=== PATIENT | female | born 1930 | race African-American/Black ===

== ENCOUNTER 2016-10-18 21:53 | Inpatient (IN) | payer MEDICARE, BC ==
[~2016-10-18] VITALS: Ht 162.6 cm; Wt 57.2 kg
[~2016-10-18 21:53] MED LIST: AMLODIPINE BESYL5 MG ORAL; ASPIR 8181 MG ORAL; ASPIRIN-LOW81 MG ORAL; BACTRIM 400-801 EACH ORAL; BACTRIM DS TAB1 EAC1 ORAL; CENTRUM SILVER1 EAC4 PO; CLINDAMYCIN HC300 MG ORAL; COREG3.125 MG ORAL; DAILY VITE1 EACH ORAL; DOCUSATE SODIU100 M2 ORAL; FERROUS GLUCON325 M2 PO; FUROSEMIDE20 M1 ORAL; ISOSORBIDE DINI10 MG ORAL; LASIX20 M1 ORAL; LISINOPRIL10 MG ORAL; LISINOPRIL20 MG ORAL; LISINOPRIL5 MG ORAL; LOPRESSOR25 M1 ORAL; METOPROLOL TART50 M1 ORAL; MIRTAZAPINE15 M1 ORAL; NEXIUM40 MG ORAL; NITROSTAT0.4 M1 SL; NORCO 5-325 TA1 EACH ORAL; OMEPRAZOLE20 M2 ORAL; OMEPRAZOLE20 M3 ORAL; PRAVASTATIN SOD20 M1 ORAL; PRINIVIL10 MG ORAL; RANEXA500 MG ORAL; SENSIPAR30 MG ORAL; TYLENOL650 MG/20. ORAL; VITAMIN C500 MG/11 PO; XARELTO10 MG ORAL; XARELTO15 MG ORAL; nitrostat
--- NOTE | 2016-10-18 22:24 | Emergency Room Report ---
History of Present Illness General Chief Complaint: Chest Pain Source: Patient, Family Member, Medical Record, EMS Present Illness HPI 86 YOF BIBEMS with substernal, sharp 10/10 non-radiating chest pain, now resolved before any intervention. Occurred at rest. Also occurred and resolved earlier in day. Per daughter, patient recently here for blood transfusion. Per review of EMR, patient was supposed to go for endoscopy after DC in September - did not go. Patient still taking Xarelto per family member. Allergies: Coded Allergies: NO KNOWN ALLERGIES (Unverified Allergy, Unknown, 09/05/15) Patient History Past Medical History: HTN, other - DVT on Xarelto, CKD, HTN, HLD Past Surgical History: unable to obtain Pertinent Family History: unable to obtain Social History: Denies: alcohol use, drug use, smoking Now: No Immunizations: UTD Reviewed Nursing Documentation: PMH: Agreed, PSxH: Agreed Nursing Documentation-PMH Past Medical History: No History, Except For Hx Cardiac Problems: Yes - Heart attack 2012, hyperlipidemia, RA, Hx Hypertension: Yes Hx Pacemaker: Yes Hx Asthma: No Hx COPD: No Hx Diabetes: No Hx Cancer: No Hx Gastrointestinal Problems: No Hx Dialysis: No Hx Neurological Problems: No Hx Cerebrovascular Accident: No Hx Dementia: Yes Hx Seizures: No Hx Dizziness: Yes - 03/21/16 Hx Weakness: Yes Review of Systems All Other Systems: negative except mentioned in HPI Physical Exam Vital Signs Date Time Temp Pulse Resp B/P Pulse Ox O2 Delivery O2 Flow Rate FiO2 10/18/16 21:57 99.0 78 16 139/79 98 Room Air Sp02 EP Interpretation: reviewed, normal General Appearance: normal inspection, well appearing, no apparent distress, alert, GCS 15, non-toxic Head: normocephalic, atraumatic Eyes: bilateral eye EOMI, bilateral eye PERRL ENT: normal ENT inspection, hearing grossly normal, normal voice Neck: normal inspection, full range of motion, supple, no bony tend Respiratory: normal inspection, lungs clear, normal breath sounds, no respiratory distress, no retraction, no wheezing Cardiovascular #1: regular rate, rhythm, no edema Gastrointestinal: normal inspection, normal bowel sounds, non tender, soft, no guarding, no hernia Genitourinary: no CVA tenderness Musculoskeletal: normal inspection, back normal, normal range of motion, Gaurav' s Sign negative Neurologic: normal inspection, alert, oriented x3, responsive, fur blower III-XII nml as tested, motor strength/tone normal, speech normal Psychiatric: normal inspection, judgement/insight normal, mood/affect normal Skin: normal inspection, normal color, no rash Lymphatic: normal inspection Procedures Critical Care Time Critical Care Time 45 minutes Care for a 86 YO F with Chest pain. PMHx and CAD risk factors include: HTN, HLD , CKD Presents warm, good color, asymptomatic now. Patient immediately placed on youth nutritional monitor with rhytm strip and STAT EKG was obtained which showed NSR, no ischemia. Labs indicated: CBC, CMP, troponin Highly suspected: AMI vs. unstable angina vs MSK pain Possible interventions - Heparin, SL Ntg, Nitro drip, Thrombolytics, repeat EKG. ASA HELD. Patient on Xarelto Critical care time of 45 minutes including: re-exams and consultations and review of serial EKG's and Laboratory tests, not including reportable procedures. Medical Decision Making Diagnostic Impression: Primary Impression: Chest pain Qualified Codes: R07.9 - Chest pain, unspecified Additional Impression: CKD (chronic kidney disease) Qualified Codes: N18.1 - Chronic kidney disease, stage 1 ER Course 86 YO F with 2 episodes of chest pain, short in duration, now resolved. VSS. Afebrile. DDx ACS, UA, MSK pain, GERD Visit here for similar episode last month PLAN Cardiac, O2 monitor, CXR, labs, Reassess EKG Diagnostic Results Rate: other - Ventricular paced rhythm ST Segments: no acute changes Rhythm Strip Diag. Results EP Interpretation: yes Rate: 73 Rhythm: other - V paced rhytm Chest X-Ray Diagnostic Results EP Interpretation: Yes Findings: no consolidation, no effusion, no pneumothorax, no acute cardiopulmonary disease Number of Views: 1 Reevaluation Time: 23:45 Last Vital Signs Date Time Temp Pulse Resp B/P Pulse Ox O2 Delivery O2 Flow Rate FiO2 10/18/16 21:57 99.0 78 16 139/79 98 Room Air Reevaluation Impression Labs: H&H stable. No leuks. DEBBIE, likely CKD, c/w past serumCr values. Troponin 0. EKG is ventricular paced CXR No acute abnormalities to explain CP Admitted to Dr Cruz at 1145pm for tele for ACS, chest pain rule out Disposition: ADMITTED INPATIENT Condition: Critical NICANOR RAPHAEL M.D. 3, 2017 22:24
[2016-10-18 22:42] VITALS: BP 153/86
[2016-10-18 22:49] LABS: BASOPHILS % (AUTO) 1.5 % (0.0-2.0); EOSINOPHILS % (AUTO) 2.9 % (0.0-3.0); LYMPHOCYTES % (AUTO) 23.7 % (20.0-45.0); MEAN CORPUSCULAR HEMOGLOBIN 29.9 PG (27.0-31.0); MEAN CORPUSCULAR HGB CONC 31.8 G/DL (32.0-36.0); MEAN CORPUSCULAR VOLUME 94 FL (80-99); MEAN PLATELET VOLUME 5.6 FL (6.5-10.1); MONOCYTES % (AUTO) 7.8 % (1.0-10.0); PLATELET COUNT 310 K/UL (150-450); RED BLOOD COUNT 3.52 M/UL (4.20-5.40); WHITE BLOOD COUNT 7.3 K/UL (4.8-10.8)
[2016-10-18 23:05] LABS: ALANINE AMINOTRANSFERASE 8 U/L (3-33); ALBUMIN/GLOBULIN RATIO 0.9 (1.0-2.7); ANION GAP 12 (5-15); ASPARTATE AMINO TRANSFERASE 14 U/L (5-40); CALCIUM 10.9 mg/dL (8.6-10.2); CARBON DIOXIDE 26 mEQ/L (20-30); CHLORIDE 106 mEQ/L (98-107); CREATININE 1.2 mg/dL (0.5-0.9); HEMOLYSIS 2; POTASSIUM 4.1 mEQ/L (3.4-4.9); SODIUM 144 mEQ/L (135-145); TOTAL PROTEIN 6.6 g/dL (6.6-8.7); TROPONIN I < 0.30 ng/mL (<=0.30)
[2016-10-18 23:16] LABS: CKMB < 1.5 ng/mL (< 3.8)
[2016-10-18 23:54] LABS: INR 1.2 (0.9-1.1)
[2016-10-19] MEDS ORDERED: UNOBMED (00:15)
[2016-10-19 00:30] VITALS: BP 175/89
[2016-10-19 04:00] VITALS: BP 163/59
[2016-10-19 07:09] LABS: BASOPHILS % (AUTO) 2.8 % (0.0-2.0); EOSINOPHILS % (AUTO) 4.1 % (0.0-3.0); LYMPHOCYTES % (AUTO) 29.9 % (20.0-45.0); MEAN CORPUSCULAR HEMOGLOBIN 29.6 PG (27.0-31.0); MEAN CORPUSCULAR HGB CONC 31.9 G/DL (32.0-36.0); MEAN CORPUSCULAR VOLUME 93 FL (80-99); MEAN PLATELET VOLUME 5.7 FL (6.5-10.1); MONOCYTES % (AUTO) 8.1 % (1.0-10.0); NEUTROPHILS % (AUTO) 55.1 % (45.0-75.0); PLATELET COUNT 260 K/UL (150-450); RED BLOOD COUNT 3.22 M/UL (4.20-5.40); RED CELL DISTRIBUTION WIDTH 16.1 % (11.6-14.8); WHITE BLOOD COUNT 6.7 K/UL (4.8-10.8)
[2016-10-19 07:20] LABS: TROPONIN I < 0.30 ng/mL (<=0.30)
[2016-10-19 07:27] LABS: ALANINE AMINOTRANSFERASE 5 U/L (3-33); ALBUMIN/GLOBULIN RATIO 0.9 (1.0-2.7); ANION GAP 7 (5-15); ASPARTATE AMINO TRANSFERASE 11 U/L (5-40); CALCIUM 10.5 mg/dL (8.6-10.2); CARBON DIOXIDE 25 mEQ/L (20-30); CHLORIDE 108 mEQ/L (98-107); HEMOLYSIS 0; MAGNESIUM 1.6 mg/dL (1.7-2.5); PHOSPHORUS 2.1 mg/dL (2.5-4.8); POTASSIUM 3.8 mEQ/L (3.4-4.9); SODIUM 140 mEQ/L (135-145); TOTAL PROTEIN 5.7 g/dL (6.6-8.7)
[2016-10-19 08:39] VITALS: BP 162/92
[2016-10-19] MEDS ORDERED: Xarelto 15mg tab ORAL SCH (09:00)
--- NOTE | 2016-10-19 09:46 | Wound Care Consultation ---
Wound Assessment Wound Assessment #1: Wound Number: #1 Wound Present on Admission: Yes New Wound: No Status Change of Wound: No Wound Location Body Site Modif: left Wound Location Body Site: ischial tuberosity Wound Type: pressure ulcer Crystal Test: Does not Crystal Pressure Ulcer Stage: III - scattered Wound Thickness: Full Thickness Wound Length: 6.0 Wound Width: 4.0 Wound Depth: 0.2 Percent of Wound Crane/Red: 100 Wound Drainage Amount: None Wound Drainage Odor: None/Absent Tissue Surrounding Wound: Macerated Wound General Appearance: Reddened Wound Assessment #2: Wound Number: #2 Wound Present on Admission: Yes New Wound: No Status Change of Wound: No Wound Location Body Site Modif: right Wound Location Body Site: ischial tuberosity Wound Type: pressure ulcer Crystal Test: Does not Crystal Pressure Ulcer Stage: III - scattered. Wound Thickness: Full Thickness Wound Length: 5.0 Wound Width: 2.0 Wound Depth: 0.2 Percent of Wound Crane/Red: 100 Wound Drainage Amount: None Wound Drainage Odor: None/Absent Tissue Surrounding Wound: Macerated Wound General Appearance: Reddened Wound Assessment #3: Wound Number: #3 Wound Present on Admission: Yes New Wound: No Status Change of Wound: No Wound Location Body Site Modif: left, lateral Wound Location Body Site: malleolus/ankle Wound Type: pressure ulcer Crystal Test: Does not Crystal Pressure Ulcer Stage: deep tissue injury Wound Thickness: Full Thickness Wound Length: 1.5 Wound Width: 1.5 Wound Depth: utd Percent of Wound Purple/Maroon: 100 Wound Drainage Amount: None Wound Drainage Odor: None/Absent Tissue Surrounding Wound: Erythemic Wound General Appearance: Reddened - surrounding tissue is reddened. wound site is maroon in color. Wound Comment #1 Right Ischial Tuberosity Pressure Ulcers Scattered Stage III. #2 Left Ischial Tuberosity Pressure Ulcer Scattered Stage III. #3 Left Lateral Malleolus Pressure Ulcer Deep Tissue Injury. Recommendation -Low Air Loss Overlay. -Local wound care as ordered. -Turn and reposition. -Offload both feet and heels. -Heel Protectors. -Optimize Nutrition. -Keep Clean and dry. -Assess and follow up with MD for any changes noted. FAHAD SEGUNDO Oct 19, 2016 09:46
[2016-10-19] MEDS: Sensipar 30mg Tab ORAL SCH (11:17)
[2016-10-19] MEDS: Metoprolol 50mg tab ORAL SCH ×2 (11:18→20:57)
[2016-10-19 12:06] VITALS: BP 157/100
--- NOTE | 2016-10-19 13:30 | History & Physical ---
History and Physical History & Physicial Dictated for Int med-Dr Cruz no. [id number]. RICKY DAVIS Oct 19, 2016 13:30
--- NOTE | 2016-10-19 15:06 | GI Initial Consult Note ---
History of Present Illness General Date patient seen: Oct 19, 2016 Time patient seen: 15:05 Reason for Hospitalization: Chest Pain Referring physician: KAYLEY DAVIS Reason for Consultation: ANEMIA Present Illness HPI 86 YOF BIBEMS with substernal, sharp 10/10 non-radiating chest pain, now resolved before any intervention. Occurred at rest. Also occurred and resolved earlier in day. Per daughter, patient recently here for blood transfusion. Per review of EMR, patient was supposed to go for endoscopy after DC in September - did not go. Patient still taking Xarelto per family member. GI NOTE: HPI as noted above. Pt was admitted previously here at [facility] 2 weeks ago scheduled for EGD/colonoscopy to evaluate for anemia and was cancelled anesthesia due to elevated BP and irregular heart rate. She presents today with anemia and hypoalbuminemia. Pt seen on floor awake, A&Ox4 NAD with no complaints of chest pain at this moment. No GI complaints noted as well by the patient. Home Meds Active Scripts Lisinopril* (PRINIVIL*) 10 Mg Tablet, 10 MG ORAL DAILY for 30 Days, TAB Prov:ORLANDO LUDWIG N.PSalas 04/10/15 Reported Medications Unable to Obtain Medications (UNABLE TO OBTAIN MEDS) 1 Ea Ea 10/19/16 Rivaroxaban (XARELTO) 15 Mg Tablet, 15 MG ORAL DAILY, MG 0 Refills 10/08/16 Lisinopril (LISINOPRIL*) 20 Mg Tablet, 20 MG ORAL BID, TAB 09/30/16 Metoprolol Tartrate* (METOPROLOL TARTRATE*) 50 Mg Tablet, 50 MG ORAL BID, TAB 03/21/16 Cinacalcet* (SENSIPAR*) 30 Mg Tablet, 30 MG ORAL DAILY, TAB 03/21/16 Multivitamin (DAILY ULYSSES) 1 Each Tablet, 1 TAB ORAL DAILY, #30 TAB 0 Refills 03/21/16 Docusate Sodium (DOCUSATE SODIUM) 100 Mg Tablet, 100 MG ORAL TWICE A DAY, #60 TAB 0 Refills 03/21/16 Vit C/Ascorbate Ca/Ascorb Sod (VITAMIN C 500 MG/15 ML LIQUID) 500 Mg/15 Ml Liquid, 500 MG PO, ML 03/21/16 Mirtazapine (MIRTAZAPINE) 15 Mg Tab.rapdis, 15 MG ORAL BEDTIME, TAB 03/21/16 Esomeprazole Magnesium (NEXIUM) 40 Mg Capsule.dr, 40 MG ORAL DAILY, CAP 03/21/16 Amlodipine Besylate* (AMLODIPINE BESYLATE*) 5 Mg Tablet, 5 MG ORAL DAILY, TAB 09/05/15 Furosemide* (LASIX*) 20 Mg Tablet, 20 MG ORAL DAILY, TAB 09/05/15 Nitroglycerin (NITROSTAT) 0.4 Mg Tab.subl, 0.4 MG SL Q5M X3 DOSES Y for To Patient Comfort, #25 TAB 0 Refills 04/02/15 Ranolazine* (RANEXA*) 500 Mg Tab.er.12h, 500 MG ORAL DAILY, #60 TAB 0 Refills 04/02/15 Pravastatin Sod* (PRAVASTATIN SOD*) 20 Mg Tablet, 40 MG ORAL BEDTIME, TAB 05/31/14 Discontinued Reported Medications Acetaminophen (Acetaminophen) 650 Mg/20.3 Ml Solution, 650 MG ORAL Q6H Y for Prn Headache/Temp > 101, ML 0 Refills 04/05/16 Med list reviewed/reconciled: Yes Allergies: Coded Allergies: NO KNOWN ALLERGIES (Unverified Allergy, Unknown, 09/05/15) Patient History History Provided By: Patient, Medical Record PMH Narrative Past Medical History: HTN, other - DVT on Xarelto, CKD, HTN, HLD Past Surgical History: unable to obtain Pertinent Family History: unable to obtain Social History: Denies: alcohol use, drug use, smoking Now: No Immunizations: UTD Reviewed Nursing Documentation: PMH: Agreed, PSxH: Agreed Nursing Documentation-PMH Past Medical History: No History, Except For Hx Cardiac Problems: Yes - Heart attack 2013, hyperlipidemia, RA, Hx Hypertension: Yes Hx Pacemaker: Yes Hx Asthma: No Hx COPD: No Hx Diabetes: No Hx Cancer: No Hx Gastrointestinal Problems: No Hx Dialysis: No Hx Neurological Problems: No Hx Cerebrovascular Accident: No Hx Dementia: Yes Hx Seizures: No Hx Dizziness: Yes - 03/21/16 Hx Weakness: Yes Review of Systems All Other Systems: negative except mentioned in HPI Physical Exam Vital Signs Date Time Temp Pulse Resp B/P Pulse Ox O2 Delivery O2 Flow Rate FiO2 10/18/16 21:57 99.0 78 16 139/79 98 Room Air Sp02 EP Interpretation: reviewed Labs Laboratory Tests Test 10/18/16 22:33 10/18/16 23:10 10/19/16 06:50 White Blood Count 7.3 K/UL (4.8-10.8) 6.7 K/UL (4.8-10.8) Red Blood Count 3.52 M/UL (4.20-5.40) L 3.22 M/UL (4.20-5.40) L Hemoglobin 10.5 G/DL (12.0-16.0) L 9.5 G/DL (12.0-16.0) L Hematocrit 33.1 % (37.0-47.0) L 29.9 % (37.0-47.0) L Mean Corpuscular Volume 94 FL (80-99) 93 FL (80-99) Mean Corpuscular Hemoglobin 29.9 PG (27.0-31.0) 29.6 PG (27.0-31.0) Mean Corpuscular Hemoglobin Concent 31.8 G/DL (32.0-36.0) L 31.9 G/DL (32.0-36.0) L Red Cell Distribution Width 16.0 % (11.6-14.8) H 16.1 % (11.6-14.8) H Platelet Count 310 K/UL (150-450) 260 K/UL (150-450) Mean Platelet Volume 5.6 FL (6.5-10.1) L 5.7 FL (6.5-10.1) L Neutrophils (%) (Auto) 64.0 % (45.0-75.0) 55.1 % (45.0-75.0) Lymphocytes (%) (Auto) 23.7 % (20.0-45.0) 29.9 % (20.0-45.0) Monocytes (%) (Auto) 7.8 % (1.0-10.0) 8.1 % (1.0-10.0) Eosinophils (%) (Auto) 2.9 % (0.0-3.0) 4.1 % (0.0-3.0) H Basophils (%) (Auto) 1.5 % (0.0-2.0) 2.8 % (0.0-2.0) H Sodium Level 144 mEQ/L (135-145) 140 mEQ/L (135-145) Potassium Level 4.1 mEQ/L (3.4-4.9) 3.8 mEQ/L (3.4-4.9) Chloride Level 106 mEQ/L (98-107) 108 mEQ/L (98-107) H Carbon Dioxide Level 26 mEQ/L (20-30) 25 mEQ/L (20-30) Anion Gap 12 (5-15) 7 (5-15) Blood Urea Nitrogen 16 mg/dL (7-23) 14 mg/dL (7-23) Creatinine 1.2 mg/dL (0.5-0.9) H 1.0 mg/dL (0.5-0.9) H Estimat Glomerular Filtration Rate mL/min (>60) mL/min (>60) Glucose Level 104 mg/dL (74-106) 88 mg/dL (74-106) Calcium Level 10.9 mg/dL (8.6-10.2) H 10.5 mg/dL (8.6-10.2) H Total Bilirubin 0.6 mg/dL (0.0-1.2) 0.6 mg/dL (0.0-1.2) Aspartate Amino Transf (AST/SGOT) 14 U/L (5-40) 11 U/L (5-40) Alanine Aminotransferase (ALT/SGPT) 8 U/L (3-33) 5 U/L (3-33) Alkaline Phosphatase 61 U/L (35-104) 56 U/L (35-104) Total Creatine Kinase 10 U/L (26-140) L Creatine Kinase MB < 1.5 ng/mL (< 3.8) Creatine Kinase MB Relative Index 15.0 Troponin I < 0.30 ng/mL (<=0.30) < 0.30 ng/mL (<=0.30) Total Protein 6.6 g/dL (6.6-8.7) 5.7 g/dL (6.6-8.7) L Albumin 3.2 g/dL (3.5-5.2) L 2.8 g/dL (3.5-5.2) L Globulin 3.4 g/dL 2.9 g/dL Albumin/Globulin Ratio 0.9 (1.0-2.7) L 0.9 (1.0-2.7) L Prothrombin Time 12.0 SEC (9.30-11.50) H Prothromb Time International Ratio 1.2 (0.9-1.1) H Activated Partial Thromboplast Time 25 SEC (23-33) Phosphorus Level 2.1 mg/dL (2.5-4.8) L Magnesium Level 1.6 mg/dL (1.7-2.5) L General Appearance: well appearing, no apparent distress, alert Head: normocephalic EENT: normal ENT inspection Neck: full range of motion, supple Respiratory: normal breath sounds, no respiratory distress Cardiovascular: normal rate Gastrointestinal: non tender, soft, normal bowel sounds Rectal: deferred Neurologic: normal inspection, alert, oriented x3, responsive Psychiatric: normal inspection, judgement/insight normal, memory normal Skin: normal inspection, normal color, no rash Lymphatic: normal inspection, no adenopathy Current Medications Current Medications Medications (Trade) Dose Ordered Sig/David Route PRN Reason Start Time Stop Time Status Last Admin Dose Admin Amlodipine Besylate (Norvasc) 5 mg DAILY ORAL 10/19/16 09:00 11/18/16 08:59 10/19/16 11:17 Cinacalcet (Sensipar) 30 mg DAILY ORAL 10/19/16 09:00 11/18/16 08:59 10/19/16 11:17 Furosemide (Lasix) 20 mg DAILY ORAL 10/19/16 09:00 11/18/16 08:59 10/19/16 11:17 Metoprolol Tartrate (Lopressor) 50 mg Q12HR ORAL 10/19/16 09:00 11/18/16 08:59 10/19/16 11:18 Mirtazapine (Remeron) 15 mg BEDTIME ORAL 10/19/16 21:00 11/18/16 20:59 Pravastatin Sodium (Pravachol) 40 mg BEDTIME ORAL 10/19/16 21:00 11/18/16 20:59 Rivaroxaban (Xarelto) 15 mg DAILY ORAL 10/19/16 09:00 11/18/16 08:59 10/19/16 11:17 GI: Plan Problems: (1) chest pain (2) Hypoalbuminemia (3) Iron deficiency (4) Alzheimer's dementia (5) Anemia Plan hold tomorrow's dose of Xarelto 15mg for possible EGD/colonoscopy monday, will d /w cardiology before scheduling. monitor H&H >> transfused prn anemia work up OB stool uncollected ordered iron panel bowel regime H2 fu labs Discussed with Dr. Miles. Thank you for referring this patient, we will follow. Lyndsay Torres N.P. Oct 19, 2016 15:05
[2016-10-19 16:00] VITALS: BP 154/94
[2016-10-19] MEDS: Docusate 100mg cap ORAL SCH (17:53)
--- NOTE | 2016-10-19 18:47 | History and Physical Report ---
DATE OF ADMISSION: 10/18/2016 CHIEF COMPLAINT: The patient is an 86-year-old female, presents with chief complaint of chest pain. HISTORY OF PRESENT ILLNESS: The patient was admitted to [facility] in September 2016. Please see history and physical and discharge summary dictated at that time. The patient presented to [place] emergency room complaining of chest pain. The patient herself is a poor historian. Much of the history and physical is obtained from the patient's chart and the patient's daughter. According to the daughter, the chest pain was 10/10 in intensity, did not radiate to the jaw or to the arm. The patient presented to [place] emergency room. The patient was admitted for chest pain to rule out acute myocardial infarction. PAST MEDICAL HISTORY: Significant for 1. Hypertension. 2. Diabetes type 2. 3. Peripheral vascular disease. 4. Coronary artery disease, status post non-ST elevated [place]. 5. Paroxysmal atrial fibrillation. 6. History of right lower extremity deep venous thrombosis, on Xarelto. 7. Anemia. 8. Arthritis. 9. History of renal failure. PAST SURGICAL HISTORY: Significant for Biotronik pacemaker implantation. CURRENT MEDICATIONS: 1. Amlodipine 5 mg one tablet p.o. daily. 2. Sensipar 30 mg one tablet p.o. daily. 3. Nexium 40 mg one tablet p.o. daily. 4. Lasix 20 mg one tablet p.o. daily. 5. Lisinopril 20 mg one tablet p.o. twice daily. 6. Metoprolol 50 mg one tablet p.o. twice daily. 7. Mirtazapine 15 mg one tablet p.o. at bedtime. 8. Multivitamin daily. 9. Nitroglycerin. 10. Pravastatin 40 mg one tablet p.o. at bedtime. 11. Ranexa 500 mg one tablet p.o. daily. 12. Xarelto 15 mg one tablet p.o. daily. ALLERGIES: No known drug allergies. SOCIAL HISTORY: The patient lives with her granddaughter, Sisi Michaud. The patient denies tobacco or alcohol use. REVIEW OF SYSTEMS: Constitutional: The patient denies weight loss or weight gain. The patient denies fevers or chills. HEENT: The patient denies ear or throat pain. Cardiovascular: The patient denies palpitations. The patient does complain of chest pain as above. Abdomen: The patient denies nausea, vomiting, diarrhea or constipation. Genitourinary: The patient denies dysuria or frequency of urination. Neuromuscular: The patient denies seizures or generalized weakness. PHYSICAL EXAMINATION: GENERAL: The patient is well developed and well nourished, thin appearing female, in no apparent distress. VITAL SIGNS: Temperature 97.5 degrees, respirations 20, pulse 69, and blood pressure 162/92. HEENT: Eyes, pupils are equal and responsive to light and accommodation. Extraocular moves are intact. NECK: Supple without lymphadenopathy. CHEST: Lungs are clear to auscultation bilaterally without wheezes or rales. CARDIOVASCULAR: Regular rhythm and rate. S1 and S2 normal without murmurs, rubs, or gallops. ABDOMEN: Soft, nontender, and nondistended. Positive bowel sounds. No evidence of hepatosplenomegaly. Currently no rebound or guarding noted. EXTREMITIES: Negative for clubbing, cyanosis, or edema. RECTAL: Refused. GENITAL: Refused. NEUROLOGIC: Cranial nerves II through XII are grossly intact without focal deficits. Motor strength is 5/5 bilaterally. Deep tendon reflexes are 2+ plantar. LABORATORY AND DIAGNOSTIC DATA: WBC 7.3, hemoglobin 10.5, hematocrit 33.1, and platelets 310,000. Sodium 144, potassium 4.1, chloride 106, CO2 26, BUN 16, creatinine 1.2, and glucose 104. Troponin normal at less than 0.3. ASSESSMENT: This is an 86-year-old female 1. Chest pain. 2. History of anemia. 3. Hypertension. 4. Diabetes type 2. 5. History of coronary artery disease. 6. Renal failure. 7. Paroxysmal atrial fibrillation. 8. History of right lower extremity deep venous thrombosis. 9. Arthritis. 10. Alzheimer's dementia. 11. Pacemaker in situ. TREATMENT: 1. Chest pain. A Cardiology consultation with Dr. Hal Davenport. Serial troponin levels will be run. A Cardiolite stress test may or may not be performed secondary to the patient's age. We will follow recommendations of Cardiology, Dr. Davenport. 2. Hypertension. Continue lisinopril and metoprolol as above. 3. Diabetes type 2. The patient has been placed on a regular insulin sliding scale. 4. Hypercholesterolemia. Continue Pravachol as above. 5. History of coronary artery disease. As above Cardiology consultation with Dr. Hal Davenport. 6. History of renal failure. 7. History of paroxysmal atrial fibrillation. 8. Right lower extremity deep venous thrombosis, Xarelto is currently at 15 mg daily. Continue Xarelto as above. 9. History of arthritis. 10. History of Alzheimer's dementia. 11. Pacemaker in situ. Bradley Holland M.D. DR: BELA JOB#: [id number] CC:
[2016-10-19 20:00] VITALS: BP 156/74
[2016-10-19] MEDS: Miralax 17gm pkt ORAL SCH (20:57)
[2016-10-20 00:15] VITALS: BP 154/97
[2016-10-20 04:00] VITALS: BP 160/95
[2016-10-20 07:51] VITALS: BP 164/99
[2016-10-20 08:04] LABS: EOSINOPHILS % (AUTO) 3.1 % (0.0-3.0); LYMPHOCYTES % (AUTO) 27.3 % (20.0-45.0); MEAN CORPUSCULAR HEMOGLOBIN 30.2 PG (27.0-31.0); MEAN CORPUSCULAR HGB CONC 32.4 G/DL (32.0-36.0); MEAN CORPUSCULAR VOLUME 93 FL (80-99); MEAN PLATELET VOLUME 5.6 FL (6.5-10.1); NEUTROPHILS % (AUTO) 60.7 % (45.0-75.0); PLATELET COUNT 300 K/UL (150-450); RED BLOOD COUNT 3.98 M/UL (4.20-5.40); RED CELL DISTRIBUTION WIDTH 16.4 % (11.6-14.8)
[2016-10-20 08:20] LABS: ANION GAP 10 (5-15); CALCIUM 10.9 mg/dL (8.6-10.2); CARBON DIOXIDE 26 mEQ/L (20-30); CHLORIDE 106 mEQ/L (98-107); HEMOLYSIS 26; POTASSIUM 3.8 mEQ/L (3.4-4.9); SODIUM 142 mEQ/L (135-145)
[2016-10-20 08:23] LABS: TROPONIN I < 0.30 ng/mL (<=0.30)
[2016-10-20 08:29] LABS: HEMOLYSIS 11; IRON 53 ug/dL (37-145); TOTAL IRON BINDING CAPACITY 186 ug/dL (250-400)
[2016-10-20] MEDS: Sensipar 30mg Tab ORAL SCH (09:22)
[2016-10-20] MEDS: Docusate 100mg cap ORAL SCH ×3 (09:22→17:46)
[2016-10-20] MEDS: Metoprolol 50mg tab ORAL SCH (09:26)
[2016-10-20 12:01] VITALS: BP 166/111
--- NOTE | 2016-10-20 14:12 | GI Progress Note ---
Assessment/Plan Problems: (1) Anemia ICD Codes: D64.9 - Anemia, unspecified SNOMED: 326670639 (2) Iron deficiency ICD Codes: E61.1 - Iron deficiency SNOMED: 89183116 (3) Hypoalbuminemia ICD Codes: E88.09 - Other disorders of plasma-protein metabolism, not elsewhere classified SNOMED: 679869628 Status: stable Status Narrative Discussed with Dr. Miles. Assessment/Plan patient had EGD/colonoscopy last year 10/31. See full report below. pt scheduled for outpatient capsule endoscopy to evaluate anemia. monitor H&H >> transfused prn PPI daily given history of severe gastritis adv diet iron deficient >> venofer bowel regime okay to cont all cardiac medications fu labs The patient was seen and examined at bedside and all new and available data was reviewed in the patients chart. I agree with the above findings, impression and plan. (Patient seen earlier today. Signature stamp does not reflect patient encounter time.). -Ruben Miles MD Subjective Gastrointestinal/Abdominal: Reports: no symptoms Objective Last 24 Hour Vital Signs Date Time Temp Pulse Resp B/P Pulse Ox O2 Delivery O2 Flow Rate FiO2 10/20/16 12:01 97.5 81 20 166/111 96 Room Air 10/20/16 09:26 96 164/99 10/20/16 09:24 96 164/99 10/20/16 07:51 97.7 20 164/99 99 Room Air 10/20/16 07:43 77 10/20/16 04:00 74 10/20/16 04:00 97.3 73 20 160/95 99 Room Air 10/20/16 00:15 97.7 73 20 154/97 98 Room Air 10/20/16 00:00 78 10/19/16 20:57 69 156/74 10/19/16 20:00 97.7 69 20 156/74 98 Room Air 10/19/16 20:00 70 10/19/16 16:00 97.5 71 18 154/94 100 Room Air 10/19/16 16:00 69 Intake and Output 10/19/16 10/20/16 19:00 07:00 Intake Total 120 ml Output Total 450 ml Balance 120 ml -450 ml Intake Oral 120 ml Output Urine Total 450 ml # Voids 1 6 # Bowel Movements 2 Laboratory Tests Test 10/20/16 06:55 White Blood Count 8.0 K/UL (4.8-10.8) Red Blood Count 3.98 M/UL (4.20-5.40) L Hemoglobin 12.0 G/DL (12.0-16.0) Hematocrit 37.1 % (37.0-47.0) Mean Corpuscular Volume 93 FL (80-99) Mean Corpuscular Hemoglobin 30.2 PG (27.0-31.0) Mean Corpuscular Hemoglobin Concent 32.4 G/DL (32.0-36.0) Red Cell Distribution Width 16.4 % (11.6-14.8) H Platelet Count 300 K/UL (150-450) Mean Platelet Volume 5.6 FL (6.5-10.1) L Neutrophils (%) (Auto) 60.7 % (45.0-75.0) Lymphocytes (%) (Auto) 27.3 % (20.0-45.0) Monocytes (%) (Auto) 7.0 % (1.0-10.0) Eosinophils (%) (Auto) 3.1 % (0.0-3.0) H Basophils (%) (Auto) 2.0 % (0.0-2.0) Sodium Level 142 mEQ/L (135-145) Potassium Level 3.8 mEQ/L (3.4-4.9) Chloride Level 106 mEQ/L (98-107) Carbon Dioxide Level 26 mEQ/L (20-30) Anion Gap 10 (5-15) Blood Urea Nitrogen 12 mg/dL (7-23) Creatinine 1.0 mg/dL (0.5-0.9) H Estimat Glomerular Filtration Rate mL/min (>60) Glucose Level 80 mg/dL (74-106) Calcium Level 10.9 mg/dL (8.6-10.2) H Iron Level 53 ug/dL (37-145) Total Iron Binding Capacity 186 ug/dL (250-400) L Percent Iron Saturation 28 % (15-50) Unsaturated Iron Binding 133 ug/dL (112-346) Troponin I < 0.30 ng/mL (<=0.30) Height (Feet): 5 Height (Inches): 4.00 Weight (Pounds): 126 General Appearance: no apparent distress, alert, thin Cardiovascular: normal rate Respiratory/Chest: normal breath sounds, no respiratory distress Abdominal Exam: normal bowel sounds, non tender, soft Objective DATE OF PROCEDURE: 10/23/2015 SURGEON: Ruben Miles M.D. ANESTHESIOLOGIST: Rolando Anaya M.D. PROCEDURE: Upper endoscopy with biopsy and colonoscopy with biopsy and polypectomy. INDICATION: Anemia, screening colonoscopy evaluation, abdominal pain, and GERD. SUMMARY OF FINDINGS: 1. Severe gastritis, status post biopsy. 2. Duodenal polyp, status post biopsy. 3. Inflammatory looking polyp in the antrum of the stomach, status post biopsy. 4. Paraesophageal hernia. 5. Two colonic polyp removed, see above for details. 6. Diverticulosis. 7. Internal hemorrhoids. RECOMMENDATIONS: Follow up biopsy results and treat accordingly. Lyndsay Torres N.P. Oct 20, 2016 14:12 RUBEN MILES Oct 21, 2016 08:47
[2016-10-20 16:00] VITALS: BP 153/103
--- NOTE | 2016-10-20 16:46 | Cardiac Electrophysiology PN ---
Subjective Subjective [id number] Objective Last 24 Hour Vital Signs Date Time Temp Pulse Resp B/P Pulse Ox O2 Delivery O2 Flow Rate FiO2 10/20/16 12:01 97.5 81 20 166/111 96 Room Air 10/20/16 09:26 96 164/99 10/20/16 09:24 96 164/99 10/20/16 07:51 97.7 20 164/99 99 Room Air 10/20/16 07:43 77 10/20/16 04:00 74 10/20/16 04:00 97.3 73 20 160/95 99 Room Air 10/20/16 00:15 97.7 73 20 154/97 98 Room Air 10/20/16 00:00 78 10/19/16 20:57 69 156/74 10/19/16 20:00 97.7 69 20 156/74 98 Room Air 10/19/16 20:00 70 Intake and Output 10/19/16 10/20/16 19:00 07:00 Intake Total 120 ml Output Total 450 ml Balance 120 ml -450 ml Intake Oral 120 ml Output Urine Total 450 ml # Voids 1 6 # Bowel Movements 2 Laboratory Tests Test 10/20/16 06:55 White Blood Count 8.0 K/UL (4.8-10.8) Red Blood Count 3.98 M/UL (4.20-5.40) L Hemoglobin 12.0 G/DL (12.0-16.0) Hematocrit 37.1 % (37.0-47.0) Mean Corpuscular Volume 93 FL (80-99) Mean Corpuscular Hemoglobin 30.2 PG (27.0-31.0) Mean Corpuscular Hemoglobin Concent 32.4 G/DL (32.0-36.0) Red Cell Distribution Width 16.4 % (11.6-14.8) H Platelet Count 300 K/UL (150-450) Mean Platelet Volume 5.6 FL (6.5-10.1) L Neutrophils (%) (Auto) 60.7 % (45.0-75.0) Lymphocytes (%) (Auto) 27.3 % (20.0-45.0) Monocytes (%) (Auto) 7.0 % (1.0-10.0) Eosinophils (%) (Auto) 3.1 % (0.0-3.0) H Basophils (%) (Auto) 2.0 % (0.0-2.0) Sodium Level 142 mEQ/L (135-145) Potassium Level 3.8 mEQ/L (3.4-4.9) Chloride Level 106 mEQ/L (98-107) Carbon Dioxide Level 26 mEQ/L (20-30) Anion Gap 10 (5-15) Blood Urea Nitrogen 12 mg/dL (7-23) Creatinine 1.0 mg/dL (0.5-0.9) H Estimat Glomerular Filtration Rate mL/min (>60) Glucose Level 80 mg/dL (74-106) Calcium Level 10.9 mg/dL (8.6-10.2) H Iron Level 53 ug/dL (37-145) Total Iron Binding Capacity 186 ug/dL (250-400) L Percent Iron Saturation 28 % (15-50) Unsaturated Iron Binding 133 ug/dL (112-346) Troponin I < 0.30 ng/mL (<=0.30) Microbiology Date/Time Source Procedure Growth Status 10/19/16 00:15 Rectum VRE Culture - Final Enterococcus Faecalis - Vre Complete STAR ROA Oct 20, 2016 16:46
--- NOTE | 2016-10-20 17:01 | Internal Med Progress Note ---
Subjective Date of Service: Oct 20, 2016 Physician Name Bradley Davis Attending Physician Titi Cruz MD Current Medications Medications (Trade) Dose Ordered Sig/David Route PRN Reason Start Time Stop Time Status Last Admin Dose Admin Cinacalcet (Sensipar) 30 mg DAILY ORAL 10/19/16 09:00 11/18/16 08:59 10/20/16 09:22 Docusate Sodium (Colace) 100 mg THREE TIMES A DAY ORAL 10/19/16 18:00 11/18/16 17:59 10/20/16 13:40 Furosemide (Lasix) 20 mg DAILY ORAL 10/19/16 09:00 11/18/16 08:59 10/20/16 09:23 Metoprolol Tartrate (Lopressor) 100 mg Q12HR ORAL 10/20/16 21:00 11/19/16 20:59 Mirtazapine (Remeron) 15 mg BEDTIME ORAL 10/19/16 21:00 11/18/16 20:59 10/19/16 20:57 Pantoprazole (Protonix) 40 mg DAILY ORAL 10/21/16 09:00 11/20/16 08:59 Polyethylene Glycol (Miralax) 17 gm BEDTIME ORAL 10/19/16 21:00 11/18/16 20:59 10/19/16 20:57 Pravastatin Sodium (Pravachol) 40 mg BEDTIME ORAL 10/19/16 21:00 11/18/16 20:59 10/19/16 20:56 Allergies: Coded Allergies: NO KNOWN ALLERGIES (Unverified Allergy, Unknown, 09/05/15) ROS Limited/Unobtainable: Yes Subjective Cover for Int Med-Dr Cruz Objective Last Vital Signs Date Time Temp Pulse Resp B/P Pulse Ox O2 Delivery O2 Flow Rate FiO2 10/20/16 12:01 97.5 81 20 166/111 96 Room Air General Appearance: mild distress, thin EENT: PERRL/EOMI, normal ENT inspection Neck: non-tender, normal alignment, supple Cardiovascular: normal peripheral pulses, normal rate, no gallop/murmur, no JVD , irregularly irregular Respiratory/Chest: chest wall non-tender, lungs clear, normal breath sounds, no respiratory distress, no accessory muscle use Abdomen: normal bowel sounds, non tender, soft, no organomegaly, no mass Extremities: normal range of motion, non-tender 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: 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 grossly normal, no motor/sensory deficits Skin: normal pigmentation, warm/dry Laboratory Tests Test 10/20/16 06:55 White Blood Count 8.0 K/UL (4.8-10.8) Red Blood Count 3.98 M/UL (4.20-5.40) L Hemoglobin 12.0 G/DL (12.0-16.0) Hematocrit 37.1 % (37.0-47.0) Mean Corpuscular Volume 93 FL (80-99) Mean Corpuscular Hemoglobin 30.2 PG (27.0-31.0) Mean Corpuscular Hemoglobin Concent 32.4 G/DL (32.0-36.0) Red Cell Distribution Width 16.4 % (11.6-14.8) H Platelet Count 300 K/UL (150-450) Mean Platelet Volume 5.6 FL (6.5-10.1) L Neutrophils (%) (Auto) 60.7 % (45.0-75.0) Lymphocytes (%) (Auto) 27.3 % (20.0-45.0) Monocytes (%) (Auto) 7.0 % (1.0-10.0) Eosinophils (%) (Auto) 3.1 % (0.0-3.0) H Basophils (%) (Auto) 2.0 % (0.0-2.0) Sodium Level 142 mEQ/L (135-145) Potassium Level 3.8 mEQ/L (3.4-4.9) Chloride Level 106 mEQ/L (98-107) Carbon Dioxide Level 26 mEQ/L (20-30) Anion Gap 10 (5-15) Blood Urea Nitrogen 12 mg/dL (7-23) Creatinine 1.0 mg/dL (0.5-0.9) H Estimat Glomerular Filtration Rate mL/min (>60) Glucose Level 80 mg/dL (74-106) Calcium Level 10.9 mg/dL (8.6-10.2) H Iron Level 53 ug/dL (37-145) Total Iron Binding Capacity 186 ug/dL (250-400) L Percent Iron Saturation 28 % (15-50) Unsaturated Iron Binding 133 ug/dL (112-346) Troponin I < 0.30 ng/mL (<=0.30) Microbiology Date/Time Source Procedure Growth Status 10/19/16 00:15 Rectum VRE Culture - Final Enterococcus Faecalis - Vre Complete Intake and Output 10/19/16 10/20/16 19:00 07:00 Intake Total 120 ml Output Total 450 ml Balance 120 ml -450 ml Intake Oral 120 ml Output Urine Total 450 ml # Voids 1 6 # Bowel Movements 2 Assessment/Plan Problem List: (1) Hypertension Assessment & Plan: Cont Metoprolol (2) Chest pain Assessment & Plan: See cardiology note. (3) Diabetes mellitus (4) Atrial fibrillation Assessment & Plan: See cardiology note. (5) CAD (coronary artery disease) (6) Hypercholesteremia Assessment & Plan: Cont pravachol. (7) Renal failure (8) History of DVT (deep vein thrombosis) Assessment & Plan: Hold xarelto due to history of GI bleed (9) Alzheimer's dementia (10) Pacemaker Status: not improved BRADLEY DAVIS Oct 20, 2016 17:01
[2016-10-20] MEDS ORDERED: Norco 5mg/325mg tab ORAL PRN (17:15)
[2016-10-20 20:00] VITALS: BP 138/77
[2016-10-20] MEDS: Miralax 17gm pkt ORAL SCH ×2 (20:11→21:00)
[2016-10-21] VITALS (7 sets, daily range): BP systolic 113–145; BP diastolic 62–84
--- NOTE | 2016-10-21 00:28 | Consultation ---
DATE OF CONSULTATION: CARDIOLOGY CONSULTATION CONSULTING PHYSICIAN: Hal Davenport M.D. REFERRING PHYSICIAN: Titi Cruz M.D. REASON FOR CONSULTATION: Hypertension and atrial fibrillation with evaluation of the patient's pacemaker. HISTORY OF PRESENT ILLNESS: The patient is a very pleasant 86-year-old lady under my cardiology care, who was just discharged from the hospital some 10 days ago. The patient has a history of hypertension, chronic atrial fibrillation, on anticoagulation as well as history of Biotronik pacemaker implantation by me, who has also had her pacemaker checked in my office recently. The patient also has chronic kidney disease with creatinine of 1.8. On previous admission, the patient was found to be profoundly anemic with hemoglobin of 7.2, and the patient's Xarelto was discontinued at that time. The patient was brought to the emergency room where she was complaining of chest pain. She states that the pain was 10/10, but did not have any radiation. It was not associated with shortness of breath either. At the time of my evaluation, the pain had completely resolved. Her EKG showed baseline atrial fibrillation and ventricularly paced rhythm. PAST MEDICAL HISTORY: 1. Hypertension. 2. Diabetes. 3. Chronic atrial fibrillation. 4. History of Biotronik pacemaker implantation as mentioned above. 5. History of coronary artery disease with non-ST elevation myocardial infarction. 6. Profound anemia with hemoglobin around 5. 7. Right lower extremity DVT, for which she was on Xarelto. 8. Hyperlipidemia. FAMILY HISTORY: Noncontributory. SOCIAL HISTORY: She lives at home. Does not smoke or drink alcohol. REVIEW OF SYSTEM: Review of systems was performed and was negative other than what was mentioned in the history of present illness. PHYSICAL EXAMINATION: VITAL SIGNS: Blood pressure is 130/70, pulse is 80, respirations 18, and she is afebrile. NECK: Shows no JVD. LUNGS: Decreased breath sounds. CARDIOVASCULAR: Irregular S1 and S2 with a 2/6 systolic murmur, rhythm. ABDOMEN: Soft. EXTREMITIES: Have 2+ pitting edema. LABORATORY DATA: Show white count of 8, hemoglobin of 12, hematocrit of 37, and platelet count is 300,000. Sodium is 142, potassium 3.8, BUN of 12, creatinine of 1, and glucose of 80. Troponin is negative x2. ASSESSMENT AND PLAN: 1. Atypical chest pain. The patient was ruled out for myocardial infarction. EKG is not interpretable as she is ventricularly paced. The patient does not have any further chest pain. At this time, we will treat the patient medically with metoprolol 50 mg b.i.d. 2. She also has Biotronik pacemaker implantation that was interrogated on previous admission, showed normal function. 3. Hypertension, on metoprolol 50 mg b.i.d., Norvasc 5 mg, and Lasix 20 mg daily. 4. Hyperlipidemia, on Pravachol. 5. Chronic kidney disease. 6. Iron-deficiency anemia. The patient had esophagogastroduodenoscopy and colonoscopy in October 2015 and will be scheduled for outpatient endoscopy to evaluate for anemia and transfusion on a p.r.n. basis. Thank you very much, Dr. Cruz, for allowing me to participate in the care of this patient. Please do not hesitate to contact me if you have any questions regarding my evaluation. Hal Davenport M.D. DR: ALTON JOB#: [id number] CC:
[2016-10-21 06:54] LABS: BASOPHILS % (AUTO) 1.9 % (0.0-2.0); EOSINOPHILS % (AUTO) 1.9 % (0.0-3.0); LYMPHOCYTES % (AUTO) 18.3 % (20.0-45.0); MEAN CORPUSCULAR VOLUME 94 FL (80-99); MEAN PLATELET VOLUME 6.1 FL (6.5-10.1); MONOCYTES % (AUTO) 6.9 % (1.0-10.0); PLATELET COUNT 316 K/UL (150-450); RED BLOOD COUNT 4.14 M/UL (4.20-5.40); RED CELL DISTRIBUTION WIDTH 16.4 % (11.6-14.8); WHITE BLOOD COUNT 9.4 K/UL (4.8-10.8)
[2016-10-21 07:25] LABS: ANION GAP 13 (5-15); CALCIUM 10.7 mg/dL (8.6-10.2); CARBON DIOXIDE 25 mEQ/L (20-30); CHLORIDE 104 mEQ/L (98-107); HEMOLYSIS 9; POTASSIUM 3.8 mEQ/L (3.4-4.9); SODIUM 142 mEQ/L (135-145)
--- NOTE | 2016-10-21 08:33 | Cardiac Electrophysiology PN ---
Assessment/Plan Assessment/Plan 1. Atypical chest pain. The patient was ruled out for myocardial infarction. EKG is not interpretable as she is ventricularly paced. The patient does not have any further chest pain. Continue medical treatment with metoprolol 50 mg b.i.d. 2D echo 10/05/16 showed EF 65-70% 2. She also has Biotronik pacemaker implantation , will be reinterrogated today. 4. Atrial fibrillation, rate is currently controlled and is actually mostly ventricular paced. Continue metoprolol 50 mg b.i.d. Off anticoagulation for severe bleeding. 5. Hypertension, on metoprolol 50 mg b.i.d., Norvasc 5 mg, and Lasix 20 mg daily. 6. Hyperlipidemia, on Pravachol. 7. Chronic kidney disease. 8. Iron-deficiency anemia. The patient had esophagogastroduodenoscopy and colonoscopy in October 2015.Follow up with Dr Ginger TRAN RN Subjective Subjective Comfortable in NAD. Laying flat in bed. Fib with V pacing.RN at bedside. Objective Last 24 Hour Vital Signs Date Time Temp Pulse Resp B/P Pulse Ox O2 Delivery O2 Flow Rate FiO2 10/21/16 04:15 97.3 71 20 137/84 94 Room Air 10/21/16 04:07 71 10/21/16 00:39 97.0 71 20 113/62 95 10/21/16 00:04 72 10/20/16 20:00 73 10/20/16 20:00 77 18 138/77 96 Room Air 10/20/16 17:53 162/98 10/20/16 16:00 97.9 74 18 153/103 99 Room Air 10/20/16 16:00 68 10/20/16 12:01 97.5 81 20 166/111 96 Room Air 10/20/16 09:26 96 164/99 10/20/16 09:24 96 164/99 Intake and Output 10/20/16 10/21/16 19:00 07:00 Intake Total 240 ml Balance 240 ml Intake Oral 240 ml # Voids 2 1 Laboratory Tests Test 10/21/16 05:50 White Blood Count 9.4 K/UL (4.8-10.8) Red Blood Count 4.14 M/UL (4.20-5.40) L Hemoglobin 12.4 G/DL (12.0-16.0) Hematocrit 38.8 % (37.0-47.0) Mean Corpuscular Volume 94 FL (80-99) Mean Corpuscular Hemoglobin 30.0 PG (27.0-31.0) Mean Corpuscular Hemoglobin Concent 32.0 G/DL (32.0-36.0) Red Cell Distribution Width 16.4 % (11.6-14.8) H Platelet Count 316 K/UL (150-450) Mean Platelet Volume 6.1 FL (6.5-10.1) L Neutrophils (%) (Auto) 71.0 % (45.0-75.0) Lymphocytes (%) (Auto) 18.3 % (20.0-45.0) L Monocytes (%) (Auto) 6.9 % (1.0-10.0) Eosinophils (%) (Auto) 1.9 % (0.0-3.0) Basophils (%) (Auto) 1.9 % (0.0-2.0) Sodium Level 142 mEQ/L (135-145) Potassium Level 3.8 mEQ/L (3.4-4.9) Chloride Level 104 mEQ/L (98-107) Carbon Dioxide Level 25 mEQ/L (20-30) Anion Gap 13 (5-15) Blood Urea Nitrogen 13 mg/dL (7-23) Creatinine 1.0 mg/dL (0.5-0.9) H Estimat Glomerular Filtration Rate mL/min (>60) Glucose Level 92 mg/dL (74-106) Calcium Level 10.7 mg/dL (8.6-10.2) H Microbiology Date/Time Source Procedure Growth Status 10/19/16 00:15 Rectum VRE Culture - Final Enterococcus Faecalis - Vre Complete Objective NECK: Mild JVD. LUNGS: Decreased breath sounds. CARDIOVASCULAR: Irregular S1 and S2 with a 2/6 systolic murmur, pacer subclavian area. ABDOMEN: Soft. EXTREMITIES: 1+ pitting edema. STAR ROA Oct 21, 2016 08:33
[2016-10-21] MEDS: Sensipar 30mg Tab ORAL SCH (10:07)
[2016-10-21] MEDS: Docusate 100mg cap ORAL SCH ×3 (10:07→18:00)
--- NOTE | 2016-10-21 10:46 | GI Progress Note ---
Assessment/Plan Problems: (1) Anemia ICD Codes: D64.9 - Anemia, unspecified SNOMED: 090516539 (2) Iron deficiency ICD Codes: E61.1 - Iron deficiency SNOMED: 22646010 (3) Hypoalbuminemia ICD Codes: E88.09 - Other disorders of plasma-protein metabolism, not elsewhere classified SNOMED: 984449968 Status: stable Status Narrative Discussed with Dr. Miles. Assessment/Plan ok dc per GI standpoint patient had EGD/colonoscopy last year 10/31. See full report below. pt scheduled for outpatient capsule endoscopy to evaluate anemia. monitor H&H >> transfused prn PPI daily given history of severe gastritis adv diet iron deficient >> venofer bowel regime okay to cont all cardiac medications fu labs Subjective Gastrointestinal/Abdominal: Reports: no symptoms Objective Last 24 Hour Vital Signs Date Time Temp Pulse Resp B/P Pulse Ox O2 Delivery O2 Flow Rate FiO2 10/21/16 08:45 97.7 94 18 136/80 95 Room Air 10/21/16 04:15 97.3 71 20 137/84 94 Room Air 10/21/16 04:07 71 10/21/16 00:39 97.0 71 20 113/62 95 10/21/16 00:04 72 10/20/16 20:00 73 10/20/16 20:00 77 18 138/77 96 Room Air 10/20/16 17:53 162/98 10/20/16 16:00 97.9 74 18 153/103 99 Room Air 10/20/16 16:00 68 10/20/16 12:01 97.5 81 20 166/111 96 Room Air Intake and Output 10/20/16 10/21/16 19:00 07:00 Intake Total 240 ml Balance 240 ml Intake Oral 240 ml # Voids 2 1 Laboratory Tests Test 10/21/16 05:50 White Blood Count 9.4 K/UL (4.8-10.8) Red Blood Count 4.14 M/UL (4.20-5.40) L Hemoglobin 12.4 G/DL (12.0-16.0) Hematocrit 38.8 % (37.0-47.0) Mean Corpuscular Volume 94 FL (80-99) Mean Corpuscular Hemoglobin 30.0 PG (27.0-31.0) Mean Corpuscular Hemoglobin Concent 32.0 G/DL (32.0-36.0) Red Cell Distribution Width 16.4 % (11.6-14.8) H Platelet Count 316 K/UL (150-450) Mean Platelet Volume 6.1 FL (6.5-10.1) L Neutrophils (%) (Auto) 71.0 % (45.0-75.0) Lymphocytes (%) (Auto) 18.3 % (20.0-45.0) L Monocytes (%) (Auto) 6.9 % (1.0-10.0) Eosinophils (%) (Auto) 1.9 % (0.0-3.0) Basophils (%) (Auto) 1.9 % (0.0-2.0) Sodium Level 142 mEQ/L (135-145) Potassium Level 3.8 mEQ/L (3.4-4.9) Chloride Level 104 mEQ/L (98-107) Carbon Dioxide Level 25 mEQ/L (20-30) Anion Gap 13 (5-15) Blood Urea Nitrogen 13 mg/dL (7-23) Creatinine 1.0 mg/dL (0.5-0.9) H Estimat Glomerular Filtration Rate mL/min (>60) Glucose Level 92 mg/dL (74-106) Calcium Level 10.7 mg/dL (8.6-10.2) H Height (Feet): 5 Height (Inches): 4.00 Weight (Pounds): 126 General Appearance: no apparent distress, alert, thin Cardiovascular: normal rate Abdominal Exam: normal bowel sounds, non tender, soft Objective DATE OF PROCEDURE: 10/23/2015 SURGEON: Ruben Miles M.D. ANESTHESIOLOGIST: Rolando Anaya M.D. PROCEDURE: Upper endoscopy with biopsy and colonoscopy with biopsy and polypectomy. INDICATION: Anemia, screening colonoscopy evaluation, abdominal pain, and GERD. SUMMARY OF FINDINGS: 1. Severe gastritis, status post biopsy. 2. Duodenal polyp, status post biopsy. 3. Inflammatory looking polyp in the antrum of the stomach, status post biopsy. 4. Paraesophageal hernia. 5. Two colonic polyp removed, see above for details. 6. Diverticulosis. 7. Internal hemorrhoids. RECOMMENDATIONS: Follow up biopsy results and treat accordingly. Lyndsay Torres N.P. Oct 21, 2016 10:46
[2016-10-21] MEDS ORDERED: cloNIDine 0.2mg Tab ORAL PRN (11:00)
--- NOTE | 2016-10-21 15:23 | Discharge Summary ---
Discharge Summary Hospital Course Date of Admission Oct 18, 2016 at 22:52 Date of Discharge Admitting Diagnosis CHEST PAIN HPI Iman Michaud is a 86 year old female who was admitted on Oct 18, 2016 at 22:52 for Chest Pain Hospital Course The patient was seen and examined at bedside and all new and available data was reviewed in the patients chart. Last 24 Hour Vital Signs Date Time Temp Pulse Resp B/P Pulse Ox O2 Delivery O2 Flow Rate FiO2 10/21/16 12:00 98.1 66 18 123/66 97 Room Air 10/21/16 09:00 94 136/80 10/21/16 08:45 97.7 94 18 136/80 95 Room Air 10/21/16 04:15 97.3 71 20 137/84 94 Room Air 10/21/16 04:07 71 10/21/16 00:39 97.0 71 20 113/62 95 10/21/16 00:04 72 10/20/16 20:00 73 10/20/16 20:00 77 18 138/77 96 Room Air 10/20/16 17:53 162/98 10/20/16 16:00 97.9 74 18 153/103 99 Room Air 10/20/16 16:00 68 GENERAL: The patient is well developed and well nourished, thin appearing female, in no apparent distress. HEENT: Eyes, pupils are equal and responsive to light and accommodation. Extraocular moves are intact. NECK: Supple without lymphadenopathy. CHEST: Lungs are clear to auscultation bilaterally, No wheezes CARDIOVASCULAR: Irregular rhythm and rate. S1 and S2 normal without murmurs, + PPM @ LCW ABDOMEN: Soft, nontender, and nondistended. Positive bowel sounds. EXTREMITIES: Negative for clubbing, cyanosis, or edema. RECTAL: Refused. GENITAL: Refused. NEUROLOGIC: Cranial nerves II through XII are grossly intact without focal deficits. Motor strength is 5/5 bilaterally. Assessment: 1. Atypical Chest pain. 2. History of anemia. 3. Hypertension. 4. Diabetes type 2. 5. History of coronary artery disease. 6. Renal failure. 7. Paroxysmal atrial fibrillation. 8. History of right lower extremity deep venous thrombosis. 9. Arthritis. 10. Alzheimer's dementia. 11. Pacemaker in situ. Plan: patient had EGD/colonoscopy last year 10/31. pt scheduled for outpatient capsule endoscopy to evaluate anemia next Monday. Discuss with daughter over the phone. DC Home today with HH. (Patient was seen earlier today. Signature timestamp does not reflect patient encounter time) Titi Cruz MD Discharge Discharge Disposition Patient was discharged to Discharge Diagnoses: Titi Cruz MD Oct 21, 2016 15:23
[2016-10-21] MEDS: Miralax 17gm pkt ORAL SCH (21:00)
[2016-10-21] MEDS: Metoprolol 25mg tab ORAL SCH (22:11)
[2016-10-22 04:00] VITALS: BP 125/75
[2016-10-22 08:00] VITALS: BP 132/75
[2016-10-22] MEDS: Metoprolol 25mg tab ORAL SCH (08:42)
[2016-10-22] MEDS: Docusate 100mg cap ORAL SCH ×2 (08:42→13:00)
[2016-10-22] MEDS: Sensipar 30mg Tab ORAL SCH (08:42)
[2016-10-22 08:48] LABS: BASOPHILS % (AUTO) 1.3 % (0.0-2.0); EOSINOPHILS % (AUTO) 0.6 % (0.0-3.0); MEAN CORPUSCULAR HEMOGLOBIN 30.3 PG (27.0-31.0); MEAN CORPUSCULAR HGB CONC 33.8 G/DL (32.0-36.0); MEAN CORPUSCULAR VOLUME 90 FL (80-99); MEAN PLATELET VOLUME 6.3 FL (6.5-10.1); MONOCYTES % (AUTO) 8.9 % (1.0-10.0); NEUTROPHILS % (AUTO) 70.3 % (45.0-75.0); PLATELET COUNT 327 K/UL (150-450); RED BLOOD COUNT 3.93 M/UL (4.20-5.40); RED CELL DISTRIBUTION WIDTH 16.1 % (11.6-14.8); WHITE BLOOD COUNT 8.9 K/UL (4.8-10.8)
[2016-10-22 08:55] LABS: ANION GAP 14 (5-15); CALCIUM 10.2 mg/dL (8.6-10.2); CARBON DIOXIDE 26 mEQ/L (20-30); CHLORIDE 101 mEQ/L (98-107); CREATININE 1.1 mg/dL (0.5-0.9); HEMOLYSIS 6; POTASSIUM 3.7 mEQ/L (3.4-4.9); SODIUM 141 mEQ/L (135-145)
--- NOTE | 2016-10-22 11:47 | Cardiac Electrophysiology PN ---
Assessment/Plan Assessment/Plan 1. Atypical chest pain. Ruled out for myocardial infarction. EKG is ventricularly paced. The patient does not have any further chest pain. Continue metoprolol 50 mg b.i.d. 2D echo 10/05/16 showed EF 65-70% 2.S/P Biotronik single chamber pacemaker that was reinterrogated and showed normal function. 4. Chronic Atrial fibrillation, rate is controlled and is ventricular paced. Continue metoprolol 50 mg b.i.d. Off anticoagulation for severe bleeding. 5. Hypertension, on metoprolol 50 mg b.i.d.and Lasix 20 mg daily.Off Norvasc 6. Hyperlipidemia, on Pravachol. 7. Chronic kidney disease. 8. Iron-deficiency anemia. The patient had esophagogastroduodenoscopy and colonoscopy in October 2015.Follow up with Dr Ginger TRAN RN Subjective Subjective Comfortable in NAD in Fib with V pacing.RN and family at bedside. Objective Last 24 Hour Vital Signs Date Time Temp Pulse Resp B/P Pulse Ox O2 Delivery O2 Flow Rate FiO2 10/22/16 08:42 66 125/75 10/22/16 08:00 68 10/22/16 08:00 96.8 67 20 132/75 98 Room Air 10/22/16 04:00 98.1 66 19 125/75 95 Room Air 10/22/16 03:53 66 10/21/16 23:53 67 10/21/16 23:45 98.2 62 18 129/77 97 Room Air 10/21/16 22:11 77 137/84 10/21/16 20:11 98.2 77 15 145/84 94 Room Air 10/21/16 20:00 65 10/21/16 16:00 98.1 65 12 144/83 97 Room Air 10/21/16 16:00 66 10/21/16 12:00 98.1 66 18 123/66 97 Room Air Intake and Output 10/21/16 10/22/16 19:00 07:00 Intake Total 240 ml 100 ml Balance 240 ml 100 ml Intake Oral 240 ml 100 ml # Voids 1 3 Laboratory Tests Test 10/22/16 07:20 White Blood Count 8.9 K/UL (4.8-10.8) Red Blood Count 3.93 M/UL (4.20-5.40) L Hemoglobin 11.9 G/DL (12.0-16.0) L Hematocrit 35.2 % (37.0-47.0) L Mean Corpuscular Volume 90 FL (80-99) Mean Corpuscular Hemoglobin 30.3 PG (27.0-31.0) Mean Corpuscular Hemoglobin Concent 33.8 G/DL (32.0-36.0) Red Cell Distribution Width 16.1 % (11.6-14.8) H Platelet Count 327 K/UL (150-450) Mean Platelet Volume 6.3 FL (6.5-10.1) L Neutrophils (%) (Auto) 70.3 % (45.0-75.0) Lymphocytes (%) (Auto) 19.0 % (20.0-45.0) L Monocytes (%) (Auto) 8.9 % (1.0-10.0) Eosinophils (%) (Auto) 0.6 % (0.0-3.0) Basophils (%) (Auto) 1.3 % (0.0-2.0) Sodium Level 141 mEQ/L (135-145) Potassium Level 3.7 mEQ/L (3.4-4.9) Chloride Level 101 mEQ/L (98-107) Carbon Dioxide Level 26 mEQ/L (20-30) Anion Gap 14 (5-15) Blood Urea Nitrogen 16 mg/dL (7-23) Creatinine 1.1 mg/dL (0.5-0.9) H Estimat Glomerular Filtration Rate mL/min (>60) Glucose Level 104 mg/dL (74-106) Calcium Level 10.2 mg/dL (8.6-10.2) Objective NECK: Mild JVD. LUNGS: Decreased breath sounds. CARDIOVASCULAR: Regular S1 and S2 with a 2/6 systolic murmur, pacer left subclavian area. ABDOMEN: Soft. EXTREMITIES: 1+ pitting edema. STAR ROA Oct 22, 2016 11:47
[2016-10-22 12:00] VITALS: BP 144/65
--- NOTE | 2016-10-22 13:40 | Internal Med Progress Note ---
Subjective Date of Service: Oct 22, 2016 Physician Name Bradley Davis Attending Physician Titi Cruz MD Current Medications Medications (Trade) Dose Ordered Sig/David Route PRN Reason Start Time Stop Time Status Last Admin Dose Admin Acetaminophen (Tylenol) 650 mg Q4H PRN ORAL Fever/Headache/Mild Pain 10/21/16 22:00 11/20/16 21:59 Cinacalcet (Sensipar) 30 mg DAILY ORAL 10/19/16 09:00 11/18/16 08:59 10/22/16 08:42 Clonidine HCl (Catapres) 0.1 mg Q6HR PRN ORAL For High Blood Pressure 10/20/16 17:15 11/19/16 17:14 10/20/16 17:53 Clonidine HCl (Catapres) 0.2 mg EVERY 2 HOURS PRN ORAL SBP>170 10/21/16 11:00 11/20/16 10:59 Docusate Sodium (Colace) 100 mg THREE TIMES A DAY ORAL 10/19/16 18:00 11/18/16 17:59 10/22/16 08:42 Furosemide (Lasix) 20 mg DAILY ORAL 10/19/16 09:00 11/18/16 08:59 10/22/16 08:43 Metoprolol Tartrate (Lopressor) 50 mg Q12HR ORAL 10/22/16 21:00 11/21/16 20:59 Mirtazapine (Remeron) 15 mg BEDTIME ORAL 10/19/16 21:00 11/18/16 20:59 10/19/16 20:57 Pantoprazole (Protonix) 40 mg DAILY ORAL 10/21/16 09:00 11/20/16 08:59 10/22/16 08:42 Polyethylene Glycol (Miralax) 17 gm BEDTIME ORAL 10/19/16 21:00 11/18/16 20:59 10/19/16 20:57 Pravastatin Sodium (Pravachol) 40 mg BEDTIME ORAL 10/19/16 21:00 11/18/16 20:59 10/19/16 20:56 Allergies: Coded Allergies: NO KNOWN ALLERGIES (Unverified Allergy, Unknown, 09/05/15) ROS Limited/Unobtainable: No Constitutional: Reports: no symptoms HEENT: Reports: no symptoms Cardiovascular: Reports: no symptoms Respiratory: Reports: no symptoms Gastrointestinal/Abdominal: Reports: no symptoms Genitourinary: Reports: no symptoms Neurologic/Psychiatric: Reports: no symptoms Subjective 86 YO AA F admited with Chest pain. Cover for Int Med-Dr Cruz. Await discharge home today Objective Last Vital Signs Date Time Temp Pulse Resp B/P Pulse Ox O2 Delivery O2 Flow Rate FiO2 10/22/16 12:00 97.3 70 20 144/65 99 Room Air Laboratory Tests Test 10/22/16 07:20 White Blood Count 8.9 K/UL (4.8-10.8) Red Blood Count 3.93 M/UL (4.20-5.40) L Hemoglobin 11.9 G/DL (12.0-16.0) L Hematocrit 35.2 % (37.0-47.0) L Mean Corpuscular Volume 90 FL (80-99) Mean Corpuscular Hemoglobin 30.3 PG (27.0-31.0) Mean Corpuscular Hemoglobin Concent 33.8 G/DL (32.0-36.0) Red Cell Distribution Width 16.1 % (11.6-14.8) H Platelet Count 327 K/UL (150-450) Mean Platelet Volume 6.3 FL (6.5-10.1) L Neutrophils (%) (Auto) 70.3 % (45.0-75.0) Lymphocytes (%) (Auto) 19.0 % (20.0-45.0) L Monocytes (%) (Auto) 8.9 % (1.0-10.0) Eosinophils (%) (Auto) 0.6 % (0.0-3.0) Basophils (%) (Auto) 1.3 % (0.0-2.0) Sodium Level 141 mEQ/L (135-145) Potassium Level 3.7 mEQ/L (3.4-4.9) Chloride Level 101 mEQ/L (98-107) Carbon Dioxide Level 26 mEQ/L (20-30) Anion Gap 14 (5-15) Blood Urea Nitrogen 16 mg/dL (7-23) Creatinine 1.1 mg/dL (0.5-0.9) H Estimat Glomerular Filtration Rate mL/min (>60) Glucose Level 104 mg/dL (74-106) Calcium Level 10.2 mg/dL (8.6-10.2) Intake and Output 1/6/17 1/7/17 19:00 07:00 Intake Total 240 ml 100 ml Balance 240 ml 100 ml Intake Oral 240 ml 100 ml # Voids 1 3 Objective General Appearance: mild distress, thin EENT: PERRL/EOMI, normal ENT inspection Neck: non-tender, normal alignment, supple Cardiovascular: normal peripheral pulses, normal rate, no gallop/murmur, no JVD , irregularly irregular Respiratory/Chest: chest wall non-tender, lungs clear, normal breath sounds, no respiratory distress, no accessory muscle use Abdomen: normal bowel sounds, non tender, soft, no organomegaly, no mass Extremities: normal range of motion, non-tender Neurologic: sail finisher 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 (3) Diabetes mellitus (4) Atrial fibrillation Assessment & Plan: See cardiology note. (5) CAD (coronary artery disease) (6) Hypercholesteremia Assessment & Plan: Cont pravachol. (7) Renal failure (8) History of DVT (deep vein thrombosis) Assessment & Plan: Hold xarelto due to history of GI bleed (9) Alzheimer's dementia (10) Pacemaker Assessment/Plan Discharge home today with [facility] BRADLEY DAVIS Oct 22, 2016 13:40
[2016-10-22] MEDS ORDERED: Metoprolol 25mg tab ORAL SCH (21:00)
--- NOTE | 2016-10-23 10:32 | Diagnostic Imaging Report ---
Indication: PAIN Technique: One view of the chest Comparison: Of 2015 Findings: Left chest unifocal pacemaker is again demonstrated. Retrocardiac opacity is again demonstrated, consistent with a hiatal hernia. No definite acute infiltrates, effusions or congestion. There are some atelectatic change in the left perihilar region. The heart size is normal. Aorta is tortuous and calcified. Impression: No definite acute process. Findings as noted This agrees with the preliminary interpretation provided by the emergency room physician
== END 2016-10-22 13:30 | disposition home health service (06) | DRG 313 ==
LOC: EDBD 21:53 → EMR 22:30 → 2E 22:52 → EDBEDREQ 23:49 → 2E 10-19 21:56
DX: R07.89 Other chest pain (principal); I25.2 Old myocardial infarction; N17.9 Acute kidney failure, unspecified; E88.09 Other disorders of plasma-protein metabolism, not elsewhere classified; L89.313 Pressure ulcer of right buttock, stage 3; L89.323 Pressure ulcer of left buttock, stage 3; E11.9 Type 2 diabetes mellitus without complications; I12.9 Hypertensive chronic kidney disease with stage 1 through stage 4 chronic kidney disease, or unspecified chronic kidney disease; D50.9 Iron deficiency anemia, unspecified; G30.9 Alzheimer's disease, unspecified; L89.529 Pressure ulcer of left ankle, unspecified stage; F02.80 Dementia in other diseases classified elsewhere, unspecified severity, without behavioral disturbance, psychotic disturbance, mood disturbance, and anxiety; M19.90 Unspecified osteoarthritis, unspecified site; Z95.0 Presence of cardiac pacemaker; I25.10 Atherosclerotic heart disease of native coronary artery without angina pectoris; Z86.718 Personal history of other venous thrombosis and embolism; I48.0 Paroxysmal atrial fibrillation; I73.9 Peripheral vascular disease, unspecified; Z79.01 Long term (current) use of anticoagulants; N18.9 Chronic kidney disease, unspecified; E78.5 Hyperlipidemia, unspecified
CPT/HCPCS: 36415; 71010; 80048; 80053; 82550; 82553; 83540; 83550; 83735; 84100; 84484; 85025; 85610; 85730; 87081; 93005

== ENCOUNTER 2016-12-12 15:39 | Inpatient (IN) | payer MEDICARE, BC ==
[~2016-12-12] VITALS: Ht 160 cm; Wt 63.5 kg
[~2016-12-12 15:39] MED LIST changes: +UNOBMED; +Zosyn 3.375gm inj ONE
[2016-12-12 16:26] VITALS: BP 154/88
[2016-12-12 16:30] LABS: MEAN CORPUSCULAR HEMOGLOBIN 28.7 PG (27.0-31.0); MEAN CORPUSCULAR HGB CONC 34.1 G/DL (32.0-36.0); MEAN CORPUSCULAR VOLUME 84 FL (80-99); MEAN PLATELET VOLUME 6.9 FL (6.5-10.1); PLATELET COUNT 309 K/UL (150-450); RED BLOOD COUNT 3.63 M/UL (4.20-5.40); RED CELL DISTRIBUTION WIDTH 18.4 % (11.6-14.8)
[2016-12-12 16:42] LABS: WHITE BLOOD COUNT 29.5 K/UL (4.8-10.8)
[2016-12-12] MEDS ORDERED: Piperacillin/Tazobactam 3.375 GM in NS 110 ML IVPB ONE (16:45)
[2016-12-12 16:48] LABS: INR 1.4 (0.9-1.1); PROTHROMBIN TIME 13.9 SEC (9.30-11.50)
--- NOTE | 2016-12-12 16:51 | Diagnostic Imaging Report ---
Indications: Altered mental status Technique: Continuous helical CT imaging of the brain was performed with nonionic exposure control on a Siemens sensation [address] scanner. Axial and coronal images were reconstructed at 5 mm slice thickness and interval. CTDI volume(s): 70 mGy Total DLP: 1474 mGy-cm Findings: Comparison: 09/30/16 Extensive chronic microvascular ischemic changes throughout the bilateral cerebral periventricular and deep white matter, moderate diffuse atrophy unchanged. No evidence of mass or hemorrhage, mass effect, midline shift, hydrocephalus, or increased intracranial pressure. Bone window images are unremarkable. Visualized paranasal sinuses and mastoid air cells are clear. IMPRESSION: No evidence of acute intracranial pathology , unchanged. Stable chronic changes as described. The CT scanner at [facility] is accredited by the [employer] and the scans are performed using protocols designed to limit radiation exposure to as low as reasonably achievable to attain images of sufficient resolution adequate for diagnostic evaluation.
[2016-12-12 17:04] LABS: ALANINE AMINOTRANSFERASE 37 U/L (3-33); ALBUMIN/GLOBULIN RATIO 0.5 (1.0-2.7); ANION GAP 15 (5-15); ASPARTATE AMINO TRANSFERASE 45 U/L (5-40); CARBON DIOXIDE 26 mEQ/L (20-30); CHLORIDE 110 mEQ/L (98-107); CREATININE 1.2 mg/dL (0.5-0.9); HEMOLYSIS 69; LIPASE 20 U/L (< 60); POTASSIUM 3.5 mEQ/L (3.4-4.9); SODIUM 151 mEQ/L (135-145); TROPONIN I < 0.30 ng/mL (<=0.30)
[2016-12-12 17:05] LABS: ABG ALLEN TEST POSITIVE; ABG BASE EXCESS 1.5; ABG PCO2 34.3 mmHg (35.0-45.0)
[2016-12-12 17:06] LABS: REFLEX LACTIC ACID YES OR NO YES
[2016-12-12 17:14] LABS: CKMB < 1.5 ng/mL (< 3.8)
[2016-12-12 17:17] LABS: CALCIUM 13.7 mg/dL (8.6-10.2)
[2016-12-12 17:24] LABS: ANISOCYTOSIS 1+; BAND NEUTROPHILS % (MANUAL) 6 % (0-8); HYPOCHROMASIA 2+; LYMPHOCYTES % (MANUAL) 6 % (20-45); NEUTROPHILS % (MANUAL) 84 % (45-75); PLATELET MORPHOLOGY NORMAL; TARGET CELLS 1+; TOTAL CELLS COUNTED 100
[2016-12-12 17:25] LABS: BASOPHILS % (MANUAL) 0 % (0-2); EOSINOPHILS % (MANUAL) 0 % (0-3); PLATELET ESTIMATE ADEQUATE; POLYCHROMASIA 1+
[2016-12-12] MEDS ORDERED: Miralax 17gm pkt ORAL PRN (17:45)
[2016-12-12] MEDS ORDERED: Morphine Sulfate 2mg/ml Inj IVP PRN (17:45)
[2016-12-12] MEDS ORDERED: DuoNeb 0.5-3(2.5)mg/3ml neb HHN PRN (17:45)
[2016-12-12] MEDS ORDERED: Nitroglycerin Subl 0.4mg tab (Bottle Of 25) SL PRN (17:45)
--- NOTE | 2016-12-12 17:54 | Consultation ---
Consult Note Consult Note asked to evaluate for hypercalcemia and renal failure- Chief Complaint: Altered Mental Status Patient presents by paramedics for acute change in mental status Patient's son arrives as well and provide some input Patient herself is nonverbal and cannot provide any input The son reports that they were feeding the patient she had an acute episode where her hands were shaking patient appeared to be less responsive than previous There was no reports of vomiting or diarrhea Patient has been eating less than usual recently the family denies any obvious fevers or fall Hx Hypertension: Yes Hx Pacemaker: Yes Hx Dementia: Yes Hx Weakness: Yes PH: -History of anemia. -Hypertension. -Diabetes type 2. -History of coronary artery disease. -Renal failure. -Paroxysmal atrial fibrillation. -History of right lower extremity deep venous thrombosis. -Arthritis. -Alzheimer's dementia. -Pacemaker in situ. O/E appears dehydrated Assessment/Plan status: Acute renal failure- mainly prerenal HyperCalcemia- Leukocytosis / sepsis other conditions mentioned in PH Plan: Hydrate- Randolph- Monitor renal parameters- EARNEST CADET Dec 12, 2016 17:54
--- NOTE | 2016-12-12 18:24 | Emergency Room Report ---
History of Present Illness General Chief Complaint: Altered Mental Status Source: Family Member, EMS Present Illness HPI Patient presents by paramedics for acute change in mental status Patient's son arrives as well and provide some input Patient herself is nonverbal and cannot provide any input The son reports that they were feeding the patient she had an acute episode where her hands were shaking patient appeared to be less responsive than previous There was no reports of vomiting or diarrhea Patient has been eating less than usual recently the family denies any obvious fevers or fall Allergies: Coded Allergies: NO KNOWN ALLERGIES (Unverified Allergy, Unknown, 09/05/15) Patient History Past Medical History: see triage record Pertinent Family History: none Reviewed Nursing Documentation: PMH: Agreed, PSxH: Agreed Nursing Documentation-PMH Hx Hypertension: Yes Hx Pacemaker: Yes Hx Asthma: No Hx COPD: No Hx Diabetes: No Hx Cancer: No Hx Gastrointestinal Problems: No Hx Dialysis: No Hx Neurological Problems: No Hx Cerebrovascular Accident: No Hx Dementia: Yes Hx Seizures: No Hx Dizziness: Yes - 03/21/16 Hx Weakness: Yes Review of Systems All Other Systems: limited - Other than the ones mentioned in the history of present illness all others are reviewed however they do stay limited due to the patient's mental status Physical Exam Vital Signs Date Time Temp Pulse Resp B/P Pulse Ox O2 Delivery O2 Flow Rate FiO2 12/12/16 15:37 98.1 83 16 118/60 95 Room Air Sp02 EP Interpretation: reviewed, normal General Appearance: mild distress - Patient appears ill, decrease GCS Head: normocephalic, atraumatic Eyes: bilateral eye PERRL ENT: dry mucus membranes Neck: supple, thyroid normal Respiratory: crackles - Diffusely in both lower lobes, no obvious retractions, there is a gag reflex appreciated Cardiovascular #1: regular rate, rhythm, no edema Gastrointestinal: non tender, soft Musculoskeletal: other - Patient does not follow commands, does withdraw from physical stimuli however Neurologic: responsive - to physical stimuli Skin: other - Deep sacral decubitus ulcer Lymphatic: no adenopathy Procedures Critical Care Time Critical Care Time 50 minutes for critical condition Multiple critical findings, reevaluations Not including any procedural time Medical Decision Making Diagnostic Impression: Primary Impression: Severe sepsis Additional Impressions: Decubital ulcer Hypercalcemia ER Course Patient appears ill Decreased responsiveness Multiple differentials including CVA, sepsis, electrolyte abnormality considered Patient's CT does not reveal any acute disease Patient has a very high white blood cell count Calcium is elevated and ionized calcium was added for inpatient test and patient was provided broad-spectrum antibiotics Sepsis protocol initiated And patient admitted for further care in critical condition Labs Test 12/12/16 16:06 12/12/16 17:00 White Blood Count 29.5 K/UL (4.8-10.8) Red Blood Count 3.63 M/UL (4.20-5.40) Hemoglobin 10.4 G/DL (12.0-16.0) Hematocrit 30.5 % (37.0-47.0) Mean Corpuscular Volume 84 FL (80-99) Mean Corpuscular Hemoglobin 28.7 PG (27.0-31.0) Mean Corpuscular Hemoglobin Concent 34.1 G/DL (32.0-36.0) Red Cell Distribution Width 18.4 % (11.6-14.8) Platelet Count 309 K/UL (150-450) Mean Platelet Volume 6.9 FL (6.5-10.1) Neutrophils (%) (Auto) % (45.0-75.0) Lymphocytes (%) (Auto) % (20.0-45.0) Monocytes (%) (Auto) % (1.0-10.0) Eosinophils (%) (Auto) % (0.0-3.0) Basophils (%) (Auto) % (0.0-2.0) Differential Total Cells Counted 100 Neutrophils % (Manual) 84 % (45-75) Lymphocytes % (Manual) 6 % (20-45) Monocytes % (Manual) 4 % (1-10) Eosinophils % (Manual) 0 % (0-3) Basophils % (Manual) 0 % (0-2) Band Neutrophils 6 % (0-8) Platelet Estimate Adequate Platelet Morphology Normal Polychromasia 1+ Hypochromasia 2+ Anisocytosis 1+ Target Cells 1+ Prothrombin Time 13.9 SEC (9.30-11.50) Prothromb Time International Ratio 1.4 (0.9-1.1) Activated Partial Thromboplast Time 24 SEC (23-33) Sodium Level 151 mEQ/L (135-145) Potassium Level 3.5 mEQ/L (3.4-4.9) Chloride Level 110 mEQ/L (98-107) Carbon Dioxide Level 26 mEQ/L (20-30) Anion Gap 15 (5-15) Blood Urea Nitrogen 45 mg/dL (7-23) Creatinine 1.2 mg/dL (0.5-0.9) Estimat Glomerular Filtration Rate mL/min (>60) Glucose Level 107 mg/dL (74-106) Lactic Acid Level 2.20 mmol/L (0.66-2.22) Calcium Level 13.7 mg/dL (8.6-10.2) Total Bilirubin 1.0 mg/dL (0.0-1.2) Aspartate Amino Transf (AST/SGOT) 45 U/L (5-40) Alanine Aminotransferase (ALT/SGPT) 37 U/L (3-33) Alkaline Phosphatase 179 U/L (35-104) Total Creatine Kinase 51 U/L (26-140) Creatine Kinase MB < 1.5 ng/mL (< 3.8) Creatine Kinase MB Relative Index 2.9 Troponin I < 0.30 ng/mL (<=0.30) Pro-B-Type Natriuretic Peptide 50998 pg/mL (0-450) Total Protein 6.0 g/dL (6.6-8.7) Albumin 2.2 g/dL (3.5-5.2) Globulin 3.8 g/dL Albumin/Globulin Ratio 0.5 (1.0-2.7) Lipase 20 U/L (< 60) Arterial Blood pH 7.470 (7.350-7.450) Arterial Blood Partial Pressure CO2 34.3 mmHg (35.0-45.0) Arterial Blood Partial Pressure O2 84.3 mmHg (75.0-100.0) Arterial Blood HCO3 24.8 mmol/L (22.0-26.0) Arterial Blood Oxygen Saturation 95.4 % (92.0-98.0) Arterial Blood Base Excess 1.5 Yash Test Positive Rhythm Strip Diag. Results EP Interpretation: yes Rate: 99 Rhythm: NSR, no PVC's, no ectopy Chest X-Ray Diagnostic Results EP Interpretation: Yes Findings: no consolidation, no effusion, no pneumothorax Number of Views: 1 CT/MRI/US Diagnostic Results CT/MRI/US Diagnostic Results : Impression CT head no acute disease Last Vital Signs Date Time Temp Pulse Resp B/P Pulse Ox O2 Delivery O2 Flow Rate FiO2 12/12/16 16:26 99.0 76 21 154/88 94 Room Air Status: improved Disposition: ADMITTED INPATIENT Condition: Critical Referrals: Titi Cruz MD (PCP) CHRISTINA CHAVEZ D.O. Dec 12, 2016 18:24
[2016-12-12 18:47] VITALS: BP 160/89
[2016-12-12 18:55] LABS: KETONES,URINE NEGATIVE (NEGATIVE); LEUKOCYTE ESTERASE ,URINE 3+ (NEGATIVE); NITRITE,URINE NEGATIVE (NEGATIVE); PH,URINE 5 (4.5-8.0); PROTEIN,URINE 2+ (NEGATIVE); UROBILINOGEN,URINE 4 MG/DL (0.0-1.0)
[2016-12-12 19:02] LABS: APPEARANCE,URINE SLIGHTLY CLOUDY
[2016-12-12 19:08] LABS: AMORPHOUS SEDIMENT,UR FEW /LPF; BACTERIA,URINE MANY /HPF; SQUAMOUS EPITHELIAL CELL,UR FEW /LPF (NONE/OCC); WBC,URINE 15-20 /HPF (0 - 2)
[2016-12-12] MEDS: D5 1/2NS 1,000 ML IV SCH (20:02)
[2016-12-12 20:54] VITALS: BP 134/78
[2016-12-12] MEDS: Docusate 100mg cap ORAL SCH (20:54)
[2016-12-12] MEDS ORDERED: Cefepime HCl 2 GM in D5W 110 ML IV SCH (22:00)
[2016-12-12] MEDS: Heparin 5000 units/ml inj SUBQ SCH (22:44)
[2016-12-12 23:14] VITALS: BP 150/70
--- NOTE | 2016-12-12 23:25 | Consultation ---
History of Present Illness General Date patient seen: Dec 12, 2016 Chief Complaint: Altered Mental Status Referring physician: Dr. Holland Reason for Consultation: sepsis Present Illness HPI 86 year of p atient with hx of Dementia, bed bound, pace maker, brought in by paramedics with CC of acute change in mental status Pt apparently stopped eating two days earlier. Family was told by the nurse that she might have an episode of UTI Patient herself is nonverbal and cannot provide any input. The son reports that they were feeding the patient she had an acute episode where her hands were shaking patient appeared to be less responsive than previous. Pt is somnolent and cant' give any history. Allergies: Coded Allergies: NO KNOWN ALLERGIES (Unverified Allergy, Unknown, 09/05/15) Medication History Scheduled Amlodipine Besylate* (Amlodipine Besylate*), 5 MG ORAL DAILY, (Reported) Cinacalcet* (Sensipar*), 30 MG ORAL DAILY, (Reported) Docusate Sodium (Docusate Sodium), 100 MG ORAL TWICE A DAY, (Reported) Esomeprazole Magnesium (Nexium), 40 MG ORAL DAILY, (Reported) Furosemide* (Lasix*), 20 MG ORAL DAILY, (Reported) Lisinopril (Lisinopril*), 20 MG ORAL BID, (Reported) Lisinopril* (Prinivil*), 10 MG ORAL DAILY Metoprolol Tartrate* (Metoprolol Tartrate*), 50 MG ORAL BID, (Reported) Mirtazapine (Mirtazapine), 15 MG ORAL BEDTIME, (Reported) Multivitamin (Daily Ofelia), 1 TAB ORAL DAILY, (Reported) Pravastatin Sod* (Pravastatin Sod*), 40 MG ORAL BEDTIME, (Reported) Ranolazine* (Ranexa*), 500 MG ORAL DAILY, (Reported) Rivaroxaban (Xarelto), 15 MG ORAL DAILY, (Reported) Scheduled PRN Nitroglycerin (Nitrostat), 0.4 MG SL Q5M X3 DOSES PRN for To Patient Comfort, ( Reported) Miscellaneous Medications Unable to Obtain Medications (Unable To Obtain Meds), (Reported) Vit C/Ascorbate Ca/Ascorb Sod (Vitamin C 500 Mg/15 Ml Liquid), 500 MG PO, ( Reported) Patient History Healthcare decision maker Resuscitation status Advanced Directive on File Past Medical/Surgical History Past Medical/Surgical History: (1) Urinary tract infection (2) Hypertension (3) History of DVT (deep vein thrombosis) (4) Atrial flutter (5) Pacemaker Review of Systems All Other Systems: negative except mentioned in HPI Physical Exam General Appearance: cachetic Lines, tubes and drains: peripheral, central line HEENT: normocephalic, atraumatic Neck: non-tender, normal alignment Respiratory/Chest: chest wall non-tender, lungs clear Cardiovascular/Chest: normal peripheral pulses Abdomen: normal bowel sounds Skin Exam: other - sacral Last 24 Hour Vital Signs Date Time Temp Pulse Resp B/P Pulse Ox O2 Delivery O2 Flow Rate FiO2 12/12/16 23:14 97.7 75 18 150/70 95 Room Air 12/12/16 20:56 99.0 71 17 134/78 98 Room Air 12/12/16 20:54 99.0 71 17 134/78 98 Room Air 12/12/16 18:47 99.0 75 18 160/89 97 Room Air 12/12/16 16:26 99.0 76 21 154/88 94 Room Air 12/12/16 15:37 98.1 83 16 118/60 95 Room Air Laboratory Tests Test 12/12/16 16:06 12/12/16 17:00 12/12/16 18:36 12/12/16 18:37 White Blood Count 29.5 K/UL (4.8-10.8) *H Red Blood Count 3.63 M/UL (4.20-5.40) L Hemoglobin 10.4 G/DL (12.0-16.0) L Hematocrit 30.5 % (37.0-47.0) L Mean Corpuscular Volume 84 FL (80-99) Mean Corpuscular Hemoglobin 28.7 PG (27.0-31.0) Mean Corpuscular Hemoglobin Concent 34.1 G/DL (32.0-36.0) Red Cell Distribution Width 18.4 % (11.6-14.8) H Platelet Count 309 K/UL (150-450) Mean Platelet Volume 6.9 FL (6.5-10.1) Neutrophils (%) (Auto) % (45.0-75.0) Lymphocytes (%) (Auto) % (20.0-45.0) Monocytes (%) (Auto) % (1.0-10.0) Eosinophils (%) (Auto) % (0.0-3.0) Basophils (%) (Auto) % (0.0-2.0) Differential Total Cells Counted 100 Neutrophils % (Manual) 84 % (45-75) H Lymphocytes % (Manual) 6 % (20-45) L Monocytes % (Manual) 4 % (1-10) Eosinophils % (Manual) 0 % (0-3) Basophils % (Manual) 0 % (0-2) Band Neutrophils 6 % (0-8) Platelet Estimate Adequate Platelet Morphology Normal Polychromasia 1+ Hypochromasia 2+ Anisocytosis 1+ Target Cells 1+ Prothrombin Time 13.9 SEC (9.30-11.50) H Prothromb Time International Ratio 1.4 (0.9-1.1) H Activated Partial Thromboplast Time 24 SEC (23-33) Sodium Level 151 mEQ/L (135-145) H Potassium Level 3.5 mEQ/L (3.4-4.9) Chloride Level 110 mEQ/L (98-107) H Carbon Dioxide Level 26 mEQ/L (20-30) Anion Gap 15 (5-15) Blood Urea Nitrogen 45 mg/dL (7-23) H Creatinine 1.2 mg/dL (0.5-0.9) H Estimat Glomerular Filtration Rate mL/min (>60) Glucose Level 107 mg/dL (74-106) H Lactic Acid Level 2.20 mmol/L (0.66-2.22) 2.30 mmol/L (0.66-2.22) H Calcium Level 13.7 mg/dL (8.6-10.2) *H Total Bilirubin 1.0 mg/dL (0.0-1.2) Aspartate Amino Transf (AST/SGOT) 45 U/L (5-40) H Alanine Aminotransferase (ALT/SGPT) 37 U/L (3-33) H Alkaline Phosphatase 179 U/L (35-104) H Total Creatine Kinase 51 U/L (26-140) Creatine Kinase MB < 1.5 ng/mL (< 3.8) Creatine Kinase MB Relative Index 2.9 Troponin I < 0.30 ng/mL (<=0.30) Pro-B-Type Natriuretic Peptide 23985 pg/mL (0-450) H Total Protein 6.0 g/dL (6.6-8.7) L Albumin 2.2 g/dL (3.5-5.2) L Globulin 3.8 g/dL Albumin/Globulin Ratio 0.5 (1.0-2.7) L Lipase 20 U/L (< 60) Arterial Blood pH 7.470 (7.350-7.450) Arterial Blood Partial Pressure CO2 34.3 mmHg (35.0-45.0) L Arterial Blood Partial Pressure O2 84.3 mmHg (75.0-100.0) Arterial Blood HCO3 24.8 mmol/L (22.0-26.0) Arterial Blood Oxygen Saturation 95.4 % (92.0-98.0) Arterial Blood Base Excess 1.5 Yash Test Positive Urine Color Yellow Urine Appearance Slightly cloudy Urine pH 5 (4.5-8.0) Urine Specific [place] 1.010 (1.005-1.035) Urine Protein 2+ (NEGATIVE) H Urine Glucose (UA) Negative (NEGATIVE) Urine Ketones Negative (NEGATIVE) Urine Occult Blood 1+ (NEGATIVE) H Urine Nitrite Negative (NEGATIVE) Urine Bilirubin Negative (NEGATIVE) Urine Urobilinogen 4 MG/DL (0.0-1.0) H Urine Leukocyte Esterase 3+ (NEGATIVE) H Urine RBC 5-10 /HPF (0 - 2) H Urine WBC 15-20 /HPF (0 - 2) H Urine Squamous Epithelial Cells Few /LPF (NONE/OCC) Urine Amorphous Sediment Few /LPF (NONE) H Urine Bacteria Many /HPF (NONE) H Test 12/12/16 19:15 Ionized Calcium (Measured) 1.79 mmol/L (1.10-1.35) *H Height (Feet): 5 Height (Inches): 5.00 Weight (Pounds): 140 Medications Current Medications Medications (Trade) Dose Ordered Sig/David Route PRN Reason Start Time Stop Time Status Last Admin Dose Admin Acetaminophen (Tylenol) 650 mg Q4H PRN ORAL fever 12/12/16 17:45 01/11/17 17:44 Albuterol/ Ipratropium 3 ml 3 ml Q4H PRN HHN Shortness of Breath 12/12/16 17:45 12/17/16 17:44 Cefepime HCl/ Dextrose (Maxipime/D5W) 110 ml @ 220 mls/hr Q24H IV 12/12/16 22:00 12/19/16 21:59 12/12/16 22:43 Cinacalcet (Sensipar) 90 mg DAILY ORAL 12/13/16 09:00 01/12/17 08:59 Dextrose/Sodium Chloride (D5 0.45% NS) 1,000 ml @ 100 mls/hr Q10H IV 12/12/16 19:30 01/11/17 19:29 12/12/16 20:02 Docusate Sodium (Colace) 100 mg TWICE A DAY ORAL 12/12/16 20:50 01/11/17 20:49 12/12/16 20:54 Heparin Sodium (Porcine) (Heparin 5000 units/ml) 5,000 units EVERY 12 HOURS SUBQ 12/12/16 22:00 01/11/17 21:59 12/12/16 22:44 Morphine Sulfate (Morphine Sulfate) 2 mg Q4H PRN IVP Moderate Pain (Pain Scale 4-6) 12/12/16 17:45 12/19/16 17:44 Nitroglycerin 0.4 mg 0.4 mg Q5M PRN SL Prn Chest Pain 12/12/16 17:45 01/11/17 17:44 Ondansetron HCl (Zofran) 4 mg Q6H PRN IVP Nausea & Vomiting 12/12/16 17:45 01/11/17 17:44 Pantoprazole (Protonix) 40 mg DAILY IVP 12/13/16 09:00 01/12/17 08:59 Polyethylene Glycol (Miralax) 17 gm DAILYPRN PRN ORAL Constipation 12/12/16 17:45 01/11/17 17:44 Temazepam (Restoril) 15 mg HSPRN PRN ORAL Insomnia 12/12/16 17:45 12/19/16 17:44 Vancomycin HCl 1 ea 1 ea DAILY PRN MISC PER RX PROTOCOL 12/12/16 21:15 01/11/17 21:14 Vancomycin HCl 1 gm/Dextrose 275 ml @ 183.708 mls/hr ONCE ONCE IVPB 12/13/16 00:00 12/13/16 01:29 Vancomycin HCl/ Dextrose (Vancomycin/D5W) 275 ml @ 183.708 mls/hr Q24H IVPB 12/14/16 00:00 12/19/16 00:00 Assessment/Plan Problem List: (1) Sepsis ICD Codes: A41.9 - Sepsis, unspecified organism SNOMED: 86464596 (2) Acute encephalopathy ICD Codes: G93.40 - Encephalopathy, unspecified SNOMED: 2585681 (3) Renal failure ICD Codes: N19 - Unspecified kidney failure SNOMED: 92997411 (4) UTI (urinary tract infection) ICD Codes: N39.0 - Urinary tract infection, site not specified SNOMED: 85851571 (5) Decubitus ulcer of sacral area ICD Codes: L89.159 - Pressure ulcer of sacral region, unspecified stage SNOMED: 881185644 (6) Anemia ICD Codes: D64.9 - Anemia, unspecified SNOMED: 519246623 (7) Alzheimer's dementia ICD Codes: G30.9 - Alzheimer's disease, unspecified SNOMED: 89953083 Assessment/Plan IV fluids IV antibiotics check cultures wound care npo for now might need swallow study when better EVENS CASTELLON Dec 12, 2016 23:25
[2016-12-13] VITALS: BP 150/75
[2016-12-13] MEDS ORDERED: Vancomycin 1gm/D5W 275ml IVPB ONE ×2
[2016-12-13] MEDS ORDERED: Vancomycin 1 GM in D5W 275 ML IV SCH (00:30)
[2016-12-13 04:00] VITALS: BP 100/54
[2016-12-13] MEDS: D5 1/2NS 1,000 ML IV SCH ×2 (06:21→17:00)
[2016-12-13 07:47] VITALS: BP 103/51
[2016-12-13 07:52] LABS: APPEARANCE,URINE SLIGHTLY CLOUDY; KETONES,URINE NEGATIVE (NEGATIVE); LEUKOCYTE ESTERASE ,URINE 3+ (NEGATIVE); NITRITE,URINE NEGATIVE (NEGATIVE); PH,URINE 5 (4.5-8.0); PROTEIN,URINE 2+ (NEGATIVE); UROBILINOGEN,URINE 1 MG/DL (0.0-1.0)
[2016-12-13 08:07] LABS: AMORPHOUS SEDIMENT,UR FEW /LPF; BACTERIA,URINE MODERATE /HPF; CALCIUM OXALATE CRYSTALS,UR FEW /LPF; RBC,URINE 0-2 /HPF (0 - 2); SQUAMOUS EPITHELIAL CELL,UR FEW /LPF (NONE/OCC)
[2016-12-13 08:15] LABS: MEAN CORPUSCULAR HEMOGLOBIN 26.8 PG (27.0-31.0); MEAN CORPUSCULAR HGB CONC 32.2 G/DL (32.0-36.0); MEAN CORPUSCULAR VOLUME 83 FL (80-99); MEAN PLATELET VOLUME 7.5 FL (6.5-10.1); PLATELET COUNT 264 K/UL (150-450); RED BLOOD COUNT 3.48 M/UL (4.20-5.40); RED CELL DISTRIBUTION WIDTH 18.5 % (11.6-14.8)
--- NOTE | 2016-12-13 08:15 | Diagnostic Imaging Report ---
Indications: Chest pain, shortness of breath Technique: Portable AP chest Findings: Comparison: 10/18/2016 Cardiac silhouette has decreased in size. Left midlung linear densities have resolved. Lungs and pleura currently clear. Aortic arch calcification, midline inferior mediastinal soft tissue density compatible with hiatal hernia, left chest wall pacemaker again noted. IMPRESSION: No current evidence of acute cardio pulmonary disease Resolution of previous left lung subsegmental atelectasis Stable chronic changes as described
[2016-12-13 08:19] LABS: CRP QUANT 27.6 mg/dL (< 0.5); MAGNESIUM 1.6 mg/dL (1.7-2.5); URIC ACID 9.8 mg/dL (3.0-7.5)
[2016-12-13 08:21] LABS: WHITE BLOOD COUNT 24.9 K/UL (4.8-10.8)
[2016-12-13 08:36] LABS: PHOSPHORUS 0.7 mg/dL (2.5-4.8)
[2016-12-13 08:46] LABS: BAND NEUTROPHILS % (MANUAL) 6 % (0-8); LYMPHOCYTES % (MANUAL) 4 % (20-45); NEUTROPHILS % (MANUAL) 88 % (45-75); NUCLEATED RED BLOOD CELLS 1 /100 WBC; TOTAL CELLS COUNTED 100
[2016-12-13 08:48] LABS: ANISOCYTOSIS 2+; BASOPHILS % (MANUAL) 0 % (0-2); EOSINOPHILS % (MANUAL) 0 % (0-3); PLATELET ESTIMATE ADEQUATE; PLATELET MORPHOLOGY NORMAL
[2016-12-13 08:50] LABS: HEMOGLOBIN A1C 4.8 % (< 6.0); HYPOCHROMASIA 1+; TARGET CELLS 1+
[2016-12-13] MEDS: Docusate 100mg cap ORAL SCH ×2 (09:00→18:00)
[2016-12-13] MEDS ORDERED: Sensipar 30mg Tab ORAL SCH ×2 (09:00)
[2016-12-13 09:01] LABS: ALANINE AMINOTRANSFERASE 26 U/L (3-33); ALBUMIN/GLOBULIN RATIO 0.7 (1.0-2.7); ANION GAP 15 (5-15); ASPARTATE AMINO TRANSFERASE 18 U/L (5-40); CALCIUM 12.9 mg/dL (8.6-10.2); CARBON DIOXIDE 22 mEQ/L (20-30); CHLORIDE 111 mEQ/L (98-107); CREATININE 0.9 mg/dL (0.5-0.9); HEMOLYSIS 6; SODIUM 148 mEQ/L (135-145); TOTAL PROTEIN 4.7 g/dL (6.6-8.7)
[2016-12-13 09:04] LABS: POTASSIUM 2.6 mEQ/L (3.4-4.9)
--- NOTE | 2016-12-13 09:44 | Consultation ---
Consult Note Consult Note ID Dic# [id number] RADHA BAILON M.D. Dec 13, 2016 09:44
[2016-12-13] MEDS: Phospha 250 Neutral tab ORAL SCH ×3 (10:00→18:00)
--- NOTE | 2016-12-13 10:26 | Wound Care Consultation ---
Wound Assessment Wound Assessment #1: Wound Number: #1 Wound Present on Admission: Yes New Wound: No Status Change of Wound: No Wound Location Body Site Modif: left, lateral Wound Location Body Site: malleolus/ankle Wound Type: pressure ulcer Crystal Test: Does not Crystal Pressure Ulcer Stage: IV/unstageable Wound Thickness: Full Thickness Wound Length: 1.0 Wound Width: 2.0 Wound Depth: UTD Percent of Wound Black/Brown: 100 Wound Drainage Amount: None Wound Drainage Odor: None/Absent Tissue Surrounding Wound: Erythemic Wound General Appearance: Reddened, Necrotic, Bone Palpable - NOT VISIBLE Wound Assessment #2: Wound Number: #2 Wound Present on Admission: Yes New Wound: No Status Change of Wound: No Wound Location Body Site Modif: right Wound Location Body Site: heel Wound Type: pressure ulcer Crystal Test: Does not Crystal Pressure Ulcer Stage: IV/unstageable Wound Thickness: Full Thickness Wound Length: 6.0 Wound Width: 6.0 Wound Depth: UTD Percent of Wound Black/Brown: 100 Wound Drainage Amount: None Wound Drainage Odor: None/Absent Tissue Surrounding Wound: Erythemic Wound General Appearance: Reddened, Necrotic Wound Assessment #3: Wound Number: #3 Wound Present on Admission: Yes New Wound: No Status Change of Wound: No Wound Location Body Site: sacral Wound Type: pressure ulcer Crystal Test: Does not Crystal Pressure Ulcer Stage: IV/unstageable Wound Thickness: Full Thickness Wound Length: 14.0 Wound Width: 14.0 Wound Depth: UTD Percent of Wound Bed Yellow/Wh: 10 Percent of Wound Black/Brown: 90 Wound Drainage Description: Serosanguineous, Faint yellow - [place] Wound Drainage Amount: Copious Wound Drainage Odor: Foul Odor Tissue Surrounding Wound: Macerated Wound General Appearance: Blackened, Draining, Necrotic - SOFT , BOGGY, MOIST NECROTIC TISSUE., Bone Palpable - NOT VISIBLE Wound Assessment #4: Wound Number: #1 Wound Present on Admission: Yes New Wound: No Status Change of Wound: No Wound Location Body Site Modif: left Wound Location Body Site: metatarsal head - 1ST Wound Type: pressure ulcer Crystal Test: Does not Crystal Pressure Ulcer Stage: deep tissue injury Wound Thickness: Full Thickness Wound Length: 1.0 Wound Width: 1.0 Wound Depth: UTD Percent of Wound Purple/Maroon: 100 Wound Drainage Amount: None Wound Drainage Odor: None/Absent Tissue Surrounding Wound: Erythemic Wound General Appearance: Reddened - SURROUNDING TISSUE RED, [place] DTI PRESENT Wound Assessment #5: Wound Number: #5 Wound Present on Admission: Yes New Wound: No Status Change of Wound: No Wound Location Body Site Modif: left, lateral Wound Location Body Site: knee Wound Type: pressure ulcer Crystal Test: Does not Crystal Pressure Ulcer Stage: deep tissue injury Wound Thickness: Full Thickness Wound Length: 2.5 Wound Width: 2.0 Wound Depth: UTD Percent of Wound Purple/Maroon: 100 Wound Drainage Amount: None Wound Drainage Odor: None/Absent Tissue Surrounding Wound: Erythemic Wound General Appearance: Reddened - SURROUNDING TISSUE RED WITH DTI PRESENT Wound Assessment #6: Wound Number: #6 Wound Present on Admission: Yes New Wound: No Status Change of Wound: No Wound Location Body Site Modif: right, lateral Wound Location Body Site: knee Wound Type: pressure ulcer Crystal Test: Does not Crystal Pressure Ulcer Stage: IV/unstageable Wound Thickness: Full Thickness Wound Length: 2.0 Wound Width: 2.0 Wound Depth: UTD Percent of Wound Black/Brown: 100 Wound Drainage Amount: None Wound Drainage Odor: None/Absent Tissue Surrounding Wound: Erythemic Wound General Appearance: Reddened, Blackened - THICK BLACK ADHERED SCAB TO SITE UNABLE TO VIEW WOUND BED. Wound Assessment #7: Wound Present on Admission: Yes New Wound: No Status Change of Wound: No Wound Location Body Site Modif: left, posterior Wound Location Body Site: scapula Wound Type: pressure ulcer Crystal Test: Does not Crystal Pressure Ulcer Stage: deep tissue injury - SUSPECTED Wound Thickness: Full Thickness Wound Length: 2.0 Wound Width: 1.0 Wound Depth: UTD Percent of Wound Yellow [place]/Red: 50 Percent of Wound Purple/Maroon: 50 Wound Drainage Amount: None Wound Drainage Odor: None/Absent Tissue Surrounding Wound: Erythemic - INTACT Wound General Appearance: Reddened Wound Comment #1 Left lateral malleolus pressure ulcer stage IV/Unstageable. #2 Right heel pressure ulcer stage IV/Unstageable. #3 Sacral pressure ulcer stage IV/Unstageable. #4 Left 1st metatarsal head pressure ulcer Deep tissue injury. #5 Left lateral knee pressure ulcer Deep tissue injury. #6 Right lateral knee pressure ulcer stage IV/Unstageable. #7 Left posterior scapula suspected Deep tissue injury. Recommendation. -FOLLOW UP WITH MD REGARDING POSSIBLE SURGICAL INTERVENTION. -Apply low air loss mattress with AP P200. -Local wound care as ordered. -Keep clean and dry. -Optimize nutrition. -Turn and reposition. -Offload affected wound sites, heels and feet. -Heel protectors. -Assess and notify MD if any further changes are noted. FAHAD SEGUNDO Dec 13, 2016 10:26
[2016-12-13] MEDS ORDERED: Potassium Phosphate 30 MM in NS 275 ML IV ONE (10:30)
--- NOTE | 2016-12-13 10:35 | General Progress Note ---
Assessment/Plan Status: stable Assessment/Plan status: Acute renal failure- mainly prerenal improved HyperCalcemia- being treated Leukocytosis / sepsis, on antibiotics other conditions mentioned in PH: -History of anemia. -Hypertension. -Diabetes type 2. -History of coronary artery disease. -Renal failure. -Paroxysmal atrial fibrillation. -History of right lower extremity deep venous thrombosis. -Arthritis. -Alzheimer's dementia. -Pacemaker in situ. Plan: Hydrate- Phos and K supplement now and as needed- [place]- Monitor renal parameters- per orders- discussed with RN Subjective ROS Limited/Unobtainable: No Constitutional: Reports: malaise, weakness Allergies: Coded Allergies: NO KNOWN ALLERGIES (Unverified Allergy, Unknown, 09/05/15) Objective Last 24 Hour Vital Signs Date Time Temp Pulse Resp B/P Pulse Ox O2 Delivery O2 Flow Rate FiO2 12/13/16 07:47 96.1 64 18 103/51 94 Room Air 12/13/16 04:00 71 12/13/16 04:00 98.1 73 18 100/54 93 Room Air 12/13/16 00:00 78 12/13/16 00:00 97.9 71 18 150/75 95 Room Air 12/12/16 23:14 97.7 75 18 150/70 95 Room Air 12/12/16 20:56 99.0 71 17 134/78 98 Room Air 12/12/16 20:54 99.0 71 17 134/78 98 Room Air 12/12/16 18:47 99.0 75 18 160/89 97 Room Air 12/12/16 16:26 99.0 76 21 154/88 94 Room Air 12/12/16 15:37 98.1 83 16 118/60 95 Room Air Intake and Output 12/12/16 12/13/16 19:00 07:00 Intake Total 1587.416 ml Output Total 200 ml 550 ml Balance -200 ml 1037.416 ml Intake IV Total 1587.416 ml Output Urine Total 200 ml 550 ml # Voids 1 3 Laboratory Tests 12/12/16 16:06: White Blood Count 29.5*H, Red Blood Count 3.63L, Hemoglobin 10.4L, Hematocrit 30.5L, Mean Corpuscular Volume 84, Mean Corpuscular Hemoglobin 28.7, Mean Corpuscular Hemoglobin Concent 34.1, Red Cell Distribution Width 18.4H, Platelet Count 309, Mean Platelet Volume 6.9, Neutrophils (%) (Auto) , Lymphocytes (%) (Auto) , Monocytes (%) (Auto) , Eosinophils (%) (Auto) , Basophils (%) (Auto) , Differential Total Cells Counted 100, Neutrophils % ( Manual) 84H, Lymphocytes % (Manual) 6L, Monocytes % (Manual) 4, Eosinophils % ( Manual) 0, Basophils % (Manual) 0, Band Neutrophils 6, Platelet Estimate Adequate, Platelet Morphology Normal, Polychromasia 1+, Hypochromasia 2+, Anisocytosis 1+, Target Cells 1+, Prothrombin Time 13.9H, Prothromb Time International Ratio 1.4H, Activated Partial Thromboplast Time 24, Sodium Level 151H, Potassium Level 3.5, Chloride Level 110H, Carbon Dioxide Level 26, Anion Gap 15, Blood Urea Nitrogen 45H, Creatinine 1.2H, Estimat Glomerular Filtration Rate , Glucose Level 107H, Lactic Acid Level 2.20, Calcium Level 13.7*H, Total Bilirubin 1.0, Aspartate Amino Transf (AST/SGOT) 45H, Alanine Aminotransferase ( ALT/SGPT) 37H, Alkaline Phosphatase 179H, Total Creatine Kinase 51, Creatine Kinase MB < 1.5, Creatine Kinase MB Relative Index 2.9, Troponin I < 0.30, Pro-B -Type Natriuretic Peptide 19905S, Total Protein 6.0L, Albumin 2.2L, Globulin 3.8 , Albumin/Globulin Ratio 0.5L, Lipase 20 12/12/16 17:00: Arterial Blood pH 7.470H, Arterial Blood Partial Pressure CO2 34.3L, Arterial Blood Partial Pressure O2 84.3, Arterial Blood HCO3 24.8, Arterial Blood Oxygen Saturation 95.4, Arterial Blood Base Excess 1.5, Yash Test Positive 12/12/16 18:36: Lactic Acid Level 2.30H 12/12/16 18:37: Urine Color Yellow, Urine Appearance Slightly cloudy, Urine pH 5, Urine Specific [place] 1.010, Urine Protein 2+H, Urine Glucose (UA) Negative, Urine Ketones Negative, Urine Occult Blood 1+H, Urine Nitrite Negative, Urine Bilirubin Negative, Urine Urobilinogen 4H, Urine Leukocyte Esterase 3+H, Urine RBC 5-10H, Urine WBC 15-20H, Urine Squamous Epithelial Cells Few, Urine Amorphous Sediment FewH, Urine Bacteria ManyH 12/12/16 19:15: Ionized Calcium (Measured) 1.79*H 12/13/16 05:20: Urine Color Yellow, Urine Appearance Slightly cloudy, Urine pH 5, Urine Specific [place] 1.010, Urine Protein 2+H, Urine Glucose (UA) Negative, Urine Ketones Negative, Urine Occult Blood Negative, Urine Nitrite Negative, Urine Bilirubin Negative, Urine Urobilinogen 1H, Urine Leukocyte Esterase 3+H, Urine RBC 0-2, Urine WBC 10-15H, Urine Squamous Epithelial Cells Few, Urine Calcium Oxalate Crystals Few, Urine Amorphous Sediment FewH, Urine Bacteria ModerateH 12/13/16 07:48: White Blood Count 24.9*H, Red Blood Count 3.48L, Hemoglobin 9.3L, Hematocrit 29.0L, Mean Corpuscular Volume 83, Mean Corpuscular Hemoglobin 26.8L, Mean Corpuscular Hemoglobin Concent 32.2, Red Cell Distribution Width 18.5H, Platelet Count 264, Mean Platelet Volume 7.5, Neutrophils (%) (Auto) , Lymphocytes (%) (Auto) , Monocytes (%) (Auto) , Eosinophils (%) (Auto) , Basophils (%) (Auto) , Differential Total Cells Counted 100, Neutrophils % ( Manual) 88H, Lymphocytes % (Manual) 4L, Monocytes % (Manual) 2, Eosinophils % ( Manual) 0, Basophils % (Manual) 0, Band Neutrophils 6, Nucleated Red Blood Cells 1, Platelet Estimate Adequate, Platelet Morphology Normal, Hypochromasia 1 +, Anisocytosis 2+, Target Cells 1+, Sodium Level 148H, Potassium Level 2.6*L, Chloride Level 111H, Carbon Dioxide Level 22, Anion Gap 15, Blood Urea Nitrogen 43H, Creatinine 0.9, Estimat Glomerular Filtration Rate , Glucose Level 187H, Hemoglobin A1c 4.8, Uric Acid 9.8H, Calcium Level 12.9H, Phosphorus Level 0.7*L , Magnesium Level 1.6L, Total Bilirubin 0.7, Gamma Glutamyl Transpeptidase 75H, Aspartate Amino Transf (AST/SGOT) 18, Alanine Aminotransferase (ALT/SGPT) 26, Alkaline Phosphatase 129H, Total Creatine Kinase 15L, C-Reactive Protein, Quantitative 27.6H, Pro-B-Type Natriuretic Peptide 35276U, Total Protein 4.7L, Albumin 2.0L, Globulin 2.7, Albumin/Globulin Ratio 0.7L Height (Feet): 5 Height (Inches): 5.00 Weight (Pounds): 140 General Appearance: no apparent distress, alert Cardiovascular: normal rate Respiratory/Chest: decreased breath sounds Abdomen: soft Edema: no edema noted Arm (L), no edema noted Arm (R), no edema noted Leg (L), no edema noted Leg (R), no edema noted Pedal (L), no edema noted Pedal (R), no edema noted Generalized Objective other PE not changed EARNEST CADET Dec 13, 2016 10:35
[2016-12-13] MEDS: Pantoprazole Inj IVP SCH (10:42)
[2016-12-13] MEDS: Heparin 5000 units/ml inj SUBQ SCH ×2 (10:47→21:17)
[2016-12-13 11:16] VITALS: BP 131/58
--- NOTE | 2016-12-13 12:23 | Diagnostic Imaging Report ---
Indication: Dyspnea Comparison: 12/12/16 A single view chest radiograph was obtained. Findings: No definite infiltrate or pulmonary vascular congestion identified. There is a pacemaker present. The heart is enlarged. The aorta is mildly enlarged consistent with atherosclerotic vascular disease. The bones are osteopenic. Impression: No acute disease
--- NOTE | 2016-12-13 13:07 | Pulmonology Progress Note ---
Assessment/Plan Problems: (1) Sepsis (2) Acute encephalopathy (3) Renal failure (4) UTI (urinary tract infection) (5) Decubitus ulcer of sacral area (6) Anemia (7) Alzheimer's dementia Assessment/Plan continue antibiotics check cultures surgical consult for debridement called. check electrolytes iv fluids check Ca daily might benefit from palliative and end of life discussion with family. Subjective ROS Limited/Unobtainable: Yes Interval Events: still somnolent, Allergies: Coded Allergies: NO KNOWN ALLERGIES (Unverified Allergy, Unknown, 09/05/15) Objective Last 24 Hour Vital Signs Date Time Temp Pulse Resp B/P Pulse Ox O2 Delivery O2 Flow Rate FiO2 12/13/16 11:16 96.3 94 18 131/58 95 Room Air 12/13/16 07:47 96.1 64 18 103/51 94 Room Air 12/13/16 07:30 71 18 Room Air 21 12/13/16 04:00 71 12/13/16 04:00 98.1 73 18 100/54 93 Room Air 12/13/16 00:00 78 12/13/16 00:00 97.9 71 18 150/75 95 Room Air 12/12/16 23:14 97.7 75 18 150/70 95 Room Air 12/12/16 20:56 99.0 71 17 134/78 98 Room Air 12/12/16 20:54 99.0 71 17 134/78 98 Room Air 12/12/16 18:47 99.0 75 18 160/89 97 Room Air 12/12/16 16:26 99.0 76 21 154/88 94 Room Air 12/12/16 15:37 98.1 83 16 118/60 95 Room Air Intake and Output 12/12/16 12/13/16 19:00 07:00 Intake Total 1587.416 ml Output Total 200 ml 550 ml Balance -200 ml 1037.416 ml Intake IV Total 1587.416 ml Output Urine Total 200 ml 550 ml # Voids 1 3 General Appearance: cachetic Respiratory/Chest: chest wall non-tender, lungs clear Cardiovascular: normal peripheral pulses, normal rate Abdomen: normal bowel sounds, soft, non tender 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, no motor/sensory deficits Lymphatic: no neck adenopathy, no groin adenopathy Microbiology Date/Time Source Procedure Growth Status 12/12/16 18:37 Urine,Clean Catch Urine Culture - Preliminary Resulted Laboratory Tests 12/12/16 16:06: White Blood Count 29.5*H, Red Blood Count 3.63L, Hemoglobin 10.4L, Hematocrit 30.5L, Mean Corpuscular Volume 84, Mean Corpuscular Hemoglobin 28.7, Mean Corpuscular Hemoglobin Concent 34.1, Red Cell Distribution Width 18.4H, Platelet Count 309, Mean Platelet Volume 6.9, Neutrophils (%) (Auto) , Lymphocytes (%) (Auto) , Monocytes (%) (Auto) , Eosinophils (%) (Auto) , Basophils (%) (Auto) , Differential Total Cells Counted 100, Neutrophils % ( Manual) 84H, Lymphocytes % (Manual) 6L, Monocytes % (Manual) 4, Eosinophils % ( Manual) 0, Basophils % (Manual) 0, Band Neutrophils 6, Platelet Estimate Adequate, Platelet Morphology Normal, Polychromasia 1+, Hypochromasia 2+, Anisocytosis 1+, Target Cells 1+, Prothrombin Time 13.9H, Prothromb Time International Ratio 1.4H, Activated Partial Thromboplast Time 24, Sodium Level 151H, Potassium Level 3.5, Chloride Level 110H, Carbon Dioxide Level 26, Anion Gap 15, Blood Urea Nitrogen 45H, Creatinine 1.2H, Estimat Glomerular Filtration Rate , Glucose Level 107H, Lactic Acid Level 2.20, Calcium Level 13.7*H, Total Bilirubin 1.0, Aspartate Amino Transf (AST/SGOT) 45H, Alanine Aminotransferase ( ALT/SGPT) 37H, Alkaline Phosphatase 179H, Total Creatine Kinase 51, Creatine Kinase MB < 1.5, Creatine Kinase MB Relative Index 2.9, Troponin I < 0.30, Pro-B -Type Natriuretic Peptide 84321T, Total Protein 6.0L, Albumin 2.2L, Globulin 3.8 , Albumin/Globulin Ratio 0.5L, Lipase 20 12/12/16 17:00: Arterial Blood pH 7.470H, Arterial Blood Partial Pressure CO2 34.3L, Arterial Blood Partial Pressure O2 84.3, Arterial Blood HCO3 24.8, Arterial Blood Oxygen Saturation 95.4, Arterial Blood Base Excess 1.5, Yash Test Positive 12/12/16 18:36: Lactic Acid Level 2.30H 12/12/16 18:37: Urine Color Yellow, Urine Appearance Slightly cloudy, Urine pH 5, Urine Specific [place] 1.010, Urine Protein 2+H, Urine Glucose (UA) Negative, Urine Ketones Negative, Urine Occult Blood 1+H, Urine Nitrite Negative, Urine Bilirubin Negative, Urine Urobilinogen 4H, Urine Leukocyte Esterase 3+H, Urine RBC 5-10H, Urine WBC 15-20H, Urine Squamous Epithelial Cells Few, Urine Amorphous Sediment FewH, Urine Bacteria ManyH 12/12/16 19:15: Ionized Calcium (Measured) 1.79*H 12/13/16 05:20: Urine Color Yellow, Urine Appearance Slightly cloudy, Urine pH 5, Urine Specific [place] 1.010, Urine Protein 2+H, Urine Glucose (UA) Negative, Urine Ketones Negative, Urine Occult Blood Negative, Urine Nitrite Negative, Urine Bilirubin Negative, Urine Urobilinogen 1H, Urine Leukocyte Esterase 3+H, Urine RBC 0-2, Urine WBC 10-15H, Urine Squamous Epithelial Cells Few, Urine Calcium Oxalate Crystals Few, Urine Amorphous Sediment FewH, Urine Bacteria ModerateH 12/13/16 07:48: White Blood Count 24.9*H, Red Blood Count 3.48L, Hemoglobin 9.3L, Hematocrit 29.0L, Mean Corpuscular Volume 83, Mean Corpuscular Hemoglobin 26.8L, Mean Corpuscular Hemoglobin Concent 32.2, Red Cell Distribution Width 18.5H, Platelet Count 264, Mean Platelet Volume 7.5, Neutrophils (%) (Auto) , Lymphocytes (%) (Auto) , Monocytes (%) (Auto) , Eosinophils (%) (Auto) , Basophils (%) (Auto) , Differential Total Cells Counted 100, Neutrophils % ( Manual) 88H, Lymphocytes % (Manual) 4L, Monocytes % (Manual) 2, Eosinophils % ( Manual) 0, Basophils % (Manual) 0, Band Neutrophils 6, Nucleated Red Blood Cells 1, Platelet Estimate Adequate, Platelet Morphology Normal, Hypochromasia 1 +, Anisocytosis 2+, Target Cells 1+, Sodium Level 148H, Potassium Level 2.6*L, Chloride Level 111H, Carbon Dioxide Level 22, Anion Gap 15, Blood Urea Nitrogen 43H, Creatinine 0.9, Estimat Glomerular Filtration Rate , Glucose Level 187H, Hemoglobin A1c 4.8, Uric Acid 9.8H, Calcium Level 12.9H, Phosphorus Level 0.7*L , Magnesium Level 1.6L, Total Bilirubin 0.7, Gamma Glutamyl Transpeptidase 75H, Aspartate Amino Transf (AST/SGOT) 18, Alanine Aminotransferase (ALT/SGPT) 26, Alkaline Phosphatase 129H, Total Creatine Kinase 15L, C-Reactive Protein, Quantitative 27.6H, Pro-B-Type Natriuretic Peptide 90685T, Total Protein 4.7L, Albumin 2.0L, Globulin 2.7, Albumin/Globulin Ratio 0.7L Current Medications Medications (Trade) Dose Ordered Sig/David Route PRN Reason Start Time Stop Time Status Last Admin Dose Admin Acetaminophen (Tylenol) 650 mg Q4H PRN ORAL fever 12/12/16 17:45 01/11/17 17:44 Albuterol/ Ipratropium (DuoNeb 0.5-3(2.5)mg/3ml) 3 ml Q4H PRN HHN Shortness of Breath 12/12/16 17:45 12/17/16 17:44 Calcitonin [place] (Miacalcin) 1 sprays DAILY NASAL 12/13/16 10:00 01/12/17 09:59 12/13/16 10:41 Collagenase (Santyl) 1 applic DAILY TOPIC 12/14/16 13:00 01/13/17 12:59 Dextrose/Sodium Chloride (D5 0.45% NS) 1,000 ml @ 100 mls/hr Q10H IV 12/12/16 19:30 01/11/17 19:29 12/13/16 06:21 Docusate Sodium (Colace) 100 mg TWICE A DAY ORAL 12/12/16 20:50 01/11/17 20:49 12/12/16 20:54 Heparin Sodium (Porcine) (Heparin 5000 units/ml) 5,000 units EVERY 12 HOURS SUBQ 12/12/16 22:00 01/11/17 21:59 12/13/16 10:47 Morphine Sulfate (Morphine Sulfate) 2 mg Q4H PRN IVP Moderate Pain (Pain Scale 4-6) 12/12/16 17:45 12/19/16 17:44 Nitroglycerin 0.4 mg 0.4 mg Q5M PRN SL Prn Chest Pain 12/12/16 17:45 01/11/17 17:44 Ondansetron HCl (Zofran) 4 mg Q6H PRN IVP Nausea & Vomiting 2/27/17 17:45 01/11/17 17:44 Pantoprazole 40 mg 40 mg DAILY IVP 12/13/16 09:00 01/12/17 08:59 12/13/16 10:42 Phosphorus (Phospha 250 Neutral) 500 mg THREE TIMES A DAY ORAL 12/13/16 10:00 01/12/17 09:59 Piperacillin Sod/ Tazobactam Sod/ Dextrose (Zosyn/D5W) 110 ml @ 27.5 mls/hr EVERY 8 HOURS IVPB 12/13/16 14:00 12/18/16 13:59 Polyethylene Glycol (Miralax) 17 gm DAILYPRN PRN ORAL Constipation 12/12/16 17:45 01/11/17 17:44 Potassium Chloride 20 meq 20 meq TWICE A DAY ORAL 12/13/16 10:00 12/14/16 09:59 Potassium Phosphate/Sodium Chloride (Potassium Phosphate/Sodium Chloride) 285 ml @ 47.5 mls/hr ONCE ONCE IV 12/13/16 10:30 12/13/16 16:29 12/13/16 10:42 Temazepam (Restoril) 15 mg HSPRN PRN ORAL Insomnia 12/12/16 17:45 12/19/16 17:44 Vancomycin HCl 1 ea 1 ea DAILY PRN MISC PER RX PROTOCOL 12/12/16 21:15 01/11/17 21:14 Vancomycin HCl/ Dextrose (Vancomycin/D5W) 275 ml @ 183.708 mls/hr Q24H IVPB 12/14/16 00:00 12/19/16 00:00 EVENS CASTELLON Dec 13, 2016 13:07
[2016-12-13] MEDS: Piperacillin/Tazobactam 4.5 GM in D5W 110 ML IVPB SCH ×2 (14:31→22:13)
[2016-12-13 16:00] VITALS: BP 102/61
--- NOTE | 2016-12-13 16:03 | GI Initial Consult Note ---
History of Present Illness General Date patient seen: Dec 13, 2016 Time patient seen: 15:51 Reason for Hospitalization: Altered Mental Status Referring physician: Dr. Holland Reason for Consultation: PEG EVALUATION Present Illness HPI Patient presents by paramedics for acute change in mental status Patient's son arrives as well and provide some input Patient herself is nonverbal and cannot provide any input The son reports that they were feeding the patient she had an acute episode where her hands were shaking patient appeared to be less responsive than previous There was no reports of vomiting or diarrhea Patient has been eating less than usual recently the family denies any obvious fevers or fall. GI CONSULT: HPI as noted above. Pt was admitted previously here at [facility] in October s/p EGD/colonoscopy to evaluate anemia. Pt was scheduled for outpatient capsule endoscopy to further evaluate anemia. GI consulted for FTT. She presents today septic with leukocytosis, anemia, elevated alkaline phosphatase, and hypoalbuminemia. Pt seen on floor, unable to provide any history. According to the daughter, the patient has poor PO intake the past few weeks. DATE OF PROCEDURE: 10/23/2015 SURGEON: Ruben Miles M.D. PROCEDURE: Upper endoscopy with biopsy and colonoscopy with biopsy and polypectomy. INDICATION: Anemia, screening colonoscopy evaluation, abdominal pain, and GERD. SUMMARY OF FINDINGS: 1. Severe gastritis, status post biopsy. 2. Duodenal polyp, status post biopsy. 3. Inflammatory looking polyp in the antrum of the stomach, status post biopsy. 4. Paraesophageal hernia. 5. Two colonic polyp removed, see above for details. 6. Diverticulosis. 7. Internal hemorrhoids. Home Meds Active Scripts Lisinopril* (PRINIVIL*) 10 Mg Tablet, 10 MG ORAL DAILY for 30 Days, TAB Prov:ORLANDO LUDWIG N.P. 04/10/15 Reported Medications Unable to Obtain Medications (UNABLE TO OBTAIN MEDS) 1 Ea Ea 10/19/16 Rivaroxaban (XARELTO) 15 Mg Tablet, 15 MG ORAL DAILY, MG 0 Refills 10/08/16 Lisinopril (LISINOPRIL*) 20 Mg Tablet, 20 MG ORAL BID, TAB 09/30/16 Metoprolol Tartrate* (METOPROLOL TARTRATE*) 50 Mg Tablet, 50 MG ORAL BID, TAB 03/21/16 Cinacalcet* (SENSIPAR*) 30 Mg Tablet, 30 MG ORAL DAILY, TAB 03/21/16 Multivitamin (DAILY ULYSSES) 1 Each Tablet, 1 TAB ORAL DAILY, #30 TAB 0 Refills 03/21/16 Docusate Sodium (DOCUSATE SODIUM) 100 Mg Tablet, 100 MG ORAL TWICE A DAY, #60 TAB 0 Refills 03/21/16 Vit C/Ascorbate Ca/Ascorb Sod (VITAMIN C 500 MG/15 ML LIQUID) 500 Mg/15 Ml Liquid, 500 MG PO, ML 03/21/16 Mirtazapine (MIRTAZAPINE) 15 Mg Tab.rapdis, 15 MG ORAL BEDTIME, TAB 03/21/16 Esomeprazole Magnesium (NEXIUM) 40 Mg Capsule.dr, 40 MG ORAL DAILY, CAP 03/21/16 Amlodipine Besylate* (AMLODIPINE BESYLATE*) 5 Mg Tablet, 5 MG ORAL DAILY, TAB 09/05/15 Furosemide* (LASIX*) 20 Mg Tablet, 20 MG ORAL DAILY, TAB 09/05/15 Nitroglycerin (NITROSTAT) 0.4 Mg Tab.subl, 0.4 MG SL Q5M X3 DOSES Y for To Patient Comfort, #25 TAB 0 Refills 04/02/15 Ranolazine* (RANEXA*) 500 Mg Tab.er.12h, 500 MG ORAL DAILY, #60 TAB 0 Refills 04/02/15 Pravastatin Sod* (PRAVASTATIN SOD*) 20 Mg Tablet, 40 MG ORAL BEDTIME, TAB 05/31/14 Med list reviewed/reconciled: Yes Allergies: Coded Allergies: NO KNOWN ALLERGIES (Unverified Allergy, Unknown, 09/05/15) Patient History History Provided By: Medical Record PMH Narrative Past Medical History: see triage record Pertinent Family History: none Reviewed Nursing Documentation: PMH: Agreed, PSxH: Agreed Nursing Documentation-PMH Hx Hypertension: Yes Hx Pacemaker: Yes Hx Asthma: No Hx COPD: No Hx Diabetes: No Hx Cancer: No Hx Gastrointestinal Problems: No Hx Dialysis: No Hx Neurological Problems: No Hx Cerebrovascular Accident: No Hx Dementia: Yes Hx Seizures: No Hx Dizziness: Yes - 03/21/16 Hx Weakness: Yes Review of Systems All Other Systems: limited Physical Exam Vital Signs Date Time Temp Pulse Resp B/P Pulse Ox O2 Delivery O2 Flow Rate FiO2 12/12/16 15:37 98.1 83 16 118/60 95 Room Air 2/28/17 07:30 21 Sp02 EP Interpretation: reviewed Labs Laboratory Tests Test 12/12/16 16:06 12/12/16 17:00 12/12/16 18:36 12/12/16 18:37 White Blood Count 29.5 K/UL (4.8-10.8) *H Red Blood Count 3.63 M/UL (4.20-5.40) L Hemoglobin 10.4 G/DL (12.0-16.0) L Hematocrit 30.5 % (37.0-47.0) L Mean Corpuscular Volume 84 FL (80-99) Mean Corpuscular Hemoglobin 28.7 PG (27.0-31.0) Mean Corpuscular Hemoglobin Concent 34.1 G/DL (32.0-36.0) Red Cell Distribution Width 18.4 % (11.6-14.8) H Platelet Count 309 K/UL (150-450) Mean Platelet Volume 6.9 FL (6.5-10.1) Neutrophils (%) (Auto) % (45.0-75.0) Lymphocytes (%) (Auto) % (20.0-45.0) Monocytes (%) (Auto) % (1.0-10.0) Eosinophils (%) (Auto) % (0.0-3.0) Basophils (%) (Auto) % (0.0-2.0) Differential Total Cells Counted 100 Neutrophils % (Manual) 84 % (45-75) H Lymphocytes % (Manual) 6 % (20-45) L Monocytes % (Manual) 4 % (1-10) Eosinophils % (Manual) 0 % (0-3) Basophils % (Manual) 0 % (0-2) Band Neutrophils 6 % (0-8) Platelet Estimate Adequate Platelet Morphology Normal Polychromasia 1+ Hypochromasia 2+ Anisocytosis 1+ Target Cells 1+ Prothrombin Time 13.9 SEC (9.30-11.50) H Prothromb Time International Ratio 1.4 (0.9-1.1) H Activated Partial Thromboplast Time 24 SEC (23-33) Sodium Level 151 mEQ/L (135-145) H Potassium Level 3.5 mEQ/L (3.4-4.9) Chloride Level 110 mEQ/L (98-107) H Carbon Dioxide Level 26 mEQ/L (20-30) Anion Gap 15 (5-15) Blood Urea Nitrogen 45 mg/dL (7-23) H Creatinine 1.2 mg/dL (0.5-0.9) H Estimat Glomerular Filtration Rate mL/min (>60) Glucose Level 107 mg/dL (74-106) H Lactic Acid Level 2.20 mmol/L (0.66-2.22) 2.30 mmol/L (0.66-2.22) H Calcium Level 13.7 mg/dL (8.6-10.2) *H Total Bilirubin 1.0 mg/dL (0.0-1.2) Aspartate Amino Transf (AST/SGOT) 45 U/L (5-40) H Alanine Aminotransferase (ALT/SGPT) 37 U/L (3-33) H Alkaline Phosphatase 179 U/L (35-104) H Total Creatine Kinase 51 U/L (26-140) Creatine Kinase MB < 1.5 ng/mL (< 3.8) Creatine Kinase MB Relative Index 2.9 Troponin I < 0.30 ng/mL (<=0.30) Pro-B-Type Natriuretic Peptide 62226 pg/mL (0-450) H Total Protein 6.0 g/dL (6.6-8.7) L Albumin 2.2 g/dL (3.5-5.2) L Globulin 3.8 g/dL Albumin/Globulin Ratio 0.5 (1.0-2.7) L Lipase 20 U/L (< 60) Arterial Blood pH 7.470 (7.350-7.450) Arterial Blood Partial Pressure CO2 34.3 mmHg (35.0-45.0) L Arterial Blood Partial Pressure O2 84.3 mmHg (75.0-100.0) Arterial Blood HCO3 24.8 mmol/L (22.0-26.0) Arterial Blood Oxygen Saturation 95.4 % (92.0-98.0) Arterial Blood Base Excess 1.5 Yash Test Positive Urine Color Yellow Urine Appearance Slightly cloudy Urine pH 5 (4.5-8.0) Urine Specific [place] 1.010 (1.005-1.035) Urine Protein 2+ (NEGATIVE) H Urine Glucose (UA) Negative (NEGATIVE) Urine Ketones Negative (NEGATIVE) Urine Occult Blood 1+ (NEGATIVE) H Urine Nitrite Negative (NEGATIVE) Urine Bilirubin Negative (NEGATIVE) Urine Urobilinogen 4 MG/DL (0.0-1.0) H Urine Leukocyte Esterase 3+ (NEGATIVE) H Urine RBC 5-10 /HPF (0 - 2) H Urine WBC 15-20 /HPF (0 - 2) H Urine Squamous Epithelial Cells Few /LPF (NONE/OCC) Urine Amorphous Sediment Few /LPF (NONE) H Urine Bacteria Many /HPF (NONE) H Test 12/12/16 19:15 12/13/16 05:20 12/13/16 07:48 Ionized Calcium (Measured) 1.79 mmol/L (1.10-1.35) *H Urine Color Yellow Urine Appearance Slightly cloudy Urine pH 5 (4.5-8.0) Urine Specific [place] 1.010 (1.005-1.035) Urine Protein 2+ (NEGATIVE) H Urine Glucose (UA) Negative (NEGATIVE) Urine Ketones Negative (NEGATIVE) Urine Occult Blood Negative (NEGATIVE) Urine Nitrite Negative (NEGATIVE) Urine Bilirubin Negative (NEGATIVE) Urine Urobilinogen 1 MG/DL (0.0-1.0) H Urine Leukocyte Esterase 3+ (NEGATIVE) H Urine RBC 0-2 /HPF (0 - 2) Urine WBC 10-15 /HPF (0 - 2) H Urine Squamous Epithelial Cells Few /LPF (NONE/OCC) Urine Calcium Oxalate Crystals Few /LPF (NONE) Urine Amorphous Sediment Few /LPF (NONE) H Urine Bacteria Moderate /HPF (NONE) H White Blood Count 24.9 K/UL (4.8-10.8) *H Red Blood Count 3.48 M/UL (4.20-5.40) L Hemoglobin 9.3 G/DL (12.0-16.0) L Hematocrit 29.0 % (37.0-47.0) L Mean Corpuscular Volume 83 FL (80-99) Mean Corpuscular Hemoglobin 26.8 PG (27.0-31.0) L Mean Corpuscular Hemoglobin Concent 32.2 G/DL (32.0-36.0) Red Cell Distribution Width 18.5 % (11.6-14.8) H Platelet Count 264 K/UL (150-450) Mean Platelet Volume 7.5 FL (6.5-10.1) Neutrophils (%) (Auto) % (45.0-75.0) Lymphocytes (%) (Auto) % (20.0-45.0) Monocytes (%) (Auto) % (1.0-10.0) Eosinophils (%) (Auto) % (0.0-3.0) Basophils (%) (Auto) % (0.0-2.0) Differential Total Cells Counted 100 Neutrophils % (Manual) 88 % (45-75) H Lymphocytes % (Manual) 4 % (20-45) L Monocytes % (Manual) 2 % (1-10) Eosinophils % (Manual) 0 % (0-3) Basophils % (Manual) 0 % (0-2) Band Neutrophils 6 % (0-8) Nucleated Red Blood Cells 1 /100 WBC Platelet Estimate Adequate Platelet Morphology Normal Hypochromasia 1+ Anisocytosis 2+ Target Cells 1+ Sodium Level 148 mEQ/L (135-145) H Potassium Level 2.6 mEQ/L (3.4-4.9) *L Chloride Level 111 mEQ/L (98-107) H Carbon Dioxide Level 22 mEQ/L (20-30) Anion Gap 15 (5-15) Blood Urea Nitrogen 43 mg/dL (7-23) H Creatinine 0.9 mg/dL (0.5-0.9) Estimat Glomerular Filtration Rate mL/min (>60) Glucose Level 187 mg/dL (74-106) H Hemoglobin A1c 4.8 % (< 6.0) Uric Acid 9.8 mg/dL (3.0-7.5) H Calcium Level 12.9 mg/dL (8.6-10.2) H Phosphorus Level 0.7 mg/dL (2.5-4.8) *L Magnesium Level 1.6 mg/dL (1.7-2.5) L Total Bilirubin 0.7 mg/dL (0.0-1.2) Gamma Glutamyl Transpeptidase 75 U/L (5-36) H Aspartate Amino Transf (AST/SGOT) 18 U/L (5-40) Alanine Aminotransferase (ALT/SGPT) 26 U/L (3-33) Alkaline Phosphatase 129 U/L (35-104) H Total Creatine Kinase 15 U/L (26-140) L C-Reactive Protein, Quantitative 27.6 mg/dL (< 0.5) H Pro-B-Type Natriuretic Peptide 55255 pg/mL (0-450) H Total Protein 4.7 g/dL (6.6-8.7) L Albumin 2.0 g/dL (3.5-5.2) L Globulin 2.7 g/dL Albumin/Globulin Ratio 0.7 (1.0-2.7) L General Appearance: no apparent distress, thin Head: normocephalic Neck: supple Respiratory: no respiratory distress Cardiovascular: normal rate Gastrointestinal: soft, normal bowel sounds Rectal: deferred Psychiatric: normal inspection, judgement/insight normal Skin: normal inspection, normal color, no rash Lymphatic: normal inspection, no adenopathy Current Medications Current Medications Medications (Trade) Dose Ordered Sig/David Route PRN Reason Start Time Stop Time Status Last Admin Dose Admin Acetaminophen (Tylenol) 650 mg Q4H PRN ORAL fever 12/12/16 17:45 01/11/17 17:44 Albuterol/ Ipratropium (DuoNeb 0.5-3(2.5)mg/3ml) 3 ml Q4H PRN HHN Shortness of Breath 12/12/16 17:45 12/17/16 17:44 Calcitonin [place] (Miacalcin) 1 sprays DAILY NASAL 12/13/16 10:00 01/12/17 09:59 12/13/16 10:41 Collagenase (Santyl) 1 applic DAILY TOPIC 12/14/16 13:00 01/13/17 12:59 Dextrose/Sodium Chloride (D5 0.45% NS) 1,000 ml @ 100 mls/hr Q10H IV 12/12/16 19:30 01/11/17 19:29 12/13/16 06:21 Docusate Sodium (Colace) 100 mg TWICE A DAY ORAL 12/12/16 20:50 01/11/17 20:49 12/12/16 20:54 Heparin Sodium (Porcine) (Heparin 5000 units/ml) 5,000 units EVERY 12 HOURS SUBQ 12/12/16 22:00 01/11/17 21:59 12/13/16 10:47 Morphine Sulfate (Morphine Sulfate) 2 mg Q4H PRN IVP Moderate Pain (Pain Scale 4-6) 12/12/16 17:45 12/19/16 17:44 Nitroglycerin 0.4 mg 0.4 mg Q5M PRN SL Prn Chest Pain 12/12/16 17:45 01/11/17 17:44 Ondansetron HCl (Zofran) 4 mg Q6H PRN IVP Nausea & Vomiting 12/12/16 17:45 01/11/17 17:44 Pantoprazole 40 mg 40 mg DAILY IVP 12/13/16 09:00 01/12/17 08:59 12/13/16 10:42 Phosphorus (Phospha 250 Neutral) 500 mg THREE TIMES A DAY ORAL 12/13/16 10:00 01/12/17 09:59 Piperacillin Sod/ Tazobactam Sod/ Dextrose (Zosyn/D5W) 110 ml @ 27.5 mls/hr EVERY 8 HOURS IVPB 12/13/16 14:00 12/18/16 13:59 12/13/16 14:31 Polyethylene Glycol (Miralax) 17 gm DAILYPRN PRN ORAL Constipation 12/12/16 17:45 01/11/17 17:44 Potassium Chloride 20 meq 20 meq TWICE A DAY ORAL 12/13/16 10:00 12/14/16 09:59 Potassium Phosphate/Sodium Chloride (Potassium Phosphate/Sodium Chloride) 285 ml @ 47.5 mls/hr ONCE ONCE IV 12/13/16 10:30 12/13/16 16:29 12/13/16 10:42 Temazepam (Restoril) 15 mg HSPRN PRN ORAL Insomnia 12/12/16 17:45 12/19/16 17:44 Vancomycin HCl 1 ea 1 ea DAILY PRN MISC PER RX PROTOCOL 12/12/16 21:15 01/11/17 21:14 Vancomycin HCl/ Dextrose (Vancomycin/D5W) 275 ml @ 183.708 mls/hr Q24H IVPB 12/14/16 00:00 12/19/16 00:00 GI: Plan Problems: (1) Severe malnutrition (2) Leukocytosis (3) Encounter for PEG (percutaneous endoscopic gastrostomy) (4) Weakness (5) Anemia (6) Pacemaker (7) Iron deficiency (8) Hypoalbuminemia (9) Dehydration Plan PEG on hold for now >> unstable with WBC 25 abx monitor H&H >> transfused prn PPI daily given history of severe gastritis ordered iron panel ordered ST eval push PO bowel regime fu labs patient had EGD/colonoscopy last year 01/16. See full report below. Discussed with Dr. Miles. Thank you for referring this patient, we will follow. Lyndsay Torres N.P. Dec 13, 2016 16:03
--- NOTE | 2016-12-13 17:03 | History & Physical ---
History and Physical History & Physicial Dictated for Int Med-Dr Cruz no. [id number]. RICKY DAVIS Dec 13, 2016 17:03
--- NOTE | 2016-12-13 19:46 | History and Physical ---
History of Present Illness General Date patient seen: Dec 13, 2016 Time patient seen: 19:30 Reason for Hospitalization: Altered Mental Status Present Illness HPI Asked top see this 86 yr old female for sacrococcyx pressure ulcer. Patient was admitted to [facility] for altered mental status. She comes from home. Per the daughter she has had a sacral ulcer for over 6 months but in the last 3 weeks it has become much larger with a foul odor. She has a HHN and has been receiving dressing changes but unclear as to what. She has been bedridden for the last year. Per the daughter her appetite has been poor the last 2 days. Allergies: Coded Allergies: NO KNOWN ALLERGIES (Unverified Allergy, Unknown, 09/05/15) Medication History Scheduled Amlodipine Besylate* (Amlodipine Besylate*), 5 MG ORAL DAILY, (Reported) Cinacalcet* (Sensipar*), 30 MG ORAL DAILY, (Reported) Docusate Sodium (Docusate Sodium), 100 MG ORAL TWICE A DAY, (Reported) Esomeprazole Magnesium (Nexium), 40 MG ORAL DAILY, (Reported) Furosemide* (Lasix*), 20 MG ORAL DAILY, (Reported) Lisinopril (Lisinopril*), 20 MG ORAL BID, (Reported) Lisinopril* (Prinivil*), 10 MG ORAL DAILY Metoprolol Tartrate* (Metoprolol Tartrate*), 50 MG ORAL BID, (Reported) Mirtazapine (Mirtazapine), 15 MG ORAL BEDTIME, (Reported) Multivitamin (Daily [place]), 1 TAB ORAL DAILY, (Reported) Pravastatin Sod* (Pravastatin Sod*), 40 MG ORAL BEDTIME, (Reported) Ranolazine* (Ranexa*), 500 MG ORAL DAILY, (Reported) Rivaroxaban (Xarelto), 15 MG ORAL DAILY, (Reported) Scheduled PRN Nitroglycerin (Nitrostat), 0.4 MG SL Q5M X3 DOSES PRN for To Patient Comfort, ( Reported) Miscellaneous Medications Unable to Obtain Medications (Unable To Obtain Meds), (Reported) Vit C/Ascorbate Ca/Ascorb Sod (Vitamin C 500 Mg/15 Ml Liquid), 500 MG PO, ( Reported) Patient History Limited by: medical condition History Provided By: Family Member, Medical Record Healthcare decision maker pt's family Resuscitation status Full Code Advanced Directive on File Review of Systems Genitourinary: Reports: incontinence Skin: Reports: see HPI Physical Exam General Appearance: no apparent distress Lines, tubes and drains: peripheral, mireles cath Respiratory/Chest: no respiratory distress Abdomen: soft Skin Exam: other - Large unstageable sacral pressure ulcer with eschar that has softened and begun to separate from deeper structures. Odor present. No erythema or warmth in periskin. No crepitus. Last 24 Hour Vital Signs Date Time Temp Pulse Resp B/P Pulse Ox O2 Delivery O2 Flow Rate FiO2 12/13/16 16:00 98.0 79 20 102/61 94 Room Air 12/13/16 12:00 73 12/13/16 11:16 96.3 94 18 131/58 95 Room Air 12/13/16 08:00 63 12/13/16 07:47 96.1 64 18 103/51 94 Room Air 12/13/16 07:30 71 18 Room Air 21 12/13/16 04:00 71 12/13/16 04:00 98.1 73 18 100/54 93 Room Air 12/13/16 00:00 78 12/13/16 00:00 97.9 71 18 150/75 95 Room Air 12/12/16 23:14 97.7 75 18 150/70 95 Room Air 12/12/16 20:56 99.0 71 17 134/78 98 Room Air 12/12/16 20:54 99.0 71 17 134/78 98 Room Air Intake and Output 12/12/16 12/13/16 19:00 07:00 Intake Total 1587.416 ml Output Total 200 ml 550 ml Balance -200 ml 1037.416 ml Intake IV Total 1587.416 ml Output Urine Total 200 ml 550 ml # Voids 1 3 Laboratory Tests Test 12/13/16 05:20 12/13/16 07:48 Urine Color Yellow Urine Appearance Slightly cloudy Urine pH 5 (4.5-8.0) Urine Specific [place] 1.010 (1.005-1.035) Urine Protein 2+ (NEGATIVE) H Urine Glucose (UA) Negative (NEGATIVE) Urine Ketones Negative (NEGATIVE) Urine Occult Blood Negative (NEGATIVE) Urine Nitrite Negative (NEGATIVE) Urine Bilirubin Negative (NEGATIVE) Urine Urobilinogen 1 MG/DL (0.0-1.0) H Urine Leukocyte Esterase 3+ (NEGATIVE) H Urine RBC 0-2 /HPF (0 - 2) Urine WBC 10-15 /HPF (0 - 2) H Urine Squamous Epithelial Cells Few /LPF (NONE/OCC) Urine Calcium Oxalate Crystals Few /LPF (NONE) Urine Amorphous Sediment Few /LPF (NONE) H Urine Bacteria Moderate /HPF (NONE) H White Blood Count 24.9 K/UL (4.8-10.8) *H Red Blood Count 3.48 M/UL (4.20-5.40) L Hemoglobin 9.3 G/DL (12.0-16.0) L Hematocrit 29.0 % (37.0-47.0) L Mean Corpuscular Volume 83 FL (80-99) Mean Corpuscular Hemoglobin 26.8 PG (27.0-31.0) L Mean Corpuscular Hemoglobin Concent 32.2 G/DL (32.0-36.0) Red Cell Distribution Width 18.5 % (11.6-14.8) H Platelet Count 264 K/UL (150-450) Mean Platelet Volume 7.5 FL (6.5-10.1) Neutrophils (%) (Auto) % (45.0-75.0) Lymphocytes (%) (Auto) % (20.0-45.0) Monocytes (%) (Auto) % (1.0-10.0) Eosinophils (%) (Auto) % (0.0-3.0) Basophils (%) (Auto) % (0.0-2.0) Differential Total Cells Counted 100 Neutrophils % (Manual) 88 % (45-75) H Lymphocytes % (Manual) 4 % (20-45) L Monocytes % (Manual) 2 % (1-10) Eosinophils % (Manual) 0 % (0-3) Basophils % (Manual) 0 % (0-2) Band Neutrophils 6 % (0-8) Nucleated Red Blood Cells 1 /100 WBC Platelet Estimate Adequate Platelet Morphology Normal Hypochromasia 1+ Anisocytosis 2+ Target Cells 1+ Sodium Level 148 mEQ/L (135-145) H Potassium Level 2.6 mEQ/L (3.4-4.9) *L Chloride Level 111 mEQ/L (98-107) H Carbon Dioxide Level 22 mEQ/L (20-30) Anion Gap 15 (5-15) Blood Urea Nitrogen 43 mg/dL (7-23) H Creatinine 0.9 mg/dL (0.5-0.9) Estimat Glomerular Filtration Rate mL/min (>60) Glucose Level 187 mg/dL (74-106) H Hemoglobin A1c 4.8 % (< 6.0) Uric Acid 9.8 mg/dL (3.0-7.5) H Calcium Level 12.9 mg/dL (8.6-10.2) H Phosphorus Level 0.7 mg/dL (2.5-4.8) *L Magnesium Level 1.6 mg/dL (1.7-2.5) L Total Bilirubin 0.7 mg/dL (0.0-1.2) Gamma Glutamyl Transpeptidase 75 U/L (5-36) H Aspartate Amino Transf (AST/SGOT) 18 U/L (5-40) Alanine Aminotransferase (ALT/SGPT) 26 U/L (3-33) Alkaline Phosphatase 129 U/L (35-104) H Total Creatine Kinase 15 U/L (26-140) L C-Reactive Protein, Quantitative 27.6 mg/dL (< 0.5) H Pro-B-Type Natriuretic Peptide 52180 pg/mL (0-450) H Total Protein 4.7 g/dL (6.6-8.7) L Albumin 2.0 g/dL (3.5-5.2) L Globulin 2.7 g/dL Albumin/Globulin Ratio 0.7 (1.0-2.7) L Height (Feet): 5 Height (Inches): 5.00 Weight (Pounds): 140 Medications Current Medications Medications (Trade) Dose Ordered Sig/David Route PRN Reason Start Time Stop Time Status Last Admin Dose Admin Acetaminophen (Tylenol) 650 mg Q4H PRN ORAL fever 12/12/16 17:45 01/11/17 17:44 Albuterol/ Ipratropium (DuoNeb 0.5-3(2.5)mg/3ml) 3 ml Q4H PRN HHN Shortness of Breath 12/12/16 17:45 12/17/16 17:44 Calcitonin [place] (Miacalcin) 1 sprays DAILY NASAL 12/13/16 10:00 01/12/17 09:59 12/13/16 10:41 Collagenase (Santyl) 1 applic DAILY TOPIC 12/14/16 13:00 01/13/17 12:59 Dextrose/Sodium Chloride (D5 0.45% NS) 1,000 ml @ 100 mls/hr Q10H IV 12/12/16 19:30 01/11/17 19:29 12/13/16 06:21 Docusate Sodium (Colace) 100 mg TWICE A DAY ORAL 12/12/16 20:50 01/11/17 20:49 12/12/16 20:54 Heparin Sodium (Porcine) (Heparin 5000 units/ml) 5,000 units EVERY 12 HOURS SUBQ 12/12/16 22:00 01/11/17 21:59 12/13/16 10:47 Morphine Sulfate (Morphine Sulfate) 2 mg Q4H PRN IVP Moderate Pain (Pain Scale 4-6) 12/12/16 17:45 12/19/16 17:44 Nitroglycerin 0.4 mg 0.4 mg Q5M PRN SL Prn Chest Pain 12/12/16 17:45 01/11/17 17:44 Ondansetron HCl (Zofran) 4 mg Q6H PRN IVP Nausea & Vomiting 12/12/16 17:45 01/11/17 17:44 Pantoprazole (Protonix) 40 mg DAILY IVP 12/13/16 09:00 01/12/17 08:59 12/13/16 10:42 Phosphorus (Phospha 250 Neutral) 500 mg THREE TIMES A DAY ORAL 12/13/16 10:00 01/12/17 09:59 Piperacillin Sod/ Tazobactam Sod/ Dextrose (Zosyn/D5W) 110 ml @ 27.5 mls/hr EVERY 8 HOURS IVPB 12/13/16 14:00 12/18/16 13:59 12/13/16 14:31 Polyethylene Glycol (Miralax) 17 gm DAILYPRN PRN ORAL Constipation 12/12/16 17:45 01/11/17 17:44 Potassium Chloride 20 meq 20 meq TWICE A DAY ORAL 12/13/16 10:00 12/14/16 09:59 Temazepam (Restoril) 15 mg HSPRN PRN ORAL Insomnia 12/12/16 17:45 12/19/16 17:44 Vancomycin HCl 1 ea 1 ea DAILY PRN MISC PER RX PROTOCOL 12/12/16 21:15 01/11/17 21:14 Vancomycin HCl/ Dextrose (Vancomycin/D5W) 275 ml @ 183.708 mls/hr Q24H IVPB 12/14/16 00:00 12/19/16 00:00 Assessment/Plan Assessment/Plan Patient with large necrotic sacral pressure ulcer. This will need surgical debridement. Will in all likelihood be stage 4 after debridement. She also likely has osteomyelitis and bone biopsy and culture will be taken if bone is exposed. Need medical clearance prior to surgery. Will schedule surgery for next 24-48 hrs based ion clearance. Discussed with daughter that the debridement is necessary to prevent worsening of the ulcer and possible systemic infection. Also discussed that the prognosis for healing the ulcer is poor given the size, patient's low albumin, and age as well as other comorbidities. All questions answered. KIARA LOPES Dec 13, 2016 19:46
[2016-12-13 20:00] VITALS: BP 105/57
--- NOTE | 2016-12-13 20:28 | Consultation ---
DATE OF CONSULTATION: 12/13/2016 INFECTIOUS DISEASE CONSULTATION CONSULTING PHYSICIAN: Anmol Hicks M.D. REFERRING PHYSICIAN: Titi Cruz M.D. REASON FOR CONSULTATION: Evaluation of the patient for sepsis, wound infection, and antibiotic management. HISTORY OF PRESENT ILLNESS: The patient is an 86-year-old female with multiple medical problems as listed below, who was admitted for sepsis and altered level of consciousness. The patient was found to have leukocytosis. Also the patient has a very malodorous wound on the back. Infectious Disease consultation has been requested for further evaluation of the patient's antibiotic management. PAST MEDICAL HISTORY: 1. Hypertension. 2. Diabetes. 3. Peripheral vascular disease. 4. History of CAD. 5. Paroxysmal atrial fibrillation. 6. History of right lower extremity DVT. 7. History of anemia. 8. Arthritis. 9. History of renal insufficiency. FAMILY HISTORY: Noncontributory. REVIEW OF SYSTEMS: Unobtainable. MEDICATIONS: Vancomycin and cefepime. PHYSICAL EXAMINATION: VITAL SIGNS: Temperature 96.1, pulse 86, respiratory rate 18, blood pressure 103/51, and respiratory rate 18. HEENT: Mild pale conjunctivae. No icterus. NECK: No lymphadenopathy. CHEST: Coarse breathing sounds. HEART: S1 and S2. ABDOMEN: Soft. EXTREMITIES: The patient has an unstageable decubitus of the left lower extremity. SKIN: The patient has unstageable decubitus of the sacral area with malodorous discharge. LABORATORY DATA: White blood cell count 24.5, hemoglobin 9.3, and platelets 264,000. UA shows 10 to 15 white blood cells and 0 to 2 red blood cells. BUN 43 and creatinine 0.9. ALT and AST unremarkable. Alkaline phosphatase 129. Urine culture is pending. Blood culture is pending. ASSESSMENT: The patient is an 86-year-old female with multiple medical problems, who was admitted to this medical center with altered level of consciousness. The patient was found to have sepsis. The main source of infection appears to be sacral wound, probably underlying abscess that needs I and D. Also, it is more of possible bacterial urinary tract infection. PLAN: 1. We will continue the patient on IV vancomycin. Change cefepime to Zosyn. 2. Monitor CBC. 3. Monitor BMP. 4. Monitor cultures (blood, urine, and wound). 5. We might recommend surgical evaluation for debridement of the wound. Thank you, Dr. Cruz and Dr. Gonzalez, for allowing me to participate in the care of this patient. I will follow the patient with you during this hospitalization. Anmol Hicks M.D. DR: JUSTUS JOB#: [id number] CC:
--- NOTE | 2016-12-13 23:18 | History and Physical Report ---
DATE OF ADMISSION: 12/12/2016 CHIEF COMPLAINT: The patient is an 86-year-old female, who presents with chief complaint of generalized weakness and decreased oral intake for two days. HISTORY OF PRESENT ILLNESS: This began two days prior to admission. The patient began to refuse meals. The patient also became increasingly weak. The patient was apparently seen by the wound care nurse who told them that her decubitus ulcer became infected. The patient became increasingly weak. Family called the paramedics. The patient was transported to [facility] emergency room. The patient was admitted for dysphagia, generalized weakness, and probable sepsis. PAST MEDICAL HISTORY: Significant for: 1. Hypertension. 2. Diabetes type 2. 3. Peripheral vascular disease. 4. Coronary artery disease, status post non-ST elevated myocardial infarction. 5. Paroxysmal atrial fibrillation. 6. History of right lower extremity deep venous thrombosis, on Xarelto. 7. Anemia. 8. Arthritis. 9. History of renal failure. PAST SURGICAL HISTORY: Significant for Biotronik pacemaker implantation. CURRENT MEDICATIONS: 1. Amlodipine 5 mg one tablet p.o. daily. 2. Sensipar 30 mg one tablet p.o. daily. 3. Nexium 40 mg one tablet p.o. daily. 4. Lasix 20 mg one tablet p.o. daily. 5. Lisinopril 20 mg one tablet p.o. twice daily. 6. Metoprolol 50 mg one tablet p.o. twice daily. 7. Mirtazapine 15 mg one tablet p.o. at bedtime. 8. Multivitamin p.o. daily. 9. Nitroglycerin 0.4 mg sublingual p.r.n. 10. Pravastatin 20 mg 2 tablets p.o. at bedtime. 11. Ranexa 500 mg one tablet p.o. daily. 12. Xarelto 15 mg one tablet p.o. daily. 13. Vitamin C one tablet p.o. daily. ALLERGIES: No known drug allergies. SOCIAL HISTORY: The patient lives with several family members who serve as her caregiver. The patient's daughter, Shanda, is apparently the power of criminal defense attorney. The patient denies tobacco or alcohol use. REVIEW OF SYSTEMS: Constitutional: The patient denies weight loss or weight gain. The patient denies fevers or chills. HEENT: The patient denies ear or throat pain. The patient denies headache. Cardiovascular: The patient denies palpitation or chest pain. Chest: Denies wheeze or shortness of breath. Abdomen: The patient denies nausea, vomiting, diarrhea, or constipation. Genitourinary: The patient denies dysuria or increased frequency of urination. Neuromuscular: The patient complains of generalized weakness. The patient denies seizures. PHYSICAL EXAMINATION: VITAL SIGNS: Temperature 96.1, respirations 18, pulse 64, and blood pressure 103/51. GENERAL: The patient is a thin-appearing female, who is sleeping. HEENT: Pupils are equal and responsive to light and accommodation. Extraocular movements are intact. NECK: Supple without lymphadenopathy. CHEST: Lungs are clear to auscultation bilaterally without wheezes or rales. CARDIOVASCULAR: Regular rate. S1 and S2 are normal without murmurs, rubs, or gallops. ABDOMEN: Soft, nontender, and nondistended. Positive bowel sounds. No evidence of hepatosplenomegaly. Currently no rebound or guarding noted. EXTREMITIES: Negative for clubbing, cyanosis, or edema. RECTAL: Refused. GENITAL: Refused. NEUROLOGIC: Unable to assess. LABORATORY STUDIES: WBC elevated at 29.5, hemoglobin 10.4, hematocrit 30.5, and platelets 309,000. Sodium 148, potassium 3.6, chloride 111, CO2 of 22, BUN 43, creatinine 0.9, and glucose 187. BNP elevated at 12,492. ASSESSMENT: This is an 86-year-old female: 1. Probable sepsis. 2. Leukocytosis. 3. Urinary tract infection. 4. Dysphagia. 5. Hypokalemia. 6. Hypertension. 7. Diabetes type 2. 8. Coronary artery disease. 9. Atrial fibrillation. 10. Anemia. 11. Sacral decubitus ulcer. 12. Deep venous thrombosis of the right leg. 13. Anemia. 14. Peripheral vascular disease. TREATMENT: 1. Hypokalemia. The patient is currently receiving potassium supplementation. A nephrology consultation has been obtained with Dr. Leone. 2. Urinary tract infection. Urine culture is pending. The patient has been placed empirically on vancomycin and cefepime. An infectious disease consultation was obtained with Dr. Hicks. 3. Leukocytosis, probably secondary to sepsis. 4. Sepsis secondary to above. An infectious diseases consultation was obtained with Dr. Hicks. The patient has been started empirically on vancomycin and cefepime. 5. Renal failure as above. A nephrology consultation has been obtained with Dr. Leone. 6. Dysphagia. A gastroenterology consultation was obtained with Dr. Miles. The patient may require a percutaneous endoscopic gastrostomy placement during this hospitalization. 7. Hypertension. The patient is currently hypotensive. Hold amlodipine as above. 8. Diabetes type 2. The patient is currently stable on a NovoLog sliding scale. 9. Coronary artery disease. 10. Paroxysmal atrial fibrillation. 11. Anemia. 12. Sacral decubitus ulcer. This may be the source of sepsis. As above, the patient has been started on vancomycin and cefepime. Wound care consultation has been obtained. 13. Deep venous thrombosis of right leg. Continue Xarelto as above. 14. Peripheral vascular disease. Bradley Holland M.D. DR: ADEOLA JOB#: [id number] CC:
[2016-12-14] VITALS (12 sets, daily range): BP systolic 93–158; BP diastolic 56–98
[2016-12-14] MEDS: Vancomycin 750mg/D5W 275ml IVPB SCH ×2 (00:38)
[2016-12-14] MEDS: D5 1/2NS 1,000 ML IV SCH (02:50)
[2016-12-14] MEDS: Piperacillin/Tazobactam 4.5 GM in D5W 110 ML IVPB SCH ×3 (06:20→21:57)
[2016-12-14 06:44] LABS: MEAN CORPUSCULAR HEMOGLOBIN 27.9 PG (27.0-31.0); MEAN CORPUSCULAR VOLUME 85 FL (80-99); MEAN PLATELET VOLUME 7.6 FL (6.5-10.1); PLATELET COUNT 225 K/UL (150-450); RED BLOOD COUNT 3.28 M/UL (4.20-5.40); RED CELL DISTRIBUTION WIDTH 19.2 % (11.6-14.8)
[2016-12-14 06:53] LABS: WHITE BLOOD COUNT 22.1 K/UL (4.8-10.8)
[2016-12-14 07:18] LABS: FERRITIN 1615 ng/mL (13-150)
[2016-12-14 07:19] LABS: ALANINE AMINOTRANSFERASE 18 U/L (3-33); ALBUMIN/GLOBULIN RATIO 0.5 (1.0-2.7); ANION GAP 15 (5-15); ASPARTATE AMINO TRANSFERASE 11 U/L (5-40); CALCIUM 11.7 mg/dL (8.6-10.2); CARBON DIOXIDE 23 mEQ/L (20-30); CHLORIDE 112 mEQ/L (98-107); CREATININE 0.9 mg/dL (0.5-0.9); CRP QUANT 23.6 mg/dL (< 0.5); HEMOLYSIS 5; MAGNESIUM 1.5 mg/dL (1.7-2.5); PHOSPHORUS 2.3 mg/dL (2.5-4.8); POTASSIUM 3.3 mEQ/L (3.4-4.9); SODIUM 150 mEQ/L (135-145); URIC ACID 8.8 mg/dL (3.0-7.5)
[2016-12-14 07:20] LABS: HEMOLYSIS 7; IRON 19 ug/dL (37-145); TOTAL IRON BINDING CAPACITY 86 ug/dL (250-400)
[2016-12-14 07:36] LABS: TROPONIN I < 0.30 ng/mL (<=0.30)
[2016-12-14 07:51] LABS: ANISOCYTOSIS 2+; BAND NEUTROPHILS % (MANUAL) 3 % (0-8); BASOPHILS % (MANUAL) 0 % (0-2); EOSINOPHILS % (MANUAL) 0 % (0-3); HYPOCHROMASIA 2+; LYMPHOCYTES % (MANUAL) 4 % (20-45); NEUTROPHILS % (MANUAL) 91 % (45-75); NUCLEATED RED BLOOD CELLS 2 /100 WBC; PLATELET ESTIMATE ADEQUATE; PLATELET MORPHOLOGY NORMAL; SPHEROCYTES 1+; TOTAL CELLS COUNTED 100
[2016-12-14] MEDS: Heparin 5000 units/ml inj SUBQ SCH ×2 (09:52→21:59)
[2016-12-14] MEDS: Phospha 250 Neutral tab ORAL SCH (09:53)
[2016-12-14] MEDS: Docusate 100mg cap ORAL SCH ×2 (09:53→17:57)
[2016-12-14] MEDS: Pantoprazole Inj IVP SCH (10:02)
--- NOTE | 2016-12-14 10:05 | Infectious Diseases Prog Note ---
Assessment/Plan Assessment/Plan A: The patient is an 86-year-old female Leukocytosis improving Sepsis wound infection Probable UTI ALOC HTN DM PVD CAD Paroxysmal atrial fibrillation. History of right lower extremity DVT. Anemia PLAN: continue the patient on IV vancomycin. and Zosyn d# 2 Monitor CBC. Monitor BMP. Monitor cultures (blood, urine, and wound). recommend surgical evaluation for debridement of the Sacral wound Subjective Allergies: Coded Allergies: NO KNOWN ALLERGIES (Unverified Allergy, Unknown, 09/05/15) Objective Vital Signs Last 24 Hour Vital Signs Date Time Temp Pulse Resp B/P Pulse Ox O2 Delivery O2 Flow Rate FiO2 12/14/16 08:25 96.6 63 18 120/66 95 Room Air 12/14/16 07:45 67 19 Room Air 21 12/14/16 04:01 97.2 65 18 105/75 96 Room Air 12/14/16 04:00 65 12/14/16 00:01 97.9 84 17 93/56 94 Room Air 12/14/16 00:00 64 12/13/16 20:00 71 12/13/16 20:00 97.5 72 20 105/57 100 Room Air 12/13/16 19:31 66 18 Room Air 21 12/13/16 16:00 98.0 79 20 102/61 94 Room Air 12/13/16 16:00 71 12/13/16 12:00 73 12/13/16 11:16 96.3 94 18 131/58 95 Room Air Height (Feet): 5 Height (Inches): 5.00 Weight (Pounds): 140 Microbiology Date/Time Source Procedure Growth Status 12/12/16 16:15 Blood Blood Culture - Preliminary NO GROWTH AFTER 24 HOURS Resulted 12/12/16 16:10 Blood Blood Culture - Preliminary NO GROWTH AFTER 24 HOURS Resulted 12/13/16 05:00 Indwelling Cath Urine Culture - Preliminary NO GROWTH AFTER 24 HOURS Resulted 12/12/16 18:37 Urine,Clean Catch Urine Culture - Preliminary Gram Negative Bacillus 1 Resulted 12/12/16 16:16 Rectum VRE Culture - Final NO VANCOMYCIN RESISTANT ENTEROCOCCUS ... Complete Laboratory Tests Test 12/14/16 06:15 White Blood Count 22.1 K/UL (4.8-10.8) *H Red Blood Count 3.28 M/UL (4.20-5.40) L Hemoglobin 9.1 G/DL (12.0-16.0) L Hematocrit 27.7 % (37.0-47.0) L Mean Corpuscular Volume 85 FL (80-99) Mean Corpuscular Hemoglobin 27.9 PG (27.0-31.0) Mean Corpuscular Hemoglobin Concent 33.0 G/DL (32.0-36.0) Red Cell Distribution Width 19.2 % (11.6-14.8) H Platelet Count 225 K/UL (150-450) Mean Platelet Volume 7.6 FL (6.5-10.1) Neutrophils (%) (Auto) % (45.0-75.0) Lymphocytes (%) (Auto) % (20.0-45.0) Monocytes (%) (Auto) % (1.0-10.0) Eosinophils (%) (Auto) % (0.0-3.0) Basophils (%) (Auto) % (0.0-2.0) Differential Total Cells Counted 100 Neutrophils % (Manual) 91 % (45-75) H Lymphocytes % (Manual) 4 % (20-45) L Monocytes % (Manual) 2 % (1-10) Eosinophils % (Manual) 0 % (0-3) Basophils % (Manual) 0 % (0-2) Band Neutrophils 3 % (0-8) Nucleated Red Blood Cells 2 /100 WBC Platelet Estimate Adequate Platelet Morphology Normal Hypochromasia 2+ Anisocytosis 2+ Spherocytes 1+ Sodium Level 150 mEQ/L (135-145) H Potassium Level 3.3 mEQ/L (3.4-4.9) L Chloride Level 112 mEQ/L (98-107) H Carbon Dioxide Level 23 mEQ/L (20-30) Anion Gap 15 (5-15) Blood Urea Nitrogen 43 mg/dL (7-23) H Creatinine 0.9 mg/dL (0.5-0.9) Estimat Glomerular Filtration Rate mL/min (>60) Glucose Level 188 mg/dL (74-106) H Uric Acid 8.8 mg/dL (3.0-7.5) H Calcium Level 11.7 mg/dL (8.6-10.2) H Phosphorus Level 2.3 mg/dL (2.5-4.8) L Magnesium Level 1.5 mg/dL (1.7-2.5) L Iron Level 19 ug/dL (37-145) L Total Iron Binding Capacity 86 ug/dL (250-400) L Percent Iron Saturation 22 % (15-50) Unsaturated Iron Binding 67 ug/dL (112-346) L Ferritin 1615 ng/mL (13-150) H Total Bilirubin 0.6 mg/dL (0.0-1.2) Gamma Glutamyl Transpeptidase 53 U/L (5-36) H Aspartate Amino Transf (AST/SGOT) 11 U/L (5-40) Alanine Aminotransferase (ALT/SGPT) 18 U/L (3-33) Alkaline Phosphatase 120 U/L (35-104) H Troponin I < 0.30 ng/mL (<=0.30) C-Reactive Protein, Quantitative 23.6 mg/dL (< 0.5) H Pro-B-Type Natriuretic Peptide 9562 pg/mL (0-450) H Total Protein 5.0 g/dL (6.6-8.7) L Albumin 1.7 g/dL (3.5-5.2) L Globulin 3.3 g/dL Albumin/Globulin Ratio 0.5 (1.0-2.7) L Prealbumin Pending Current Medications Medications (Trade) Dose Ordered Sig/David Route PRN Reason Start Time Stop Time Status Last Admin Dose Admin Acetaminophen (Tylenol) 650 mg Q4H PRN ORAL fever 12/12/16 17:45 01/11/17 17:44 Albuterol/ Ipratropium (DuoNeb 0.5-3(2.5)mg/3ml) 3 ml Q4H PRN HHN Shortness of Breath 12/12/16 17:45 12/17/16 17:44 Calcitonin [place] 1 sprays 1 sprays DAILY NASAL 12/13/16 10:00 01/12/17 09:59 12/14/16 09:45 Collagenase (Santyl) 1 applic DAILY TOPIC 12/14/16 13:00 01/13/17 12:59 Dextrose/Sodium Chloride (D5 0.45% NS) 1,000 ml @ 100 mls/hr Q10H IV 12/12/16 19:30 01/11/17 19:29 12/14/16 02:50 Docusate Sodium (Colace) 100 mg TWICE A DAY ORAL 12/12/16 20:50 01/11/17 20:49 12/12/16 20:54 Heparin Sodium (Porcine) (Heparin 5000 units/ml) 5,000 units EVERY 12 HOURS SUBQ 12/12/16 22:00 01/11/17 21:59 12/14/16 09:52 Morphine Sulfate (Morphine Sulfate) 2 mg Q4H PRN IVP Moderate Pain (Pain Scale 4-6) 12/12/16 17:45 12/19/16 17:44 Nitroglycerin 0.4 mg 0.4 mg Q5M PRN SL Prn Chest Pain 12/12/16 17:45 01/11/17 17:44 Ondansetron HCl (Zofran) 4 mg Q6H PRN IVP Nausea & Vomiting 12/12/16 17:45 01/11/17 17:44 Pantoprazole (Protonix) 40 mg DAILY IVP 12/13/16 09:00 01/12/17 08:59 12/13/16 10:42 Phosphorus (Phospha 250 Neutral) 500 mg THREE TIMES A DAY ORAL 12/13/16 10:00 01/12/17 09:59 Piperacillin Sod/ Tazobactam Sod/ Dextrose (Zosyn/D5W) 110 ml @ 27.5 mls/hr EVERY 8 HOURS IVPB 12/13/16 14:00 12/18/16 13:59 12/14/16 06:20 Polyethylene Glycol (Miralax) 17 gm DAILYPRN PRN ORAL Constipation 12/12/16 17:45 01/11/17 17:44 Temazepam (Restoril) 15 mg HSPRN PRN ORAL Insomnia 12/12/16 17:45 12/19/16 17:44 Vancomycin HCl 1 ea 1 ea DAILY PRN MISC PER RX PROTOCOL 12/12/16 21:15 01/11/17 21:14 Vancomycin HCl/ Dextrose (Vancomycin/D5W) 275 ml @ 183.708 mls/hr Q24H IVPB 12/14/16 00:00 12/19/16 00:00 12/14/16 00:38 RADHA BAILON M.D. Dec 14, 2016 10:05
[2016-12-14 10:09] LABS: OTHERS PATHOLOGIST COMMENT
--- NOTE | 2016-12-14 10:45 | Internal Med Progress Note ---
Subjective Date of Service: Dec 14, 2016 Physician Name Davis,Ricky Attending Physician Titi Crzu MD Current Medications Medications (Trade) Dose Ordered Sig/David Route PRN Reason Start Time Stop Time Status Last Admin Dose Admin Acetaminophen (Tylenol) 650 mg Q4H PRN ORAL fever 12/12/16 17:45 01/11/17 17:44 Albuterol/ Ipratropium (DuoNeb 0.5-3(2.5)mg/3ml) 3 ml Q4H PRN HHN Shortness of Breath 12/12/16 17:45 12/17/16 17:44 Calcitonin [place] 1 sprays 1 sprays DAILY NASAL 12/13/16 10:00 01/12/17 09:59 12/14/16 09:45 Collagenase (Santyl) 1 applic DAILY TOPIC 12/14/16 13:00 01/13/17 12:59 Dextrose/Sodium Chloride (D5 0.45% NS) 1,000 ml @ 100 mls/hr Q10H IV 12/12/16 19:30 01/11/17 19:29 12/14/16 02:50 Docusate Sodium (Colace) 100 mg TWICE A DAY ORAL 12/12/16 20:50 01/11/17 20:49 12/12/16 20:54 Heparin Sodium (Porcine) (Heparin 5000 units/ml) 5,000 units EVERY 12 HOURS SUBQ 12/12/16 22:00 01/11/17 21:59 12/14/16 09:52 Morphine Sulfate (Morphine Sulfate) 2 mg Q4H PRN IVP Moderate Pain (Pain Scale 4-6) 12/12/16 17:45 12/19/16 17:44 Nitroglycerin 0.4 mg 0.4 mg Q5M PRN SL Prn Chest Pain 12/12/16 17:45 01/11/17 17:44 Ondansetron HCl (Zofran) 4 mg Q6H PRN IVP Nausea & Vomiting 12/12/16 17:45 01/11/17 17:44 Pantoprazole (Protonix) 40 mg DAILY IVP 12/13/16 09:00 01/12/17 08:59 12/14/16 10:02 Phosphorus (Phospha 250 Neutral) 500 mg THREE TIMES A DAY ORAL 12/13/16 10:00 01/12/17 09:59 Piperacillin Sod/ Tazobactam Sod/ Dextrose (Zosyn/D5W) 110 ml @ 27.5 mls/hr EVERY 8 HOURS IVPB 12/13/16 14:00 12/18/16 13:59 12/14/16 06:20 Polyethylene Glycol (Miralax) 17 gm DAILYPRN PRN ORAL Constipation 12/12/16 17:45 01/11/17 17:44 Temazepam (Restoril) 15 mg HSPRN PRN ORAL Insomnia 12/12/16 17:45 12/19/16 17:44 Vancomycin HCl 1 ea 1 ea DAILY PRN MISC PER RX PROTOCOL 12/12/16 21:15 01/11/17 21:14 Vancomycin HCl/ Dextrose (Vancomycin/D5W) 275 ml @ 183.708 mls/hr Q24H IVPB 12/14/16 00:00 12/19/16 00:00 12/14/16 00:38 Allergies: Coded Allergies: NO KNOWN ALLERGIES (Unverified Allergy, Unknown, 09/05/15) ROS Limited/Unobtainable: Yes Subjective 86 YO F admitted with sepsis. Now necrotic decubitus ulcer requiring debridement-await cardiology clearance for surgery. Also UTI. Cover for Int Med-Dr Cruz. Objective Last Vital Signs Date Time Temp Pulse Resp B/P Pulse Ox O2 Delivery O2 Flow Rate FiO2 12/14/16 08:25 96.6 63 18 120/66 95 Room Air 12/14/16 07:45 21 General Appearance: mild distress, lethargic, thin EENT: PERRL/EOMI, normal ENT inspection Neck: non-tender, normal alignment Cardiovascular: normal peripheral pulses, no gallop/murmur, no JVD, irregularly irregular Respiratory/Chest: chest wall non-tender, crackles/rales, rhonchi - bilaterally , expiratory wheezing Abdomen: normal bowel sounds, non tender, soft, no organomegaly, no mass Extremities: normal range of motion, non-tender Skin: normal pigmentation, warm/dry Laboratory Tests Test 12/14/16 06:15 White Blood Count 22.1 K/UL (4.8-10.8) *H Red Blood Count 3.28 M/UL (4.20-5.40) L Hemoglobin 9.1 G/DL (12.0-16.0) L Hematocrit 27.7 % (37.0-47.0) L Mean Corpuscular Volume 85 FL (80-99) Mean Corpuscular Hemoglobin 27.9 PG (27.0-31.0) Mean Corpuscular Hemoglobin Concent 33.0 G/DL (32.0-36.0) Red Cell Distribution Width 19.2 % (11.6-14.8) H Platelet Count 225 K/UL (150-450) Mean Platelet Volume 7.6 FL (6.5-10.1) Neutrophils (%) (Auto) % (45.0-75.0) Lymphocytes (%) (Auto) % (20.0-45.0) Monocytes (%) (Auto) % (1.0-10.0) Eosinophils (%) (Auto) % (0.0-3.0) Basophils (%) (Auto) % (0.0-2.0) Differential Total Cells Counted 100 Neutrophils % (Manual) 91 % (45-75) H Lymphocytes % (Manual) 4 % (20-45) L Monocytes % (Manual) 2 % (1-10) Eosinophils % (Manual) 0 % (0-3) Basophils % (Manual) 0 % (0-2) Band Neutrophils 3 % (0-8) Nucleated Red Blood Cells 2 /100 WBC Platelet Estimate Adequate Platelet Morphology Normal Hypochromasia 2+ Anisocytosis 2+ Spherocytes 1+ Sodium Level 150 mEQ/L (135-145) H Potassium Level 3.3 mEQ/L (3.4-4.9) L Chloride Level 112 mEQ/L (98-107) H Carbon Dioxide Level 23 mEQ/L (20-30) Anion Gap 15 (5-15) Blood Urea Nitrogen 43 mg/dL (7-23) H Creatinine 0.9 mg/dL (0.5-0.9) Estimat Glomerular Filtration Rate mL/min (>60) Glucose Level 188 mg/dL (74-106) H Uric Acid 8.8 mg/dL (3.0-7.5) H Calcium Level 11.7 mg/dL (8.6-10.2) H Phosphorus Level 2.3 mg/dL (2.5-4.8) L Magnesium Level 1.5 mg/dL (1.7-2.5) L Iron Level 19 ug/dL (37-145) L Total Iron Binding Capacity 86 ug/dL (250-400) L Percent Iron Saturation 22 % (15-50) Unsaturated Iron Binding 67 ug/dL (112-346) L Ferritin 1615 ng/mL (13-150) H Total Bilirubin 0.6 mg/dL (0.0-1.2) Gamma Glutamyl Transpeptidase 53 U/L (5-36) H Aspartate Amino Transf (AST/SGOT) 11 U/L (5-40) Alanine Aminotransferase (ALT/SGPT) 18 U/L (3-33) Alkaline Phosphatase 120 U/L (35-104) H Troponin I < 0.30 ng/mL (<=0.30) C-Reactive Protein, Quantitative 23.6 mg/dL (< 0.5) H Pro-B-Type Natriuretic Peptide 9562 pg/mL (0-450) H Total Protein 5.0 g/dL (6.6-8.7) L Albumin 1.7 g/dL (3.5-5.2) L Globulin 3.3 g/dL Albumin/Globulin Ratio 0.5 (1.0-2.7) L Prealbumin Pending Microbiology Date/Time Source Procedure Growth Status 12/12/16 16:15 Blood Blood Culture - Preliminary NO GROWTH AFTER 24 HOURS Resulted 12/12/16 16:10 Blood Blood Culture - Preliminary NO GROWTH AFTER 24 HOURS Resulted 12/13/16 05:00 Indwelling Cath Urine Culture - Preliminary NO GROWTH AFTER 24 HOURS Resulted 12/12/16 18:37 Urine,Clean Catch Urine Culture - Preliminary Gram Negative Bacillus 1 Resulted 12/12/16 16:16 Rectum VRE Culture - Final NO VANCOMYCIN RESISTANT ENTEROCOCCUS ... Complete Intake and Output 12/13/16 12/14/16 19:00 07:00 Intake Total 652.5 ml 1085.000 ml Output Total 600 ml Balance 652.5 ml 485.000 ml Intake IV Total 652.5 ml 1085.000 ml Output Urine Total 600 ml Assessment/Plan Problem List: (1) Dysphagia Assessment & Plan: Await PEG-See GI note-Dr Miles (2) Hypokalemia Assessment & Plan: See nephrology note. (3) Hypernatremia (4) UTI (urinary tract infection) Assessment & Plan: Gram neg tanya. Await ID and sensitivity. Cont zosyn and vanco per ID. (5) Severe malnutrition (6) Renal failure Assessment & Plan: Followed by nephrology - Dr Leone- see note. (7) Sepsis (8) Sacral decubitus ulcer, stage IV Assessment & Plan: Debridement scheduled today 12/14/16. Needs cardiology clearance for surgery-Dr Davenport aware. Cont zosyn and vanco per ID (9) Hypertension (10) Coronary artery disease (11) Atrial fibrillation (12) History of DVT (deep vein thrombosis) (13) Anemia (14) Diabetes mellitus Assessment & Plan: Hyperglycemia. Add novolog sliding scale. Status: not improved RICKY DAVIS Dec 14, 2016 10:45
--- NOTE | 2016-12-14 11:50 | GI Progress Note ---
Assessment/Plan Problems: (1) Diabetes mellitus ICD Codes: E11.9 - Type 2 diabetes mellitus without complications SNOMED: 67875323 (2) Dysphagia ICD Codes: R13.10 - Dysphagia, unspecified SNOMED: 78004517, 031298130 (3) Encounter for PEG (percutaneous endoscopic gastrostomy) ICD Codes: Z43.1 - Encounter for attention to gastrostomy SNOMED: 047559800, 241701881 (4) Severe malnutrition ICD Codes: E43 - Unspecified severe protein-calorie malnutrition SNOMED: 19818359 (5) Hypoalbuminemia ICD Codes: E88.09 - Other disorders of plasma-protein metabolism, not elsewhere classified SNOMED: 468965109 (6) Leukocytosis ICD Codes: D72.829 - Elevated white blood cell count, unspecified SNOMED: 867829328, 172925856 (7) Iron deficiency ICD Codes: E61.1 - Iron deficiency SNOMED: 12548617 Status: unchanged Status Narrative Discussed with Dr. Miles. Assessment/Plan PEG on hold for now >> unstable elevated WBC abx monitor H&H >> transfused prn PPI daily given history of severe gastritis iron panel >> unremarkable ST eval push PO bowel regime fu labs patient had EGD/colonoscopy last year 10/31. See full report below. Subjective Subjective limited Objective Last 24 Hour Vital Signs Date Time Temp Pulse Resp B/P Pulse Ox O2 Delivery O2 Flow Rate FiO2 12/14/16 08:25 96.6 63 18 120/66 95 Room Air 12/14/16 07:45 67 19 Room Air 12/14/16 04:01 97.2 65 18 105/75 96 Room Air 12/14/16 04:00 65 12/14/16 00:01 97.9 84 17 93/56 94 Room Air 12/14/16 00:00 64 12/13/16 20:00 71 12/13/16 20:00 97.5 72 20 105/57 100 Room Air 12/13/16 19:31 66 18 Room Air 21 12/13/16 16:00 98.0 79 20 102/61 94 Room Air 12/13/16 16:00 71 12/13/16 12:00 73 Intake and Output 12/13/16 12/14/16 19:00 07:00 Intake Total 652.5 ml 1085.000 ml Output Total 600 ml Balance 652.5 ml 485.000 ml Intake IV Total 652.5 ml 1085.000 ml Output Urine Total 600 ml Laboratory Tests Test 12/14/16 06:15 White Blood Count 22.1 K/UL (4.8-10.8) *H Red Blood Count 3.28 M/UL (4.20-5.40) L Hemoglobin 9.1 G/DL (12.0-16.0) L Hematocrit 27.7 % (37.0-47.0) L Mean Corpuscular Volume 85 FL (80-99) Mean Corpuscular Hemoglobin 27.9 PG (27.0-31.0) Mean Corpuscular Hemoglobin Concent 33.0 G/DL (32.0-36.0) Red Cell Distribution Width 19.2 % (11.6-14.8) H Platelet Count 225 K/UL (150-450) Mean Platelet Volume 7.6 FL (6.5-10.1) Neutrophils (%) (Auto) % (45.0-75.0) Lymphocytes (%) (Auto) % (20.0-45.0) Monocytes (%) (Auto) % (1.0-10.0) Eosinophils (%) (Auto) % (0.0-3.0) Basophils (%) (Auto) % (0.0-2.0) Differential Total Cells Counted 100 Neutrophils % (Manual) 91 % (45-75) H Lymphocytes % (Manual) 4 % (20-45) L Monocytes % (Manual) 2 % (1-10) Eosinophils % (Manual) 0 % (0-3) Basophils % (Manual) 0 % (0-2) Band Neutrophils 3 % (0-8) Nucleated Red Blood Cells 2 /100 WBC Platelet Estimate Adequate Platelet Morphology Normal Hypochromasia 2+ Anisocytosis 2+ Spherocytes 1+ Sodium Level 150 mEQ/L (135-145) H Potassium Level 3.3 mEQ/L (3.4-4.9) L Chloride Level 112 mEQ/L (98-107) H Carbon Dioxide Level 23 mEQ/L (20-30) Anion Gap 15 (5-15) Blood Urea Nitrogen 43 mg/dL (7-23) H Creatinine 0.9 mg/dL (0.5-0.9) Estimat Glomerular Filtration Rate mL/min (>60) Glucose Level 188 mg/dL (74-106) H Uric Acid 8.8 mg/dL (3.0-7.5) H Calcium Level 11.7 mg/dL (8.6-10.2) H Phosphorus Level 2.3 mg/dL (2.5-4.8) L Magnesium Level 1.5 mg/dL (1.7-2.5) L Iron Level 19 ug/dL (37-145) L Total Iron Binding Capacity 86 ug/dL (250-400) L Percent Iron Saturation 22 % (15-50) Unsaturated Iron Binding 67 ug/dL (112-346) L Ferritin 1615 ng/mL (13-150) H Total Bilirubin 0.6 mg/dL (0.0-1.2) Gamma Glutamyl Transpeptidase 53 U/L (5-36) H Aspartate Amino Transf (AST/SGOT) 11 U/L (5-40) Alanine Aminotransferase (ALT/SGPT) 18 U/L (3-33) Alkaline Phosphatase 120 U/L (35-104) H Troponin I < 0.30 ng/mL (<=0.30) C-Reactive Protein, Quantitative 23.6 mg/dL (< 0.5) H Pro-B-Type Natriuretic Peptide 9562 pg/mL (0-450) H Total Protein 5.0 g/dL (6.6-8.7) L Albumin 1.7 g/dL (3.5-5.2) L Globulin 3.3 g/dL Albumin/Globulin Ratio 0.5 (1.0-2.7) L Prealbumin Pending Height (Feet): 5 Height (Inches): 5.00 Weight (Pounds): 140 General Appearance: no apparent distress, thin Cardiovascular: normal rate Respiratory/Chest: normal breath sounds, no respiratory distress Abdominal Exam: normal bowel sounds, non tender, soft Objective DATE OF PROCEDURE: 10/23/2015 SURGEON: Ruben Miles M.D. PROCEDURE: Upper endoscopy with biopsy and colonoscopy with biopsy and polypectomy. INDICATION: Anemia, screening colonoscopy evaluation, abdominal pain, and GERD. SUMMARY OF FINDINGS: 1. Severe gastritis, status post biopsy. 2. Duodenal polyp, status post biopsy. 3. Inflammatory looking polyp in the antrum of the stomach, status post biopsy. 4. Paraesophageal hernia. 5. Two colonic polyp removed, see above for details. 6. Diverticulosis. 7. Internal hemorrhoids. Lyndsay Torres N.P. Dec 14, 2016 11:50
[2016-12-14] MEDS: NovoLOG Insulin Flexpen SUBQ SCH ×3 (12:12→21:00)
[2016-12-14] MEDS ORDERED: Potassium Phosphate 30 MM in NS 275 ML IV ONE (13:00)
[2016-12-14] MEDS ORDERED: Lidocaine 0.5% Epi 50 mL Vial ONE (13:22)
[2016-12-14] MEDS ORDERED: Bacitracin 50000 Units Vial ONE ×3 (13:22→15:11)
--- NOTE | 2016-12-14 13:32 | Pre-Procedure Note/Attestation ---
Pre-Procedure Note/Attestation Complete Prior to Procedure Planned Procedure: not applicable Procedure Narrative: Excisional debridement necrotic sacral ulcer, bone biopsy sacrum. Indications for Procedure Pre-Operative Diagnosis: Necrotic sacral pressure ulcer, osteomyelitis sacrum Attestation I attest that I discussed the nature of the procedure; its benefits; risks and complications; and alternatives (and the risks and benefits of such alternatives ), prior to the procedure, with the patient (or the patient's legal brand representative). I attest that, if there was a reasonable possibility of needing a blood transfusion, the patient (or the patient's legal brand representative) was given the [facility] standardized written summary, pursuant to the Donato Teresa Blood Safety Act ([place] Health and Safety Code # 1645, as amended). I attest that I re-evaluated the patient just prior to the surgery and that there has been no change in the patient's H&P, except as documented below: KIARA LOPES Dec 14, 2016 13:32
--- NOTE | 2016-12-14 13:32 | General Progress Note ---
Progress Note Progress Note 86 year old with multiple comorbidities, septic because of infected decubiti. she needs urgently debridement of her decubiti ulcers. She is stable to undergo debridement surgery. EVENS CASTELLON Dec 14, 2016 13:32
--- NOTE | 2016-12-14 13:44 | General Progress Note ---
Assessment/Plan Status: stable Assessment/Plan status: Acute renal failure- mainly prerenal improved HyperCalcemia- being treated Leukocytosis / sepsis, on antibiotics other conditions mentioned in PH: -History of anemia. -Hypertension. -Diabetes type 2. -History of coronary artery disease. -Renal failure. -Paroxysmal atrial fibrillation. -History of right lower extremity deep venous thrombosis. -Arthritis. -Alzheimer's dementia. -Pacemaker in situ. Plan: Hydrate- change IV to D5- Phos and K supplement now and as needed- Randolph- Monitor renal parameters- per orders- discussed with RN Subjective ROS Limited/Unobtainable: Yes Allergies: Coded Allergies: NO KNOWN ALLERGIES (Unverified Allergy, Unknown, 09/05/15) Objective Last 24 Hour Vital Signs Date Time Temp Pulse Resp B/P Pulse Ox O2 Delivery O2 Flow Rate FiO2 12/14/16 11:52 97.2 71 20 128/58 95 Room Air 12/14/16 08:25 96.6 63 18 120/66 95 Room Air 12/14/16 07:45 67 19 Room Air 21 12/14/16 04:01 97.2 65 18 105/75 96 Room Air 12/14/16 04:00 65 12/14/16 00:01 97.9 84 17 93/56 94 Room Air 12/14/16 00:00 64 12/13/16 20:00 71 12/13/16 20:00 97.5 72 20 105/57 100 Room Air 12/13/16 19:31 66 18 Room Air 21 12/13/16 16:00 98.0 79 20 102/61 94 Room Air 12/13/16 16:00 71 Intake and Output 12/13/16 12/14/16 19:00 07:00 Intake Total 652.5 ml 1085.000 ml Output Total 600 ml Balance 652.5 ml 485.000 ml Intake IV Total 652.5 ml 1085.000 ml Output Urine Total 600 ml Laboratory Tests 12/14/16 06:15: White Blood Count 22.1*H, Red Blood Count 3.28L, Hemoglobin 9.1L, Hematocrit 27.7L, Mean Corpuscular Volume 85, Mean Corpuscular Hemoglobin 27.9, Mean Corpuscular Hemoglobin Concent 33.0, Red Cell Distribution Width 19.2H, Platelet Count 225, Mean Platelet Volume 7.6, Neutrophils (%) (Auto) , Lymphocytes (%) (Auto) , Monocytes (%) (Auto) , Eosinophils (%) (Auto) , Basophils (%) (Auto) , Differential Total Cells Counted 100, Neutrophils % ( Manual) 91H, Lymphocytes % (Manual) 4L, Monocytes % (Manual) 2, Eosinophils % ( Manual) 0, Basophils % (Manual) 0, Band Neutrophils 3, Nucleated Red Blood Cells 2, Platelet Estimate Adequate, Platelet Morphology Normal, Hypochromasia 2 +, Anisocytosis 2+, Spherocytes 1+, Sodium Level 150H, Potassium Level 3.3L, Chloride Level 112H, Carbon Dioxide Level 23, Anion Gap 15, Blood Urea Nitrogen 43H, Creatinine 0.9, Estimat Glomerular Filtration Rate , Glucose Level 188H, Uric Acid 8.8H, Calcium Level 11.7H, Phosphorus Level 2.3L, Magnesium Level 1.5L , Iron Level 19L, Total Iron Binding Capacity 86L, Percent Iron Saturation 22, Unsaturated Iron Binding 67L, Ferritin 1615H, Total Bilirubin 0.6, Gamma Glutamyl Transpeptidase 53H, Aspartate Amino Transf (AST/SGOT) 11, Alanine Aminotransferase (ALT/SGPT) 18, Alkaline Phosphatase 120H, Troponin I < 0.30, C- Reactive Protein, Quantitative 23.6H, Pro-B-Type Natriuretic Peptide 9562H, Total Protein 5.0L, Albumin 1.7L, Globulin 3.3, Albumin/Globulin Ratio 0.5L, Prealbumin [Pending] Height (Feet): 5 Height (Inches): 3.00 Weight (Pounds): 140 General Appearance: no apparent distress, lethargic Respiratory/Chest: decreased breath sounds Objective other PE not changed EARNEST CADET Dec 14, 2016 13:44
[2016-12-14] MEDS: Dakin's 0.25% (Half Strength) 16oz TOPIC SCH ×2 (14:00→15:00)
[2016-12-14] MEDS ORDERED: NS Irrig 1000ml ONE (14:00)
[2016-12-14] MEDS ORDERED: Midazolam 2mg/2ml Inj ONE (14:00)
[2016-12-14] MEDS ORDERED: Sterile Water Irrig 1000ml IRRIG ONE (14:00)
[2016-12-14] MEDS ORDERED: LR 1000ml ONE (14:00)
[2016-12-14] MEDS ORDERED: Propofol 10mg/ml 20ml IV ONE (14:20)
--- NOTE | 2016-12-14 15:03 | Pulmonology Progress Note ---
Assessment/Plan Problems: (1) Sepsis (2) Acute encephalopathy (3) Renal failure (4) UTI (urinary tract infection) (5) Decubitus ulcer of sacral area (6) Anemia (7) Alzheimer's dementia Assessment/Plan continue antibiotics check cultures for debridement check electrolytes iv fluids check Ca daily wbc decreasing all notes reviewed, d/w dr Steinberg dvt prophylaxis Subjective ROS Limited/Unobtainable: Yes Allergies: Coded Allergies: NO KNOWN ALLERGIES (Unverified Allergy, Unknown, 09/05/15) Objective Last 24 Hour Vital Signs Date Time Temp Pulse Resp B/P Pulse Ox O2 Delivery O2 Flow Rate FiO2 12/14/16 11:52 97.2 71 20 128/58 95 Room Air 12/14/16 08:25 96.6 63 18 120/66 95 Room Air 12/14/16 07:45 67 19 Room Air 21 12/14/16 04:01 97.2 65 18 105/75 96 Room Air 12/14/16 04:00 65 12/14/16 00:01 97.9 84 17 93/56 94 Room Air 12/14/16 00:00 64 12/13/16 20:00 71 12/13/16 20:00 97.5 72 20 105/57 100 Room Air 12/13/16 19:31 66 18 Room Air 21 12/13/16 16:00 98.0 79 20 102/61 94 Room Air 12/13/16 16:00 71 Intake and Output 12/13/16 12/14/16 19:00 07:00 Intake Total 652.5 ml 1085.000 ml Output Total 600 ml Balance 652.5 ml 485.000 ml Intake IV Total 652.5 ml 1085.000 ml Output Urine Total 600 ml General Appearance: cachetic HEENT: normocephalic, atraumatic Respiratory/Chest: chest wall non-tender, lungs clear Cardiovascular: normal peripheral pulses, normal rate Abdomen: normal bowel sounds, soft, non tender Genitourinary: normal external genitalia Extremities: no cyanosis Skin: no rash 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, no motor/sensory deficits Lymphatic: no neck adenopathy Microbiology Date/Time Source Procedure Growth Status 12/12/16 16:15 Blood Blood Culture - Preliminary NO GROWTH AFTER 24 HOURS Resulted 12/12/16 16:10 Blood Blood Culture - Preliminary NO GROWTH AFTER 24 HOURS Resulted 12/13/16 05:00 Indwelling Cath Urine Culture - Preliminary NO GROWTH AFTER 24 HOURS Resulted 12/12/16 18:37 Urine,Clean Catch Urine Culture - Preliminary Gram Negative Bacillus 1 Resulted 12/13/16 06:00 Sacral Swab Gram Stain - Final Resulted 12/13/16 06:00 Sacral Swab Wound Culture - Preliminary Resulted 12/13/16 00:15 Sacral Lower Gram Stain - Final Resulted 12/13/16 00:15 Wound Culture - Preliminary Gram Negative Bacillus 1 Resulted 12/12/16 16:16 Rectum VRE Culture - Final NO VANCOMYCIN RESISTANT ENTEROCOCCUS ... Complete Laboratory Tests 12/14/16 06:15: White Blood Count 22.1*H, Red Blood Count 3.28L, Hemoglobin 9.1L, Hematocrit 27.7L, Mean Corpuscular Volume 85, Mean Corpuscular Hemoglobin 27.9, Mean Corpuscular Hemoglobin Concent 33.0, Red Cell Distribution Width 19.2H, Platelet Count 225, Mean Platelet Volume 7.6, Neutrophils (%) (Auto) , Lymphocytes (%) (Auto) , Monocytes (%) (Auto) , Eosinophils (%) (Auto) , Basophils (%) (Auto) , Differential Total Cells Counted 100, Neutrophils % ( Manual) 91H, Lymphocytes % (Manual) 4L, Monocytes % (Manual) 2, Eosinophils % ( Manual) 0, Basophils % (Manual) 0, Band Neutrophils 3, Nucleated Red Blood Cells 2, Platelet Estimate Adequate, Platelet Morphology Normal, Hypochromasia 2 +, Anisocytosis 2+, Spherocytes 1+, Sodium Level 150H, Potassium Level 3.3L, Chloride Level 112H, Carbon Dioxide Level 23, Anion Gap 15, Blood Urea Nitrogen 43H, Creatinine 0.9, Estimat Glomerular Filtration Rate , Glucose Level 188H, Uric Acid 8.8H, Calcium Level 11.7H, Phosphorus Level 2.3L, Magnesium Level 1.5L , Iron Level 19L, Total Iron Binding Capacity 86L, Percent Iron Saturation 22, Unsaturated Iron Binding 67L, Ferritin 1615H, Total Bilirubin 0.6, Gamma Glutamyl Transpeptidase 53H, Aspartate Amino Transf (AST/SGOT) 11, Alanine Aminotransferase (ALT/SGPT) 18, Alkaline Phosphatase 120H, Troponin I < 0.30, C- Reactive Protein, Quantitative 23.6H, Pro-B-Type Natriuretic Peptide 9562H, Total Protein 5.0L, Albumin 1.7L, Globulin 3.3, Albumin/Globulin Ratio 0.5L, Prealbumin [Pending] Current Medications Medications (Trade) Dose Ordered Sig/David Route PRN Reason Start Time Stop Time Status Last Admin Dose Admin Acetaminophen (Tylenol) 650 mg Q4H PRN ORAL fever 12/12/16 17:45 01/11/17 17:44 Albuterol/ Ipratropium (DuoNeb 0.5-3(2.5)mg/3ml) 3 ml Q4H PRN HHN Shortness of Breath 12/12/16 17:45 12/17/16 17:44 Calcitonin Jay 1 sprays 1 sprays DAILY NASAL 12/13/16 10:00 01/12/17 09:59 12/14/16 09:45 Collagenase 1 applic 1 applic DAILY TOPIC 12/14/16 13:00 01/13/17 12:59 Dextrose (D5W 1000ml) 1,000 ml @ 75 mls/hr [id number] IV 12/14/16 11:00 01/13/17 10:59 12/14/16 11:50 Dextrose (Dextrose 50%) STAT PRN IV Hypoglycemia 12/14/16 11:00 01/13/17 10:59 Docusate Sodium (Colace) 100 mg TWICE A DAY ORAL 12/12/16 20:50 01/11/17 20:49 12/12/16 20:54 Heparin Sodium (Porcine) (Heparin 5000 units/ml) 5,000 units EVERY 12 HOURS SUBQ 12/12/16 22:00 01/11/17 21:59 12/14/16 09:52 Insulin Aspart (NovoLOG) BEFORE MEALS AND HS SUBQ 12/14/16 11:30 01/13/17 11:29 12/14/16 12:12 Morphine Sulfate (Morphine Sulfate) 2 mg Q4H PRN IVP Moderate Pain (Pain Scale 4-6) 12/12/16 17:45 12/19/16 17:44 Nitroglycerin (Ntg) 0.4 mg Q5M PRN SL Prn Chest Pain 12/12/16 17:45 01/11/17 17:44 Ondansetron HCl (Zofran) 4 mg Q6H PRN IVP Nausea & Vomiting 12/12/16 17:45 3/29/17 17:44 Pantoprazole (Protonix) 40 mg DAILY IVP 12/13/16 09:00 01/12/17 08:59 12/14/16 10:02 Piperacillin Sod/ Tazobactam Sod/ Dextrose (Zosyn/D5W) 110 ml @ 27.5 mls/hr EVERY 8 HOURS IVPB 12/13/16 14:00 12/18/16 13:59 12/14/16 06:20 Polyethylene Glycol (Miralax) 17 gm DAILYPRN PRN ORAL Constipation 12/12/16 17:45 01/11/17 17:44 Potassium Phosphate 30 mm/ Sodium Chloride 285 ml @ 47.5 mls/hr ONCE ONCE IV 12/14/16 13:00 12/14/16 18:59 Sodium Hypochlorite (Dakin's Half Strength) 1 applic DAILY TOPIC 12/14/16 14:00 01/13/17 13:59 Temazepam (Restoril) 15 mg HSPRN PRN ORAL Insomnia 12/12/16 17:45 12/19/16 17:44 Vancomycin HCl 1 ea 1 ea DAILY PRN MISC PER RX PROTOCOL 12/12/16 21:15 01/11/17 21:14 Vancomycin HCl/ Dextrose (Vancomycin/D5W) 275 ml @ 183.708 mls/hr Q24H IVPB 12/14/16 00:00 12/19/16 00:00 12/14/16 00:38 EVENS CASTELLON Dec 14, 2016 15:03
[2016-12-14] MEDS ORDERED: LR 1000ml 1,000 ML IVLG SCH (15:07)
--- NOTE | 2016-12-14 15:07 | Anethesia Preoperative Eval ---
Anesthesia Pre-op PMH/ROS General Date of Evaluation: Dec 14, 2016 Time of Evaluation: 14:10 Anesthesiologist: Lara ASA Score: ASA 4 Mallampati Score Class I : Soft palate, uvula, fauces, pillars visible Class II: Soft palate, uvula, fauces visible Class III: Soft palate, base of uvula visible Class IV: Only hard plate visible Mallampati Classification: Class II Surgeon: Forest Diagnosis: Sepsis. Sacraldecubitus ulcer Surgical Procedure: Debridementof sacral decubitus ulcer Anesthesia History: none Family History: no anesthesia problems Allergies: Coded Allergies: NO KNOWN ALLERGIES (Unverified Allergy, Unknown, 09/05/15) Medications: see eMAR Past Medical History Cardiovascular: Reports: CAD, HTN, arrhythmia, other - pacemaker in place Pulmonary: Denies: COPD, KATTY, asthma, other Gastrointestinal/Genitourinary: Reports: GERD, other - dysphagia, Denies: CRI, ESRD Neurologic/Psychiatric: Reports: dementia, Denies: CVA, TIA, depression/anxiety, other Endocrine: Reports: hypothyroidism, Denies: DM, other, steroids HEENT: Denies: TEJON (L), TEJON (R), cataract (L), cataract (R), glaucoma, other Hematology/Immune: Reports: DVT - h/o, anemia, Denies: bleeding disorder, other Musculoskeletal/Integumentary: Reports: DJD, Denies: DDD, OA, RA, edema, other Other: other - malnourished PMH Narrative: as above PSxH Narrative: Pacemaker placement Anesthesia Pre-op Phys. Exam Physician Exam Last Vital Signs Date Time Temp Pulse Resp B/P Pulse Ox O2 Delivery O2 Flow Rate FiO2 12/14/16 11:52 97.2 71 20 128/58 95 Room Air 12/14/16 07:45 21 Constitutional: NAD Neurologic: other - unable to obtaine Cardiovascular: RRR Respiratory: CTA Gastrointestinal: S/NT/ND Airway Exam Mallampati Score: Class III MO: limited Neck: stiff ROM: limited Teeth: missing Dentures: no lower, no upper Anesthesia Pre-op A/P Labs Hematology Test 12/14/16 06:15 White Blood Count 22.1 K/UL (4.8-10.8) *H Red Blood Count 3.28 M/UL (4.20-5.40) L Hemoglobin 9.1 G/DL (12.0-16.0) L Hematocrit 27.7 % (37.0-47.0) L Mean Corpuscular Volume 85 FL (80-99) Mean Corpuscular Hemoglobin 27.9 PG (27.0-31.0) Mean Corpuscular Hemoglobin Concent 33.0 G/DL (32.0-36.0) Red Cell Distribution Width 19.2 % (11.6-14.8) H Platelet Count 225 K/UL (150-450) Mean Platelet Volume 7.6 FL (6.5-10.1) Neutrophils (%) (Auto) % (45.0-75.0) Lymphocytes (%) (Auto) % (20.0-45.0) Monocytes (%) (Auto) % (1.0-10.0) Eosinophils (%) (Auto) % (0.0-3.0) Basophils (%) (Auto) % (0.0-2.0) Differential Total Cells Counted 100 Neutrophils % (Manual) 91 % (45-75) H Lymphocytes % (Manual) 4 % (20-45) L Monocytes % (Manual) 2 % (1-10) Eosinophils % (Manual) 0 % (0-3) Basophils % (Manual) 0 % (0-2) Band Neutrophils 3 % (0-8) Nucleated Red Blood Cells 2 /100 WBC Platelet Estimate Adequate Platelet Morphology Normal Hypochromasia 2+ Anisocytosis 2+ Spherocytes 1+ Chemistry Test 12/14/16 06:15 Sodium Level 150 mEQ/L (135-145) H Potassium Level 3.3 mEQ/L (3.4-4.9) L Chloride Level 112 mEQ/L (98-107) H Carbon Dioxide Level 23 mEQ/L (20-30) Anion Gap 15 (5-15) Blood Urea Nitrogen 43 mg/dL (7-23) H Creatinine 0.9 mg/dL (0.5-0.9) Estimat Glomerular Filtration Rate mL/min (>60) Glucose Level 188 mg/dL (74-106) H Uric Acid 8.8 mg/dL (3.0-7.5) H Calcium Level 11.7 mg/dL (8.6-10.2) H Phosphorus Level 2.3 mg/dL (2.5-4.8) L Magnesium Level 1.5 mg/dL (1.7-2.5) L Iron Level 19 ug/dL (37-145) L Total Iron Binding Capacity 86 ug/dL (250-400) L Percent Iron Saturation 22 % (15-50) Unsaturated Iron Binding 67 ug/dL (112-346) L Ferritin 1615 ng/mL (13-150) H Total Bilirubin 0.6 mg/dL (0.0-1.2) Gamma Glutamyl Transpeptidase 53 U/L (5-36) H Aspartate Amino Transf (AST/SGOT) 11 U/L (5-40) Alanine Aminotransferase (ALT/SGPT) 18 U/L (3-33) Alkaline Phosphatase 120 U/L (35-104) H Troponin I < 0.30 ng/mL (<=0.30) C-Reactive Protein, Quantitative 23.6 mg/dL (< 0.5) H Pro-B-Type Natriuretic Peptide 9562 pg/mL (0-450) H Total Protein 5.0 g/dL (6.6-8.7) L Albumin 1.7 g/dL (3.5-5.2) L Globulin 3.3 g/dL Albumin/Globulin Ratio 0.5 (1.0-2.7) L Prealbumin Pending Studies Pre-op Studies: EKG - OH Risk Assessment & Plan Assessment: ASA 4 Plan: GA with LMA Status Change Before Surgery: No Pre-Antibiotics Drug: as scheduled GINETTE BAKER M.D. Dec 14, 2016 15:07
[2016-12-14] MEDS ORDERED: fentaNYL 100 mcg/2 mL IV PRN (15:15)
--- NOTE | 2016-12-14 15:32 | Brief Operative Note ---
Immediate Post Operative Note Operative Note Pre-op Diagnosis: Necrotic sacral pressure ulcer, osteomyelitis sacrum Procedure: Excisional debridement sacral ulcer, deep open bone biopsy sacrum Post-op Diagnosis: same as pre-op Surgeon: Maryan Anesthesiologist: Dr. Bermudez Anesthesia: general Specimen: yes Complications: none Condition: stable Fluids: 300 Estimated Blood Loss: minimal Drains: none Implant(s) used?: No KIARA LOPES Dec 14, 2016 15:32
[2016-12-15 00:09] VITALS: BP 123/82
[2016-12-15] MEDS: Vancomycin 750mg/D5W 275ml IVPB SCH ×2 (01:28)
[2016-12-15 04:14] VITALS: BP 117/72
[2016-12-15] MEDS: Piperacillin/Tazobactam 4.5 GM in D5W 110 ML IVPB SCH ×3 (05:52→21:22)
[2016-12-15] MEDS: NovoLOG Insulin Flexpen SUBQ SCH ×4 (06:30→21:00)
[2016-12-15 08:14] VITALS: BP 112/64
--- NOTE | 2016-12-15 08:29 | Cardiology Report ---
APPROVED REPORT EKG Measurement Heart [id number] Atrial fibrillation with demand ventricular pacing Abnormal ECG
--- NOTE | 2016-12-15 08:30 | Immediate Post-Op Evaluation ---
Immediate Post-Op Evalulation Immediate Post-Op Evalulation Procedure: Debridement of sacral decubitus ulcer Date of Evaluation: Dec 14, 2016 Time of Evaluation: 16:18 IV Fluids: 400 Blood Products: none Estimated Blood Loss: 50 Urinary Output: 100 Blood Pressure Systolic: 112 Blood Pressure Diastolic: 54 Pulse Rate: 76 Respiratory Rate: 20 O2 Sat by Pulse Oximetry: 98 Temperature (Fahrenheit): 97.3 Pain Score (1-10): 1 Nausea: No Vomiting: No Complications none Patient Status: reacts, patent, none Hydration Status: adequate GINETTE BAKER M.D. Dec 15, 2016 08:30
--- NOTE | 2016-12-15 08:31 | 48 Hour Post Anesthesia Eval ---
Post Anesthesia Evaluation Date of Evaluation: Dec 15, 2016 Time of Evaluation: 07:18 Blood Pressure Systolic: 112 0: 64 Pulse Rate: 70 Respiratory Rate: 20 Temperature (Fahrenheit): 96.9 O2 Sat by Pulse Oximetry: 96 Airway: patent Nausea: No Vomiting: No Pain Intensity: 2 Hydration Status: adequate Cardiopulmonary Status: Stable Mental Status/LOC: patient returned to baseline Follow-up Care/Observations: 0 Post-Anesthesia Complications: 0 Follow-up care needed: N/A Chepe Stewart MD Dec 15, 2016 08:31
[2016-12-15 08:36] LABS: MEAN CORPUSCULAR HEMOGLOBIN 27.5 PG (27.0-31.0); MEAN CORPUSCULAR HGB CONC 32.6 G/DL (32.0-36.0); MEAN CORPUSCULAR VOLUME 84 FL (80-99); MEAN PLATELET VOLUME 8.3 FL (6.5-10.1); PLATELET COUNT 180 K/UL (150-450); RED BLOOD COUNT 3.31 M/UL (4.20-5.40)
[2016-12-15 08:41] LABS: ALANINE AMINOTRANSFERASE 14 U/L (3-33); ALBUMIN/GLOBULIN RATIO 0.4 (1.0-2.7); ANION GAP 16 (5-15); ASPARTATE AMINO TRANSFERASE 7 U/L (5-40); CALCIUM 10.9 mg/dL (8.6-10.2); CARBON DIOXIDE 21 mEQ/L (20-30); CHLORIDE 108 mEQ/L (98-107); CREATININE 0.9 mg/dL (0.5-0.9); CRP QUANT 15.4 mg/dL (< 0.5); HEMOLYSIS 8; PHOSPHORUS 1.9 mg/dL (2.5-4.8); POTASSIUM 2.9 mEQ/L (3.4-4.9); SODIUM 145 mEQ/L (135-145); TOTAL PROTEIN 4.7 g/dL (6.6-8.7); URIC ACID 7.6 mg/dL (3.0-7.5)
[2016-12-15] MEDS ORDERED: DuoNeb 0.5-3(2.5)mg/3ml neb HHN PRN (09:45)
[2016-12-15] MEDS ORDERED: Nitroglycerin Subl 0.4mg tab (Bottle Of 25) SL PRN (09:45)
[2016-12-15 10:11] LABS: ANISOCYTOSIS 1+; BAND NEUTROPHILS % (MANUAL) 12 % (0-8); BASOPHILS % (MANUAL) 0 % (0-2); EOSINOPHILS % (MANUAL) 0 % (0-3); HYPOCHROMASIA 1+; LYMPHOCYTES % (MANUAL) 5 % (20-45); NEUTROPHILS % (MANUAL) 78 % (45-75); PLATELET ESTIMATE ADEQUATE; PLATELET MORPHOLOGY NORMAL; TOTAL CELLS COUNTED 100
[2016-12-15 10:12] LABS: TARGET CELLS OCCASIONAL
--- NOTE | 2016-12-15 10:18 | General Progress Note ---
Assessment/Plan Status: unchanged Status Narrative Ca lower Assessment/Plan status: Acute renal failure- mainly prerenal improved HyperCalcemia- being treated Leukocytosis / sepsis, on antibiotics other conditions mentioned in PH: -History of anemia. -Hypertension. -Diabetes type 2. -History of coronary artery disease. -Renal failure. -Paroxysmal atrial fibrillation. -History of right lower extremity deep venous thrombosis. -Arthritis. -Alzheimer's dementia. -Pacemaker in situ. Plan: Hydrate- change IV to D5- Phos and K supplement now and as needed- Randolph- Monitor renal parameters- per orders- discussed with RN Subjective ROS Limited/Unobtainable: Yes Allergies: Coded Allergies: NO KNOWN ALLERGIES (Unverified Allergy, Unknown, 09/05/15) Objective Last 24 Hour Vital Signs Date Time Temp Pulse Resp B/P Pulse Ox O2 Delivery O2 Flow Rate FiO2 12/15/16 08:31 70 20 96 12/15/16 08:30 76 20 98 12/15/16 08:14 96.9 72 20 112/64 96 Nasal Cannula 3.0 12/15/16 07:26 Nasal Cannula 3.0 32 12/15/16 07:26 94 Nasal Cannula 3.0 32 12/15/16 07:25 70 16 Nasal Cannula 3.0 32 12/15/16 04:14 98.5 74 18 117/72 95 Nasal Cannula 3.0 12/15/16 04:00 69 12/15/16 00:09 98.1 78 17 123/82 93 Nasal Cannula 3.0 12/15/16 00:00 65 12/14/16 20:53 Nasal Cannula 3.0 32 12/14/16 20:53 95 Nasal Cannula 3.0 32 12/14/16 20:00 96.3 68 21 124/70 93 Nasal Cannula 3.0 12/14/16 20:00 71 12/14/16 19:50 68 18 Nasal Cannula 3.0 32 12/14/16 17:16 65 12/14/16 16:45 97.9 63 18 130/73 100 Nasal Cannula 3.0 12/14/16 16:30 74 16 131/65 100 Nasal Cannula 3.0 12/14/16 16:15 74 25 158/98 100 Simple Mask 6.0 12/14/16 16:00 80 11 135/86 100 Simple Mask 6.0 12/14/16 15:49 77 15 145/89 100 Simple Mask 6.0 12/14/16 15:44 75 20 128/85 98 Simple Mask 6.0 12/14/16 15:39 98.0 75 26 131/65 98 Simple Mask 6.0 12/14/16 11:52 97.2 71 20 128/58 95 Room Air Intake and Output 12/14/16 12/15/16 19:00 07:00 Intake Total 485.0 ml Output Total 215 ml 300 ml Balance 270.0 ml -300 ml Intake IV Total 485.0 ml Output Urine Total 200 ml 300 ml Estimated Blood Loss 15 ml Laboratory Tests 12/14/16 23:45: Vancomycin Level Trough 9.8 12/15/16 08:00: White Blood Count 22.0H, Red Blood Count 3.31L, Hemoglobin 9.1L, Hematocrit 27.9L, Mean Corpuscular Volume 84, Mean Corpuscular Hemoglobin 27.5, Mean Corpuscular Hemoglobin Concent 32.6, Red Cell Distribution Width 19.0H, Platelet Count 180, Mean Platelet Volume 8.3, Neutrophils (%) (Auto) , Lymphocytes (%) (Auto) , Monocytes (%) (Auto) , Eosinophils (%) (Auto) , Basophils (%) (Auto) , Differential Total Cells Counted 100, Neutrophils % ( Manual) 78H, Lymphocytes % (Manual) 5L, Monocytes % (Manual) 5, Eosinophils % ( Manual) 0, Basophils % (Manual) 0, Band Neutrophils 12H, Platelet Estimate Adequate, Platelet Morphology Normal, Hypochromasia 1+, Anisocytosis 1+, Target Cells Occasional, Sodium Level 145, Potassium Level 2.9L, Chloride Level 108H, Carbon Dioxide Level 21, Anion Gap 16H, Blood Urea Nitrogen 37H, Creatinine 0.9 , Estimat Glomerular Filtration Rate , Glucose Level 172H, Uric Acid 7.6H, Calcium Level 10.9H, Phosphorus Level 1.9L, Magnesium Level 2.0, Total Bilirubin 0.5, Gamma Glutamyl Transpeptidase 40H, Aspartate Amino Transf (AST/ SGOT) 7, Alanine Aminotransferase (ALT/SGPT) 14, Alkaline Phosphatase 89, Total Creatine Kinase 15L, C-Reactive Protein, Quantitative 15.4H, Pro-B-Type Natriuretic Peptide 7993H, Total Protein 4.7L, Albumin 1.4L, Globulin 3.3, Albumin/Globulin Ratio 0.4L Height (Feet): 5 Height (Inches): 3.00 Weight (Pounds): 140 General Appearance: no apparent distress Neck: stiff neck Cardiovascular: normal rate, pacemaker/AICD Objective other PE not changed EARNEST CADET Dec 15, 2016 10:18
--- NOTE | 2016-12-15 10:34 | GI Progress Note ---
Assessment/Plan Problems: (1) Diabetes mellitus ICD Codes: E11.9 - Type 2 diabetes mellitus without complications SNOMED: 94250450 (2) Dysphagia ICD Codes: R13.10 - Dysphagia, unspecified SNOMED: 20062630, 357012754 (3) Encounter for PEG (percutaneous endoscopic gastrostomy) ICD Codes: Z43.1 - Encounter for attention to gastrostomy SNOMED: 749828548, 397411586 (4) Severe malnutrition ICD Codes: E43 - Unspecified severe protein-calorie malnutrition SNOMED: 79477591 (5) Hypoalbuminemia ICD Codes: E88.09 - Other disorders of plasma-protein metabolism, not elsewhere classified SNOMED: 421819792 (6) Leukocytosis ICD Codes: D72.829 - Elevated white blood cell count, unspecified SNOMED: 167443967, 943910060 (7) Iron deficiency ICD Codes: E61.1 - Iron deficiency SNOMED: 95819603 Status: unchanged Status Narrative Discussed with Dr. Miles. Assessment/Plan PEG scheduled for tomorrow - NPO @ [place] abx monitor H&H >> transfused prn PPI daily given history of severe gastritis iron panel >> unremarkable ST eval push PO bowel regime fu labs patient had EGD/colonoscopy last year 10/31. The patient was seen and examined at bedside and all new and available data was reviewed in the patients chart. I agree with the above findings, impression and plan. (Patient seen earlier today. Signature stamp does not reflect patient encounter time.). -Ruben Miles MD Subjective Subjective limited Objective Last 24 Hour Vital Signs Date Time Temp Pulse Resp B/P Pulse Ox O2 Delivery O2 Flow Rate FiO2 12/15/16 08:31 70 20 96 12/15/16 08:30 76 20 98 12/15/16 08:14 96.9 72 20 112/64 96 Nasal Cannula 3.0 12/15/16 07:26 Nasal Cannula 3.0 32 12/15/16 07:26 94 Nasal Cannula 3.0 32 12/15/16 07:25 70 16 Nasal Cannula 3.0 32 12/15/16 04:14 98.5 74 18 117/72 95 Nasal Cannula 3.0 12/15/16 04:00 69 12/15/16 00:09 98.1 78 17 123/82 93 Nasal Cannula 3.0 12/15/16 00:00 65 12/14/16 20:53 Nasal Cannula 3.0 32 12/14/16 20:53 95 Nasal Cannula 3.0 32 12/14/16 20:00 96.3 68 21 124/70 93 Nasal Cannula 3.0 12/14/16 20:00 71 12/14/16 19:50 68 18 Nasal Cannula 3.0 32 12/14/16 17:16 65 12/14/16 16:45 97.9 63 18 130/73 100 Nasal Cannula 3.0 12/14/16 16:30 74 16 131/65 100 Nasal Cannula 3.0 12/14/16 16:15 74 25 158/98 100 Simple Mask 6.0 12/14/16 16:00 80 11 135/86 100 Simple Mask 6.0 12/14/16 15:49 77 15 145/89 100 Simple Mask 6.0 12/14/16 15:44 75 20 128/85 98 Simple Mask 6.0 12/14/16 15:39 98.0 75 26 131/65 98 Simple Mask 6.0 12/14/16 11:52 97.2 71 20 128/58 95 Room Air Intake and Output 12/14/16 12/15/16 19:00 07:00 Intake Total 485.0 ml Output Total 215 ml 300 ml Balance 270.0 ml -300 ml Intake IV Total 485.0 ml Output Urine Total 200 ml 300 ml Estimated Blood Loss 15 ml Laboratory Tests Test 12/14/16 23:45 12/15/16 08:00 Vancomycin Level Trough 9.8 ug/mL (5.0-12.0) White Blood Count 22.0 K/UL (4.8-10.8) H Red Blood Count 3.31 M/UL (4.20-5.40) L Hemoglobin 9.1 G/DL (12.0-16.0) L Hematocrit 27.9 % (37.0-47.0) L Mean Corpuscular Volume 84 FL (80-99) Mean Corpuscular Hemoglobin 27.5 PG (27.0-31.0) Mean Corpuscular Hemoglobin Concent 32.6 G/DL (32.0-36.0) Red Cell Distribution Width 19.0 % (11.6-14.8) H Platelet Count 180 K/UL (150-450) Mean Platelet Volume 8.3 FL (6.5-10.1) Neutrophils (%) (Auto) % (45.0-75.0) Lymphocytes (%) (Auto) % (20.0-45.0) Monocytes (%) (Auto) % (1.0-10.0) Eosinophils (%) (Auto) % (0.0-3.0) Basophils (%) (Auto) % (0.0-2.0) Differential Total Cells Counted 100 Neutrophils % (Manual) 78 % (45-75) H Lymphocytes % (Manual) 5 % (20-45) L Monocytes % (Manual) 5 % (1-10) Eosinophils % (Manual) 0 % (0-3) Basophils % (Manual) 0 % (0-2) Band Neutrophils 12 % (0-8) H Platelet Estimate Adequate Platelet Morphology Normal Hypochromasia 1+ Anisocytosis 1+ Target Cells Occasional Sodium Level 145 mEQ/L (135-145) Potassium Level 2.9 mEQ/L (3.4-4.9) L Chloride Level 108 mEQ/L (98-107) H Carbon Dioxide Level 21 mEQ/L (20-30) Anion Gap 16 (5-15) H Blood Urea Nitrogen 37 mg/dL (7-23) H Creatinine 0.9 mg/dL (0.5-0.9) Estimat Glomerular Filtration Rate mL/min (>60) Glucose Level 172 mg/dL (74-106) H Uric Acid 7.6 mg/dL (3.0-7.5) H Calcium Level 10.9 mg/dL (8.6-10.2) H Phosphorus Level 1.9 mg/dL (2.5-4.8) L Magnesium Level 2.0 mg/dL (1.7-2.5) Total Bilirubin 0.5 mg/dL (0.0-1.2) Gamma Glutamyl Transpeptidase 40 U/L (5-36) H Aspartate Amino Transf (AST/SGOT) 7 U/L (5-40) Alanine Aminotransferase (ALT/SGPT) 14 U/L (3-33) Alkaline Phosphatase 89 U/L (35-104) Total Creatine Kinase 15 U/L (26-140) L C-Reactive Protein, Quantitative 15.4 mg/dL (< 0.5) H Pro-B-Type Natriuretic Peptide 7993 pg/mL (0-450) H Total Protein 4.7 g/dL (6.6-8.7) L Albumin 1.4 g/dL (3.5-5.2) L Globulin 3.3 g/dL Albumin/Globulin Ratio 0.4 (1.0-2.7) L Height (Feet): 5 Height (Inches): 3.00 Weight (Pounds): 140 General Appearance: no apparent distress, alert Cardiovascular: normal rate Respiratory/Chest: normal breath sounds, no respiratory distress Abdominal Exam: soft Objective DATE OF PROCEDURE: 10/23/2015 SURGEON: Ruben Miles M.D. PROCEDURE: Upper endoscopy with biopsy and colonoscopy with biopsy and polypectomy. INDICATION: Anemia, screening colonoscopy evaluation, abdominal pain, and GERD. SUMMARY OF FINDINGS: 1. Severe gastritis, status post biopsy. 2. Duodenal polyp, status post biopsy. 3. Inflammatory looking polyp in the antrum of the stomach, status post biopsy. 4. Paraesophageal hernia. 5. Two colonic polyp removed, see above for details. 6. Diverticulosis. 7. Internal hemorrhoids. Lyndsay Torres N.P. Dec 15, 2016 10:34 RUBEN MILES Dec 19, 2016 08:55
[2016-12-15] MEDS: Docusate 100mg cap ORAL SCH ×2 (11:00→18:47)
[2016-12-15] MEDS ORDERED: Potassium Phosphate 30 MM in NS 275 ML IV ONE (12:00)
[2016-12-15] MEDS: Pantoprazole Inj IVP SCH (12:19)
[2016-12-15] MEDS: Heparin 5000 units/ml inj SUBQ SCH ×3 (12:19→22:26)
[2016-12-15 12:37] VITALS: BP 118/72
--- NOTE | 2016-12-15 14:19 | Diagnostic Imaging Report ---
Indication: NG tube Comparison: None Single view of the abdomen obtained NG tube is within the airway is projected over the right lower lobe. Tube should be removed. This was conveyed to the nurse on 4 W. 2: 10 PM. Impression: Endotracheal tube within the airway. Critical value communication. Findings were discussed via telephone with 4 W. charge nurse at 2:10 PM .
--- NOTE | 2016-12-15 14:26 | Wound Care Consultation ---
Wound Assessment Wound Assessment : Wound Number: #1 Wound Present on Admission: Yes New Wound: No Status Change of Wound: Yes Wound Location Body Site: sacral Wound Type: pressure ulcer Crystal Test: Does not Crystal Pressure Ulcer Stage: IV/unstageable Wound Thickness: Full Thickness Wound Length: 16.0 Wound Width: 16.0 Wound Depth: 3.5 Percent of Wound [place]/Red: 30 Percent of Wound Bed Yellow/Wh: 70 - scattered yellow Wound Drainage Description: Serosanguineous Wound Drainage Amount: Copious Wound Drainage Odor: None/Absent Tissue Surrounding Wound: Macerated Wound Undermining at 6:00: 6.0 Wound Undermining at 9:00: 6.0 Wound General Appearance: Reddened, Bleeding - scant, Draining, Bone Palpable, Muscle Visible, Bone Visible Wound Comment #1 s/p debridement to sacral pressure ulcer stage IV/Unstageable. RECOMMENDATION. -FOLLOW orders for s/p debridement per MD order. -Turn and reposition. -Offload sacral site. -Keep clean and dry. -Optimize nutrition. -Heel protectors. -Offload heels and feet. -Low air loss mattress with AP. -Avoid shear and friction. -Assess and notify MD if any change of condition is needed. FAHAD SEGUNDO Dec 15, 2016 14:26
[2016-12-15] MEDS: Dakin's 0.25% (Half Strength) 16oz TOPIC SCH (14:54)
[2016-12-15 16:00] VITALS: BP 112/63
--- NOTE | 2016-12-15 16:14 | Cardiac Electrophysiology PN ---
Subjective Subjective [id number] Objective Last 24 Hour Vital Signs Date Time Temp Pulse Resp B/P Pulse Ox O2 Delivery O2 Flow Rate FiO2 12/15/16 12:37 97.1 62 19 118/72 3 Nasal Cannula 3.0 12/15/16 08:31 70 20 96 12/15/16 08:30 76 20 98 12/15/16 08:14 96.9 72 20 112/64 96 Nasal Cannula 3.0 12/15/16 07:26 Nasal Cannula 3.0 32 12/15/16 07:26 94 Nasal Cannula 3.0 32 12/15/16 07:25 70 16 Nasal Cannula 3.0 32 12/15/16 04:14 98.5 74 18 117/72 95 Nasal Cannula 3.0 12/15/16 04:00 69 12/15/16 00:09 98.1 78 17 123/82 93 Nasal Cannula 3.0 12/15/16 00:00 65 12/14/16 20:53 Nasal Cannula 3.0 32 12/14/16 20:53 95 Nasal Cannula 3.0 32 12/14/16 20:00 96.3 68 21 124/70 93 Nasal Cannula 3.0 12/14/16 20:00 71 12/14/16 19:50 68 18 Nasal Cannula 3.0 32 12/14/16 17:16 65 12/14/16 16:45 97.9 63 18 130/73 100 Nasal Cannula 3.0 12/14/16 16:30 74 16 131/65 100 Nasal Cannula 3.0 12/14/16 16:15 74 25 158/98 100 Simple Mask 6.0 Intake and Output 12/14/16 12/15/16 19:00 07:00 Intake Total 485.0 ml Output Total 215 ml 300 ml Balance 270.0 ml -300 ml Intake IV Total 485.0 ml Output Urine Total 200 ml 300 ml Estimated Blood Loss 15 ml Laboratory Tests Test 12/14/16 23:45 12/15/16 08:00 Vancomycin Level Trough 9.8 ug/mL (5.0-12.0) White Blood Count 22.0 K/UL (4.8-10.8) H Red Blood Count 3.31 M/UL (4.20-5.40) L Hemoglobin 9.1 G/DL (12.0-16.0) L Hematocrit 27.9 % (37.0-47.0) L Mean Corpuscular Volume 84 FL (80-99) Mean Corpuscular Hemoglobin 27.5 PG (27.0-31.0) Mean Corpuscular Hemoglobin Concent 32.6 G/DL (32.0-36.0) Red Cell Distribution Width 19.0 % (11.6-14.8) H Platelet Count 180 K/UL (150-450) Mean Platelet Volume 8.3 FL (6.5-10.1) Neutrophils (%) (Auto) % (45.0-75.0) Lymphocytes (%) (Auto) % (20.0-45.0) Monocytes (%) (Auto) % (1.0-10.0) Eosinophils (%) (Auto) % (0.0-3.0) Basophils (%) (Auto) % (0.0-2.0) Differential Total Cells Counted 100 Neutrophils % (Manual) 78 % (45-75) H Lymphocytes % (Manual) 5 % (20-45) L Monocytes % (Manual) 5 % (1-10) Eosinophils % (Manual) 0 % (0-3) Basophils % (Manual) 0 % (0-2) Band Neutrophils 12 % (0-8) H Platelet Estimate Adequate Platelet Morphology Normal Hypochromasia 1+ Anisocytosis 1+ Target Cells Occasional Sodium Level 145 mEQ/L (135-145) Potassium Level 2.9 mEQ/L (3.4-4.9) L Chloride Level 108 mEQ/L (98-107) H Carbon Dioxide Level 21 mEQ/L (20-30) Anion Gap 16 (5-15) H Blood Urea Nitrogen 37 mg/dL (7-23) H Creatinine 0.9 mg/dL (0.5-0.9) Estimat Glomerular Filtration Rate mL/min (>60) Glucose Level 172 mg/dL (74-106) H Uric Acid 7.6 mg/dL (3.0-7.5) H Calcium Level 10.9 mg/dL (8.6-10.2) H Phosphorus Level 1.9 mg/dL (2.5-4.8) L Magnesium Level 2.0 mg/dL (1.7-2.5) Total Bilirubin 0.5 mg/dL (0.0-1.2) Gamma Glutamyl Transpeptidase 40 U/L (5-36) H Aspartate Amino Transf (AST/SGOT) 7 U/L (5-40) Alanine Aminotransferase (ALT/SGPT) 14 U/L (3-33) Alkaline Phosphatase 89 U/L (35-104) Total Creatine Kinase 15 U/L (26-140) L C-Reactive Protein, Quantitative 15.4 mg/dL (< 0.5) H Pro-B-Type Natriuretic Peptide 7993 pg/mL (0-450) H Total Protein 4.7 g/dL (6.6-8.7) L Albumin 1.4 g/dL (3.5-5.2) L Globulin 3.3 g/dL Albumin/Globulin Ratio 0.4 (1.0-2.7) L Microbiology Date/Time Source Procedure Growth Status 12/13/16 09:30 Blood Blood Culture - Preliminary NO GROWTH AFTER 24 HOURS Resulted 12/13/16 09:15 Blood Blood Culture - Preliminary Staphylococcus Sp Coag Neg Resulted 12/12/16 16:15 Blood Blood Culture - Preliminary NO GROWTH AFTER 48 HOURS Resulted 12/12/16 16:16 Nasal Nares MRSA Culture - Final NO METHICILLIN RESISTANT STAPH AUREUS... Complete 12/13/16 05:00 Indwelling Cath Urine Culture - Final NO GROWTH AFTER 48 HOURS Complete 12/12/16 18:37 Urine,Clean Catch Urine Culture - Final Escherichia Coli Complete 12/13/16 06:00 Sacral Swab Gram Stain - Final Resulted 12/13/16 06:00 Wound Culture - Preliminary Escherichia Coli Gram Negative Bacillus 2 Staphylococcus Sp Coag Neg Resulted 12/13/16 00:15 Sacral Lower Gram Stain - Final Resulted 12/13/16 00:15 Wound Culture - Preliminary Gram Negative Bacillus 1 Gram Positive Cocci Resulted 12/12/16 16:16 Rectum VRE Culture - Final NO VANCOMYCIN RESISTANT ENTEROCOCCUS ... Complete STAR ROA Dec 15, 2016 16:14
--- NOTE | 2016-12-15 16:41 | Pulmonology Progress Note ---
Assessment/Plan Problems: (1) Sepsis (2) Acute encephalopathy (3) Renal failure (4) UTI (urinary tract infection) (5) Decubitus ulcer of sacral area (6) Anemia (7) Alzheimer's dementia Assessment/Plan s/p debridement NG tube insertion was not successful continue antibiotics check cultures check electrolytes iv fluids check Ca daily wbc decreasing dvt prophylaxis Subjective Interval Events: somnolent Allergies: Coded Allergies: NO KNOWN ALLERGIES (Unverified Allergy, Unknown, 09/05/15) Objective Last 24 Hour Vital Signs Date Time Temp Pulse Resp B/P Pulse Ox O2 Delivery O2 Flow Rate FiO2 12/15/16 12:37 97.1 62 19 118/72 3 Nasal Cannula 3.0 12/15/16 08:31 70 20 96 12/15/16 08:30 76 20 98 12/15/16 08:14 96.9 72 20 112/64 96 Nasal Cannula 3.0 12/15/16 07:26 Nasal Cannula 3.0 32 12/15/16 07:26 94 Nasal Cannula 3.0 32 12/15/16 07:25 70 16 Nasal Cannula 3.0 32 12/15/16 04:14 98.5 74 18 117/72 95 Nasal Cannula 3.0 12/15/16 04:00 69 12/15/16 00:09 98.1 78 17 123/82 93 Nasal Cannula 3.0 12/15/16 00:00 65 12/14/16 20:53 Nasal Cannula 3.0 32 12/14/16 20:53 95 Nasal Cannula 3.0 32 12/14/16 20:00 96.3 68 21 124/70 93 Nasal Cannula 3.0 12/14/16 20:00 71 12/14/16 19:50 68 18 Nasal Cannula 3.0 32 12/14/16 17:16 65 12/14/16 16:45 97.9 63 18 130/73 100 Nasal Cannula 3.0 Intake and Output 12/14/16 12/15/16 19:00 07:00 Intake Total 485.0 ml Output Total 215 ml 300 ml Balance 270.0 ml -300 ml Intake IV Total 485.0 ml Output Urine Total 200 ml 300 ml Estimated Blood Loss 15 ml General Appearance: cachetic HEENT: normocephalic, atraumatic Respiratory/Chest: chest wall non-tender, lungs clear Cardiovascular: normal peripheral pulses, normal rate Abdomen: normal bowel sounds, soft, non tender Genitourinary: normal external genitalia Extremities: no clubbing Skin: no lesions Neurologic/Psychiatric: no motor/sensory deficits, responsive, normal mood/ affect Microbiology Date/Time Source Procedure Growth Status 12/13/16 09:30 Blood Blood Culture - Preliminary NO GROWTH AFTER 24 HOURS Resulted 12/13/16 09:15 Blood Blood Culture - Preliminary Staphylococcus Sp Coag Neg Resulted 12/13/16 05:00 Indwelling Cath Urine Culture - Final NO GROWTH AFTER 48 HOURS Complete 12/12/16 18:37 Urine,Clean Catch Urine Culture - Final Escherichia Coli Complete 12/13/16 06:00 Sacral Swab Gram Stain - Final Resulted 12/13/16 06:00 Wound Culture - Preliminary Escherichia Coli Gram Negative Bacillus 2 Staphylococcus Sp Coag Neg Resulted 12/13/16 00:15 Sacral Lower Gram Stain - Final Resulted 12/13/16 00:15 Wound Culture - Preliminary Gram Negative Bacillus 1 Gram Positive Cocci Resulted Laboratory Tests 12/14/16 23:45: Vancomycin Level Trough 9.8 12/15/16 08:00: White Blood Count 22.0H, Red Blood Count 3.31L, Hemoglobin 9.1L, Hematocrit 27.9L, Mean Corpuscular Volume 84, Mean Corpuscular Hemoglobin 27.5, Mean Corpuscular Hemoglobin Concent 32.6, Red Cell Distribution Width 19.0H, Platelet Count 180, Mean Platelet Volume 8.3, Neutrophils (%) (Auto) , Lymphocytes (%) (Auto) , Monocytes (%) (Auto) , Eosinophils (%) (Auto) , Basophils (%) (Auto) , Differential Total Cells Counted 100, Neutrophils % ( Manual) 78H, Lymphocytes % (Manual) 5L, Monocytes % (Manual) 5, Eosinophils % ( Manual) 0, Basophils % (Manual) 0, Band Neutrophils 12H, Platelet Estimate Adequate, Platelet Morphology Normal, Hypochromasia 1+, Anisocytosis 1+, Target Cells Occasional, Sodium Level 145, Potassium Level 2.9L, Chloride Level 108H, Carbon Dioxide Level 21, Anion Gap 16H, Blood Urea Nitrogen 37H, Creatinine 0.9 , Estimat Glomerular Filtration Rate , Glucose Level 172H, Uric Acid 7.6H, Calcium Level 10.9H, Phosphorus Level 1.9L, Magnesium Level 2.0, Total Bilirubin 0.5, Gamma Glutamyl Transpeptidase 40H, Aspartate Amino Transf (AST/ SGOT) 7, Alanine Aminotransferase (ALT/SGPT) 14, Alkaline Phosphatase 89, Total Creatine Kinase 15L, C-Reactive Protein, Quantitative 15.4H, Pro-B-Type Natriuretic Peptide 7993H, Total Protein 4.7L, Albumin 1.4L, Globulin 3.3, Albumin/Globulin Ratio 0.4L Current Medications Medications (Trade) Dose Ordered Sig/David Route PRN Reason Start Time Stop Time Status Last Admin Dose Admin Acetaminophen (Tylenol) 650 mg Q4H PRN ORAL fever 12/15/16 09:45 01/14/17 09:44 Albuterol/ Ipratropium (DuoNeb 0.5-3(2.5)mg/3ml) 3 ml Q4H PRN HHN Shortness of Breath 12/15/16 09:45 12/20/16 09:44 Calcitonin [place] (Miacalcin) 1 sprays DAILY NASAL 12/15/16 11:00 01/14/17 10:59 12/15/16 14:25 Cefoxitin Sodium/ Dextrose (Mefoxin/D5W) 55 ml @ 110 mls/hr ONCE ONCE IV 12/16/16 08:00 12/16/16 08:29 Dextrose 1,000 ml @ 75 mls/hr [id number] IV 12/15/16 11:00 01/14/17 10:59 12/15/16 13:22 Dextrose (Dextrose 50%) STAT PRN IV Hypoglycemia 12/15/16 11:00 01/14/17 10:59 Docusate Sodium (Colace) 100 mg TWICE A DAY ORAL 12/15/16 11:00 01/14/17 10:59 Heparin Sodium (Porcine) (Heparin 5000 units/ml) 5,000 units EVERY 12 HOURS SUBQ 12/15/16 11:00 01/14/17 10:59 12/15/16 12:19 Insulin Aspart (NovoLOG) BEFORE MEALS AND HS SUBQ 12/15/16 11:30 01/14/17 11:29 Morphine Sulfate (Morphine Sulfate) 2 mg Q4H PRN IVP Moderate Pain (Pain Scale 4-6) 12/15/16 09:45 12/22/16 09:44 Nitroglycerin (Ntg) 0.4 mg Q5M PRN SL Prn Chest Pain 12/15/16 09:45 01/14/17 09:44 Ondansetron HCl (Zofran) 4 mg Q6H PRN IVP Nausea & Vomiting 12/15/16 11:45 01/14/17 11:44 Pantoprazole (Protonix) 40 mg DAILY IVP 12/15/16 11:00 01/14/17 10:59 12/15/16 12:19 Piperacillin Sod/ Tazobactam Sod 4.5 gm/Dextrose 110 ml @ 27.5 mls/hr EVERY 8 HOURS IVPB 12/15/16 14:00 12/20/16 13:59 12/15/16 14:24 Polyethylene Glycol (Miralax) 17 gm DAILYPRN PRN ORAL Constipation 12/15/16 17:45 01/14/17 17:44 Potassium Phosphate 30 mm/ Sodium Chloride 285 ml @ 47.5 mls/hr ONCE ONCE IV 12/15/16 12:00 12/15/16 17:59 12/15/16 12:52 Sodium Hypochlorite (Dakin's Half Strength) 1 applic DAILY TOPIC 12/15/16 11:00 01/14/17 10:59 12/15/16 14:54 Temazepam (Restoril) 15 mg HSPRN PRN ORAL Insomnia 12/15/16 17:45 12/22/16 17:44 Vancomycin HCl 1 ea 1 ea DAILY PRN MISC PER RX PROTOCOL 12/16/16 09:00 01/15/17 08:59 Vancomycin HCl/ Dextrose (Vancomycin/D5W) 275 ml @ 183.708 mls/hr Q24H IVPB 12/16/16 00:00 12/19/16 00:00 EVENS CASTELLON Dec 15, 2016 16:40
[2016-12-15] MEDS ORDERED: Miralax 17gm pkt ORAL PRN (17:45)
--- NOTE | 2016-12-15 18:28 | Internal Med Progress Note ---
Subjective Date of Service: Dec 15, 2016 Physician Name Bradley Davis Attending Physician Titi Cruz MD Current Medications Medications (Trade) Dose Ordered Sig/David Route PRN Reason Start Time Stop Time Status Last Admin Dose Admin Acetaminophen (Tylenol) 650 mg Q4H PRN ORAL fever 12/15/16 09:45 01/14/17 09:44 Albuterol/ Ipratropium (DuoNeb 0.5-3(2.5)mg/3ml) 3 ml Q4H PRN HHN Shortness of Breath 12/15/16 09:45 12/20/16 09:44 Calcitonin [place] (Miacalcin) 1 sprays DAILY NASAL 12/15/16 11:00 01/14/17 10:59 12/15/16 14:25 Cefoxitin Sodium/ Dextrose (Mefoxin/D5W) 55 ml @ 110 mls/hr ONCE ONCE IV 12/16/16 08:00 12/16/16 08:29 Dextrose 1,000 ml @ 75 mls/hr [id number] IV 12/15/16 11:00 01/14/17 10:59 12/15/16 13:22 Dextrose (Dextrose 50%) STAT PRN IV Hypoglycemia 12/15/16 11:00 01/14/17 10:59 Docusate Sodium (Colace) 100 mg TWICE A DAY ORAL 12/15/16 11:00 01/14/17 10:59 Heparin Sodium (Porcine) (Heparin 5000 units/ml) 5,000 units EVERY 12 HOURS SUBQ 12/15/16 11:00 01/14/17 10:59 12/15/16 12:19 Insulin Aspart (NovoLOG) BEFORE MEALS AND HS SUBQ 12/15/16 11:30 01/14/17 11:29 Morphine Sulfate (Morphine Sulfate) 2 mg Q4H PRN IVP Moderate Pain (Pain Scale 4-6) 12/15/16 09:45 12/22/16 09:44 Nitroglycerin (Ntg) 0.4 mg Q5M PRN SL Prn Chest Pain 12/15/16 09:45 01/14/17 09:44 Ondansetron HCl (Zofran) 4 mg Q6H PRN IVP Nausea & Vomiting 12/15/16 11:45 01/14/17 11:44 Pantoprazole (Protonix) 40 mg DAILY IVP 12/15/16 11:00 01/14/17 10:59 12/15/16 12:19 Piperacillin Sod/ Tazobactam Sod 4.5 gm/Dextrose 110 ml @ 27.5 mls/hr EVERY 8 HOURS IVPB 12/15/16 14:00 12/20/16 13:59 12/15/16 14:24 Polyethylene Glycol (Miralax) 17 gm DAILYPRN PRN ORAL Constipation 12/15/16 17:45 01/14/17 17:44 Sodium Hypochlorite (Dakin's Half Strength) 1 applic DAILY TOPIC 12/15/16 11:00 01/14/17 10:59 12/15/16 14:54 Temazepam (Restoril) 15 mg HSPRN PRN ORAL Insomnia 12/15/16 17:45 12/22/16 17:44 Vancomycin HCl 1 ea 1 ea DAILY PRN MISC PER RX PROTOCOL 12/16/16 09:00 01/15/17 08:59 Vancomycin HCl/ Dextrose (Vancomycin/D5W) 275 ml @ 183.708 mls/hr Q24H IVPB 12/16/16 00:00 12/19/16 00:00 Allergies: Coded Allergies: NO KNOWN ALLERGIES (Unverified Allergy, Unknown, 09/05/15) ROS Limited/Unobtainable: Yes Subjective 86 YO F admitted with sepsis. S/P debridement sacral decubitus ulcer on . Cover for Int Med-Dr Cruz. Objective Last Vital Signs Date Time Temp Pulse Resp B/P Pulse Ox O2 Delivery O2 Flow Rate FiO2 12/15/16 16:00 96.1 64 20 112/63 98 Room Air 12/15/16 12:37 3.0 12/15/16 07:26 32 Laboratory Tests Test 12/14/16 23:45 12/15/16 08:00 Vancomycin Level Trough 9.8 ug/mL (5.0-12.0) White Blood Count 22.0 K/UL (4.8-10.8) H Red Blood Count 3.31 M/UL (4.20-5.40) L Hemoglobin 9.1 G/DL (12.0-16.0) L Hematocrit 27.9 % (37.0-47.0) L Mean Corpuscular Volume 84 FL (80-99) Mean Corpuscular Hemoglobin 27.5 PG (27.0-31.0) Mean Corpuscular Hemoglobin Concent 32.6 G/DL (32.0-36.0) Red Cell Distribution Width 19.0 % (11.6-14.8) H Platelet Count 180 K/UL (150-450) Mean Platelet Volume 8.3 FL (6.5-10.1) Neutrophils (%) (Auto) % (45.0-75.0) Lymphocytes (%) (Auto) % (20.0-45.0) Monocytes (%) (Auto) % (1.0-10.0) Eosinophils (%) (Auto) % (0.0-3.0) Basophils (%) (Auto) % (0.0-2.0) Differential Total Cells Counted 100 Neutrophils % (Manual) 78 % (45-75) H Lymphocytes % (Manual) 5 % (20-45) L Monocytes % (Manual) 5 % (1-10) Eosinophils % (Manual) 0 % (0-3) Basophils % (Manual) 0 % (0-2) Band Neutrophils 12 % (0-8) H Platelet Estimate Adequate Platelet Morphology Normal Hypochromasia 1+ Anisocytosis 1+ Target Cells Occasional Sodium Level 145 mEQ/L (135-145) Potassium Level 2.9 mEQ/L (3.4-4.9) L Chloride Level 108 mEQ/L (98-107) H Carbon Dioxide Level 21 mEQ/L (20-30) Anion Gap 16 (5-15) H Blood Urea Nitrogen 37 mg/dL (7-23) H Creatinine 0.9 mg/dL (0.5-0.9) Estimat Glomerular Filtration Rate mL/min (>60) Glucose Level 172 mg/dL (74-106) H Uric Acid 7.6 mg/dL (3.0-7.5) H Calcium Level 10.9 mg/dL (8.6-10.2) H Phosphorus Level 1.9 mg/dL (2.5-4.8) L Magnesium Level 2.0 mg/dL (1.7-2.5) Total Bilirubin 0.5 mg/dL (0.0-1.2) Gamma Glutamyl Transpeptidase 40 U/L (5-36) H Aspartate Amino Transf (AST/SGOT) 7 U/L (5-40) Alanine Aminotransferase (ALT/SGPT) 14 U/L (3-33) Alkaline Phosphatase 89 U/L (35-104) Total Creatine Kinase 15 U/L (26-140) L C-Reactive Protein, Quantitative 15.4 mg/dL (< 0.5) H Pro-B-Type Natriuretic Peptide 7993 pg/mL (0-450) H Total Protein 4.7 g/dL (6.6-8.7) L Albumin 1.4 g/dL (3.5-5.2) L Globulin 3.3 g/dL Albumin/Globulin Ratio 0.4 (1.0-2.7) L Microbiology Date/Time Source Procedure Growth Status 12/13/16 09:30 Blood Blood Culture - Preliminary NO GROWTH AFTER 24 HOURS Resulted 12/13/16 09:15 Blood Blood Culture - Preliminary Staphylococcus Sp Coag Neg Resulted 12/13/16 05:00 Indwelling Cath Urine Culture - Final NO GROWTH AFTER 48 HOURS Complete 12/12/16 18:37 Urine,Clean Catch Urine Culture - Final Escherichia Coli Complete 12/13/16 06:00 Sacral Swab Gram Stain - Final Resulted 12/13/16 06:00 Wound Culture - Preliminary Escherichia Coli Gram Negative Bacillus 2 Staphylococcus Sp Coag Neg Resulted 12/13/16 00:15 Sacral Lower Gram Stain - Final Resulted 12/13/16 00:15 Wound Culture - Preliminary Gram Negative Bacillus 1 Gram Positive Cocci Resulted Intake and Output 12/14/16 12/15/16 19:00 07:00 Intake Total 485.0 ml Output Total 215 ml 300 ml Balance 270.0 ml -300 ml Intake IV Total 485.0 ml Output Urine Total 200 ml 300 ml Estimated Blood Loss 15 ml Objective General Appearance: mild distress, lethargic, thin EENT: PERRL/EOMI, normal ENT inspection Neck: non-tender, normal alignment Cardiovascular: normal peripheral pulses, no gallop/murmur, no JVD, irregularly irregular Respiratory/Chest: chest wall non-tender, crackles/rales, rhonchi - bilaterally , expiratory wheezing Abdomen: normal bowel sounds, non tender, soft, no organomegaly, no mass Extremities: normal range of motion, non-tender Skin: normal pigmentation, warm/dry Assessment/Plan Problem List: (1) Dysphagia Assessment & Plan: Await PEG-See GI note-Dr Vosoghi (2) Hypokalemia Assessment & Plan: See nephrology note. (3) Hypernatremia (4) UTI (urinary tract infection) Assessment & Plan: E. Coli. Cont zosyn and vanco per ID. (5) Severe malnutrition (6) Renal failure Assessment & Plan: Followed by nephrology - Dr Leone- see note. (7) Sepsis (8) Sacral decubitus ulcer, stage IV Assessment & Plan: S/P Debridement 12/14/16. Needs cardiology clearance for surgery-Dr Davenport aware. Cont zosyn and vanco per ID (9) Hypertension (10) Coronary artery disease (11) Atrial fibrillation (12) History of DVT (deep vein thrombosis) (13) Anemia (14) Diabetes mellitus Assessment & Plan: Hyperglycemia. Add novolog sliding scale. Status: not improved BRADLEY DAVIS Dec 15, 2016 18:28
[2016-12-15 20:00] VITALS: BP 147/67
[2016-12-15] MEDS ORDERED: Iron Sucrose 100 MG in NS 55 ML IVPB SCH (21:00)
--- NOTE | 2016-12-15 21:00 | Consultation ---
DATE OF CONSULTATION: CARDIOLOGY CONSULTATION CONSULTING PHYSICIAN: Hal Davenport M.D. REFERRING PHYSICIAN: Titi Cruz M.D. REASON FOR CONSULTATION: Management of pacemaker and atrial fibrillation. HISTORY OF PRESENT ILLNESS: The patient is an 86-year-old lady under my Cardiology care, who was brought to the hospital for generalized weakness as well as infected decubitus ulcer per wound care nurse. Family called the paramedics and was brought in to the [facility]. The patient subsequently was evaluated by Infectious Disease doctor and underwent debridement of her sacral decubitus. At the time of my evaluation, the patient is extremely weak in the bed with daughter at the bedside. PAST MEDICAL HISTORY: 1. Hypertension. 2. Diabetes. 3. Carotid artery disease. 4. History of non-Q-wave myocardial infarction. 5. Paroxysmal atrial fibrillation. 6. History of pacemaker. 7. History of DVT, on Xarelto. 8. Arthritis. 9. Renal failure. PAST SURGICAL HISTORY: Includes history of Biotronik pacemaker implantation as well as the sacral wound debridement as mentioned above. MEDICATIONS: Per reconciliation. SOCIAL HISTORY: She lives at home with several family members as well as a caregiver. One of her daughters, however, is the power of civil litigation attorney. REVIEW OF SYSTEMS: Review of systems cannot be performed as the patient is extremely weak. PHYSICAL EXAMINATION: VITAL SIGNS: Blood pressure 118/72, pulse is 60, respirations 18, and she is afebrile. HEAD AND NECK: Shows no JVD or carotid bruits. LUNGS: Clear. CARDIOVASCULAR: Shows regular S1 and S2 with no gallop or murmur. The pacemaker is at left subclavian. ABDOMEN: Soft. EXTREMITIES: Has a large sacral decubitus status post surgery. LABORATORY DATA: Labs show white count initially was 29,000 and currently is 22,000, hemoglobin 9.1, hematocrit 28, and platelet count is 180,000. Sodium is , potassium 2.9, BUN of 37, creatinine 0.9, and glucose of 172. Troponin is negative. BNP is 9562. ASSESSMENT AND PLAN: 1. Status post Biotronik pacemaker. The pacemaker is working normally over the telemetry. It was interrogated recently last month. It is a single chamber pacemaker. 2. Chronic atrial fibrillation. Rate is controlled on metoprolol 50 mg b.i.d., which is ventricular paced. The patient is off anticoagulation for severe bleeding. 3. Hypertension. On metoprolol 50 b.i.d., but currently is on hold in view of high white count, sepsis, and risk of going into septic shock. Blood pressure currently is stable. 4. Sacral decubitus. Status post excision and debridement of sacral ulcer and deep open bone biopsy of the sacrum by Dr. Steinberg. 5. History of anemia. 6. Chronic kidney disease. The current creatinine is normal, but BUN is 37. 7. Diastolic dysfunction. BNP of 8000. Thank you very much, Dr. Cruz, for allowing me to participate in the care of this patient. Please do not hesitate to contact me for any questions regarding my evaluation. Hal Davenport M.D. DR: NEDA JOB#: [id number] CC:
--- NOTE | 2016-12-15 21:17 | Infectious Diseases Prog Note ---
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 History of right lower extremity DVT. Anemia PLAN: continue the patient on IV vancomycin. and Zosyn d# 3 Monitor CBC. Monitor BMP. Monitor cultures (blood, urine, and wound). recommend surgical evaluation for debridement of the Sacral wound Subjective Constitutional: Denies: anorexia, chills, drenching sweats, fatigue, fever, no symptoms, other Allergies: Coded Allergies: NO KNOWN ALLERGIES (Unverified Allergy, Unknown, 09/05/15) Objective Vital Signs Last 24 Hour Vital Signs Date Time Temp Pulse Resp B/P Pulse Ox O2 Delivery O2 Flow Rate FiO2 12/15/16 19:32 71 16 Nasal Cannula 3.0 32 12/15/16 19:32 96 Nasal Cannula 3.0 32 12/15/16 19:32 Nasal Cannula 3.0 32 12/15/16 16:00 96.1 64 20 112/63 98 Room Air 12/15/16 12:37 97.1 62 19 118/72 3 Nasal Cannula 3.0 12/15/16 08:31 70 20 96 12/15/16 08:30 76 20 98 12/15/16 08:14 96.9 72 20 112/64 96 Nasal Cannula 3.0 12/15/16 07:26 Nasal Cannula 3.0 32 12/15/16 07:26 94 Nasal Cannula 3.0 32 12/15/16 07:25 70 16 Nasal Cannula 3.0 32 12/15/16 04:14 98.5 74 18 117/72 95 Nasal Cannula 3.0 12/15/16 04:00 69 12/15/16 00:09 98.1 78 17 123/82 93 Nasal Cannula 3.0 12/15/16 00:00 65 Height (Feet): 5 Height (Inches): 3.00 Weight (Pounds): 140 HEENT: atraumatic Respiratory/Chest: lungs clear Cardiovascular: normal rate Abdomen: soft, non tender Microbiology Date/Time Source Procedure Growth Status 12/13/16 09:30 Blood Blood Culture - Preliminary NO GROWTH AFTER 24 HOURS Resulted 12/13/16 09:15 Blood Blood Culture - Preliminary Staphylococcus Sp Coag Neg Resulted 12/13/16 05:00 Indwelling Cath Urine Culture - Final NO GROWTH AFTER 48 HOURS Complete 12/13/16 06:00 Sacral Swab Gram Stain - Final Resulted 12/13/16 06:00 Wound Culture - Preliminary Escherichia Coli Gram Negative Bacillus 2 Staphylococcus Sp Coag Neg Resulted 12/13/16 00:15 Sacral Lower Gram Stain - Final Resulted 12/13/16 00:15 Wound Culture - Preliminary Gram Negative Bacillus 1 Gram Positive Cocci Resulted Laboratory Tests Test 12/14/16 23:45 12/15/16 08:00 Vancomycin Level Trough 9.8 ug/mL (5.0-12.0) White Blood Count 22.0 K/UL (4.8-10.8) H Red Blood Count 3.31 M/UL (4.20-5.40) L Hemoglobin 9.1 G/DL (12.0-16.0) L Hematocrit 27.9 % (37.0-47.0) L Mean Corpuscular Volume 84 FL (80-99) Mean Corpuscular Hemoglobin 27.5 PG (27.0-31.0) Mean Corpuscular Hemoglobin Concent 32.6 G/DL (32.0-36.0) Red Cell Distribution Width 19.0 % (11.6-14.8) H Platelet Count 180 K/UL (150-450) Mean Platelet Volume 8.3 FL (6.5-10.1) Neutrophils (%) (Auto) % (45.0-75.0) Lymphocytes (%) (Auto) % (20.0-45.0) Monocytes (%) (Auto) % (1.0-10.0) Eosinophils (%) (Auto) % (0.0-3.0) Basophils (%) (Auto) % (0.0-2.0) Differential Total Cells Counted 100 Neutrophils % (Manual) 78 % (45-75) H Lymphocytes % (Manual) 5 % (20-45) L Monocytes % (Manual) 5 % (1-10) Eosinophils % (Manual) 0 % (0-3) Basophils % (Manual) 0 % (0-2) Band Neutrophils 12 % (0-8) H Platelet Estimate Adequate Platelet Morphology Normal Hypochromasia 1+ Anisocytosis 1+ Target Cells Occasional Sodium Level 145 mEQ/L (135-145) Potassium Level 2.9 mEQ/L (3.4-4.9) L Chloride Level 108 mEQ/L (98-107) H Carbon Dioxide Level 21 mEQ/L (20-30) Anion Gap 16 (5-15) H Blood Urea Nitrogen 37 mg/dL (7-23) H Creatinine 0.9 mg/dL (0.5-0.9) Estimat Glomerular Filtration Rate mL/min (>60) Glucose Level 172 mg/dL (74-106) H Uric Acid 7.6 mg/dL (3.0-7.5) H Calcium Level 10.9 mg/dL (8.6-10.2) H Phosphorus Level 1.9 mg/dL (2.5-4.8) L Magnesium Level 2.0 mg/dL (1.7-2.5) Total Bilirubin 0.5 mg/dL (0.0-1.2) Gamma Glutamyl Transpeptidase 40 U/L (5-36) H Aspartate Amino Transf (AST/SGOT) 7 U/L (5-40) Alanine Aminotransferase (ALT/SGPT) 14 U/L (3-33) Alkaline Phosphatase 89 U/L (35-104) Total Creatine Kinase 15 U/L (26-140) L C-Reactive Protein, Quantitative 15.4 mg/dL (< 0.5) H Pro-B-Type Natriuretic Peptide 7993 pg/mL (0-450) H Total Protein 4.7 g/dL (6.6-8.7) L Albumin 1.4 g/dL (3.5-5.2) L Globulin 3.3 g/dL Albumin/Globulin Ratio 0.4 (1.0-2.7) L Current Medications Medications (Trade) Dose Ordered Sig/David Route PRN Reason Start Time Stop Time Status Last Admin Dose Admin Acetaminophen (Tylenol) 650 mg Q4H PRN ORAL fever 12/15/16 09:45 01/14/17 09:44 Albuterol/ Ipratropium (DuoNeb 0.5-3(2.5)mg/3ml) 3 ml Q4H PRN HHN Shortness of Breath 12/15/16 09:45 12/20/16 09:44 Calcitonin [place] (Miacalcin) 1 sprays DAILY NASAL 12/15/16 11:00 01/14/17 10:59 12/15/16 14:25 Cefoxitin Sodium/ Dextrose (Mefoxin/D5W) 55 ml @ 110 mls/hr ONCE ONCE IV 12/16/16 08:00 12/16/16 08:29 Dextrose 1,000 ml @ 75 mls/hr [id number] IV 12/15/16 11:00 01/14/17 10:59 12/15/16 13:22 Dextrose (Dextrose 50%) STAT PRN IV Hypoglycemia 12/15/16 11:00 01/14/17 10:59 Docusate Sodium (Colace) 100 mg TWICE A DAY ORAL 12/15/16 11:00 01/14/17 10:59 Heparin Sodium (Porcine) (Heparin 5000 units/ml) 5,000 units EVERY 12 HOURS SUBQ 12/15/16 11:00 01/14/17 10:59 12/15/16 12:19 Insulin Aspart (NovoLOG) BEFORE MEALS AND HS SUBQ 12/15/16 11:30 01/14/17 11:29 Morphine Sulfate (Morphine Sulfate) 2 mg Q4H PRN IVP Moderate Pain (Pain Scale 4-6) 12/15/16 09:45 12/22/16 09:44 Nitroglycerin (Ntg) 0.4 mg Q5M PRN SL Prn Chest Pain 12/15/16 09:45 01/14/17 09:44 Ondansetron HCl (Zofran) 4 mg Q6H PRN IVP Nausea & Vomiting 12/15/16 11:45 01/14/17 11:44 Pantoprazole (Protonix) 40 mg DAILY IVP 12/15/16 11:00 01/14/17 10:59 12/15/16 12:19 Piperacillin Sod/ Tazobactam Sod 4.5 gm/Dextrose 110 ml @ 27.5 mls/hr EVERY 8 HOURS IVPB 12/15/16 14:00 12/20/16 13:59 12/15/16 14:24 Polyethylene Glycol (Miralax) 17 gm DAILYPRN PRN ORAL Constipation 12/15/16 17:45 01/14/17 17:44 Sodium Hypochlorite (Dakin's Half Strength) 1 applic DAILY TOPIC 12/15/16 11:00 01/14/17 10:59 12/15/16 14:54 Temazepam (Restoril) 15 mg HSPRN PRN ORAL Insomnia 12/15/16 17:45 12/22/16 17:44 Vancomycin HCl 1 ea 1 ea DAILY PRN MISC PER RX PROTOCOL 12/16/16 09:00 01/15/17 08:59 Vancomycin HCl/ Dextrose (Vancomycin/D5W) 275 ml @ 183.708 mls/hr Q24H IVPB 12/16/16 00:00 12/19/16 00:00 RADHA BAILON M.D. Dec 15, 2016 21:17
[2016-12-15] MEDS: Morphine Sulfate 2mg/ml Inj IVP PRN (23:10)
[2016-12-16] VITALS: BP 179/67
[2016-12-16] MEDS: Vancomycin 750 MG in D5W 275 ML IVPB SCH (00:28)
[2016-12-16 03:49] VITALS: BP 126/68
[2016-12-16] MEDS: Piperacillin/Tazobactam 4.5 GM in D5W 110 ML IVPB SCH ×3 (05:18→22:21)
[2016-12-16] MEDS: NovoLOG Insulin Flexpen SUBQ SCH ×4 (06:30→22:21)
[2016-12-16 07:09] LABS: INR 1.3 (0.9-1.1)
[2016-12-16 07:30] LABS: ALANINE AMINOTRANSFERASE 14 U/L (3-33); ALBUMIN/GLOBULIN RATIO 0.4 (1.0-2.7); ANION GAP 16 (5-15); ASPARTATE AMINO TRANSFERASE 12 U/L (5-40); CALCIUM 10.2 mg/dL (8.6-10.2); CARBON DIOXIDE 21 mEQ/L (20-30); CHLORIDE 105 mEQ/L (98-107); CREATININE 0.9 mg/dL (0.5-0.9); CRP QUANT 11.1 mg/dL (< 0.5); HEMOLYSIS 31; MAGNESIUM 1.8 mg/dL (1.7-2.5); PHOSPHORUS 3.6 mg/dL (2.5-4.8); SODIUM 142 mEQ/L (135-145); URIC ACID 7.6 mg/dL (3.0-7.5)
[2016-12-16 07:32] LABS: MEAN CORPUSCULAR HEMOGLOBIN 26.3 PG (27.0-31.0); MEAN CORPUSCULAR HGB CONC 31.3 G/DL (32.0-36.0); MEAN CORPUSCULAR VOLUME 84 FL (80-99); MEAN PLATELET VOLUME 9.4 FL (6.5-10.1); PLATELET COUNT 185 K/UL (150-450); RED BLOOD COUNT 3.29 M/UL (4.20-5.40); RED CELL DISTRIBUTION WIDTH 18.8 % (11.6-14.8); WHITE BLOOD COUNT 18.9 K/UL (4.8-10.8)
[2016-12-16] MEDS ORDERED: cefOXitin Sod 1 GM in D5W 55 ML IV ONE (08:00)
[2016-12-16 08:20] VITALS: BP 138/75
[2016-12-16] MEDS: Docusate 100mg cap ORAL SCH ×2 (09:00→17:31)
--- NOTE | 2016-12-16 09:13 | General Progress Note ---
Assessment/Plan Status: stable - from renal stand Assessment/Plan status: Acute renal failure- mainly prerenal improved HyperCalcemia- being treated Leukocytosis / sepsis, on antibiotics other conditions mentioned in PH: -History of anemia. -Hypertension. -Diabetes type 2. -History of coronary artery disease. -Renal failure. -Paroxysmal atrial fibrillation. -History of right lower extremity deep venous thrombosis. -Arthritis. -Alzheimer's dementia. -Pacemaker in situ. Plan: need NGT or GT feeding- NGT feeding ordered for now Hydrate- change IV to D5- Phos and K supplement now and as needed- [place]- Monitor renal parameters- per orders- discussed with RN Subjective ROS Limited/Unobtainable: Yes Allergies: Coded Allergies: NO KNOWN ALLERGIES (Unverified Allergy, Unknown, 09/05/15) Objective Last 24 Hour Vital Signs Date Time Temp Pulse Resp B/P Pulse Ox O2 Delivery O2 Flow Rate FiO2 12/16/16 07:47 Nasal Cannula 3.0 12/16/16 07:46 95 Nasal Cannula 3.0 12/16/16 07:45 69 18 Nasal Cannula 3.0 12/16/16 03:49 96.6 70 16 126/68 93 Simple Mask 3.0 12/16/16 00:00 97.2 72 18 179/67 92 Nasal Cannula 3.0 12/15/16 20:00 97.0 68 20 147/67 90 Room Air 12/15/16 19:32 71 16 Nasal Cannula 3.0 32 12/15/16 19:32 96 Nasal Cannula 3.0 32 12/15/16 19:32 Nasal Cannula 3.0 32 12/15/16 16:00 96.1 64 20 112/63 98 Room Air 12/15/16 12:37 97.1 62 19 118/72 3 Nasal Cannula 3.0 Intake and Output 12/15/16 12/16/16 19:00 07:00 Intake Total 185.0 ml 975.000 ml Output Total 350 ml Balance 185.0 ml 625.000 ml Intake IV Total 185.0 ml 975.000 ml Output Urine Total 350 ml Laboratory Tests 12/16/16 06:05: White Blood Count 18.9H, Red Blood Count 3.29L, Hemoglobin 8.6L, Hematocrit 27.7L, Mean Corpuscular Volume 84, Mean Corpuscular Hemoglobin 26.3L, Mean Corpuscular Hemoglobin Concent 31.3L, Red Cell Distribution Width 18.8H, Platelet Count 185, Mean Platelet Volume 9.4, Neutrophils (%) (Auto) , Lymphocytes (%) (Auto) , Monocytes (%) (Auto) , Eosinophils (%) (Auto) , Basophils (%) (Auto) , Neutrophils % (Manual) [Pending], Lymphocytes % (Manual) [Pending], Platelet Estimate [Pending], Platelet Morphology [Pending], Prothrombin Time 13.0H, Prothromb Time International Ratio 1.3H, Activated Partial Thromboplast Time 45H, Sodium Level 142, Potassium Level 4.0, Chloride Level 105, Carbon Dioxide Level 21, Anion Gap 16H, Blood Urea Nitrogen 35H, Creatinine 0.9, Estimat Glomerular Filtration Rate , Glucose Level 174H, Uric Acid 7.6H, Calcium Level 10.2, Phosphorus Level 3.6, Magnesium Level 1.8, Total Bilirubin 0.5, Aspartate Amino Transf (AST/SGOT) 12, Alanine Aminotransferase ( ALT/SGPT) 14, Alkaline Phosphatase 107H, C-Reactive Protein, Quantitative 11.1H , Pro-B-Type Natriuretic Peptide 7157H, Total Protein 5.0L, Albumin 1.6L, Globulin 3.4, Albumin/Globulin Ratio 0.4L Height (Feet): 5 Height (Inches): 3.00 Weight (Pounds): 140 General Appearance: no apparent distress Cardiovascular: normal rate Respiratory/Chest: decreased breath sounds Abdomen: soft Objective other PE not changed EARNEST CADET Dec 16, 2016 09:13
[2016-12-16 09:23] LABS: ANISOCYTOSIS 1+; BAND NEUTROPHILS % (MANUAL) 6 % (0-8); BASOPHILS % (MANUAL) 0 % (0-2); EOSINOPHILS % (MANUAL) 1 % (0-3); HYPOCHROMASIA 1+; LYMPHOCYTES % (MANUAL) 4 % (20-45); NEUTROPHILS % (MANUAL) 86 % (45-75); PLATELET ESTIMATE ADEQUATE; PLATELET MORPHOLOGY NORMAL; TOTAL CELLS COUNTED 100
[2016-12-16] MEDS: Heparin 5000 units/ml inj SUBQ SCH ×2 (10:22→22:24)
--- NOTE | 2016-12-16 10:32 | Infectious Diseases Prog Note ---
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 History of right lower extremity DVT. Anemia PLAN: continue the patient on IV vancomycin. and Zosyn d# 4 Monitor CBC. Monitor BMP. Monitor cultures (blood, wound). Subjective Constitutional: Denies: anorexia, chills, drenching sweats, fatigue, fever, no symptoms, other Allergies: Coded Allergies: NO KNOWN ALLERGIES (Unverified Allergy, Unknown, 09/05/15) Objective Vital Signs Last 24 Hour Vital Signs Date Time Temp Pulse Resp B/P Pulse Ox O2 Delivery O2 Flow Rate FiO2 12/16/16 08:20 97.4 63 19 138/75 88 Nasal Cannula 12/16/16 07:47 Nasal Cannula 3.0 12/16/16 07:46 95 Nasal Cannula 3.0 12/16/16 07:45 69 18 Nasal Cannula 3.0 12/16/16 03:49 96.6 70 16 126/68 93 Simple Mask 3.0 12/16/16 00:00 97.2 72 18 179/67 92 Nasal Cannula 3.0 12/15/16 20:00 97.0 68 20 147/67 90 Room Air 12/15/16 19:32 71 16 Nasal Cannula 3.0 32 12/15/16 19:32 96 Nasal Cannula 3.0 32 12/15/16 19:32 Nasal Cannula 3.0 32 12/15/16 16:00 96.1 64 20 112/63 98 Room Air 12/15/16 12:37 97.1 62 19 118/72 3 Nasal Cannula 3.0 Height (Feet): 5 Height (Inches): 3.00 Weight (Pounds): 140 HEENT: anicteric Respiratory/Chest: normal breath sounds Cardiovascular: normal peripheral pulses Abdomen: soft, non tender Laboratory Tests Test 12/16/16 06:05 White Blood Count 18.9 K/UL (4.8-10.8) H Red Blood Count 3.29 M/UL (4.20-5.40) L Hemoglobin 8.6 G/DL (12.0-16.0) L Hematocrit 27.7 % (37.0-47.0) L Mean Corpuscular Volume 84 FL (80-99) Mean Corpuscular Hemoglobin 26.3 PG (27.0-31.0) L Mean Corpuscular Hemoglobin Concent 31.3 G/DL (32.0-36.0) L Red Cell Distribution Width 18.8 % (11.6-14.8) H Platelet Count 185 K/UL (150-450) Mean Platelet Volume 9.4 FL (6.5-10.1) Neutrophils (%) (Auto) % (45.0-75.0) Lymphocytes (%) (Auto) % (20.0-45.0) Monocytes (%) (Auto) % (1.0-10.0) Eosinophils (%) (Auto) % (0.0-3.0) Basophils (%) (Auto) % (0.0-2.0) Differential Total Cells Counted 100 Neutrophils % (Manual) 86 % (45-75) H Lymphocytes % (Manual) 4 % (20-45) L Monocytes % (Manual) 3 % (1-10) Eosinophils % (Manual) 1 % (0-3) Basophils % (Manual) 0 % (0-2) Band Neutrophils 6 % (0-8) Platelet Estimate Adequate Platelet Morphology Normal Hypochromasia 1+ Anisocytosis 1+ Prothrombin Time 13.0 SEC (9.30-11.50) H Prothromb Time International Ratio 1.3 (0.9-1.1) H Activated Partial Thromboplast Time 45 SEC (23-33) H Sodium Level 142 mEQ/L (135-145) Potassium Level 4.0 mEQ/L (3.4-4.9) Chloride Level 105 mEQ/L (98-107) Carbon Dioxide Level 21 mEQ/L (20-30) Anion Gap 16 (5-15) H Blood Urea Nitrogen 35 mg/dL (7-23) H Creatinine 0.9 mg/dL (0.5-0.9) Estimat Glomerular Filtration Rate mL/min (>60) Glucose Level 174 mg/dL (74-106) H Uric Acid 7.6 mg/dL (3.0-7.5) H Calcium Level 10.2 mg/dL (8.6-10.2) Phosphorus Level 3.6 mg/dL (2.5-4.8) Magnesium Level 1.8 mg/dL (1.7-2.5) Total Bilirubin 0.5 mg/dL (0.0-1.2) Aspartate Amino Transf (AST/SGOT) 12 U/L (5-40) Alanine Aminotransferase (ALT/SGPT) 14 U/L (3-33) Alkaline Phosphatase 107 U/L (35-104) H C-Reactive Protein, Quantitative 11.1 mg/dL (< 0.5) H Pro-B-Type Natriuretic Peptide 7157 pg/mL (0-450) H Total Protein 5.0 g/dL (6.6-8.7) L Albumin 1.6 g/dL (3.5-5.2) L Globulin 3.4 g/dL Albumin/Globulin Ratio 0.4 (1.0-2.7) L Current Medications Medications (Trade) Dose Ordered Sig/David Route PRN Reason Start Time Stop Time Status Last Admin Dose Admin Acetaminophen (Tylenol) 650 mg Q4H PRN ORAL fever 12/15/16 09:45 01/14/17 09:44 Albuterol/ Ipratropium (DuoNeb 0.5-3(2.5)mg/3ml) 3 ml Q4H PRN HHN Shortness of Breath 12/15/16 09:45 12/20/16 09:44 Calcitonin [place] (Miacalcin) 1 sprays DAILY NASAL 12/15/16 11:00 01/14/17 10:59 12/16/16 10:24 Dextrose 1,000 ml @ 75 mls/hr [id number] IV 12/15/16 11:00 01/14/17 10:59 12/15/16 13:22 Dextrose (Dextrose 50%) STAT PRN IV Hypoglycemia 12/15/16 11:00 01/14/17 10:59 Docusate Sodium (Colace) 100 mg TWICE A DAY ORAL 12/15/16 11:00 01/14/17 10:59 Heparin Sodium (Porcine) (Heparin 5000 units/ml) 5,000 units EVERY 12 HOURS SUBQ 12/15/16 11:00 01/14/17 10:59 12/16/16 10:22 Insulin Aspart (NovoLOG) BEFORE MEALS AND HS SUBQ 12/15/16 11:30 01/14/17 11:29 Morphine Sulfate (Morphine Sulfate) 2 mg Q4H PRN IVP Moderate Pain (Pain Scale 4-6) 12/15/16 09:45 12/22/16 09:44 12/15/16 23:10 Nitroglycerin (Ntg) 0.4 mg Q5M PRN SL Prn Chest Pain 12/15/16 09:45 01/14/17 09:44 Ondansetron HCl (Zofran) 4 mg Q6H PRN IVP Nausea & Vomiting 12/15/16 11:45 01/14/17 11:44 Pantoprazole (Protonix) 40 mg DAILY IVP 12/15/16 11:00 01/14/17 10:59 12/15/16 12:19 Piperacillin Sod/ Tazobactam Sod 4.5 gm/Dextrose 110 ml @ 27.5 mls/hr EVERY 8 HOURS IVPB 12/15/16 14:00 12/20/16 13:59 12/16/16 05:18 Polyethylene Glycol (Miralax) 17 gm DAILYPRN PRN ORAL Constipation 12/15/16 17:45 01/14/17 17:44 Sodium Hypochlorite (Dakin's Half Strength) 1 applic DAILY TOPIC 12/15/16 11:00 01/14/17 10:59 12/15/16 14:54 Temazepam (Restoril) 15 mg HSPRN PRN ORAL Insomnia 12/15/16 17:45 12/22/16 17:44 Vancomycin HCl (Vanco rx to dose) 1 ea DAILY PRN MISC PER RX PROTOCOL 12/16/16 09:00 01/15/17 08:59 Vancomycin HCl/ Dextrose (Vancomycin/D5W) 275 ml @ 183.708 mls/hr Q24H IVPB 12/16/16 00:00 12/19/16 00:00 12/16/16 00:28 RADHA BAILON M.D. Dec 16, 2016 10:32
[2016-12-16] MEDS: Pantoprazole Inj IVP SCH (10:35)
--- NOTE | 2016-12-16 10:38 | Diagnostic Imaging Report ---
Indications: Nasogastric tube replacement Technique: Portable supine AP abdomen Findings: Comparison: 12/15/2016 Nasogastric tube has been removed from the tracheobronchial tree. It now descends over the left side of the cardiac silhouette, tip overlying a hiatal hernia of moderate size, above the diaphragm. Bowel gas pattern remains unremarkable. Lumbar vertebral degenerative changes, atherosclerotic arterial plaquing, asymmetric sclerosis of left sacroiliac joint margins all again noted. Randolph catheter in place. IMPRESSION: Nasogastric tube repositioned, tip appears to reside within a hiatal hernia above the diaphragm. Recommend advancement 10 cm. No other change
[2016-12-16] MEDS: Dakin's 0.25% (Half Strength) 16oz TOPIC SCH (10:43)
--- NOTE | 2016-12-16 10:48 | GI Progress Note ---
Assessment/Plan Problems: (1) Diabetes mellitus ICD Codes: E11.9 - Type 2 diabetes mellitus without complications SNOMED: 53650673 (2) Dysphagia ICD Codes: R13.10 - Dysphagia, unspecified SNOMED: 01183598, 430568608 (3) Encounter for PEG (percutaneous endoscopic gastrostomy) ICD Codes: Z43.1 - Encounter for attention to gastrostomy SNOMED: 560550027, 051196216 (4) Severe malnutrition ICD Codes: E43 - Unspecified severe protein-calorie malnutrition SNOMED: 11093452 (5) Hypoalbuminemia ICD Codes: E88.09 - Other disorders of plasma-protein metabolism, not elsewhere classified SNOMED: 429665114 (6) Leukocytosis ICD Codes: D72.829 - Elevated white blood cell count, unspecified SNOMED: 947726129, 723702627 (7) Iron deficiency ICD Codes: E61.1 - Iron deficiency SNOMED: 07444160 Status: unchanged Status Narrative Discussed with Dr. Miles. Assessment/Plan PEG refused by daughter insert NGT, start GTFs per dietary abx monitor H&H >> transfused prn PPI daily given history of severe gastritis iron panel >> unremarkable ST eval push PO bowel regime fu labs patient had EGD/colonoscopy last year 10/31. Subjective Subjective limited Objective Last 24 Hour Vital Signs Date Time Temp Pulse Resp B/P Pulse Ox O2 Delivery O2 Flow Rate FiO2 12/16/16 08:20 97.4 63 19 138/75 88 Nasal Cannula 12/16/16 07:47 Nasal Cannula 3.0 12/16/16 07:46 95 Nasal Cannula 3.0 12/16/16 07:45 69 18 Nasal Cannula 3.0 12/16/16 03:49 96.6 70 16 126/68 93 Simple Mask 3.0 12/16/16 00:00 97.2 72 18 179/67 92 Nasal Cannula 3.0 12/15/16 20:00 97.0 68 20 147/67 90 Room Air 12/15/16 19:32 71 16 Nasal Cannula 3.0 32 12/15/16 19:32 96 Nasal Cannula 3.0 32 12/15/16 19:32 Nasal Cannula 3.0 32 12/15/16 16:00 96.1 64 20 112/63 98 Room Air 12/15/16 12:37 97.1 62 19 118/72 3 Nasal Cannula 3.0 Intake and Output 12/15/16 12/16/16 19:00 07:00 Intake Total 185.0 ml 975.000 ml Output Total 350 ml Balance 185.0 ml 625.000 ml Intake IV Total 185.0 ml 975.000 ml Output Urine Total 350 ml Laboratory Tests Test 12/16/16 06:05 White Blood Count 18.9 K/UL (4.8-10.8) H Red Blood Count 3.29 M/UL (4.20-5.40) L Hemoglobin 8.6 G/DL (12.0-16.0) L Hematocrit 27.7 % (37.0-47.0) L Mean Corpuscular Volume 84 FL (80-99) Mean Corpuscular Hemoglobin 26.3 PG (27.0-31.0) L Mean Corpuscular Hemoglobin Concent 31.3 G/DL (32.0-36.0) L Red Cell Distribution Width 18.8 % (11.6-14.8) H Platelet Count 185 K/UL (150-450) Mean Platelet Volume 9.4 FL (6.5-10.1) Neutrophils (%) (Auto) % (45.0-75.0) Lymphocytes (%) (Auto) % (20.0-45.0) Monocytes (%) (Auto) % (1.0-10.0) Eosinophils (%) (Auto) % (0.0-3.0) Basophils (%) (Auto) % (0.0-2.0) Differential Total Cells Counted 100 Neutrophils % (Manual) 86 % (45-75) H Lymphocytes % (Manual) 4 % (20-45) L Monocytes % (Manual) 3 % (1-10) Eosinophils % (Manual) 1 % (0-3) Basophils % (Manual) 0 % (0-2) Band Neutrophils 6 % (0-8) Platelet Estimate Adequate Platelet Morphology Normal Hypochromasia 1+ Anisocytosis 1+ Prothrombin Time 13.0 SEC (9.30-11.50) H Prothromb Time International Ratio 1.3 (0.9-1.1) H Activated Partial Thromboplast Time 45 SEC (23-33) H Sodium Level 142 mEQ/L (135-145) Potassium Level 4.0 mEQ/L (3.4-4.9) Chloride Level 105 mEQ/L (98-107) Carbon Dioxide Level 21 mEQ/L (20-30) Anion Gap 16 (5-15) H Blood Urea Nitrogen 35 mg/dL (7-23) H Creatinine 0.9 mg/dL (0.5-0.9) Estimat Glomerular Filtration Rate mL/min (>60) Glucose Level 174 mg/dL (74-106) H Uric Acid 7.6 mg/dL (3.0-7.5) H Calcium Level 10.2 mg/dL (8.6-10.2) Phosphorus Level 3.6 mg/dL (2.5-4.8) Magnesium Level 1.8 mg/dL (1.7-2.5) Total Bilirubin 0.5 mg/dL (0.0-1.2) Aspartate Amino Transf (AST/SGOT) 12 U/L (5-40) Alanine Aminotransferase (ALT/SGPT) 14 U/L (3-33) Alkaline Phosphatase 107 U/L (35-104) H C-Reactive Protein, Quantitative 11.1 mg/dL (< 0.5) H Pro-B-Type Natriuretic Peptide 7157 pg/mL (0-450) H Total Protein 5.0 g/dL (6.6-8.7) L Albumin 1.6 g/dL (3.5-5.2) L Globulin 3.4 g/dL Albumin/Globulin Ratio 0.4 (1.0-2.7) L Height (Feet): 5 Height (Inches): 3.00 Weight (Pounds): 140 General Appearance: no apparent distress, thin Cardiovascular: normal rate Respiratory/Chest: normal breath sounds, no respiratory distress Abdominal Exam: other - NGT Objective DATE OF PROCEDURE: 10/23/2015 SURGEON: Ruben Miles M.D. PROCEDURE: Upper endoscopy with biopsy and colonoscopy with biopsy and polypectomy. INDICATION: Anemia, screening colonoscopy evaluation, abdominal pain, and GERD. SUMMARY OF FINDINGS: 1. Severe gastritis, status post biopsy. 2. Duodenal polyp, status post biopsy. 3. Inflammatory looking polyp in the antrum of the stomach, status post biopsy. 4. Paraesophageal hernia. 5. Two colonic polyp removed, see above for details. 6. Diverticulosis. 7. Internal hemorrhoids. Lyndsay Torres N.P. Dec 16, 2016 10:48
--- NOTE | 2016-12-16 12:20 | Pulmonology Progress Note ---
Assessment/Plan Assessment/Plan ASSESSMENT sepsis acute encephalopathy 2 to sepsis, possibly underlying on advanced dementia renal failure UTI Alzheimer dementia sacral decub, POA s/p debridement of sacral decub 12/14 possible OM sacral wound, s/p bone biopsy dysphagia e/lyte imbalance ( hypo K, hyper Na, hyper Ca) severe protein calorie malnutrition ( prealbumin -3) HTN CAD AFib chronic Hx of DVT RLE anemia, iron deficiency s/p Biotronik pacemaker diastolic dysfunction multiple decubiti ( POA): R heel stage 4, Left lateral malleolus stage 4, sacral stage 4, R lateral knee stage 4 PLAN OF CARE [facility] floor IVF CT head negative abx, urine cx + E coli, repeated negative CXR negative, wound cx + E coli, GNB, SCON, blood cx + SCON ID follows bone biopsy result pending plastic surgery follows, wound care as per plastic surgery recommendation nephro follows, monitor renal palmers, lytes, replacement as per nephro, Ca trending down GI follows failed swallow eval initially PEG was planned for today, but daughter refused per GI- NGT to be isnerted and start feeding had EGD and colon 10/2015 bowel regimen PPI BS management with SS of insulin, [id number] cardio follows rate controlled off a/coagulation due to severe bleeding BP stable without any anti HTN meds, BB on hold as per cardio DVT, GI prophylaxis case discussed and evaluated by supervising physician Subjective Allergies: Coded Allergies: NO KNOWN ALLERGIES (Unverified Allergy, Unknown, 09/05/15) Subjective leukocytosis trending down, still significant, afebrile no signs of respiratory distress on O2 via NC, pulse oximetry stable Objective Last 24 Hour Vital Signs Date Time Temp Pulse Resp B/P Pulse Ox O2 Delivery O2 Flow Rate FiO2 12/16/16 08:20 97.4 63 19 138/75 88 Nasal Cannula 12/16/16 07:47 Nasal Cannula 3.0 12/16/16 07:46 95 Nasal Cannula 3.0 12/16/16 07:45 69 18 Nasal Cannula 3.0 12/16/16 03:49 96.6 70 16 126/68 93 Simple Mask 3.0 12/16/16 00:00 97.2 72 18 179/67 92 Nasal Cannula 3.0 12/15/16 20:00 97.0 68 20 147/67 90 Room Air 12/15/16 19:32 71 16 Nasal Cannula 3.0 32 12/15/16 19:32 96 Nasal Cannula 3.0 32 12/15/16 19:32 Nasal Cannula 3.0 32 12/15/16 16:00 96.1 64 20 112/63 98 Room Air 12/15/16 12:37 97.1 62 19 118/72 3 Nasal Cannula 3.0 Intake and Output 12/15/16 12/16/16 19:00 07:00 Intake Total 185.0 ml 975.000 ml Output Total 350 ml Balance 185.0 ml 625.000 ml Intake IV Total 185.0 ml 975.000 ml Output Urine Total 350 ml General Appearance: no acute distress, other - frail, elderly bedriden AA female, poorly responsive HEENT: normocephalic, atraumatic, anicteric, other - O2 via NC, NGT in , intact Respiratory/Chest: chest wall non-tender, no respiratory distress, no accessory muscle use, decreased breath sounds Cardiovascular: normal peripheral pulses, normal rate, regular rhythm, no JVD Abdomen: normal bowel sounds, soft, non tender, non distended Genitourinary: normal external genitalia Extremities: other - trace edema BLE, BLE ulcers with dressigns C/D/I Skin: other - multipel decub: sacral st 4, R heel stage4, Left lateral malleolus stage 4, R lateral knee stage 4 Laboratory Tests 12/16/16 06:05: White Blood Count 18.9H, Red Blood Count 3.29L, Hemoglobin 8.6L, Hematocrit 27.7L, Mean Corpuscular Volume 84, Mean Corpuscular Hemoglobin 26.3L, Mean Corpuscular Hemoglobin Concent 31.3L, Red Cell Distribution Width 18.8H, Platelet Count 185, Mean Platelet Volume 9.4, Neutrophils (%) (Auto) , Lymphocytes (%) (Auto) , Monocytes (%) (Auto) , Eosinophils (%) (Auto) , Basophils (%) (Auto) , Differential Total Cells Counted 100, Neutrophils % ( Manual) 86H, Lymphocytes % (Manual) 4L, Monocytes % (Manual) 3, Eosinophils % ( Manual) 1, Basophils % (Manual) 0, Band Neutrophils 6, Platelet Estimate Adequate, Platelet Morphology Normal, Hypochromasia 1+, Anisocytosis 1+, Prothrombin Time 13.0H, Prothromb Time International Ratio 1.3H, Activated Partial Thromboplast Time 45H, Sodium Level 142, Potassium Level 4.0, Chloride Level 105, Carbon Dioxide Level 21, Anion Gap 16H, Blood Urea Nitrogen 35H, Creatinine 0.9, Estimat Glomerular Filtration Rate , Glucose Level 174H, Uric Acid 7.6H, Calcium Level 10.2, Phosphorus Level 3.6, Magnesium Level 1.8, Total Bilirubin 0.5, Aspartate Amino Transf (AST/SGOT) 12, Alanine Aminotransferase ( ALT/SGPT) 14, Alkaline Phosphatase 107H, C-Reactive Protein, Quantitative 11.1H , Pro-B-Type Natriuretic Peptide 7157H, Total Protein 5.0L, Albumin 1.6L, Globulin 3.4, Albumin/Globulin Ratio 0.4L Current Medications Medications (Trade) Dose Ordered Sig/David Route PRN Reason Start Time Stop Time Status Last Admin Dose Admin Acetaminophen (Tylenol) 650 mg Q4H PRN ORAL fever 12/15/16 09:45 01/14/17 09:44 Albuterol/ Ipratropium (DuoNeb 0.5-3(2.5)mg/3ml) 3 ml Q4H PRN HHN Shortness of Breath 12/15/16 09:45 12/20/16 09:44 Calcitonin [place] (Miacalcin) 1 sprays DAILY NASAL 12/15/16 11:00 01/14/17 10:59 12/16/16 10:24 Dextrose 1,000 ml @ 75 mls/hr [id number] IV 12/15/16 11:00 01/14/17 10:59 12/15/16 13:22 Dextrose (Dextrose 50%) STAT PRN IV Hypoglycemia 12/15/16 11:00 01/14/17 10:59 Docusate Sodium (Colace) 100 mg TWICE A DAY ORAL 12/15/16 11:00 01/14/17 10:59 Heparin Sodium (Porcine) (Heparin 5000 units/ml) 5,000 units EVERY 12 HOURS SUBQ 12/15/16 11:00 01/14/17 10:59 12/16/16 10:22 Insulin Aspart (NovoLOG) BEFORE MEALS AND HS SUBQ 12/15/16 11:30 01/14/17 11:29 Morphine Sulfate (Morphine Sulfate) 2 mg Q4H PRN IVP Moderate Pain (Pain Scale 4-6) 12/15/16 09:45 12/22/16 09:44 12/15/16 23:10 Nitroglycerin (Ntg) 0.4 mg Q5M PRN SL Prn Chest Pain 12/15/16 09:45 01/14/17 09:44 Ondansetron HCl (Zofran) 4 mg Q6H PRN IVP Nausea & Vomiting 12/15/16 11:45 01/14/17 11:44 Pantoprazole (Protonix) 40 mg DAILY IVP 12/15/16 11:00 01/14/17 10:59 12/16/16 10:35 Piperacillin Sod/ Tazobactam Sod 4.5 gm/Dextrose 110 ml @ 27.5 mls/hr EVERY 8 HOURS IVPB 12/15/16 14:00 12/20/16 13:59 12/16/16 05:18 Polyethylene Glycol (Miralax) 17 gm DAILYPRN PRN ORAL Constipation 12/15/16 17:45 01/14/17 17:44 Sodium Hypochlorite (Dakin's Half Strength) 1 applic DAILY TOPIC 12/15/16 11:00 01/14/17 10:59 12/16/16 10:43 Temazepam (Restoril) 15 mg HSPRN PRN ORAL Insomnia 12/15/16 17:45 12/22/16 17:44 Vancomycin HCl (Vanco rx to dose) 1 ea DAILY PRN MISC PER RX PROTOCOL 12/16/16 09:00 01/15/17 08:59 Vancomycin HCl/ Dextrose (Vancomycin/D5W) 275 ml @ 183.708 mls/hr Q24H IVPB 12/16/16 00:00 12/19/16 00:00 12/16/16 00:28 Demario (Shanda Leblanc NP Dec 16, 2016 12:20
[2016-12-16] MEDS: Morphine Sulfate 2mg/ml Inj IVP PRN ×2 (12:22→22:34)
[2016-12-16 12:29] VITALS: BP 132/60
--- NOTE | 2016-12-16 13:45 | Diagnostic Imaging Report ---
Indications: Is a gastric tube repositioning Technique: Portal supine AP abdomen at 1221 Findings: Comparison: 1022 Nasogastric tube has been advanced, tip now below the diaphragm, proximal port still overlying likely within the lumen of hiatal hernia. No other change. IMPRESSION: Improved positioning of nasogastric tube. Recommend additional 5-10 cm of advancement.
--- NOTE | 2016-12-16 15:31 | Cardiac Electrophysiology PN ---
Assessment/Plan Assessment/Plan 1. Status post Biotronik single chamber pacemaker. It was interrogated recently last month with NL function.. 2. Chronic atrial fibrillation. Rate is controlled. Resume metoprolol 50 mg b.i.d. when BP more stable.The patient is off anticoagulation for severe bleeding. 3. Hypertension. On metoprolol 50 b.i.d., but currently is on hold in view of high white count, sepsis, and risk of going into septic shock. 4. Sacral decubitus. Status post excision and debridement of sacral ulcer and deep open bone biopsy of the sacrum by Dr. Steinberg. 5. History of anemia. 6. Chronic kidney disease. The current creatinine is normal, but BUN is 37. 7. Diastolic dysfunction. BNP of 8000. 8. Dysphagia. Removed the NG tube as it was curled in the moth to be replaced DW RN and daughter at bedside. Subjective Subjective More alert today. RN and daughter at bedside. No events overnight. Objective Last 24 Hour Vital Signs Date Time Temp Pulse Resp B/P Pulse Ox O2 Delivery O2 Flow Rate FiO2 12/16/16 12:29 96.4 115 20 132/60 92 Nasal Cannula 3.0 12/16/16 08:20 97.4 63 19 138/75 88 Nasal Cannula 12/16/16 07:47 Nasal Cannula 3.0 12/16/16 07:46 95 Nasal Cannula 3.0 12/16/16 07:45 69 18 Nasal Cannula 3.0 12/16/16 03:49 96.6 70 16 126/68 93 Simple Mask 3.0 12/16/16 00:00 97.2 72 18 179/67 92 Nasal Cannula 3.0 12/15/16 20:00 97.0 68 20 147/67 90 Room Air 12/15/16 19:32 71 16 Nasal Cannula 3.0 32 12/15/16 19:32 96 Nasal Cannula 3.0 32 12/15/16 19:32 Nasal Cannula 3.0 32 12/15/16 16:00 96.1 64 20 112/63 98 Room Air Intake and Output 12/15/16 12/16/16 19:00 07:00 Intake Total 185.0 ml 975.000 ml Output Total 350 ml Balance 185.0 ml 625.000 ml Intake IV Total 185.0 ml 975.000 ml Output Urine Total 350 ml Laboratory Tests Test 12/16/16 06:05 White Blood Count 18.9 K/UL (4.8-10.8) H Red Blood Count 3.29 M/UL (4.20-5.40) L Hemoglobin 8.6 G/DL (12.0-16.0) L Hematocrit 27.7 % (37.0-47.0) L Mean Corpuscular Volume 84 FL (80-99) Mean Corpuscular Hemoglobin 26.3 PG (27.0-31.0) L Mean Corpuscular Hemoglobin Concent 31.3 G/DL (32.0-36.0) L Red Cell Distribution Width 18.8 % (11.6-14.8) H Platelet Count 185 K/UL (150-450) Mean Platelet Volume 9.4 FL (6.5-10.1) Neutrophils (%) (Auto) % (45.0-75.0) Lymphocytes (%) (Auto) % (20.0-45.0) Monocytes (%) (Auto) % (1.0-10.0) Eosinophils (%) (Auto) % (0.0-3.0) Basophils (%) (Auto) % (0.0-2.0) Differential Total Cells Counted 100 Neutrophils % (Manual) 86 % (45-75) H Lymphocytes % (Manual) 4 % (20-45) L Monocytes % (Manual) 3 % (1-10) Eosinophils % (Manual) 1 % (0-3) Basophils % (Manual) 0 % (0-2) Band Neutrophils 6 % (0-8) Platelet Estimate Adequate Platelet Morphology Normal Hypochromasia 1+ Anisocytosis 1+ Prothrombin Time 13.0 SEC (9.30-11.50) H Prothromb Time International Ratio 1.3 (0.9-1.1) H Activated Partial Thromboplast Time 45 SEC (23-33) H Sodium Level 142 mEQ/L (135-145) Potassium Level 4.0 mEQ/L (3.4-4.9) Chloride Level 105 mEQ/L (98-107) Carbon Dioxide Level 21 mEQ/L (20-30) Anion Gap 16 (5-15) H Blood Urea Nitrogen 35 mg/dL (7-23) H Creatinine 0.9 mg/dL (0.5-0.9) Estimat Glomerular Filtration Rate mL/min (>60) Glucose Level 174 mg/dL (74-106) H Uric Acid 7.6 mg/dL (3.0-7.5) H Calcium Level 10.2 mg/dL (8.6-10.2) Phosphorus Level 3.6 mg/dL (2.5-4.8) Magnesium Level 1.8 mg/dL (1.7-2.5) Total Bilirubin 0.5 mg/dL (0.0-1.2) Aspartate Amino Transf (AST/SGOT) 12 U/L (5-40) Alanine Aminotransferase (ALT/SGPT) 14 U/L (3-33) Alkaline Phosphatase 107 U/L (35-104) H C-Reactive Protein, Quantitative 11.1 mg/dL (< 0.5) H Pro-B-Type Natriuretic Peptide 7157 pg/mL (0-450) H Total Protein 5.0 g/dL (6.6-8.7) L Albumin 1.6 g/dL (3.5-5.2) L Globulin 3.4 g/dL Albumin/Globulin Ratio 0.4 (1.0-2.7) L Microbiology Date/Time Source Procedure Growth Status 12/14/16 20:30 Wound Gram Stain - Final Resulted 12/14/16 20:30 Wound Aerobic Culture Pending Resulted 12/14/16 20:30 Wound Anaerobic Culture Pending Resulted 12/14/16 20:30 Bone Gram Stain - Final Resulted 12/14/16 20:30 Aerobic Culture - Preliminary Gram Negative Bacillus 1 Resulted 12/14/16 20:30 Bone Anaerobic Culture Pending Resulted Objective HEAD AND NECK: Shows no JVD or carotid bruits.NG tube curled in mouth. LUNGS: Clear. CARDIOVASCULAR: Shows regular S1 and S2 with no gallop or murmur. The pacemaker is at left subclavian. ABDOMEN: Soft. EXTREMITIES: Large sacral decubitus status post surgery. STAR ROA Dec 16, 2016 15:31
[2016-12-16 16:00] VITALS: BP 127/66
--- NOTE | 2016-12-16 16:29 | Diagnostic Imaging Report ---
Indications: Is a gastric tube advancement Technique: Portable supine AP abdomen at 1505 Findings: Comparison: 1221 Nasogastric tube remains unchanged in position, proximal port in region of hiatal hernia, tip below diaphragm and likely within stomach. No other change. IMPRESSION: No change from prior exam
--- NOTE | 2016-12-16 18:36 | Internal Med Progress Note ---
Subjective Date of Service: Dec 16, 2016 Physician Name Bradley Davis Attending Physician Titi Cruz MD Current Medications Medications (Trade) Dose Ordered Sig/David Route PRN Reason Start Time Stop Time Status Last Admin Dose Admin Acetaminophen (Tylenol) 650 mg Q4H PRN ORAL fever 12/15/16 09:45 01/14/17 09:44 Albuterol/ Ipratropium (DuoNeb 0.5-3(2.5)mg/3ml) 3 ml Q4H PRN HHN Shortness of Breath 12/15/16 09:45 12/20/16 09:44 Calcitonin [place] (Miacalcin) 1 sprays DAILY NASAL 12/15/16 11:00 01/14/17 10:59 12/16/16 10:24 Dextrose 1,000 ml @ 75 mls/hr [id number] IV 12/15/16 11:00 01/14/17 10:59 12/16/16 14:25 Dextrose (Dextrose 50%) STAT PRN IV Hypoglycemia 12/15/16 11:00 01/14/17 10:59 Docusate Sodium (Colace) 100 mg TWICE A DAY ORAL 12/15/16 11:00 01/14/17 10:59 Heparin Sodium (Porcine) (Heparin 5000 units/ml) 5,000 units EVERY 12 HOURS SUBQ 12/15/16 11:00 01/14/17 10:59 12/16/16 10:22 Insulin Aspart (NovoLOG) BEFORE MEALS AND HS SUBQ 12/15/16 11:30 01/14/17 11:29 Morphine Sulfate (Morphine Sulfate) 2 mg Q4H PRN IVP Moderate Pain (Pain Scale 4-6) 12/15/16 09:45 12/22/16 09:44 12/16/16 12:22 Nitroglycerin (Ntg) 0.4 mg Q5M PRN SL Prn Chest Pain 12/15/16 09:45 01/14/17 09:44 Ondansetron HCl (Zofran) 4 mg Q6H PRN IVP Nausea & Vomiting 12/15/16 11:45 01/14/17 11:44 Pantoprazole (Protonix) 40 mg DAILY IVP 12/15/16 11:00 01/14/17 10:59 12/16/16 10:35 Piperacillin Sod/ Tazobactam Sod 4.5 gm/Dextrose 110 ml @ 27.5 mls/hr EVERY 8 HOURS IVPB 12/15/16 14:00 12/20/16 13:59 12/16/16 14:24 Polyethylene Glycol (Miralax) 17 gm DAILYPRN PRN ORAL Constipation 12/15/16 17:45 01/14/17 17:44 Sodium Hypochlorite (Dakin's Half Strength) 1 applic DAILY TOPIC 12/15/16 11:00 01/14/17 10:59 12/16/16 10:43 Temazepam (Restoril) 15 mg HSPRN PRN ORAL Insomnia 12/15/16 17:45 12/22/16 17:44 Vancomycin HCl (Vanco rx to dose) 1 ea DAILY PRN MISC PER RX PROTOCOL 12/16/16 09:00 01/15/17 08:59 Vancomycin HCl/ Dextrose (Vancomycin/D5W) 275 ml @ 183.708 mls/hr Q24H IVPB 12/16/16 00:00 12/19/16 00:00 12/16/16 00:28 Allergies: Coded Allergies: NO KNOWN ALLERGIES (Unverified Allergy, Unknown, 09/05/15) ROS Limited/Unobtainable: Yes Subjective 86 YO F admitted with sepsis. S/P debridement sacral decubitus ulcer on . Cover for Int Med-Dr Cruz. PEG placement scheduled for today cancelled per daughter request. Objective Last Vital Signs Date Time Temp Pulse Resp B/P Pulse Ox O2 Delivery O2 Flow Rate FiO2 12/16/16 16:00 97.0 69 22 127/66 95 Nasal Cannula 2.0 12/15/16 19:32 32 Laboratory Tests Test 12/16/16 06:05 White Blood Count 18.9 K/UL (4.8-10.8) H Red Blood Count 3.29 M/UL (4.20-5.40) L Hemoglobin 8.6 G/DL (12.0-16.0) L Hematocrit 27.7 % (37.0-47.0) L Mean Corpuscular Volume 84 FL (80-99) Mean Corpuscular Hemoglobin 26.3 PG (27.0-31.0) L Mean Corpuscular Hemoglobin Concent 31.3 G/DL (32.0-36.0) L Red Cell Distribution Width 18.8 % (11.6-14.8) H Platelet Count 185 K/UL (150-450) Mean Platelet Volume 9.4 FL (6.5-10.1) Neutrophils (%) (Auto) % (45.0-75.0) Lymphocytes (%) (Auto) % (20.0-45.0) Monocytes (%) (Auto) % (1.0-10.0) Eosinophils (%) (Auto) % (0.0-3.0) Basophils (%) (Auto) % (0.0-2.0) Differential Total Cells Counted 100 Neutrophils % (Manual) 86 % (45-75) H Lymphocytes % (Manual) 4 % (20-45) L Monocytes % (Manual) 3 % (1-10) Eosinophils % (Manual) 1 % (0-3) Basophils % (Manual) 0 % (0-2) Band Neutrophils 6 % (0-8) Platelet Estimate Adequate Platelet Morphology Normal Hypochromasia 1+ Anisocytosis 1+ Prothrombin Time 13.0 SEC (9.30-11.50) H Prothromb Time International Ratio 1.3 (0.9-1.1) H Activated Partial Thromboplast Time 45 SEC (23-33) H Sodium Level 142 mEQ/L (135-145) Potassium Level 4.0 mEQ/L (3.4-4.9) Chloride Level 105 mEQ/L (98-107) Carbon Dioxide Level 21 mEQ/L (20-30) Anion Gap 16 (5-15) H Blood Urea Nitrogen 35 mg/dL (7-23) H Creatinine 0.9 mg/dL (0.5-0.9) Estimat Glomerular Filtration Rate mL/min (>60) Glucose Level 174 mg/dL (74-106) H Uric Acid 7.6 mg/dL (3.0-7.5) H Calcium Level 10.2 mg/dL (8.6-10.2) Phosphorus Level 3.6 mg/dL (2.5-4.8) Magnesium Level 1.8 mg/dL (1.7-2.5) Total Bilirubin 0.5 mg/dL (0.0-1.2) Aspartate Amino Transf (AST/SGOT) 12 U/L (5-40) Alanine Aminotransferase (ALT/SGPT) 14 U/L (3-33) Alkaline Phosphatase 107 U/L (35-104) H C-Reactive Protein, Quantitative 11.1 mg/dL (< 0.5) H Pro-B-Type Natriuretic Peptide 7157 pg/mL (0-450) H Total Protein 5.0 g/dL (6.6-8.7) L Albumin 1.6 g/dL (3.5-5.2) L Globulin 3.4 g/dL Albumin/Globulin Ratio 0.4 (1.0-2.7) L Microbiology Date/Time Source Procedure Growth Status 12/14/16 20:30 Wound Gram Stain - Final Resulted 12/14/16 20:30 Wound Aerobic Culture Pending Resulted 12/14/16 20:30 Wound Anaerobic Culture Pending Resulted 12/14/16 20:30 Bone Gram Stain - Final Resulted 12/14/16 20:30 Aerobic Culture - Preliminary Gram Negative Bacillus 1 Resulted 12/14/16 20:30 Bone Anaerobic Culture Pending Resulted Intake and Output 12/15/16 12/16/16 19:00 07:00 Intake Total 185.0 ml 975.000 ml Output Total 350 ml Balance 185.0 ml 625.000 ml Intake IV Total 185.0 ml 975.000 ml Output Urine Total 350 ml Objective General Appearance: mild distress, lethargic, thin EENT: PERRL/EOMI, normal ENT inspection Neck: non-tender, normal alignment Cardiovascular: normal peripheral pulses, no gallop/murmur, no JVD, irregularly irregular Respiratory/Chest: chest wall non-tender, crackles/rales, rhonchi - bilaterally , expiratory wheezing Abdomen: normal bowel sounds, non tender, soft, no organomegaly, no mass Extremities: normal range of motion, non-tender Skin: normal pigmentation, warm/dry Assessment/Plan Problem List: (1) Dysphagia Assessment & Plan: Daughter refused PEG-See GI note-Dr Miles. Start NG feeds. (2) Hypokalemia Assessment & Plan: See nephrology note. (3) Hypernatremia (4) UTI (urinary tract infection) Assessment & Plan: E. Coli. Cont zosyn and vanco per ID. (5) Severe malnutrition (6) Renal failure Assessment & Plan: Followed by nephrology - Dr Leone- see note. (7) Sepsis (8) Sacral decubitus ulcer, stage IV Assessment & Plan: S/P Debridement 12/14/16. Cont zosyn and vanco per ID (9) Hypertension (10) Coronary artery disease (11) Atrial fibrillation (12) History of DVT (deep vein thrombosis) (13) Anemia (14) Diabetes mellitus Assessment & Plan: Hyperglycemia. Add novolog sliding scale. Status: not improved BRADLEY DAVIS Dec 16, 2016 18:36
[2016-12-16 20:00] VITALS: BP 131/72
[2016-12-16] MEDS ORDERED: Tubing IV Secondary IV ONE ×2 (22:43→22:46)
[2016-12-16] MEDS ORDERED: D5 1/2NS 1000ml IV ONE (22:46)
[2016-12-16] MEDS ORDERED: NS 275ml ONE (22:46)
[2016-12-17] MEDS: Vancomycin 750 MG in D5W 275 ML IVPB SCH (00:04)
[2016-12-17 00:46] VITALS: BP 121/63
[2016-12-17 04:00] VITALS: BP 115/68
[2016-12-17] MEDS: Morphine Sulfate 2mg/ml Inj IVP PRN ×5 (04:17→22:50)
[2016-12-17] MEDS: NovoLOG Insulin Flexpen SUBQ SCH ×4 (06:30→21:00)
[2016-12-17] MEDS: Piperacillin/Tazobactam 4.5 GM in D5W 110 ML IVPB SCH ×3 (06:54→21:16)
[2016-12-17 08:09] LABS: ANION GAP 17 (5-15); CALCIUM 9.5 mg/dL (8.6-10.2); CARBON DIOXIDE 21 mEQ/L (20-30); CHLORIDE 99 mEQ/L (98-107); HEMOLYSIS 7; POTASSIUM 3.2 mEQ/L (3.4-4.9); SODIUM 137 mEQ/L (135-145)
[2016-12-17 08:32] LABS: MEAN CORPUSCULAR HEMOGLOBIN 27.2 PG (27.0-31.0); MEAN CORPUSCULAR HGB CONC 32.4 G/DL (32.0-36.0); MEAN CORPUSCULAR VOLUME 84 FL (80-99); MEAN PLATELET VOLUME 8.5 FL (6.5-10.1); PLATELET COUNT 165 K/UL (150-450); RED BLOOD COUNT 3.42 M/UL (4.20-5.40); RED CELL DISTRIBUTION WIDTH 19.3 % (11.6-14.8); WHITE BLOOD COUNT 17.4 K/UL (4.8-10.8)
[2016-12-17 08:58] VITALS: BP 126/68
[2016-12-17] MEDS: Docusate 100mg cap ORAL SCH ×2 (09:00→18:00)
[2016-12-17] MEDS: Pantoprazole Inj IVP SCH (10:07)
[2016-12-17] MEDS: Dakin's 0.25% (Half Strength) 16oz TOPIC SCH (10:07)
[2016-12-17] MEDS: Heparin 5000 units/ml inj SUBQ SCH ×2 (10:08→21:15)
[2016-12-17 12:00] VITALS: BP 141/75
[2016-12-17 12:52] LABS: EOSINOPHILS % (MANUAL) 2 % (0-3); LYMPHOCYTES % (MANUAL) 12 % (20-45); NEUTROPHILS % (MANUAL) 85 % (45-75); NUCLEATED RED BLOOD CELLS 2 /100 WBC; TOTAL CELLS COUNTED 100
[2016-12-17 12:53] LABS: ANISOCYTOSIS 1+; HYPOCHROMASIA 1+
--- NOTE | 2016-12-17 12:57 | General Progress Note ---
Assessment/Plan Status: stable - from renal stand Status Narrative poor nutritional state. Assessment/Plan status: Acute renal failure- mainly prerenal improved HyperCalcemia- being treated Leukocytosis / sepsis, on antibiotics other conditions mentioned in PH: -History of anemia. -Hypertension. -Diabetes type 2. -History of coronary artery disease. -Renal failure. -Paroxysmal atrial fibrillation. -History of right lower extremity deep venous thrombosis. -Arthritis. -Alzheimer's dementia. -Pacemaker in situ. Plan: need NGT or GT feeding- NGT feeding ordered for now- seems family is now agreeable to PEG, hence NGT on hold Hydrate- change IV to D5- Phos and K supplement now and as needed- [place]- Monitor renal parameters- per orders- discussed with RN Subjective ROS Limited/Unobtainable: Yes Allergies: Coded Allergies: NO KNOWN ALLERGIES (Unverified Allergy, Unknown, 09/05/15) Objective Last 24 Hour Vital Signs Date Time Temp Pulse Resp B/P Pulse Ox O2 Delivery O2 Flow Rate FiO2 12/17/16 12:00 97.5 69 20 141/75 93 Nasal Cannula 12/17/16 08:58 96.6 76 18 126/68 91 Nasal Cannula 12/17/16 07:41 98 Nasal Cannula 2.0 28 12/17/16 07:41 78 18 Nasal Cannula 2.0 28 12/17/16 07:41 Nasal Cannula 2.0 28 12/17/16 04:47 97.5 12/17/16 04:00 97.2 76 19 115/68 96 Nasal Cannula 12/17/16 00:46 97.5 70 21 121/63 97 Nasal Cannula 12/16/16 20:00 97.0 68 20 131/72 90 Nasal Cannula 2.0 12/16/16 19:33 Nasal Cannula 2.0 28 12/16/16 19:32 68 18 Nasal Cannula 2.0 28 12/16/16 19:32 96 Nasal Cannula 2.0 28 12/16/16 16:00 97.0 69 22 127/66 95 Nasal Cannula 2.0 Intake and Output 12/16/16 12/17/16 19:00 07:00 Intake Total 750 ml 983.500 ml Output Total 200 ml 300 ml Balance 550 ml 683.500 ml Intake IV Total 750 ml 983.500 ml Output Urine Total 200 ml 300 ml Laboratory Tests 12/17/16 06:30: White Blood Count 17.4H, Red Blood Count 3.42L, Hemoglobin 9.3L, Hematocrit 28.7L, Mean Corpuscular Volume 84, Mean Corpuscular Hemoglobin 27.2, Mean Corpuscular Hemoglobin Concent 32.4, Red Cell Distribution Width 19.3H, Platelet Count 165, Mean Platelet Volume 8.5, Neutrophils (%) (Auto) , Lymphocytes (%) (Auto) , Monocytes (%) (Auto) , Eosinophils (%) (Auto) , Basophils (%) (Auto) , Neutrophils % (Manual) [Pending], Lymphocytes % (Manual) [Pending], Platelet Estimate [Pending], Platelet Morphology [Pending], Sodium Level 137, Potassium Level 3.2L, Chloride Level 99, Carbon Dioxide Level 21, Anion Gap 17H, Blood Urea Nitrogen 30H, Creatinine 1.0H, Estimat Glomerular Filtration Rate , Glucose Level 145H, Calcium Level 9.5 Height (Feet): 5 Height (Inches): 3.00 Weight (Pounds): 140 General Appearance: no apparent distress Neck: stiff neck Cardiovascular: normal rate Respiratory/Chest: decreased breath sounds Abdomen: soft Objective other PE not changed EARNEST CADET Dec 17, 2016 12:57
[2016-12-17 13:24] LABS: BAND NEUTROPHILS % (MANUAL) 0 % (0-8); BASOPHILS % (MANUAL) 0 % (0-2); PLATELET ESTIMATE ADEQUATE
[2016-12-17 13:25] LABS: PLATELET MORPHOLOGY NORMAL
[2016-12-17] MEDS: D5W w/KCl 20mEq 1,000 ML IV SCH (13:37)
--- NOTE | 2016-12-17 14:56 | Internal Med Progress Note ---
Subjective Date of Service: Dec 17, 2016 Physician Name Ricky Davis Attending Physician Titi Cruz MD Current Medications Medications (Trade) Dose Ordered Sig/David Route PRN Reason Start Time Stop Time Status Last Admin Dose Admin Acetaminophen (Tylenol) 650 mg Q4H PRN ORAL fever 12/15/16 09:45 01/14/17 09:44 Albuterol/ Ipratropium (DuoNeb 0.5-3(2.5)mg/3ml) 3 ml Q4H PRN HHN Shortness of Breath 12/15/16 09:45 12/20/16 09:44 Calcitonin [place] (Miacalcin) 1 sprays DAILY NASAL 12/15/16 11:00 01/14/17 10:59 12/17/16 10:07 Dextrose (Dextrose 50%) STAT PRN IV Hypoglycemia 12/15/16 11:00 01/14/17 10:59 Dextrose/ Electrolytes (D5W w/KCl 20mEq) 1,000 ml @ 75 mls/hr [id number] IV 12/17/16 13:00 01/16/17 12:59 12/17/16 13:37 Docusate Sodium (Colace) 100 mg TWICE A DAY ORAL 12/15/16 11:00 01/14/17 10:59 Heparin Sodium (Porcine) (Heparin 5000 units/ml) 5,000 units EVERY 12 HOURS SUBQ 12/15/16 11:00 01/14/17 10:59 12/17/16 10:08 Insulin Aspart (NovoLOG) BEFORE MEALS AND HS SUBQ 12/15/16 11:30 01/14/17 11:29 Morphine Sulfate (Morphine Sulfate) 2 mg Q4H PRN IVP Moderate Pain (Pain Scale 4-6) 12/15/16 09:45 12/22/16 09:44 12/17/16 14:45 Nitroglycerin (Ntg) 0.4 mg Q5M PRN SL Prn Chest Pain 12/15/16 09:45 01/14/17 09:44 Ondansetron HCl (Zofran) 4 mg Q6H PRN IVP Nausea & Vomiting 12/15/16 11:45 01/14/17 11:44 Pantoprazole (Protonix) 40 mg DAILY IVP 12/15/16 11:00 01/14/17 10:59 12/17/16 10:07 Piperacillin Sod/ Tazobactam Sod 4.5 gm/Dextrose 110 ml @ 27.5 mls/hr EVERY 8 HOURS IVPB 12/15/16 14:00 12/20/16 13:59 12/17/16 13:38 Polyethylene Glycol (Miralax) 17 gm DAILYPRN PRN ORAL Constipation 12/15/16 17:45 01/14/17 17:44 Sodium Hypochlorite (Dakin's Half Strength) 1 applic DAILY TOPIC 12/15/16 11:00 01/14/17 10:59 12/17/16 10:07 Temazepam (Restoril) 15 mg HSPRN PRN ORAL Insomnia 12/15/16 17:45 12/22/16 17:44 Vancomycin HCl 1 ea 1 ea DAILY PRN MISC PER RX PROTOCOL 12/16/16 09:00 01/15/17 08:59 Vancomycin HCl/ Dextrose (Vancomycin/D5W) 275 ml @ 183.708 mls/hr Q24H IVPB 12/16/16 00:00 12/19/16 00:00 12/17/16 00:04 Allergies: Coded Allergies: NO KNOWN ALLERGIES (Unverified Allergy, Unknown, 09/05/15) Subjective 86 YO F admitted with sepsis. S/P debridement sacral decubitus ulcer on . Cover for Int Med-Dr Cruz. PEG placement cancelled per daughter request. Objective Last Vital Signs Date Time Temp Pulse Resp B/P Pulse Ox O2 Delivery O2 Flow Rate FiO2 12/17/16 12:00 97.5 69 20 141/75 93 Nasal Cannula 12/17/16 07:41 2.0 28 Laboratory Tests Test 12/17/16 06:30 White Blood Count 17.4 K/UL (4.8-10.8) H Red Blood Count 3.42 M/UL (4.20-5.40) L Hemoglobin 9.3 G/DL (12.0-16.0) L Hematocrit 28.7 % (37.0-47.0) L Mean Corpuscular Volume 84 FL (80-99) Mean Corpuscular Hemoglobin 27.2 PG (27.0-31.0) Mean Corpuscular Hemoglobin Concent 32.4 G/DL (32.0-36.0) Red Cell Distribution Width 19.3 % (11.6-14.8) H Platelet Count 165 K/UL (150-450) Mean Platelet Volume 8.5 FL (6.5-10.1) Neutrophils (%) (Auto) % (45.0-75.0) Lymphocytes (%) (Auto) % (20.0-45.0) Monocytes (%) (Auto) % (1.0-10.0) Eosinophils (%) (Auto) % (0.0-3.0) Basophils (%) (Auto) % (0.0-2.0) Differential Total Cells Counted 100 Neutrophils % (Manual) 85 % (45-75) H Lymphocytes % (Manual) 12 % (20-45) L Monocytes % (Manual) 1 % (1-10) Eosinophils % (Manual) 2 % (0-3) Basophils % (Manual) 0 % (0-2) Band Neutrophils 0 % (0-8) Nucleated Red Blood Cells 2 /100 WBC Platelet Estimate Adequate Platelet Morphology Normal Hypochromasia 1+ Anisocytosis 1+ Sodium Level 137 mEQ/L (135-145) Potassium Level 3.2 mEQ/L (3.4-4.9) L Chloride Level 99 mEQ/L (98-107) Carbon Dioxide Level 21 mEQ/L (20-30) Anion Gap 17 (5-15) H Blood Urea Nitrogen 30 mg/dL (7-23) H Creatinine 1.0 mg/dL (0.5-0.9) H Estimat Glomerular Filtration Rate mL/min (>60) Glucose Level 145 mg/dL (74-106) H Calcium Level 9.5 mg/dL (8.6-10.2) Microbiology Date/Time Source Procedure Growth Status 12/14/16 20:30 Wound Gram Stain - Final Resulted 12/14/16 20:30 Aerobic Culture - Preliminary Escherichia Coli Gram Negative Ike Resulted 12/14/16 20:30 Wound Anaerobic Culture - Preliminary Resulted 12/14/16 20:30 Bone Gram Stain - Final Resulted 12/14/16 20:30 Aerobic Culture - Final Escherichia Coli Resulted 12/14/16 20:30 Bone Anaerobic Culture - Preliminary NO GROWTH AFTER 48 HOURS Resulted Intake and Output 12/16/16 12/17/16 19:00 07:00 Intake Total 750 ml 983.500 ml Output Total 200 ml 300 ml Balance 550 ml 683.500 ml Intake IV Total 750 ml 983.500 ml Output Urine Total 200 ml 300 ml Objective General Appearance: mild distress, lethargic, thin EENT: PERRL/EOMI, normal ENT inspection Neck: non-tender, normal alignment Cardiovascular: normal peripheral pulses, no gallop/murmur, no JVD, irregularly irregular Respiratory/Chest: chest wall non-tender, crackles/rales, rhonchi - bilaterally , expiratory wheezing Abdomen: normal bowel sounds, non tender, soft, no organomegaly, no mass Extremities: normal range of motion, non-tender Skin: normal pigmentation, warm/dry Assessment/Plan Problem List: (1) Dysphagia Assessment & Plan: Daughter refused PEG-See GI note-Dr Miles. Start NG feeds. (2) Hypokalemia Assessment & Plan: See nephrology note. (3) Hypernatremia (4) UTI (urinary tract infection) Assessment & Plan: E. Coli. Cont zosyn and vanco per ID. (5) Severe malnutrition (6) Renal failure Assessment & Plan: Followed by nephrology - Dr Leone- see note. (7) Sepsis (8) Sacral decubitus ulcer, stage IV Assessment & Plan: S/P Debridement 12/14/16. Cont zosyn and vanco per ID (9) Hypertension (10) Coronary artery disease (11) Atrial fibrillation (12) History of DVT (deep vein thrombosis) (13) Anemia (14) Diabetes mellitus Assessment & Plan: Hyperglycemia. Add novolog sliding scale. Status: not improved RICKY DAVIS Dec 17, 2016 14:56
[2016-12-17 16:13] VITALS: BP 117/69
--- NOTE | 2016-12-17 18:47 | Pulmonology Progress Note ---
Assessment/Plan Assessment/Plan ASSESSMENT sepsis acute encephalopathy 2 to sepsis, possibly underlying on advanced dementia renal failure UTI Alzheimer dementia sacral decub, POA s/p debridement of sacral decub 12/14 possible OM sacral wound, s/p bone biopsy dysphagia e/lyte imbalance ( hypo K, hyper Na, hyper Ca) severe protein calorie malnutrition ( prealbumin -3) HTN CAD AFib chronic Hx of DVT RLE anemia, iron deficiency s/p Biotronik pacemaker diastolic dysfunction multiple decubiti ( POA): R heel stage 4, Left lateral malleolus stage 4, sacral stage 4, R lateral knee stage 4 PLAN OF CARE [facility] floor IVF CT head negative abx, urine cx + E coli, repeated negative CXR negative, wound cx + E coli, GNB, SCON, blood cx + SCON ID follows bone biopsy + E coli plastic surgery follows, wound care as per plastic surgery recommendation nephro follows, monitor renal palmers, lytes, replacement as per nephro, Ca trending down GI follows failed swallow eval initially PEG was planned , but daughter refused per GI- NGT with tube feeding had EGD and colon 10/2015 bowel regimen PPI BS management with SS of insulin, [id number] cardio follows rate controlled ; off a/coagulation due to severe bleeding BP stable without any anti HTN meds, BB on hold as per cardio DVT, GI prophylaxis case discussed and evaluated by supervising physician Subjective Allergies: Coded Allergies: NO KNOWN ALLERGIES (Unverified Allergy, Unknown, 09/05/15) Subjective leukocytosis trending down, still significant, afebrile no signs of respiratory distress on O2 via NC, pulse oximetry stable Objective Last 24 Hour Vital Signs Date Time Temp Pulse Resp B/P Pulse Ox O2 Delivery O2 Flow Rate FiO2 12/17/16 16:13 97.2 80 19 117/69 99 Nasal Cannula 2.0 12/17/16 12:00 97.5 69 20 141/75 93 Nasal Cannula 12/17/16 08:58 96.6 76 18 126/68 91 Nasal Cannula 12/17/16 07:41 98 Nasal Cannula 2.0 28 12/17/16 07:41 78 18 Nasal Cannula 2.0 28 12/17/16 07:41 Nasal Cannula 2.0 28 12/17/16 04:47 97.5 12/17/16 04:00 97.2 76 19 115/68 96 Nasal Cannula 12/17/16 00:46 97.5 70 21 121/63 97 Nasal Cannula 12/16/16 20:00 97.0 68 20 131/72 90 Nasal Cannula 2.0 12/16/16 19:33 Nasal Cannula 2.0 28 12/16/16 19:32 68 18 Nasal Cannula 2.0 28 12/16/16 19:32 96 Nasal Cannula 2.0 28 Intake and Output 12/16/16 12/17/16 19:00 07:00 Intake Total 750 ml 983.500 ml Output Total 200 ml 300 ml Balance 550 ml 683.500 ml Intake IV Total 750 ml 983.500 ml Output Urine Total 200 ml 300 ml Objective General Appearance: no acute distress, other - frail, elderly bedriden AA female, poorly responsive HEENT: normocephalic, atraumatic, anicteric, other - O2 via NC, NGT in , intact Respiratory/Chest: chest wall non-tender, no respiratory distress, no accessory muscle use, decreased breath sounds Cardiovascular: normal peripheral pulses, normal rate, regular rhythm, no JVD Abdomen: normal bowel sounds, soft, non tender, non distended Genitourinary: normal external genitalia Extremities: other - trace edema BLE, BLE ulcers with dressigns C/D/I Skin: other - multipel decub: sacral st 4, R heel stage4, Left lateral malleolus stage 4, R lateral knee stage 4 Microbiology Date/Time Source Procedure Growth Status 12/14/16 20:30 Wound Gram Stain - Final Resulted 12/14/16 20:30 Aerobic Culture - Preliminary Escherichia Coli Gram Negative Ike Resulted 12/14/16 20:30 Wound Anaerobic Culture - Preliminary Resulted 12/14/16 20:30 Bone Gram Stain - Final Resulted 12/14/16 20:30 Aerobic Culture - Final Escherichia Coli Resulted 12/14/16 20:30 Bone Anaerobic Culture - Preliminary NO GROWTH AFTER 48 HOURS Resulted Laboratory Tests 12/17/16 06:30: White Blood Count 17.4H, Red Blood Count 3.42L, Hemoglobin 9.3L, Hematocrit 28.7L, Mean Corpuscular Volume 84, Mean Corpuscular Hemoglobin 27.2, Mean Corpuscular Hemoglobin Concent 32.4, Red Cell Distribution Width 19.3H, Platelet Count 165, Mean Platelet Volume 8.5, Neutrophils (%) (Auto) , Lymphocytes (%) (Auto) , Monocytes (%) (Auto) , Eosinophils (%) (Auto) , Basophils (%) (Auto) , Differential Total Cells Counted 100, Neutrophils % ( Manual) 85H, Lymphocytes % (Manual) 12L, Monocytes % (Manual) 1, Eosinophils % ( Manual) 2, Basophils % (Manual) 0, Band Neutrophils 0, Nucleated Red Blood Cells 2, Platelet Estimate Adequate, Platelet Morphology Normal, Hypochromasia 1 +, Anisocytosis 1+, Sodium Level 137, Potassium Level 3.2L, Chloride Level 99, Carbon Dioxide Level 21, Anion Gap 17H, Blood Urea Nitrogen 30H, Creatinine 1.0H , Estimat Glomerular Filtration Rate , Glucose Level 145H, Calcium Level 9.5 Current Medications Medications (Trade) Dose Ordered Sig/David Route PRN Reason Start Time Stop Time Status Last Admin Dose Admin Acetaminophen (Tylenol) 650 mg Q4H PRN ORAL fever 12/15/16 09:45 01/14/17 09:44 Albuterol/ Ipratropium (DuoNeb 0.5-3(2.5)mg/3ml) 3 ml Q4H PRN HHN Shortness of Breath 12/15/16 09:45 12/20/16 09:44 Calcitonin [place] (Miacalcin) 1 sprays DAILY NASAL 12/15/16 11:00 01/14/17 10:59 12/17/16 10:07 Dextrose (Dextrose 50%) STAT PRN IV Hypoglycemia 12/15/16 11:00 01/14/17 10:59 Dextrose/ Electrolytes (D5W w/KCl 20mEq) 1,000 ml @ 75 mls/hr [id number] IV 12/17/16 13:00 01/16/17 12:59 12/17/16 13:37 Docusate Sodium (Colace) 100 mg TWICE A DAY ORAL 12/15/16 11:00 01/14/17 10:59 Heparin Sodium (Porcine) (Heparin 5000 units/ml) 5,000 units EVERY 12 HOURS SUBQ 12/15/16 11:00 01/14/17 10:59 12/17/16 10:08 Insulin Aspart (NovoLOG) BEFORE MEALS AND HS SUBQ 12/15/16 11:30 01/14/17 11:29 Morphine Sulfate (Morphine Sulfate) 2 mg Q4H PRN IVP Moderate Pain (Pain Scale 4-6) 12/15/16 09:45 12/22/16 09:44 12/17/16 14:45 Nitroglycerin (Ntg) 0.4 mg Q5M PRN SL Prn Chest Pain 12/15/16 09:45 01/14/17 09:44 Ondansetron HCl (Zofran) 4 mg Q6H PRN IVP Nausea & Vomiting 12/15/16 11:45 01/14/17 11:44 Pantoprazole (Protonix) 40 mg DAILY IVP 12/15/16 11:00 01/14/17 10:59 12/17/16 10:07 Piperacillin Sod/ Tazobactam Sod 4.5 gm/Dextrose 110 ml @ 27.5 mls/hr EVERY 8 HOURS IVPB 12/15/16 14:00 12/20/16 13:59 12/17/16 13:38 Polyethylene Glycol (Miralax) 17 gm DAILYPRN PRN ORAL Constipation 12/15/16 17:45 01/14/17 17:44 Sodium Hypochlorite (Dakin's Half Strength) 1 applic DAILY TOPIC 12/15/16 11:00 01/14/17 10:59 12/17/16 10:07 Temazepam (Restoril) 15 mg HSPRN PRN ORAL Insomnia 12/15/16 17:45 12/22/16 17:44 Vancomycin HCl 1 ea 1 ea DAILY PRN MISC PER RX PROTOCOL 12/16/16 09:00 01/15/17 08:59 Vancomycin HCl/ Dextrose (Vancomycin/D5W) 275 ml @ 183.708 mls/hr Q24H IVPB 12/16/16 00:00 12/19/16 00:00 12/17/16 00:04 Shanda Hanks NP ([facility]) Dec 17, 2016 18:47
--- NOTE | 2016-12-17 19:48 | Cardiac Electrophysiology PN ---
Assessment/Plan Assessment/Plan 1. Status post Biotronik single chamber pacemaker. Interrogated last month with NL function.. 2. Chronic atrial fibrillation. Start metoprolol 25 mg b.i.d. after PEG is in for better rate control. Keep off anticoagulation for severe bleeding. 3. Hypertension. Start metoprolol 25 mg b.i.d. after NG tube PEG is in 4. Sacral decubitus. Status post excision and debridement of sacral ulcer and deep open bone biopsy of the sacrum by Dr. Steinberg. 5. History of anemia. 6. Chronic kidney disease. The current creatinine is normal, but BUN is 37. 7. Diastolic dysfunction. BNP of 8000. 8. Dysphagia. PEG on Monday DW RN and daughter at bedside. Subjective Subjective Comfortable in NAD. RN and daughter at bedside. No events overnight. Objective Last 24 Hour Vital Signs Date Time Temp Pulse Resp B/P Pulse Ox O2 Delivery O2 Flow Rate FiO2 12/17/16 19:22 78 18 Nasal Cannula 2.0 28 12/17/16 19:21 Nasal Cannula 2.0 28 12/17/16 19:21 98 Nasal Cannula 2.0 28 12/17/16 16:13 97.2 80 19 117/69 99 Nasal Cannula 2.0 12/17/16 12:00 97.5 69 20 141/75 93 Nasal Cannula 12/17/16 08:58 96.6 76 18 126/68 91 Nasal Cannula 12/17/16 07:41 98 Nasal Cannula 2.0 12/17/16 07:41 78 18 Nasal Cannula 2.0 28 12/17/16 07:41 Nasal Cannula 2.0 28 12/17/16 04:47 97.5 12/17/16 04:00 97.2 76 19 115/68 96 Nasal Cannula 12/17/16 00:46 97.5 70 21 121/63 97 Nasal Cannula 12/16/16 20:00 97.0 68 20 131/72 90 Nasal Cannula 2.0 Intake and Output 12/16/16 12/17/16 19:00 07:00 Intake Total 750 ml 983.500 ml Output Total 200 ml 300 ml Balance 550 ml 683.500 ml Intake IV Total 750 ml 983.500 ml Output Urine Total 200 ml 300 ml Laboratory Tests Test 12/17/16 06:30 White Blood Count 17.4 K/UL (4.8-10.8) H Red Blood Count 3.42 M/UL (4.20-5.40) L Hemoglobin 9.3 G/DL (12.0-16.0) L Hematocrit 28.7 % (37.0-47.0) L Mean Corpuscular Volume 84 FL (80-99) Mean Corpuscular Hemoglobin 27.2 PG (27.0-31.0) Mean Corpuscular Hemoglobin Concent 32.4 G/DL (32.0-36.0) Red Cell Distribution Width 19.3 % (11.6-14.8) H Platelet Count 165 K/UL (150-450) Mean Platelet Volume 8.5 FL (6.5-10.1) Neutrophils (%) (Auto) % (45.0-75.0) Lymphocytes (%) (Auto) % (20.0-45.0) Monocytes (%) (Auto) % (1.0-10.0) Eosinophils (%) (Auto) % (0.0-3.0) Basophils (%) (Auto) % (0.0-2.0) Differential Total Cells Counted 100 Neutrophils % (Manual) 85 % (45-75) H Lymphocytes % (Manual) 12 % (20-45) L Monocytes % (Manual) 1 % (1-10) Eosinophils % (Manual) 2 % (0-3) Basophils % (Manual) 0 % (0-2) Band Neutrophils 0 % (0-8) Nucleated Red Blood Cells 2 /100 WBC Platelet Estimate Adequate Platelet Morphology Normal Hypochromasia 1+ Anisocytosis 1+ Sodium Level 137 mEQ/L (135-145) Potassium Level 3.2 mEQ/L (3.4-4.9) L Chloride Level 99 mEQ/L (98-107) Carbon Dioxide Level 21 mEQ/L (20-30) Anion Gap 17 (5-15) H Blood Urea Nitrogen 30 mg/dL (7-23) H Creatinine 1.0 mg/dL (0.5-0.9) H Estimat Glomerular Filtration Rate mL/min (>60) Glucose Level 145 mg/dL (74-106) H Calcium Level 9.5 mg/dL (8.6-10.2) Microbiology Date/Time Source Procedure Growth Status 12/14/16 20:30 Wound Gram Stain - Final Resulted 12/14/16 20:30 Aerobic Culture - Preliminary Escherichia Coli Gram Negative Ike Resulted 12/14/16 20:30 Wound Anaerobic Culture - Preliminary Resulted 12/14/16 20:30 Bone Gram Stain - Final Resulted 12/14/16 20:30 Aerobic Culture - Final Escherichia Coli Resulted 12/14/16 20:30 Bone Anaerobic Culture - Preliminary NO GROWTH AFTER 48 HOURS Resulted Objective HEAD AND NECK: Shows no JVD or carotid bruits. LUNGS: Clear. CARDIOVASCULAR: Shows regular S1 and S2 with no gallop or murmur. The pacemaker is at left subclavian. ABDOMEN: Soft. EXTREMITIES: Large sacral decubitus status post surgery. STAR ROA Dec 17, 2016 19:48
[2016-12-17 20:00] VITALS: BP 103/63
[2016-12-17] MEDS ORDERED: Metoprolol 25mg tab ORAL SCH (21:00)
[2016-12-18] VITALS: BP 95/54
[2016-12-18 04:00] VITALS: BP 117/64
[2016-12-18] MEDS: D5W w/KCl 20mEq 1,000 ML IV SCH (04:00)
[2016-12-18 05:20] LABS: MEAN CORPUSCULAR HEMOGLOBIN 27.7 PG (27.0-31.0); MEAN CORPUSCULAR HGB CONC 33.1 G/DL (32.0-36.0); MEAN CORPUSCULAR VOLUME 84 FL (80-99); MEAN PLATELET VOLUME 8.4 FL (6.5-10.1); PLATELET COUNT 175 K/UL (150-450); RED BLOOD COUNT 3.21 M/UL (4.20-5.40); RED CELL DISTRIBUTION WIDTH 18.7 % (11.6-14.8); WHITE BLOOD COUNT 16.3 K/UL (4.8-10.8)
[2016-12-18 05:27] LABS: INR 1.3 (0.9-1.1); PROTHROMBIN TIME 13.2 SEC (9.30-11.50)
[2016-12-18] MEDS: Piperacillin/Tazobactam 4.5 GM in D5W 110 ML IVPB SCH (05:27)
[2016-12-18 05:45] LABS: ANION GAP 17 (5-15); CALCIUM 9.3 mg/dL (8.6-10.2); CARBON DIOXIDE 18 mEQ/L (20-30); CHLORIDE 100 mEQ/L (98-107); CREATININE 0.9 mg/dL (0.5-0.9); HEMOLYSIS 60; POTASSIUM 4.1 mEQ/L (3.4-4.9); SODIUM 135 mEQ/L (135-145)
[2016-12-18 06:08] LABS: ALANINE AMINOTRANSFERASE 12 U/L (3-33); ALBUMIN/GLOBULIN RATIO 0.7 (1.0-2.7); ANION GAP 19 (5-15); ASPARTATE AMINO TRANSFERASE 17 U/L (5-40); CALCIUM 9.3 mg/dL (8.6-10.2); CARBON DIOXIDE 18 mEQ/L (20-30); CHLORIDE 97 mEQ/L (98-107); CRP QUANT 10.4 mg/dL (< 0.5); HEMOLYSIS 62; MAGNESIUM 1.6 mg/dL (1.7-2.5); PHOSPHORUS 2.7 mg/dL (2.5-4.8); SODIUM 134 mEQ/L (135-145); TOTAL PROTEIN 4.6 g/dL (6.6-8.7); URIC ACID 6.1 mg/dL (3.0-7.5)
[2016-12-18] MEDS: NovoLOG Insulin Flexpen SUBQ SCH ×4 (06:30→21:00)
--- NOTE | 2016-12-18 07:22 | General Progress Note ---
Assessment/Plan Problem List: (1) Urinary tract infection ICD Codes: N39.0 - Urinary tract infection SNOMED: 53045366 (2) History of DVT (deep vein thrombosis) ICD Codes: Z86.718 - History of DVT (deep vein thrombosis) SNOMED: 713768023 (3) Altered mental status ICD Codes: R41.82 - Altered mental status, unspecified SNOMED: 037135137 (4) Diabetes mellitus ICD Codes: E11.9 - Type 2 diabetes mellitus without complications SNOMED: 61088816 (5) Dysphagia ICD Codes: R13.10 - Dysphagia, unspecified SNOMED: 15450783, 738391200 Assessment/Plan abx ivf d/w family, plan PEG tomorrow Subjective ROS Limited/Unobtainable: No Allergies: Coded Allergies: NO KNOWN ALLERGIES (Unverified Allergy, Unknown, 09/05/15) Objective Last 24 Hour Vital Signs Date Time Temp Pulse Resp B/P Pulse Ox O2 Delivery O2 Flow Rate FiO2 12/18/16 00:00 98.1 72 20 95/54 97 Nasal Cannula 2.0 12/17/16 20:00 97.7 76 18 103/63 99 Room Air 12/17/16 19:22 78 18 Nasal Cannula 2.0 28 12/17/16 19:21 Nasal Cannula 2.0 28 12/17/16 19:21 98 Nasal Cannula 2.0 28 12/17/16 16:13 97.2 80 19 117/69 99 Nasal Cannula 2.0 12/17/16 12:00 97.5 69 20 141/75 93 Nasal Cannula 12/17/16 08:58 96.6 76 18 126/68 91 Nasal Cannula 12/17/16 07:41 98 Nasal Cannula 2.0 28 12/17/16 07:41 78 18 Nasal Cannula 2.0 28 12/17/16 07:41 Nasal Cannula 2.0 28 Intake and Output 12/17/16 12/18/16 19:00 07:00 Intake Total 970.0 ml 791.5 ml Output Total 850 ml 500 ml Balance 120.0 ml 291.5 ml Intake IV Total 970.0 ml 791.5 ml Output Urine Total 850 ml 500 ml Laboratory Tests 12/17/16 23:50: Vancomycin Level Trough 22.7H 12/18/16 04:35: White Blood Count 16.3H, Red Blood Count 3.21L, Hemoglobin 8.9L, Hematocrit 26.9L, Mean Corpuscular Volume 84, Mean Corpuscular Hemoglobin 27.7, Mean Corpuscular Hemoglobin Concent 33.1, Red Cell Distribution Width 18.7H, Platelet Count 175, Mean Platelet Volume 8.4, Neutrophils (%) (Auto) , Lymphocytes (%) (Auto) , Monocytes (%) (Auto) , Eosinophils (%) (Auto) , Basophils (%) (Auto) , Prothrombin Time 13.2H, Prothromb Time International Ratio 1.3H, Activated Partial Thromboplast Time 43H, Sodium Level 135, Potassium Level 4.1, Chloride Level 100, Carbon Dioxide Level 18L, Anion Gap 17H , Blood Urea Nitrogen 24H, Creatinine 0.9, Estimat Glomerular Filtration Rate , Glucose Level 71L, Uric Acid 6.1, Calcium Level 9.3, Phosphorus Level 2.7, Magnesium Level 1.6L, Total Bilirubin 0.7, Aspartate Amino Transf (AST/SGOT) 17 , Alanine Aminotransferase (ALT/SGPT) 12, Alkaline Phosphatase 71, C-Reactive Protein, Quantitative 10.4H, Pro-B-Type Natriuretic Peptide 8003H, Total Protein 4.6L, Albumin 1.9L, Globulin 2.7, Albumin/Globulin Ratio 0.7L Height (Feet): 5 Height (Inches): 3.00 Weight (Pounds): 140 General Appearance: confused EENT: normal ENT inspection Neck: supple Cardiovascular: normal rate Respiratory/Chest: decreased breath sounds Abdomen: normal bowel sounds, non tender, soft Extremities: non-tender GRETA MATIAS Dec 18, 2016 07:22
[2016-12-18 07:55] VITALS: BP 120/59
[2016-12-18] MEDS: Vancomycin 750 MG in D5W 275 ML IVPB SCH (08:00)
[2016-12-18] MEDS: Docusate 100mg cap ORAL SCH ×2 (08:47→18:00)
[2016-12-18] MEDS: Dakin's 0.25% (Half Strength) 16oz TOPIC SCH (10:09)
[2016-12-18] MEDS: Pantoprazole Inj IVP SCH (10:09)
[2016-12-18] MEDS: Heparin 5000 units/ml inj SUBQ SCH ×2 (10:11→21:12)
[2016-12-18] MEDS: Morphine Sulfate 2mg/ml Inj IVP PRN ×2 (10:12→18:11)
--- NOTE | 2016-12-18 11:06 | Infectious Diseases Prog Note ---
Assessment/Plan Assessment/Plan A: Sepsis Sacral osteomyelitis UTI DM PVD PAF P; continue Vancomycin & change Zosyn to Rocephin PICC line placement Subjective ROS Limited/Unobtainable: Yes Allergies: Coded Allergies: NO KNOWN ALLERGIES (Unverified Allergy, Unknown, 09/05/15) Objective Vital Signs Last 24 Hour Vital Signs Date Time Temp Pulse Resp B/P Pulse Ox O2 Delivery O2 Flow Rate FiO2 12/18/16 07:55 97.7 71 16 120/59 100 Nasal Cannula 12/18/16 04:00 98.1 73 20 117/64 98 Nasal Cannula 2.0 12/18/16 00:00 98.1 72 20 95/54 97 Nasal Cannula 2.0 12/17/16 20:00 97.7 76 18 103/63 99 Room Air 12/17/16 19:22 78 18 Nasal Cannula 2.0 28 12/17/16 19:21 Nasal Cannula 2.0 28 12/17/16 19:21 98 Nasal Cannula 2.0 28 12/17/16 16:13 97.2 80 19 117/69 99 Nasal Cannula 2.0 12/17/16 12:00 97.5 69 20 141/75 93 Nasal Cannula Height (Feet): 5 Height (Inches): 3.00 Weight (Pounds): 140 General Appearance: no acute distress HEENT: mucous membranes moist Respiratory/Chest: lungs clear Cardiovascular: normal rate Abdomen: soft, non tender Extremities: no edema Skin: ulcers Neurologic/Psychiatric: aphasia Laboratory Tests Test 12/17/16 23:50 12/18/16 04:35 Vancomycin Level Trough 22.7 ug/mL (5.0-12.0) H White Blood Count 16.3 K/UL (4.8-10.8) H Red Blood Count 3.21 M/UL (4.20-5.40) L Hemoglobin 8.9 G/DL (12.0-16.0) L Hematocrit 26.9 % (37.0-47.0) L Mean Corpuscular Volume 84 FL (80-99) Mean Corpuscular Hemoglobin 27.7 PG (27.0-31.0) Mean Corpuscular Hemoglobin Concent 33.1 G/DL (32.0-36.0) Red Cell Distribution Width 18.7 % (11.6-14.8) H Platelet Count 175 K/UL (150-450) Mean Platelet Volume 8.4 FL (6.5-10.1) Neutrophils (%) (Auto) % (45.0-75.0) Lymphocytes (%) (Auto) % (20.0-45.0) Monocytes (%) (Auto) % (1.0-10.0) Eosinophils (%) (Auto) % (0.0-3.0) Basophils (%) (Auto) % (0.0-2.0) Prothrombin Time 13.2 SEC (9.30-11.50) H Prothromb Time International Ratio 1.3 (0.9-1.1) H Activated Partial Thromboplast Time 43 SEC (23-33) H Sodium Level 135 mEQ/L (135-145) Potassium Level 4.1 mEQ/L (3.4-4.9) Chloride Level 100 mEQ/L (98-107) Carbon Dioxide Level 18 mEQ/L (20-30) L Anion Gap 17 (5-15) H Blood Urea Nitrogen 24 mg/dL (7-23) H Creatinine 0.9 mg/dL (0.5-0.9) Estimat Glomerular Filtration Rate mL/min (>60) Glucose Level 71 mg/dL (74-106) L Uric Acid 6.1 mg/dL (3.0-7.5) Calcium Level 9.3 mg/dL (8.6-10.2) Phosphorus Level 2.7 mg/dL (2.5-4.8) Magnesium Level 1.6 mg/dL (1.7-2.5) L Total Bilirubin 0.7 mg/dL (0.0-1.2) Aspartate Amino Transf (AST/SGOT) 17 U/L (5-40) Alanine Aminotransferase (ALT/SGPT) 12 U/L (3-33) Alkaline Phosphatase 71 U/L (35-104) C-Reactive Protein, Quantitative 10.4 mg/dL (< 0.5) H Pro-B-Type Natriuretic Peptide 8003 pg/mL (0-450) H Total Protein 4.6 g/dL (6.6-8.7) L Albumin 1.9 g/dL (3.5-5.2) L Globulin 2.7 g/dL Albumin/Globulin Ratio 0.7 (1.0-2.7) L Current Medications Medications (Trade) Dose Ordered Sig/David Route PRN Reason Start Time Stop Time Status Last Admin Dose Admin Acetaminophen (Tylenol) 650 mg Q4H PRN ORAL fever 12/15/16 09:45 01/14/17 09:44 Albuterol/ Ipratropium (DuoNeb 0.5-3(2.5)mg/3ml) 3 ml Q4H PRN HHN Shortness of Breath 12/15/16 09:45 12/20/16 09:44 Calcitonin [place] (Miacalcin) 1 sprays DAILY NASAL 12/15/16 11:00 01/14/17 10:59 12/18/16 10:08 Dextrose (Dextrose 50%) STAT PRN IV Hypoglycemia 12/15/16 11:00 01/14/17 10:59 12/18/16 06:12 Dextrose/ Electrolytes (D5W w/KCl 20mEq) 1,000 ml @ 75 mls/hr [id number] IV 12/17/16 13:00 01/16/17 12:59 12/17/16 13:37 Docusate Sodium (Colace) 100 mg TWICE A DAY ORAL 12/15/16 11:00 01/14/17 10:59 Heparin Sodium (Porcine) (Heparin 5000 units/ml) 5,000 units EVERY 12 HOURS SUBQ 12/15/16 11:00 01/14/17 10:59 12/18/16 10:11 Insulin Aspart (NovoLOG) BEFORE MEALS AND HS SUBQ 12/15/16 11:30 01/14/17 11:29 Morphine Sulfate (Morphine Sulfate) 2 mg Q4H PRN IVP Moderate Pain (Pain Scale 4-6) 12/15/16 09:45 12/22/16 09:44 12/18/16 10:12 Nitroglycerin (Ntg) 0.4 mg Q5M PRN SL Prn Chest Pain 12/15/16 09:45 01/14/17 09:44 Ondansetron HCl (Zofran) 4 mg Q6H PRN IVP Nausea & Vomiting 12/15/16 11:45 01/14/17 11:44 Pantoprazole (Protonix) 40 mg DAILY IVP 12/15/16 11:00 01/14/17 10:59 12/18/16 10:09 Piperacillin Sod/ Tazobactam Sod/ Dextrose (Zosyn/D5W) 110 ml @ 27.5 mls/hr EVERY 8 HOURS IVPB 12/15/16 14:00 12/20/16 13:59 12/18/16 05:27 Polyethylene Glycol (Miralax) 17 gm DAILYPRN PRN ORAL Constipation 12/15/16 17:45 01/14/17 17:44 Sodium Hypochlorite (Dakin's Half Strength) 1 applic DAILY TOPIC 12/15/16 11:00 01/14/17 10:59 12/18/16 10:09 Temazepam (Restoril) 15 mg HSPRN PRN ORAL Insomnia 12/15/16 17:45 12/22/16 17:44 Vancomycin HCl 1 ea 1 ea DAILY PRN MISC PER RX PROTOCOL 12/16/16 09:00 01/15/17 08:59 ARACELY SMITH Dec 18, 2016 11:06
[2016-12-18] MEDS ORDERED: cefTRIAXone 1 GM in D5W 55 ML IVPB SCH (11:15)
[2016-12-18] MEDS ORDERED: Lidocaine 1% Plain 30 ml INJ ONE (12:00)
[2016-12-18] MEDS ORDERED: Heparin 2000 units/Ns 1000ml INJ ONE (12:00)
[2016-12-18] MEDS ORDERED: Sodium Bicarbonate 8.4% 50ml Inj IV ONE (12:00)
--- NOTE | 2016-12-18 12:17 | Pulmonology Progress Note ---
Assessment/Plan Assessment/Plan ASSESSMENT sepsis acute encephalopathy 2 to sepsis, possibly underlying on advanced dementia renal failure UTI Alzheimer dementia sacral decub, POA s/p debridement of sacral decub 12/14 possible OM sacral wound, s/p bone biopsy dysphagia e/lyte imbalance ( hypo K, hyper Na, hyper Ca) severe protein calorie malnutrition ( prealbumin -3) HTN CAD AFib chronic Hx of DVT RLE anemia, iron deficiency s/p Biotronik pacemaker diastolic dysfunction multiple decubiti ( POA): R heel stage 4, Left lateral malleolus stage 4, sacral stage 4, R lateral knee stage 4 PLAN OF CARE [facility] floor IVF CT head negative abx, urine cx + E coli, repeated negative CXR negative, wound cx + E coli, GNB, SCON, blood cx + SCON ID follows bone biopsy + E coli plastic surgery follows, wound care as per plastic surgery recommendation nephro follows, monitor renal palmers, lytes, replacement as per nephro, Ca trending down GI follows failed swallow eval initially PEG was planned , but daughter refused per GI- NGT with tube feeding had EGD and colon 10/2015 bowel regimen PPI BS management with SS of insulin, [id number] cardio follows rate controlled ; off a/coagulation due to severe bleeding BP stable without any anti HTN meds, BB on hold as per cardio DVT, GI prophylaxis case discussed and evaluated by supervising physician Subjective Allergies: Coded Allergies: NO KNOWN ALLERGIES (Unverified Allergy, Unknown, 09/05/15) Subjective leukocytosis trending down, still significant, afebrile no signs of respiratory distress on O2 via NC, pulse oximetry stable Objective Last 24 Hour Vital Signs Date Time Temp Pulse Resp B/P Pulse Ox O2 Delivery O2 Flow Rate FiO2 12/18/16 07:55 97.7 71 16 120/59 100 Nasal Cannula 12/18/16 04:00 98.1 73 20 117/64 98 Nasal Cannula 2.0 12/18/16 00:00 98.1 72 20 95/54 97 Nasal Cannula 2.0 12/17/16 20:00 97.7 76 18 103/63 99 Room Air 12/17/16 19:22 78 18 Nasal Cannula 2.0 28 12/17/16 19:21 Nasal Cannula 2.0 28 12/17/16 19:21 98 Nasal Cannula 2.0 28 12/17/16 16:13 97.2 80 19 117/69 99 Nasal Cannula 2.0 Intake and Output 12/17/16 12/18/16 19:00 07:00 Intake Total 970.0 ml 791.5 ml Output Total 850 ml 1375 ml Balance 120.0 ml -583.5 ml Intake IV Total 970.0 ml 791.5 ml Output Urine Total 850 ml 1375 ml Objective General Appearance: no acute distress, other - frail, elderly bedriden AA female, poorly responsive HEENT: normocephalic, atraumatic, anicteric, other - O2 via NC, NGT in , intact Respiratory/Chest: chest wall non-tender, no respiratory distress, no accessory muscle use, decreased breath sounds Cardiovascular: normal peripheral pulses, normal rate, regular rhythm, no JVD Abdomen: normal bowel sounds, soft, non tender, non distended Genitourinary: normal external genitalia Extremities: other - trace edema BLE, BLE ulcers with dressigns C/D/I Skin: other - multipel decub: sacral st 4, R heel stage4, Left lateral malleolus stage 4, R lateral knee stage 4 Laboratory Tests 12/17/16 23:50: Vancomycin Level Trough 22.7H 12/18/16 04:35: White Blood Count 16.3H, Red Blood Count 3.21L, Hemoglobin 8.9L, Hematocrit 26.9L, Mean Corpuscular Volume 84, Mean Corpuscular Hemoglobin 27.7, Mean Corpuscular Hemoglobin Concent 33.1, Red Cell Distribution Width 18.7H, Platelet Count 175, Mean Platelet Volume 8.4, Neutrophils (%) (Auto) , Lymphocytes (%) (Auto) , Monocytes (%) (Auto) , Eosinophils (%) (Auto) , Basophils (%) (Auto) , Prothrombin Time 13.2H, Prothromb Time International Ratio 1.3H, Activated Partial Thromboplast Time 43H, Sodium Level 135, Potassium Level 4.1, Chloride Level 100, Carbon Dioxide Level 18L, Anion Gap 17H , Blood Urea Nitrogen 24H, Creatinine 0.9, Estimat Glomerular Filtration Rate , Glucose Level 71L, Uric Acid 6.1, Calcium Level 9.3, Phosphorus Level 2.7, Magnesium Level 1.6L, Total Bilirubin 0.7, Aspartate Amino Transf (AST/SGOT) 17 , Alanine Aminotransferase (ALT/SGPT) 12, Alkaline Phosphatase 71, C-Reactive Protein, Quantitative 10.4H, Pro-B-Type Natriuretic Peptide 8003H, Total Protein 4.6L, Albumin 1.9L, Globulin 2.7, Albumin/Globulin Ratio 0.7L Current Medications Medications (Trade) Dose Ordered Sig/David Route PRN Reason Start Time Stop Time Status Last Admin Dose Admin Acetaminophen (Tylenol) 650 mg Q4H PRN ORAL fever 12/15/16 09:45 01/14/17 09:44 Albuterol/ Ipratropium (DuoNeb 0.5-3(2.5)mg/3ml) 3 ml Q4H PRN HHN Shortness of Breath 12/15/16 09:45 12/20/16 09:44 Calcitonin [place] (Miacalcin) 1 sprays DAILY NASAL 12/15/16 11:00 01/14/17 10:59 12/18/16 10:08 Ceftriaxone Sodium/Dextrose (Rocephin/D5W) 110 ml @ 220 mls/hr Q24H IVPB 12/18/16 13:00 12/25/16 12:59 Dextrose (Dextrose 50%) STAT PRN IV Hypoglycemia 12/15/16 11:00 01/14/17 10:59 12/18/16 06:12 Dextrose/ Electrolytes 1,000 ml @ 75 mls/hr [id number] IV 12/17/16 13:00 01/16/17 12:59 12/17/16 13:37 Docusate Sodium (Colace) 100 mg TWICE A DAY ORAL 12/15/16 11:00 01/14/17 10:59 Heparin Sodium (Porcine) (Heparin 5000 units/ml) 5,000 units EVERY 12 HOURS SUBQ 12/15/16 11:00 01/14/17 10:59 12/18/16 10:11 Insulin Aspart (NovoLOG) BEFORE MEALS AND HS SUBQ 12/15/16 11:30 01/14/17 11:29 Morphine Sulfate (Morphine Sulfate) 2 mg Q4H PRN IVP Moderate Pain (Pain Scale 4-6) 12/15/16 09:45 12/22/16 09:44 12/18/16 10:12 Nitroglycerin (Ntg) 0.4 mg Q5M PRN SL Prn Chest Pain 12/15/16 09:45 01/14/17 09:44 Ondansetron HCl (Zofran) 4 mg Q6H PRN IVP Nausea & Vomiting 12/15/16 11:45 01/14/17 11:44 Pantoprazole (Protonix) 40 mg DAILY IVP 12/15/16 11:00 01/14/17 10:59 12/18/16 10:09 Polyethylene Glycol (Miralax) 17 gm DAILYPRN PRN ORAL Constipation 12/15/16 17:45 01/14/17 17:44 Sodium Hypochlorite (Dakin's Half Strength) 1 applic DAILY TOPIC 12/15/16 11:00 01/14/17 10:59 12/18/16 10:09 Temazepam (Restoril) 15 mg HSPRN PRN ORAL Insomnia 12/15/16 17:45 12/22/16 17:44 Vancomycin HCl 1 ea 1 ea DAILY PRN MISC PER RX PROTOCOL 12/16/16 09:00 01/15/17 08:59 Demario BoydShanda elizabeth NP Dec 18, 2016 12:17
[2016-12-18 12:37] VITALS: BP 127/65
--- NOTE | 2016-12-18 12:57 | General Progress Note ---
Assessment/Plan Status: stable - from renal stand Status Narrative Due PEG in am Assessment/Plan status: Acute renal failure- mainly prerenal improved HyperCalcemia- being treated Leukocytosis / sepsis, on antibiotics other conditions mentioned in PH: -History of anemia. -Hypertension. -Diabetes type 2. -History of coronary artery disease. -Renal failure. -Paroxysmal atrial fibrillation. -History of right lower extremity deep venous thrombosis. -Arthritis. -Alzheimer's dementia. -Pacemaker in situ. Plan: need NGT or GT feeding- NGT feeding ordered for now- seems family is now agreeable to PEG, hence NGT on hold Hydrate- change IV to D5 NS Phos and K supplement as needed- [place]- Monitor renal parameters- per orders- discussed with RN Subjective ROS Limited/Unobtainable: No Constitutional: Reports: malaise, weakness Allergies: Coded Allergies: NO KNOWN ALLERGIES (Unverified Allergy, Unknown, 09/05/15) Objective Last 24 Hour Vital Signs Date Time Temp Pulse Resp B/P Pulse Ox O2 Delivery O2 Flow Rate FiO2 12/18/16 12:37 97.5 88 15 127/65 93 Room Air 12/18/16 07:55 97.7 71 16 120/59 100 Nasal Cannula 12/18/16 04:00 98.1 73 20 117/64 98 Nasal Cannula 2.0 12/18/16 00:00 98.1 72 20 95/54 97 Nasal Cannula 2.0 12/17/16 20:00 97.7 76 18 103/63 99 Room Air 12/17/16 19:22 78 18 Nasal Cannula 2.0 28 12/17/16 19:21 Nasal Cannula 2.0 28 12/17/16 19:21 98 Nasal Cannula 2.0 28 12/17/16 16:13 97.2 80 19 117/69 99 Nasal Cannula 2.0 Intake and Output 12/17/16 12/18/16 19:00 07:00 Intake Total 970.0 ml 791.5 ml Output Total 850 ml 1375 ml Balance 120.0 ml -583.5 ml Intake IV Total 970.0 ml 791.5 ml Output Urine Total 850 ml 1375 ml Laboratory Tests 12/17/16 23:50: Vancomycin Level Trough 22.7H 12/18/16 04:35: White Blood Count 16.3H, Red Blood Count 3.21L, Hemoglobin 8.9L, Hematocrit 26.9L, Mean Corpuscular Volume 84, Mean Corpuscular Hemoglobin 27.7, Mean Corpuscular Hemoglobin Concent 33.1, Red Cell Distribution Width 18.7H, Platelet Count 175, Mean Platelet Volume 8.4, Neutrophils (%) (Auto) , Lymphocytes (%) (Auto) , Monocytes (%) (Auto) , Eosinophils (%) (Auto) , Basophils (%) (Auto) , Prothrombin Time 13.2H, Prothromb Time International Ratio 1.3H, Activated Partial Thromboplast Time 43H, Sodium Level 135, Potassium Level 4.1, Chloride Level 100, Carbon Dioxide Level 18L, Anion Gap 17H , Blood Urea Nitrogen 24H, Creatinine 0.9, Estimat Glomerular Filtration Rate , Glucose Level 71L, Uric Acid 6.1, Calcium Level 9.3, Phosphorus Level 2.7, Magnesium Level 1.6L, Total Bilirubin 0.7, Aspartate Amino Transf (AST/SGOT) 17 , Alanine Aminotransferase (ALT/SGPT) 12, Alkaline Phosphatase 71, C-Reactive Protein, Quantitative 10.4H, Pro-B-Type Natriuretic Peptide 8003H, Total Protein 4.6L, Albumin 1.9L, Globulin 2.7, Albumin/Globulin Ratio 0.7L Height (Feet): 5 Height (Inches): 3.00 Weight (Pounds): 140 General Appearance: no apparent distress, lethargic, confused Cardiovascular: normal rate Respiratory/Chest: decreased breath sounds Abdomen: soft Objective other PE not changed EARNEST CADET Dec 18, 2016 12:57
[2016-12-18] MEDS ORDERED: cefTRIAXone 2gm/D5W 110ml IVPB SCH ×2 (13:00)
[2016-12-18] MEDS: D5NS 1,000 ML IV SCH (13:25)
--- NOTE | 2016-12-18 13:38 | Internal Med Progress Note ---
Subjective Date of Service: Dec 18, 2016 Physician Name Bradley Davis Attending Physician Titi Cruz MD Current Medications Medications (Trade) Dose Ordered Sig/David Route PRN Reason Start Time Stop Time Status Last Admin Dose Admin Acetaminophen (Tylenol) 650 mg Q4H PRN ORAL fever 12/15/16 09:45 01/14/17 09:44 Albuterol/ Ipratropium (DuoNeb 0.5-3(2.5)mg/3ml) 3 ml Q4H PRN HHN Shortness of Breath 12/15/16 09:45 12/20/16 09:44 Calcitonin [place] (Miacalcin) 1 sprays DAILY NASAL 12/15/16 11:00 01/14/17 10:59 12/18/16 10:08 Ceftriaxone Sodium/Dextrose (Rocephin/D5W) 110 ml @ 220 mls/hr Q24H IVPB 12/18/16 13:00 12/25/16 12:59 12/18/16 13:30 Dextrose (Dextrose 50%) STAT PRN IV Hypoglycemia 12/15/16 11:00 01/14/17 10:59 12/18/16 06:12 Dextrose/Sodium Chloride (D5ns) 1,000 ml @ 50 mls/hr Q20H IV 12/18/16 13:00 01/17/17 12:59 12/18/16 13:25 Docusate Sodium (Colace) 100 mg TWICE A DAY ORAL 12/15/16 11:00 01/14/17 10:59 Heparin Sodium (Porcine) (Heparin 5000 units/ml) 5,000 units EVERY 12 HOURS SUBQ 12/15/16 11:00 01/14/17 10:59 12/18/16 10:11 Heparin Sodium/ Sodium Chloride (Heparin 2000 units/Ns 1000ml premix) 2,000 unit ONCE ONCE INJ 12/19/16 12:00 12/19/16 12:01 Insulin Aspart (NovoLOG) BEFORE MEALS AND HS SUBQ 12/15/16 11:30 01/14/17 11:29 Lidocaine HCl 30 ml 30 ml ONCE ONCE INJ 12/19/16 12:00 12/19/16 12:01 Morphine Sulfate (Morphine Sulfate) 2 mg Q4H PRN IVP Moderate Pain (Pain Scale 4-6) 12/15/16 09:45 12/22/16 09:44 12/18/16 10:12 Nitroglycerin (Ntg) 0.4 mg Q5M PRN SL Prn Chest Pain 12/15/16 09:45 01/14/17 09:44 Ondansetron HCl (Zofran) 4 mg Q6H PRN IVP Nausea & Vomiting 12/15/16 11:45 01/14/17 11:44 Pantoprazole (Protonix) 40 mg DAILY IVP 12/15/16 11:00 01/14/17 10:59 12/18/16 10:09 Polyethylene Glycol (Miralax) 17 gm DAILYPRN PRN ORAL Constipation 12/15/16 17:45 01/14/17 17:44 Sodium Hypochlorite (Dakin's Half Strength) 1 applic DAILY TOPIC 12/15/16 11:00 01/14/17 10:59 12/18/16 10:09 Sodium Bicarbonate (Sodium Bicarbonate) 50 ml ONCE ONCE IV 12/19/16 12:00 12/19/16 12:01 Temazepam (Restoril) 15 mg HSPRN PRN ORAL Insomnia 12/15/16 17:45 12/22/16 17:44 Vancomycin HCl 1 ea 1 ea DAILY PRN MISC PER RX PROTOCOL 12/16/16 09:00 01/15/17 08:59 Allergies: Coded Allergies: NO KNOWN ALLERGIES (Unverified Allergy, Unknown, 09/05/15) ROS Limited/Unobtainable: Yes Subjective 86 YO F admitted with sepsis. S/P debridement sacral decubitus ulcer on . Cover for Int Med-Dr Cruz. PEG placement cancelled per daughter request. Objective Last Vital Signs Date Time Temp Pulse Resp B/P Pulse Ox O2 Delivery O2 Flow Rate FiO2 12/18/16 12:37 97.5 88 15 127/65 93 Room Air 12/18/16 04:00 2.0 12/17/16 19:22 28 Laboratory Tests Test 12/17/16 23:50 12/18/16 04:35 Vancomycin Level Trough 22.7 ug/mL (5.0-12.0) H White Blood Count 16.3 K/UL (4.8-10.8) H Red Blood Count 3.21 M/UL (4.20-5.40) L Hemoglobin 8.9 G/DL (12.0-16.0) L Hematocrit 26.9 % (37.0-47.0) L Mean Corpuscular Volume 84 FL (80-99) Mean Corpuscular Hemoglobin 27.7 PG (27.0-31.0) Mean Corpuscular Hemoglobin Concent 33.1 G/DL (32.0-36.0) Red Cell Distribution Width 18.7 % (11.6-14.8) H Platelet Count 175 K/UL (150-450) Mean Platelet Volume 8.4 FL (6.5-10.1) Neutrophils (%) (Auto) % (45.0-75.0) Lymphocytes (%) (Auto) % (20.0-45.0) Monocytes (%) (Auto) % (1.0-10.0) Eosinophils (%) (Auto) % (0.0-3.0) Basophils (%) (Auto) % (0.0-2.0) Prothrombin Time 13.2 SEC (9.30-11.50) H Prothromb Time International Ratio 1.3 (0.9-1.1) H Activated Partial Thromboplast Time 43 SEC (23-33) H Sodium Level 135 mEQ/L (135-145) Potassium Level 4.1 mEQ/L (3.4-4.9) Chloride Level 100 mEQ/L (98-107) Carbon Dioxide Level 18 mEQ/L (20-30) L Anion Gap 17 (5-15) H Blood Urea Nitrogen 24 mg/dL (7-23) H Creatinine 0.9 mg/dL (0.5-0.9) Estimat Glomerular Filtration Rate mL/min (>60) Glucose Level 71 mg/dL (74-106) L Uric Acid 6.1 mg/dL (3.0-7.5) Calcium Level 9.3 mg/dL (8.6-10.2) Phosphorus Level 2.7 mg/dL (2.5-4.8) Magnesium Level 1.6 mg/dL (1.7-2.5) L Total Bilirubin 0.7 mg/dL (0.0-1.2) Aspartate Amino Transf (AST/SGOT) 17 U/L (5-40) Alanine Aminotransferase (ALT/SGPT) 12 U/L (3-33) Alkaline Phosphatase 71 U/L (35-104) C-Reactive Protein, Quantitative 10.4 mg/dL (< 0.5) H Pro-B-Type Natriuretic Peptide 8003 pg/mL (0-450) H Total Protein 4.6 g/dL (6.6-8.7) L Albumin 1.9 g/dL (3.5-5.2) L Globulin 2.7 g/dL Albumin/Globulin Ratio 0.7 (1.0-2.7) L Intake and Output 12/17/16 12/18/16 19:00 07:00 Intake Total 970.0 ml 791.5 ml Output Total 850 ml 1375 ml Balance 120.0 ml -583.5 ml Intake IV Total 970.0 ml 791.5 ml Output Urine Total 850 ml 1375 ml Objective General Appearance: mild distress, lethargic, thin EENT: PERRL/EOMI, normal ENT inspection Neck: non-tender, normal alignment Cardiovascular: normal peripheral pulses, no gallop/murmur, no JVD, irregularly irregular Respiratory/Chest: chest wall non-tender, crackles/rales, rhonchi - bilaterally , expiratory wheezing Abdomen: normal bowel sounds, non tender, soft, no organomegaly, no mass Extremities: normal range of motion, non-tender Skin: normal pigmentation, warm/dry Assessment/Plan Problem List: (1) Dysphagia Assessment & Plan: Daughter refused PEG-See GI note-Dr Miles. Start NG feeds. (2) Hypokalemia Assessment & Plan: See nephrology note. (3) Hypernatremia (4) UTI (urinary tract infection) Assessment & Plan: E. Coli. Cont ceftriaxone and vanco per ID. (5) Severe malnutrition (6) Renal failure Assessment & Plan: Followed by nephrology - Dr Leone- see note. (7) Sepsis (8) Sacral decubitus ulcer, stage IV Assessment & Plan: S/P Debridement 12/14/16. Cont ceftriaxone and vanco per ID (9) Hypertension (10) Coronary artery disease (11) Atrial fibrillation (12) History of DVT (deep vein thrombosis) (13) Anemia (14) Diabetes mellitus Assessment & Plan: Hyperglycemia. Add novolog sliding scale. Status: not improved BRADLEY DAVIS Dec 18, 2016 13:38
[2016-12-18 16:00] VITALS: BP 114/107
[2016-12-18] MEDS ORDERED: NS 275ml ONE (17:17)
[2016-12-18] MEDS ORDERED: D5NS 1000ml IV ONE (17:17)
[2016-12-18] MEDS ORDERED: Tubing IV Secondary IV ONE (17:17)
[2016-12-18 19:00] VITALS: BP 137/75
[2016-12-19] VITALS (12 sets, daily range): BP systolic 119–149; BP diastolic 61–88
[2016-12-19] MEDS: NovoLOG Insulin Flexpen SUBQ SCH ×4 (06:02→21:00)
[2016-12-19 07:20] LABS: MEAN CORPUSCULAR HEMOGLOBIN 27.3 PG (27.0-31.0); MEAN CORPUSCULAR HGB CONC 32.9 G/DL (32.0-36.0); MEAN CORPUSCULAR VOLUME 83 FL (80-99); MEAN PLATELET VOLUME 8.5 FL (6.5-10.1); PLATELET COUNT 174 K/UL (150-450); RED BLOOD COUNT 3.15 M/UL (4.20-5.40); RED CELL DISTRIBUTION WIDTH 18.8 % (11.6-14.8); WHITE BLOOD COUNT 13.6 K/UL (4.8-10.8)
[2016-12-19 07:26] LABS: INR 1.3 (0.9-1.1); PROTHROMBIN TIME 13.8 SEC (9.30-11.50)
--- NOTE | 2016-12-19 07:32 | Anethesia Preoperative Eval ---
Anesthesia Pre-op PMH/ROS General Date of Evaluation: Dec 19, 2016 Anesthesiologist: Tyshawn ASA Score: ASA 4 Mallampati Score Class I : Soft palate, uvula, fauces, pillars visible Class II: Soft palate, uvula, fauces visible Class III: Soft palate, base of uvula visible Class IV: Only hard plate visible Mallampati Classification: Class II Surgeon: Christophe Diagnosis: Dysphagia Surgical Procedure: EGD and PEG Anesthesia History: none Family History: no anesthesia problems Allergies: Coded Allergies: NO KNOWN ALLERGIES (Unverified Allergy, Unknown, 09/05/15) Medications: see eMAR Past Medical History Cardiovascular: Reports: CAD, HTN, arrhythmia - s/p Pacemaker, Denies: MO, other, valve dz Pulmonary: Denies: COPD, KATTY, asthma, other Gastrointestinal/Genitourinary: Reports: GERD, other - dysphagia, Denies: CRI, ESRD Neurologic/Psychiatric: Reports: dementia, Denies: CVA, TIA, depression/anxiety, other Endocrine: Reports: hypothyroidism, Denies: DM, other, steroids HEENT: Denies: [place] (L), [place] (R), cataract (L), cataract (R), glaucoma, other Hematology/Immune: Reports: DVT, anemia, Denies: bleeding disorder, other Musculoskeletal/Integumentary: Denies: DDD, DJD, OA, RA, edema, other PSxH Narrative: pacemaker, I&D sacral decub Anesthesia Pre-op Phys. Exam Physician Exam Last Vital Signs Date Time Temp Pulse Resp B/P Pulse Ox O2 Delivery O2 Flow Rate FiO2 12/19/16 04:00 98.2 69 18 128/68 100 Nasal Cannula 2.0 12/18/16 19:00 28 Constitutional: NAD Cardiovascular: RRR Respiratory: CTA Airway Exam Mallampati Score: Class II Anesthesia Pre-op A/P Labs Hematology Test 12/19/16 05:45 White Blood Count 13.6 K/UL (4.8-10.8) H Red Blood Count 3.15 M/UL (4.20-5.40) L Hemoglobin 8.6 G/DL (12.0-16.0) L Hematocrit 26.2 % (37.0-47.0) L Mean Corpuscular Volume 83 FL (80-99) Mean Corpuscular Hemoglobin 27.3 PG (27.0-31.0) Mean Corpuscular Hemoglobin Concent 32.9 G/DL (32.0-36.0) Red Cell Distribution Width 18.8 % (11.6-14.8) H Platelet Count 174 K/UL (150-450) Mean Platelet Volume 8.5 FL (6.5-10.1) Neutrophils (%) (Auto) % (45.0-75.0) Lymphocytes (%) (Auto) % (20.0-45.0) Monocytes (%) (Auto) % (1.0-10.0) Eosinophils (%) (Auto) % (0.0-3.0) Basophils (%) (Auto) % (0.0-2.0) Neutrophils % (Manual) Pending Lymphocytes % (Manual) Pending Platelet Estimate Pending Platelet Morphology Pending Coagulation Test 12/19/16 05:45 Prothrombin Time Pending Prothromb Time International Ratio Pending Activated Partial Thromboplast Time Pending Chemistry Test 12/19/16 05:45 Sodium Level Pending Potassium Level Pending Chloride Level Pending Carbon Dioxide Level Pending Blood Urea Nitrogen Pending Creatinine Pending Estimat Glomerular Filtration Rate Pending Glucose Level Pending Uric Acid Pending Calcium Level Pending Phosphorus Level Pending Magnesium Level Pending Total Bilirubin Pending Aspartate Amino Transf (AST/SGOT) Pending Alanine Aminotransferase (ALT/SGPT) Pending Alkaline Phosphatase Pending Pro-B-Type Natriuretic Peptide Pending Total Protein Pending Albumin Pending Globulin Pending Studies Pre-op Studies: EKG - afib Risk Assessment & Plan Assessment: ASA IV Plan: MAC Status Change Before Surgery: No Pre-Antibiotics Drug: Ancef 1g Given Within 1 Hr of Incision: DAYAMI Gibbs M.D. Dec 19, 2016 07:32
[2016-12-19 07:35] LABS: ALANINE AMINOTRANSFERASE 14 U/L (3-33); ALBUMIN/GLOBULIN RATIO 0.5 (1.0-2.7); ANION GAP 16 (5-15); ASPARTATE AMINO TRANSFERASE 17 U/L (5-40); CARBON DIOXIDE 21 mEQ/L (20-30); CHLORIDE 103 mEQ/L (98-107); CREATININE 0.9 mg/dL (0.5-0.9); HEMOLYSIS 29; MAGNESIUM 1.6 mg/dL (1.7-2.5); PHOSPHORUS 2.8 mg/dL (2.5-4.8); POTASSIUM 3.3 mEQ/L (3.4-4.9); SODIUM 140 mEQ/L (135-145); TOTAL PROTEIN 5.4 g/dL (6.6-8.7); URIC ACID 6.1 mg/dL (3.0-7.5)
[2016-12-19] MEDS ORDERED: LR 1000ml 1,000 ML IVLG SCH (07:38)
--- NOTE | 2016-12-19 07:39 | Immediate Post-Op Evaluation ---
Immediate Post-Op Evalulation Immediate Post-Op Evalulation Procedure: EGd and PEG Date of Evaluation: Dec 19, 2016 Time of Evaluation: 08:46 IV Fluids: 150 Blood Products: 0 Estimated Blood Loss: 0 Urinary Output: 0 Blood Pressure Systolic: 133 Blood Pressure Diastolic: 86 Pulse Rate: 64 Respiratory Rate: 16 O2 Sat by Pulse Oximetry: 97 Temperature (Fahrenheit): 98.1 Pain Score (1-10): 0 Nausea: No Vomiting: No Complications 0 Patient Status: awake, reacts, patent, none Hydration Status: adequate Drug: cefriaxon 1g Given Within 1 Hr of Incision: Yes DAYAMI CHAN M.D. Dec 19, 2016 07:39
--- NOTE | 2016-12-19 07:41 | 48 Hour Post Anesthesia Eval ---
Post Anesthesia Evaluation Procedure: EGd and PEG Date of Evaluation: Dec 19, 2016 Blood Pressure Systolic: 127 0: 84 Pulse Rate: 63 Respiratory Rate: 17 O2 Sat by Pulse Oximetry: 98 Airway: patent Nausea: No Vomiting: No Pain Intensity: 0 Hydration Status: adequate Cardiopulmonary Status: at baseline Mental Status/LOC: patient returned to baseline Post-Anesthesia Complications: 0 Follow-up care needed: N/A - further care as per primary team DAYAMI CHAN M.D. Dec 19, 2016 07:40
[2016-12-19] MEDS ORDERED: DiphenhydrAMINE 50mg/ml Inj IVP PRN (07:45)
[2016-12-19] MEDS ORDERED: Labetalol 5mg/ml 20ml vial IV PRN (07:45)
[2016-12-19] MEDS ORDERED: Propofol 10mg/ml 20ml IV ONE (08:00)
[2016-12-19] MEDS ORDERED: Lidocaine 1% MPF 10mg/ml 5ml ONE (08:00)
[2016-12-19] MEDS ORDERED: NS 550ML IV ONE (08:00)
--- NOTE | 2016-12-19 08:06 | Pre-Procedure Note/Attestation ---
Pre-Procedure Note/Attestation Complete Prior to Procedure Planned Procedure: not applicable Procedure Narrative: egd/peg Indications for Procedure Pre-Operative Diagnosis: dysphagia Attestation I attest that I discussed the nature of the procedure; its benefits; risks and complications; and alternatives (and the risks and benefits of such alternatives ), prior to the procedure, with the patient (or the patient's legal inside sales representative). I attest that, if there was a reasonable possibility of needing a blood transfusion, the patient (or the patient's legal inside sales representative) was given the [facility] standardized written summary, pursuant to the Donato Teresa Blood Safety Act ([place] Health and Safety Code # 1645, as amended). I attest that I re-evaluated the patient just prior to the surgery and that there has been no change in the patient's H&P, except as documented below: GRETA MATIAS Dec 19, 2016 08:06
[2016-12-19] MEDS: Heparin 5000 units/ml inj SUBQ SCH ×2 (08:14→21:07)
--- NOTE | 2016-12-19 08:29 | Endoscopy Procedure Note ---
Endoscopy Procedure Note Indication for Procedure: dysphagia Procedures Performed: EGD, PEG Operative Findings/Diagnosis: gastric polyp Specimen: yes Pt Tolerated Procedure Well: Yes Estimated Blood Loss: none Anesthesiologist: yeison Anesthesia: MAC Implant(s) used?: No 50 yrs or older w/o bx or poly: Not Applicable 10yrs. F/U not recommended: Not Applicable GRETA MATIAS Dec 19, 2016 08:29
[2016-12-19 08:33] LABS: ANISOCYTOSIS 2+; BAND NEUTROPHILS % (MANUAL) 0 % (0-8); BASOPHILS % (MANUAL) 0 % (0-2); EOSINOPHILS % (MANUAL) 2 % (0-3); HYPOCHROMASIA 2+; LYMPHOCYTES % (MANUAL) 6 % (20-45); NEUTROPHILS % (MANUAL) 91 % (45-75); PLATELET ESTIMATE ADEQUATE; PLATELET MORPHOLOGY NORMAL; TOTAL CELLS COUNTED 100
[2016-12-19] MEDS: Docusate 100mg cap ORAL SCH ×2 (09:00→17:26)
--- NOTE | 2016-12-19 09:37 | Infectious Diseases Prog Note ---
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 History of right lower extremity DVT. Anemia PLAN: continue the patient on IV vancomycin. and Zosyn ---> Rocephin d# 7 change to Invanz d# Monitor CBC. Monitor BMP. Subjective Constitutional: Denies: anorexia, chills, drenching sweats, fatigue, fever, no symptoms, other Allergies: Coded Allergies: NO KNOWN ALLERGIES (Unverified Allergy, Unknown, 09/05/15) Objective Vital Signs Last 24 Hour Vital Signs Date Time Temp Pulse Resp B/P Pulse Ox O2 Delivery O2 Flow Rate FiO2 12/19/16 09:17 98.1 66 16 149/80 98 Nasal Cannula 2.0 12/19/16 09:09 59 16 134/75 96 Nasal Cannula 12/19/16 09:00 60 16 141/67 97 Simple Mask 8.0 12/19/16 08:51 60 18 137/73 97 Simple Mask 8.0 12/19/16 08:48 63 17 98 12/19/16 08:47 64 16 97 12/19/16 08:46 65 20 127/84 97 Simple Mask 8.0 12/19/16 08:41 98.1 86 20 133/88 97 Simple Mask 8.0 12/19/16 04:00 98.2 69 18 128/68 100 Nasal Cannula 2.0 12/19/16 00:00 98.2 67 18 125/66 100 Nasal Cannula 2.0 12/18/16 19:00 Nasal Cannula 2.0 28 12/18/16 19:00 75 18 Nasal Cannula 2.0 28 12/18/16 19:00 97 Nasal Cannula 2.0 28 12/18/16 19:00 98.0 75 18 137/75 97 Room Air 12/18/16 16:00 97.2 74 17 114/107 96 Room Air 12/18/16 12:37 97.5 88 15 127/65 93 Room Air Height (Feet): 5 Height (Inches): 3.00 Weight (Pounds): 140 HEENT: anicteric Respiratory/Chest: normal breath sounds Cardiovascular: regular rhythm Abdomen: non distended Laboratory Tests Test 12/18/16 20:35 12/19/16 05:45 Vancomycin Level Trough 21.5 ug/mL (5.0-12.0) H White Blood Count 13.6 K/UL (4.8-10.8) H Red Blood Count 3.15 M/UL (4.20-5.40) L Hemoglobin 8.6 G/DL (12.0-16.0) L Hematocrit 26.2 % (37.0-47.0) L Mean Corpuscular Volume 83 FL (80-99) Mean Corpuscular Hemoglobin 27.3 PG (27.0-31.0) Mean Corpuscular Hemoglobin Concent 32.9 G/DL (32.0-36.0) Red Cell Distribution Width 18.8 % (11.6-14.8) H Platelet Count 174 K/UL (150-450) Mean Platelet Volume 8.5 FL (6.5-10.1) Neutrophils (%) (Auto) % (45.0-75.0) Lymphocytes (%) (Auto) % (20.0-45.0) Monocytes (%) (Auto) % (1.0-10.0) Eosinophils (%) (Auto) % (0.0-3.0) Basophils (%) (Auto) % (0.0-2.0) Differential Total Cells Counted 100 Neutrophils % (Manual) 91 % (45-75) H Lymphocytes % (Manual) 6 % (20-45) L Monocytes % (Manual) 1 % (1-10) Eosinophils % (Manual) 2 % (0-3) Basophils % (Manual) 0 % (0-2) Band Neutrophils 0 % (0-8) Platelet Estimate Adequate Platelet Morphology Normal Hypochromasia 2+ Anisocytosis 2+ Prothrombin Time 13.8 SEC (9.30-11.50) H Prothromb Time International Ratio 1.3 (0.9-1.1) H Activated Partial Thromboplast Time 49 SEC (23-33) H Sodium Level 140 mEQ/L (135-145) Potassium Level 3.3 mEQ/L (3.4-4.9) L Chloride Level 103 mEQ/L (98-107) Carbon Dioxide Level 21 mEQ/L (20-30) Anion Gap 16 (5-15) H Blood Urea Nitrogen 22 mg/dL (7-23) Creatinine 0.9 mg/dL (0.5-0.9) Estimat Glomerular Filtration Rate mL/min (>60) Glucose Level 100 mg/dL (74-106) Uric Acid 6.1 mg/dL (3.0-7.5) Calcium Level 10.0 mg/dL (8.6-10.2) Phosphorus Level 2.8 mg/dL (2.5-4.8) Magnesium Level 1.6 mg/dL (1.7-2.5) L Total Bilirubin 0.5 mg/dL (0.0-1.2) Aspartate Amino Transf (AST/SGOT) 17 U/L (5-40) Alanine Aminotransferase (ALT/SGPT) 14 U/L (3-33) Alkaline Phosphatase 94 U/L (35-104) Pro-B-Type Natriuretic Peptide 85810 pg/mL (0-450) H Total Protein 5.4 g/dL (6.6-8.7) L Albumin 1.8 g/dL (3.5-5.2) L Globulin 3.6 g/dL Albumin/Globulin Ratio 0.5 (1.0-2.7) L Current Medications Medications (Trade) Dose Ordered Sig/David Route PRN Reason Start Time Stop Time Status Last Admin Dose Admin Acetaminophen (Tylenol) 650 mg Q4H PRN ORAL fever 12/15/16 09:45 01/14/17 09:44 Acetaminophen (Tylenol) 650 mg Q4H PRN ORAL Mild Pain (Pain Scale 1-3) 12/19/16 07:45 12/19/16 14:00 Albuterol/ Ipratropium (DuoNeb 0.5-3(2.5)mg/3ml) 3 ml Q4H PRN HHN Shortness of Breath 12/15/16 09:45 12/20/16 09:44 Calcitonin [place] (Miacalcin) 1 sprays DAILY NASAL 12/15/16 11:00 01/14/17 10:59 12/18/16 10:08 Ceftriaxone Sodium/Dextrose (Rocephin/D5W) 110 ml @ 220 mls/hr Q24H IVPB 12/18/16 13:00 12/25/16 12:59 12/18/16 13:30 Dextrose (Dextrose 50%) STAT PRN IV Hypoglycemia 12/15/16 11:00 01/14/17 10:59 12/18/16 21:19 Dextrose/Sodium Chloride (D5ns) 1,000 ml @ 50 mls/hr Q20H IV 12/18/16 13:00 01/17/17 12:59 12/18/16 13:25 Diphenhydramine HCl 25 mg 25 mg Q15M PRN IVP Itching 12/19/16 07:45 12/19/16 14:00 Docusate Sodium (Colace) 100 mg TWICE A DAY ORAL 12/15/16 11:00 01/14/17 10:59 Heparin Sodium (Porcine) (Heparin 5000 units/ml) 5,000 units EVERY 12 HOURS SUBQ 12/15/16 11:00 01/14/17 10:59 12/18/16 21:12 Heparin Sodium/ Sodium Chloride (Heparin 2000 units/Ns 1000ml premix) 2,000 unit ONCE ONCE INJ 12/19/16 12:00 12/19/16 12:01 Hydralazine HCl (Apresoline) 5 mg Q30M PRN IV SBP>160 /DBP>90 12/19/16 07:45 12/19/16 14:00 Insulin Aspart (NovoLOG) BEFORE MEALS AND HS SUBQ 12/15/16 11:30 01/14/17 11:29 Labetalol HCl (Normodyne) 5 mg Q10M PRN IV SBP>160 / DBP>90 12/19/16 07:45 12/19/16 14:00 Lactated Ringer's (Lactated Ringer's 1000ml) 1,000 ml @ 10 mls/hr Q24H IVLG 12/19/16 07:38 12/19/16 09:37 Lidocaine HCl 30 ml 30 ml ONCE ONCE INJ 12/19/16 12:00 12/19/16 12:01 Morphine Sulfate (Morphine Sulfate) 2 mg Q4H PRN IVP Moderate Pain (Pain Scale 4-6) 12/15/16 09:45 12/22/16 09:44 12/18/16 18:11 Nitroglycerin (Ntg) 0.4 mg Q5M PRN SL Prn Chest Pain 12/15/16 09:45 01/14/17 09:44 Ondansetron HCl (Zofran) 4 mg Q1H PRN IVP Nausea & Vomiting 12/19/16 07:45 12/19/16 14:00 Ondansetron HCl (Zofran) 4 mg Q6H PRN IVP Nausea & Vomiting 12/15/16 11:45 01/14/17 11:44 Pantoprazole (Protonix) 40 mg DAILY IVP 12/15/16 11:00 01/14/17 10:59 12/18/16 10:09 Polyethylene Glycol (Miralax) 17 gm DAILYPRN PRN ORAL Constipation 12/15/16 17:45 01/14/17 17:44 Sodium Hypochlorite (Dakin's Half Strength) 1 applic DAILY TOPIC 12/15/16 11:00 01/14/17 10:59 12/18/16 10:09 Sodium Bicarbonate (Sodium Bicarbonate) 50 ml ONCE ONCE IV 12/19/16 12:00 12/19/16 12:01 Temazepam (Restoril) 15 mg HSPRN PRN ORAL Insomnia 12/15/16 17:45 12/22/16 17:44 Vancomycin HCl 1 ea 1 ea DAILY PRN MISC PER RX PROTOCOL 12/16/16 09:00 01/15/17 08:59 RADHA BAILON M.D. Dec 19, 2016 09:37
--- NOTE | 2016-12-19 11:47 | Internal Med Progress Note ---
Subjective Date of Service: Dec 19, 2016 Physician Name Bradley Davis Attending Physician Titi Cruz MD Current Medications Medications (Trade) Dose Ordered Sig/David Route PRN Reason Start Time Stop Time Status Last Admin Dose Admin Acetaminophen (Tylenol) 650 mg Q4H PRN ORAL fever 12/15/16 09:45 01/14/17 09:44 Acetaminophen (Tylenol) 650 mg Q4H PRN ORAL Mild Pain (Pain Scale 1-3) 12/19/16 07:45 12/19/16 14:00 Albuterol/ Ipratropium (DuoNeb 0.5-3(2.5)mg/3ml) 3 ml Q4H PRN HHN Shortness of Breath 12/15/16 09:45 12/20/16 09:44 Calcitonin [place] (Miacalcin) 1 sprays DAILY NASAL 12/15/16 11:00 01/14/17 10:59 12/18/16 10:08 Dextrose (Dextrose 50%) STAT PRN IV Hypoglycemia 12/15/16 11:00 01/14/17 10:59 12/18/16 21:19 Dextrose/Sodium Chloride (D5ns) 1,000 ml @ 50 mls/hr Q20H IV 12/18/16 13:00 01/17/17 12:59 12/18/16 13:25 Diphenhydramine HCl 25 mg 25 mg Q15M PRN IVP Itching 12/19/16 07:45 12/19/16 14:00 Docusate Sodium (Colace) 100 mg TWICE A DAY ORAL 12/15/16 11:00 01/14/17 10:59 Ertapenem/Sodium Chloride (INVanz/Sodium Chloride) 55 ml @ 110 mls/hr Q24H IVPB 12/19/16 12:00 12/24/16 11:59 Heparin Sodium (Porcine) (Heparin 5000 units/ml) 5,000 units EVERY 12 HOURS SUBQ 12/15/16 11:00 01/14/17 10:59 12/18/16 21:12 Heparin Sodium/ Sodium Chloride (Heparin 2000 units/Ns 1000ml premix) 2,000 unit ONCE ONCE INJ 12/19/16 12:00 12/19/16 12:01 Hydralazine HCl (Apresoline) 5 mg Q30M PRN IV SBP>160 /DBP>90 12/19/16 07:45 12/19/16 14:00 Insulin Aspart (NovoLOG) BEFORE MEALS AND HS SUBQ 12/15/16 11:30 01/14/17 11:29 Labetalol HCl (Normodyne) 5 mg Q10M PRN IV SBP>160 / DBP>90 12/19/16 07:45 12/19/16 14:00 Lidocaine HCl 30 ml 30 ml ONCE ONCE INJ 12/19/16 12:00 12/19/16 12:01 Morphine Sulfate (Morphine Sulfate) 2 mg Q4H PRN IVP Moderate Pain (Pain Scale 4-6) 12/15/16 09:45 12/22/16 09:44 12/18/16 18:11 Nitroglycerin (Ntg) 0.4 mg Q5M PRN SL Prn Chest Pain 12/15/16 09:45 01/14/17 09:44 Ondansetron HCl (Zofran) 4 mg Q1H PRN IVP Nausea & Vomiting 12/19/16 07:45 12/19/16 14:00 Ondansetron HCl (Zofran) 4 mg Q6H PRN IVP Nausea & Vomiting 12/15/16 11:45 01/14/17 11:44 Pantoprazole (Protonix) 40 mg DAILY IVP 12/15/16 11:00 01/14/17 10:59 12/18/16 10:09 Polyethylene Glycol (Miralax) 17 gm DAILYPRN PRN ORAL Constipation 12/15/16 17:45 01/14/17 17:44 Sodium Hypochlorite (Dakin's Half Strength) 1 applic DAILY TOPIC 12/15/16 11:00 01/14/17 10:59 12/18/16 10:09 Sodium Bicarbonate (Sodium Bicarbonate) 50 ml ONCE ONCE IV 12/19/16 12:00 12/19/16 12:01 Temazepam (Restoril) 15 mg HSPRN PRN ORAL Insomnia 12/15/16 17:45 12/22/16 17:44 Allergies: Coded Allergies: NO KNOWN ALLERGIES (Unverified Allergy, Unknown, 09/05/15) ROS Limited/Unobtainable: Yes Subjective 86 YO F admitted with sepsis. S/P debridement sacral decubitus ulcer on . Cover for Int Med-Dr Cruz. Scheduled for PEG placement today Objective Last Vital Signs Date Time Temp Pulse Resp B/P Pulse Ox O2 Delivery O2 Flow Rate FiO2 12/19/16 10:04 97.9 70 19 143/79 93 Room Air 12/19/16 09:17 2.0 12/18/16 19:00 28 Laboratory Tests Test 12/18/16 20:35 12/19/16 05:45 Vancomycin Level Trough 21.5 ug/mL (5.0-12.0) H White Blood Count 13.6 K/UL (4.8-10.8) H Red Blood Count 3.15 M/UL (4.20-5.40) L Hemoglobin 8.6 G/DL (12.0-16.0) L Hematocrit 26.2 % (37.0-47.0) L Mean Corpuscular Volume 83 FL (80-99) Mean Corpuscular Hemoglobin 27.3 PG (27.0-31.0) Mean Corpuscular Hemoglobin Concent 32.9 G/DL (32.0-36.0) Red Cell Distribution Width 18.8 % (11.6-14.8) H Platelet Count 174 K/UL (150-450) Mean Platelet Volume 8.5 FL (6.5-10.1) Neutrophils (%) (Auto) % (45.0-75.0) Lymphocytes (%) (Auto) % (20.0-45.0) Monocytes (%) (Auto) % (1.0-10.0) Eosinophils (%) (Auto) % (0.0-3.0) Basophils (%) (Auto) % (0.0-2.0) Differential Total Cells Counted 100 Neutrophils % (Manual) 91 % (45-75) H Lymphocytes % (Manual) 6 % (20-45) L Monocytes % (Manual) 1 % (1-10) Eosinophils % (Manual) 2 % (0-3) Basophils % (Manual) 0 % (0-2) Band Neutrophils 0 % (0-8) Platelet Estimate Adequate Platelet Morphology Normal Hypochromasia 2+ Anisocytosis 2+ Prothrombin Time 13.8 SEC (9.30-11.50) H Prothromb Time International Ratio 1.3 (0.9-1.1) H Activated Partial Thromboplast Time 49 SEC (23-33) H Sodium Level 140 mEQ/L (135-145) Potassium Level 3.3 mEQ/L (3.4-4.9) L Chloride Level 103 mEQ/L (98-107) Carbon Dioxide Level 21 mEQ/L (20-30) Anion Gap 16 (5-15) H Blood Urea Nitrogen 22 mg/dL (7-23) Creatinine 0.9 mg/dL (0.5-0.9) Estimat Glomerular Filtration Rate mL/min (>60) Glucose Level 100 mg/dL (74-106) Uric Acid 6.1 mg/dL (3.0-7.5) Calcium Level 10.0 mg/dL (8.6-10.2) Phosphorus Level 2.8 mg/dL (2.5-4.8) Magnesium Level 1.6 mg/dL (1.7-2.5) L Total Bilirubin 0.5 mg/dL (0.0-1.2) Aspartate Amino Transf (AST/SGOT) 17 U/L (5-40) Alanine Aminotransferase (ALT/SGPT) 14 U/L (3-33) Alkaline Phosphatase 94 U/L (35-104) Pro-B-Type Natriuretic Peptide 83177 pg/mL (0-450) H Total Protein 5.4 g/dL (6.6-8.7) L Albumin 1.8 g/dL (3.5-5.2) L Globulin 3.6 g/dL Albumin/Globulin Ratio 0.5 (1.0-2.7) L Intake and Output 12/18/16 12/19/16 19:00 07:00 Intake Total 817.5 ml 575 ml Output Total 350 ml 750 ml Balance 467.5 ml -175 ml Intake IV Total 817.5 ml 575 ml Output Urine Total 350 ml 750 ml # Bowel Movements 1 Objective General Appearance: mild distress, lethargic, thin EENT: PERRL/EOMI, normal ENT inspection Neck: non-tender, normal alignment Cardiovascular: normal peripheral pulses, no gallop/murmur, no JVD, irregularly irregular Respiratory/Chest: chest wall non-tender, crackles/rales, rhonchi - bilaterally , expiratory wheezing Abdomen: normal bowel sounds, non tender, soft, no organomegaly, no mass Extremities: normal range of motion, non-tender Skin: normal pigmentation, warm/dry Assessment/Plan Problem List: (1) Dysphagia Assessment & Plan: Scheduled for PEG placement today-See GI note-Dr Miles. (2) Hypokalemia Assessment & Plan: See nephrology note. (3) Hypernatremia (4) UTI (urinary tract infection) Assessment & Plan: E. Coli. Continue ertapenem per ID. (5) Severe malnutrition (6) Renal failure Assessment & Plan: Followed by nephrology - Dr Leone- see note. (7) Sepsis (8) Sacral decubitus ulcer, stage IV Assessment & Plan: S/P Debridement 12/14/16. Continue ertapenem per ID (9) Hypertension (10) Coronary artery disease (11) Atrial fibrillation Assessment & Plan: See cardiology note. (12) History of DVT (deep vein thrombosis) (13) Anemia (14) Diabetes mellitus Assessment & Plan: Hyperglycemia. Add novolog sliding scale. Status: not improved BRADLEY DAVIS Dec 19, 2016 11:47
[2016-12-19] MEDS ORDERED: Heparin 2000 units/Ns 1000ml INJ ONE (12:00)
[2016-12-19] MEDS ORDERED: Lidocaine 1% Plain 30 ml INJ ONE (12:00)
[2016-12-19] MEDS ORDERED: Sodium Bicarbonate 8.4% 50ml Inj IV ONE (12:00)
--- NOTE | 2016-12-19 12:37 | Diagnostic Imaging Report ---
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 The right upper extremity was prepped with alcohol. All elements of maximal sterile barrier technique were followed including usage of a cap, mask, sterile gown, sterile gloves, hand hygiene and a large sterile sheet. Sonographic evaluation of the upper extremity was performed demonstrating a patent and compressible basilic vein. Access was obtained under real-time ultrasound guidance and digital image was saved and archived. An .018 wire was introduced. Needle exchanged for a 5 [place] peel-away sheath. Measurements were obtained. A 5 [place] dual-lumen Power PICC line catheter was cut to 35 cm and introduced over the wire. Peel-away sheath and wire were removed.Catheter was secured to the skin using 2-0 Prolene suture. Both ports aspirate and flush easily. Fluoroscopic Images show distal tip in the superior vena cava. Total fluoroscopic time 0.4 minutes Impression: Successful placement of an upper extremity PICC line catheter
[2016-12-19] MEDS: Pantoprazole Inj IVP SCH (14:22)
[2016-12-19] MEDS: Ertapenem 1 GM in NS 55 ML IVPB SCH (14:23)
[2016-12-19] MEDS: Dakin's 0.25% (Half Strength) 16oz TOPIC SCH (14:26)
[2016-12-19] MEDS: Morphine Sulfate 2mg/ml Inj IVP PRN ×2 (14:29→19:13)
[2016-12-19] MEDS: D5NS 1,000 ML IV SCH (15:28)
[2016-12-19] MEDS ORDERED: Pamidronate Disodium Inj 60 MG in Sodium Chloride 550 ML IVPB ONE (16:00)
--- NOTE | 2016-12-19 16:14 | Cardiac Electrophysiology PN ---
Assessment/Plan Assessment/Plan 1. Status post Biotronik single chamber pacemake with NL function.. 2. Chronic atrial fibrillation. Start metoprolol 25 mg b.i.d. for better rate control. Keep off anticoagulation for severe bleeding. 3. Hypertension. Start metoprolol 25 mg b.i.d. 4. Sacral decubitus. Status post excision and debridement of sacral ulcer and deep open bone biopsy of the sacrum by Dr. Steinberg. 5. History of anemia. 6. Chronic kidney disease. The current creatinine is normal, but BUN is 37. 7. Diastolic dysfunction. BNP of 8000. 8. Dysphagia.S/P PEG today DW RN and son at bedside. Subjective Subjective Comfortable in NAD. RN and son at bedside. Had PEG placement today. Objective Last 24 Hour Vital Signs Date Time Temp Pulse Resp B/P Pulse Ox O2 Delivery O2 Flow Rate FiO2 12/19/16 12:59 97.2 62 18 146/61 92 Nasal Cannula 3.0 12/19/16 10:04 97.9 70 19 143/79 93 Room Air 12/19/16 09:17 98.1 66 16 149/80 98 Nasal Cannula 2.0 12/19/16 09:09 59 16 134/75 96 Nasal Cannula 12/19/16 09:00 60 16 141/67 97 Simple Mask 8.0 12/19/16 08:51 60 18 137/73 97 Simple Mask 8.0 12/19/16 08:48 63 17 98 12/19/16 08:47 64 16 97 12/19/16 08:46 65 20 127/84 97 Simple Mask 8.0 12/19/16 08:41 98.1 86 20 133/88 97 Simple Mask 8.0 12/19/16 06:40 71 18 Nasal Cannula 2.0 28 12/19/16 06:40 100 Nasal Cannula 2.0 28 12/19/16 06:40 Nasal Cannula 2.0 28 12/19/16 04:00 98.2 69 18 128/68 100 Nasal Cannula 2.0 12/19/16 00:00 98.2 67 18 125/66 100 Nasal Cannula 2.0 12/18/16 19:00 Nasal Cannula 2.0 28 12/18/16 19:00 75 18 Nasal Cannula 2.0 28 12/18/16 19:00 97 Nasal Cannula 2.0 28 12/18/16 19:00 98.0 75 18 137/75 97 Room Air Intake and Output 12/18/16 12/19/16 19:00 07:00 Intake Total 817.5 ml 575 ml Output Total 350 ml 750 ml Balance 467.5 ml -175 ml Intake IV Total 817.5 ml 575 ml Output Urine Total 350 ml 750 ml # Bowel Movements 1 Laboratory Tests Test 12/18/16 20:35 12/19/16 05:45 Vancomycin Level Trough 21.5 ug/mL (5.0-12.0) H White Blood Count 13.6 K/UL (4.8-10.8) H Red Blood Count 3.15 M/UL (4.20-5.40) L Hemoglobin 8.6 G/DL (12.0-16.0) L Hematocrit 26.2 % (37.0-47.0) L Mean Corpuscular Volume 83 FL (80-99) Mean Corpuscular Hemoglobin 27.3 PG (27.0-31.0) Mean Corpuscular Hemoglobin Concent 32.9 G/DL (32.0-36.0) Red Cell Distribution Width 18.8 % (11.6-14.8) H Platelet Count 174 K/UL (150-450) Mean Platelet Volume 8.5 FL (6.5-10.1) Neutrophils (%) (Auto) % (45.0-75.0) Lymphocytes (%) (Auto) % (20.0-45.0) Monocytes (%) (Auto) % (1.0-10.0) Eosinophils (%) (Auto) % (0.0-3.0) Basophils (%) (Auto) % (0.0-2.0) Differential Total Cells Counted 100 Neutrophils % (Manual) 91 % (45-75) H Lymphocytes % (Manual) 6 % (20-45) L Monocytes % (Manual) 1 % (1-10) Eosinophils % (Manual) 2 % (0-3) Basophils % (Manual) 0 % (0-2) Band Neutrophils 0 % (0-8) Platelet Estimate Adequate Platelet Morphology Normal Hypochromasia 2+ Anisocytosis 2+ Prothrombin Time 13.8 SEC (9.30-11.50) H Prothromb Time International Ratio 1.3 (0.9-1.1) H Activated Partial Thromboplast Time 49 SEC (23-33) H Sodium Level 140 mEQ/L (135-145) Potassium Level 3.3 mEQ/L (3.4-4.9) L Chloride Level 103 mEQ/L (98-107) Carbon Dioxide Level 21 mEQ/L (20-30) Anion Gap 16 (5-15) H Blood Urea Nitrogen 22 mg/dL (7-23) Creatinine 0.9 mg/dL (0.5-0.9) Estimat Glomerular Filtration Rate mL/min (>60) Glucose Level 100 mg/dL (74-106) Uric Acid 6.1 mg/dL (3.0-7.5) Calcium Level 10.0 mg/dL (8.6-10.2) Phosphorus Level 2.8 mg/dL (2.5-4.8) Magnesium Level 1.6 mg/dL (1.7-2.5) L Total Bilirubin 0.5 mg/dL (0.0-1.2) Aspartate Amino Transf (AST/SGOT) 17 U/L (5-40) Alanine Aminotransferase (ALT/SGPT) 14 U/L (3-33) Alkaline Phosphatase 94 U/L (35-104) Pro-B-Type Natriuretic Peptide 23361 pg/mL (0-450) H Total Protein 5.4 g/dL (6.6-8.7) L Albumin 1.8 g/dL (3.5-5.2) L Globulin 3.6 g/dL Albumin/Globulin Ratio 0.5 (1.0-2.7) L Objective HEAD AND NECK: Shows no JVD or carotid bruits. LUNGS: Clear. CARDIOVASCULAR: Shows regular S1 and S2 with no gallop or murmur. The pacemaker is at left subclavian. ABDOMEN: Soft.PEG in place EXTREMITIES: Large sacral decubitus status post surgery.No edema STAR ROA Dec 19, 2016 16:14
[2016-12-19] MEDS ORDERED: KCl 10% 40mEq/30ml liquid GT ONE (16:30)
--- NOTE | 2016-12-19 17:52 | Pulmonology Progress Note ---
Assessment/Plan Problems: (1) Sepsis (2) Acute encephalopathy (3) Renal failure (4) UTI (urinary tract infection) (5) Decubitus ulcer of sacral area (6) Anemia (7) Alzheimer's dementia Assessment/Plan s/p debridement NG tube insertion was not successful continue antibiotics check cultures check electrolytes iv fluids check Ca daily wbc decreasing dvt prophylaxis Subjective ROS Limited/Unobtainable: Yes Constitutional: Reports: anorexia, fatigue Neurologic: Reports: confusion Allergies: Coded Allergies: NO KNOWN ALLERGIES (Unverified Allergy, Unknown, 09/05/15) Objective Last 24 Hour Vital Signs Date Time Temp Pulse Resp B/P Pulse Ox O2 Delivery O2 Flow Rate FiO2 12/19/16 16:00 97.7 70 15 119/69 95 Room Air 12/19/16 14:59 97.2 12/19/16 12:59 97.2 62 18 146/61 92 Nasal Cannula 3.0 12/19/16 10:04 97.9 70 19 143/79 93 Room Air 12/19/16 09:17 98.1 66 16 149/80 98 Nasal Cannula 2.0 12/19/16 09:09 59 16 134/75 96 Nasal Cannula 12/19/16 09:00 60 16 141/67 97 Simple Mask 8.0 12/19/16 08:51 60 18 137/73 97 Simple Mask 8.0 12/19/16 08:48 63 17 98 12/19/16 08:47 64 16 97 12/19/16 08:46 65 20 127/84 97 Simple Mask 8.0 12/19/16 08:41 98.1 86 20 133/88 97 Simple Mask 8.0 12/19/16 06:40 71 18 Nasal Cannula 2.0 28 12/19/16 06:40 100 Nasal Cannula 2.0 28 12/19/16 06:40 Nasal Cannula 2.0 28 12/19/16 04:00 98.2 69 18 128/68 100 Nasal Cannula 2.0 12/19/16 00:00 98.2 67 18 125/66 100 Nasal Cannula 2.0 12/18/16 19:00 Nasal Cannula 2.0 28 12/18/16 19:00 75 18 Nasal Cannula 2.0 28 12/18/16 19:00 97 Nasal Cannula 2.0 28 12/18/16 19:00 98.0 75 18 137/75 97 Room Air Intake and Output 12/18/16 12/19/16 19:00 07:00 Intake Total 817.5 ml 575 ml Output Total 350 ml 750 ml Balance 467.5 ml -175 ml Intake IV Total 817.5 ml 575 ml Output Urine Total 350 ml 750 ml # Bowel Movements 1 General Appearance: no acute distress HEENT: normocephalic, atraumatic, PERRL Respiratory/Chest: chest wall non-tender, decreased breath sounds, accessory muscle use Breasts: no masses Cardiovascular: normal peripheral pulses, normal rate, regular rhythm Abdomen: normal bowel sounds, soft, non tender, no organomegaly Genitourinary: normal external genitalia Extremities: no cyanosis Skin: rash, lesions Neurologic/Psychiatric: accounts 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 II-XII grossly normal, responsive, disoriented Laboratory Tests 12/18/16 20:35: Vancomycin Level Trough 21.5H 12/19/16 05:45: White Blood Count 13.6H, Red Blood Count 3.15L, Hemoglobin 8.6L, Hematocrit 26.2L, Mean Corpuscular Volume 83, Mean Corpuscular Hemoglobin 27.3, Mean Corpuscular Hemoglobin Concent 32.9, Red Cell Distribution Width 18.8H, Platelet Count 174, Mean Platelet Volume 8.5, Neutrophils (%) (Auto) , Lymphocytes (%) (Auto) , Monocytes (%) (Auto) , Eosinophils (%) (Auto) , Basophils (%) (Auto) , Differential Total Cells Counted 100, Neutrophils % ( Manual) 91H, Lymphocytes % (Manual) 6L, Monocytes % (Manual) 1, Eosinophils % ( Manual) 2, Basophils % (Manual) 0, Band Neutrophils 0, Platelet Estimate Adequate, Platelet Morphology Normal, Hypochromasia 2+, Anisocytosis 2+, Prothrombin Time 13.8H, Prothromb Time International Ratio 1.3H, Activated Partial Thromboplast Time 49H, Sodium Level 140, Potassium Level 3.3L, Chloride Level 103, Carbon Dioxide Level 21, Anion Gap 16H, Blood Urea Nitrogen 22, Creatinine 0.9, Estimat Glomerular Filtration Rate , Glucose Level 100, Uric Acid 6.1, Calcium Level 10.0, Phosphorus Level 2.8, Magnesium Level 1.6L, Total Bilirubin 0.5, Aspartate Amino Transf (AST/SGOT) 17, Alanine Aminotransferase ( ALT/SGPT) 14, Alkaline Phosphatase 94, Pro-B-Type Natriuretic Peptide 08821H, Total Protein 5.4L, Albumin 1.8L, Globulin 3.6, Albumin/Globulin Ratio 0.5L Current Medications Medications (Trade) Dose Ordered Sig/David Route PRN Reason Start Time Stop Time Status Last Admin Dose Admin Acetaminophen (Tylenol) 650 mg Q4H PRN ORAL fever 12/15/16 09:45 01/14/17 09:44 Albuterol/ Ipratropium (DuoNeb 0.5-3(2.5)mg/3ml) 3 ml Q4H PRN HHN Shortness of Breath 12/15/16 09:45 12/20/16 09:44 Calcitonin [place] (Miacalcin) 1 sprays DAILY NASAL 12/15/16 11:00 01/14/17 10:59 12/19/16 14:30 Dextrose (Dextrose 50%) STAT PRN IV Hypoglycemia 12/15/16 11:00 01/14/17 10:59 12/18/16 21:19 Dextrose/Sodium Chloride 1,000 ml @ 50 mls/hr Q20H IV 12/18/16 13:00 01/17/17 12:59 12/19/16 15:28 Docusate Sodium (Colace) 100 mg TWICE A DAY ORAL 12/15/16 11:00 01/14/17 10:59 Ertapenem 1 gm/ Sodium Chloride 55 ml @ 110 mls/hr Q24H IVPB 12/19/16 12:00 12/24/16 11:59 12/19/16 14:23 Heparin Sodium (Porcine) (Heparin 5000 units/ml) 5,000 units EVERY 12 HOURS SUBQ 12/15/16 11:00 01/14/17 10:59 12/18/16 21:12 Insulin Aspart (NovoLOG) BEFORE MEALS AND HS SUBQ 12/15/16 11:30 01/14/17 11:29 Magnesium Sulfate (Magnesium Sulfate 1gm/100ml) 100 ml @ 100 mls/hr ONCE ONCE IVPB 12/19/16 17:00 12/19/16 17:59 12/19/16 16:50 Metoprolol Tartrate (Lopressor) 25 mg Q12HR PEG 12/19/16 21:00 01/18/17 20:59 Morphine Sulfate (Morphine Sulfate) 2 mg Q4H PRN IVP Moderate Pain (Pain Scale 4-6) 12/15/16 09:45 12/22/16 09:44 12/19/16 14:29 Nitroglycerin (Ntg) 0.4 mg Q5M PRN SL Prn Chest Pain 12/15/16 09:45 01/14/17 09:44 Ondansetron HCl (Zofran) 4 mg Q6H PRN IVP Nausea & Vomiting 12/15/16 11:45 01/14/17 11:44 Pamidronate Disodium 60 mg/ Sodium Chloride 550 ml @ 137.5 mls/ hr ONCE ONCE IVPB 12/19/16 16:00 12/19/16 19:59 12/19/16 16:33 Pantoprazole (Protonix) 40 mg DAILY IVP 12/15/16 11:00 01/14/17 10:59 12/19/16 14:22 Polyethylene Glycol (Miralax) 17 gm DAILYPRN PRN ORAL Constipation 12/15/16 17:45 01/14/17 17:44 Sodium Hypochlorite (Dakin's Half Strength) 1 applic DAILY TOPIC 12/15/16 11:00 01/14/17 10:59 12/19/16 14:26 Temazepam 15 mg 15 mg HSPRN PRN ORAL Insomnia 12/15/16 17:45 12/22/16 17:44 EVENS CASTELLON Dec 19, 2016 17:52
--- NOTE | 2016-12-19 19:39 | Procedure Note ---
DATE OF PROCEDURE: 12/19/2016 SURGEON: Ruben Miles M.D. PROCEDURE: Upper endoscopy with snare polypectomy biopsy and G-tube placement. ANESTHESIOLOGIST: Dr. Villagran. INSTRUMENT: Olympus adult flexible upper endoscope. INDICATION: Dysphagia. REASON FOR PROCEDURE: The procedure, risks, benefits, and possible consequences, including hemorrhage, aspiration, perforation and infection, and alternative treatments, were explained to the patient/legal guardian by Dr. Ruben Miles and the patient/legal guardian understood and accepted these risks. DESCRIPTION OF PROCEDURE: After informed consent was obtained and the patient was adequately sedated, Olympus upper endoscope was advanced from mouth into the second portion of duodenum and retroflexion was performed in the stomach. The patient has diffuse atrophic gastritis, severe. There were two polyps in the stomach at the area of junction between the body and antrum. These polyps were adenomatous-looking polyps. One of them measured roughly about 7 to 8 mm. Both of them were removed with the snare polypectomy technique. One of them was biopsied before removal. Then under endoscopic guidance and under sterile condition, a 20-Persian pull type of G-tube was successfully placed in the epigastric area. The distance from the tip of the tube into the skin was about 2.5 cm size. The patient tolerated the procedure without any complication. SUMMARY OF FINDINGS: 1. Severe atrophic gastritis. 2. Two gastric polyps removed with the snare polypectomy technique. 3. Status post successful percutaneous endoscopic gastrostomy placement. RECOMMENDATIONS: 1. Abdominal binder. 2. Elevate the head of the bed at all times. 3. G-tube flush. 4. G-tube care. 5. Start tube feeding later today. 6. The patient is currently on ceftriaxone. I want to thank Dr. Cruz for this kind referral. Ruben Miles M.D. DR: DOE JOB#: [id number] CC: Titi Cruz M.D.
[2016-12-19] MEDS: Metoprolol 25mg tab PEG SCH (21:00)
--- NOTE | 2016-12-19 22:59 | Pulmonology Progress Note ---
Assessment/Plan Problems: (1) Sepsis (2) Acute encephalopathy (3) Renal failure (4) UTI (urinary tract infection) (5) Decubitus ulcer of sacral area (6) Anemia (7) Alzheimer's dementia Assessment/Plan s/p debridement NG tube insertion was not successful continue antibiotics check cultures check electrolytes iv fluids check Ca daily wbc decreasing dvt prophylaxis Subjective ROS Limited/Unobtainable: Yes Constitutional: Reports: anorexia, fatigue Neurologic: Reports: confusion, weakness Skin: Reports: other, rash, ulcer Allergies: Coded Allergies: NO KNOWN ALLERGIES (Unverified Allergy, Unknown, 09/05/15) Objective Last 24 Hour Vital Signs Date Time Temp Pulse Resp B/P Pulse Ox O2 Delivery O2 Flow Rate FiO2 12/19/16 21:00 60 131/75 12/19/16 20:00 97.7 60 16 131/75 94 Room Air 12/19/16 16:00 97.7 70 15 119/69 95 Room Air 12/19/16 14:59 97.2 12/19/16 12:59 97.2 62 18 146/61 92 Nasal Cannula 3.0 12/19/16 10:04 97.9 70 19 143/79 93 Room Air 12/19/16 09:17 98.1 66 16 149/80 98 Nasal Cannula 2.0 12/19/16 09:09 59 16 134/75 96 Nasal Cannula 12/19/16 09:00 60 16 141/67 97 Simple Mask 8.0 12/19/16 08:51 60 18 137/73 97 Simple Mask 8.0 12/19/16 08:48 63 17 98 12/19/16 08:47 64 16 97 12/19/16 08:46 65 20 127/84 97 Simple Mask 8.0 12/19/16 08:41 98.1 86 20 133/88 97 Simple Mask 8.0 12/19/16 06:40 71 18 Nasal Cannula 2.0 28 12/19/16 06:40 100 Nasal Cannula 2.0 28 12/19/16 06:40 Nasal Cannula 2.0 28 12/19/16 04:00 98.2 69 18 128/68 100 Nasal Cannula 2.0 12/19/16 00:00 98.2 67 18 125/66 100 Nasal Cannula 2.0 Intake and Output 12/18/16 12/19/16 19:00 07:00 Intake Total 817.5 ml 575 ml Output Total 350 ml 750 ml Balance 467.5 ml -175 ml IV Total 817.5 ml 575 ml Output Urine Total 350 ml 750 ml # Bowel Movements 1 General Appearance: no acute distress HEENT: normocephalic, atraumatic, PERRL Respiratory/Chest: chest wall non-tender, decreased breath sounds, accessory muscle use, crackles/rales Breasts: no masses Cardiovascular: normal peripheral pulses, normal rate, regular rhythm Abdomen: normal bowel sounds, soft, non tender, no organomegaly Genitourinary: normal external genitalia Extremities: no cyanosis Skin: rash, lesions, ulcers Neurologic/Psychiatric: president [place] II-XII grossly normal, responsive, disoriented Laboratory Tests 12/19/16 05:45: White Blood Count 13.6H, Red Blood Count 3.15L, Hemoglobin 8.6L, Hematocrit 26.2L, Mean Corpuscular Volume 83, Mean Corpuscular Hemoglobin 27.3, Mean Corpuscular Hemoglobin Concent 32.9, Red Cell Distribution Width 18.8H, Platelet Count 174, Mean Platelet Volume 8.5, Neutrophils (%) (Auto) , Lymphocytes (%) (Auto) , Monocytes (%) (Auto) , Eosinophils (%) (Auto) , Basophils (%) (Auto) , Differential Total Cells Counted 100, Neutrophils % ( Manual) 91H, Lymphocytes % (Manual) 6L, Monocytes % (Manual) 1, Eosinophils % ( Manual) 2, Basophils % (Manual) 0, Band Neutrophils 0, Platelet Estimate Adequate, Platelet Morphology Normal, Hypochromasia 2+, Anisocytosis 2+, Prothrombin Time 13.8H, Prothromb Time International Ratio 1.3H, Activated Partial Thromboplast Time 49H, Sodium Level 140, Potassium Level 3.3L, Chloride Level 103, Carbon Dioxide Level 21, Anion Gap 16H, Blood Urea Nitrogen 22, Creatinine 0.9, Estimat Glomerular Filtration Rate , Glucose Level 100, Uric Acid 6.1, Calcium Level 10.0, Phosphorus Level 2.8, Magnesium Level 1.6L, Total Bilirubin 0.5, Aspartate Amino Transf (AST/SGOT) 17, Alanine Aminotransferase ( ALT/SGPT) 14, Alkaline Phosphatase 94, Pro-B-Type Natriuretic Peptide 50518D, Total Protein 5.4L, Albumin 1.8L, Globulin 3.6, Albumin/Globulin Ratio 0.5L Current Medications Medications (Trade) Dose Ordered Sig/David Route PRN Reason Start Time Stop Time Status Last Admin Dose Admin Acetaminophen (Tylenol) 650 mg Q4H PRN ORAL fever 12/15/16 09:45 01/14/17 09:44 Albuterol/ Ipratropium (DuoNeb 0.5-3(2.5)mg/3ml) 3 ml Q4H PRN HHN Shortness of Breath 12/15/16 09:45 12/20/16 09:44 Calcitonin [place] (Miacalcin) 1 sprays DAILY NASAL 12/15/16 11:00 01/14/17 10:59 12/19/16 14:30 Dextrose (Dextrose 50%) STAT PRN IV Hypoglycemia 12/15/16 11:00 01/14/17 10:59 12/18/16 21:19 Dextrose/Sodium Chloride 1,000 ml @ 50 mls/hr Q20H IV 12/18/16 13:00 01/17/17 12:59 12/19/16 15:28 Docusate Sodium (Colace) 100 mg TWICE A DAY ORAL 12/15/16 11:00 01/14/17 10:59 Ertapenem/Sodium Chloride (INVanz/Sodium Chloride) 55 ml @ 110 mls/hr Q24H IVPB 12/19/16 12:00 12/24/16 11:59 12/19/16 14:23 Heparin Sodium (Porcine) (Heparin 5000 units/ml) 5,000 units EVERY 12 HOURS SUBQ 12/15/16 11:00 01/14/17 10:59 12/19/16 21:07 Insulin Aspart (NovoLOG) BEFORE MEALS AND HS SUBQ 12/15/16 11:30 01/14/17 11:29 Metoprolol Tartrate (Lopressor) 25 mg Q12HR PEG 12/19/16 21:00 01/18/17 20:59 12/19/16 21:00 Morphine Sulfate (Morphine Sulfate) 2 mg Q4H PRN IVP Moderate Pain (Pain Scale 4-6) 12/15/16 09:45 12/22/16 09:44 12/19/16 19:13 Nitroglycerin (Ntg) 0.4 mg Q5M PRN SL Prn Chest Pain 12/15/16 09:45 01/14/17 09:44 Ondansetron HCl (Zofran) 4 mg Q6H PRN IVP Nausea & Vomiting 12/15/16 11:45 01/14/17 11:44 Pantoprazole (Protonix) 40 mg DAILY IVP 12/15/16 11:00 01/14/17 10:59 12/19/16 14:22 Polyethylene Glycol (Miralax) 17 gm DAILYPRN PRN ORAL Constipation 12/15/16 17:45 01/14/17 17:44 Sodium Hypochlorite (Dakin's Half Strength) 1 applic DAILY TOPIC 12/15/16 11:00 01/14/17 10:59 12/19/16 14:26 Temazepam 15 mg 15 mg HSPRN PRN ORAL Insomnia 12/15/16 17:45 12/22/16 17:44 EVENS CASTELLON Dec 19, 2016 22:59
[2016-12-20] VITALS: BP 129/70
[2016-12-20 04:00] VITALS: BP 126/86
[2016-12-20] MEDS: Morphine Sulfate 2mg/ml Inj IVP PRN (04:02)
[2016-12-20] MEDS: D5NS 1,000 ML IV SCH (05:00)
[2016-12-20] MEDS: NovoLOG Insulin Flexpen SUBQ SCH ×4 (05:54→21:05)
[2016-12-20 07:02] LABS: ANION GAP 15 (5-15); CALCIUM 9.7 mg/dL (8.6-10.2); CARBON DIOXIDE 21 mEQ/L (20-30); CHLORIDE 108 mEQ/L (98-107); CREATININE 0.8 mg/dL (0.5-0.9); HEMOLYSIS 0; POTASSIUM 3.5 mEQ/L (3.4-4.9); SODIUM 144 mEQ/L (135-145)
[2016-12-20 07:32] LABS: MEAN CORPUSCULAR HEMOGLOBIN 27.7 PG (27.0-31.0); MEAN CORPUSCULAR HGB CONC 33.4 G/DL (32.0-36.0); MEAN CORPUSCULAR VOLUME 83 FL (80-99); MEAN PLATELET VOLUME 8.2 FL (6.5-10.1); PLATELET COUNT 162 K/UL (150-450); RED BLOOD COUNT 2.69 M/UL (4.20-5.40); RED CELL DISTRIBUTION WIDTH 18.8 % (11.6-14.8); WHITE BLOOD COUNT 17.8 K/UL (4.8-10.8)
[2016-12-20 08:32] VITALS: BP 141/68
[2016-12-20 08:57] LABS: ANISOCYTOSIS 2+; BAND NEUTROPHILS % (MANUAL) 4 % (0-8); BASOPHILS % (MANUAL) 0 % (0-2); EOSINOPHILS % (MANUAL) 1 % (0-3); HYPOCHROMASIA 2+; LYMPHOCYTES % (MANUAL) 4 % (20-45); NEUTROPHILS % (MANUAL) 90 % (45-75); PLATELET ESTIMATE ADEQUATE; PLATELET MORPHOLOGY NORMAL; TOTAL CELLS COUNTED 100
[2016-12-20 08:58] LABS: TARGET CELLS 1+
--- NOTE | 2016-12-20 09:39 | Infectious Diseases Prog Note ---
Assessment/Plan Assessment/Plan A: The patient is an 86-year-old female Leukocytosis post op, PEG Sepsis, SP wound infection , osteomyelitis sacrum Wnd Cx : Ecoli , Citrobacter, StrpV SP Debridement Probable UTI EColi +ve Blood cx : CoNS SP Rx ALOC SP PEG HTN DM PVD CAD Paroxysmal atrial fibrillation. History of right lower extremity DVT. Anemia PLAN: continue the patient on Invanz d# 2 / 35 ( SP IV vancomycin. and Zosyn ---> Rocephin d# 7 ) Monitor CBC. Monitor BMP. C Diff if Diarrhea persist ( Asked RN to stop stool softener ) Subjective Constitutional: Denies: anorexia, chills, drenching sweats, fatigue, fever, no symptoms, other Allergies: Coded Allergies: NO KNOWN ALLERGIES (Unverified Allergy, Unknown, 09/05/15) Objective Vital Signs Last 24 Hour Vital Signs Date Time Temp Pulse Resp B/P Pulse Ox O2 Delivery O2 Flow Rate FiO2 12/20/16 08:56 Nasal Cannula 2.0 28 12/20/16 08:56 97 Nasal Cannula 2.0 28 12/20/16 08:55 66 18 Nasal Cannula 2.0 28 12/20/16 08:32 98.0 75 19 141/68 100 Room Air 12/20/16 04:00 97.7 66 18 126/86 99 Nasal Cannula 2.0 12/20/16 00:00 97.9 62 16 129/70 100 Nasal Cannula 2.0 12/19/16 21:00 60 131/75 12/19/16 20:05 Nasal Cannula 3.0 32 12/19/16 20:05 63 18 Nasal Cannula 3.0 32 12/19/16 20:05 95 Nasal Cannula 3.0 32 12/19/16 20:00 97.7 60 16 131/75 94 Room Air 12/19/16 16:00 97.7 70 15 119/69 95 Room Air 12/19/16 14:59 97.2 12/19/16 12:59 97.2 62 18 146/61 92 Nasal Cannula 3.0 12/19/16 10:04 97.9 70 19 143/79 93 Room Air Height (Feet): 5 Height (Inches): 3.00 Weight (Pounds): 140 HEENT: atraumatic Respiratory/Chest: no respiratory distress Cardiovascular: regular rhythm Abdomen: no mass - PEG Laboratory Tests Test 12/20/16 05:00 White Blood Count 17.8 K/UL (4.8-10.8) H Red Blood Count 2.69 M/UL (4.20-5.40) L Hemoglobin 7.5 G/DL (12.0-16.0) L Hematocrit 22.3 % (37.0-47.0) L Mean Corpuscular Volume 83 FL (80-99) Mean Corpuscular Hemoglobin 27.7 PG (27.0-31.0) Mean Corpuscular Hemoglobin Concent 33.4 G/DL (32.0-36.0) Red Cell Distribution Width 18.8 % (11.6-14.8) H Platelet Count 162 K/UL (150-450) Mean Platelet Volume 8.2 FL (6.5-10.1) Neutrophils (%) (Auto) % (45.0-75.0) Lymphocytes (%) (Auto) % (20.0-45.0) Monocytes (%) (Auto) % (1.0-10.0) Eosinophils (%) (Auto) % (0.0-3.0) Basophils (%) (Auto) % (0.0-2.0) Differential Total Cells Counted 100 Neutrophils % (Manual) 90 % (45-75) H Lymphocytes % (Manual) 4 % (20-45) L Monocytes % (Manual) 1 % (1-10) Eosinophils % (Manual) 1 % (0-3) Basophils % (Manual) 0 % (0-2) Band Neutrophils 4 % (0-8) Platelet Estimate Adequate Platelet Morphology Normal Hypochromasia 2+ Anisocytosis 2+ Target Cells 1+ Sodium Level 144 mEQ/L (135-145) Potassium Level 3.5 mEQ/L (3.4-4.9) Chloride Level 108 mEQ/L (98-107) H Carbon Dioxide Level 21 mEQ/L (20-30) Anion Gap 15 (5-15) Blood Urea Nitrogen 23 mg/dL (7-23) Creatinine 0.8 mg/dL (0.5-0.9) Estimat Glomerular Filtration Rate mL/min (>60) Glucose Level 103 mg/dL (74-106) Calcium Level 9.7 mg/dL (8.6-10.2) Current Medications Medications (Trade) Dose Ordered Sig/David Route PRN Reason Start Time Stop Time Status Last Admin Dose Admin Acetaminophen (Tylenol) 650 mg Q4H PRN ORAL fever 12/15/16 09:45 01/14/17 09:44 Albuterol/ Ipratropium (DuoNeb 0.5-3(2.5)mg/3ml) 3 ml Q4H PRN HHN Shortness of Breath 12/15/16 09:45 12/20/16 09:44 Calcitonin [place] (Miacalcin) 1 sprays DAILY NASAL 12/15/16 11:00 01/14/17 10:59 12/19/16 14:30 Dextrose (Dextrose 50%) STAT PRN IV Hypoglycemia 12/15/16 11:00 01/14/17 10:59 12/18/16 21:19 Dextrose/Sodium Chloride 1,000 ml @ 50 mls/hr Q20H IV 12/18/16 13:00 01/17/17 12:59 12/19/16 15:28 Docusate Sodium (Colace) 100 mg TWICE A DAY ORAL 12/15/16 11:00 01/14/17 10:59 Ertapenem/Sodium Chloride (INVanz/Sodium Chloride) 55 ml @ 110 mls/hr Q24H IVPB 12/19/16 12:00 12/24/16 11:59 12/19/16 14:23 Heparin Sodium (Porcine) (Heparin 5000 units/ml) 5,000 units EVERY 12 HOURS SUBQ 12/15/16 11:00 01/14/17 10:59 12/19/16 21:07 Insulin Aspart (NovoLOG) BEFORE MEALS AND HS SUBQ 12/15/16 11:30 01/14/17 11:29 Metoprolol Tartrate (Lopressor) 25 mg Q12HR PEG 12/19/16 21:00 01/18/17 20:59 12/19/16 21:00 Morphine Sulfate (Morphine Sulfate) 2 mg Q4H PRN IVP Moderate Pain (Pain Scale 4-6) 12/15/16 09:45 12/22/16 09:44 12/20/16 04:02 Nitroglycerin (Ntg) 0.4 mg Q5M PRN SL Prn Chest Pain 12/15/16 09:45 01/14/17 09:44 Ondansetron HCl (Zofran) 4 mg Q6H PRN IVP Nausea & Vomiting 12/15/16 11:45 01/14/17 11:44 Pantoprazole (Protonix) 40 mg DAILY IVP 12/15/16 11:00 01/14/17 10:59 12/19/16 14:22 Polyethylene Glycol (Miralax) 17 gm DAILYPRN PRN ORAL Constipation 12/15/16 17:45 01/14/17 17:44 Sodium Hypochlorite (Dakin's Half Strength) 1 applic DAILY TOPIC 12/15/16 11:00 01/14/17 10:59 12/19/16 14:26 Temazepam 15 mg 15 mg HSPRN PRN ORAL Insomnia 12/15/16 17:45 12/22/16 17:44 RADHA BAILON M.D. Dec 20, 2016 09:39
[2016-12-20] MEDS: Dakin's 0.25% (Half Strength) 16oz TOPIC SCH (09:47)
[2016-12-20] MEDS: Pantoprazole Inj IVP SCH (09:48)
[2016-12-20] MEDS: Heparin 5000 units/ml inj SUBQ SCH ×2 (11:01→20:15)
[2016-12-20] MEDS: Metoprolol 25mg tab PEG SCH ×2 (11:03→21:04)
--- NOTE | 2016-12-20 11:40 | General Progress Note ---
Assessment/Plan Status: stable Status Narrative Aredia given 12/19 Assessment/Plan status: Acute renal failure- mainly prerenal improved HyperCalcemia- being treated Leukocytosis / sepsis, on antibiotics other conditions mentioned in PH: -History of anemia. -Hypertension. -Diabetes type 2. -History of coronary artery disease. -Renal failure. -Paroxysmal atrial fibrillation. -History of right lower extremity deep venous thrombosis. -Arthritis. -Alzheimer's dementia. -Pacemaker in situ. Plan: Has PEG DC IV Phos and K supplement as needed- [place]- Monitor renal parameters- per orders- discussed with RN ? DC planning? Subjective ROS Limited/Unobtainable: Yes Allergies: Coded Allergies: NO KNOWN ALLERGIES (Unverified Allergy, Unknown, 09/05/15) Objective Last 24 Hour Vital Signs Date Time Temp Pulse Resp B/P Pulse Ox O2 Delivery O2 Flow Rate FiO2 12/20/16 11:03 77 136/77 12/20/16 08:56 Nasal Cannula 2.0 28 12/20/16 08:56 97 Nasal Cannula 2.0 28 12/20/16 08:55 66 18 Nasal Cannula 2.0 28 12/20/16 08:32 98.0 75 19 141/68 100 Room Air 12/20/16 04:00 97.7 66 18 126/86 99 Nasal Cannula 2.0 12/20/16 00:00 97.9 62 16 129/70 100 Nasal Cannula 2.0 12/19/16 21:00 60 131/75 12/19/16 20:05 Nasal Cannula 3.0 32 12/19/16 20:05 63 18 Nasal Cannula 3.0 32 12/19/16 20:05 95 Nasal Cannula 3.0 32 12/19/16 20:00 97.7 60 16 131/75 94 Room Air 12/19/16 16:00 97.7 70 15 119/69 95 Room Air 12/19/16 14:59 97.2 12/19/16 12:59 97.2 62 18 146/61 92 Nasal Cannula 3.0 Intake and Output 12/19/16 12/20/16 19:00 07:00 Intake Total 680 ml 1560 ml Output Total 120 ml 250 ml Balance 560 ml 1310 ml Intake Free Water 150 ml 300 ml IV Total 310 ml 600 ml Tube Feeding 220 ml 660 ml Output Urine Total 120 ml 250 ml # Bowel Movements 1 Laboratory Tests 12/20/16 05:00: White Blood Count 17.8H, Red Blood Count 2.69L, Hemoglobin 7.5L, Hematocrit 22.3L, Mean Corpuscular Volume 83, Mean Corpuscular Hemoglobin 27.7, Mean Corpuscular Hemoglobin Concent 33.4, Red Cell Distribution Width 18.8H, Platelet Count 162, Mean Platelet Volume 8.2, Neutrophils (%) (Auto) , Lymphocytes (%) (Auto) , Monocytes (%) (Auto) , Eosinophils (%) (Auto) , Basophils (%) (Auto) , Differential Total Cells Counted 100, Neutrophils % ( Manual) 90H, Lymphocytes % (Manual) 4L, Monocytes % (Manual) 1, Eosinophils % ( Manual) 1, Basophils % (Manual) 0, Band Neutrophils 4, Platelet Estimate Adequate, Platelet Morphology Normal, Hypochromasia 2+, Anisocytosis 2+, Target Cells 1+, Sodium Level 144, Potassium Level 3.5, Chloride Level 108H, Carbon Dioxide Level 21, Anion Gap 15, Blood Urea Nitrogen 23, Creatinine 0.8, Estimat Glomerular Filtration Rate , Glucose Level 103, Calcium Level 9.7 Height (Feet): 5 Height (Inches): 3.00 Weight (Pounds): 140 General Appearance: no apparent distress Respiratory/Chest: decreased breath sounds Abdomen: soft, other - PEG+ Objective other PE not changed EARNEST CADET Dec 20, 2016 11:40
[2016-12-20 11:46] VITALS: BP 136/77
[2016-12-20] MEDS: Ertapenem 1 GM in NS 55 ML IVPB SCH (12:19)
--- NOTE | 2016-12-20 13:37 | GI Progress Note ---
Assessment/Plan Problems: (1) Diabetes mellitus ICD Codes: E11.9 - Type 2 diabetes mellitus without complications SNOMED: 15374967 (2) Dysphagia ICD Codes: R13.10 - Dysphagia, unspecified SNOMED: 29834382, 214331604 (3) Encounter for PEG (percutaneous endoscopic gastrostomy) ICD Codes: Z43.1 - Encounter for attention to gastrostomy SNOMED: 623339890, 184028022 (4) Severe malnutrition ICD Codes: E43 - Unspecified severe protein-calorie malnutrition SNOMED: 80388445 (5) Hypoalbuminemia ICD Codes: E88.09 - Other disorders of plasma-protein metabolism, not elsewhere classified SNOMED: 462126868 (6) Leukocytosis ICD Codes: D72.829 - Elevated white blood cell count, unspecified SNOMED: 322024940, 429595689 (7) Iron deficiency ICD Codes: E61.1 - Iron deficiency SNOMED: 55444678 Status: progressing Status Narrative Discussed with Dr. Miles. Assessment/Plan SUMMARY OF FINDINGS: 1. Severe atrophic gastritis. 2. Two gastric polyps removed with the snare polypectomy technique. 3. Status post successful percutaneous endoscopic gastrostomy placement. RECOMMENDATIONS: 1. Abdominal binder. 2. Elevate the head of the bed at all times. 3. G-tube flush. 4. G-tube care. 5. Start tube feeding later today. 6. The patient is currently on ceftriaxone. abx monitor H&H >> transfused prn PPI daily given history of severe gastritis iron panel >> unremarkable bowel regime fu labs The patient was seen and examined at bedside and all new and available data was reviewed in the patients chart. I agree with the above findings, impression and plan. (Patient seen earlier today. Signature stamp does not reflect patient encounter time.). -Ruben Miles MD Subjective Subjective limited Objective Last 24 Hour Vital Signs Date Time Temp Pulse Resp B/P Pulse Ox O2 Delivery O2 Flow Rate FiO2 12/20/16 11:46 96.9 77 19 136/77 100 Room Air 12/20/16 11:03 77 136/77 12/20/16 08:56 Nasal Cannula 2.0 28 12/20/16 08:56 97 Nasal Cannula 2.0 28 12/20/16 08:55 66 18 Nasal Cannula 2.0 28 12/20/16 08:32 98.0 75 19 141/68 100 Room Air 12/20/16 04:00 97.7 66 18 126/86 99 Nasal Cannula 2.0 12/20/16 00:00 97.9 62 16 129/70 100 Nasal Cannula 2.0 12/19/16 21:00 60 131/75 12/19/16 20:05 Nasal Cannula 3.0 32 12/19/16 20:05 63 18 Nasal Cannula 3.0 32 12/19/16 20:05 95 Nasal Cannula 3.0 32 12/19/16 20:00 97.7 60 16 131/75 94 Room Air 12/19/16 16:00 97.7 70 15 119/69 95 Room Air 12/19/16 14:59 97.2 Intake and Output 12/19/16 12/20/16 18:59 06:59 Intake Total 625 ml 1560 ml Output Total 120 ml 250 ml Balance 505 ml 1310 ml Intake Free Water 150 ml 300 ml IV Total 310 ml 600 ml Tube Feeding 165 ml 660 ml Output Urine Total 120 ml 250 ml # Bowel Movements 1 Laboratory Tests Test 12/20/16 05:00 White Blood Count 17.8 K/UL (4.8-10.8) H Red Blood Count 2.69 M/UL (4.20-5.40) L Hemoglobin 7.5 G/DL (12.0-16.0) L Hematocrit 22.3 % (37.0-47.0) L Mean Corpuscular Volume 83 FL (80-99) Mean Corpuscular Hemoglobin 27.7 PG (27.0-31.0) Mean Corpuscular Hemoglobin Concent 33.4 G/DL (32.0-36.0) Red Cell Distribution Width 18.8 % (11.6-14.8) H Platelet Count 162 K/UL (150-450) Mean Platelet Volume 8.2 FL (6.5-10.1) Neutrophils (%) (Auto) % (45.0-75.0) Lymphocytes (%) (Auto) % (20.0-45.0) Monocytes (%) (Auto) % (1.0-10.0) Eosinophils (%) (Auto) % (0.0-3.0) Basophils (%) (Auto) % (0.0-2.0) Differential Total Cells Counted 100 Neutrophils % (Manual) 90 % (45-75) H Lymphocytes % (Manual) 4 % (20-45) L Monocytes % (Manual) 1 % (1-10) Eosinophils % (Manual) 1 % (0-3) Basophils % (Manual) 0 % (0-2) Band Neutrophils 4 % (0-8) Platelet Estimate Adequate Platelet Morphology Normal Hypochromasia 2+ Anisocytosis 2+ Target Cells 1+ Sodium Level 144 mEQ/L (135-145) Potassium Level 3.5 mEQ/L (3.4-4.9) Chloride Level 108 mEQ/L (98-107) H Carbon Dioxide Level 21 mEQ/L (20-30) Anion Gap 15 (5-15) Blood Urea Nitrogen 23 mg/dL (7-23) Creatinine 0.8 mg/dL (0.5-0.9) Estimat Glomerular Filtration Rate mL/min (>60) Glucose Level 103 mg/dL (74-106) Calcium Level 9.7 mg/dL (8.6-10.2) Height (Feet): 5 Height (Inches): 3.00 Weight (Pounds): 140 General Appearance: no apparent distress, alert Cardiovascular: normal rate Respiratory/Chest: other - 2LNC Objective DATE OF PROCEDURE: 12/19/2016 SURGEON: Ruben Miles M.D. PROCEDURE: Upper endoscopy with snare polypectomy biopsy and G-tube placement. SUMMARY OF FINDINGS: 1. Severe atrophic gastritis. 2. Two gastric polyps removed with the snare polypectomy technique. 3. Status post successful percutaneous endoscopic gastrostomy placement. RECOMMENDATIONS: 1. Abdominal binder. 2. Elevate the head of the bed at all times. 3. G-tube flush. 4. G-tube care. 5. Start tube feeding later today. 6. The patient is currently on ceftriaxone. DATE OF PROCEDURE: 10/23/2015 SURGEON: Ruben Miles M.D. PROCEDURE: Upper endoscopy with biopsy and colonoscopy with biopsy and polypectomy. INDICATION: Anemia, screening colonoscopy evaluation, abdominal pain, and GERD. SUMMARY OF FINDINGS: 1. Severe gastritis, status post biopsy. 2. Duodenal polyp, status post biopsy. 3. Inflammatory looking polyp in the antrum of the stomach, status post biopsy. 4. Paraesophageal hernia. 5. Two colonic polyp removed, see above for details. 6. Diverticulosis. 7. Internal hemorrhoids. Lyndsay Torres N.P. Dec 20, 2016 13:37 RUBEN MILES Dec 23, 2016 08:02
[2016-12-20 16:00] VITALS: BP 119/56
--- NOTE | 2016-12-20 16:10 | Internal Med Progress Note ---
Subjective Date of Service: Dec 20, 2016 Physician Name Bradley Davis Attending Physician Titi Cruz MD Current Medications Medications (Trade) Dose Ordered Sig/David Route PRN Reason Start Time Stop Time Status Last Admin Dose Admin Acetaminophen (Tylenol) 650 mg Q4H PRN ORAL fever 12/15/16 09:45 01/14/17 09:44 Calcitonin [place] (Miacalcin) 1 sprays DAILY NASAL 12/15/16 11:00 01/14/17 10:59 12/20/16 09:49 Dextrose (Dextrose 50%) STAT PRN IV Hypoglycemia 12/15/16 11:00 01/14/17 10:59 12/18/16 21:19 Ertapenem/Sodium Chloride (INVanz/Sodium Chloride) 55 ml @ 110 mls/hr Q24H IVPB 12/19/16 12:00 12/24/16 11:59 12/20/16 12:19 Heparin Sodium (Porcine) (Heparin 5000 units/ml) 5,000 units EVERY 12 HOURS SUBQ 12/15/16 11:00 01/14/17 10:59 12/20/16 11:01 Insulin Aspart (NovoLOG) BEFORE MEALS AND HS SUBQ 12/15/16 11:30 01/14/17 11:29 12/20/16 12:57 Metoprolol Tartrate (Lopressor) 25 mg Q12HR PEG 12/19/16 21:00 01/18/17 20:59 12/20/16 11:03 Morphine Sulfate (Morphine Sulfate) 2 mg Q4H PRN IVP Moderate Pain (Pain Scale 4-6) 12/15/16 09:45 12/22/16 09:44 12/20/16 04:02 Nitroglycerin (Ntg) 0.4 mg Q5M PRN SL Prn Chest Pain 12/15/16 09:45 01/14/17 09:44 Ondansetron HCl (Zofran) 4 mg Q6H PRN IVP Nausea & Vomiting 12/15/16 11:45 01/14/17 11:44 Polyethylene Glycol (Miralax) 17 gm DAILYPRN PRN ORAL Constipation 12/15/16 17:45 01/14/17 17:44 Ranitidine HCl (Zantac) 150 mg TWICE A DAY PEG 12/20/16 18:00 01/19/17 17:59 Sodium Hypochlorite (Dakin's Half Strength) 1 applic DAILY TOPIC 12/15/16 11:00 01/14/17 10:59 12/20/16 09:47 Temazepam 15 mg 15 mg HSPRN PRN ORAL Insomnia 12/15/16 17:45 12/22/16 17:44 Allergies: Coded Allergies: NO KNOWN ALLERGIES (Unverified Allergy, Unknown, 09/05/15) Subjective 86 YO F admitted with sepsis. S/P debridement sacral decubitus ulcer on . Cover for Int Med-Dr Cruz. S/P PEG placement 12/19/16. Await acceptance at [facility]. Objective Last Vital Signs Date Time Temp Pulse Resp B/P Pulse Ox O2 Delivery O2 Flow Rate FiO2 12/20/16 11:46 96.9 77 19 136/77 100 Room Air 12/20/16 08:56 2.0 28 Laboratory Tests Test 12/20/16 05:00 White Blood Count 17.8 K/UL (4.8-10.8) H Red Blood Count 2.69 M/UL (4.20-5.40) L Hemoglobin 7.5 G/DL (12.0-16.0) L Hematocrit 22.3 % (37.0-47.0) L Mean Corpuscular Volume 83 FL (80-99) Mean Corpuscular Hemoglobin 27.7 PG (27.0-31.0) Mean Corpuscular Hemoglobin Concent 33.4 G/DL (32.0-36.0) Red Cell Distribution Width 18.8 % (11.6-14.8) H Platelet Count 162 K/UL (150-450) Mean Platelet Volume 8.2 FL (6.5-10.1) Neutrophils (%) (Auto) % (45.0-75.0) Lymphocytes (%) (Auto) % (20.0-45.0) Monocytes (%) (Auto) % (1.0-10.0) Eosinophils (%) (Auto) % (0.0-3.0) Basophils (%) (Auto) % (0.0-2.0) Differential Total Cells Counted 100 Neutrophils % (Manual) 90 % (45-75) H Lymphocytes % (Manual) 4 % (20-45) L Monocytes % (Manual) 1 % (1-10) Eosinophils % (Manual) 1 % (0-3) Basophils % (Manual) 0 % (0-2) Band Neutrophils 4 % (0-8) Platelet Estimate Adequate Platelet Morphology Normal Hypochromasia 2+ Anisocytosis 2+ Target Cells 1+ Sodium Level 144 mEQ/L (135-145) Potassium Level 3.5 mEQ/L (3.4-4.9) Chloride Level 108 mEQ/L (98-107) H Carbon Dioxide Level 21 mEQ/L (20-30) Anion Gap 15 (5-15) Blood Urea Nitrogen 23 mg/dL (7-23) Creatinine 0.8 mg/dL (0.5-0.9) Estimat Glomerular Filtration Rate mL/min (>60) Glucose Level 103 mg/dL (74-106) Calcium Level 9.7 mg/dL (8.6-10.2) Intake and Output 12/19/16 12/20/16 19:00 07:00 Intake Total 680 ml 1560 ml Output Total 120 ml 250 ml Balance 560 ml 1310 ml Intake Free Water 150 ml 300 ml IV Total 310 ml 600 ml Tube Feeding 220 ml 660 ml Output Urine Total 120 ml 250 ml # Bowel Movements 1 Objective General Appearance: mild distress, lethargic, thin EENT: PERRL/EOMI, normal ENT inspection Neck: non-tender, normal alignment Cardiovascular: normal peripheral pulses, no gallop/murmur, no JVD, irregularly irregular Respiratory/Chest: chest wall non-tender, crackles/rales, rhonchi - bilaterally , expiratory wheezing Abdomen: normal bowel sounds, non tender, soft, no organomegaly, no mass Extremities: normal range of motion, non-tender Skin: normal pigmentation, warm/dry Assessment/Plan Problem List: (1) Dysphagia Assessment & Plan: S/P PEG placement 12/19/16-See GI note-Dr Miles. (2) Hypokalemia Assessment & Plan: See nephrology note. (3) Hypernatremia (4) UTI (urinary tract infection) Assessment & Plan: E. Coli. Continue ertapenem per ID. (5) Severe malnutrition (6) Renal failure Assessment & Plan: Followed by nephrology - Dr Leone- see note. (7) Sepsis (8) Sacral decubitus ulcer, stage IV Assessment & Plan: S/P Debridement 12/14/16. Continue ertapenem per ID (9) Hypertension (10) Coronary artery disease (11) Atrial fibrillation Assessment & Plan: See cardiology note. (12) History of DVT (deep vein thrombosis) (13) Anemia (14) Diabetes mellitus Assessment & Plan: Hyperglycemia. Add novolog sliding scale. (15) Osteomyelitis of sacrum Assessment & Plan: Continue Invanz day #. See ID note. Status: progressing Assessment/Plan Transfer to [facility] when accepted. BRADLEY DAVIS Dec 20, 2016 16:10
--- NOTE | 2016-12-20 16:26 | Cardiac Electrophysiology PN ---
Assessment/Plan Assessment/Plan 1. Status post Biotronik single chamber pacemaker with NL function.. 2. Chronic atrial fibrillation. Continue metoprolol 25 mg b.i.d. Keep off anticoagulation for severe bleeding. 3. Hypertension. On metoprolol 25 mg b.i.d. 4. Sacral decubitus. Status post excision and debridement of sacral ulcer and deep open bone biopsy of the sacrum by Dr. Steinberg. 5. History of anemia. 6. Chronic kidney disease. The current creatinine is normal, but BUN is 37. 7. Diastolic dysfunction. BNP of 8000. 8. Dysphagia.S/P PEG 12/19/16 DW RN at bedside. Subjective Subjective Comfortable in NAD. Had PEG placement yesterday. Objective Last 24 Hour Vital Signs Date Time Temp Pulse Resp B/P Pulse Ox O2 Delivery O2 Flow Rate FiO2 12/20/16 11:46 96.9 77 19 136/77 100 Room Air 12/20/16 11:03 77 136/77 12/20/16 08:56 Nasal Cannula 2.0 28 12/20/16 08:56 97 Nasal Cannula 2.0 28 12/20/16 08:55 66 18 Nasal Cannula 2.0 28 12/20/16 08:32 98.0 75 19 141/68 100 Room Air 12/20/16 04:00 97.7 66 18 126/86 99 Nasal Cannula 2.0 12/20/16 00:00 97.9 62 16 129/70 100 Nasal Cannula 2.0 12/19/16 21:00 60 131/75 12/19/16 20:05 Nasal Cannula 3.0 32 12/19/16 20:05 63 18 Nasal Cannula 3.0 32 12/19/16 20:05 95 Nasal Cannula 3.0 32 12/19/16 20:00 97.7 60 16 131/75 94 Room Air Intake and Output 12/19/16 12/20/16 19:00 07:00 Intake Total 680 ml 1560 ml Output Total 120 ml 250 ml Balance 560 ml 1310 ml Intake Free Water 150 ml 300 ml IV Total 310 ml 600 ml Tube Feeding 220 ml 660 ml Output Urine Total 120 ml 250 ml # Bowel Movements 1 Laboratory Tests Test 12/20/16 05:00 White Blood Count 17.8 K/UL (4.8-10.8) H Red Blood Count 2.69 M/UL (4.20-5.40) L Hemoglobin 7.5 G/DL (12.0-16.0) L Hematocrit 22.3 % (37.0-47.0) L Mean Corpuscular Volume 83 FL (80-99) Mean Corpuscular Hemoglobin 27.7 PG (27.0-31.0) Mean Corpuscular Hemoglobin Concent 33.4 G/DL (32.0-36.0) Red Cell Distribution Width 18.8 % (11.6-14.8) H Platelet Count 162 K/UL (150-450) Mean Platelet Volume 8.2 FL (6.5-10.1) Neutrophils (%) (Auto) % (45.0-75.0) Lymphocytes (%) (Auto) % (20.0-45.0) Monocytes (%) (Auto) % (1.0-10.0) Eosinophils (%) (Auto) % (0.0-3.0) Basophils (%) (Auto) % (0.0-2.0) Differential Total Cells Counted 100 Neutrophils % (Manual) 90 % (45-75) H Lymphocytes % (Manual) 4 % (20-45) L Monocytes % (Manual) 1 % (1-10) Eosinophils % (Manual) 1 % (0-3) Basophils % (Manual) 0 % (0-2) Band Neutrophils 4 % (0-8) Platelet Estimate Adequate Platelet Morphology Normal Hypochromasia 2+ Anisocytosis 2+ Target Cells 1+ Sodium Level 144 mEQ/L (135-145) Potassium Level 3.5 mEQ/L (3.4-4.9) Chloride Level 108 mEQ/L (98-107) H Carbon Dioxide Level 21 mEQ/L (20-30) Anion Gap 15 (5-15) Blood Urea Nitrogen 23 mg/dL (7-23) Creatinine 0.8 mg/dL (0.5-0.9) Estimat Glomerular Filtration Rate mL/min (>60) Glucose Level 103 mg/dL (74-106) Calcium Level 9.7 mg/dL (8.6-10.2) Objective HEAD AND NECK: Shows no JVD or carotid bruits. LUNGS: Clear. CARDIOVASCULAR: Shows regular S1 and S2 with no gallop or murmur. The pacemaker is at left subclavian. ABDOMEN: Soft.PEG in place EXTREMITIES: Large sacral decubitus status post surgery.No edema STAR ROA Dec 20, 2016 16:26
[2016-12-20 16:52] LABS: MEAN CORPUSCULAR HEMOGLOBIN 27.4 PG (27.0-31.0); MEAN CORPUSCULAR HGB CONC 33.4 G/DL (32.0-36.0); MEAN CORPUSCULAR VOLUME 82 FL (80-99); MEAN PLATELET VOLUME 7.6 FL (6.5-10.1); PLATELET COUNT 163 K/UL (150-450); RED BLOOD COUNT 2.42 M/UL (4.20-5.40); WHITE BLOOD COUNT 15.6 K/UL (4.8-10.8)
[2016-12-20 20:00] VITALS: BP 124/63
[2016-12-20 21:21] LABS: BAND NEUTROPHILS % (MANUAL) 2 % (0-8); LYMPHOCYTES % (MANUAL) 7 % (20-45); NEUTROPHILS % (MANUAL) 89 % (45-75); TOTAL CELLS COUNTED 100
[2016-12-20 21:26] LABS: BASOPHILS % (MANUAL) 0 % (0-2); EOSINOPHILS % (MANUAL) 0 % (0-3); PLATELET ESTIMATE ADEQUATE
[2016-12-20 21:27] LABS: TARGET CELLS 2+
--- NOTE | 2016-12-20 23:11 | Pulmonology Progress Note ---
Assessment/Plan Problems: (1) Sepsis (2) Acute encephalopathy (3) Renal failure (4) UTI (urinary tract infection) (5) Decubitus ulcer of sacral area (6) Anemia (7) Alzheimer's dementia Assessment/Plan s/p debridement NG tube insertion was not successful continue antibiotics check cultures check electrolytes iv fluids check Ca daily wbc decreasing dvt prophylaxis Subjective ROS Limited/Unobtainable: Yes Constitutional: Reports: anorexia, chills, fatigue, fever Respiratory: Reports: dyspnea at rest, hemoptysis, shortness of breath, sputum Genitourinary: Reports: dysuria, frequency, hematuria, nocturia, urgency Neurologic: Reports: confusion, weakness Allergies: Coded Allergies: NO KNOWN ALLERGIES (Unverified Allergy, Unknown, 09/05/15) Objective Last 24 Hour Vital Signs Date Time Temp Pulse Resp B/P Pulse Ox O2 Delivery O2 Flow Rate FiO2 12/20/16 21:04 64 124/63 12/20/16 20:05 64 18 Nasal Cannula 2.0 28 12/20/16 20:05 96 Nasal Cannula 2.0 28 12/20/16 20:05 Nasal Cannula 2.0 28 12/20/16 20:00 97.5 70 16 124/63 99 Room Air 12/20/16 16:00 97.3 69 17 119/56 97 12/20/16 11:46 96.9 77 19 136/77 100 Room Air 12/20/16 11:03 77 136/77 12/20/16 08:56 Nasal Cannula 2.0 28 12/20/16 08:56 97 Nasal Cannula 2.0 28 12/20/16 08:55 66 18 Nasal Cannula 2.0 28 12/20/16 08:32 98.0 75 19 141/68 100 Room Air 12/20/16 04:00 97.7 66 18 126/86 99 Nasal Cannula 2.0 12/20/16 00:00 97.9 62 16 129/70 100 Nasal Cannula 2.0 Intake and Output 12/19/16 12/20/16 19:00 07:00 Intake Total 680 ml 1560 ml Output Total 120 ml 250 ml Balance 560 ml 1310 ml Intake Free Water 150 ml 300 ml IV Total 310 ml 600 ml Tube Feeding 220 ml 660 ml Output Urine Total 120 ml 250 ml # Bowel Movements 1 General Appearance: no acute distress HEENT: normocephalic, atraumatic, PERRL Respiratory/Chest: chest wall non-tender, decreased breath sounds, accessory muscle use, crackles/rales, rhonchi Breasts: no masses Cardiovascular: normal peripheral pulses, normal rate, regular rhythm, no JVD Abdomen: normal bowel sounds, soft, non tender, no organomegaly, non distended Genitourinary: normal external genitalia Skin: rash, lesions, ulcers 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 normal, responsive, disoriented Laboratory Tests 12/20/16 05:00: White Blood Count 17.8H, Red Blood Count 2.69L, Hemoglobin 7.5L, Hematocrit 22.3L, Mean Corpuscular Volume 83, Mean Corpuscular Hemoglobin 27.7, Mean Corpuscular Hemoglobin Concent 33.4, Red Cell Distribution Width 18.8H, Platelet Count 162, Mean Platelet Volume 8.2, Neutrophils (%) (Auto) , Lymphocytes (%) (Auto) , Monocytes (%) (Auto) , Eosinophils (%) (Auto) , Basophils (%) (Auto) , Differential Total Cells Counted 100, Neutrophils % ( Manual) 90H, Lymphocytes % (Manual) 4L, Monocytes % (Manual) 1, Eosinophils % ( Manual) 1, Basophils % (Manual) 0, Band Neutrophils 4, Platelet Estimate Adequate, Platelet Morphology Normal, Hypochromasia 2+, Anisocytosis 2+, Target Cells 1+, Sodium Level 144, Potassium Level 3.5, Chloride Level 108H, Carbon Dioxide Level 21, Anion Gap 15, Blood Urea Nitrogen 23, Creatinine 0.8, Estimat Glomerular Filtration Rate , Glucose Level 103, Calcium Level 9.7 12/20/16 16:35: White Blood Count 15.6H, Red Blood Count 2.42L, Hemoglobin 6.6*L, Hematocrit 19.8L, Mean Corpuscular Volume 82, Mean Corpuscular Hemoglobin 27.4, Mean Corpuscular Hemoglobin Concent 33.4, Red Cell Distribution Width 18.0H, Platelet Count 163, Mean Platelet Volume 7.6, Neutrophils (%) (Auto) , Lymphocytes (%) (Auto) , Monocytes (%) (Auto) , Eosinophils (%) (Auto) , Basophils (%) (Auto) , Differential Total Cells Counted 100, Neutrophils % ( Manual) 89H, Lymphocytes % (Manual) 7L, Monocytes % (Manual) 2, Eosinophils % ( Manual) 0, Basophils % (Manual) 0, Band Neutrophils 2, Platelet Estimate Adequate, Platelet Morphology , Target Cells 2+, Giant Platelets 1+ Current Medications Medications (Trade) Dose Ordered Sig/David Route PRN Reason Start Time Stop Time Status Last Admin Dose Admin Acetaminophen (Tylenol) 650 mg Q4H PRN ORAL fever 12/15/16 09:45 01/14/17 09:44 Calcitonin [place] (Miacalcin) 1 sprays DAILY NASAL 12/15/16 11:00 01/14/17 10:59 12/20/16 09:49 Dextrose (Dextrose 50%) STAT PRN IV Hypoglycemia 12/15/16 11:00 01/14/17 10:59 12/18/16 21:19 Ertapenem/Sodium Chloride (INVanz/Sodium Chloride) 55 ml @ 110 mls/hr Q24H IVPB 12/19/16 12:00 12/24/16 11:59 12/20/16 12:19 Heparin Sodium (Porcine) (Heparin 5000 units/ml) 5,000 units EVERY 12 HOURS SUBQ 12/15/16 11:00 01/14/17 10:59 12/20/16 11:01 Insulin Aspart (NovoLOG) BEFORE MEALS AND HS SUBQ 12/15/16 11:30 01/14/17 11:29 12/20/16 21:05 Metoprolol Tartrate (Lopressor) 25 mg Q12HR PEG 12/19/16 21:00 01/18/17 20:59 12/20/16 21:04 Morphine Sulfate (Morphine Sulfate) 2 mg Q4H PRN IVP Moderate Pain (Pain Scale 4-6) 12/15/16 09:45 12/22/16 09:44 12/20/16 04:02 Nitroglycerin (Ntg) 0.4 mg Q5M PRN SL Prn Chest Pain 12/15/16 09:45 01/14/17 09:44 Ondansetron HCl (Zofran) 4 mg Q6H PRN IVP Nausea & Vomiting 12/15/16 11:45 01/14/17 11:44 Polyethylene Glycol (Miralax) 17 gm DAILYPRN PRN ORAL Constipation 12/15/16 17:45 01/14/17 17:44 Ranitidine HCl (Zantac) 150 mg TWICE A DAY PEG 12/20/16 18:00 01/19/17 17:59 12/20/16 17:33 Sodium Hypochlorite (Dakin's Half Strength) 1 applic DAILY TOPIC 12/15/16 11:00 01/14/17 10:59 12/20/16 09:47 Temazepam 15 mg 15 mg HSPRN PRN ORAL Insomnia 12/15/16 17:45 12/22/16 17:44 EVENS CASTELLON Dec 20, 2016 23:11
[2016-12-21] VITALS (7 sets, daily range): BP systolic 114–140; BP diastolic 58–86
[2016-12-21 04:20] LABS: MEAN CORPUSCULAR HEMOGLOBIN 28.8 PG (27.0-31.0); MEAN CORPUSCULAR HGB CONC 34.1 G/DL (32.0-36.0); MEAN CORPUSCULAR VOLUME 84 FL (80-99); MEAN PLATELET VOLUME 7.9 FL (6.5-10.1); PLATELET COUNT 159 K/UL (150-450); RED CELL DISTRIBUTION WIDTH 17.2 % (11.6-14.8); WHITE BLOOD COUNT 15.1 K/UL (4.8-10.8)
[2016-12-21] MEDS: NovoLOG Insulin Flexpen SUBQ SCH ×4 (06:07→20:27)
[2016-12-21 07:16] LABS: ALANINE AMINOTRANSFERASE 11 U/L (3-33); ALBUMIN/GLOBULIN RATIO 0.6 (1.0-2.7); ANION GAP 12 (5-15); ASPARTATE AMINO TRANSFERASE 14 U/L (5-40); CALCIUM 9.2 mg/dL (8.6-10.2); CARBON DIOXIDE 23 mEQ/L (20-30); CHLORIDE 111 mEQ/L (98-107); CREATININE 0.8 mg/dL (0.5-0.9); CRP QUANT 11.1 mg/dL (< 0.5); HEMOLYSIS 2; MAGNESIUM 1.7 mg/dL (1.7-2.5); PHOSPHORUS 1.8 mg/dL (2.5-4.8); POTASSIUM 3.3 mEQ/L (3.4-4.9); SODIUM 146 mEQ/L (135-145); TOTAL PROTEIN 4.7 g/dL (6.6-8.7); URIC ACID 5.9 mg/dL (3.0-7.5)
[2016-12-21] MEDS: Heparin 5000 units/ml inj SUBQ SCH ×2 (09:00→20:27)
[2016-12-21 09:35] LABS: OTHERS PATHOLOGIST COMMENT
[2016-12-21] MEDS: Metoprolol 25mg tab PEG SCH ×2 (10:23→20:55)
[2016-12-21] MEDS: Dakin's 0.25% (Half Strength) 16oz TOPIC SCH (10:23)
--- NOTE | 2016-12-21 11:39 | GI Progress Note ---
Assessment/Plan Problems: (1) Diabetes mellitus ICD Codes: E11.9 - Type 2 diabetes mellitus without complications SNOMED: 54636583 (2) Dysphagia ICD Codes: R13.10 - Dysphagia, unspecified SNOMED: 98153070, 082710940 (3) Encounter for PEG (percutaneous endoscopic gastrostomy) ICD Codes: Z43.1 - Encounter for attention to gastrostomy SNOMED: 717030297, 409593826 (4) Severe malnutrition ICD Codes: E43 - Unspecified severe protein-calorie malnutrition SNOMED: 38163125 (5) Hypoalbuminemia ICD Codes: E88.09 - Other disorders of plasma-protein metabolism, not elsewhere classified SNOMED: 551680680 (6) Leukocytosis ICD Codes: D72.829 - Elevated white blood cell count, unspecified SNOMED: 553982669, 176429951 (7) Iron deficiency ICD Codes: E61.1 - Iron deficiency SNOMED: 10616563 Status: stable, progressing Status Narrative Discussed with Dr. Miles. Assessment/Plan SUMMARY OF FINDINGS: 1. Severe atrophic gastritis. 2. Two gastric polyps removed with the snare polypectomy technique. 3. Status post successful percutaneous endoscopic gastrostomy placement. RECOMMENDATIONS: 1. Abdominal binder. 2. Elevate the head of the bed at all times. 3. G-tube flush. 4. G-tube care. 5. Start tube feeding later today. 6. The patient is currently on ceftriaxone. abx monitor H&H >> transfused prn >> 1 unit yesterday PPI daily given history of severe gastritis iron panel >> unremarkable bowel regime fu labs Subjective Subjective limited Objective Last 24 Hour Vital Signs Date Time Temp Pulse Resp B/P Pulse Ox O2 Delivery O2 Flow Rate FiO2 12/21/16 10:23 77 130/81 12/21/16 08:08 97.0 69 19 139/76 100 Room Air 12/21/16 07:57 Nasal Cannula 2.0 28 12/21/16 07:56 96 Nasal Cannula 2.0 28 12/21/16 07:56 63 18 Nasal Cannula 2.0 28 12/21/16 04:00 98.1 76 18 134/75 100 Nasal Cannula 3.0 12/21/16 00:00 98.2 72 18 123/71 99 Nasal Cannula 3.0 12/20/16 21:04 64 124/63 12/20/16 20:05 64 18 Nasal Cannula 2.0 28 12/20/16 20:05 96 Nasal Cannula 2.0 28 12/20/16 20:05 Nasal Cannula 2.0 28 12/20/16 20:00 97.5 70 16 124/63 99 Room Air 12/20/16 16:00 97.3 69 17 119/56 97 12/20/16 11:46 96.9 77 19 136/77 100 Room Air Intake and Output 12/20/16 12/21/16 19:00 07:00 Intake Total 1215 ml 840 ml Output Total 400 ml 350 ml Balance 815 ml 490 ml Intake Free Water 300 ml 150 ml IV Total 255 ml Tube Feeding 660 ml 440 ml Blood Product 250 ml Output Urine Total 400 ml 350 ml Laboratory Tests Test 12/20/16 16:35 12/21/16 04:00 White Blood Count 15.6 K/UL (4.8-10.8) H 15.1 K/UL (4.8-10.8) H Red Blood Count 2.42 M/UL (4.20-5.40) L 3.10 M/UL (4.20-5.40) L Hemoglobin 6.6 G/DL (12.0-16.0) *L 8.9 G/DL (12.0-16.0) #L Hematocrit 19.8 % (37.0-47.0) L 26.2 % (37.0-47.0) #L Mean Corpuscular Volume 82 FL (80-99) 84 FL (80-99) Mean Corpuscular Hemoglobin 27.4 PG (27.0-31.0) 28.8 PG (27.0-31.0) Mean Corpuscular Hemoglobin Concent 33.4 G/DL (32.0-36.0) 34.1 G/DL (32.0-36.0) Red Cell Distribution Width 18.0 % (11.6-14.8) H 17.2 % (11.6-14.8) H Platelet Count 163 K/UL (150-450) 159 K/UL (150-450) Mean Platelet Volume 7.6 FL (6.5-10.1) 7.9 FL (6.5-10.1) Neutrophils (%) (Auto) % (45.0-75.0) % (45.0-75.0) Lymphocytes (%) (Auto) % (20.0-45.0) % (20.0-45.0) Monocytes (%) (Auto) % (1.0-10.0) % (1.0-10.0) Eosinophils (%) (Auto) % (0.0-3.0) % (0.0-3.0) Basophils (%) (Auto) % (0.0-2.0) % (0.0-2.0) Differential Total Cells Counted 100 Neutrophils % (Manual) 89 % (45-75) H Lymphocytes % (Manual) 7 % (20-45) L Monocytes % (Manual) 2 % (1-10) Eosinophils % (Manual) 0 % (0-3) Basophils % (Manual) 0 % (0-2) Band Neutrophils 2 % (0-8) Other Cell Type Pathologist comment Platelet Estimate Adequate Platelet Morphology Giant Platelets 1+ Target Cells 2+ Sodium Level 146 mEQ/L (135-145) H Potassium Level 3.3 mEQ/L (3.4-4.9) L Chloride Level 111 mEQ/L (98-107) H Carbon Dioxide Level 23 mEQ/L (20-30) Anion Gap 12 (5-15) Blood Urea Nitrogen 26 mg/dL (7-23) H Creatinine 0.8 mg/dL (0.5-0.9) Estimat Glomerular Filtration Rate mL/min (>60) Glucose Level 103 mg/dL (74-106) Uric Acid 5.9 mg/dL (3.0-7.5) Calcium Level 9.2 mg/dL (8.6-10.2) Phosphorus Level 1.8 mg/dL (2.5-4.8) L Magnesium Level 1.7 mg/dL (1.7-2.5) Total Bilirubin 0.3 mg/dL (0.0-1.2) Aspartate Amino Transf (AST/SGOT) 14 U/L (5-40) Alanine Aminotransferase (ALT/SGPT) 11 U/L (3-33) Alkaline Phosphatase 77 U/L (35-104) Total Creatine Kinase 7 U/L (26-140) L C-Reactive Protein, Quantitative 11.1 mg/dL (< 0.5) H Total Protein 4.7 g/dL (6.6-8.7) L Albumin 1.8 g/dL (3.5-5.2) L Globulin 2.9 g/dL Albumin/Globulin Ratio 0.6 (1.0-2.7) L Height (Feet): 5 Height (Inches): 3.00 Weight (Pounds): 140 General Appearance: no apparent distress, alert, thin Cardiovascular: normal rate Respiratory/Chest: normal breath sounds Abdominal Exam: GT site - c/d/i Objective DATE OF PROCEDURE: 12/19/2016 SURGEON: Ruben Miles M.D. PROCEDURE: Upper endoscopy with snare polypectomy biopsy and G-tube placement. SUMMARY OF FINDINGS: 1. Severe atrophic gastritis. 2. Two gastric polyps removed with the snare polypectomy technique. 3. Status post successful percutaneous endoscopic gastrostomy placement. RECOMMENDATIONS: 1. Abdominal binder. 2. Elevate the head of the bed at all times. 3. G-tube flush. 4. G-tube care. 5. Start tube feeding later today. 6. The patient is currently on ceftriaxone. DATE OF PROCEDURE: 10/23/2015 SURGEON: Ruben Miles M.D. PROCEDURE: Upper endoscopy with biopsy and colonoscopy with biopsy and polypectomy. INDICATION: Anemia, screening colonoscopy evaluation, abdominal pain, and GERD. SUMMARY OF FINDINGS: 1. Severe gastritis, status post biopsy. 2. Duodenal polyp, status post biopsy. 3. Inflammatory looking polyp in the antrum of the stomach, status post biopsy. 4. Paraesophageal hernia. 5. Two colonic polyp removed, see above for details. 6. Diverticulosis. 7. Internal hemorrhoids. Lyndsay Torres N.P. Dec 21, 2016 11:39
[2016-12-21] MEDS ORDERED: Potassium Phosphate 30 MM in NS 275 ML IV ONE (12:00)
--- NOTE | 2016-12-21 12:24 | Internal Med Progress Note ---
Subjective Date of Service: Dec 21, 2016 Physician Name Bradley Davis Attending Physician Titi Cruz MD Current Medications Medications (Trade) Dose Ordered Sig/David Route PRN Reason Start Time Stop Time Status Last Admin Dose Admin Acetaminophen (Tylenol) 650 mg Q4H PRN ORAL fever 12/15/16 09:45 01/14/17 09:44 Calcitonin [place] (Miacalcin) 1 sprays DAILY NASAL 12/15/16 11:00 01/14/17 10:59 12/21/16 10:23 Dextrose (Dextrose 50%) STAT PRN IV Hypoglycemia 12/15/16 11:00 01/14/17 10:59 12/18/16 21:19 Ertapenem/Sodium Chloride (INVanz/Sodium Chloride) 55 ml @ 110 mls/hr Q24H IVPB 12/19/16 12:00 12/24/16 11:59 12/20/16 12:19 Heparin Sodium (Porcine) (Heparin 5000 units/ml) 5,000 units EVERY 12 HOURS SUBQ 12/15/16 11:00 01/14/17 10:59 12/20/16 11:01 Influenza Virus Vaccine (Flu Vaccine) 0.5 ml ONCE ONCE IM 12/21/16 11:00 12/21/16 11:01 UNV Insulin Aspart (NovoLOG) BEFORE MEALS AND HS SUBQ 12/15/16 11:30 01/14/17 11:29 12/20/16 21:05 Metoprolol Tartrate (Lopressor) 25 mg Q12HR PEG 12/19/16 21:00 01/18/17 20:59 12/21/16 10:23 Morphine Sulfate (Morphine Sulfate) 2 mg Q4H PRN IVP Moderate Pain (Pain Scale 4-6) 12/15/16 09:45 12/22/16 09:44 12/20/16 04:02 Nitroglycerin (Ntg) 0.4 mg Q5M PRN SL Prn Chest Pain 12/15/16 09:45 01/14/17 09:44 Ondansetron HCl (Zofran) 4 mg Q6H PRN IVP Nausea & Vomiting 12/15/16 11:45 01/14/17 11:44 Polyethylene Glycol (Miralax) 17 gm DAILYPRN PRN ORAL Constipation 12/15/16 17:45 01/14/17 17:44 Potassium Phosphate/Sodium Chloride (Potassium Phosphate/Sodium Chloride) 285 ml @ 47.5 mls/hr ONCE ONCE IV 12/21/16 12:00 12/21/16 17:59 Ranitidine HCl 150 mg 150 mg TWICE A DAY PEG 12/20/16 18:00 01/19/17 17:59 12/21/16 10:23 Sodium Hypochlorite (Dakin's Half Strength) 1 applic DAILY TOPIC 12/15/16 11:00 01/14/17 10:59 12/21/16 10:23 Temazepam 15 mg 15 mg HSPRN PRN ORAL Insomnia 12/15/16 17:45 12/22/16 17:44 Allergies: Coded Allergies: NO KNOWN ALLERGIES (Unverified Allergy, Unknown, 09/05/15) ROS Limited/Unobtainable: Yes Subjective 86 YO F admitted with sepsis. S/P debridement sacral decubitus ulcer on . Cover for Int Med-Dr Cruz. S/P PEG placement 12/19/16. S/P transfusion . Await acceptance at [facility]. Objective Last Vital Signs Date Time Temp Pulse Resp B/P Pulse Ox O2 Delivery O2 Flow Rate FiO2 12/21/16 10:23 77 130/81 12/21/16 08:08 97.0 19 100 Room Air 12/21/16 07:57 2.0 28 Laboratory Tests Test 12/20/16 16:35 12/21/16 04:00 White Blood Count 15.6 K/UL (4.8-10.8) H 15.1 K/UL (4.8-10.8) H Red Blood Count 2.42 M/UL (4.20-5.40) L 3.10 M/UL (4.20-5.40) L Hemoglobin 6.6 G/DL (12.0-16.0) *L 8.9 G/DL (12.0-16.0) #L Hematocrit 19.8 % (37.0-47.0) L 26.2 % (37.0-47.0) #L Mean Corpuscular Volume 82 FL (80-99) 84 FL (80-99) Mean Corpuscular Hemoglobin 27.4 PG (27.0-31.0) 28.8 PG (27.0-31.0) Mean Corpuscular Hemoglobin Concent 33.4 G/DL (32.0-36.0) 34.1 G/DL (32.0-36.0) Red Cell Distribution Width 18.0 % (11.6-14.8) H 17.2 % (11.6-14.8) H Platelet Count 163 K/UL (150-450) 159 K/UL (150-450) Mean Platelet Volume 7.6 FL (6.5-10.1) 7.9 FL (6.5-10.1) Neutrophils (%) (Auto) % (45.0-75.0) % (45.0-75.0) Lymphocytes (%) (Auto) % (20.0-45.0) % (20.0-45.0) Monocytes (%) (Auto) % (1.0-10.0) % (1.0-10.0) Eosinophils (%) (Auto) % (0.0-3.0) % (0.0-3.0) Basophils (%) (Auto) % (0.0-2.0) % (0.0-2.0) Differential Total Cells Counted 100 Neutrophils % (Manual) 89 % (45-75) H Lymphocytes % (Manual) 7 % (20-45) L Monocytes % (Manual) 2 % (1-10) Eosinophils % (Manual) 0 % (0-3) Basophils % (Manual) 0 % (0-2) Band Neutrophils 2 % (0-8) Other Cell Type Pathologist comment Platelet Estimate Adequate Platelet Morphology Giant Platelets 1+ Target Cells 2+ Sodium Level 146 mEQ/L (135-145) H Potassium Level 3.3 mEQ/L (3.4-4.9) L Chloride Level 111 mEQ/L (98-107) H Carbon Dioxide Level 23 mEQ/L (20-30) Anion Gap 12 (5-15) Blood Urea Nitrogen 26 mg/dL (7-23) H Creatinine 0.8 mg/dL (0.5-0.9) Estimat Glomerular Filtration Rate mL/min (>60) Glucose Level 103 mg/dL (74-106) Uric Acid 5.9 mg/dL (3.0-7.5) Calcium Level 9.2 mg/dL (8.6-10.2) Phosphorus Level 1.8 mg/dL (2.5-4.8) L Magnesium Level 1.7 mg/dL (1.7-2.5) Total Bilirubin 0.3 mg/dL (0.0-1.2) Aspartate Amino Transf (AST/SGOT) 14 U/L (5-40) Alanine Aminotransferase (ALT/SGPT) 11 U/L (3-33) Alkaline Phosphatase 77 U/L (35-104) Total Creatine Kinase 7 U/L (26-140) L C-Reactive Protein, Quantitative 11.1 mg/dL (< 0.5) H Total Protein 4.7 g/dL (6.6-8.7) L Albumin 1.8 g/dL (3.5-5.2) L Globulin 2.9 g/dL Albumin/Globulin Ratio 0.6 (1.0-2.7) L Intake and Output 12/20/16 12/21/16 19:00 07:00 Intake Total 1215 ml 840 ml Output Total 400 ml 350 ml Balance 815 ml 490 ml Intake Free Water 300 ml 150 ml IV Total 255 ml Tube Feeding 660 ml 440 ml Blood Product 250 ml Output Urine Total 400 ml 350 ml Objective General Appearance: mild distress, lethargic, thin EENT: PERRL/EOMI, normal ENT inspection Neck: non-tender, normal alignment Cardiovascular: normal peripheral pulses, no gallop/murmur, no JVD, irregularly irregular Respiratory/Chest: chest wall non-tender, crackles/rales, rhonchi - bilaterally , expiratory wheezing Abdomen: normal bowel sounds, non tender, soft, no organomegaly, no mass Extremities: normal range of motion, non-tender Skin: normal pigmentation, warm/dry Assessment/Plan Problem List: (1) Dysphagia Assessment & Plan: S/P PEG placement 12/19/16-See GI note-Dr Miles. (2) Hypokalemia Assessment & Plan: See nephrology note. (3) Hypernatremia (4) UTI (urinary tract infection) Assessment & Plan: E. Coli. Continue ertapenem per ID. (5) Severe malnutrition (6) Renal failure Assessment & Plan: Followed by nephrology - Dr Leone- see note. (7) Sepsis (8) Sacral decubitus ulcer, stage IV Assessment & Plan: S/P Debridement 12/14/16. Continue ertapenem per ID (9) Hypertension (10) Coronary artery disease (11) Atrial fibrillation Assessment & Plan: See cardiology note. (12) History of DVT (deep vein thrombosis) (13) Anemia Assessment & Plan: S/P transfusion 1 unit PRBC on 12/20/16 (14) Diabetes mellitus Assessment & Plan: Hyperglycemia. Add novolog sliding scale. (15) Osteomyelitis of sacrum Assessment & Plan: Continue Invanz day #. See ID note. Status: not improved Assessment/Plan Transfer to [facility] when accepted. BRADLEY DAVIS Dec 21, 2016 12:24
[2016-12-21] MEDS: Morphine Sulfate 2mg/ml Inj IVP PRN ×3 (12:29→21:05)
[2016-12-21] MEDS: Ertapenem 1 GM in NS 55 ML IVPB SCH (13:17)
--- NOTE | 2016-12-21 14:25 | General Progress Note ---
Assessment/Plan Status: unchanged Status Narrative has diarrhea- Leukocytosis unchanged Assessment/Plan status: Acute renal failure- mainly prerenal improved HyperCalcemia- being treated Leukocytosis / sepsis, on antibiotics other conditions mentioned in PH: -History of anemia. -Hypertension. -Diabetes type 2. -History of coronary artery disease. -Renal failure. -Paroxysmal atrial fibrillation. -History of right lower extremity deep venous thrombosis. -Arthritis. -Alzheimer's dementia. -Pacemaker in situ. Plan: Has PEG Phos and K supplement as needed- Monitor renal parameters- per orders- Per GI and ID discussed with RN Subjective ROS Limited/Unobtainable: Yes Allergies: Coded Allergies: NO KNOWN ALLERGIES (Unverified Allergy, Unknown, 09/05/15) Objective Last 24 Hour Vital Signs Date Time Temp Pulse Resp B/P Pulse Ox O2 Delivery O2 Flow Rate FiO2 12/21/16 13:08 97.0 69 19 140/86 99 Nasal Cannula 3.0 12/21/16 12:20 97.0 69 18 140/85 99 Nasal Cannula 3.0 12/21/16 10:23 77 130/81 12/21/16 08:08 97.0 69 19 139/76 100 Room Air 12/21/16 07:57 Nasal Cannula 2.0 28 12/21/16 07:56 96 Nasal Cannula 2.0 28 12/21/16 07:56 63 18 Nasal Cannula 2.0 28 12/21/16 04:00 98.1 76 18 134/75 100 Nasal Cannula 3.0 12/21/16 00:00 98.2 72 18 123/71 99 Nasal Cannula 3.0 12/20/16 21:04 64 124/63 12/20/16 20:05 64 18 Nasal Cannula 2.0 28 12/20/16 20:05 96 Nasal Cannula 2.0 28 12/20/16 20:05 Nasal Cannula 2.0 28 12/20/16 20:00 97.5 70 16 124/63 99 Room Air 12/20/16 16:00 97.3 69 17 119/56 97 Intake and Output 12/20/16 12/21/16 19:00 07:00 Intake Total 1215 ml 840 ml Output Total 400 ml 350 ml Balance 815 ml 490 ml Intake Free Water 300 ml 150 ml IV Total 255 ml Tube Feeding 660 ml 440 ml Blood Product 250 ml Output Urine Total 400 ml 350 ml Laboratory Tests 12/20/16 16:35: White Blood Count 15.6H, Red Blood Count 2.42L, Hemoglobin 6.6*L, Hematocrit 19.8L, Mean Corpuscular Volume 82, Mean Corpuscular Hemoglobin 27.4, Mean Corpuscular Hemoglobin Concent 33.4, Red Cell Distribution Width 18.0H, Platelet Count 163, Mean Platelet Volume 7.6, Neutrophils (%) (Auto) , Lymphocytes (%) (Auto) , Monocytes (%) (Auto) , Eosinophils (%) (Auto) , Basophils (%) (Auto) , Differential Total Cells Counted 100, Neutrophils % ( Manual) 89H, Lymphocytes % (Manual) 7L, Monocytes % (Manual) 2, Eosinophils % ( Manual) 0, Basophils % (Manual) 0, Band Neutrophils 2, Other Cell Type Pathologist comment, Platelet Estimate Adequate, Platelet Morphology , Giant Platelets 1+, Target Cells 2+ 12/21/16 04:00: White Blood Count 15.1H, Red Blood Count 3.10L, Hemoglobin 8.9#L, Hematocrit 26.2#L, Mean Corpuscular Volume 84, Mean Corpuscular Hemoglobin 28.8, Mean Corpuscular Hemoglobin Concent 34.1, Red Cell Distribution Width 17.2H, Platelet Count 159, Mean Platelet Volume 7.9, Neutrophils (%) (Auto) , Lymphocytes (%) (Auto) , Monocytes (%) (Auto) , Eosinophils (%) (Auto) , Basophils (%) (Auto) , Sodium Level 146H, Potassium Level 3.3L, Chloride Level 111H, Carbon Dioxide Level 23, Anion Gap 12, Blood Urea Nitrogen 26H, Creatinine 0.8, Estimat Glomerular Filtration Rate , Glucose Level 103, Uric Acid 5.9, Calcium Level 9.2, Phosphorus Level 1.8L, Magnesium Level 1.7, Total Bilirubin 0.3, Aspartate Amino Transf (AST/SGOT) 14, Alanine Aminotransferase ( ALT/SGPT) 11, Alkaline Phosphatase 77, Total Creatine Kinase 7L, C-Reactive Protein, Quantitative 11.1H, Total Protein 4.7L, Albumin 1.8L, Globulin 2.9, Albumin/Globulin Ratio 0.6L Height (Feet): 5 Height (Inches): 3.00 Weight (Pounds): 140 General Appearance: no apparent distress, lethargic Objective other PE not changed EARNEST CADET Dec 21, 2016 14:25
--- NOTE | 2016-12-21 16:53 | Infectious Diseases Prog Note ---
Assessment/Plan Assessment/Plan A: The patient is an 86-year-old female Leukocytosis post op, PEG Sepsis, SP wound infection , osteomyelitis sacrum Wnd Cx : Ecoli , Citrobacter, StrpV SP Debridement Probable UTI EColi +ve Blood cx : CoNS SP Rx ALOC SP PEG HTN DM PVD CAD Paroxysmal atrial fibrillation. History of right lower extremity DVT. Anemia PLAN: continue the patient on Invanz d# 3 / 35 ( SP IV vancomycin. and Zosyn ---> Rocephin d# 7 ) Monitor CBC. Monitor BMP. C Diff if Diarrhea persist ( Asked RN to stop stool softener ) Subjective Constitutional: Denies: anorexia, chills, drenching sweats, fatigue, fever, no symptoms, other Allergies: Coded Allergies: NO KNOWN ALLERGIES (Unverified Allergy, Unknown, 09/05/15) Objective Vital Signs Last 24 Hour Vital Signs Date Time Temp Pulse Resp B/P Pulse Ox O2 Delivery O2 Flow Rate FiO2 12/21/16 13:08 97.0 69 19 140/86 99 Nasal Cannula 3.0 12/21/16 12:20 97.0 69 18 140/85 99 Nasal Cannula 3.0 12/21/16 10:23 77 130/81 12/21/16 08:08 97.0 69 19 139/76 100 Room Air 12/21/16 07:57 Nasal Cannula 2.0 28 12/21/16 07:56 96 Nasal Cannula 2.0 28 12/21/16 07:56 63 18 Nasal Cannula 2.0 28 12/21/16 04:00 98.1 76 18 134/75 100 Nasal Cannula 3.0 12/21/16 00:00 98.2 72 18 123/71 99 Nasal Cannula 3.0 12/20/16 21:04 64 124/63 12/20/16 20:05 64 18 Nasal Cannula 2.0 28 12/20/16 20:05 96 Nasal Cannula 2.0 28 12/20/16 20:05 Nasal Cannula 2.0 28 12/20/16 20:00 97.5 70 16 124/63 99 Room Air Height (Feet): 5 Height (Inches): 3.00 Weight (Pounds): 140 HEENT: anicteric Respiratory/Chest: no respiratory distress Cardiovascular: no gallop/murmur Abdomen: non distended Laboratory Tests Test 12/21/16 04:00 White Blood Count 15.1 K/UL (4.8-10.8) H Red Blood Count 3.10 M/UL (4.20-5.40) L Hemoglobin 8.9 G/DL (12.0-16.0) #L Hematocrit 26.2 % (37.0-47.0) #L Mean Corpuscular Volume 84 FL (80-99) Mean Corpuscular Hemoglobin 28.8 PG (27.0-31.0) Mean Corpuscular Hemoglobin Concent 34.1 G/DL (32.0-36.0) Red Cell Distribution Width 17.2 % (11.6-14.8) H Platelet Count 159 K/UL (150-450) Mean Platelet Volume 7.9 FL (6.5-10.1) Neutrophils (%) (Auto) % (45.0-75.0) Lymphocytes (%) (Auto) % (20.0-45.0) Monocytes (%) (Auto) % (1.0-10.0) Eosinophils (%) (Auto) % (0.0-3.0) Basophils (%) (Auto) % (0.0-2.0) Sodium Level 146 mEQ/L (135-145) H Potassium Level 3.3 mEQ/L (3.4-4.9) L Chloride Level 111 mEQ/L (98-107) H Carbon Dioxide Level 23 mEQ/L (20-30) Anion Gap 12 (5-15) Blood Urea Nitrogen 26 mg/dL (7-23) H Creatinine 0.8 mg/dL (0.5-0.9) Estimat Glomerular Filtration Rate mL/min (>60) Glucose Level 103 mg/dL (74-106) Uric Acid 5.9 mg/dL (3.0-7.5) Calcium Level 9.2 mg/dL (8.6-10.2) Phosphorus Level 1.8 mg/dL (2.5-4.8) L Magnesium Level 1.7 mg/dL (1.7-2.5) Total Bilirubin 0.3 mg/dL (0.0-1.2) Aspartate Amino Transf (AST/SGOT) 14 U/L (5-40) Alanine Aminotransferase (ALT/SGPT) 11 U/L (3-33) Alkaline Phosphatase 77 U/L (35-104) Total Creatine Kinase 7 U/L (26-140) L C-Reactive Protein, Quantitative 11.1 mg/dL (< 0.5) H Total Protein 4.7 g/dL (6.6-8.7) L Albumin 1.8 g/dL (3.5-5.2) L Globulin 2.9 g/dL Albumin/Globulin Ratio 0.6 (1.0-2.7) L Current Medications Medications (Trade) Dose Ordered Sig/David Route PRN Reason Start Time Stop Time Status Last Admin Dose Admin Acetaminophen (Tylenol) 650 mg Q4H PRN ORAL fever 12/15/16 09:45 01/14/17 09:44 Calcitonin [place] (Miacalcin) 1 sprays DAILY NASAL 12/15/16 11:00 01/14/17 10:59 12/21/16 10:23 Dextrose (Dextrose 50%) STAT PRN IV Hypoglycemia 12/15/16 11:00 01/14/17 10:59 12/18/16 21:19 Ertapenem/Sodium Chloride (INVanz/Sodium Chloride) 55 ml @ 110 mls/hr Q24H IVPB 12/19/16 12:00 12/24/16 11:59 12/21/16 13:17 Heparin Sodium (Porcine) (Heparin 5000 units/ml) 5,000 units EVERY 12 HOURS SUBQ 12/15/16 11:00 01/14/17 10:59 12/20/16 11:01 Influenza Virus Vaccine (Flu Vaccine) 0.5 ml ONCE ONCE IM 12/21/16 11:00 12/21/16 11:01 UNV Insulin Aspart (NovoLOG) BEFORE MEALS AND HS SUBQ 12/15/16 11:30 01/14/17 11:29 12/20/16 21:05 Metoprolol Tartrate (Lopressor) 25 mg Q12HR PEG 12/19/16 21:00 01/18/17 20:59 12/21/16 10:23 Morphine Sulfate (Morphine Sulfate) 2 mg Q4H PRN IVP Moderate Pain (Pain Scale 4-6) 12/15/16 09:45 12/22/16 09:44 12/21/16 12:29 Nitroglycerin (Ntg) 0.4 mg Q5M PRN SL Prn Chest Pain 12/15/16 09:45 01/14/17 09:44 Ondansetron HCl (Zofran) 4 mg Q6H PRN IVP Nausea & Vomiting 12/15/16 11:45 01/14/17 11:44 Polyethylene Glycol (Miralax) 17 gm DAILYPRN PRN ORAL Constipation 12/15/16 17:45 01/14/17 17:44 Potassium Phosphate/Sodium Chloride (Potassium Phosphate/Sodium Chloride) 285 ml @ 47.5 mls/hr ONCE ONCE IV 12/21/16 12:00 12/21/16 17:59 12/21/16 15:41 Ranitidine HCl 150 mg 150 mg TWICE A DAY PEG 12/20/16 18:00 01/19/17 17:59 12/21/16 10:23 Sodium Hypochlorite (Dakin's Half Strength) 1 applic DAILY TOPIC 12/15/16 11:00 01/14/17 10:59 12/21/16 10:23 Temazepam 15 mg 15 mg HSPRN PRN ORAL Insomnia 12/15/16 17:45 12/22/16 17:44 RADHA BAILON M.D. Dec 21, 2016 16:53
--- NOTE | 2016-12-21 17:40 | Cardiac Electrophysiology PN ---
Assessment/Plan Assessment/Plan 1. Status post Biotronik single chamber pacemaker with NL function.. 2. Chronic atrial fibrillation. Continue metoprolol 25 mg b.i.d. and off anticoagulation for severe bleeding. 3. Hypertension. On metoprolol 25 mg b.i.d. 4. Sacral decubitus. Status post excision and debridement of sacral decubitus by Dr. Steinberg. 5. History of anemia. 6. Chronic kidney disease. The current creatinine is normal, but BUN is 37. 7. Diastolic dysfunction. BNP of 8000. 8. Dysphagia.S/P PEG 12/19/16 DW RN at bedside. Subjective Subjective Comfortable in NAD. No events overnight. RN at bedside. Objective Last 24 Hour Vital Signs Date Time Temp Pulse Resp B/P Pulse Ox O2 Delivery O2 Flow Rate FiO2 12/21/16 16:00 98.2 61 20 114/58 100 Nasal Cannula 2.5 12/21/16 13:08 97.0 69 19 140/86 99 Nasal Cannula 3.0 12/21/16 12:20 97.0 69 18 140/85 99 Nasal Cannula 3.0 12/21/16 10:23 77 130/81 12/21/16 08:08 97.0 69 19 139/76 100 Room Air 12/21/16 07:57 Nasal Cannula 2.0 28 12/21/16 07:56 96 Nasal Cannula 2.0 28 12/21/16 07:56 63 18 Nasal Cannula 2.0 28 12/21/16 04:00 98.1 76 18 134/75 100 Nasal Cannula 3.0 12/21/16 00:00 98.2 72 18 123/71 99 Nasal Cannula 3.0 12/20/16 21:04 64 124/63 12/20/16 20:05 64 18 Nasal Cannula 2.0 28 12/20/16 20:05 96 Nasal Cannula 2.0 28 12/20/16 20:05 Nasal Cannula 2.0 28 12/20/16 20:00 97.5 70 16 124/63 99 Room Air Intake and Output 12/20/16 12/21/16 19:00 07:00 Intake Total 1215 ml 840 ml Output Total 400 ml 350 ml Balance 815 ml 490 ml Intake Free Water 300 ml 150 ml IV Total 255 ml Tube Feeding 660 ml 440 ml Blood Product 250 ml Output Urine Total 400 ml 350 ml Laboratory Tests Test 12/21/16 04:00 White Blood Count 15.1 K/UL (4.8-10.8) H Red Blood Count 3.10 M/UL (4.20-5.40) L Hemoglobin 8.9 G/DL (12.0-16.0) #L Hematocrit 26.2 % (37.0-47.0) #L Mean Corpuscular Volume 84 FL (80-99) Mean Corpuscular Hemoglobin 28.8 PG (27.0-31.0) Mean Corpuscular Hemoglobin Concent 34.1 G/DL (32.0-36.0) Red Cell Distribution Width 17.2 % (11.6-14.8) H Platelet Count 159 K/UL (150-450) Mean Platelet Volume 7.9 FL (6.5-10.1) Neutrophils (%) (Auto) % (45.0-75.0) Lymphocytes (%) (Auto) % (20.0-45.0) Monocytes (%) (Auto) % (1.0-10.0) Eosinophils (%) (Auto) % (0.0-3.0) Basophils (%) (Auto) % (0.0-2.0) Sodium Level 146 mEQ/L (135-145) H Potassium Level 3.3 mEQ/L (3.4-4.9) L Chloride Level 111 mEQ/L (98-107) H Carbon Dioxide Level 23 mEQ/L (20-30) Anion Gap 12 (5-15) Blood Urea Nitrogen 26 mg/dL (7-23) H Creatinine 0.8 mg/dL (0.5-0.9) Estimat Glomerular Filtration Rate mL/min (>60) Glucose Level 103 mg/dL (74-106) Uric Acid 5.9 mg/dL (3.0-7.5) Calcium Level 9.2 mg/dL (8.6-10.2) Phosphorus Level 1.8 mg/dL (2.5-4.8) L Magnesium Level 1.7 mg/dL (1.7-2.5) Total Bilirubin 0.3 mg/dL (0.0-1.2) Aspartate Amino Transf (AST/SGOT) 14 U/L (5-40) Alanine Aminotransferase (ALT/SGPT) 11 U/L (3-33) Alkaline Phosphatase 77 U/L (35-104) Total Creatine Kinase 7 U/L (26-140) L C-Reactive Protein, Quantitative 11.1 mg/dL (< 0.5) H Total Protein 4.7 g/dL (6.6-8.7) L Albumin 1.8 g/dL (3.5-5.2) L Globulin 2.9 g/dL Albumin/Globulin Ratio 0.6 (1.0-2.7) L Objective HEAD AND NECK: Shows no JVD or carotid bruits. LUNGS: Clear. CARDIOVASCULAR: Regular S1 and S2 with no gallop or murmur. The pacemaker is at left subclavian. ABDOMEN: Soft.PEG in place EXTREMITIES: Large sacral decubitus status post surgery.No edema STAR ROA Dec 21, 2016 17:40
--- NOTE | 2016-12-21 20:48 | Pulmonology Progress Note ---
Assessment/Plan Problems: (1) Sepsis (2) Acute encephalopathy (3) Renal failure (4) UTI (urinary tract infection) (5) Decubitus ulcer of sacral area (6) Anemia (7) Alzheimer's dementia Assessment/Plan s/p debridement NG tube insertion was not successful continue antibiotics check cultures check electrolytes iv fluids check Ca daily wbc decreasing dvt prophylaxis Subjective ROS Limited/Unobtainable: Yes Constitutional: Reports: anorexia, fatigue Neurologic: Reports: confusion, weakness Skin: Reports: rash, ulcer Allergies: Coded Allergies: NO KNOWN ALLERGIES (Unverified Allergy, Unknown, 09/05/15) Objective Last 24 Hour Vital Signs Date Time Temp Pulse Resp B/P Pulse Ox O2 Delivery O2 Flow Rate FiO2 12/21/16 17:33 98.2 12/21/16 16:00 98.2 61 20 114/58 100 Nasal Cannula 2.5 12/21/16 13:08 97.0 69 19 140/86 99 Nasal Cannula 3.0 12/21/16 12:20 97.0 69 18 140/85 99 Nasal Cannula 3.0 12/21/16 10:23 77 130/81 12/21/16 08:08 97.0 69 19 139/76 100 Room Air 12/21/16 07:57 Nasal Cannula 2.0 28 12/21/16 07:56 96 Nasal Cannula 2.0 28 12/21/16 07:56 63 18 Nasal Cannula 2.0 28 12/21/16 04:00 98.1 76 18 134/75 100 Nasal Cannula 3.0 12/21/16 00:00 98.2 72 18 123/71 99 Nasal Cannula 3.0 12/20/16 21:04 64 124/63 Intake and Output 12/20/16 12/21/16 19:00 07:00 Intake Total 1215 ml 840 ml Output Total 400 ml 350 ml Balance 815 ml 490 ml Intake Free Water 300 ml 150 ml IV Total 255 ml Tube Feeding 660 ml 440 ml Blood Product 250 ml Output Urine Total 400 ml 350 ml General Appearance: no acute distress HEENT: normocephalic, atraumatic, PERRL Respiratory/Chest: chest wall non-tender, lungs clear, normal breath sounds Breasts: no masses Cardiovascular: normal peripheral pulses, normal rate, regular rhythm Abdomen: normal bowel sounds, soft, non tender, no organomegaly Genitourinary: normal external genitalia Extremities: no cyanosis Skin: rash, lesions, ulcers Neurologic/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: 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 grossly normal, responsive, disoriented Laboratory Tests 12/21/16 04:00: White Blood Count 15.1H, Red Blood Count 3.10L, Hemoglobin 8.9#L, Hematocrit 26.2#L, Mean Corpuscular Volume 84, Mean Corpuscular Hemoglobin 28.8, Mean Corpuscular Hemoglobin Concent 34.1, Red Cell Distribution Width 17.2H, Platelet Count 159, Mean Platelet Volume 7.9, Neutrophils (%) (Auto) , Lymphocytes (%) (Auto) , Monocytes (%) (Auto) , Eosinophils (%) (Auto) , Basophils (%) (Auto) , Sodium Level 146H, Potassium Level 3.3L, Chloride Level 111H, Carbon Dioxide Level 23, Anion Gap 12, Blood Urea Nitrogen 26H, Creatinine 0.8, Estimat Glomerular Filtration Rate , Glucose Level 103, Uric Acid 5.9, Calcium Level 9.2, Phosphorus Level 1.8L, Magnesium Level 1.7, Total Bilirubin 0.3, Aspartate Amino Transf (AST/SGOT) 14, Alanine Aminotransferase ( ALT/SGPT) 11, Alkaline Phosphatase 77, Total Creatine Kinase 7L, C-Reactive Protein, Quantitative 11.1H, Total Protein 4.7L, Albumin 1.8L, Globulin 2.9, Albumin/Globulin Ratio 0.6L Current Medications Medications (Trade) Dose Ordered Sig/David Route PRN Reason Start Time Stop Time Status Last Admin Dose Admin Acetaminophen (Tylenol) 650 mg Q4H PRN ORAL fever 12/15/16 09:45 01/14/17 09:44 Calcitonin [place] (Miacalcin) 1 sprays DAILY NASAL 12/15/16 11:00 01/14/17 10:59 12/21/16 10:23 Dextrose (Dextrose 50%) STAT PRN IV Hypoglycemia 12/15/16 11:00 01/14/17 10:59 12/18/16 21:19 Ertapenem/Sodium Chloride (INVanz/Sodium Chloride) 55 ml @ 110 mls/hr Q24H IVPB 12/19/16 12:00 12/24/16 11:59 12/21/16 13:17 Heparin Sodium (Porcine) (Heparin 5000 units/ml) 5,000 units EVERY 12 HOURS SUBQ 12/15/16 11:00 01/14/17 10:59 12/20/16 11:01 Influenza Virus Vaccine (Flu Vaccine) 0.5 ml ONCE ONCE IM 12/21/16 11:00 12/21/16 11:01 UNV Insulin Aspart (NovoLOG) BEFORE MEALS AND HS SUBQ 12/15/16 11:30 01/14/17 11:29 12/20/16 21:05 Metoprolol Tartrate (Lopressor) 25 mg Q12HR PEG 12/19/16 21:00 01/18/17 20:59 12/21/16 10:23 Morphine Sulfate (Morphine Sulfate) 2 mg Q4H PRN IVP Moderate Pain (Pain Scale 4-6) 12/15/16 09:45 12/22/16 09:44 12/21/16 17:03 Nitroglycerin (Ntg) 0.4 mg Q5M PRN SL Prn Chest Pain 12/15/16 09:45 01/14/17 09:44 Ondansetron HCl 4 mg 4 mg Q6H PRN IVP Nausea & Vomiting 12/15/16 11:45 01/14/17 11:44 Sodium Hypochlorite (Dakin's Half Strength) 1 applic DAILY TOPIC 12/15/16 11:00 01/14/17 10:59 12/21/16 10:23 EVENS CASTELLON Dec 21, 2016 20:48
[2016-12-21] MEDS ORDERED: Influenza Virus Vaccine 0.5ml IM ONE (22:30)
[2016-12-22] VITALS: BP 131/71
[2016-12-22] MEDS: Morphine Sulfate 2mg/ml Inj IVP PRN ×4 (01:12→23:58)
[2016-12-22 04:00] VITALS: BP 117/72
[2016-12-22] MEDS: NovoLOG Insulin Flexpen SUBQ SCH ×4 (06:01→20:55)
[2016-12-22 07:39] LABS: MEAN CORPUSCULAR HEMOGLOBIN 28.2 PG (27.0-31.0); MEAN CORPUSCULAR HGB CONC 33.5 G/DL (32.0-36.0); MEAN CORPUSCULAR VOLUME 84 FL (80-99); MEAN PLATELET VOLUME 7.2 FL (6.5-10.1); PLATELET COUNT 182 K/UL (150-450); RED BLOOD COUNT 3.14 M/UL (4.20-5.40); RED CELL DISTRIBUTION WIDTH 17.8 % (11.6-14.8); WHITE BLOOD COUNT 18.9 K/UL (4.8-10.8)
[2016-12-22 07:59] LABS: ANION GAP 15 (5-15); CALCIUM 8.6 mg/dL (8.6-10.2); CARBON DIOXIDE 23 mEQ/L (20-30); CHLORIDE 111 mEQ/L (98-107); CREATININE 0.7 mg/dL (0.5-0.9); HEMOLYSIS 1; POTASSIUM 3.3 mEQ/L (3.4-4.9); SODIUM 149 mEQ/L (135-145)
[2016-12-22 08:00] VITALS: BP 104/55
[2016-12-22] MEDS: Metoprolol 25mg tab PEG SCH ×2 (09:00→20:53)
[2016-12-22] MEDS: Heparin 5000 units/ml inj SUBQ SCH ×2 (09:43→20:56)
[2016-12-22 10:33] LABS: ANISOCYTOSIS 1+; BAND NEUTROPHILS % (MANUAL) 7 % (0-8); BASOPHILS % (MANUAL) 0 % (0-2); EOSINOPHILS % (MANUAL) 0 % (0-3); HYPOCHROMASIA 1+; LYMPHOCYTES % (MANUAL) 11 % (20-45); NEUTROPHILS % (MANUAL) 82 % (45-75); PLATELET ESTIMATE ADEQUATE; PLATELET MORPHOLOGY NORMAL; TARGET CELLS OCCASIONAL; TOTAL CELLS COUNTED 100
[2016-12-22] MEDS ORDERED: KCl 10% 40mEq/30ml liquid NG ONE (11:30)
[2016-12-22 12:00] VITALS: BP 106/55
--- NOTE | 2016-12-22 12:14 | General Progress Note ---
Assessment/Plan Status: unchanged Assessment/Plan status: Acute renal failure- mainly prerenal improved HyperCalcemia- being treated Leukocytosis / sepsis, on antibiotics other conditions mentioned in PH: -History of anemia. -Hypertension. -Diabetes type 2. -History of coronary artery disease. -Renal failure. -Paroxysmal atrial fibrillation. -History of right lower extremity deep venous thrombosis. -Arthritis. -Alzheimer's dementia. -Pacemaker in situ. Plan: Has PEG Phos and K supplement as needed- Monitor renal parameters- per orders- Per GI and ID discussed with RN Subjective ROS Limited/Unobtainable: No Constitutional: Reports: malaise, weakness Allergies: Coded Allergies: NO KNOWN ALLERGIES (Unverified Allergy, Unknown, 09/05/15) Objective Last 24 Hour Vital Signs Date Time Temp Pulse Resp B/P Pulse Ox O2 Delivery O2 Flow Rate FiO2 12/22/16 09:00 63 104/55 12/22/16 08:00 97.7 63 18 104/55 100 Nasal Cannula 3.0 12/22/16 04:00 98.1 76 18 117/72 98 Nasal Cannula 2.0 12/22/16 00:00 97.5 69 18 131/71 97 Nasal Cannula 3.0 12/21/16 20:55 61 114/58 12/21/16 20:00 97.7 60 20 117/62 98 Room Air 12/21/16 17:33 98.2 12/21/16 16:00 98.2 61 20 114/58 100 Nasal Cannula 2.5 12/21/16 13:08 97.0 69 19 140/86 99 Nasal Cannula 3.0 12/21/16 12:20 97.0 69 18 140/85 99 Nasal Cannula 3.0 Intake and Output 12/21/16 12/22/16 19:00 07:00 Intake Total 615 ml 530 ml Output Total 200 ml 330 ml Balance 415 ml 200 ml Intake Free Water 150 ml 300 ml Tube Feeding 465 ml 230 ml Output Urine Total 200 ml 300 ml Stool Total 30 ml # Bowel Movements 2 2 Laboratory Tests 12/22/16 04:00: White Blood Count 18.9H, Red Blood Count 3.14L, Hemoglobin 8.9L, Hematocrit 26.4L, Mean Corpuscular Volume 84, Mean Corpuscular Hemoglobin 28.2, Mean Corpuscular Hemoglobin Concent 33.5, Red Cell Distribution Width 17.8H, Platelet Count 182, Mean Platelet Volume 7.2, Neutrophils (%) (Auto) , Lymphocytes (%) (Auto) , Monocytes (%) (Auto) , Eosinophils (%) (Auto) , Basophils (%) (Auto) , Differential Total Cells Counted 100, Neutrophils % ( Manual) 82H, Lymphocytes % (Manual) 11L, Monocytes % (Manual) 0L, Eosinophils % (Manual) 0, Basophils % (Manual) 0, Band Neutrophils 7, Platelet Estimate Adequate, Platelet Morphology Normal, Hypochromasia 1+, Anisocytosis 1+, Target Cells Occasional, Sodium Level 149H, Potassium Level 3.3L, Chloride Level 111H, Carbon Dioxide Level 23, Anion Gap 15, Blood Urea Nitrogen 31H, Creatinine 0.7, Estimat Glomerular Filtration Rate , Glucose Level 118H, Calcium Level 8.6 Height (Feet): 5 Height (Inches): 3.00 Weight (Pounds): 140 General Appearance: no apparent distress, lethargic Cardiovascular: regular rhythm Respiratory/Chest: decreased breath sounds Abdomen: soft Objective other PE not changed EARNEST CADET Dec 22, 2016 12:14
[2016-12-22 12:43] LABS: MAGNESIUM 1.6 mg/dL (1.7-2.5)
[2016-12-22] MEDS: Ertapenem 1 GM in NS 55 ML IVPB SCH (13:33)
--- NOTE | 2016-12-22 14:25 | GI Progress Note ---
Assessment/Plan Problems: (1) Diabetes mellitus ICD Codes: E11.9 - Type 2 diabetes mellitus without complications SNOMED: 69379535 (2) Dysphagia ICD Codes: R13.10 - Dysphagia, unspecified SNOMED: 66771631, 515791046 (3) Encounter for PEG (percutaneous endoscopic gastrostomy) ICD Codes: Z43.1 - Encounter for attention to gastrostomy SNOMED: 775887688, 960062850 (4) Severe malnutrition ICD Codes: E43 - Unspecified severe protein-calorie malnutrition SNOMED: 19350619 (5) Hypoalbuminemia ICD Codes: E88.09 - Other disorders of plasma-protein metabolism, not elsewhere classified SNOMED: 872851457 (6) Leukocytosis ICD Codes: D72.829 - Elevated white blood cell count, unspecified SNOMED: 798258318, 255685822 (7) Iron deficiency ICD Codes: E61.1 - Iron deficiency SNOMED: 68991848 Status: unchanged Status Narrative Discussed with Dr. Miles. Assessment/Plan SUMMARY OF FINDINGS: 1. Severe atrophic gastritis. 2. Two gastric polyps removed with the snare polypectomy technique. 3. Status post successful percutaneous endoscopic gastrostomy placement. gastric biopsy >> no meta/dysplasia RECOMMENDATIONS: 1. Abdominal binder. 2. Elevate the head of the bed at all times. 3. G-tube flush. 4. G-tube care. 5. GTFs 6. The patient is currently on ceftriaxone. abx monitor H&H >> transfused prn PPI daily given history of severe gastritis iron panel >> unremarkable bowel regime fu labs Subjective Subjective limited Objective Last 24 Hour Vital Signs Date Time Temp Pulse Resp B/P Pulse Ox O2 Delivery O2 Flow Rate FiO2 12/22/16 12:00 97.7 76 18 106/55 98 Nasal Cannula 3.0 12/22/16 09:00 63 104/55 12/22/16 08:00 97.7 63 18 104/55 100 Nasal Cannula 3.0 12/22/16 04:00 98.1 76 18 117/72 98 Nasal Cannula 2.0 12/22/16 00:00 97.5 69 18 131/71 97 Nasal Cannula 3.0 12/21/16 20:55 61 114/58 12/21/16 20:00 97.7 60 20 117/62 98 Room Air 12/21/16 17:33 98.2 3/8/17 16:00 98.2 61 20 114/58 100 Nasal Cannula 2.5 Intake and Output 12/21/16 12/22/16 19:00 07:00 Intake Total 615 ml 530 ml Output Total 200 ml 330 ml Balance 415 ml 200 ml Intake Free Water 150 ml 300 ml Tube Feeding 465 ml 230 ml Output Urine Total 200 ml 300 ml Stool Total 30 ml # Bowel Movements 2 2 Laboratory Tests Test 12/22/16 04:00 White Blood Count 18.9 K/UL (4.8-10.8) H Red Blood Count 3.14 M/UL (4.20-5.40) L Hemoglobin 8.9 G/DL (12.0-16.0) L Hematocrit 26.4 % (37.0-47.0) L Mean Corpuscular Volume 84 FL (80-99) Mean Corpuscular Hemoglobin 28.2 PG (27.0-31.0) Mean Corpuscular Hemoglobin Concent 33.5 G/DL (32.0-36.0) Red Cell Distribution Width 17.8 % (11.6-14.8) H Platelet Count 182 K/UL (150-450) Mean Platelet Volume 7.2 FL (6.5-10.1) Neutrophils (%) (Auto) % (45.0-75.0) Lymphocytes (%) (Auto) % (20.0-45.0) Monocytes (%) (Auto) % (1.0-10.0) Eosinophils (%) (Auto) % (0.0-3.0) Basophils (%) (Auto) % (0.0-2.0) Differential Total Cells Counted 100 Neutrophils % (Manual) 82 % (45-75) H Lymphocytes % (Manual) 11 % (20-45) L Monocytes % (Manual) 0 % (1-10) L Eosinophils % (Manual) 0 % (0-3) Basophils % (Manual) 0 % (0-2) Band Neutrophils 7 % (0-8) Platelet Estimate Adequate Platelet Morphology Normal Hypochromasia 1+ Anisocytosis 1+ Target Cells Occasional Sodium Level 149 mEQ/L (135-145) H Potassium Level 3.3 mEQ/L (3.4-4.9) L Chloride Level 111 mEQ/L (98-107) H Carbon Dioxide Level 23 mEQ/L (20-30) Anion Gap 15 (5-15) Blood Urea Nitrogen 31 mg/dL (7-23) H Creatinine 0.7 mg/dL (0.5-0.9) Estimat Glomerular Filtration Rate mL/min (>60) Glucose Level 118 mg/dL (74-106) H Calcium Level 8.6 mg/dL (8.6-10.2) Phosphorus Level 3.0 mg/dL (2.5-4.8) Magnesium Level 1.6 mg/dL (1.7-2.5) L Height (Feet): 5 Height (Inches): 3.00 Weight (Pounds): 140 General Appearance: no apparent distress, thin Cardiovascular: normal rate Respiratory/Chest: other - 2LNC Abdominal Exam: GT site - c/d/i Objective DATE OF PROCEDURE: 12/19/2016 SURGEON: Ruben Miles M.D. PROCEDURE: Upper endoscopy with snare polypectomy biopsy and G-tube placement. SUMMARY OF FINDINGS: 1. Severe atrophic gastritis. 2. Two gastric polyps removed with the snare polypectomy technique. 3. Status post successful percutaneous endoscopic gastrostomy placement. RECOMMENDATIONS: 1. Abdominal binder. 2. Elevate the head of the bed at all times. 3. G-tube flush. 4. G-tube care. 5. Start tube feeding later today. 6. The patient is currently on ceftriaxone. DATE OF PROCEDURE: 10/23/2015 SURGEON: Ruben Miles M.D. PROCEDURE: Upper endoscopy with biopsy and colonoscopy with biopsy and polypectomy. INDICATION: Anemia, screening colonoscopy evaluation, abdominal pain, and GERD. SUMMARY OF FINDINGS: 1. Severe gastritis, status post biopsy. 2. Duodenal polyp, status post biopsy. 3. Inflammatory looking polyp in the antrum of the stomach, status post biopsy. 4. Paraesophageal hernia. 5. Two colonic polyp removed, see above for details. 6. Diverticulosis. 7. Internal hemorrhoids. Lyndsay Torres N.P. Dec 22, 2016 14:25
[2016-12-22] MEDS: Dakin's 0.25% (Half Strength) 16oz TOPIC SCH (15:46)
[2016-12-22 16:00] VITALS: BP 107/53
--- NOTE | 2016-12-22 17:19 | Cardiac Electrophysiology PN ---
Assessment/Plan Assessment/Plan 1. Status post Biotronik single chamber pacemaker with NL function.. 2. Chronic atrial fibrillation with stable rate on metoprolol 25 mg b.i.d..Off anticoagulation for severe bleeding. 3. Hypertension. On metoprolol 25 mg b.i.d. 4. Sacral decubitus. Status post excision and debridement of sacral decubitus by Dr. Steinberg.On IV ABx. 5. History of anemia. 6. Chronic kidney disease. The current creatinine is normal, but BUN is 37. 7. Diastolic dysfunction. BNP of 8000. 8. Dysphagia.S/P PEG 12/19/16 DW RN at bedside. Subjective Subjective Comfortable. No events overnight. On IV abx. Objective Last 24 Hour Vital Signs Date Time Temp Pulse Resp B/P Pulse Ox O2 Delivery O2 Flow Rate FiO2 12/22/16 16:00 97.9 67 20 107/53 99 Nasal Cannula 2.5 12/22/16 12:00 97.7 76 18 106/55 98 Nasal Cannula 3.0 12/22/16 09:00 63 104/55 12/22/16 08:00 97.7 63 18 104/55 100 Nasal Cannula 3.0 12/22/16 04:00 98.1 76 18 117/72 98 Nasal Cannula 2.0 12/22/16 00:00 97.5 69 18 131/71 97 Nasal Cannula 3.0 12/21/16 20:55 61 114/58 12/21/16 20:00 97.7 60 20 117/62 98 Room Air 12/21/16 17:33 98.2 Intake and Output 12/21/16 12/22/16 19:00 07:00 Intake Total 615 ml 530 ml Output Total 200 ml 330 ml Balance 415 ml 200 ml Intake Free Water 150 ml 300 ml Tube Feeding 465 ml 230 ml Output Urine Total 200 ml 300 ml Stool Total 30 ml # Bowel Movements 2 2 Laboratory Tests Test 12/22/16 04:00 White Blood Count 18.9 K/UL (4.8-10.8) H Red Blood Count 3.14 M/UL (4.20-5.40) L Hemoglobin 8.9 G/DL (12.0-16.0) L Hematocrit 26.4 % (37.0-47.0) L Mean Corpuscular Volume 84 FL (80-99) Mean Corpuscular Hemoglobin 28.2 PG (27.0-31.0) Mean Corpuscular Hemoglobin Concent 33.5 G/DL (32.0-36.0) Red Cell Distribution Width 17.8 % (11.6-14.8) H Platelet Count 182 K/UL (150-450) Mean Platelet Volume 7.2 FL (6.5-10.1) Neutrophils (%) (Auto) % (45.0-75.0) Lymphocytes (%) (Auto) % (20.0-45.0) Monocytes (%) (Auto) % (1.0-10.0) Eosinophils (%) (Auto) % (0.0-3.0) Basophils (%) (Auto) % (0.0-2.0) Differential Total Cells Counted 100 Neutrophils % (Manual) 82 % (45-75) H Lymphocytes % (Manual) 11 % (20-45) L Monocytes % (Manual) 0 % (1-10) L Eosinophils % (Manual) 0 % (0-3) Basophils % (Manual) 0 % (0-2) Band Neutrophils 7 % (0-8) Platelet Estimate Adequate Platelet Morphology Normal Hypochromasia 1+ Anisocytosis 1+ Target Cells Occasional Sodium Level 149 mEQ/L (135-145) H Potassium Level 3.3 mEQ/L (3.4-4.9) L Chloride Level 111 mEQ/L (98-107) H Carbon Dioxide Level 23 mEQ/L (20-30) Anion Gap 15 (5-15) Blood Urea Nitrogen 31 mg/dL (7-23) H Creatinine 0.7 mg/dL (0.5-0.9) Estimat Glomerular Filtration Rate mL/min (>60) Glucose Level 118 mg/dL (74-106) H Calcium Level 8.6 mg/dL (8.6-10.2) Phosphorus Level 3.0 mg/dL (2.5-4.8) Magnesium Level 1.6 mg/dL (1.7-2.5) L Objective HEAD AND NECK: Shows no JVD or carotid bruits. LUNGS: Clear. CARDIOVASCULAR: Regular S1 and S2 with no gallop or murmur. The pacemaker is at left subclavian. ABDOMEN: Soft.PEG in place EXTREMITIES: Large sacral decubitus status post surgery.No edema STAR ROA Dec 22, 2016 17:19
--- NOTE | 2016-12-22 17:38 | Wound Care Consultation ---
Wound Assessment Wound Assessment #1: Wound Number: #1 Wound Present on Admission: Yes New Wound: No Status Change of Wound: No Wound Location Body Site Modif: left, lateral Wound Location Body Site: malleolus/ankle Wound Type: pressure ulcer Crystal Test: Does not Crystal Pressure Ulcer Stage: IV/unstageable Wound Thickness: Full Thickness Wound Length: 1.0 Wound Width: 2.0 Wound Depth: utd Percent of Wound Black/Brown: 100 - thick dry adhered scab Wound Drainage Amount: None Wound Drainage Odor: None/Absent Tissue Surrounding Wound: dry Wound General Appearance: Necrotic Wound Assessment #2: Wound Number: #2 Wound Present on Admission: Yes New Wound: No Status Change of Wound: No Wound Location Body Site Modif: right Wound Location Body Site: heel Wound Type: pressure ulcer Crystal Test: Does not Crystal Pressure Ulcer Stage: IV/unstageable Wound Thickness: Full Thickness Wound Length: 6.0 Wound Width: 6.0 Wound Depth: utd Percent of Wound Black/Brown: 100 - thick black leathery eschar Wound Drainage Amount: None Wound Drainage Odor: None/Absent Tissue Surrounding Wound: Erythemic Wound General Appearance: Reddened, Necrotic Wound Assessment #3: Wound Number: #3 Wound Present on Admission: Yes New Wound: No Status Change of Wound: No Wound Location Body Site: sacral Wound Type: pressure ulcer Crystal Test: Does not Crystal Pressure Ulcer Stage: IV/unstageable Wound Thickness: Full Thickness Wound Length: 16.0 Wound Width: 16.0 Wound Depth: 3.5 Percent of Wound Crozier/Red: 70 Percent of Wound Bed Yellow/Wh: 30 - scattered Wound Drainage Description: Serosanguineous Wound Drainage Amount: Copious Wound Drainage Odor: None/Absent - decrease in odor noted. Tissue Surrounding Wound: Macerated Wound Undermining at 3:00: 3.0 - able to measure undermining d/t decrease in slough Wound Undermining at 9:00: 2.0 Undermining Location: 12-9 - A 11:00 Undermining is 4.0cm Wound Tunneling Length: 8.0 - able to measure tunneling d/t decrease in slough. Tunneling From: 6:00 Wound General Appearance: Reddened, Bleeding - scant noted to pink tissue., Draining, Bone Palpable, Muscle Visible, Bone Visible Wound Assessment #4: Wound Number: #4 Wound Present on Admission: Yes New Wound: No Status Change of Wound: No Wound Location Body Site Modif: left Wound Location Body Site: metatarsal head - 1st Wound Type: pressure ulcer Crystal Test: Does not Crystal Pressure Ulcer Stage: deep tissue injury Wound Thickness: Full Thickness Wound Length: 1.0 Wound Width: 1.0 Wound Depth: utd Percent of Wound Purple/Maroon: 100 Wound Drainage Amount: None Wound Drainage Odor: None/Absent Tissue Surrounding Wound: Intact Wound General Appearance: Reddened - maroon Wound Assessment #5: Wound Number: #5 Wound Present on Admission: Yes New Wound: No Status Change of Wound: Yes Wound Location Body Site Modif: left, lateral Wound Location Body Site: knee Wound Type: pressure ulcer Crystal Test: Does not Crystal Pressure Ulcer Stage: deep tissue injury Wound Thickness: Full Thickness Wound Length: 2.5 Wound Width: 2.0 Wound Depth: utd Percent of Wound Crozier/Red: 10 - noted small open area to dti site 2.0cmx 0.5cm , no drainage noted, wound bed pink.no s/s of infection. Percent of Wound Purple/Maroon: 90 Wound Drainage Amount: None Wound Drainage Odor: None/Absent Tissue Surrounding Wound: Denuded Wound General Appearance: Reddened - 10 red,90% maroon color. Wound Assessment #6: Wound Number: #6 Wound Present on Admission: Yes New Wound: No Status Change of Wound: No Wound Location Body Site Modif: right, lateral Wound Location Body Site: knee Wound Type: pressure ulcer Crystal Test: Does not Crystal Pressure Ulcer Stage: IV/unstageable Wound Thickness: Full Thickness Wound Length: 2.0 Wound Width: 2.0 Wound Depth: utd Percent of Wound Black/Brown: 100 Wound Drainage Amount: None Wound Drainage Odor: None/Absent Tissue Surrounding Wound: Intact Wound General Appearance: Blackened, Clean/Dry Wound Assessment #7: Wound Number: #7 Wound Present on Admission: Yes New Wound: No Status Change of Wound: No Wound Location Body Site Modif: left, posterior Wound Location Body Site: scapula Wound Type: pressure ulcer Crystal Test: Does not Crystal Pressure Ulcer Stage: deep tissue injury Wound Thickness: Full Thickness Wound Length: 1.0 Wound Width: 1.0 Wound Depth: utd Percent of Wound Black/Brown: 100 - noted intact, decrease in size previous maroon color now appears brown.forensic sergeant in color.good proress. Wound Drainage Amount: None Wound Drainage Odor: None/Absent Tissue Surrounding Wound: Intact Wound General Appearance: Clean/Dry Wound Comment #1 Left lateral malleolus pressure ulcer stage IV/Unstageable. #2 Right heel pressure ulcer stage IV/Unstageable. #3 Sacral pressure ulcer s/p debridement stage IV/Unstageable. #4 Left 1st metatarsal head pressure ulcer deep tissue injury. #5 Left lateral knee pressure ulcer deep tissue injury noted with small opening. #6 Right lateral knee pressure ulcer stage IV/Unstageable. #7 Left posterior scapula suspected deep tissue injury. Recommendation. -P200 mattress. -Local wound care as ordered. -Keep clean and dry. -Optimize nutrition. -Turn and reposition. -Offload affected wound sites, heels and feet. -Heel protectors. -Avoid shear and friction. -Assess and notify MD if further changes are noted. upon reassessment noted left lateral knee admitted dti with small opening, no s/ s of infection to site, pink wound bed, no drainage noted at this time. upon reassessment noted admitted wounds with good progress, no further deterioration present, current wound care remains effective. upon reassessment to sacral s/p debridement site, noted good progress , decrease in slough noted , noted undermining and tunneling are more visible and measurable at this time. significant decrease in odor noted. increase in pink tissue noted. patient tolerated reassessment well and wound care well, was previously offered pain medications, noted effective , was able to tolerate, patient remains clean and dry, repositioned to offload affected wound sites. FAHAD SEGUNDO Dec 22, 2016 17:37
--- NOTE | 2016-12-22 17:41 | Internal Med Progress Note ---
Subjective Date of Service: Dec 22, 2016 Physician Name Bradley Davis Attending Physician Titi Cruz MD Current Medications Medications (Trade) Dose Ordered Sig/David Route PRN Reason Start Time Stop Time Status Last Admin Dose Admin Acetaminophen (Tylenol) 650 mg Q4H PRN ORAL fever 12/15/16 09:45 01/14/17 09:44 Calcitonin [place] (Miacalcin) 1 sprays DAILY NASAL 12/15/16 11:00 01/14/17 10:59 12/22/16 09:43 Dextrose (Dextrose 50%) STAT PRN IV Hypoglycemia 12/15/16 11:00 01/14/17 10:59 12/18/16 21:19 Ertapenem/Sodium Chloride (INVanz/Sodium Chloride) 55 ml @ 110 mls/hr Q24H IVPB 12/19/16 12:00 12/24/16 11:59 12/22/16 13:33 Heparin Sodium (Porcine) (Heparin 5000 units/ml) 5,000 units EVERY 12 HOURS SUBQ 12/15/16 11:00 01/14/17 10:59 12/22/16 09:43 Insulin Aspart (NovoLOG) BEFORE MEALS AND HS SUBQ 12/15/16 11:30 01/14/17 11:29 12/22/16 13:27 Metoprolol Tartrate (Lopressor) 25 mg Q12HR PEG 12/19/16 21:00 01/18/17 20:59 12/21/16 20:55 Morphine Sulfate (Morphine Sulfate) 2 mg Q4H PRN IVP For Pain 12/22/16 13:45 12/29/16 13:44 12/22/16 15:41 Nitroglycerin (Ntg) 0.4 mg Q5M PRN SL Prn Chest Pain 12/15/16 09:45 01/14/17 09:44 Ondansetron HCl 4 mg 4 mg Q6H PRN IVP Nausea & Vomiting 12/15/16 11:45 01/14/17 11:44 Sodium Hypochlorite (Dakin's Half Strength) 1 applic DAILY TOPIC 12/15/16 11:00 01/14/17 10:59 12/22/16 15:46 Allergies: Coded Allergies: NO KNOWN ALLERGIES (Unverified Allergy, Unknown, 09/05/15) ROS Limited/Unobtainable: Yes Subjective 86 YO F admitted with sepsis. S/P debridement sacral decubitus ulcer on . Cover for Int Med-Dr Cruz. S/P PEG placement 12/19/16. S/P transfusion . Await acceptance at [facility]. Objective Last Vital Signs Date Time Temp Pulse Resp B/P Pulse Ox O2 Delivery O2 Flow Rate FiO2 12/22/16 16:00 97.9 67 20 107/53 99 Nasal Cannula 2.5 12/21/16 07:57 28 Laboratory Tests Test 12/22/16 04:00 White Blood Count 18.9 K/UL (4.8-10.8) H Red Blood Count 3.14 M/UL (4.20-5.40) L Hemoglobin 8.9 G/DL (12.0-16.0) L Hematocrit 26.4 % (37.0-47.0) L Mean Corpuscular Volume 84 FL (80-99) Mean Corpuscular Hemoglobin 28.2 PG (27.0-31.0) Mean Corpuscular Hemoglobin Concent 33.5 G/DL (32.0-36.0) Red Cell Distribution Width 17.8 % (11.6-14.8) H Platelet Count 182 K/UL (150-450) Mean Platelet Volume 7.2 FL (6.5-10.1) Neutrophils (%) (Auto) % (45.0-75.0) Lymphocytes (%) (Auto) % (20.0-45.0) Monocytes (%) (Auto) % (1.0-10.0) Eosinophils (%) (Auto) % (0.0-3.0) Basophils (%) (Auto) % (0.0-2.0) Differential Total Cells Counted 100 Neutrophils % (Manual) 82 % (45-75) H Lymphocytes % (Manual) 11 % (20-45) L Monocytes % (Manual) 0 % (1-10) L Eosinophils % (Manual) 0 % (0-3) Basophils % (Manual) 0 % (0-2) Band Neutrophils 7 % (0-8) Platelet Estimate Adequate Platelet Morphology Normal Hypochromasia 1+ Anisocytosis 1+ Target Cells Occasional Sodium Level 149 mEQ/L (135-145) H Potassium Level 3.3 mEQ/L (3.4-4.9) L Chloride Level 111 mEQ/L (98-107) H Carbon Dioxide Level 23 mEQ/L (20-30) Anion Gap 15 (5-15) Blood Urea Nitrogen 31 mg/dL (7-23) H Creatinine 0.7 mg/dL (0.5-0.9) Estimat Glomerular Filtration Rate mL/min (>60) Glucose Level 118 mg/dL (74-106) H Calcium Level 8.6 mg/dL (8.6-10.2) Phosphorus Level 3.0 mg/dL (2.5-4.8) Magnesium Level 1.6 mg/dL (1.7-2.5) L Intake and Output 12/21/16 12/22/16 19:00 07:00 Intake Total 615 ml 530 ml Output Total 200 ml 330 ml Balance 415 ml 200 ml Intake Free Water 150 ml 300 ml Tube Feeding 465 ml 230 ml Output Urine Total 200 ml 300 ml Stool Total 30 ml # Bowel Movements 2 2 Objective General Appearance: mild distress, lethargic, thin EENT: PERRL/EOMI, normal ENT inspection Neck: non-tender, normal alignment Cardiovascular: normal peripheral pulses, no gallop/murmur, no JVD, irregularly irregular Respiratory/Chest: chest wall non-tender, crackles/rales, rhonchi - bilaterally , expiratory wheezing Abdomen: normal bowel sounds, non tender, soft, no organomegaly, no mass Extremities: normal range of motion, non-tender Skin: normal pigmentation, warm/dry Assessment/Plan Problem List: (1) Dysphagia Assessment & Plan: S/P PEG placement 12/19/16-See GI note-Dr Miles. (2) Hypokalemia Assessment & Plan: See nephrology note. (3) Hypernatremia (4) UTI (urinary tract infection) Assessment & Plan: E. Coli. Continue ertapenem per ID. (5) Severe malnutrition (6) Renal failure Assessment & Plan: Followed by nephrology - Dr Leone- see note. (7) Sepsis (8) Sacral decubitus ulcer, stage IV Assessment & Plan: S/P Debridement 12/14/16. Continue ertapenem per ID (9) Hypertension (10) Coronary artery disease (11) Atrial fibrillation Assessment & Plan: See cardiology note. (12) History of DVT (deep vein thrombosis) (13) Anemia Assessment & Plan: S/P transfusion 1 unit PRBC on 12/20/16 (14) Diabetes mellitus Assessment & Plan: Hyperglycemia. Add novolog sliding scale. (15) Osteomyelitis of sacrum Assessment & Plan: Continue Invanz - See ID note. Status: progressing Assessment/Plan Transfer to [facility] when accepted. Flu vac ordered per case management request prior to discharge to SNF BRADLEY DAVIS Dec 22, 2016 17:41
[2016-12-22] MEDS ORDERED: Influenza Virus Vaccine 0.5ml IM ONE (19:00)
[2016-12-22 20:02] VITALS: BP 135/73
--- NOTE | 2016-12-22 22:28 | Pulmonology Progress Note ---
Assessment/Plan Problems: (1) Sepsis (2) Acute encephalopathy (3) Renal failure (4) UTI (urinary tract infection) (5) Decubitus ulcer of sacral area (6) Anemia (7) Alzheimer's dementia Assessment/Plan s/p debridement NG tube insertion was not successful continue antibiotics check cultures check electrolytes iv fluids check Ca daily wbc decreasing dvt prophylaxis Subjective ROS Limited/Unobtainable: Yes Constitutional: Reports: anorexia, fatigue Genitourinary: Reports: dysuria, frequency, hematuria, nocturia, urgency Neurologic: Reports: confusion, weakness Skin: Reports: rash, ulcer Allergies: Coded Allergies: NO KNOWN ALLERGIES (Unverified Allergy, Unknown, 09/05/15) Objective Last 24 Hour Vital Signs Date Time Temp Pulse Resp B/P Pulse Ox O2 Delivery O2 Flow Rate FiO2 12/22/16 20:53 73 135/73 12/22/16 20:02 97.7 73 20 135/73 98 Nasal Cannula 2.5 12/22/16 19:37 Nasal Cannula 4.0 36 12/22/16 19:37 97 Nasal Cannula 4.0 36 12/22/16 16:00 97.9 67 20 107/53 99 Nasal Cannula 2.5 12/22/16 12:00 97.7 76 18 106/55 98 Nasal Cannula 3.0 12/22/16 09:00 63 104/55 12/22/16 08:00 97.7 63 18 104/55 100 Nasal Cannula 3.0 12/22/16 04:00 98.1 76 18 117/72 98 Nasal Cannula 2.0 12/22/16 00:00 97.5 69 18 131/71 97 Nasal Cannula 3.0 Intake and Output 12/21/16 12/22/16 19:00 07:00 Intake Total 615 ml 530 ml Output Total 200 ml 330 ml Balance 415 ml 200 ml Intake Free Water 150 ml 300 ml Tube Feeding 465 ml 230 ml Output Urine Total 200 ml 300 ml Stool Total 30 ml # Bowel Movements 2 2 General Appearance: no acute distress HEENT: normocephalic, atraumatic, PERRL Respiratory/Chest: chest wall non-tender, decreased breath sounds, accessory muscle use, rhonchi Breasts: no masses Cardiovascular: bradycardia, arrhythmia, irregularly irregular Abdomen: normal bowel sounds, soft, non tender, no organomegaly Genitourinary: normal external genitalia Skin: rash, lesions, ulcers Neurologic/Psychiatric: second mate II-XII grossly normal, responsive, disoriented Laboratory Tests 12/22/16 04:00: White Blood Count 18.9H, Red Blood Count 3.14L, Hemoglobin 8.9L, Hematocrit 26.4L, Mean Corpuscular Volume 84, Mean Corpuscular Hemoglobin 28.2, Mean Corpuscular Hemoglobin Concent 33.5, Red Cell Distribution Width 17.8H, Platelet Count 182, Mean Platelet Volume 7.2, Neutrophils (%) (Auto) , Lymphocytes (%) (Auto) , Monocytes (%) (Auto) , Eosinophils (%) (Auto) , Basophils (%) (Auto) , Differential Total Cells Counted 100, Neutrophils % ( Manual) 82H, Lymphocytes % (Manual) 11L, Monocytes % (Manual) 0L, Eosinophils % (Manual) 0, Basophils % (Manual) 0, Band Neutrophils 7, Platelet Estimate Adequate, Platelet Morphology Normal, Hypochromasia 1+, Anisocytosis 1+, Target Cells Occasional, Sodium Level 149H, Potassium Level 3.3L, Chloride Level 111H, Carbon Dioxide Level 23, Anion Gap 15, Blood Urea Nitrogen 31H, Creatinine 0.7, Estimat Glomerular Filtration Rate , Glucose Level 118H, Calcium Level 8.6, Phosphorus Level 3.0, Magnesium Level 1.6L Current Medications Medications (Trade) Dose Ordered Sig/David Route PRN Reason Start Time Stop Time Status Last Admin Dose Admin Acetaminophen (Tylenol) 650 mg Q4H PRN ORAL fever 12/15/16 09:45 01/14/17 09:44 Calcitonin [place] (Miacalcin) 1 sprays DAILY NASAL 12/15/16 11:00 01/14/17 10:59 12/22/16 09:43 Dextrose (Dextrose 50%) STAT PRN IV Hypoglycemia 12/15/16 11:00 01/14/17 10:59 12/18/16 21:19 Ertapenem/Sodium Chloride (INVanz/Sodium Chloride) 55 ml @ 110 mls/hr Q24H IVPB 12/19/16 12:00 01/21/17 23:59 12/22/16 13:33 Heparin Sodium (Porcine) (Heparin 5000 units/ml) 5,000 units EVERY 12 HOURS SUBQ 12/15/16 11:00 01/14/17 10:59 12/22/16 20:56 Insulin Aspart (NovoLOG) BEFORE MEALS AND HS SUBQ 12/15/16 11:30 01/14/17 11:29 12/22/16 20:55 Metoprolol Tartrate (Lopressor) 25 mg Q12HR PEG 12/19/16 21:00 01/18/17 20:59 12/22/16 20:53 Morphine Sulfate (Morphine Sulfate) 2 mg Q4H PRN IVP For Pain 12/22/16 13:45 12/29/16 13:44 12/22/16 15:41 Nitroglycerin (Ntg) 0.4 mg Q5M PRN SL Prn Chest Pain 12/15/16 09:45 01/14/17 09:44 Ondansetron HCl 4 mg 4 mg Q6H PRN IVP Nausea & Vomiting 12/15/16 11:45 01/14/17 11:44 Sodium Hypochlorite (Dakin's Half Strength) 1 applic DAILY TOPIC 12/15/16 11:00 01/14/17 10:59 12/22/16 15:46 EVENS CASTELLON Dec 22, 2016 22:28
[2016-12-23] VITALS (7 sets, daily range): BP systolic 98–122; BP diastolic 46–76
[2016-12-23] MEDS: NovoLOG Insulin Flexpen SUBQ SCH ×4 (06:05→20:11)
[2016-12-23 06:52] LABS: MEAN CORPUSCULAR HEMOGLOBIN 28.5 PG (27.0-31.0); MEAN CORPUSCULAR HGB CONC 33.5 G/DL (32.0-36.0); MEAN CORPUSCULAR VOLUME 85 FL (80-99); MEAN PLATELET VOLUME 6.7 FL (6.5-10.1); PLATELET COUNT 176 K/UL (150-450); RED BLOOD COUNT 2.86 M/UL (4.20-5.40); RED CELL DISTRIBUTION WIDTH 17.5 % (11.6-14.8); WHITE BLOOD COUNT 15.9 K/UL (4.8-10.8)
[2016-12-23 07:12] LABS: ANION GAP 11 (5-15); CALCIUM 6.8 mg/dL (8.6-10.2); CARBON DIOXIDE 20 mEQ/L (20-30); CHLORIDE 122 mEQ/L (98-107); CREATININE 0.6 mg/dL (0.5-0.9); HEMOLYSIS 1; MAGNESIUM 1.4 mg/dL (1.7-2.5); POTASSIUM 3.9 mEQ/L (3.4-4.9); SODIUM 153 mEQ/L (135-145)
[2016-12-23 08:12] LABS: ANISOCYTOSIS 1+; BAND NEUTROPHILS % (MANUAL) 3 % (0-8); BASOPHILS % (MANUAL) 0 % (0-2); EOSINOPHILS % (MANUAL) 1 % (0-3); HYPOCHROMASIA 1+; LYMPHOCYTES % (MANUAL) 9 % (20-45); NEUTROPHILS % (MANUAL) 85 % (45-75); PLATELET ESTIMATE ADEQUATE; PLATELET MORPHOLOGY NORMAL; POIKILOCYTOSIS OCCASIONAL; TOTAL CELLS COUNTED 100
[2016-12-23 08:13] LABS: TARGET CELLS OCCASIONAL
[2016-12-23] MEDS: Metoprolol 25mg tab PEG SCH ×2 (08:55→20:11)
[2016-12-23] MEDS: Heparin 5000 units/ml inj SUBQ SCH ×2 (08:58→21:28)
[2016-12-23] MEDS: Dakin's 0.25% (Half Strength) 16oz TOPIC SCH (08:59)
--- NOTE | 2016-12-23 10:15 | Infectious Diseases Prog Note ---
Assessment/Plan Assessment/Plan A: The patient is an 86-year-old female Leukocytosis improving Sepsis, SP wound infection , osteomyelitis sacrum Wnd Cx : Ecoli , Citrobacter, StrpV SP Debridement Probable UTI EColi +ve Blood cx : CoNS SP Rx ALOC Diarrhea Ro C Diff SP PEG HTN DM PVD CAD Paroxysmal atrial fibrillation. History of right lower extremity DVT. Anemia PLAN: continue the patient on Invanz d# 5 / 35 ( SP IV vancomycin. and Zosyn ---> Rocephin d# 7 ) Monitor CBC. Monitor BMP. C Diff Subjective Constitutional: Denies: anorexia, chills, drenching sweats, fatigue, fever, no symptoms, other Allergies: Coded Allergies: NO KNOWN ALLERGIES (Unverified Allergy, Unknown, 09/05/15) Subjective Diarrhea Objective Vital Signs Last 24 Hour Vital Signs Date Time Temp Pulse Resp B/P Pulse Ox O2 Delivery O2 Flow Rate FiO2 12/23/16 08:55 85 110/74 12/23/16 08:20 99 Nasal Cannula 4.0 36 12/23/16 08:20 Nasal Cannula 4.0 36 12/23/16 08:11 97.7 85 19 110/74 100 Nasal Cannula 3.0 12/23/16 04:00 98.2 67 18 116/64 100 Nasal Cannula 12/23/16 00:28 98.1 12/23/16 00:00 98.1 70 20 122/71 100 Nasal Cannula 12/22/16 20:53 73 135/73 12/22/16 20:02 97.7 73 20 135/73 98 Nasal Cannula 2.5 12/22/16 19:37 Nasal Cannula 4.0 36 12/22/16 19:37 97 Nasal Cannula 4.0 36 12/22/16 16:00 97.9 67 20 107/53 99 Nasal Cannula 2.5 12/22/16 12:00 97.7 76 18 106/55 98 Nasal Cannula 3.0 Height (Feet): 5 Height (Inches): 3.00 Weight (Pounds): 140 HEENT: atraumatic Respiratory/Chest: lungs clear Cardiovascular: normal rate Abdomen: no organomegaly Laboratory Tests Test 12/23/16 04:00 White Blood Count 15.9 K/UL (4.8-10.8) H Red Blood Count 2.86 M/UL (4.20-5.40) L Hemoglobin 8.1 G/DL (12.0-16.0) L Hematocrit 24.3 % (37.0-47.0) L Mean Corpuscular Volume 85 FL (80-99) Mean Corpuscular Hemoglobin 28.5 PG (27.0-31.0) Mean Corpuscular Hemoglobin Concent 33.5 G/DL (32.0-36.0) Red Cell Distribution Width 17.5 % (11.6-14.8) H Platelet Count 176 K/UL (150-450) Mean Platelet Volume 6.7 FL (6.5-10.1) Neutrophils (%) (Auto) % (45.0-75.0) Lymphocytes (%) (Auto) % (20.0-45.0) Monocytes (%) (Auto) % (1.0-10.0) Eosinophils (%) (Auto) % (0.0-3.0) Basophils (%) (Auto) % (0.0-2.0) Differential Total Cells Counted 100 Neutrophils % (Manual) 85 % (45-75) H Lymphocytes % (Manual) 9 % (20-45) L Monocytes % (Manual) 2 % (1-10) Eosinophils % (Manual) 1 % (0-3) Basophils % (Manual) 0 % (0-2) Band Neutrophils 3 % (0-8) Platelet Estimate Adequate Platelet Morphology Normal Hypochromasia 1+ Poikilocytosis Occasional Anisocytosis 1+ Target Cells Occasional Sodium Level 153 mEQ/L (135-145) H Potassium Level 3.9 mEQ/L (3.4-4.9) Chloride Level 122 mEQ/L (98-107) H Carbon Dioxide Level 20 mEQ/L (20-30) Anion Gap 11 (5-15) Blood Urea Nitrogen 28 mg/dL (7-23) H Creatinine 0.6 mg/dL (0.5-0.9) Estimat Glomerular Filtration Rate mL/min (>60) Glucose Level 123 mg/dL (74-106) H Calcium Level 6.8 mg/dL (8.6-10.2) #L Magnesium Level 1.4 mg/dL (1.7-2.5) L Current Medications Medications (Trade) Dose Ordered Sig/David Route PRN Reason Start Time Stop Time Status Last Admin Dose Admin Acetaminophen (Tylenol) 650 mg Q4H PRN ORAL fever 12/15/16 09:45 01/14/17 09:44 Dextrose (D5W 1000ml) 1,000 ml @ 75 mls/hr [id number] ONCE IV 12/23/16 09:15 12/23/16 22:34 12/23/16 09:42 Dextrose (Dextrose 50%) STAT PRN IV Hypoglycemia 12/15/16 11:00 01/14/17 10:59 12/18/16 21:19 Ertapenem/Sodium Chloride (INVanz/Sodium Chloride) 55 ml @ 110 mls/hr Q24H IVPB 12/19/16 12:00 01/21/17 23:59 12/22/16 13:33 Heparin Sodium (Porcine) (Heparin 5000 units/ml) 5,000 units EVERY 12 HOURS SUBQ 12/15/16 11:00 01/14/17 10:59 12/23/16 08:58 Insulin Aspart (NovoLOG) BEFORE MEALS AND HS SUBQ 12/15/16 11:30 01/14/17 11:29 12/23/16 06:05 Magnesium Sulfate 100 ml @ 100 mls/hr Q1H IVPB 12/23/16 10:00 12/23/16 13:59 12/23/16 09:42 Metoprolol Tartrate (Lopressor) 25 mg Q12HR PEG 12/19/16 21:00 01/18/17 20:59 12/23/16 08:55 Morphine Sulfate 2 mg 2 mg Q4H PRN IVP For Pain 12/22/16 13:45 12/29/16 13:44 12/22/16 23:58 Nitroglycerin (Ntg) 0.4 mg Q5M PRN SL Prn Chest Pain 12/15/16 09:45 01/14/17 09:44 Ondansetron HCl 4 mg 4 mg Q6H PRN IVP Nausea & Vomiting 12/15/16 11:45 01/14/17 11:44 Sodium Hypochlorite (Dakin's Half Strength) 1 applic DAILY TOPIC 12/15/16 11:00 01/14/17 10:59 12/23/16 08:59 RADHA BAILNO M.D. Dec 23, 2016 10:15
--- NOTE | 2016-12-23 11:24 | General Progress Note ---
Assessment/Plan Status: unchanged Status Narrative Ca and Mag low Assessment/Plan status: Acute renal failure- mainly prerenal improved HyperCalcemia- being treated Leukocytosis / sepsis, on antibiotics other conditions mentioned in PH: -History of anemia. -Hypertension. -Diabetes type 2. -History of coronary artery disease. -Renal failure. -Paroxysmal atrial fibrillation. -History of right lower extremity deep venous thrombosis. -Arthritis. -Alzheimer's dementia. -Pacemaker in situ. Plan: Has PEG Phos and K and Mag supplement as needed- Monitor renal parameters- per orders- Per GI and ID discussed with RN Subjective ROS Limited/Unobtainable: Yes Allergies: Coded Allergies: NO KNOWN ALLERGIES (Unverified Allergy, Unknown, 09/05/15) Objective Last 24 Hour Vital Signs Date Time Temp Pulse Resp B/P Pulse Ox O2 Delivery O2 Flow Rate FiO2 12/23/16 08:55 85 110/74 12/23/16 08:20 99 Nasal Cannula 4.0 36 12/23/16 08:20 Nasal Cannula 4.0 36 12/23/16 08:11 97.7 85 19 110/74 100 Nasal Cannula 3.0 12/23/16 04:00 98.2 67 18 116/64 100 Nasal Cannula 12/23/16 00:28 98.1 12/23/16 00:00 98.1 70 20 122/71 100 Nasal Cannula 12/22/16 20:53 73 135/73 12/22/16 20:02 97.7 73 20 135/73 98 Nasal Cannula 2.5 12/22/16 19:37 Nasal Cannula 4.0 36 12/22/16 19:37 97 Nasal Cannula 4.0 36 12/22/16 16:00 97.9 67 20 107/53 99 Nasal Cannula 2.5 12/22/16 12:00 97.7 76 18 106/55 98 Nasal Cannula 3.0 Intake and Output 12/22/16 12/23/16 19:00 07:00 Intake Total 585 ml 255 ml Output Total 152 ml 550 ml Balance 433 ml -295 ml Intake Free Water 150 ml 150 ml IV Total 55 ml Tube Feeding 380 ml 105 ml Output Urine Total 150 ml 550 ml Stool Total 2 ml Laboratory Tests 12/23/16 04:00: White Blood Count 15.9H, Red Blood Count 2.86L, Hemoglobin 8.1L, Hematocrit 24.3L, Mean Corpuscular Volume 85, Mean Corpuscular Hemoglobin 28.5, Mean Corpuscular Hemoglobin Concent 33.5, Red Cell Distribution Width 17.5H, Platelet Count 176, Mean Platelet Volume 6.7, Neutrophils (%) (Auto) , Lymphocytes (%) (Auto) , Monocytes (%) (Auto) , Eosinophils (%) (Auto) , Basophils (%) (Auto) , Differential Total Cells Counted 100, Neutrophils % ( Manual) 85H, Lymphocytes % (Manual) 9L, Monocytes % (Manual) 2, Eosinophils % ( Manual) 1, Basophils % (Manual) 0, Band Neutrophils 3, Platelet Estimate Adequate, Platelet Morphology Normal, Hypochromasia 1+, Poikilocytosis Occasional, Anisocytosis 1+, Target Cells Occasional, Sodium Level 153H, Potassium Level 3.9, Chloride Level 122H, Carbon Dioxide Level 20, Anion Gap 11 , Blood Urea Nitrogen 28H, Creatinine 0.6, Estimat Glomerular Filtration Rate , Glucose Level 123H, Calcium Level 6.8#L, Magnesium Level 1.4L Height (Feet): 5 Height (Inches): 3.00 Weight (Pounds): 140 General Appearance: no apparent distress Cardiovascular: tachycardia Respiratory/Chest: decreased breath sounds Abdomen: soft Objective other PE not changed EARNEST CADET Dec 23, 2016 11:24
[2016-12-23] MEDS: Ertapenem 1 GM in NS 55 ML IVPB SCH (11:48)
--- NOTE | 2016-12-23 13:50 | GI Progress Note ---
Assessment/Plan Problems: (1) Diabetes mellitus ICD Codes: E11.9 - Type 2 diabetes mellitus without complications SNOMED: 20381354 (2) Dysphagia ICD Codes: R13.10 - Dysphagia, unspecified SNOMED: 47841552, 614673680 (3) Encounter for PEG (percutaneous endoscopic gastrostomy) ICD Codes: Z43.1 - Encounter for attention to gastrostomy SNOMED: 303028720, 495726840 (4) Severe malnutrition ICD Codes: E43 - Unspecified severe protein-calorie malnutrition SNOMED: 72500408 (5) Hypoalbuminemia ICD Codes: E88.09 - Other disorders of plasma-protein metabolism, not elsewhere classified SNOMED: 881890454 (6) Leukocytosis ICD Codes: D72.829 - Elevated white blood cell count, unspecified SNOMED: 470348964, 629147824 (7) Iron deficiency ICD Codes: E61.1 - Iron deficiency SNOMED: 75836678 Status: progressing Status Narrative Discussed with Dr. Miles. Assessment/Plan SUMMARY OF FINDINGS: 1. Severe atrophic gastritis. 2. Two gastric polyps removed with the snare polypectomy technique. 3. Status post successful percutaneous endoscopic gastrostomy placement. gastric biopsy >> no meta/dysplasia RECOMMENDATIONS: 1. Abdominal binder. 2. Elevate the head of the bed at all times. 3. G-tube flush. 4. G-tube care. 5. GTFs cdiff negative swallow video for oral grat abx monitor H&H >> transfused prn PPI daily given history of severe gastritis iron panel >> unremarkable bowel regime fu labs Subjective Subjective limited Objective Last 24 Hour Vital Signs Date Time Temp Pulse Resp B/P Pulse Ox O2 Delivery O2 Flow Rate FiO2 12/23/16 12:36 97.0 80 18 112/76 99 Nasal Cannula 3.0 12/23/16 08:55 85 110/74 12/23/16 08:20 99 Nasal Cannula 4.0 36 12/23/16 08:20 Nasal Cannula 4.0 36 12/23/16 08:11 97.7 85 19 110/74 100 Nasal Cannula 3.0 12/23/16 04:00 98.2 67 18 116/64 100 Nasal Cannula 12/23/16 00:28 98.1 12/23/16 00:00 98.1 70 20 122/71 100 Nasal Cannula 12/22/16 20:53 73 135/73 12/22/16 20:02 97.7 73 20 135/73 98 Nasal Cannula 2.5 12/22/16 19:37 Nasal Cannula 4.0 36 12/22/16 19:37 97 Nasal Cannula 4.0 36 12/22/16 16:00 97.9 67 20 107/53 99 Nasal Cannula 2.5 Intake and Output 12/22/16 12/23/16 19:00 07:00 Intake Total 585 ml 255 ml Output Total 152 ml 550 ml Balance 433 ml -295 ml Intake Free Water 150 ml 150 ml IV Total 55 ml Tube Feeding 380 ml 105 ml Output Urine Total 150 ml 550 ml Stool Total 2 ml Laboratory Tests Test 12/23/16 04:00 White Blood Count 15.9 K/UL (4.8-10.8) H Red Blood Count 2.86 M/UL (4.20-5.40) L Hemoglobin 8.1 G/DL (12.0-16.0) L Hematocrit 24.3 % (37.0-47.0) L Mean Corpuscular Volume 85 FL (80-99) Mean Corpuscular Hemoglobin 28.5 PG (27.0-31.0) Mean Corpuscular Hemoglobin Concent 33.5 G/DL (32.0-36.0) Red Cell Distribution Width 17.5 % (11.6-14.8) H Platelet Count 176 K/UL (150-450) Mean Platelet Volume 6.7 FL (6.5-10.1) Neutrophils (%) (Auto) % (45.0-75.0) Lymphocytes (%) (Auto) % (20.0-45.0) Monocytes (%) (Auto) % (1.0-10.0) Eosinophils (%) (Auto) % (0.0-3.0) Basophils (%) (Auto) % (0.0-2.0) Differential Total Cells Counted 100 Neutrophils % (Manual) 85 % (45-75) H Lymphocytes % (Manual) 9 % (20-45) L Monocytes % (Manual) 2 % (1-10) Eosinophils % (Manual) 1 % (0-3) Basophils % (Manual) 0 % (0-2) Band Neutrophils 3 % (0-8) Platelet Estimate Adequate Platelet Morphology Normal Hypochromasia 1+ Poikilocytosis Occasional Anisocytosis 1+ Target Cells Occasional Sodium Level 153 mEQ/L (135-145) H Potassium Level 3.9 mEQ/L (3.4-4.9) Chloride Level 122 mEQ/L (98-107) H Carbon Dioxide Level 20 mEQ/L (20-30) Anion Gap 11 (5-15) Blood Urea Nitrogen 28 mg/dL (7-23) H Creatinine 0.6 mg/dL (0.5-0.9) Estimat Glomerular Filtration Rate mL/min (>60) Glucose Level 123 mg/dL (74-106) H Calcium Level 6.8 mg/dL (8.6-10.2) #L Magnesium Level 1.4 mg/dL (1.7-2.5) L Microbiology Date/Time Source Procedure Growth Status 12/22/16 16:15 Stool Clostridium difficile Toxin Assay - Final Complete Height (Feet): 5 Height (Inches): 3.00 Weight (Pounds): 140 General Appearance: no apparent distress, alert Cardiovascular: normal rate Respiratory/Chest: no respiratory distress, other - 2LNC Abdominal Exam: GT site - c/d/i Objective DATE OF PROCEDURE: 12/19/2016 SURGEON: Ruben Miles M.D. PROCEDURE: Upper endoscopy with snare polypectomy biopsy and G-tube placement. SUMMARY OF FINDINGS: 1. Severe atrophic gastritis. 2. Two gastric polyps removed with the snare polypectomy technique. 3. Status post successful percutaneous endoscopic gastrostomy placement. RECOMMENDATIONS: 1. Abdominal binder. 2. Elevate the head of the bed at all times. 3. G-tube flush. 4. G-tube care. 5. Start tube feeding later today. 6. The patient is currently on ceftriaxone. DATE OF PROCEDURE: 10/23/2015 SURGEON: Ruben Miles M.D. PROCEDURE: Upper endoscopy with biopsy and colonoscopy with biopsy and polypectomy. INDICATION: Anemia, screening colonoscopy evaluation, abdominal pain, and GERD. SUMMARY OF FINDINGS: 1. Severe gastritis, status post biopsy. 2. Duodenal polyp, status post biopsy. 3. Inflammatory looking polyp in the antrum of the stomach, status post biopsy. 4. Paraesophageal hernia. 5. Two colonic polyp removed, see above for details. 6. Diverticulosis. 7. Internal hemorrhoids. Lyndsay Torres N.P. 10, 2017 13:50
--- NOTE | 2016-12-23 13:55 | Diagnostic Imaging Report ---
Indication: Congestion Comparison: 12/13/16 A single view chest radiograph was obtained. Findings: Patchy infiltrate suspected in the right upper lobe. Hilar vessels are prominent and there is cardiomegaly. Left basilar consolidation versus atelectasis also noted. Bones are osteopenic. There is a PICC line which is in good position. The tip is in the SVC. A pacemaker is again noted. Bones are osteopenic. Impression: Patchy infiltrates bilaterally as discussed above.
--- NOTE | 2016-12-23 16:35 | Cardiac Electrophysiology PN ---
Assessment/Plan Assessment/Plan 1. Status post Biotronik single chamber pacemaker with NL function.. 2. Chronic atrial fibrillation with stable rate on metoprolol 25 mg b.i.d. and off anticoagulation for bleeding and Hb 6 range. 3. Hypertension. On metoprolol 25 mg b.i.d. 4. Sacral decubitus. Status post excision and debridement of sacral decubitus by Dr. Steinberg.On IV ABx. 5. History of anemia. 6. Azotemia. 7. Diastolic dysfunction. BNP of 8000. 8. Dysphagia.S/P PEG 12/19/16 DW RN at bedside. Subjective Subjective Still nonverbal. RN and daughter at bedside. No events overnight. On IV abx. Objective Last 24 Hour Vital Signs Date Time Temp Pulse Resp B/P Pulse Ox O2 Delivery O2 Flow Rate FiO2 12/23/16 16:28 98.4 12/23/16 16:06 96.1 65 22 110/46 99 Nasal Cannula 2.5 12/23/16 12:36 97.0 80 18 112/76 99 Nasal Cannula 3.0 12/23/16 08:55 85 110/74 12/23/16 08:20 99 Nasal Cannula 4.0 36 12/23/16 08:20 Nasal Cannula 4.0 36 12/23/16 08:11 97.7 85 19 110/74 100 Nasal Cannula 3.0 12/23/16 04:00 98.2 67 18 116/64 100 Nasal Cannula 12/23/16 00:28 98.1 12/23/16 00:00 98.1 70 20 122/71 100 Nasal Cannula 12/22/16 20:53 73 135/73 12/22/16 20:02 97.7 73 20 135/73 98 Nasal Cannula 2.5 12/22/16 19:37 Nasal Cannula 4.0 36 12/22/16 19:37 97 Nasal Cannula 4.0 36 Intake and Output 12/22/16 12/23/16 19:00 07:00 Intake Total 585 ml 255 ml Output Total 152 ml 550 ml Balance 433 ml -295 ml Intake Free Water 150 ml 150 ml IV Total 55 ml Tube Feeding 380 ml 105 ml Output Urine Total 150 ml 550 ml Stool Total 2 ml Laboratory Tests Test 12/23/16 04:00 White Blood Count 15.9 K/UL (4.8-10.8) H Red Blood Count 2.86 M/UL (4.20-5.40) L Hemoglobin 8.1 G/DL (12.0-16.0) L Hematocrit 24.3 % (37.0-47.0) L Mean Corpuscular Volume 85 FL (80-99) Mean Corpuscular Hemoglobin 28.5 PG (27.0-31.0) Mean Corpuscular Hemoglobin Concent 33.5 G/DL (32.0-36.0) Red Cell Distribution Width 17.5 % (11.6-14.8) H Platelet Count 176 K/UL (150-450) Mean Platelet Volume 6.7 FL (6.5-10.1) Neutrophils (%) (Auto) % (45.0-75.0) Lymphocytes (%) (Auto) % (20.0-45.0) Monocytes (%) (Auto) % (1.0-10.0) Eosinophils (%) (Auto) % (0.0-3.0) Basophils (%) (Auto) % (0.0-2.0) Differential Total Cells Counted 100 Neutrophils % (Manual) 85 % (45-75) H Lymphocytes % (Manual) 9 % (20-45) L Monocytes % (Manual) 2 % (1-10) Eosinophils % (Manual) 1 % (0-3) Basophils % (Manual) 0 % (0-2) Band Neutrophils 3 % (0-8) Platelet Estimate Adequate Platelet Morphology Normal Hypochromasia 1+ Poikilocytosis Occasional Anisocytosis 1+ Target Cells Occasional Sodium Level 153 mEQ/L (135-145) H Potassium Level 3.9 mEQ/L (3.4-4.9) Chloride Level 122 mEQ/L (98-107) H Carbon Dioxide Level 20 mEQ/L (20-30) Anion Gap 11 (5-15) Blood Urea Nitrogen 28 mg/dL (7-23) H Creatinine 0.6 mg/dL (0.5-0.9) Estimat Glomerular Filtration Rate mL/min (>60) Glucose Level 123 mg/dL (74-106) H Calcium Level 6.8 mg/dL (8.6-10.2) #L Magnesium Level 1.4 mg/dL (1.7-2.5) L Microbiology Date/Time Source Procedure Growth Status 12/22/16 16:15 Stool Clostridium difficile Toxin Assay - Final Complete Objective HEAD AND NECK: Shows no JVD LUNGS: Clear. CARDIOVASCULAR: Regular S1 and S2 with no gallop or murmur. Pacemaker is at left subclavian intact. ABDOMEN: Soft.PEG in place EXTREMITIES: Large sacral decubitus status post surgery.No edema STAR ROA Dec 23, 2016 16:35
[2016-12-23] MEDS: Morphine Sulfate 2mg/ml Inj IVP PRN (17:44)
--- NOTE | 2016-12-23 19:50 | Internal Med Progress Note ---
Subjective Physician Name Titi Cruz Attending Physician Titi Cruz MD Current Medications Medications (Trade) Dose Ordered Sig/David Route PRN Reason Start Time Stop Time Status Last Admin Dose Admin Acetaminophen (Tylenol) 650 mg Q4H PRN ORAL fever 12/15/16 09:45 01/14/17 09:44 Dextrose (D5W 1000ml) 1,000 ml @ 75 mls/hr [id number] ONCE IV 12/23/16 09:15 12/23/16 22:34 12/23/16 09:42 Dextrose (Dextrose 50%) STAT PRN IV Hypoglycemia 12/15/16 11:00 01/14/17 10:59 12/18/16 21:19 Ertapenem/Sodium Chloride (INVanz/Sodium Chloride) 55 ml @ 110 mls/hr Q24H IVPB 12/19/16 12:00 01/21/17 23:59 12/23/16 11:48 Heparin Sodium (Porcine) (Heparin 5000 units/ml) 5,000 units EVERY 12 HOURS SUBQ 12/15/16 11:00 01/14/17 10:59 12/23/16 08:58 Insulin Aspart (NovoLOG) BEFORE MEALS AND HS SUBQ 12/15/16 11:30 01/14/17 11:29 12/23/16 17:45 Metoprolol Tartrate (Lopressor) 25 mg Q12HR PEG 12/19/16 21:00 01/18/17 20:59 12/23/16 08:55 Morphine Sulfate 2 mg 2 mg Q4H PRN IVP For Pain 12/22/16 13:45 12/29/16 13:44 12/23/16 17:44 Nitroglycerin (Ntg) 0.4 mg Q5M PRN SL Prn Chest Pain 12/15/16 09:45 01/14/17 09:44 Ondansetron HCl 4 mg 4 mg Q6H PRN IVP Nausea & Vomiting 12/15/16 11:45 01/14/17 11:44 Sodium Hypochlorite (Dakin's Half Strength) 1 applic DAILY TOPIC 12/15/16 11:00 01/14/17 10:59 12/23/16 08:59 Allergies: Coded Allergies: NO KNOWN ALLERGIES (Unverified Allergy, Unknown, 09/05/15) Subjective very weak, open eyes, less responsive, daughter at bedside, Hgb: 8.1 Objective Last Vital Signs Date Time Temp Pulse Resp B/P Pulse Ox O2 Delivery O2 Flow Rate FiO2 12/23/16 19:01 96 Nasal Cannula 4.0 36 12/23/16 16:28 98.4 12/23/16 16:06 65 22 110/46 Laboratory Tests Test 12/23/16 04:00 White Blood Count 15.9 K/UL (4.8-10.8) H Red Blood Count 2.86 M/UL (4.20-5.40) L Hemoglobin 8.1 G/DL (12.0-16.0) L Hematocrit 24.3 % (37.0-47.0) L Mean Corpuscular Volume 85 FL (80-99) Mean Corpuscular Hemoglobin 28.5 PG (27.0-31.0) Mean Corpuscular Hemoglobin Concent 33.5 G/DL (32.0-36.0) Red Cell Distribution Width 17.5 % (11.6-14.8) H Platelet Count 176 K/UL (150-450) Mean Platelet Volume 6.7 FL (6.5-10.1) Neutrophils (%) (Auto) % (45.0-75.0) Lymphocytes (%) (Auto) % (20.0-45.0) Monocytes (%) (Auto) % (1.0-10.0) Eosinophils (%) (Auto) % (0.0-3.0) Basophils (%) (Auto) % (0.0-2.0) Differential Total Cells Counted 100 Neutrophils % (Manual) 85 % (45-75) H Lymphocytes % (Manual) 9 % (20-45) L Monocytes % (Manual) 2 % (1-10) Eosinophils % (Manual) 1 % (0-3) Basophils % (Manual) 0 % (0-2) Band Neutrophils 3 % (0-8) Platelet Estimate Adequate Platelet Morphology Normal Hypochromasia 1+ Poikilocytosis Occasional Anisocytosis 1+ Target Cells Occasional Sodium Level 153 mEQ/L (135-145) H Potassium Level 3.9 mEQ/L (3.4-4.9) Chloride Level 122 mEQ/L (98-107) H Carbon Dioxide Level 20 mEQ/L (20-30) Anion Gap 11 (5-15) Blood Urea Nitrogen 28 mg/dL (7-23) H Creatinine 0.6 mg/dL (0.5-0.9) Estimat Glomerular Filtration Rate mL/min (>60) Glucose Level 123 mg/dL (74-106) H Calcium Level 6.8 mg/dL (8.6-10.2) #L Magnesium Level 1.4 mg/dL (1.7-2.5) L Microbiology Date/Time Source Procedure Growth Status 12/22/16 16:15 Stool Clostridium difficile Toxin Assay - Final Complete Intake and Output 12/22/16 12/23/16 19:00 07:00 Intake Total 585 ml 255 ml Output Total 152 ml 550 ml Balance 433 ml -295 ml Intake Free Water 150 ml 150 ml IV Total 55 ml Tube Feeding 380 ml 105 ml Output Urine Total 150 ml 550 ml Stool Total 2 ml Objective General Appearance: less responsive, lethargic, thin EENT: PERRL/ anicteric Neck: non-tender, No JVD. Cardiovascular: normal peripheral pulses, no murmur,, irregularly irregular Respiratory/Chest: chest wall non-tender, poor inspiratory affords, decrease air at bases. Abdomen: normal bowel sounds, non tender, soft, + PEG, +rectal tube : Randolph cath Extremities: no edema, No C/C non-tender Skin: normal pigmentation, warm/dry Back: sacral wound F Assessment/Plan Assessment/Plan Leukocytosis improving Sepsis, SP wound infection , osteomyelitis sacrum Wnd Cx : Ecoli , Citrobacter, StrpV SP Debridement Probable UTI EColi +ve Blood cx : CoNS SP Rx ALOC Diarrhea Ro C Diff Severe protien / calori malnutrition SP PEG HTN DM PVD CAD Paroxysmal atrial fibrillation. History of right lower extremity DVT. Anemia PLAN: Abx: Invanz Monitor CBC. Monitor BMP. wound care Titi Cruz MD Dec 23, 2016 19:50
--- NOTE | 2016-12-23 23:33 | Pulmonology Progress Note ---
Assessment/Plan Problems: (1) Sepsis (2) Acute encephalopathy (3) Renal failure (4) UTI (urinary tract infection) (5) Decubitus ulcer of sacral area (6) Anemia (7) Alzheimer's dementia Assessment/Plan s/p debridement NG tube insertion was not successful continue antibiotics check cultures check electrolytes iv fluids check Ca daily wbc decreasing dvt prophylaxis Subjective ROS Limited/Unobtainable: Yes Constitutional: Reports: anorexia, fatigue Genitourinary: Reports: dysuria, frequency, hematuria, nocturia, urgency Neurologic: Reports: confusion, weakness Skin: Reports: rash, ulcer Allergies: Coded Allergies: NO KNOWN ALLERGIES (Unverified Allergy, Unknown, 09/05/15) Objective Last 24 Hour Vital Signs Date Time Temp Pulse Resp B/P Pulse Ox O2 Delivery O2 Flow Rate FiO2 12/23/16 21:20 71 98/48 12/23/16 20:11 64 100/52 12/23/16 19:57 98.2 64 20 100/52 97 Room Air 12/23/16 19:01 96 Nasal Cannula 4.0 36 12/23/16 19:01 Nasal Cannula 4.0 36 12/23/16 16:28 98.4 12/23/16 16:06 96.1 65 22 110/46 99 Nasal Cannula 2.5 12/23/16 12:36 97.0 80 18 112/76 99 Nasal Cannula 3.0 12/23/16 08:55 85 110/74 12/23/16 08:20 99 Nasal Cannula 4.0 36 12/23/16 08:20 Nasal Cannula 4.0 36 12/23/16 08:11 97.7 85 19 110/74 100 Nasal Cannula 3.0 12/23/16 04:00 98.2 67 18 116/64 100 Nasal Cannula 12/23/16 00:28 98.1 12/23/16 00:00 98.1 70 20 122/71 100 Nasal Cannula Intake and Output 12/22/16 12/23/16 19:00 07:00 Intake Total 585 ml 255 ml Output Total 152 ml 550 ml Balance 433 ml -295 ml Intake Free Water 150 ml 150 ml IV Total 55 ml Tube Feeding 380 ml 105 ml Output Urine Total 150 ml 550 ml Stool Total 2 ml General Appearance: no acute distress HEENT: normocephalic, atraumatic, PERRL Respiratory/Chest: chest wall non-tender, decreased breath sounds, accessory muscle use Breasts: no masses Cardiovascular: tachycardia, arrhythmia, irregularly irregular Abdomen: normal bowel sounds, soft, non tender, no organomegaly Genitourinary: normal external genitalia Extremities: no cyanosis Skin: rash, lesions, ulcers Neurologic/Psychiatric: 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 grossly normal, responsive, disoriented Microbiology Date/Time Source Procedure Growth Status 12/22/16 16:15 Stool Clostridium difficile Toxin Assay - Final Complete Laboratory Tests 12/23/16 04:00: White Blood Count 15.9H, Red Blood Count 2.86L, Hemoglobin 8.1L, Hematocrit 24.3L, Mean Corpuscular Volume 85, Mean Corpuscular Hemoglobin 28.5, Mean Corpuscular Hemoglobin Concent 33.5, Red Cell Distribution Width 17.5H, Platelet Count 176, Mean Platelet Volume 6.7, Neutrophils (%) (Auto) , Lymphocytes (%) (Auto) , Monocytes (%) (Auto) , Eosinophils (%) (Auto) , Basophils (%) (Auto) , Differential Total Cells Counted 100, Neutrophils % ( Manual) 85H, Lymphocytes % (Manual) 9L, Monocytes % (Manual) 2, Eosinophils % ( Manual) 1, Basophils % (Manual) 0, Band Neutrophils 3, Platelet Estimate Adequate, Platelet Morphology Normal, Hypochromasia 1+, Poikilocytosis Occasional, Anisocytosis 1+, Target Cells Occasional, Sodium Level 153H, Potassium Level 3.9, Chloride Level 122H, Carbon Dioxide Level 20, Anion Gap 11 , Blood Urea Nitrogen 28H, Creatinine 0.6, Estimat Glomerular Filtration Rate , Glucose Level 123H, Calcium Level 6.8#L, Magnesium Level 1.4L Current Medications Medications (Trade) Dose Ordered Sig/David Route PRN Reason Start Time Stop Time Status Last Admin Dose Admin Acetaminophen (Tylenol) 650 mg Q4H PRN ORAL fever 12/15/16 09:45 01/14/17 09:44 Dextrose (Dextrose 50%) STAT PRN IV Hypoglycemia 12/15/16 11:00 01/14/17 10:59 12/18/16 21:19 Ertapenem/Sodium Chloride (INVanz/Sodium Chloride) 55 ml @ 110 mls/hr Q24H IVPB 12/19/16 12:00 01/21/17 23:59 12/23/16 11:48 Heparin Sodium (Porcine) (Heparin 5000 units/ml) 5,000 units EVERY 12 HOURS SUBQ 12/15/16 11:00 01/14/17 10:59 12/23/16 21:28 Insulin Aspart (NovoLOG) BEFORE MEALS AND HS SUBQ 12/15/16 11:30 01/14/17 11:29 12/23/16 17:45 Metoprolol Tartrate (Lopressor) 25 mg Q12HR PEG 12/19/16 21:00 01/18/17 20:59 12/23/16 08:55 Morphine Sulfate (Morphine Sulfate) 2 mg Q4H PRN IVP For Pain 12/22/16 13:45 12/29/16 13:44 12/23/16 17:44 Nitroglycerin (Ntg) 0.4 mg Q5M PRN SL Prn Chest Pain 12/15/16 09:45 01/14/17 09:44 Ondansetron HCl 4 mg 4 mg Q6H PRN IVP Nausea & Vomiting 12/15/16 11:45 01/14/17 11:44 Sodium Hypochlorite (Dakin's Half Strength) 1 applic DAILY TOPIC 12/15/16 11:00 01/14/17 10:59 12/23/16 08:59 EVENS CASTELLON Dec 23, 2016 23:33
[2016-12-24] VITALS: BP 95/51
[2016-12-24 04:00] VITALS: BP 102/58
[2016-12-24] MEDS: NovoLOG Insulin Flexpen SUBQ SCH ×5 (06:03→21:30)
[2016-12-24 07:30] LABS: MEAN CORPUSCULAR HEMOGLOBIN 28.6 PG (27.0-31.0); MEAN CORPUSCULAR HGB CONC 33.6 G/DL (32.0-36.0); MEAN CORPUSCULAR VOLUME 85 FL (80-99); MEAN PLATELET VOLUME 6.9 FL (6.5-10.1); PLATELET COUNT 208 K/UL (150-450); RED BLOOD COUNT 2.73 M/UL (4.20-5.40); RED CELL DISTRIBUTION WIDTH 18.4 % (11.6-14.8)
[2016-12-24 07:39] LABS: ALANINE AMINOTRANSFERASE 17 U/L (3-33); ALBUMIN/GLOBULIN RATIO 0.6 (1.0-2.7); ANION GAP 13 (5-15); ASPARTATE AMINO TRANSFERASE 46 U/L (5-40); CARBON DIOXIDE 24 mEQ/L (20-30); CHLORIDE 113 mEQ/L (98-107); CREATININE 0.8 mg/dL (0.5-0.9); CRP QUANT 9.8 mg/dL (< 0.5); HEMOLYSIS 2; MAGNESIUM 2.5 mg/dL (1.7-2.5); PHOSPHORUS 1.2 mg/dL (2.5-4.8); POTASSIUM 4.6 mEQ/L (3.4-4.9); SODIUM 150 mEQ/L (135-145); TOTAL PROTEIN 4.9 g/dL (6.6-8.7); URIC ACID 6.6 mg/dL (3.0-7.5)
[2016-12-24 08:21] VITALS: BP 120/69
[2016-12-24] MEDS: Metoprolol 25mg tab PEG SCH ×2 (08:50→21:30)
[2016-12-24] MEDS: Heparin 5000 units/ml inj SUBQ SCH ×2 (08:52→21:41)
[2016-12-24] MEDS: Dakin's 0.25% (Half Strength) 16oz TOPIC SCH (08:56)
[2016-12-24 10:19] LABS: ANISOCYTOSIS 1+; BAND NEUTROPHILS % (MANUAL) 0 % (0-8); BASOPHILS % (MANUAL) 0 % (0-2); EOSINOPHILS % (MANUAL) 1 % (0-3); HYPOCHROMASIA 1+; LYMPHOCYTES % (MANUAL) 7 % (20-45); NEUTROPHILS % (MANUAL) 91 % (45-75); PLATELET ESTIMATE ADEQUATE; PLATELET MORPHOLOGY NORMAL; TOTAL CELLS COUNTED 100
--- NOTE | 2016-12-24 12:20 | General Progress Note ---
Assessment/Plan Status: unchanged Assessment/Plan status: Acute renal failure- mainly prerenal improved HyperCalcemia- being treated Leukocytosis / sepsis, on antibiotics other conditions mentioned in PH: -History of anemia. -Hypertension. -Diabetes type 2. -History of coronary artery disease. -Renal failure. -Paroxysmal atrial fibrillation. -History of right lower extremity deep venous thrombosis. -Arthritis. -Alzheimer's dementia. -Pacemaker in situ. Plan: Has PEG One liter of D5w for high Na Phos supplement IV today Phos and K and Mag supplement as needed- Monitor renal parameters- per orders- Per GI and ID discussed with RN Subjective ROS Limited/Unobtainable: Yes Allergies: Coded Allergies: NO KNOWN ALLERGIES (Unverified Allergy, Unknown, 09/05/15) Objective Last 24 Hour Vital Signs Date Time Temp Pulse Resp B/P Pulse Ox O2 Delivery O2 Flow Rate FiO2 12/24/16 08:50 74 120/69 12/24/16 08:21 97.3 74 19 120/69 100 Nasal Cannula 3.0 12/24/16 04:00 100.0 65 20 102/58 95 Nasal Cannula 2.5 12/24/16 00:00 98.1 68 20 95/51 97 Nasal Cannula 2.5 12/23/16 21:20 71 98/48 12/23/16 20:11 64 100/52 12/23/16 19:57 98.2 64 20 100/52 97 Room Air 12/23/16 19:01 96 Nasal Cannula 4.0 36 12/23/16 19:01 Nasal Cannula 4.0 36 12/23/16 16:28 98.4 12/23/16 16:06 96.1 65 22 110/46 99 Nasal Cannula 2.5 12/23/16 12:36 97.0 80 18 112/76 99 Nasal Cannula 3.0 Intake and Output 12/23/16 12/24/16 19:00 07:00 Intake Total 1375 ml 260 ml Output Total 250 ml Balance 1125 ml 260 ml Intake Free Water 210 ml IV Total 1060 ml 150 ml Tube Feeding 105 ml 110 ml Output Urine Total 250 ml # Voids 2 Laboratory Tests 12/24/16 06:00: White Blood Count 14.0H, Red Blood Count 2.73L, Hemoglobin 7.8L, Hematocrit 23.3L, Mean Corpuscular Volume 85, Mean Corpuscular Hemoglobin 28.6, Mean Corpuscular Hemoglobin Concent 33.6, Red Cell Distribution Width 18.4H, Platelet Count 208, Mean Platelet Volume 6.9, Neutrophils (%) (Auto) , Lymphocytes (%) (Auto) , Monocytes (%) (Auto) , Eosinophils (%) (Auto) , Basophils (%) (Auto) , Differential Total Cells Counted 100, Neutrophils % ( Manual) 91H, Lymphocytes % (Manual) 7L, Monocytes % (Manual) 1, Eosinophils % ( Manual) 1, Basophils % (Manual) 0, Band Neutrophils 0, Platelet Estimate Adequate, Platelet Morphology Normal, Hypochromasia 1+, Anisocytosis 1+, Sodium Level 150H, Potassium Level 4.6, Chloride Level 113H, Carbon Dioxide Level 24, Anion Gap 13, Blood Urea Nitrogen 36H, Creatinine 0.8, Estimat Glomerular Filtration Rate , Glucose Level 118H, Uric Acid 6.6, Calcium Level 8.0L, Phosphorus Level 1.2L, Magnesium Level 2.5, Total Bilirubin 0.3, Aspartate Amino Transf (AST/SGOT) 46H, Alanine Aminotransferase (ALT/SGPT) 17, Alkaline Phosphatase 90, C-Reactive Protein, Quantitative 9.8H, Pro-B-Type Natriuretic Peptide 65245T, Total Protein 4.9L, Albumin 1.9L, Globulin 3.0, Albumin/ Globulin Ratio 0.6L Height (Feet): 5 Height (Inches): 3.00 Weight (Pounds): 140 General Appearance: no apparent distress, alert Cardiovascular: normal rate Respiratory/Chest: decreased breath sounds Abdomen: soft Objective other PE not changed EARNEST CADET Dec 24, 2016 12:20
[2016-12-24] MEDS ORDERED: Sodium Phosphate 15 MM in NS 275 ML IVPB ONE (12:30)
[2016-12-24 12:40] VITALS: BP 119/69
[2016-12-24] MEDS: Ertapenem 1 GM in NS 55 ML IVPB SCH (12:56)
[2016-12-24] MEDS: Phospha 250 Neutral tab ORAL SCH ×2 (14:02→17:54)
[2016-12-24] MEDS: Morphine Sulfate 2mg/ml Inj IVP PRN ×2 (14:02→21:31)
--- NOTE | 2016-12-24 14:39 | Infectious Diseases Prog Note ---
Assessment/Plan Assessment/Plan A: The patient is an 86-year-old female Low grade fever x 1 Leukocytosis improving Sepsis, SP wound infection , osteomyelitis sacrum Wnd Cx : Ecoli , Citrobacter, StrpV SP Debridement Probable UTI EColi +ve Blood cx : CoNS SP Rx ALOC Diarrhea : Martin SP PEG HTN DM PVD CAD Paroxysmal atrial fibrillation. History of right lower extremity DVT. Anemia PLAN: continue the patient on Invanz d# 7 / 35 ( SP IV vancomycin. and Zosyn ---> Rocephin d# 7 ) Monitor CBC Monitor BMP Subjective Constitutional: Denies: anorexia, chills, drenching sweats, fatigue, fever, no symptoms, other Allergies: Coded Allergies: NO KNOWN ALLERGIES (Unverified Allergy, Unknown, 09/05/15) Subjective Diarrhea Objective Vital Signs Last 24 Hour Vital Signs Date Time Temp Pulse Resp B/P Pulse Ox O2 Delivery O2 Flow Rate FiO2 12/24/16 12:40 96.9 70 18 119/69 100 Nasal Cannula 3.0 12/24/16 08:50 74 120/69 12/24/16 08:21 97.3 74 19 120/69 100 Nasal Cannula 3.0 12/24/16 04:00 100.0 65 20 102/58 95 Nasal Cannula 2.5 12/24/16 00:00 98.1 68 20 95/51 97 Nasal Cannula 2.5 12/23/16 21:20 71 98/48 12/23/16 20:11 64 100/52 12/23/16 19:57 98.2 64 20 100/52 97 Room Air 12/23/16 19:01 96 Nasal Cannula 4.0 36 12/23/16 19:01 Nasal Cannula 4.0 36 12/23/16 16:28 98.4 12/23/16 16:06 96.1 65 22 110/46 99 Nasal Cannula 2.5 Height (Feet): 5 Height (Inches): 3.00 Weight (Pounds): 140 HEENT: anicteric Respiratory/Chest: lungs clear Cardiovascular: normal rate Abdomen: no organomegaly Microbiology Date/Time Source Procedure Growth Status 12/22/16 16:15 Stool Clostridium difficile Toxin Assay - Final Complete Laboratory Tests Test 12/24/16 06:00 White Blood Count 14.0 K/UL (4.8-10.8) H Red Blood Count 2.73 M/UL (4.20-5.40) L Hemoglobin 7.8 G/DL (12.0-16.0) L Hematocrit 23.3 % (37.0-47.0) L Mean Corpuscular Volume 85 FL (80-99) Mean Corpuscular Hemoglobin 28.6 PG (27.0-31.0) Mean Corpuscular Hemoglobin Concent 33.6 G/DL (32.0-36.0) Red Cell Distribution Width 18.4 % (11.6-14.8) H Platelet Count 208 K/UL (150-450) Mean Platelet Volume 6.9 FL (6.5-10.1) Neutrophils (%) (Auto) % (45.0-75.0) Lymphocytes (%) (Auto) % (20.0-45.0) Monocytes (%) (Auto) % (1.0-10.0) Eosinophils (%) (Auto) % (0.0-3.0) Basophils (%) (Auto) % (0.0-2.0) Differential Total Cells Counted 100 Neutrophils % (Manual) 91 % (45-75) H Lymphocytes % (Manual) 7 % (20-45) L Monocytes % (Manual) 1 % (1-10) Eosinophils % (Manual) 1 % (0-3) Basophils % (Manual) 0 % (0-2) Band Neutrophils 0 % (0-8) Platelet Estimate Adequate Platelet Morphology Normal Hypochromasia 1+ Anisocytosis 1+ Sodium Level 150 mEQ/L (135-145) H Potassium Level 4.6 mEQ/L (3.4-4.9) Chloride Level 113 mEQ/L (98-107) H Carbon Dioxide Level 24 mEQ/L (20-30) Anion Gap 13 (5-15) Blood Urea Nitrogen 36 mg/dL (7-23) H Creatinine 0.8 mg/dL (0.5-0.9) Estimat Glomerular Filtration Rate mL/min (>60) Glucose Level 118 mg/dL (74-106) H Uric Acid 6.6 mg/dL (3.0-7.5) Calcium Level 8.0 mg/dL (8.6-10.2) L Phosphorus Level 1.2 mg/dL (2.5-4.8) L Magnesium Level 2.5 mg/dL (1.7-2.5) Total Bilirubin 0.3 mg/dL (0.0-1.2) Aspartate Amino Transf (AST/SGOT) 46 U/L (5-40) H Alanine Aminotransferase (ALT/SGPT) 17 U/L (3-33) Alkaline Phosphatase 90 U/L (35-104) C-Reactive Protein, Quantitative 9.8 mg/dL (< 0.5) H Pro-B-Type Natriuretic Peptide 58536 pg/mL (0-450) H Total Protein 4.9 g/dL (6.6-8.7) L Albumin 1.9 g/dL (3.5-5.2) L Globulin 3.0 g/dL Albumin/Globulin Ratio 0.6 (1.0-2.7) L Current Medications Medications (Trade) Dose Ordered Sig/David Route PRN Reason Start Time Stop Time Status Last Admin Dose Admin Acetaminophen (Tylenol) 650 mg Q4H PRN ORAL fever 12/15/16 09:45 01/14/17 09:44 Dextrose (D5W 1000ml) 1,000 ml @ 75 mls/hr [id number] IV 12/24/16 12:45 12/25/16 02:04 12/24/16 13:00 Dextrose (Dextrose 50%) STAT PRN IV Hypoglycemia 12/15/16 11:00 01/14/17 10:59 12/18/16 21:19 Ertapenem/Sodium Chloride (INVanz/Sodium Chloride) 55 ml @ 110 mls/hr Q24H IVPB 12/19/16 12:00 01/21/17 23:59 12/24/16 12:56 Heparin Sodium (Porcine) (Heparin 5000 units/ml) 5,000 units EVERY 12 HOURS SUBQ 12/15/16 11:00 01/14/17 10:59 12/24/16 08:52 Insulin Aspart (NovoLOG) BEFORE MEALS AND HS SUBQ 12/15/16 11:30 01/14/17 11:29 12/24/16 06:03 Metoprolol Tartrate (Lopressor) 25 mg Q12HR PEG 12/19/16 21:00 01/18/17 20:59 12/24/16 08:50 Morphine Sulfate (Morphine Sulfate) 2 mg Q4H PRN IVP For Pain 12/22/16 13:45 12/29/16 13:44 12/24/16 14:02 Nitroglycerin (Ntg) 0.4 mg Q5M PRN SL Prn Chest Pain 12/15/16 09:45 01/14/17 09:44 Ondansetron HCl 4 mg 4 mg Q6H PRN IVP Nausea & Vomiting 12/15/16 11:45 01/14/17 11:44 Phosphorus 250 mg 250 mg THREE TIMES A DAY ORAL 12/24/16 13:00 12/27/16 13:00 12/24/16 14:02 Sodium Hypochlorite (Dakin's Half Strength) 1 applic DAILY TOPIC 12/15/16 11:00 01/14/17 10:59 12/24/16 08:56 Sodium Phosphate 15 mm/Sodium Chloride 280 ml @ 70.273 mls/ hr ONCE ONCE IVPB 12/24/16 12:30 12/24/16 16:29 12/24/16 13:46 RADHA BAILON M.D. Dec 24, 2016 14:39
--- NOTE | 2016-12-24 15:09 | Internal Med Progress Note ---
Subjective Physician Name Titi Cruz Attending Physician Titi Cruz MD Current Medications Medications (Trade) Dose Ordered Sig/David Route PRN Reason Start Time Stop Time Status Last Admin Dose Admin Acetaminophen (Tylenol) 650 mg Q4H PRN ORAL fever 12/15/16 09:45 01/14/17 09:44 Dextrose (D5W 1000ml) 1,000 ml @ 75 mls/hr [id number] IV 12/24/16 12:45 12/25/16 02:04 12/24/16 13:00 Dextrose (Dextrose 50%) STAT PRN IV Hypoglycemia 12/15/16 11:00 01/14/17 10:59 12/18/16 21:19 Ertapenem/Sodium Chloride (INVanz/Sodium Chloride) 55 ml @ 110 mls/hr Q24H IVPB 12/19/16 12:00 01/21/17 23:59 12/24/16 12:56 Heparin Sodium (Porcine) (Heparin 5000 units/ml) 5,000 units EVERY 12 HOURS SUBQ 12/15/16 11:00 01/14/17 10:59 12/24/16 08:52 Insulin Aspart (NovoLOG) BEFORE MEALS AND HS SUBQ 12/15/16 11:30 01/14/17 11:29 12/24/16 06:03 Metoprolol Tartrate (Lopressor) 25 mg Q12HR PEG 12/19/16 21:00 01/18/17 20:59 12/24/16 08:50 Morphine Sulfate (Morphine Sulfate) 2 mg Q4H PRN IVP For Pain 12/22/16 13:45 12/29/16 13:44 12/24/16 14:02 Nitroglycerin (Ntg) 0.4 mg Q5M PRN SL Prn Chest Pain 12/15/16 09:45 01/14/17 09:44 Ondansetron HCl 4 mg 4 mg Q6H PRN IVP Nausea & Vomiting 12/15/16 11:45 01/14/17 11:44 Phosphorus 250 mg 250 mg THREE TIMES A DAY ORAL 12/24/16 13:00 12/27/16 13:00 12/24/16 14:02 Sodium Hypochlorite (Dakin's Half Strength) 1 applic DAILY TOPIC 12/15/16 11:00 01/14/17 10:59 12/24/16 08:56 Sodium Phosphate 15 mm/Sodium Chloride 280 ml @ 70.273 mls/ hr ONCE ONCE IVPB 12/24/16 12:30 12/24/16 16:29 12/24/16 13:46 Allergies: Coded Allergies: NO KNOWN ALLERGIES (Unverified Allergy, Unknown, 09/05/15) Subjective very weak, open eyes, less responsive, daughter at bedside, Hgb: 7.8 Objective Last Vital Signs Date Time Temp Pulse Resp B/P Pulse Ox O2 Delivery O2 Flow Rate FiO2 12/24/16 14:32 96.9 12/24/16 12:40 70 18 119/69 100 Nasal Cannula 3.0 12/23/16 19:01 36 Laboratory Tests Test 12/24/16 06:00 White Blood Count 14.0 K/UL (4.8-10.8) H Red Blood Count 2.73 M/UL (4.20-5.40) L Hemoglobin 7.8 G/DL (12.0-16.0) L Hematocrit 23.3 % (37.0-47.0) L Mean Corpuscular Volume 85 FL (80-99) Mean Corpuscular Hemoglobin 28.6 PG (27.0-31.0) Mean Corpuscular Hemoglobin Concent 33.6 G/DL (32.0-36.0) Red Cell Distribution Width 18.4 % (11.6-14.8) H Platelet Count 208 K/UL (150-450) Mean Platelet Volume 6.9 FL (6.5-10.1) Neutrophils (%) (Auto) % (45.0-75.0) Lymphocytes (%) (Auto) % (20.0-45.0) Monocytes (%) (Auto) % (1.0-10.0) Eosinophils (%) (Auto) % (0.0-3.0) Basophils (%) (Auto) % (0.0-2.0) Differential Total Cells Counted 100 Neutrophils % (Manual) 91 % (45-75) H Lymphocytes % (Manual) 7 % (20-45) L Monocytes % (Manual) 1 % (1-10) Eosinophils % (Manual) 1 % (0-3) Basophils % (Manual) 0 % (0-2) Band Neutrophils 0 % (0-8) Platelet Estimate Adequate Platelet Morphology Normal Hypochromasia 1+ Anisocytosis 1+ Sodium Level 150 mEQ/L (135-145) H Potassium Level 4.6 mEQ/L (3.4-4.9) Chloride Level 113 mEQ/L (98-107) H Carbon Dioxide Level 24 mEQ/L (20-30) Anion Gap 13 (5-15) Blood Urea Nitrogen 36 mg/dL (7-23) H Creatinine 0.8 mg/dL (0.5-0.9) Estimat Glomerular Filtration Rate mL/min (>60) Glucose Level 118 mg/dL (74-106) H Uric Acid 6.6 mg/dL (3.0-7.5) Calcium Level 8.0 mg/dL (8.6-10.2) L Phosphorus Level 1.2 mg/dL (2.5-4.8) L Magnesium Level 2.5 mg/dL (1.7-2.5) Total Bilirubin 0.3 mg/dL (0.0-1.2) Aspartate Amino Transf (AST/SGOT) 46 U/L (5-40) H Alanine Aminotransferase (ALT/SGPT) 17 U/L (3-33) Alkaline Phosphatase 90 U/L (35-104) C-Reactive Protein, Quantitative 9.8 mg/dL (< 0.5) H Pro-B-Type Natriuretic Peptide 83248 pg/mL (0-450) H Total Protein 4.9 g/dL (6.6-8.7) L Albumin 1.9 g/dL (3.5-5.2) L Globulin 3.0 g/dL Albumin/Globulin Ratio 0.6 (1.0-2.7) L Microbiology Date/Time Source Procedure Growth Status 12/22/16 16:15 Stool Clostridium difficile Toxin Assay - Final Complete Intake and Output 12/23/16 12/24/16 19:00 07:00 Intake Total 1375 ml 260 ml Output Total 250 ml Balance 1125 ml 260 ml Intake Free Water 210 ml IV Total 1060 ml 150 ml Tube Feeding 105 ml 110 ml Output Urine Total 250 ml # Voids 2 Objective General Appearance: less responsive, unable to open eyes, thin EENT: PERRL/ anicteric Neck: non-tender, No JVD. Cardiovascular: normal peripheral pulses, no murmur,, irregularly irregular Respiratory/Chest: chest wall non-tender, poor inspiratory affords, decrease air at bases. Abdomen: normal bowel sounds, non tender, soft, + PEG, +rectal tube : Randolph cath Extremities: no edema, No C/C non-tender Skin: normal pigmentation, warm/dry Back: sacral wound Assessment/Plan Assessment/Plan Leukocytosis improving Sepsis, SP wound infection , osteomyelitis sacrum Wnd Cx : Ecoli , Citrobacter, StrpV SP Debridement Probable UTI EColi +ve Blood cx : CoNS SP Rx ALOC Diarrhea Ro C Diff Severe protein / calori malnutrition SP PEG HTN DM PVD CAD Paroxysmal atrial fibrillation. History of right lower extremity DVT. Anemia PLAN: Abx: Invanz Monitor Labs and Cultures Discuss with daughter for SNF Placement possible on Monday. wound care Titi Cruz MD Dec 24, 2016 15:09
--- NOTE | 2016-12-24 15:21 | Cardiac Electrophysiology PN ---
Assessment/Plan Assessment/Plan 1. Status post Biotronik single chamber pacemaker implantation with NL function.. 2. Chronic atrial fibrillation. Continue metoprolol 25 mg b.i.d. and keep off anticoagulation for bleeding and Hb 6 range. 3. Hypertension. On metoprolol 25 mg b.i.d. 4. Sacral decubitus. Status post excision and debridement of sacral decubitus by Dr. Steinberg.On IV ABx. 5. History of anemia. 6. Azotemia. 7. Diastolic dysfunction. BNP of [place] [address]. Start Lasix 40 iv daily. 8. Dysphagia.S/P PEG 12/19/16 DW RN at bedside. Subjective Subjective Nonverbal. No events overnight. On IV abx and PEG feeding. Objective Last 24 Hour Vital Signs Date Time Temp Pulse Resp B/P Pulse Ox O2 Delivery O2 Flow Rate FiO2 12/24/16 14:32 96.9 12/24/16 12:40 96.9 70 18 119/69 100 Nasal Cannula 3.0 12/24/16 08:50 74 120/69 12/24/16 08:21 97.3 74 19 120/69 100 Nasal Cannula 3.0 12/24/16 04:00 100.0 65 20 102/58 95 Nasal Cannula 2.5 12/24/16 00:00 98.1 68 20 95/51 97 Nasal Cannula 2.5 12/23/16 21:20 71 98/48 12/23/16 20:11 64 100/52 12/23/16 19:57 98.2 64 20 100/52 97 Room Air 12/23/16 19:01 96 Nasal Cannula 4.0 36 12/23/16 19:01 Nasal Cannula 4.0 36 12/23/16 16:28 98.4 12/23/16 16:06 96.1 65 22 110/46 99 Nasal Cannula 2.5 Intake and Output 12/23/16 12/24/16 19:00 07:00 Intake Total 1375 ml 260 ml Output Total 250 ml Balance 1125 ml 260 ml Intake Free Water 210 ml IV Total 1060 ml 150 ml Tube Feeding 105 ml 110 ml Output Urine Total 250 ml # Voids 2 Laboratory Tests Test 12/24/16 06:00 White Blood Count 14.0 K/UL (4.8-10.8) H Red Blood Count 2.73 M/UL (4.20-5.40) L Hemoglobin 7.8 G/DL (12.0-16.0) L Hematocrit 23.3 % (37.0-47.0) L Mean Corpuscular Volume 85 FL (80-99) Mean Corpuscular Hemoglobin 28.6 PG (27.0-31.0) Mean Corpuscular Hemoglobin Concent 33.6 G/DL (32.0-36.0) Red Cell Distribution Width 18.4 % (11.6-14.8) H Platelet Count 208 K/UL (150-450) Mean Platelet Volume 6.9 FL (6.5-10.1) Neutrophils (%) (Auto) % (45.0-75.0) Lymphocytes (%) (Auto) % (20.0-45.0) Monocytes (%) (Auto) % (1.0-10.0) Eosinophils (%) (Auto) % (0.0-3.0) Basophils (%) (Auto) % (0.0-2.0) Differential Total Cells Counted 100 Neutrophils % (Manual) 91 % (45-75) H Lymphocytes % (Manual) 7 % (20-45) L Monocytes % (Manual) 1 % (1-10) Eosinophils % (Manual) 1 % (0-3) Basophils % (Manual) 0 % (0-2) Band Neutrophils 0 % (0-8) Platelet Estimate Adequate Platelet Morphology Normal Hypochromasia 1+ Anisocytosis 1+ Sodium Level 150 mEQ/L (135-145) H Potassium Level 4.6 mEQ/L (3.4-4.9) Chloride Level 113 mEQ/L (98-107) H Carbon Dioxide Level 24 mEQ/L (20-30) Anion Gap 13 (5-15) Blood Urea Nitrogen 36 mg/dL (7-23) H Creatinine 0.8 mg/dL (0.5-0.9) Estimat Glomerular Filtration Rate mL/min (>60) Glucose Level 118 mg/dL (74-106) H Uric Acid 6.6 mg/dL (3.0-7.5) Calcium Level 8.0 mg/dL (8.6-10.2) L Phosphorus Level 1.2 mg/dL (2.5-4.8) L Magnesium Level 2.5 mg/dL (1.7-2.5) Total Bilirubin 0.3 mg/dL (0.0-1.2) Aspartate Amino Transf (AST/SGOT) 46 U/L (5-40) H Alanine Aminotransferase (ALT/SGPT) 17 U/L (3-33) Alkaline Phosphatase 90 U/L (35-104) C-Reactive Protein, Quantitative 9.8 mg/dL (< 0.5) H Pro-B-Type Natriuretic Peptide 49905 pg/mL (0-450) H Total Protein 4.9 g/dL (6.6-8.7) L Albumin 1.9 g/dL (3.5-5.2) L Globulin 3.0 g/dL Albumin/Globulin Ratio 0.6 (1.0-2.7) L Microbiology Date/Time Source Procedure Growth Status 12/22/16 16:15 Stool Clostridium difficile Toxin Assay - Final Complete Objective HEAD AND NECK: Shows no JVD LUNGS: Clear. CARDIOVASCULAR: Regular S1 and S2 with no gallop or murmur. Pacemaker is at left subclavian intact. ABDOMEN: Soft.PEG in place EXTREMITIES: Large sacral decubitus status post surgery.No edema STAR ROA Dec 24, 2016 15:21
[2016-12-24 16:00] VITALS: BP 140/65
[2016-12-24 20:00] VITALS: BP 135/77
[2016-12-24] MEDS ORDERED: NS 275ml ONE (21:57)
--- NOTE | 2016-12-24 23:53 | Pulmonology Progress Note ---
Assessment/Plan Problems: (1) Sepsis (2) Acute encephalopathy (3) Renal failure (4) UTI (urinary tract infection) (5) Decubitus ulcer of sacral area (6) Anemia (7) Alzheimer's dementia Assessment/Plan s/p debridement NG tube insertion was not successful continue antibiotics check cultures check electrolytes iv fluids check Ca daily wbc decreasing dvt prophylaxis Subjective ROS Limited/Unobtainable: Yes Constitutional: Reports: anorexia, fatigue Neurologic: Reports: confusion, weakness Skin: Reports: rash, ulcer Allergies: Coded Allergies: NO KNOWN ALLERGIES (Unverified Allergy, Unknown, 09/05/15) Objective Last 24 Hour Vital Signs Date Time Temp Pulse Resp B/P Pulse Ox O2 Delivery O2 Flow Rate FiO2 12/24/16 21:30 62 135/77 12/24/16 16:00 97.7 71 17 140/65 94 Nasal Cannula 2.0 12/24/16 14:32 96.9 12/24/16 12:40 96.9 70 18 119/69 100 Nasal Cannula 3.0 12/24/16 08:50 74 120/69 12/24/16 08:21 97.3 74 19 120/69 100 Nasal Cannula 3.0 12/24/16 04:00 100.0 65 20 102/58 95 Nasal Cannula 2.5 12/24/16 00:00 98.1 68 20 95/51 97 Nasal Cannula 2.5 Intake and Output 12/23/16 12/24/16 19:00 07:00 Intake Total 1375 ml 260 ml Output Total 250 ml Balance 1125 ml 260 ml Intake Free Water 210 ml IV Total 1060 ml 150 ml Tube Feeding 105 ml 110 ml Output Urine Total 250 ml # Voids 2 General Appearance: no acute distress HEENT: normocephalic, atraumatic, PERRL Respiratory/Chest: chest wall non-tender, decreased breath sounds, accessory muscle use Breasts: no masses Cardiovascular: normal peripheral pulses, normal rate, regular rhythm Abdomen: normal bowel sounds, soft, non tender, no organomegaly Genitourinary: normal external genitalia Extremities: no cyanosis Skin: rash, lesions Neurologic/Psychiatric: vice president process II-XII grossly normal, responsive, disoriented Microbiology Date/Time Source Procedure Growth Status 12/22/16 16:15 Stool Clostridium difficile Toxin Assay - Final Complete Laboratory Tests 12/24/16 06:00: White Blood Count 14.0H, Red Blood Count 2.73L, Hemoglobin 7.8L, Hematocrit 23.3L, Mean Corpuscular Volume 85, Mean Corpuscular Hemoglobin 28.6, Mean Corpuscular Hemoglobin Concent 33.6, Red Cell Distribution Width 18.4H, Platelet Count 208, Mean Platelet Volume 6.9, Neutrophils (%) (Auto) , Lymphocytes (%) (Auto) , Monocytes (%) (Auto) , Eosinophils (%) (Auto) , Basophils (%) (Auto) , Differential Total Cells Counted 100, Neutrophils % ( Manual) 91H, Lymphocytes % (Manual) 7L, Monocytes % (Manual) 1, Eosinophils % ( Manual) 1, Basophils % (Manual) 0, Band Neutrophils 0, Platelet Estimate Adequate, Platelet Morphology Normal, Hypochromasia 1+, Anisocytosis 1+, Sodium Level 150H, Potassium Level 4.6, Chloride Level 113H, Carbon Dioxide Level 24, Anion Gap 13, Blood Urea Nitrogen 36H, Creatinine 0.8, Estimat Glomerular Filtration Rate , Glucose Level 118H, Uric Acid 6.6, Calcium Level 8.0L, Phosphorus Level 1.2L, Magnesium Level 2.5, Total Bilirubin 0.3, Aspartate Amino Transf (AST/SGOT) 46H, Alanine Aminotransferase (ALT/SGPT) 17, Alkaline Phosphatase 90, C-Reactive Protein, Quantitative 9.8H, Pro-B-Type Natriuretic Peptide [id number], Total Protein 4.9L, Albumin 1.9L, Globulin 3.0, Albumin/ Globulin Ratio 0.6L Current Medications Medications (Trade) Dose Ordered Sig/David Route PRN Reason Start Time Stop Time Status Last Admin Dose Admin Acetaminophen (Tylenol) 650 mg Q4H PRN ORAL fever 12/15/16 09:45 01/14/17 09:44 Dextrose (D5W 1000ml) 1,000 ml @ 75 mls/hr [id number] IV 12/24/16 12:45 12/25/16 02:04 12/24/16 13:00 Dextrose (Dextrose 50%) STAT PRN IV Hypoglycemia 12/15/16 11:00 01/14/17 10:59 12/18/16 21:19 Ertapenem/Sodium Chloride (INVanz/Sodium Chloride) 55 ml @ 110 mls/hr Q24H IVPB 12/19/16 12:00 01/21/17 23:59 12/24/16 12:56 Furosemide (Lasix) 40 mg DAILY IV 12/24/16 16:00 01/23/17 15:59 12/24/16 17:54 Heparin Sodium (Porcine) (Heparin 5000 units/ml) 5,000 units EVERY 12 HOURS SUBQ 12/15/16 11:00 01/14/17 10:59 12/24/16 21:41 Insulin Aspart (NovoLOG) BEFORE MEALS AND HS SUBQ 12/15/16 11:30 01/14/17 11:29 12/24/16 06:03 Metoprolol Tartrate (Lopressor) 25 mg Q12HR PEG 12/19/16 21:00 01/18/17 20:59 12/24/16 21:30 Morphine Sulfate (Morphine Sulfate) 2 mg Q4H PRN IVP For Pain 12/22/16 13:45 12/29/16 13:44 12/24/16 21:31 Nitroglycerin (Ntg) 0.4 mg Q5M PRN SL Prn Chest Pain 12/15/16 09:45 01/14/17 09:44 Ondansetron HCl 4 mg 4 mg Q6H PRN IVP Nausea & Vomiting 12/15/16 11:45 01/14/17 11:44 Phosphorus 250 mg 250 mg THREE TIMES A DAY ORAL 12/24/16 13:00 12/27/16 13:00 12/24/16 17:54 Sodium Hypochlorite (Dakin's Half Strength) 1 applic DAILY TOPIC 12/15/16 11:00 01/14/17 10:59 12/24/16 08:56 EVENS CASTELLON Dec 24, 2016 23:53
[2016-12-25] VITALS: BP 151/79
[2016-12-25 04:00] VITALS: BP 119/72
[2016-12-25] MEDS: NovoLOG Insulin Flexpen SUBQ SCH ×4 (06:30→21:00)
[2016-12-25 07:51] LABS: BASOPHILS % (AUTO) 0.5 % (0.0-2.0); EOSINOPHILS % (AUTO) 0.6 % (0.0-3.0); LYMPHOCYTES % (AUTO) 11.5 % (20.0-45.0); MEAN CORPUSCULAR HEMOGLOBIN 28.5 PG (27.0-31.0); MEAN CORPUSCULAR HGB CONC 33.1 G/DL (32.0-36.0); MEAN CORPUSCULAR VOLUME 86 FL (80-99); MEAN PLATELET VOLUME 6.8 FL (6.5-10.1); MONOCYTES % (AUTO) 3.6 % (1.0-10.0); NEUTROPHILS % (AUTO) 83.9 % (45.0-75.0); PLATELET COUNT 220 K/UL (150-450); RED BLOOD COUNT 2.85 M/UL (4.20-5.40); RED CELL DISTRIBUTION WIDTH 19.1 % (11.6-14.8); WHITE BLOOD COUNT 11.5 K/UL (4.8-10.8)
[2016-12-25 08:33] LABS: ALANINE AMINOTRANSFERASE 22 U/L (3-33); ALBUMIN/GLOBULIN RATIO 0.5 (1.0-2.7); ANION GAP 12 (5-15); ASPARTATE AMINO TRANSFERASE 53 U/L (5-40); CARBON DIOXIDE 26 mEQ/L (20-30); CHLORIDE 113 mEQ/L (98-107); CREATININE 0.8 mg/dL (0.5-0.9); CRP QUANT 10.1 mg/dL (< 0.5); HEMOLYSIS 4; MAGNESIUM 2.5 mg/dL (1.7-2.5); PHOSPHORUS 3.4 mg/dL (2.5-4.8); POTASSIUM 4.4 mEQ/L (3.4-4.9); SODIUM 151 mEQ/L (135-145); URIC ACID 6.8 mg/dL (3.0-7.5)
[2016-12-25 08:50] VITALS: BP 130/73
[2016-12-25] MEDS: Phospha 250 Neutral tab ORAL SCH (09:35)
[2016-12-25] MEDS: Heparin 5000 units/ml inj SUBQ SCH ×2 (09:36→21:24)
[2016-12-25] MEDS: Metoprolol 25mg tab PEG SCH ×2 (09:50→21:20)
--- NOTE | 2016-12-25 10:26 | General Progress Note ---
Assessment/Plan Status: stable - from renal stand Assessment/Plan status: Acute renal failure- mainly prerenal improved HyperCalcemia- being treated Leukocytosis / sepsis, on antibiotics other conditions mentioned in PH: -History of anemia. -Hypertension. -Diabetes type 2. -History of coronary artery disease. -Renal failure. -Paroxysmal atrial fibrillation. -History of right lower extremity deep venous thrombosis. -Arthritis. -Alzheimer's dementia. -Pacemaker in situ. Plan: Has PEG Phos and K and Mag supplement as needed- Monitor renal parameters- per orders- Per GI and ID discussed with RN Subjective ROS Limited/Unobtainable: No Constitutional: Reports: malaise Allergies: Coded Allergies: NO KNOWN ALLERGIES (Unverified Allergy, Unknown, 09/05/15) Objective Last 24 Hour Vital Signs Date Time Temp Pulse Resp B/P Pulse Ox O2 Delivery O2 Flow Rate FiO2 12/25/16 09:50 75 123/70 12/25/16 08:50 96.6 71 19 130/73 100 Nasal Cannula 3.0 12/25/16 04:00 97.6 77 20 119/72 84 Nasal Cannula 2.5 12/25/16 00:00 97.7 70 20 151/79 97 Nasal Cannula 2.5 12/24/16 21:30 62 135/77 12/24/16 20:00 96.4 20 135/77 100 Nasal Cannula 2.5 12/24/16 16:00 97.7 71 17 140/65 94 Nasal Cannula 2.0 12/24/16 14:32 96.9 12/24/16 12:40 96.9 70 18 119/69 100 Nasal Cannula 3.0 Intake and Output 12/24/16 12/25/16 19:00 07:00 Intake Total 675.273 ml 135 ml Output Total 300 ml 1500 ml Balance 375.273 ml -1365 ml Intake Free Water 250 ml IV Total 245.273 ml Tube Feeding 180 ml 135 ml Output Urine Total 300 ml 1500 ml Laboratory Tests 12/25/16 06:45: White Blood Count 11.5H, Red Blood Count 2.85L, Hemoglobin 8.1L, Hematocrit 24.6L, Mean Corpuscular Volume 86, Mean Corpuscular Hemoglobin 28.5, Mean Corpuscular Hemoglobin Concent 33.1, Red Cell Distribution Width 19.1H, Platelet Count 220, Mean Platelet Volume 6.8, Neutrophils (%) (Auto) 83.9H, Lymphocytes (%) (Auto) 11.5L, Monocytes (%) (Auto) 3.6, Eosinophils (%) (Auto) 0.6, Basophils (%) (Auto) 0.5, Sodium Level 151H, Potassium Level 4.4, Chloride Level 113H, Carbon Dioxide Level 26, Anion Gap 12, Blood Urea Nitrogen 40H, Creatinine 0.8, Estimat Glomerular Filtration Rate , Glucose Level 93, Uric Acid 6.8, Calcium Level 8.0L, Phosphorus Level 3.4, Magnesium Level 2.5, Total Bilirubin 0.2, Aspartate Amino Transf (AST/SGOT) 53H, Alanine Aminotransferase ( ALT/SGPT) 22, Alkaline Phosphatase 90, C-Reactive Protein, Quantitative 10.1H, Pro-B-Type Natriuretic Peptide 66141Q, Total Protein 5.0L, Albumin 1.7L, Globulin 3.3, Albumin/Globulin Ratio 0.5L Height (Feet): 5 Height (Inches): 3.00 Weight (Pounds): 140 General Appearance: no apparent distress Objective other PE not changed EARNEST CADET Dec 25, 2016 10:26
--- NOTE | 2016-12-25 12:03 | Infectious Diseases Prog Note ---
Assessment/Plan Assessment/Plan A: Sepsis Sacral osteomyelitis UTI DM PVD PAF P; continue Ertapenem case was D/W daughter Subjective ROS Limited/Unobtainable: Yes Allergies: Coded Allergies: NO KNOWN ALLERGIES (Unverified Allergy, Unknown, 09/05/15) Objective Vital Signs Last 24 Hour Vital Signs Date Time Temp Pulse Resp B/P Pulse Ox O2 Delivery O2 Flow Rate FiO2 12/25/16 09:50 75 123/70 12/25/16 08:50 96.6 71 19 130/73 100 Nasal Cannula 3.0 12/25/16 04:00 97.6 77 20 119/72 84 Nasal Cannula 2.5 12/25/16 00:00 97.7 70 20 151/79 97 Nasal Cannula 2.5 12/24/16 21:30 62 135/77 12/24/16 20:00 96.4 20 135/77 100 Nasal Cannula 2.5 12/24/16 16:00 97.7 71 17 140/65 94 Nasal Cannula 2.0 12/24/16 14:32 96.9 12/24/16 12:40 96.9 70 18 119/69 100 Nasal Cannula 3.0 Height (Feet): 5 Height (Inches): 3.00 Weight (Pounds): 140 General Appearance: no acute distress HEENT: mucous membranes moist Respiratory/Chest: lungs clear Cardiovascular: normal rate Abdomen: soft, non tender, other - GT feeding, rectal tube, Extremities: no edema, other - R arm PICC line Neurologic/Psychiatric: unresponsiveness Microbiology Date/Time Source Procedure Growth Status 12/22/16 16:15 Stool Clostridium difficile Toxin Assay - Final Complete Laboratory Tests Test 12/25/16 06:45 White Blood Count 11.5 K/UL (4.8-10.8) H Red Blood Count 2.85 M/UL (4.20-5.40) L Hemoglobin 8.1 G/DL (12.0-16.0) L Hematocrit 24.6 % (37.0-47.0) L Mean Corpuscular Volume 86 FL (80-99) Mean Corpuscular Hemoglobin 28.5 PG (27.0-31.0) Mean Corpuscular Hemoglobin Concent 33.1 G/DL (32.0-36.0) Red Cell Distribution Width 19.1 % (11.6-14.8) H Platelet Count 220 K/UL (150-450) Mean Platelet Volume 6.8 FL (6.5-10.1) Neutrophils (%) (Auto) 83.9 % (45.0-75.0) H Lymphocytes (%) (Auto) 11.5 % (20.0-45.0) L Monocytes (%) (Auto) 3.6 % (1.0-10.0) Eosinophils (%) (Auto) 0.6 % (0.0-3.0) Basophils (%) (Auto) 0.5 % (0.0-2.0) Sodium Level 151 mEQ/L (135-145) H Potassium Level 4.4 mEQ/L (3.4-4.9) Chloride Level 113 mEQ/L (98-107) H Carbon Dioxide Level 26 mEQ/L (20-30) Anion Gap 12 (5-15) Blood Urea Nitrogen 40 mg/dL (7-23) H Creatinine 0.8 mg/dL (0.5-0.9) Estimat Glomerular Filtration Rate mL/min (>60) Glucose Level 93 mg/dL (74-106) Uric Acid 6.8 mg/dL (3.0-7.5) Calcium Level 8.0 mg/dL (8.6-10.2) L Phosphorus Level 3.4 mg/dL (2.5-4.8) Magnesium Level 2.5 mg/dL (1.7-2.5) Total Bilirubin 0.2 mg/dL (0.0-1.2) Aspartate Amino Transf (AST/SGOT) 53 U/L (5-40) H Alanine Aminotransferase (ALT/SGPT) 22 U/L (3-33) Alkaline Phosphatase 90 U/L (35-104) C-Reactive Protein, Quantitative 10.1 mg/dL (< 0.5) H Pro-B-Type Natriuretic Peptide 68389 pg/mL (0-450) H Total Protein 5.0 g/dL (6.6-8.7) L Albumin 1.7 g/dL (3.5-5.2) L Globulin 3.3 g/dL Albumin/Globulin Ratio 0.5 (1.0-2.7) L Current Medications Medications (Trade) Dose Ordered Sig/David Route PRN Reason Start Time Stop Time Status Last Admin Dose Admin Acetaminophen (Tylenol) 650 mg Q4H PRN ORAL fever 12/15/16 09:45 01/14/17 09:44 Dextrose (Dextrose 50%) STAT PRN IV Hypoglycemia 12/25/16 04:00 01/24/17 03:59 Ertapenem/Sodium Chloride (INVanz/Sodium Chloride) 55 ml @ 110 mls/hr Q24H IVPB 12/19/16 12:00 01/21/17 23:59 12/24/16 12:56 Furosemide (Lasix) 40 mg DAILY IV 12/24/16 16:00 01/23/17 15:59 12/25/16 09:37 Heparin Sodium (Porcine) (Heparin 5000 units/ml) 5,000 units EVERY 12 HOURS SUBQ 12/15/16 11:00 01/14/17 10:59 12/25/16 09:36 Insulin Aspart (NovoLOG) BEFORE MEALS AND HS SUBQ 12/25/16 06:30 01/24/17 06:29 12/25/16 06:30 Metoprolol Tartrate (Lopressor) 25 mg Q12HR PEG 12/19/16 21:00 01/18/17 20:59 12/25/16 09:50 Morphine Sulfate (Morphine Sulfate) 2 mg Q4H PRN IVP For Pain 12/22/16 13:45 12/29/16 13:44 12/24/16 21:31 Nitroglycerin (Ntg) 0.4 mg Q5M PRN SL Prn Chest Pain 12/15/16 09:45 01/14/17 09:44 Ondansetron HCl 4 mg 4 mg Q6H PRN IVP Nausea & Vomiting 12/15/16 11:45 01/14/17 11:44 Sodium Hypochlorite (Dakin's Half Strength) 1 applic DAILY TOPIC 12/15/16 11:00 01/14/17 10:59 12/24/16 08:56 ARACELY SMITH Dec 25, 2016 12:03
[2016-12-25] MEDS: Ertapenem 1 GM in NS 55 ML IVPB SCH (12:04)
[2016-12-25] MEDS: Dakin's 0.25% (Half Strength) 16oz TOPIC SCH (12:05)
[2016-12-25 12:35] VITALS: BP 120/72
--- NOTE | 2016-12-25 14:43 | Cardiac Electrophysiology PN ---
Assessment/Plan Assessment/Plan 1. Status post Biotronik single chamber pacemaker implantation with NL function.. 2. Chronic atrial fibrillation. Continue metoprolol 25 mg b.i.d. Off anticoagulation for bleeding and Hb 6 range. 3. Hypertension. On metoprolol 25 mg b.i.d. 4. Sacral decubitus. Status post excision and debridement of sacral decubitus.On IV ABx. 5. History of anemia. 6. Azotemia. 7. Diastolic dysfunction. BNP of [address] [place] [address]. On Lasix 40 iv daily.Diuresing well 8. Dysphagia.S/P PEG 12/19/16 DW RN at bedside. Subjective Subjective Nonverbal. On IV abx and PEG feeding. Objective Last 24 Hour Vital Signs Date Time Temp Pulse Resp B/P Pulse Ox O2 Delivery O2 Flow Rate FiO2 12/25/16 12:35 97.5 74 19 120/72 100 Nasal Cannula 3.0 12/25/16 09:50 75 123/70 12/25/16 08:50 96.6 71 19 130/73 100 Nasal Cannula 3.0 12/25/16 04:00 97.6 77 20 119/72 84 Nasal Cannula 2.5 12/25/16 00:00 97.7 70 20 151/79 97 Nasal Cannula 2.5 12/24/16 21:30 62 135/77 12/24/16 20:00 96.4 20 135/77 100 Nasal Cannula 2.5 12/24/16 16:00 97.7 71 17 140/65 94 Nasal Cannula 2.0 Intake and Output 12/24/16 12/25/16 19:00 07:00 Intake Total 675.273 ml 135 ml Output Total 300 ml 1500 ml Balance 375.273 ml -1365 ml Intake Free Water 250 ml IV Total 245.273 ml Tube Feeding 180 ml 135 ml Output Urine Total 300 ml 1500 ml Laboratory Tests Test 12/25/16 06:45 White Blood Count 11.5 K/UL (4.8-10.8) H Red Blood Count 2.85 M/UL (4.20-5.40) L Hemoglobin 8.1 G/DL (12.0-16.0) L Hematocrit 24.6 % (37.0-47.0) L Mean Corpuscular Volume 86 FL (80-99) Mean Corpuscular Hemoglobin 28.5 PG (27.0-31.0) Mean Corpuscular Hemoglobin Concent 33.1 G/DL (32.0-36.0) Red Cell Distribution Width 19.1 % (11.6-14.8) H Platelet Count 220 K/UL (150-450) Mean Platelet Volume 6.8 FL (6.5-10.1) Neutrophils (%) (Auto) 83.9 % (45.0-75.0) H Lymphocytes (%) (Auto) 11.5 % (20.0-45.0) L Monocytes (%) (Auto) 3.6 % (1.0-10.0) Eosinophils (%) (Auto) 0.6 % (0.0-3.0) Basophils (%) (Auto) 0.5 % (0.0-2.0) Sodium Level 151 mEQ/L (135-145) H Potassium Level 4.4 mEQ/L (3.4-4.9) Chloride Level 113 mEQ/L (98-107) H Carbon Dioxide Level 26 mEQ/L (20-30) Anion Gap 12 (5-15) Blood Urea Nitrogen 40 mg/dL (7-23) H Creatinine 0.8 mg/dL (0.5-0.9) Estimat Glomerular Filtration Rate mL/min (>60) Glucose Level 93 mg/dL (74-106) Uric Acid 6.8 mg/dL (3.0-7.5) Calcium Level 8.0 mg/dL (8.6-10.2) L Phosphorus Level 3.4 mg/dL (2.5-4.8) Magnesium Level 2.5 mg/dL (1.7-2.5) Total Bilirubin 0.2 mg/dL (0.0-1.2) Aspartate Amino Transf (AST/SGOT) 53 U/L (5-40) H Alanine Aminotransferase (ALT/SGPT) 22 U/L (3-33) Alkaline Phosphatase 90 U/L (35-104) C-Reactive Protein, Quantitative 10.1 mg/dL (< 0.5) H Pro-B-Type Natriuretic Peptide 40174 pg/mL (0-450) H Total Protein 5.0 g/dL (6.6-8.7) L Albumin 1.7 g/dL (3.5-5.2) L Globulin 3.3 g/dL Albumin/Globulin Ratio 0.5 (1.0-2.7) L Microbiology Date/Time Source Procedure Growth Status 12/22/16 16:15 Stool Clostridium difficile Toxin Assay - Final Complete Objective HEAD AND NECK: Shows no JVD LUNGS: Clear. CARDIOVASCULAR: Regular S1 and S2 with no gallop or murmur. Pacemaker is at left subclavian intact. ABDOMEN: Soft.PEG in place EXTREMITIES: Large sacral decubitus status post surgery. STAR ROA Dec 25, 2016 14:43
[2016-12-25 16:23] VITALS: BP 107/60
[2016-12-25 20:27] VITALS: BP 103/57
--- NOTE | 2016-12-25 20:58 | Internal Med Progress Note ---
Subjective Physician Name Titi Cruz Attending Physician Titi Cruz MD Current Medications Medications (Trade) Dose Ordered Sig/David Route PRN Reason Start Time Stop Time Status Last Admin Dose Admin Acetaminophen (Tylenol) 650 mg Q4H PRN ORAL fever 12/15/16 09:45 01/14/17 09:44 Dextrose (Dextrose 50%) STAT PRN IV Hypoglycemia 12/25/16 04:00 01/24/17 03:59 Ertapenem/Sodium Chloride (INVanz/Sodium Chloride) 55 ml @ 110 mls/hr Q24H IVPB 12/19/16 12:00 01/21/17 23:59 12/25/16 12:04 Furosemide (Lasix) 40 mg DAILY IV 12/24/16 16:00 01/23/17 15:59 12/25/16 09:37 Heparin Sodium (Porcine) (Heparin 5000 units/ml) 5,000 units EVERY 12 HOURS SUBQ 12/15/16 11:00 01/14/17 10:59 12/25/16 09:36 Insulin Aspart (NovoLOG) BEFORE MEALS AND HS SUBQ 12/25/16 06:30 01/24/17 06:29 12/25/16 06:30 Metoprolol Tartrate (Lopressor) 25 mg Q12HR PEG 12/19/16 21:00 01/18/17 20:59 12/25/16 09:50 Morphine Sulfate (Morphine Sulfate) 2 mg Q4H PRN IVP For Pain 12/22/16 13:45 12/29/16 13:44 12/24/16 21:31 Nitroglycerin (Ntg) 0.4 mg Q5M PRN SL Prn Chest Pain 12/15/16 09:45 01/14/17 09:44 Ondansetron HCl 4 mg 4 mg Q6H PRN IVP Nausea & Vomiting 12/15/16 11:45 01/14/17 11:44 Sodium Hypochlorite (Dakin's Half Strength) 1 applic DAILY TOPIC 12/15/16 11:00 01/14/17 10:59 12/25/16 12:05 Allergies: Coded Allergies: NO KNOWN ALLERGIES (Unverified Allergy, Unknown, 09/05/15) Subjective weak, open eyes with calling her name,, daughter at bedside, decrease WBC 11.5 Objective Last Vital Signs Date Time Temp Pulse Resp B/P Pulse Ox O2 Delivery O2 Flow Rate FiO2 12/25/16 20:27 98.1 66 18 103/57 99 Nasal Cannula 3.0 12/25/16 19:49 36 Laboratory Tests Test 12/25/16 06:45 White Blood Count 11.5 K/UL (4.8-10.8) H Red Blood Count 2.85 M/UL (4.20-5.40) L Hemoglobin 8.1 G/DL (12.0-16.0) L Hematocrit 24.6 % (37.0-47.0) L Mean Corpuscular Volume 86 FL (80-99) Mean Corpuscular Hemoglobin 28.5 PG (27.0-31.0) Mean Corpuscular Hemoglobin Concent 33.1 G/DL (32.0-36.0) Red Cell Distribution Width 19.1 % (11.6-14.8) H Platelet Count 220 K/UL (150-450) Mean Platelet Volume 6.8 FL (6.5-10.1) Neutrophils (%) (Auto) 83.9 % (45.0-75.0) H Lymphocytes (%) (Auto) 11.5 % (20.0-45.0) L Monocytes (%) (Auto) 3.6 % (1.0-10.0) Eosinophils (%) (Auto) 0.6 % (0.0-3.0) Basophils (%) (Auto) 0.5 % (0.0-2.0) Sodium Level 151 mEQ/L (135-145) H Potassium Level 4.4 mEQ/L (3.4-4.9) Chloride Level 113 mEQ/L (98-107) H Carbon Dioxide Level 26 mEQ/L (20-30) Anion Gap 12 (5-15) Blood Urea Nitrogen 40 mg/dL (7-23) H Creatinine 0.8 mg/dL (0.5-0.9) Estimat Glomerular Filtration Rate mL/min (>60) Glucose Level 93 mg/dL (74-106) Uric Acid 6.8 mg/dL (3.0-7.5) Calcium Level 8.0 mg/dL (8.6-10.2) L Phosphorus Level 3.4 mg/dL (2.5-4.8) Magnesium Level 2.5 mg/dL (1.7-2.5) Total Bilirubin 0.2 mg/dL (0.0-1.2) Aspartate Amino Transf (AST/SGOT) 53 U/L (5-40) H Alanine Aminotransferase (ALT/SGPT) 22 U/L (3-33) Alkaline Phosphatase 90 U/L (35-104) C-Reactive Protein, Quantitative 10.1 mg/dL (< 0.5) H Pro-B-Type Natriuretic Peptide 54439 pg/mL (0-450) H Total Protein 5.0 g/dL (6.6-8.7) L Albumin 1.7 g/dL (3.5-5.2) L Globulin 3.3 g/dL Albumin/Globulin Ratio 0.5 (1.0-2.7) L Intake and Output 12/24/16 12/25/16 19:00 07:00 Intake Total 675.273 ml 135 ml Output Total 300 ml 1500 ml Balance 375.273 ml -1365 ml Intake Free Water 250 ml IV Total 245.273 ml Tube Feeding 180 ml 135 ml Output Urine Total 300 ml 1500 ml Objective General Appearance: less responsive,able to open eyes, thin EENT: PERRL/ anicteric Neck: non-tender, No JVD. Cardiovascular: normal peripheral pulses, no murmur,, irregularly irregular Respiratory/Chest: chest wall non-tender, poor inspiratory affords, decrease air at bases. Abdomen: normal bowel sounds, non tender, soft, + PEG, +rectal tube : Randolph cath Extremities: no edema, No C/C non-tender Skin: normal pigmentation, warm/dry Back: sacral wound Assessment/Plan Assessment/Plan Leukocytosis improving Sepsis, SP wound infection , osteomyelitis sacrum Wnd Cx : Ecoli , Citrobacter, StrpV SP Debridement Probable UTI EColi +ve Blood cx : CoNS SP Rx ALOC Diarrhea Ro C Diff Severe protein / calori malnutrition SP PEG HTN DM PVD CAD Paroxysmal atrial fibrillation. History of right lower extremity DVT. Anemia PLAN: Abx: Invanz Monitor Labs and Cultures Discuss with daughterMelissa, at bedside regarding SNF Placement ([facility]) in AM. wound care DC Lasix IV Water Flushed Via PEG Titi Cruz MD Dec 25, 2016 20:58
--- NOTE | 2016-12-25 23:21 | Pulmonology Progress Note ---
Assessment/Plan Problems: (1) Sepsis (2) Acute encephalopathy (3) Renal failure (4) UTI (urinary tract infection) (5) Decubitus ulcer of sacral area (6) Anemia (7) Alzheimer's dementia Assessment/Plan s/p debridement NG tube insertion was not successful continue antibiotics check cultures check electrolytes iv fluids check Ca daily wbc decreasing dvt prophylaxis Subjective ROS Limited/Unobtainable: Yes Constitutional: Reports: anorexia, fatigue Respiratory: Reports: dyspnea at rest, productive cough, shortness of breath Genitourinary: Reports: dysuria, frequency, hematuria, nocturia, urgency Neurologic: Reports: confusion, weakness Allergies: Coded Allergies: NO KNOWN ALLERGIES (Unverified Allergy, Unknown, 09/05/15) Objective Last 24 Hour Vital Signs Date Time Temp Pulse Resp B/P Pulse Ox O2 Delivery O2 Flow Rate FiO2 12/25/16 21:20 66 103/57 12/25/16 20:27 98.1 66 18 103/57 99 Nasal Cannula 3.0 12/25/16 19:49 Nasal Cannula 4.0 36 12/25/16 19:49 97 Nasal Cannula 4.0 36 12/25/16 16:23 98.1 69 17 107/60 94 Nasal Cannula 3.0 12/25/16 12:35 97.5 74 19 120/72 100 Nasal Cannula 3.0 12/25/16 09:50 75 123/70 12/25/16 08:50 96.6 71 19 130/73 100 Nasal Cannula 3.0 12/25/16 04:00 97.6 77 20 119/72 84 Nasal Cannula 2.5 12/25/16 00:00 97.7 70 20 151/79 97 Nasal Cannula 2.5 Intake and Output 12/24/16 12/25/16 19:00 07:00 Intake Total 675.273 ml 135 ml Output Total 300 ml 1500 ml Balance 375.273 ml -1365 ml Intake Free Water 250 ml IV Total 245.273 ml Tube Feeding 180 ml 135 ml Output Urine Total 300 ml 1500 ml General Appearance: no acute distress HEENT: atraumatic, PERRL Respiratory/Chest: chest wall non-tender, decreased breath sounds, accessory muscle use Breasts: no masses Cardiovascular: normal peripheral pulses, normal rate, regular rhythm Abdomen: normal bowel sounds, soft, non tender, no organomegaly Genitourinary: normal external genitalia Extremities: no cyanosis Skin: no rash Neurologic/Psychiatric: gallery intern II-XII grossly normal, responsive, disoriented Laboratory Tests 12/25/16 06:45: White Blood Count 11.5H, Red Blood Count 2.85L, Hemoglobin 8.1L, Hematocrit 24.6L, Mean Corpuscular Volume 86, Mean Corpuscular Hemoglobin 28.5, Mean Corpuscular Hemoglobin Concent 33.1, Red Cell Distribution Width 19.1H, Platelet Count 220, Mean Platelet Volume 6.8, Neutrophils (%) (Auto) 83.9H, Lymphocytes (%) (Auto) 11.5L, Monocytes (%) (Auto) 3.6, Eosinophils (%) (Auto) 0.6, Basophils (%) (Auto) 0.5, Sodium Level 151H, Potassium Level 4.4, Chloride Level 113H, Carbon Dioxide Level 26, Anion Gap 12, Blood Urea Nitrogen 40H, Creatinine 0.8, Estimat Glomerular Filtration Rate , Glucose Level 93, Uric Acid 6.8, Calcium Level 8.0L, Phosphorus Level 3.4, Magnesium Level 2.5, Total Bilirubin 0.2, Aspartate Amino Transf (AST/SGOT) 53H, Alanine Aminotransferase ( ALT/SGPT) 22, Alkaline Phosphatase 90, C-Reactive Protein, Quantitative 10.1H, Pro-B-Type Natriuretic Peptide 51947Q, Total Protein 5.0L, Albumin 1.7L, Globulin 3.3, Albumin/Globulin Ratio 0.5L Current Medications Medications (Trade) Dose Ordered Sig/David Route PRN Reason Start Time Stop Time Status Last Admin Dose Admin Acetaminophen (Tylenol) 650 mg Q4H PRN ORAL fever 12/15/16 09:45 01/14/17 09:44 Dextrose (Dextrose 50%) STAT PRN IV Hypoglycemia 12/25/16 04:00 01/24/17 03:59 Ertapenem/Sodium Chloride (INVanz/Sodium Chloride) 55 ml @ 110 mls/hr Q24H IVPB 12/19/16 12:00 01/21/17 23:59 12/25/16 12:04 Heparin Sodium (Porcine) (Heparin 5000 units/ml) 5,000 units EVERY 12 HOURS SUBQ 12/15/16 11:00 01/14/17 10:59 12/25/16 21:24 Insulin Aspart (NovoLOG) BEFORE MEALS AND HS SUBQ 12/25/16 06:30 01/24/17 06:29 12/25/16 06:30 Metoprolol Tartrate (Lopressor) 25 mg Q12HR PEG 12/19/16 21:00 01/18/17 20:59 12/25/16 21:20 Morphine Sulfate (Morphine Sulfate) 2 mg Q4H PRN IVP For Pain 12/22/16 13:45 12/29/16 13:44 12/24/16 21:31 Nitroglycerin (Ntg) 0.4 mg Q5M PRN SL Prn Chest Pain 12/15/16 09:45 01/14/17 09:44 Ondansetron HCl 4 mg 4 mg Q6H PRN IVP Nausea & Vomiting 12/15/16 11:45 01/14/17 11:44 Sodium Hypochlorite (Dakin's Half Strength) 1 applic DAILY TOPIC 12/15/16 11:00 01/14/17 10:59 12/25/16 12:05 EVENS CASTELLON Dec 25, 2016 23:21
[2016-12-26] VITALS: BP 129/66
[2016-12-26 04:00] VITALS: BP 103/52
[2016-12-26] MEDS: NovoLOG Insulin Flexpen SUBQ SCH ×4 (06:32→21:00)
[2016-12-26 08:00] VITALS: BP 121/61
[2016-12-26 08:06] LABS: MEAN CORPUSCULAR HEMOGLOBIN 28.5 PG (27.0-31.0); MEAN CORPUSCULAR HGB CONC 33.5 G/DL (32.0-36.0); MEAN CORPUSCULAR VOLUME 85 FL (80-99); MEAN PLATELET VOLUME 6.2 FL (6.5-10.1); PLATELET COUNT 222 K/UL (150-450); RED BLOOD COUNT 2.65 M/UL (4.20-5.40); RED CELL DISTRIBUTION WIDTH 18.8 % (11.6-14.8); WHITE BLOOD COUNT 9.2 K/UL (4.8-10.8)
[2016-12-26 08:07] LABS: ANION GAP 9 (5-15); CALCIUM 7.9 mg/dL (8.6-10.2); CARBON DIOXIDE 29 mEQ/L (20-30); CHLORIDE 116 mEQ/L (98-107); CREATININE 0.8 mg/dL (0.5-0.9); HEMOLYSIS 3; MAGNESIUM 2.2 mg/dL (1.7-2.5); PHOSPHORUS 3.3 mg/dL (2.5-4.8); POTASSIUM 4.4 mEQ/L (3.4-4.9); SODIUM 154 mEQ/L (135-145)
[2016-12-26] MEDS: Morphine Sulfate 2mg/ml Inj IVP PRN ×2 (08:17→19:26)
--- NOTE | 2016-12-26 10:10 | Infectious Diseases Prog Note ---
Assessment/Plan Assessment/Plan A: The patient is an 86-year-old female Low grade fever , SP Leukocytosis, SP Sepsis, SP wound infection , osteomyelitis sacrum Wnd Cx : Ecoli , Citrobacter, StrpV SP Debridement Probable UTI EColi SP Rx +ve Blood cx : CoNS SP Rx ALOC, SP Diarrhea C Diff neg SP PEG HTN DM PVD CAD Paroxysmal atrial fibrillation. History of right lower extremity DVT. Anemia PLAN: continue the patient on Invanz d# 9 / 35 ( SP IV vancomycin. and Zosyn ---> Rocephin d# 7 ) Monitor CBC Monitor BMP Subjective Allergies: Coded Allergies: NO KNOWN ALLERGIES (Unverified Allergy, Unknown, 09/05/15) Subjective afebrile Objective Vital Signs Last 24 Hour Vital Signs Date Time Temp Pulse Resp B/P Pulse Ox O2 Delivery O2 Flow Rate FiO2 12/26/16 08:00 98.2 68 20 121/61 100 Nasal Cannula 2.5 12/26/16 04:00 98.2 69 18 103/52 100 Nasal Cannula 3.0 12/26/16 00:00 97.9 71 18 129/66 100 Nasal Cannula 3.0 12/25/16 21:20 66 103/57 12/25/16 20:27 98.1 66 18 103/57 99 Nasal Cannula 3.0 12/25/16 19:49 Nasal Cannula 4.0 36 12/25/16 19:49 97 Nasal Cannula 4.0 36 12/25/16 16:23 98.1 69 17 107/60 94 Nasal Cannula 3.0 12/25/16 12:35 97.5 74 19 120/72 100 Nasal Cannula 3.0 Height (Feet): 5 Height (Inches): 3.00 Weight (Pounds): 140 HEENT: atraumatic Respiratory/Chest: no respiratory distress Cardiovascular: regular rhythm Abdomen: no mass Laboratory Tests Test 12/26/16 06:45 White Blood Count 9.2 K/UL (4.8-10.8) Red Blood Count 2.65 M/UL (4.20-5.40) L Hemoglobin 7.5 G/DL (12.0-16.0) L Hematocrit 22.5 % (37.0-47.0) L Mean Corpuscular Volume 85 FL (80-99) Mean Corpuscular Hemoglobin 28.5 PG (27.0-31.0) Mean Corpuscular Hemoglobin Concent 33.5 G/DL (32.0-36.0) Red Cell Distribution Width 18.8 % (11.6-14.8) H Platelet Count 222 K/UL (150-450) Mean Platelet Volume 6.2 FL (6.5-10.1) L Neutrophils (%) (Auto) % (45.0-75.0) Lymphocytes (%) (Auto) % (20.0-45.0) Monocytes (%) (Auto) % (1.0-10.0) Eosinophils (%) (Auto) % (0.0-3.0) Basophils (%) (Auto) % (0.0-2.0) Neutrophils % (Manual) Pending Lymphocytes % (Manual) Pending Platelet Estimate Pending Platelet Morphology Pending Sodium Level 154 mEQ/L (135-145) H Potassium Level 4.4 mEQ/L (3.4-4.9) Chloride Level 116 mEQ/L (98-107) H Carbon Dioxide Level 29 mEQ/L (20-30) Anion Gap 9 (5-15) Blood Urea Nitrogen 45 mg/dL (7-23) H Creatinine 0.8 mg/dL (0.5-0.9) Estimat Glomerular Filtration Rate mL/min (>60) Glucose Level 110 mg/dL (74-106) H Calcium Level 7.9 mg/dL (8.6-10.2) L Phosphorus Level 3.3 mg/dL (2.5-4.8) Magnesium Level 2.2 mg/dL (1.7-2.5) Current Medications Medications (Trade) Dose Ordered Sig/David Route PRN Reason Start Time Stop Time Status Last Admin Dose Admin Acetaminophen (Tylenol) 650 mg Q4H PRN ORAL fever 12/15/16 09:45 01/14/17 09:44 Dextrose (Dextrose 50%) STAT PRN IV Hypoglycemia 12/25/16 04:00 01/24/17 03:59 Ertapenem/Sodium Chloride (INVanz/Sodium Chloride) 55 ml @ 110 mls/hr Q24H IVPB 12/19/16 12:00 01/21/17 23:59 12/25/16 12:04 Heparin Sodium (Porcine) (Heparin 5000 units/ml) 5,000 units EVERY 12 HOURS SUBQ 12/15/16 11:00 01/14/17 10:59 12/25/16 21:24 Insulin Aspart (NovoLOG) BEFORE MEALS AND HS SUBQ 12/25/16 06:30 01/24/17 06:29 12/26/16 06:32 Metoprolol Tartrate (Lopressor) 25 mg Q12HR PEG 12/19/16 21:00 01/18/17 20:59 12/25/16 21:20 Morphine Sulfate (Morphine Sulfate) 2 mg Q4H PRN IVP For Pain 12/22/16 13:45 12/29/16 13:44 12/26/16 08:17 Nitroglycerin (Ntg) 0.4 mg Q5M PRN SL Prn Chest Pain 12/15/16 09:45 01/14/17 09:44 Ondansetron HCl 4 mg 4 mg Q6H PRN IVP Nausea & Vomiting 12/15/16 11:45 01/14/17 11:44 Sodium Hypochlorite (Dakin's Half Strength) 1 applic DAILY TOPIC 12/15/16 11:00 01/14/17 10:59 12/25/16 12:05 RADHA BAILON M.D. Dec 26, 2016 10:10
[2016-12-26] MEDS: Heparin 5000 units/ml inj SUBQ SCH ×2 (10:49→21:37)
[2016-12-26] MEDS: Metoprolol 25mg tab PEG SCH ×2 (10:51→21:32)
[2016-12-26 11:18] LABS: ANISOCYTOSIS 2+; BAND NEUTROPHILS % (MANUAL) 0 % (0-8); BASOPHILS % (MANUAL) 0 % (0-2); EOSINOPHILS % (MANUAL) 0 % (0-3); LYMPHOCYTES % (MANUAL) 13 % (20-45); NEUTROPHILS % (MANUAL) 83 % (45-75); PLATELET ESTIMATE ADEQUATE; PLATELET MORPHOLOGY NORMAL; TOTAL CELLS COUNTED 100
--- NOTE | 2016-12-26 11:18 | Internal Med Progress Note ---
Subjective Date of Service: Dec 26, 2016 Physician Name Bradley Davis Attending Physician Titi Cruz MD Current Medications Medications (Trade) Dose Ordered Sig/David Route PRN Reason Start Time Stop Time Status Last Admin Dose Admin Acetaminophen (Tylenol) 650 mg Q4H PRN ORAL fever 12/15/16 09:45 01/14/17 09:44 Dextrose (Dextrose 50%) STAT PRN IV Hypoglycemia 12/25/16 04:00 01/24/17 03:59 Ertapenem/Sodium Chloride (INVanz/Sodium Chloride) 55 ml @ 110 mls/hr Q24H IVPB 12/19/16 12:00 01/21/17 23:59 12/25/16 12:04 Heparin Sodium (Porcine) (Heparin 5000 units/ml) 5,000 units EVERY 12 HOURS SUBQ 12/15/16 11:00 01/14/17 10:59 12/26/16 10:49 Insulin Aspart (NovoLOG) BEFORE MEALS AND HS SUBQ 12/25/16 06:30 01/24/17 06:29 12/26/16 06:32 Metoprolol Tartrate (Lopressor) 25 mg Q12HR PEG 12/19/16 21:00 01/18/17 20:59 12/26/16 10:51 Morphine Sulfate (Morphine Sulfate) 2 mg Q4H PRN IVP For Pain 12/22/16 13:45 12/29/16 13:44 12/26/16 08:17 Nitroglycerin (Ntg) 0.4 mg Q5M PRN SL Prn Chest Pain 12/15/16 09:45 01/14/17 09:44 Ondansetron HCl 4 mg 4 mg Q6H PRN IVP Nausea & Vomiting 12/15/16 11:45 01/14/17 11:44 Sodium Hypochlorite (Dakin's Half Strength) 1 applic DAILY TOPIC 12/15/16 11:00 01/14/17 10:59 12/25/16 12:05 Allergies: Coded Allergies: NO KNOWN ALLERGIES (Unverified Allergy, Unknown, 09/05/15) Subjective 86 YO F admitted with sepsis. S/P debridement sacral decubitus ulcer on . Cover for Int Med-Dr Cruz. S/P PEG placement 12/19/16. S/P transfusion . Await placement at [facility]. Objective Last Vital Signs Date Time Temp Pulse Resp B/P Pulse Ox O2 Delivery O2 Flow Rate FiO2 12/26/16 10:51 75 114/61 12/26/16 08:00 98.2 20 100 Nasal Cannula 2.5 12/25/16 19:49 36 Laboratory Tests Test 12/26/16 06:45 White Blood Count 9.2 K/UL (4.8-10.8) Red Blood Count 2.65 M/UL (4.20-5.40) L Hemoglobin 7.5 G/DL (12.0-16.0) L Hematocrit 22.5 % (37.0-47.0) L Mean Corpuscular Volume 85 FL (80-99) Mean Corpuscular Hemoglobin 28.5 PG (27.0-31.0) Mean Corpuscular Hemoglobin Concent 33.5 G/DL (32.0-36.0) Red Cell Distribution Width 18.8 % (11.6-14.8) H Platelet Count 222 K/UL (150-450) Mean Platelet Volume 6.2 FL (6.5-10.1) L Neutrophils (%) (Auto) % (45.0-75.0) Lymphocytes (%) (Auto) % (20.0-45.0) Monocytes (%) (Auto) % (1.0-10.0) Eosinophils (%) (Auto) % (0.0-3.0) Basophils (%) (Auto) % (0.0-2.0) Neutrophils % (Manual) Pending Lymphocytes % (Manual) Pending Platelet Estimate Pending Platelet Morphology Pending Sodium Level 154 mEQ/L (135-145) H Potassium Level 4.4 mEQ/L (3.4-4.9) Chloride Level 116 mEQ/L (98-107) H Carbon Dioxide Level 29 mEQ/L (20-30) Anion Gap 9 (5-15) Blood Urea Nitrogen 45 mg/dL (7-23) H Creatinine 0.8 mg/dL (0.5-0.9) Estimat Glomerular Filtration Rate mL/min (>60) Glucose Level 110 mg/dL (74-106) H Calcium Level 7.9 mg/dL (8.6-10.2) L Phosphorus Level 3.3 mg/dL (2.5-4.8) Magnesium Level 2.2 mg/dL (1.7-2.5) Intake and Output 12/25/16 12/26/16 19:00 07:00 Intake Total 690 ml 285 ml Output Total 750 ml 2000 ml Balance -60 ml -1715 ml Intake Free Water 150 ml 150 ml Tube Feeding 540 ml 135 ml Output Urine Total 750 ml 1900 ml Stool Total 100 ml # Bowel Movements 1 Objective General Appearance: mild distress, lethargic, thin EENT: PERRL/EOMI, normal ENT inspection Neck: non-tender, normal alignment Cardiovascular: normal peripheral pulses, no gallop/murmur, no JVD, irregularly irregular Respiratory/Chest: chest wall non-tender, crackles/rales, rhonchi - bilaterally , expiratory wheezing Abdomen: normal bowel sounds, non tender, soft, no organomegaly, no mass Extremities: normal range of motion, non-tender Skin: normal pigmentation, warm/dry Assessment/Plan Problem List: (1) Dysphagia Assessment & Plan: S/P PEG placement 12/19/16-See GI note-Dr Miles. (2) Hypokalemia Assessment & Plan: See nephrology note. (3) Hypernatremia (4) UTI (urinary tract infection) Assessment & Plan: E. Coli. Continue ertapenem per ID. (5) Severe malnutrition (6) Renal failure Assessment & Plan: Followed by nephrology - Dr Leone- see note. (7) Sepsis (8) Sacral decubitus ulcer, stage IV Assessment & Plan: S/P Debridement 12/14/16. Continue ertapenem per ID (9) Hypertension (10) Coronary artery disease (11) Atrial fibrillation Assessment & Plan: See cardiology note. (12) History of DVT (deep vein thrombosis) (13) Anemia Assessment & Plan: S/P transfusion 1 unit PRBC on 12/20/16 (14) Diabetes mellitus Assessment & Plan: Hyperglycemia. Add novolog sliding scale. (15) Osteomyelitis of sacrum Assessment & Plan: Continue Invanz - See ID note. Status: not improved Assessment/Plan Transfer to [facility]. BRADLEY DAVIS Dec 26, 2016 11:18
[2016-12-26 11:19] LABS: HYPOCHROMASIA 2+; TARGET CELLS 1+
[2016-12-26 11:58] VITALS: BP 114/64
[2016-12-26] MEDS: Ertapenem 1 GM in NS 55 ML IVPB SCH (12:51)
--- NOTE | 2016-12-26 13:18 | GI Progress Note ---
Assessment/Plan Problems: (1) Diabetes mellitus ICD Codes: E11.9 - Type 2 diabetes mellitus without complications SNOMED: 44303318 (2) Dysphagia ICD Codes: R13.10 - Dysphagia, unspecified SNOMED: 31985402, 157153735 (3) Encounter for PEG (percutaneous endoscopic gastrostomy) ICD Codes: Z43.1 - Encounter for attention to gastrostomy SNOMED: 127078174, 110352314 (4) Severe malnutrition ICD Codes: E43 - Unspecified severe protein-calorie malnutrition SNOMED: 23794514 (5) Hypoalbuminemia ICD Codes: E88.09 - Other disorders of plasma-protein metabolism, not elsewhere classified SNOMED: 669555621 (6) Leukocytosis ICD Codes: D72.829 - Elevated white blood cell count, unspecified SNOMED: 725600997, 397398337 (7) Iron deficiency ICD Codes: E61.1 - Iron deficiency SNOMED: 68230655 Status: unchanged Status Narrative Discussed with Dr. Miles. Assessment/Plan SUMMARY OF FINDINGS: 1. Severe atrophic gastritis. 2. Two gastric polyps removed with the snare polypectomy technique. 3. Status post successful percutaneous endoscopic gastrostomy placement. gastric biopsy >> no meta/dysplasia RECOMMENDATIONS: 1. Abdominal binder. 2. Elevate the head of the bed at all times. 3. G-tube flush. 4. G-tube care. 5. GTFs cdiff negative swallow video for oral grat abx monitor H&H >> transfused prn PPI daily given history of severe gastritis iron panel >> unremarkable bowel regime fu labs Subjective Subjective limited Objective Last 24 Hour Vital Signs Date Time Temp Pulse Resp B/P Pulse Ox O2 Delivery O2 Flow Rate FiO2 12/26/16 11:58 97.9 75 18 114/64 100 Nasal Cannula 2.0 12/26/16 10:51 75 114/61 12/26/16 08:00 98.2 68 20 121/61 100 Nasal Cannula 2.5 12/26/16 04:00 98.2 69 18 103/52 100 Nasal Cannula 3.0 12/26/16 00:00 97.9 71 18 129/66 100 Nasal Cannula 3.0 12/25/16 21:20 66 103/57 12/25/16 20:27 98.1 66 18 103/57 99 Nasal Cannula 3.0 12/25/16 19:49 Nasal Cannula 4.0 36 12/25/16 19:49 97 Nasal Cannula 4.0 36 12/25/16 16:23 98.1 69 17 107/60 94 Nasal Cannula 3.0 Intake and Output 12/25/16 12/26/16 19:00 07:00 Intake Total 690 ml 285 ml Output Total 750 ml 2000 ml Balance -60 ml -1715 ml Intake Free Water 150 ml 150 ml Tube Feeding 540 ml 135 ml Output Urine Total 750 ml 1900 ml Stool Total 100 ml # Bowel Movements 1 Laboratory Tests Test 12/26/16 06:45 White Blood Count 9.2 K/UL (4.8-10.8) Red Blood Count 2.65 M/UL (4.20-5.40) L Hemoglobin 7.5 G/DL (12.0-16.0) L Hematocrit 22.5 % (37.0-47.0) L Mean Corpuscular Volume 85 FL (80-99) Mean Corpuscular Hemoglobin 28.5 PG (27.0-31.0) Mean Corpuscular Hemoglobin Concent 33.5 G/DL (32.0-36.0) Red Cell Distribution Width 18.8 % (11.6-14.8) H Platelet Count 222 K/UL (150-450) Mean Platelet Volume 6.2 FL (6.5-10.1) L Neutrophils (%) (Auto) % (45.0-75.0) Lymphocytes (%) (Auto) % (20.0-45.0) Monocytes (%) (Auto) % (1.0-10.0) Eosinophils (%) (Auto) % (0.0-3.0) Basophils (%) (Auto) % (0.0-2.0) Differential Total Cells Counted 100 Neutrophils % (Manual) 83 % (45-75) H Lymphocytes % (Manual) 13 % (20-45) L Monocytes % (Manual) 4 % (1-10) Eosinophils % (Manual) 0 % (0-3) Basophils % (Manual) 0 % (0-2) Band Neutrophils 0 % (0-8) Platelet Estimate Adequate Platelet Morphology Normal Hypochromasia 2+ Anisocytosis 2+ Target Cells 1+ Sodium Level 154 mEQ/L (135-145) H Potassium Level 4.4 mEQ/L (3.4-4.9) Chloride Level 116 mEQ/L (98-107) H Carbon Dioxide Level 29 mEQ/L (20-30) Anion Gap 9 (5-15) Blood Urea Nitrogen 45 mg/dL (7-23) H Creatinine 0.8 mg/dL (0.5-0.9) Estimat Glomerular Filtration Rate mL/min (>60) Glucose Level 110 mg/dL (74-106) H Calcium Level 7.9 mg/dL (8.6-10.2) L Phosphorus Level 3.3 mg/dL (2.5-4.8) Magnesium Level 2.2 mg/dL (1.7-2.5) Height (Feet): 5 Height (Inches): 3.00 Weight (Pounds): 140 General Appearance: no apparent distress, alert, thin Cardiovascular: normal rate Respiratory/Chest: other - NC Abdominal Exam: GT site - c/d/i Objective more alert today DATE OF PROCEDURE: 12/19/2016 SURGEON: Ruben Miles M.D. PROCEDURE: Upper endoscopy with snare polypectomy biopsy and G-tube placement. SUMMARY OF FINDINGS: 1. Severe atrophic gastritis. 2. Two gastric polyps removed with the snare polypectomy technique. 3. Status post successful percutaneous endoscopic gastrostomy placement. RECOMMENDATIONS: 1. Abdominal binder. 2. Elevate the head of the bed at all times. 3. G-tube flush. 4. G-tube care. 5. Start tube feeding later today. 6. The patient is currently on ceftriaxone. DATE OF PROCEDURE: 10/23/2015 SURGEON: Ruben Miles M.D. PROCEDURE: Upper endoscopy with biopsy and colonoscopy with biopsy and polypectomy. INDICATION: Anemia, screening colonoscopy evaluation, abdominal pain, and GERD. SUMMARY OF FINDINGS: 1. Severe gastritis, status post biopsy. 2. Duodenal polyp, status post biopsy. 3. Inflammatory looking polyp in the antrum of the stomach, status post biopsy. 4. Paraesophageal hernia. 5. Two colonic polyp removed, see above for details. 6. Diverticulosis. 7. Internal hemorrhoids. Lyndsay Torres N.P. Dec 26, 2016 13:18
--- NOTE | 2016-12-26 15:26 | Cardiac Electrophysiology PN ---
Assessment/Plan Assessment/Plan 1. Status post Biotronik single chamber pacemaker implantation with NL function. 2. Chronic atrial fibrillation. Continue metoprolol 25 mg b.i.d. Off anticoagulation for bleeding and Hb 6 range. 3. Hypertension. On metoprolol 25 mg b.i.d. 4. Sacral decubitus. Status post excision and debridement of sacral decubitus.On IV ABx. 5. History of anemia. 6. Azotemia. 7. Diastolic dysfunction. Now off Lasix. 8. Dysphagia.S/P PEG 12/19/[address] Gonzalez at bedside. Subjective Subjective Nonverbal. On IV abx and PEG feeding.Daughter at bedside.No events overnight. Objective Last 24 Hour Vital Signs Date Time Temp Pulse Resp B/P Pulse Ox O2 Delivery O2 Flow Rate FiO2 12/26/16 11:58 97.9 75 18 114/64 100 Nasal Cannula 2.0 12/26/16 10:51 75 114/61 12/26/16 08:00 98.2 68 20 121/61 100 Nasal Cannula 2.5 12/26/16 04:00 98.2 69 18 103/52 100 Nasal Cannula 3.0 12/26/16 00:00 97.9 71 18 129/66 100 Nasal Cannula 3.0 12/25/16 21:20 66 103/57 12/25/16 20:27 98.1 66 18 103/57 99 Nasal Cannula 3.0 12/25/16 19:49 Nasal Cannula 4.0 36 12/25/16 19:49 97 Nasal Cannula 4.0 36 12/25/16 16:23 98.1 69 17 107/60 94 Nasal Cannula 3.0 Intake and Output 12/25/16 12/26/16 19:00 07:00 Intake Total 690 ml 285 ml Output Total 750 ml 2000 ml Balance -60 ml -1715 ml Intake Free Water 150 ml 150 ml Tube Feeding 540 ml 135 ml Output Urine Total 750 ml 1900 ml Stool Total 100 ml # Bowel Movements 1 Laboratory Tests Test 12/26/16 06:45 White Blood Count 9.2 K/UL (4.8-10.8) Red Blood Count 2.65 M/UL (4.20-5.40) L Hemoglobin 7.5 G/DL (12.0-16.0) L Hematocrit 22.5 % (37.0-47.0) L Mean Corpuscular Volume 85 FL (80-99) Mean Corpuscular Hemoglobin 28.5 PG (27.0-31.0) Mean Corpuscular Hemoglobin Concent 33.5 G/DL (32.0-36.0) Red Cell Distribution Width 18.8 % (11.6-14.8) H Platelet Count 222 K/UL (150-450) Mean Platelet Volume 6.2 FL (6.5-10.1) L Neutrophils (%) (Auto) % (45.0-75.0) Lymphocytes (%) (Auto) % (20.0-45.0) Monocytes (%) (Auto) % (1.0-10.0) Eosinophils (%) (Auto) % (0.0-3.0) Basophils (%) (Auto) % (0.0-2.0) Differential Total Cells Counted 100 Neutrophils % (Manual) 83 % (45-75) H Lymphocytes % (Manual) 13 % (20-45) L Monocytes % (Manual) 4 % (1-10) Eosinophils % (Manual) 0 % (0-3) Basophils % (Manual) 0 % (0-2) Band Neutrophils 0 % (0-8) Platelet Estimate Adequate Platelet Morphology Normal Hypochromasia 2+ Anisocytosis 2+ Target Cells 1+ Sodium Level 154 mEQ/L (135-145) H Potassium Level 4.4 mEQ/L (3.4-4.9) Chloride Level 116 mEQ/L (98-107) H Carbon Dioxide Level 29 mEQ/L (20-30) Anion Gap 9 (5-15) Blood Urea Nitrogen 45 mg/dL (7-23) H Creatinine 0.8 mg/dL (0.5-0.9) Estimat Glomerular Filtration Rate mL/min (>60) Glucose Level 110 mg/dL (74-106) H Calcium Level 7.9 mg/dL (8.6-10.2) L Phosphorus Level 3.3 mg/dL (2.5-4.8) Magnesium Level 2.2 mg/dL (1.7-2.5) Objective HEAD AND NECK: Shows no JVD LUNGS: Clear. CARDIOVASCULAR: Regular S1 and S2 with no gallop or murmur. Pacemaker is at left subclavian intact. ABDOMEN: Soft.PEG in place EXTREMITIES: Large sacral decubitus status post surgery. STAR ROA Dec 26, 2016 15:26
[2016-12-26] MEDS: Dakin's 0.25% (Half Strength) 16oz TOPIC SCH (15:56)
[2016-12-26 16:00] VITALS: BP 128/66
--- NOTE | 2016-12-26 16:59 | General Progress Note ---
Assessment/Plan Status: stable - from renal stand, unchanged Assessment/Plan status: Acute renal failure- mainly prerenal improved HyperCalcemia- being treated Leukocytosis / sepsis, on antibiotics other conditions mentioned in PH: -History of anemia. -Hypertension. -Diabetes type 2. -History of coronary artery disease. -Renal failure. -Paroxysmal atrial fibrillation. -History of right lower extremity deep venous thrombosis. -Arthritis. -Alzheimer's dementia. -Pacemaker in situ. Plan: Has PEG Phos and K and Mag supplement as needed- Monitor renal parameters- per orders- Per GI and ID discussed with RN Subjective ROS Limited/Unobtainable: No Allergies: Coded Allergies: NO KNOWN ALLERGIES (Unverified Allergy, Unknown, 09/05/15) Objective Last 24 Hour Vital Signs Date Time Temp Pulse Resp B/P Pulse Ox O2 Delivery O2 Flow Rate FiO2 12/26/16 16:00 96.8 63 20 128/66 100 Room Air 12/26/16 11:58 97.9 75 18 114/64 100 Nasal Cannula 2.0 12/26/16 10:51 75 114/61 12/26/16 08:00 98.2 68 20 121/61 100 Nasal Cannula 2.5 12/26/16 04:00 98.2 69 18 103/52 100 Nasal Cannula 3.0 12/26/16 00:00 97.9 71 18 129/66 100 Nasal Cannula 3.0 12/25/16 21:20 66 103/57 12/25/16 20:27 98.1 66 18 103/57 99 Nasal Cannula 3.0 12/25/16 19:49 Nasal Cannula 4.0 36 12/25/16 19:49 97 Nasal Cannula 4.0 36 Intake and Output 12/25/16 12/26/16 19:00 07:00 Intake Total 690 ml 285 ml Output Total 750 ml 2000 ml Balance -60 ml -1715 ml Intake Free Water 150 ml 150 ml Tube Feeding 540 ml 135 ml Output Urine Total 750 ml 1900 ml Stool Total 100 ml # Bowel Movements 1 Laboratory Tests 12/26/16 06:45: White Blood Count 9.2, Red Blood Count 2.65L, Hemoglobin 7.5L, Hematocrit 22.5L , Mean Corpuscular Volume 85, Mean Corpuscular Hemoglobin 28.5, Mean Corpuscular Hemoglobin Concent 33.5, Red Cell Distribution Width 18.8H, Platelet Count 222, Mean Platelet Volume 6.2L, Neutrophils (%) (Auto) , Lymphocytes (%) (Auto) , Monocytes (%) (Auto) , Eosinophils (%) (Auto) , Basophils (%) (Auto) , Differential Total Cells Counted 100, Neutrophils % ( Manual) 83H, Lymphocytes % (Manual) 13L, Monocytes % (Manual) 4, Eosinophils % ( Manual) 0, Basophils % (Manual) 0, Band Neutrophils 0, Platelet Estimate Adequate, Platelet Morphology Normal, Hypochromasia 2+, Anisocytosis 2+, Target Cells 1+, Sodium Level 154H, Potassium Level 4.4, Chloride Level 116H, Carbon Dioxide Level 29, Anion Gap 9, Blood Urea Nitrogen 45H, Creatinine 0.8, Estimat Glomerular Filtration Rate , Glucose Level 110H, Calcium Level 7.9L, Phosphorus Level 3.3, Magnesium Level 2.2 Height (Feet): 5 Height (Inches): 3.00 Weight (Pounds): 140 General Appearance: no apparent distress Objective other PE not changed EARNEST CADET Dec 26, 2016 16:59
[2016-12-26] MEDS ORDERED: D5W 250 ML IVPB ONE (17:15)
[2016-12-26 20:00] VITALS: BP 118/61
--- NOTE | 2016-12-26 23:40 | Pulmonology Progress Note ---
Assessment/Plan Problems: (1) Sepsis (2) Acute encephalopathy (3) Renal failure (4) UTI (urinary tract infection) (5) Decubitus ulcer of sacral area (6) Anemia (7) Alzheimer's dementia Assessment/Plan s/p debridement NG tube insertion was not successful continue antibiotics check cultures check electrolytes iv fluids check Ca daily wbc decreasing dvt prophylaxis Subjective ROS Limited/Unobtainable: No Constitutional: Reports: anorexia, fatigue Skin: Reports: rash, ulcer Allergies: Coded Allergies: NO KNOWN ALLERGIES (Unverified Allergy, Unknown, 09/05/15) Objective Last 24 Hour Vital Signs Date Time Temp Pulse Resp B/P Pulse Ox O2 Delivery O2 Flow Rate FiO2 12/26/16 21:32 66 118/68 12/26/16 20:52 Nasal Cannula 4.0 36 12/26/16 20:52 97 Nasal Cannula 4.0 36 12/26/16 20:00 97.5 66 20 118/61 100 Room Air 12/26/16 19:56 96.8 12/26/16 16:00 96.8 63 20 128/66 100 Room Air 12/26/16 11:58 97.9 75 18 114/64 100 Nasal Cannula 2.0 12/26/16 10:51 75 114/61 12/26/16 08:00 98.2 68 20 121/61 100 Nasal Cannula 2.5 12/26/16 04:00 98.2 69 18 103/52 100 Nasal Cannula 3.0 12/26/16 00:00 97.9 71 18 129/66 100 Nasal Cannula 3.0 Intake and Output 12/25/16 12/26/16 19:00 07:00 Intake Total 690 ml 285 ml Output Total 750 ml 2000 ml Balance -60 ml -1715 ml Intake Free Water 150 ml 150 ml Tube Feeding 540 ml 135 ml Output Urine Total 750 ml 1900 ml Stool Total 100 ml # Bowel Movements 1 General Appearance: no acute distress HEENT: normocephalic, atraumatic, PERRL Respiratory/Chest: chest wall non-tender, decreased breath sounds, accessory muscle use Breasts: no masses Cardiovascular: normal peripheral pulses, normal rate, regular rhythm, no JVD Abdomen: normal bowel sounds, soft, non tender, no organomegaly Genitourinary: normal external genitalia Extremities: no cyanosis Skin: rash, lesions, ulcers 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 normal, no motor/sensory deficits Laboratory Tests 12/26/16 06:45: White Blood Count 9.2, Red Blood Count 2.65L, Hemoglobin 7.5L, Hematocrit 22.5L , Mean Corpuscular Volume 85, Mean Corpuscular Hemoglobin 28.5, Mean Corpuscular Hemoglobin Concent 33.5, Red Cell Distribution Width 18.8H, Platelet Count 222, Mean Platelet Volume 6.2L, Neutrophils (%) (Auto) , Lymphocytes (%) (Auto) , Monocytes (%) (Auto) , Eosinophils (%) (Auto) , Basophils (%) (Auto) , Differential Total Cells Counted 100, Neutrophils % ( Manual) 83H, Lymphocytes % (Manual) 13L, Monocytes % (Manual) 4, Eosinophils % ( Manual) 0, Basophils % (Manual) 0, Band Neutrophils 0, Platelet Estimate Adequate, Platelet Morphology Normal, Hypochromasia 2+, Anisocytosis 2+, Target Cells 1+, Sodium Level 154H, Potassium Level 4.4, Chloride Level 116H, Carbon Dioxide Level 29, Anion Gap 9, Blood Urea Nitrogen 45H, Creatinine 0.8, Estimat Glomerular Filtration Rate , Glucose Level 110H, Calcium Level 7.9L, Phosphorus Level 3.3, Magnesium Level 2.2 Current Medications Medications (Trade) Dose Ordered Sig/David Route PRN Reason Start Time Stop Time Status Last Admin Dose Admin Acetaminophen (Tylenol) 650 mg Q4H PRN ORAL fever 12/15/16 09:45 01/14/17 09:44 Dextrose (Dextrose 50%) STAT PRN IV Hypoglycemia 12/25/16 04:00 01/24/17 03:59 Ertapenem/Sodium Chloride (INVanz/Sodium Chloride) 55 ml @ 110 mls/hr Q24H IVPB 12/19/16 12:00 01/21/17 23:59 12/26/16 12:51 Heparin Sodium (Porcine) (Heparin 5000 units/ml) 5,000 units EVERY 12 HOURS SUBQ 12/15/16 11:00 01/14/17 10:59 12/26/16 21:37 Insulin Aspart (NovoLOG) BEFORE MEALS AND HS SUBQ 12/25/16 06:30 01/24/17 06:29 12/26/16 13:24 Metoprolol Tartrate (Lopressor) 25 mg Q12HR PEG 12/19/16 21:00 01/18/17 20:59 12/26/16 21:32 Morphine Sulfate (Morphine Sulfate) 2 mg Q4H PRN IVP For Pain 12/22/16 13:45 12/29/16 13:44 12/26/16 19:26 Nitroglycerin (Ntg) 0.4 mg Q5M PRN SL Prn Chest Pain 12/15/16 09:45 01/14/17 09:44 Ondansetron HCl 4 mg 4 mg Q6H PRN IVP Nausea & Vomiting 12/15/16 11:45 01/14/17 11:44 Sodium Hypochlorite (Dakin's Half Strength) 1 applic DAILY TOPIC 12/15/16 11:00 01/14/17 10:59 12/26/16 15:56 EVENS CASTELLON Dec 26, 2016 23:40
[2016-12-27] VITALS: BP 97/54
[2016-12-27 04:00] VITALS: BP 121/63
[2016-12-27] MEDS: Morphine Sulfate 2mg/ml Inj IVP PRN (04:30)
[2016-12-27] MEDS: NovoLOG Insulin Flexpen SUBQ SCH ×2 (06:06→13:16)
[2016-12-27 07:59] LABS: BASOPHILS % (AUTO) 0.9 % (0.0-2.0); EOSINOPHILS % (AUTO) 1.1 % (0.0-3.0); LYMPHOCYTES % (AUTO) 12.1 % (20.0-45.0); MEAN CORPUSCULAR HEMOGLOBIN 28.4 PG (27.0-31.0); MEAN CORPUSCULAR HGB CONC 32.6 G/DL (32.0-36.0); MEAN CORPUSCULAR VOLUME 87 FL (80-99); NEUTROPHILS % (AUTO) 81.9 % (45.0-75.0); PLATELET COUNT 266 K/UL (150-450); RED BLOOD COUNT 2.85 M/UL (4.20-5.40); WHITE BLOOD COUNT 9.5 K/UL (4.8-10.8)
[2016-12-27 08:00] VITALS: BP 119/61
[2016-12-27 08:03] LABS: ANION GAP 11 (5-15); CALCIUM 8.3 mg/dL (8.6-10.2); CARBON DIOXIDE 28 mEQ/L (20-30); CHLORIDE 115 mEQ/L (98-107); CREATININE 0.8 mg/dL (0.5-0.9); HEMOLYSIS 2; POTASSIUM 4.7 mEQ/L (3.4-4.9); SODIUM 154 mEQ/L (135-145)
[2016-12-27] MEDS ORDERED: ACETAMINOP160 MG/5 M ORAL (09:49)
[2016-12-27] MEDS ORDERED: DAKIN'S1 APPLI1 TOPIC (09:50)
[2016-12-27] MEDS ORDERED: DAKIN'S473 ML MC (09:56)
[2016-12-27] MEDS: Metoprolol 25mg tab PEG SCH (10:01)
[2016-12-27] MEDS: Heparin 5000 units/ml inj SUBQ SCH (10:03)
[2016-12-27] MEDS ORDERED: NOVOLOG100 UNITS1 (10:04)
[2016-12-27] MEDS ORDERED: METOPROLOL TART25 MG GT (10:06)
[2016-12-27] MEDS ORDERED: MORPHINE SU2 MG/1 M1 IV (10:09)
[2016-12-27] MEDS ORDERED: ZOFRAN 4 MG4 MG/2 ML IV (10:11)
[2016-12-27] MEDS ORDERED: INVANZ1 GM IVPB (10:16)
[2016-12-27 10:17] VITALS: BP 134/72
[2016-12-27] MEDS ORDERED: HEPARIN SO5000 UNIT2 SUBQ (10:35)
--- NOTE | 2016-12-27 10:37 | GI Progress Note ---
Assessment/Plan Problems: (1) Diabetes mellitus ICD Codes: E11.9 - Type 2 diabetes mellitus without complications SNOMED: 36756831 (2) Dysphagia ICD Codes: R13.10 - Dysphagia, unspecified SNOMED: 06260115, 238455154 (3) Encounter for PEG (percutaneous endoscopic gastrostomy) ICD Codes: Z43.1 - Encounter for attention to gastrostomy SNOMED: 741801549, 982395009 (4) Severe malnutrition ICD Codes: E43 - Unspecified severe protein-calorie malnutrition SNOMED: 12765247 (5) Hypoalbuminemia ICD Codes: E88.09 - Other disorders of plasma-protein metabolism, not elsewhere classified SNOMED: 502215133 (6) Leukocytosis ICD Codes: D72.829 - Elevated white blood cell count, unspecified SNOMED: 301834599, 657115937 (7) Iron deficiency ICD Codes: E61.1 - Iron deficiency SNOMED: 53283250 Status: unchanged Status Narrative Discussed with Dr. Miles. Assessment/Plan SUMMARY OF FINDINGS: 1. Severe atrophic gastritis. 2. Two gastric polyps removed with the snare polypectomy technique. 3. Status post successful percutaneous endoscopic gastrostomy placement. gastric biopsy >> no meta/dysplasia RECOMMENDATIONS: 1. Abdominal binder. 2. Elevate the head of the bed at all times. 3. G-tube flush. 4. G-tube care. 5. GTFs ok for DC per GI standpoint cdiff negative swallow video for oral grat pending abx monitor H&H >> transfused prn PPI daily given history of severe gastritis iron panel >> unremarkable bowel regime fu labs Subjective Subjective limited Objective Last 24 Hour Vital Signs Date Time Temp Pulse Resp B/P Pulse Ox O2 Delivery O2 Flow Rate FiO2 12/27/16 10:17 77 134/72 12/27/16 10:01 77 134/72 12/27/16 08:00 98.2 73 20 119/61 100 Nasal Cannula 3.0 12/27/16 04:00 98.2 74 16 121/63 99 Nasal Cannula 3.0 12/27/16 00:00 98.1 65 18 97/54 98 Nasal Cannula 3.0 12/26/16 21:32 66 118/68 12/26/16 20:52 Nasal Cannula 4.0 36 12/26/16 20:52 97 Nasal Cannula 4.0 36 12/26/16 20:00 97.5 66 20 118/61 100 Room Air 12/26/16 19:56 96.8 12/26/16 16:00 96.8 63 20 128/66 100 Room Air 12/26/16 11:58 97.9 75 18 114/64 100 Nasal Cannula 2.0 12/26/16 10:51 75 114/61 Intake and Output 12/26/16 12/27/16 19:00 07:00 Intake Total 595 ml 885 ml Output Total 400 ml 2750 ml Balance 195 ml -1865 ml Intake Free Water 100 ml 300 ml Tube Feeding 495 ml 585 ml Output Urine Total 400 ml 600 ml Stool Total 2150 ml Laboratory Tests Test 12/27/16 06:00 White Blood Count 9.5 K/UL (4.8-10.8) Red Blood Count 2.85 M/UL (4.20-5.40) L Hemoglobin 8.1 G/DL (12.0-16.0) L Hematocrit 24.8 % (37.0-47.0) L Mean Corpuscular Volume 87 FL (80-99) Mean Corpuscular Hemoglobin 28.4 PG (27.0-31.0) Mean Corpuscular Hemoglobin Concent 32.6 G/DL (32.0-36.0) Red Cell Distribution Width 19.0 % (11.6-14.8) H Platelet Count 266 K/UL (150-450) Mean Platelet Volume 7.0 FL (6.5-10.1) Neutrophils (%) (Auto) 81.9 % (45.0-75.0) H Lymphocytes (%) (Auto) 12.1 % (20.0-45.0) L Monocytes (%) (Auto) 4.0 % (1.0-10.0) Eosinophils (%) (Auto) 1.1 % (0.0-3.0) Basophils (%) (Auto) 0.9 % (0.0-2.0) Sodium Level 154 mEQ/L (135-145) H Potassium Level 4.7 mEQ/L (3.4-4.9) Chloride Level 115 mEQ/L (98-107) H Carbon Dioxide Level 28 mEQ/L (20-30) Anion Gap 11 (5-15) Blood Urea Nitrogen 47 mg/dL (7-23) H Creatinine 0.8 mg/dL (0.5-0.9) Estimat Glomerular Filtration Rate mL/min (>60) Glucose Level 107 mg/dL (74-106) H Calcium Level 8.3 mg/dL (8.6-10.2) L Height (Feet): 5 Height (Inches): 3.00 Weight (Pounds): 140 General Appearance: no apparent distress, alert, thin Cardiovascular: normal rate Respiratory/Chest: other - 2LNC Abdominal Exam: GT site - c/d/i Objective more alert today DATE OF PROCEDURE: 12/19/2016 SURGEON: Ruben Miles M.D. PROCEDURE: Upper endoscopy with snare polypectomy biopsy and G-tube placement. SUMMARY OF FINDINGS: 1. Severe atrophic gastritis. 2. Two gastric polyps removed with the snare polypectomy technique. 3. Status post successful percutaneous endoscopic gastrostomy placement. RECOMMENDATIONS: 1. Abdominal binder. 2. Elevate the head of the bed at all times. 3. G-tube flush. 4. G-tube care. 5. Start tube feeding later today. 6. The patient is currently on ceftriaxone. DATE OF PROCEDURE: 10/23/2015 SURGEON: Ruben Miles M.D. PROCEDURE: Upper endoscopy with biopsy and colonoscopy with biopsy and polypectomy. INDICATION: Anemia, screening colonoscopy evaluation, abdominal pain, and GERD. SUMMARY OF FINDINGS: 1. Severe gastritis, status post biopsy. 2. Duodenal polyp, status post biopsy. 3. Inflammatory looking polyp in the antrum of the stomach, status post biopsy. 4. Paraesophageal hernia. 5. Two colonic polyp removed, see above for details. 6. Diverticulosis. 7. Internal hemorrhoids. Lyndsay Torres N.P. Dec 27, 2016 10:37
--- NOTE | 2016-12-27 11:21 | Infectious Diseases Prog Note ---
Assessment/Plan Assessment/Plan A: The patient is an 86-year-old female Low grade fever , SP Leukocytosis, SP Sepsis, SP wound infection , osteomyelitis sacrum Wnd Cx : E. coli , Citrobacter, StrpV SP Debridement Probable UTI EColi SP Rx +ve Blood cx : CoNS SP Rx ALOC, SP Diarrhea C Diff neg SP PEG HTN DM PVD CAD Paroxysmal atrial fibrillation. History of right lower extremity DVT. Anemia PLAN: continue the patient on Invanz d# 10 / 35 ( SP IV vancomycin. and Zosyn ---> Rocephin d# 7 ) Monitor CBC Monitor BMP Subjective Constitutional: Denies: anorexia, chills, drenching sweats, fatigue, fever, no symptoms, other Allergies: Coded Allergies: NO KNOWN ALLERGIES (Unverified Allergy, Unknown, 09/05/15) Subjective afebrile Objective Vital Signs Last 24 Hour Vital Signs Date Time Temp Pulse Resp B/P Pulse Ox O2 Delivery O2 Flow Rate FiO2 12/27/16 10:17 77 134/72 12/27/16 10:01 77 134/72 12/27/16 08:00 98.2 73 20 119/61 100 Nasal Cannula 3.0 12/27/16 04:00 98.2 74 16 121/63 99 Nasal Cannula 3.0 12/27/16 00:00 98.1 65 18 97/54 98 Nasal Cannula 3.0 12/26/16 21:32 66 118/68 12/26/16 20:52 Nasal Cannula 4.0 36 12/26/16 20:52 97 Nasal Cannula 4.0 36 12/26/16 20:00 97.5 66 20 118/61 100 Room Air 12/26/16 19:56 96.8 12/26/16 16:00 96.8 63 20 128/66 100 Room Air 12/26/16 11:58 97.9 75 18 114/64 100 Nasal Cannula 2.0 Height (Feet): 5 Height (Inches): 3.00 Weight (Pounds): 140 HEENT: anicteric Respiratory/Chest: normal breath sounds Cardiovascular: normal rate Abdomen: soft, non tender, no organomegaly Laboratory Tests Test 12/27/16 06:00 White Blood Count 9.5 K/UL (4.8-10.8) Red Blood Count 2.85 M/UL (4.20-5.40) L Hemoglobin 8.1 G/DL (12.0-16.0) L Hematocrit 24.8 % (37.0-47.0) L Mean Corpuscular Volume 87 FL (80-99) Mean Corpuscular Hemoglobin 28.4 PG (27.0-31.0) Mean Corpuscular Hemoglobin Concent 32.6 G/DL (32.0-36.0) Red Cell Distribution Width 19.0 % (11.6-14.8) H Platelet Count 266 K/UL (150-450) Mean Platelet Volume 7.0 FL (6.5-10.1) Neutrophils (%) (Auto) 81.9 % (45.0-75.0) H Lymphocytes (%) (Auto) 12.1 % (20.0-45.0) L Monocytes (%) (Auto) 4.0 % (1.0-10.0) Eosinophils (%) (Auto) 1.1 % (0.0-3.0) Basophils (%) (Auto) 0.9 % (0.0-2.0) Sodium Level 154 mEQ/L (135-145) H Potassium Level 4.7 mEQ/L (3.4-4.9) Chloride Level 115 mEQ/L (98-107) H Carbon Dioxide Level 28 mEQ/L (20-30) Anion Gap 11 (5-15) Blood Urea Nitrogen 47 mg/dL (7-23) H Creatinine 0.8 mg/dL (0.5-0.9) Estimat Glomerular Filtration Rate mL/min (>60) Glucose Level 107 mg/dL (74-106) H Calcium Level 8.3 mg/dL (8.6-10.2) L Current Medications Medications (Trade) Dose Ordered Sig/David Route PRN Reason Start Time Stop Time Status Last Admin Dose Admin Acetaminophen (Tylenol) 650 mg Q4H PRN ORAL fever 12/15/16 09:45 01/14/17 09:44 Dextrose (Dextrose 50%) STAT PRN IV Hypoglycemia 12/25/16 04:00 01/24/17 03:59 Ertapenem/Sodium Chloride (INVanz/Sodium Chloride) 55 ml @ 110 mls/hr Q24H IVPB 12/19/16 12:00 01/21/17 23:59 12/26/16 12:51 Heparin Sodium (Porcine) (Heparin 5000 units/ml) 5,000 units EVERY 12 HOURS SUBQ 12/15/16 11:00 01/14/17 10:59 12/27/16 10:03 Insulin Aspart (NovoLOG) BEFORE MEALS AND HS SUBQ 12/25/16 06:30 01/24/17 06:29 12/26/16 13:24 Metoprolol Tartrate (Lopressor) 25 mg Q12HR PEG 12/19/16 21:00 01/18/17 20:59 12/27/16 10:01 Morphine Sulfate (Morphine Sulfate) 2 mg Q4H PRN IVP For Pain 12/22/16 13:45 12/29/16 13:44 12/27/16 04:30 Nitroglycerin (Ntg) 0.4 mg Q5M PRN SL Prn Chest Pain 12/15/16 09:45 01/14/17 09:44 Ondansetron HCl 4 mg 4 mg Q6H PRN IVP Nausea & Vomiting 12/15/16 11:45 01/14/17 11:44 Sodium Hypochlorite (Dakin's Half Strength) 1 applic DAILY TOPIC 12/15/16 11:00 01/14/17 10:59 12/26/16 15:56 RADHA BAILON M.D. Dec 27, 2016 11:21
[2016-12-27] MEDS: Dakin's 0.25% (Half Strength) 16oz TOPIC SCH (11:37)
[2016-12-27 12:00] VITALS: BP 135/64
--- NOTE | 2016-12-27 12:12 | General Progress Note ---
Assessment/Plan Status: stable Assessment/Plan status: Acute renal failure- mainly prerenal improved HyperCalcemia- being treated Leukocytosis / sepsis, on antibiotics other conditions mentioned in PH: -History of anemia. -Hypertension. -Diabetes type 2. -History of coronary artery disease. -Renal failure. -Paroxysmal atrial fibrillation. -History of right lower extremity deep venous thrombosis. -Arthritis. -Alzheimer's dementia. -Pacemaker in situ. Plan: Has PEG Phos and K and Mag supplement as needed- Monitor renal parameters- per orders- Per GI and ID discussed with RN ? DC ? Subjective ROS Limited/Unobtainable: No Constitutional: Reports: malaise Allergies: Coded Allergies: NO KNOWN ALLERGIES (Unverified Allergy, Unknown, 09/05/15) Objective Last 24 Hour Vital Signs Date Time Temp Pulse Resp B/P Pulse Ox O2 Delivery O2 Flow Rate FiO2 12/27/16 10:17 77 134/72 12/27/16 10:01 77 134/72 12/27/16 08:00 98.2 73 20 119/61 100 Nasal Cannula 3.0 12/27/16 04:00 98.2 74 16 121/63 99 Nasal Cannula 3.0 12/27/16 00:00 98.1 65 18 97/54 98 Nasal Cannula 3.0 12/26/16 21:32 66 118/68 12/26/16 20:52 Nasal Cannula 4.0 36 12/26/16 20:52 97 Nasal Cannula 4.0 36 12/26/16 20:00 97.5 66 20 118/61 100 Room Air 12/26/16 19:56 96.8 12/26/16 16:00 96.8 63 20 128/66 100 Room Air Intake and Output 12/26/16 12/27/16 19:00 07:00 Intake Total 595 ml 885 ml Output Total 400 ml 2750 ml Balance 195 ml -1865 ml Intake Free Water 100 ml 300 ml Tube Feeding 495 ml 585 ml Output Urine Total 400 ml 600 ml Stool Total 2150 ml Laboratory Tests 12/27/16 06:00: White Blood Count 9.5, Red Blood Count 2.85L, Hemoglobin 8.1L, Hematocrit 24.8L , Mean Corpuscular Volume 87, Mean Corpuscular Hemoglobin 28.4, Mean Corpuscular Hemoglobin Concent 32.6, Red Cell Distribution Width 19.0H, Platelet Count 266, Mean Platelet Volume 7.0, Neutrophils (%) (Auto) 81.9H, Lymphocytes (%) (Auto) 12.1L, Monocytes (%) (Auto) 4.0, Eosinophils (%) (Auto) 1.1, Basophils (%) (Auto) 0.9, Sodium Level 154H, Potassium Level 4.7, Chloride Level 115H, Carbon Dioxide Level 28, Anion Gap 11, Blood Urea Nitrogen 47H, Creatinine 0.8, Estimat Glomerular Filtration Rate , Glucose Level 107H, Calcium Level 8.3L Height (Feet): 5 Height (Inches): 3.00 Weight (Pounds): 140 General Appearance: no apparent distress Objective other PE not changed EARNEST CADET Dec 27, 2016 12:12
[2016-12-27] MEDS: Ertapenem 1 GM in NS 55 ML IVPB SCH ×2 (13:02→13:27)
[2016-12-27] MEDS ORDERED: Sterile Water Irrig 1000ml IRRIG ONE (14:34)
[2016-12-27] MEDS ORDERED: D5W 275ml ONE (14:34)
--- NOTE | 2016-12-27 16:19 | Internal Med Progress Note ---
Subjective Date of Service: Dec 27, 2016 Physician Name Bradley Davis Attending Physician Titi Cruz MD Allergies: Coded Allergies: NO KNOWN ALLERGIES (Unverified Allergy, Unknown, 09/05/15) ROS Limited/Unobtainable: Yes Subjective 86 YO F admitted with sepsis. S/P debridement sacral decubitus ulcer on . Cover for Int Med-Dr Cruz. S/P PEG placement 12/19/16. S/P transfusion . Await transfer to Rehab [facility]. Objective Last Vital Signs Date Time Temp Pulse Resp B/P Pulse Ox O2 Delivery O2 Flow Rate FiO2 12/27/16 12:00 98.8 68 20 135/64 100 Nasal Cannula 3.0 12/26/16 20:52 36 Laboratory Tests Test 12/27/16 06:00 White Blood Count 9.5 K/UL (4.8-10.8) Red Blood Count 2.85 M/UL (4.20-5.40) L Hemoglobin 8.1 G/DL (12.0-16.0) L Hematocrit 24.8 % (37.0-47.0) L Mean Corpuscular Volume 87 FL (80-99) Mean Corpuscular Hemoglobin 28.4 PG (27.0-31.0) Mean Corpuscular Hemoglobin Concent 32.6 G/DL (32.0-36.0) Red Cell Distribution Width 19.0 % (11.6-14.8) H Platelet Count 266 K/UL (150-450) Mean Platelet Volume 7.0 FL (6.5-10.1) Neutrophils (%) (Auto) 81.9 % (45.0-75.0) H Lymphocytes (%) (Auto) 12.1 % (20.0-45.0) L Monocytes (%) (Auto) 4.0 % (1.0-10.0) Eosinophils (%) (Auto) 1.1 % (0.0-3.0) Basophils (%) (Auto) 0.9 % (0.0-2.0) Sodium Level 154 mEQ/L (135-145) H Potassium Level 4.7 mEQ/L (3.4-4.9) Chloride Level 115 mEQ/L (98-107) H Carbon Dioxide Level 28 mEQ/L (20-30) Anion Gap 11 (5-15) Blood Urea Nitrogen 47 mg/dL (7-23) H Creatinine 0.8 mg/dL (0.5-0.9) Estimat Glomerular Filtration Rate mL/min (>60) Glucose Level 107 mg/dL (74-106) H Calcium Level 8.3 mg/dL (8.6-10.2) L Intake and Output 12/26/16 12/27/16 19:00 07:00 Intake Total 595 ml 885 ml Output Total 400 ml 2750 ml Balance 195 ml -1865 ml Intake Free Water 100 ml 300 ml Tube Feeding 495 ml 585 ml Output Urine Total 400 ml 600 ml Stool Total 2150 ml Objective General Appearance: mild distress, lethargic, thin EENT: PERRL/EOMI, normal ENT inspection Neck: non-tender, normal alignment Cardiovascular: normal peripheral pulses, no gallop/murmur, no JVD, irregularly irregular Respiratory/Chest: chest wall non-tender, crackles/rales, rhonchi - bilaterally , expiratory wheezing Abdomen: normal bowel sounds, non tender, soft, no organomegaly, no mass Extremities: normal range of motion, non-tender Skin: normal pigmentation, warm/dry Assessment/Plan Problem List: (1) Dysphagia Assessment & Plan: S/P PEG placement 12/19/16-See GI note-Dr Miles. (2) Hypokalemia Assessment & Plan: See nephrology note. (3) Hypernatremia (4) UTI (urinary tract infection) Assessment & Plan: E. Coli. Continue ertapenem per ID. (5) Severe malnutrition (6) Renal failure Assessment & Plan: Followed by nephrology - Dr Leone- see note. (7) Sepsis (8) Sacral decubitus ulcer, stage IV Assessment & Plan: S/P Debridement 12/14/16. Continue ertapenem per ID (9) Hypertension (10) Coronary artery disease (11) Atrial fibrillation Assessment & Plan: See cardiology note. (12) History of DVT (deep vein thrombosis) (13) Anemia Assessment & Plan: S/P transfusion 1 unit PRBC on 12/20/16 (14) Diabetes mellitus Assessment & Plan: Hyperglycemia. Add novolog sliding scale. (15) Osteomyelitis of sacrum Assessment & Plan: Continue Invanz - See ID note. Assessment/Plan Transfer to Rehab of [facility] today. BRADLEY DAVIS Dec 27, 2016 16:19
--- NOTE | 2016-12-29 16:21 | Discharge Summary ---
Discharge Summary Hospital Course Date of Admission Dec 12, 2016 at 16:43 Date of Discharge Dec 27, 2016 at 14:35 Admitting Diagnosis AMS HPI Iman Michaud is a 86 year old female who was admitted on Dec 12, 2016 at 16:43 for Altered Mental Status Hospital Course [id number] Discharge Discharge Disposition Patient was discharged to to [facility] Discharge Diagnoses: Yadi Anders NP Dec 29, 2016 16:20
--- NOTE | 2016-12-30 02:28 | Discharge Summary 2 SIG ---
DATE OF ADMISSION: 12/12/2016 DATE OF DISCHARGE: 12/27/2016 CONSULTANTS: 1. Anmol Hicks M.D. 2. Mauro Leone M.D. 3. Ruben Miles M.D. 4. She Gonzalez M.D. 5. Hal Davenport M.D. 6. Edgar Steinberg M.D. BRIEF HOSPITAL COURSE: The patient is an 86-year-old female, who presented to ED with generalized weakness and decreased oral intake for the past two days. She was apparently seen by wound care nurse, who told them decubitus ulcer may be infected. She was taken to [place] emergency room and the patient was admitted for dysphagia, generalized weakness, and probable sepsis. She came in with leukocytosis, probably secondary to sacral decubitus ulcer, which is probable source of the sepsis. She was seen by Dr. Steinberg and on 12/14/2016, she underwent excisional debridement of the necrotic sacral pressure ulcer with deep open bone biopsy on the sacrum. She was followed by Infectious Disease specialist. Pathology report showed acute osteomyelitis. Wound culture showed growth of E. coli, Citrobacter, and strep viridans. She was pancultured. Urine showed growth of E. coli and was given Rocephin. Blood culture with coagulase negative Staph. She had episodes of diarrhea, stool C. difficile was negative. The patient will need prolonged IV antibiotics for treatment of osteomyelitis. PICC line was inserted. She continued to have decreased p.o. intake and on 12/19/2016, she underwent an esophagogastroduodenoscopy with percutaneous endoscopic gastrostomy tube placement. She was tolerating feeding well. Gastric biopsy showed no metaplasia or dysplasia. She presented with electrolyte abnormalities and acute renal failure, which is mainly prerenal. Renal failure improved. She had episode of acute anemia and underwent blood transfusion. She was referred to multiple senior living facilities and was eventually accepted [facility]. The patient was discharged to [facility]. FINAL DIAGNOSES: 1. Acute osteomyelitis of the sacrum. 2. Acute renal failure. 3. Dysphagia, status post percutaneous endoscopic gastrostomy tube placement. 4. Sepsis. 5. Sacral decubitus ulcer stage 4, present on admission, status post debridement. 6. Severe protein-calorie malnutrition. 7. Urinary tract infection with E. coli. 8. Hypernatremia. 9. Hyperkalemia. 10. Atrial fibrillation with pacemaker showed normally function. 11. Coronary artery disease. 12. History of right lower extremity deep venous thrombosis. 13. Diabetes mellitus. 14. Alzheimer's dementia. 15. Acute anemia, requiring transfusion. 16. Hypercalcemia. 17. Severe atrophic gastritis. Titi Cruz M.D. I have been assigned to dictate discharge summary on this account and I was not involved in the patient's management. Yadi Anders N.P. DR: BROOK JOB#: [id number] CC: MARINA
== END 2016-12-27 14:35 | DRG 853 ==
LOC: EDBD 15:39 → EMR 16:00 → EDBEDREQ 16:14 → 2E 16:43 → EDBEDREQ 16:49 → 4W 12-15 08:45
PROC: 0QB10ZZ Excision of Sacrum, Open Approach (ICD-10-PCS; principal; 2016-12-14 13:30)
PROC: 30233N1 Transfusion of Nonautologous Red Blood Cells into Peripheral Vein, Percutaneous Approach (ICD-10-PCS; 2016-12-15)
PROC: 02HV33Z Insertion of Infusion Device into Superior Vena Cava, Percutaneous Approach (ICD-10-PCS; 2016-12-19)
PROC: 0DB68ZZ Excision of Stomach, Via Natural or Artificial Opening Endoscopic (ICD-10-PCS; 2016-12-19 08:13)
PROC: 0DH63UZ Insertion of Feeding Device into Stomach, Percutaneous Approach (ICD-10-PCS; 2016-12-19 08:13)
DX: A41.9 Sepsis, unspecified organism (principal); E43 Unspecified severe protein-calorie malnutrition; L89.154 Pressure ulcer of sacral region, stage 4; L89.524 Pressure ulcer of left ankle, stage 4; N17.9 Acute kidney failure, unspecified; G93.40 Encephalopathy, unspecified; E87.0 Hyperosmolality and hypernatremia; L89.894 Pressure ulcer of other site, stage 4; G30.9 Alzheimer's disease, unspecified; F02.80 Dementia in other diseases classified elsewhere, unspecified severity, without behavioral disturbance, psychotic disturbance, mood disturbance, and anxiety; L89.614 Pressure ulcer of right heel, stage 4; N39.0 Urinary tract infection, site not specified; M46.28 Osteomyelitis of vertebra, sacral and sacrococcygeal region; R13.10 Dysphagia, unspecified; I48.0 Paroxysmal atrial fibrillation; E86.0 Dehydration; E83.52 Hypercalcemia; E87.6 Hypokalemia; I25.10 Atherosclerotic heart disease of native coronary artery without angina pectoris; I73.9 Peripheral vascular disease, unspecified; Z95.0 Presence of cardiac pacemaker; I25.2 Old myocardial infarction; M19.90 Unspecified osteoarthritis, unspecified site; K31.7 Polyp of stomach and duodenum; Z86.718 Personal history of other venous thrombosis and embolism; Z79.01 Long term (current) use of anticoagulants; E11.9 Type 2 diabetes mellitus without complications; B96.20 Unspecified Escherichia coli [E. coli] as the cause of diseases classified elsewhere; K29.40 Chronic atrophic gastritis without bleeding; K44.9 Diaphragmatic hernia without obstruction or gangrene; K57.90 Diverticulosis of intestine, part unspecified, without perforation or abscess without bleeding; K64.8 Other hemorrhoids; I12.9 Hypertensive chronic kidney disease with stage 1 through stage 4 chronic kidney disease, or unspecified chronic kidney disease; N18.9 Chronic kidney disease, unspecified; D64.9 Anemia, unspecified; E61.1 Iron deficiency; I51.89 Other ill-defined heart diseases; B95.4 Other streptococcus as the cause of diseases classified elsewhere
CPT/HCPCS: 36415; 36569; 36600; 70450; 71010; 74000; 76937; 80048; 80053; 80202; 81001; 81003; 82330; 82550; 82553; 82728; 82803; 82962; 82977; 83036; 83540; 83550; 83605; 83690; 83735; 83880; 84100; 84134; 84484; 84550; 85007; 85025; 85610; 85730; 86140; 86850; 86900; 86901; 86920; 87040; 87070; 87075; 87081; 87086; 87181; 87205; 87493; 93005; 94003; 94150; 94664; 94760; C9399; J1815; J2250; J2405; J2430; J7620; J8499; Q2036

== ENCOUNTER 2017-01-03 07:20 | Inpatient (IN) | payer MEDICARE, BC ==
[~2017-01-03] VITALS: Ht 160 cm; Wt 43.1 kg
[2017-01-03] VITALS (12 sets, daily range): BP systolic 107–142; BP diastolic 53–79
[~2017-01-03 07:20] MED LIST changes: +ACETAMINOP160 MG/5 M ORAL; +DAKIN'S1 APPLI1 TOPIC; +DAKIN'S473 ML MC; +HEPARIN SO5000 UNIT2 SUBQ; +INVANZ1 GM IVPB; +METOPROLOL TART25 MG GT; +MORPHINE SU2 MG/1 M1 IV; +NOVOLOG100 UNITS1; +ZOFRAN 4 MG4 MG/2 ML IV; -Zosyn 3.375gm inj ONE
--- NOTE | 2017-01-03 07:24 | Emergency Room Report ---
History of Present Illness General Source: Medical Record, EMS Present Illness HPI 86 YOF BIBEMS from SNF for "abnormal labs" including "low H&H" and HyperNa 161. Patient with significant PMX - see freedom of information officer note. + history of dementia, not answering questions at this time. There are no family members present to provide collateral. Per EMR, DCed from here 4 days ago after admission for sepsis likely from sacral decub with osteomyelitis and bacteremia. She has PICC placed for mcfp IV Abx. She has KNOWN hyperNA and anemia - was tx and transfused for both. At DC on , Na was 154. H&H was 8.1/14.8. Allergies: Coded Allergies: No Known Allergies (Unverified , 12/27/13) Patient History Limited by: age, medical condition Past Medical History: see triage record, other - alzheimers, anemia, Atrial fib Past Surgical History: pacemaker, other - PICC line right AC placed 01/01 Pertinent Family History: unable to obtain Social History: Denies: alcohol use, drug use, smoking Now: No Immunizations: UTD Reviewed Nursing Documentation: PMH: Agreed, PSxH: Agreed Review of Systems All Other Systems: limited - dementia Physical Exam Sp02 EP Interpretation: reviewed, normal General Appearance: normal inspection, well appearing, no apparent distress, alert, GCS 15, non-toxic, cachetic, other - elderly appearing lady in no acute distress Head: normocephalic, atraumatic Eyes: bilateral eye EOMI, bilateral eye PERRL ENT: normal ENT inspection, hearing grossly normal, normal voice, dry mucus membranes Neck: normal inspection, full range of motion, supple, no bony tend Respiratory: normal inspection, lungs clear, normal breath sounds, no respiratory distress, no retraction, no wheezing Cardiovascular #1: regular rate, rhythm, no edema Gastrointestinal: normal inspection, normal bowel sounds, non tender, soft, no guarding, no hernia Genitourinary: no CVA tenderness Musculoskeletal: normal inspection, back normal, normal range of motion, Gaurav' s Sign negative Neurologic: normal inspection, alert, oriented x3, responsive, type caster III-XII nml as tested, motor strength/tone normal, speech normal Psychiatric: normal inspection, judgement/insight normal, mood/affect normal Skin: normal inspection, normal color, no rash, warm/dry Medical Decision Making Medicare Attestation I Nicanor Raphael MD hereby attest that the medical record entry for date of service, 09/19/16 accurately reflects signatures/notations that I made in my capacity as MD when I treated/diagnosed the above listed Medicare beneficiary. I attest that this information is true, accurate and complete to the best of my knowledge. I understand that any falsification, omission, or concealment of material fact may subject me to administrative, civil, or criminal liability. This patient warrants hospital admission for extreme of age and has a condition that cannot be treated as outpatient. Diagnostic Impression: Primary Impression: Hypernatremia Additional Impression: Anemia Qualified Codes: D64.9 - Anemia, unspecified ER Course Labs: Na 154. Hb 7. Mild DEBBIE. No leuks CXR: pacemaker seen. No PTX or PNA UA pending A: Anemia, chronic: Continues to downtrend since DC and previous transfusion. Will transfuse additional 2U PRBC Elevated Na and DEBBIE, likely dehydration, hypovolemic hypernatremia. Will give gentle NS hydration Endorsed to Dr Cruz at 845am for med/surg admission EKG Diagnostic Results Rate: normal, other - PVCs Rhythm: NSR ST Segments: no acute changes ASA given to the pt in ED: No Rhythm Strip Diag. Results EP Interpretation: yes Rate: 81 Rhythm: other - Multiple PVCs Chest X-Ray Diagnostic Results EP Interpretation: Yes Findings: no consolidation, no effusion, no pneumothorax, no acute cardiopulmonary disease Number of Views: 1 Status: improved Disposition: ADMITTED INPATIENT Condition: Serious NICANOR RAPHAEL M.D. Jan 03, 2017 07:24
[2017-01-03 08:23] LABS: MEAN CORPUSCULAR HEMOGLOBIN 27.8 PG (27.0-31.0); MEAN CORPUSCULAR HGB CONC 30.6 G/DL (32.0-36.0); MEAN CORPUSCULAR VOLUME 91 FL (80-99); MEAN PLATELET VOLUME 7.1 FL (6.5-10.1); PLATELET COUNT 416 K/UL (150-450); RED BLOOD COUNT 2.69 M/UL (4.20-5.40); RED CELL DISTRIBUTION WIDTH 20.1 % (11.6-14.8); WHITE BLOOD COUNT 8.5 K/UL (4.8-10.8)
[2017-01-03 08:39] LABS: ALANINE AMINOTRANSFERASE 13 U/L (3-33); ALBUMIN/GLOBULIN RATIO 0.5 (1.0-2.7); ANION GAP 11 (5-15); ASPARTATE AMINO TRANSFERASE 22 U/L (5-40); CALCIUM 10.4 mg/dL (8.6-10.2); CARBON DIOXIDE 26 mEQ/L (20-30); CHLORIDE 117 mEQ/L (98-107); HEMOLYSIS 3; POTASSIUM 4.8 mEQ/L (3.4-4.9); SODIUM 154 mEQ/L (135-145); TOTAL PROTEIN 5.6 g/dL (6.6-8.7)
[2017-01-03 08:43] LABS: INR 1.1 (0.9-1.1); PROTHROMBIN TIME 11.3 SEC (9.30-11.50)
[2017-01-03] MEDS ORDERED: LR 1000ml 1,000 ML IV SCH (09:00)
--- NOTE | 2017-01-03 09:42 | Diagnostic Imaging Report ---
Indication: Chest pain Technique: One view of the chest Comparison: 12/27/2013 Findings: Better inspiration currently. There is some bilateral perihilar edema and retrocardiac consolidation on the left. Pleural spaces are clear. The heart size is upper limits normal. There is a left chest unifocal pacemaker. There is a right arm PICC now present. Impression: Bilateral perihilar edema and left retrocardiac consolidation Other findings as noted
[2017-01-03 09:43] LABS: BAND NEUTROPHILS % (MANUAL) 1 % (0-8); EOSINOPHILS % (MANUAL) 5 % (0-3); LYMPHOCYTES % (MANUAL) 26 % (20-45); NEUTROPHILS % (MANUAL) 64 % (45-75); TOTAL CELLS COUNTED 100
[2017-01-03 09:44] LABS: ANISOCYTOSIS 2+; BASOPHILS % (MANUAL) 0 % (0-2); HYPOCHROMASIA 2+; PLATELET ESTIMATE INCREASED; PLATELET MORPHOLOGY NORMAL
[2017-01-03 09:45] LABS: TARGET CELLS OCCASIONAL
[2017-01-03 09:46] LABS: STOMATOCYTES OCCASIONAL
[2017-01-03] MEDS ORDERED: Milk of Magnesia 30ml Ud GT PRN (11:00)
[2017-01-03] MEDS ORDERED: Acetaminophen 650mg/20.3ml GT PRN (11:00)
--- NOTE | 2017-01-03 11:17 | Cardiology Report ---
APPROVED REPORT EKG Measurement Heart [id number] DC 80P [id number] v sense and pace
[2017-01-03] MEDS: Heparin 5000 units/ml inj SUBQ SCH ×2 (12:00→21:00)
[2017-01-03 15:37] LABS: PATH BLOOD SMEAR/OMC SENT TO PATHOLOGIST
--- NOTE | 2017-01-03 16:23 | Consultation ---
History of Present Illness General Date patient seen: Jan 03, 2017 Chief Complaint: Abnormal Labs Referring physician: Dr. Cruz Reason for Consultation: inpatient management Present Illness HPI 86 year old female with hx of dementia, decubiti ulcers, bed bound transferred from halfway because of low H/H and melvin Na, Pt can't give any history and all information is obtained from her charts. She was discharged from here 4 days ago after admission for sepsis likely from sacral decub with osteomyelitis and bacteremia. She has PICC placed for senior living IV Abx. She is admitted for further care. Allergies: Coded Allergies: No Known Allergies (Unverified , 12/27/13) Medication History Scheduled Ascorbic Acid* (Vitamin C*), 500 MG ORAL DAILY, (Reported) Aspirin (Erlin Chewable), 81 MG PO DAILY, (Reported) Ertapenem Sodium* (INVanz*), 1 GM IVPB Q24H, (Reported) Heparin Sod (Porcine) (Heparin Sodium*), 5,000 UNITS SUBQ EVERY 12 HOURS, ( Reported) Metoprolol Tartrate* (Metoprolol Tartrate*), 25 MG GT EVERY 12 HOURS, (Reported) Multivitamins* (Multivitamins*), 1 TAB ORAL DAILY, (Reported) Zinc Sulfate (Zinc Sulfate*), 220 MG ORAL DAILY, (Reported) [lisinopril], PO BID, (Reported) [provastatin], PO HS, (Reported) [sensipar], PO DAILY, (Reported) [xarelto], PO DAILY, (Reported) Scheduled PRN Bisacodyl (Dulcolax), 10 MG RC DAILY PRN for Constipation, (Reported) Hydrocodone Bit/Acetaminophen 5-325* ([place] 5-325 Tablet*), 1 TAB GT Q8HR PRN for For Pain, (Reported) Magnesium Hydroxide* (Milk Of Magnesia*), 30 ML GT DAILY PRN for Constipation, ( Reported) Na Phos,M-B/Na Phos,Di-Ba* (Fleet Enema*), 133 ML RECTAL DAILY PRN for Constipation, (Reported) Nitroglycerin (Nitroglycerin), 0.4 MG SL every 5 minutes PRN for For Pain, ( Reported) Ondansetron* (Zofran*), 4 MG IV Q6H PRN for Nausea & Vomiting, (Reported) Tramadol Hcl* (Ultram*), 50 MG GT Q8HR PRN for For Pain, (Reported) [acetaminophen], 160 MG GT TID PRN for For Pain, (Reported) Miscellaneous Medications [novolog ss], (Reported) Patient History Healthcare decision maker Resuscitation status Advanced Directive on File No Past Medical/Surgical History Past Medical/Surgical History: (1) Alzheimer's dementia (2) Decubital ulcer (3) Debility Review of Systems All Other Systems: negative except mentioned in HPI Physical Exam General Appearance: WD/WN Lines, tubes and drains: peripheral HEENT: normocephalic, atraumatic Neck: non-tender, supple Respiratory/Chest: chest wall non-tender, normal breath sounds Breasts: no masses Cardiovascular/Chest: normal rate Genitourinary/Rectal: normal genital exam Last 24 Hour Vital Signs Date Time Temp Pulse Resp B/P Pulse Ox O2 Delivery O2 Flow Rate FiO2 01/03/17 12:21 97.7 73 21 142/79 99 Nasal Cannula 2.0 01/03/17 11:40 97.0 65 20 121/57 99 Nasal Cannula 2.0 01/03/17 11:30 65 20 121/57 99 Nasal Cannula 2.0 01/03/17 10:50 76 21 134/68 98 Nasal Cannula 2.0 01/03/17 10:35 71 19 107/53 100 Nasal Cannula 2.0 01/03/17 10:20 97.0 68 18 126/62 100 Nasal Cannula 2.0 01/03/17 10:15 97.1 65 18 111/55 100 Nasal Cannula 2.0 01/03/17 10:10 97.2 69 18 127/62 98 Nasal Cannula 2.0 01/03/17 10:05 97.2 70 16 01/03/17 10:05 97.2 70 16 119/64 100 Nasal Cannula 2.0 01/03/17 09:30 97.5 68 17 122/60 100 Nasal Cannula 2.0 01/03/17 07:30 98.3 81 16 131/68 97 Nasal Cannula 2.0 01/03/17 07:30 81 16 Nasal Cannula 2.0 01/03/17 07:15 98.2 52 16 119/65 98 Nasal Cannula 2.0 Laboratory Tests Test 01/03/17 07:45 White Blood Count 8.5 K/UL (4.8-10.8) Red Blood Count 2.69 M/UL (4.20-5.40) L Hemoglobin 7.5 G/DL (12.0-16.0) L Hematocrit 24.4 % (37.0-47.0) L Mean Corpuscular Volume 91 FL (80-99) Mean Corpuscular Hemoglobin 27.8 PG (27.0-31.0) Mean Corpuscular Hemoglobin Concent 30.6 G/DL (32.0-36.0) L Red Cell Distribution Width 20.1 % (11.6-14.8) H Platelet Count 416 K/UL (150-450) Mean Platelet Volume 7.1 FL (6.5-10.1) Neutrophils (%) (Auto) % (45.0-75.0) Lymphocytes (%) (Auto) % (20.0-45.0) Monocytes (%) (Auto) % (1.0-10.0) Eosinophils (%) (Auto) % (0.0-3.0) Basophils (%) (Auto) % (0.0-2.0) Differential Total Cells Counted 100 Neutrophils % (Manual) 64 % (45-75) Lymphocytes % (Manual) 26 % (20-45) Monocytes % (Manual) 4 % (1-10) Eosinophils % (Manual) 5 % (0-3) H Basophils % (Manual) 0 % (0-2) Band Neutrophils 1 % (0-8) Platelet Estimate Increased H Platelet Morphology Normal Hypochromasia 2+ Anisocytosis 2+ Target Cells Occasional Stomatocytes Occasional Erythrocyte Sedimentation Rate Pending Reticulocyte Count Pending Prothrombin Time 11.3 SEC (9.30-11.50) Prothromb Time International Ratio 1.1 (0.9-1.1) Activated Partial Thromboplast Time 32 SEC (23-33) Sodium Level 154 mEQ/L (135-145) H Potassium Level 4.8 mEQ/L (3.4-4.9) Chloride Level 117 mEQ/L (98-107) H Carbon Dioxide Level 26 mEQ/L (20-30) Anion Gap 11 (5-15) Blood Urea Nitrogen 54 mg/dL (7-23) H Creatinine 1.0 mg/dL (0.5-0.9) H Estimat Glomerular Filtration Rate mL/min (>60) Glucose Level 118 mg/dL (74-106) H Uric Acid Pending Calcium Level 10.4 mg/dL (8.6-10.2) H Phosphorus Level Pending Magnesium Level Pending Iron Level Pending Unsaturated Iron Binding Pending Total Bilirubin < 0.2 mg/dL (0.0-1.2) Aspartate Amino Transf (AST/SGOT) 22 U/L (5-40) Alanine Aminotransferase (ALT/SGPT) 13 U/L (3-33) Alkaline Phosphatase 68 U/L (35-104) Lactate Dehydrogenase Pending Total Creatine Kinase Pending Total Protein 5.6 g/dL (6.6-8.7) L Albumin 2.0 g/dL (3.5-5.2) L Globulin 3.6 g/dL Albumin/Globulin Ratio 0.5 (1.0-2.7) L Carcinoembryonic Antigen Pending Vitamin B12 Level Pending Thyroid Stimulating Hormone (TSH) Pending Free Thyroxine Pending Free Triiodothyronine Pending Height (Feet): 5 Height (Inches): 3.00 Weight (Pounds): 95 Medications Current Medications Medications (Trade) Dose Ordered Sig/David Route PRN Reason Start Time Stop Time Status Last Admin Dose Admin Acetaminophen (Tylenol) 160 mg TID PRN GT Mild Pain/Temp > 100.5 01/03/17 11:00 02/02/17 10:59 Ascorbic Acid (Vitamin C) 500 mg DAILY GT 01/04/17 09:00 02/03/17 08:59 Bisacodyl (Dulcolax) 10 mg DAILYPRN PRN RECTAL Constipation 01/03/17 11:00 02/02/17 10:59 Dextrose (D5W 1000ml) 1,000 ml @ 75 mls/hr [id number] IV 01/03/17 11:30 02/02/17 11:29 Dextrose (Dextrose 50%) STAT PRN IV Hypoglycemia 01/03/17 11:00 02/02/17 10:59 Heparin Sodium (Porcine) (Heparin 5000 units/ml) 5,000 units EVERY 12 HOURS SUBQ 01/03/17 12:00 02/02/17 11:59 Magnesium Hydroxide (Mom) 30 ml DAILYPRN PRN GT Constipation 01/03/17 11:00 02/02/17 10:59 Metoprolol Tartrate (Lopressor) 25 mg Q12HR GT 01/03/17 21:00 02/02/17 20:59 Tramadol HCl (Ultram) 50 mg Q8H PRN GT Moderate Pain (Pain Scale 4-6) 01/03/17 11:00 01/10/17 10:59 Zinc Sulfate (Zinc Sulfate) 220 mg DAILY ORAL 01/04/17 09:00 02/03/17 08:59 Assessment/Plan Problem List: (1) Anemia ICD Codes: D64.9 - Anemia, unspecified SNOMED: 936935447 Qualifiers: Qualified Codes: D64.9 - Anemia, unspecified (2) Hypernatremia ICD Codes: E87.0 - Hyperosmolality and hypernatremia SNOMED: 11966338 (3) Debility ICD Codes: R53.81 - Other malaise SNOMED: 53243459 (4) Decubital ulcer ICD Codes: L89.90 - Pressure ulcer of unspecified site, unspecified stage SNOMED: 507948107 (5) Alzheimer's dementia ICD Codes: G30.9 - Alzheimer's disease, unspecified SNOMED: 26292149 (6) Pacemaker ICD Codes: Z95.0 - Presence of cardiac pacemaker SNOMED: 250705306, 619679053 (7) Attention to G-tube ICD Codes: Z43.1 - Encounter for attention to gastrostomy SNOMED: 414671819, 864556970 Assessment/Plan iv fluids IV hydration check electrolytes gtube feeding check h/h in am EVENS CASTELLON Jan 03, 2017 16:23
[2017-01-03 16:35] LABS: THYROID STIMULATING HORMONE 1.15 uIU/mL (0.300-4.500)
[2017-01-03 17:06] LABS: MAGNESIUM 2.2 mg/dL (1.7-2.5); PHOSPHORUS 2.4 mg/dL (2.5-4.8); URIC ACID 6.8 mg/dL (3.0-7.5)
[2017-01-03 17:28] LABS: RETICULOCYTE COUNT 2.1 % (0.0-2.0)
[2017-01-03 17:56] LABS: INR 1.1 (0.9-1.1); PROTHROMBIN TIME 11.5 SEC (9.30-11.50)
--- NOTE | 2017-01-03 19:24 | History & Physical ---
History and Physical History & Physicial Dictated for Int Med-Dr Cruz no. [id number]. RICKY DAVIS Jan 03, 2017 19:24
[2017-01-03] MEDS: Metoprolol 25mg tab GT SCH (22:26)
[2017-01-03] MEDS: traMADol 50mg tab GT PRN (22:26)
[2017-01-04] VITALS: BP 141/81
[2017-01-04 01:53] LABS: APPEARANCE,URINE CLEAR; KETONES,URINE NEGATIVE (NEGATIVE); LEUKOCYTE ESTERASE ,URINE 2+ (NEGATIVE); NITRITE,URINE NEGATIVE (NEGATIVE); PH,URINE 8 (4.5-8.0); PROTEIN,URINE 2+ (NEGATIVE); UROBILINOGEN,URINE NORMAL MG/DL (0.0-1.0)
--- NOTE | 2017-01-04 02:59 | History and Physical Report ---
DATE OF ADMISSION: 01/03/2017 CHIEF COMPLAINT: The patient is an 86-year-old female, presents with chief complaint of abnormal laboratories. HISTORY OF PRESENT ILLNESS: The patient is a resident of rehabilitation at [facility]. The patient was admitted to [facility] earlier this month. The patient was discharged with a diagnosis of osteomyelitis of the sacrum. The patient was receiving intravenous antibiotics at rehabilitation center at [place]. According to staff at [facility] [place], the patient had low hemoglobin and hematocrit, and hypernatremia with recent laboratories. The patient was transported to [facility]. The patient was found to have sodium of 154. The patient was found to be anemic with hemoglobin and hematocrit of 7.5 and 24.4. The patient was admitted for severe anemia and hypernatremia. REVIEW OF SYSTEMS: Unable to assess secondary to the patient's mental condition. PAST MEDICAL HISTORY: Significant for, 1. Hypertension. 2. Diabetes, type 2. 3. Peripheral vascular disease. 4. Coronary artery disease, status post non-ST elevated myocardial infarction. 5. Paroxysmal atrial fibrillation. 6. Deep venous thrombosis of the right lower extremity, on Xarelto. 7. Anemia. 8. Arthritis. 9. History of renal failure. 10. Sacral osteomyelitis as above. PAST SURGICAL HISTORY: Significant for Biotronik pacemaker implantation. CURRENT MEDICATIONS: 1. Vitamin C 500 mg one tablet p.o. daily. 2. Aspirin 81 mg one tablet p.o. daily. 3. Invanz 1 g intravenous q.24 h. 4. Heparin 5000 units subcutaneously twice daily. 5. [place] 5/325 mg one tablet p.o. q.8 h. p.r.n. 6. Metoprolol 25 mg one tablet p.o. twice daily. 7. Multivitamin one tablet p.o. daily. 8. Nitroglycerin 0.4 mg sublingual. 9. Zofran 4 mg intravenous p.r.n. nausea and vomiting. 10. Tramadol 50 mg one tablet p.o. q.8 h. p.r.n. 11. Zinc sulfate 220 mg one tablet p.o. daily. 12. Tylenol 650 mg per G-tube p.r.n. 13. Lisinopril 20 mg one tablet p.o. twice daily. 14. NovoLog sliding scale. 15. Pravastatin 40 mg one tablet p.o. nightly. 16. Sensipar of an unknown dose daily. 17. Xarelto of an unknown dose daily. ALLERGIES: No known drug allergies. SOCIAL HISTORY: The patient is resident of rehabilitation at [facility]. The patient has several grown daughters. PHYSICAL EXAMINATION: VITAL SIGNS: Temperature 97 degrees, respirations 20, pulse 65, blood pressure 110/57, and pulse ox 99% on 2 liters of nasal cannula. GENERAL: The patient is a thin-appearing, frail female, in no apparent distress. HEENT: Eyes, pupils are equal and responsive to light and accommodation. Extraocular movements are intact. NECK: Supple without lymphadenopathy. CHEST: Lungs are clear to auscultation bilaterally without wheezes or rales. CARDIOVASCULAR: Regular rhythm and rate. S1 and S2 are normal without murmurs, rubs, or gallops. ABDOMEN: Soft, nontender, and nondistended. Positive bowel sounds. No evidence of hepatosplenomegaly. Currently no rebound or no guarding. EXTREMITIES: Negative for clubbing, cyanosis, or edema. RECTAL/GENITAL: Refused. NEUROLOGIC: Unable to assess secondary to the patient's mental state. LABORATORY STUDIES: WBC 8.5, hemoglobin 10.5, hematocrit 24.4, and platelets 416,000. Sodium 154, potassium 4.8, chloride 117, CO2 26, BUN 54, creatinine 1.0, and glucose 118. Chest x-ray revealed bilateral perihilar edema with a left retrocardiac consolidation. ASSESSMENT: This is an 86-year-old female with, 1. Severe anemia. 2. Hypernatremia. 3. Left pneumonia. 4. Hypertension. 5. Diabetes, type 2. 6. Peripheral vascular disease. 7. Coronary artery disease. 8. Paroxysmal atrial fibrillation. 9. Right lower extremity deep venous thrombosis. 10. Arthritis. 11. Chronic renal failure. TREATMENT: 1. Anemia. The patient has been typed and crossed for 2 units of packed RBCs. The patient will be transfused 2 units of packed RBC when available. 2. Hypernatremia. The patient is currently receiving D5 normal saline intravenously. 3. Left pneumonia. This is concerning, considering the patient has been on antibiotics at the [facility]. A pulmonary consultation will be obtained with Dr. She Gonzalez. We will follow recommendations of Pulmonary. This may be healthcare-acquired pneumonia. 4. Hypertension. Continue metoprolol as above. 5. Diabetes, type 2. Continue NovoLog sliding scale. 6. Peripheral vascular disease. 7. Coronary artery disease, status post non-ST elevated myocardial infarction. 8. Paroxysmal atrial fibrillation. A cardiology consultation is pending. Continue Xarelto. 9. Right lower extremity deep venous thrombosis. Continue Xarelto. 10. Arthritis. 11. Osteomyelitis of the sacrum. Bradley Holland M.D. DR: SONYA JOB#: [id number] CC:
[2017-01-04 03:35] LABS: BACTERIA,URINE FEW /HPF; RBC,URINE 0-2 /HPF (0 - 2); SQUAMOUS EPITHELIAL CELL,UR FEW /LPF (NONE/OCC); WBC,URINE 15-20 /HPF (0 - 2)
[2017-01-04 03:36] LABS: TRANSITIONAL EPI CELLS,URINE FEW /LPF
[2017-01-04 04:00] VITALS: BP 141/72
[2017-01-04 06:47] LABS: BASOPHILS % (AUTO) 1.4 % (0.0-2.0); EOSINOPHILS % (AUTO) 4.6 % (0.0-3.0); LYMPHOCYTES % (AUTO) 16.9 % (20.0-45.0); MEAN CORPUSCULAR HEMOGLOBIN 29.1 PG (27.0-31.0); MEAN CORPUSCULAR HGB CONC 32.8 G/DL (32.0-36.0); MEAN CORPUSCULAR VOLUME 89 FL (80-99); MEAN PLATELET VOLUME 7.3 FL (6.5-10.1); MONOCYTES % (AUTO) 8.2 % (1.0-10.0); PLATELET COUNT 373 K/UL (150-450); RED BLOOD COUNT 3.88 M/UL (4.20-5.40); RED CELL DISTRIBUTION WIDTH 17.1 % (11.6-14.8); WHITE BLOOD COUNT 7.4 K/UL (4.8-10.8)
[2017-01-04 07:06] LABS: ALANINE AMINOTRANSFERASE 14 U/L (3-33); ALBUMIN/GLOBULIN RATIO 0.4 (1.0-2.7); ANION GAP 12 (5-15); ASPARTATE AMINO TRANSFERASE 26 U/L (5-40); CALCIUM 10.1 mg/dL (8.6-10.2); CARBON DIOXIDE 24 mEQ/L (20-30); CHLORIDE 115 mEQ/L (98-107); CREATININE 0.9 mg/dL (0.5-0.9); HEMOLYSIS 5; POTASSIUM 4.6 mEQ/L (3.4-4.9); SODIUM 151 mEQ/L (135-145); TOTAL PROTEIN 5.6 g/dL (6.6-8.7)
[2017-01-04 07:46] LABS: CORTISOL LC 17.8 ug/dL (.)
[2017-01-04 07:58] VITALS: BP 121/73
[2017-01-04] MEDS: Zinc Sulfate 220mg cap ORAL SCH (08:59)
[2017-01-04] MEDS: Metoprolol 25mg tab GT SCH ×2 (08:59→20:38)
[2017-01-04] MEDS: Ascorbic Acid 500mg tab GT SCH (08:59)
[2017-01-04] MEDS: Heparin 5000 units/ml inj SUBQ SCH ×2 (09:01→20:39)
--- NOTE | 2017-01-04 10:16 | Diagnostic Imaging Report ---
Indication:Elevated Bun and Creatinine. Technique: Grayscale and duplex Doppler imaging of the kidneys performed. Comparison: None Findings: Randolph catheter is noted. The urinary bladder is distended despite this. Correlate clinically. IVC is unremarkable. There are multiple cysts within both kidneys. Prominent bilobed cyst in the right kidney noted measuring 3.7 and a 2.0 CM. There is no hydronephrosis or obvious stones. Both kidneys measure between 9 and 10 cm in length. Impression: Multiple bilateral renal cysts. Randolph catheter
[2017-01-04 11:48] VITALS: BP 149/82
[2017-01-04 16:00] VITALS: BP 112/57
[2017-01-04 19:00] VITALS: BP 144/72
--- NOTE | 2017-01-04 19:55 | Internal Med Progress Note ---
Subjective Date of Service: Jan 04, 2017 Physician Name Bradley Davis Attending Physician Titi Cruz MD Current Medications Medications (Trade) Dose Ordered Sig/David Route PRN Reason Start Time Stop Time Status Last Admin Dose Admin Acetaminophen (Tylenol) 160 mg TID PRN GT Mild Pain/Temp > 100.5 01/03/17 11:00 02/02/17 10:59 Ascorbic Acid (Vitamin C) 500 mg DAILY GT 01/04/17 09:00 02/03/17 08:59 01/04/17 08:59 Bisacodyl (Dulcolax) 10 mg DAILYPRN PRN RECTAL Constipation 01/03/17 11:00 02/02/17 10:59 Dextrose (D5W 1000ml) 1,000 ml @ 75 mls/hr [id number] IV 01/03/17 11:30 02/02/17 11:29 01/04/17 06:15 Dextrose (Dextrose 50%) STAT PRN IV Hypoglycemia 01/03/17 11:00 02/02/17 10:59 Heparin Sodium (Porcine) (Heparin 5000 units/ml) 5,000 units EVERY 12 HOURS SUBQ 01/03/17 12:00 02/02/17 11:59 01/04/17 09:01 Magnesium Hydroxide (Mom) 30 ml DAILYPRN PRN GT Constipation 01/03/17 11:00 02/02/17 10:59 Metoprolol Tartrate (Lopressor) 25 mg Q12HR GT 01/03/17 21:00 02/02/17 20:59 01/04/17 08:59 Tramadol HCl (Ultram) 50 mg Q8H PRN GT Moderate Pain (Pain Scale 4-6) 01/03/17 11:00 01/10/17 10:59 01/03/17 22:26 Zinc Sulfate (Zinc Sulfate) 220 mg DAILY ORAL 01/04/17 09:00 02/03/17 08:59 01/04/17 08:59 Allergies: Coded Allergies: No Known Allergies (Unverified , 12/27/13) ROS Limited/Unobtainable: Yes Subjective 86 YO F admitted with anemia and hypernatremia. Cover for Int Med-Dr Cruz. Objective Last Vital Signs Date Time Temp Pulse Resp B/P Pulse Ox O2 Delivery O2 Flow Rate FiO2 01/04/17 16:00 97.7 74 20 112/57 99 Nasal Cannula 2.0 General Appearance: moderate distress, cachetic, lethargic, thin EENT: PERRL/EOMI, normal ENT inspection Neck: non-tender, normal alignment, supple, normal inspection Cardiovascular: normal peripheral pulses, normal rate, regular rhythm, no gallop/murmur, no JVD Respiratory/Chest: decreased breath sounds, crackles/rales, rhonchi - bilaterally, expiratory wheezing Abdomen: non tender, soft, no organomegaly, no mass, decreased bowel sounds Skin: normal pigmentation, warm/dry Laboratory Tests Test 01/04/17 00:00 01/04/17 05:55 Urine Color Pale yellow Urine Appearance Clear Urine pH 8 (4.5-8.0) Urine Specific [place] 1.010 (1.005-1.035) Urine Protein 2+ (NEGATIVE) H Urine Glucose (UA) Negative (NEGATIVE) Urine Ketones Negative (NEGATIVE) Urine Occult Blood Negative (NEGATIVE) Urine Nitrite Negative (NEGATIVE) Urine Bilirubin Negative (NEGATIVE) Urine Urobilinogen Normal MG/DL (0.0-1.0) Urine Leukocyte Esterase 2+ (NEGATIVE) H Urine RBC 0-2 /HPF (0 - 2) Urine WBC 15-20 /HPF (0 - 2) H Urine Squamous Epithelial Cells Few /LPF (NONE/OCC) Urine Transitional Epithelial Cells Few /LPF (NONE) H Urine Bacteria Few /HPF (NONE) Urine Eosinophils Rare Urine Osmolality Pending Urine Random Sodium 130 mmol/L Urine Random Chloride 93 mmol/L Urine Potassium Timed 41 mmol/L White Blood Count 7.4 K/UL (4.8-10.8) Red Blood Count 3.88 M/UL (4.20-5.40) L Hemoglobin 11.3 G/DL (12.0-16.0) #L Hematocrit 34.5 % (37.0-47.0) #L Mean Corpuscular Volume 89 FL (80-99) Mean Corpuscular Hemoglobin 29.1 PG (27.0-31.0) Mean Corpuscular Hemoglobin Concent 32.8 G/DL (32.0-36.0) Red Cell Distribution Width 17.1 % (11.6-14.8) H Platelet Count 373 K/UL (150-450) Mean Platelet Volume 7.3 FL (6.5-10.1) Neutrophils (%) (Auto) 69.0 % (45.0-75.0) Lymphocytes (%) (Auto) 16.9 % (20.0-45.0) L Monocytes (%) (Auto) 8.2 % (1.0-10.0) Eosinophils (%) (Auto) 4.6 % (0.0-3.0) H Basophils (%) (Auto) 1.4 % (0.0-2.0) Sodium Level 151 mEQ/L (135-145) H Potassium Level 4.6 mEQ/L (3.4-4.9) Chloride Level 115 mEQ/L (98-107) H Carbon Dioxide Level 24 mEQ/L (20-30) Anion Gap 12 (5-15) Blood Urea Nitrogen 46 mg/dL (7-23) H Creatinine 0.9 mg/dL (0.5-0.9) Estimat Glomerular Filtration Rate mL/min (>60) Glucose Level 103 mg/dL (74-106) Calcium Level 10.1 mg/dL (8.6-10.2) Total Bilirubin < 0.2 mg/dL (0.0-1.2) Aspartate Amino Transf (AST/SGOT) 26 U/L (5-40) Alanine Aminotransferase (ALT/SGPT) 14 U/L (3-33) Alkaline Phosphatase 75 U/L (35-104) Total Protein 5.6 g/dL (6.6-8.7) L Albumin 1.7 g/dL (3.5-5.2) L Globulin 3.9 g/dL Albumin/Globulin Ratio 0.4 (1.0-2.7) L Microbiology Date/Time Source Procedure Growth Status 01/03/17 14:33 Sacral Wound Gram Stain - Final Resulted 01/03/17 14:33 Sacral Wound Wound Culture Pending Resulted Intake and Output 01/03/17 01/04/17 19:00 07:00 Intake Total 75 ml 1388 ml Output Total 500 ml 1100 ml Balance -425 ml 288 ml Intake Oral 0 ml Free Water 50 ml IV Total 75 ml 825 ml Tube Feeding 513 ml Output Urine Total 500 ml 1100 ml Assessment/Plan Problem List: (1) Pneumonia (2) Hypertension Assessment & Plan: Cont lopressor (3) Diabetes mellitus (4) Peripheral vascular disease (5) Coronary artery disease (6) Atrial fibrillation (7) DVT (deep venous thrombosis) (8) Renal failure (9) Anemia Assessment & Plan: S/P transfusion 2 units PRBC on 01/03/17 (10) Alzheimer's dementia (11) Hypernatremia (12) Pacemaker Status: not improved BRADLEY DAVIS Jan 04, 2017 19:55
--- NOTE | 2017-01-04 22:24 | Pulmonology Progress Note ---
Assessment/Plan Problems: (1) Anemia (2) Hypernatremia (3) Debility (4) Decubital ulcer (5) Alzheimer's dementia (6) Pacemaker (7) Attention to G-tube Subjective Allergies: Coded Allergies: No Known Allergies (Unverified , 12/27/13) Objective Last 24 Hour Vital Signs Date Time Temp Pulse Resp B/P Pulse Ox O2 Delivery O2 Flow Rate FiO2 01/04/17 20:38 74 112/57 01/04/17 19:00 97.7 68 20 144/72 97 Nasal Cannula 2.0 01/04/17 16:00 97.7 74 20 112/57 99 Nasal Cannula 2.0 01/04/17 11:48 96.8 66 21 149/82 98 Nasal Cannula 2.0 01/04/17 08:59 62 121/73 01/04/17 07:58 97.3 62 21 121/73 99 Nasal Cannula 2.0 01/04/17 04:00 98.1 66 19 141/72 97 Nasal Cannula 01/04/17 00:00 97.2 64 18 141/81 100 Nasal Cannula 01/03/17 22:26 74 133/75 Intake and Output 01/03/17 01/04/17 19:00 07:00 Intake Total 75 ml 1388 ml Output Total 500 ml 1100 ml Balance -425 ml 288 ml Intake Oral 0 ml Free Water 50 ml IV Total 75 ml 825 ml Tube Feeding 513 ml Output Urine Total 500 ml 1100 ml Microbiology Date/Time Source Procedure Growth Status 01/03/17 14:33 Sacral Wound Gram Stain - Final Resulted 01/03/17 14:33 Sacral Wound Wound Culture Pending Resulted Laboratory Tests 01/04/17 00:00: Urine Color Pale yellow, Urine Appearance Clear, Urine pH 8, Urine Specific [place] 1.010, Urine Protein 2+H, Urine Glucose (UA) Negative, Urine Ketones Negative, Urine Occult Blood Negative, Urine Nitrite Negative, Urine Bilirubin Negative, Urine Urobilinogen Normal, Urine Leukocyte Esterase 2+H, Urine RBC 0-2 , Urine WBC 15-20H, Urine Squamous Epithelial Cells Few, Urine Transitional Epithelial Cells FewH, Urine Bacteria Few, Urine Eosinophils Rare, Urine Osmolality [Pending], Urine Random Sodium 130, Urine Random Chloride 93, Urine Potassium Timed 41 01/04/17 05:55: White Blood Count 7.4, Red Blood Count 3.88L, Hemoglobin 11.3#L, Hematocrit 34.5 #L, Mean Corpuscular Volume 89, Mean Corpuscular Hemoglobin 29.1, Mean Corpuscular Hemoglobin Concent 32.8, Red Cell Distribution Width 17.1H, Platelet Count 373, Mean Platelet Volume 7.3, Neutrophils (%) (Auto) 69.0, Lymphocytes (%) (Auto) 16.9L, Monocytes (%) (Auto) 8.2, Eosinophils (%) (Auto) 4.6H, Basophils (%) (Auto) 1.4, Sodium Level 151H, Potassium Level 4.6, Chloride Level 115H, Carbon Dioxide Level 24, Anion Gap 12, Blood Urea Nitrogen 46H, Creatinine 0.9, Estimat Glomerular Filtration Rate , Glucose Level 103, Calcium Level 10.1, Total Bilirubin < 0.2, Aspartate Amino Transf (AST/SGOT) 26 , Alanine Aminotransferase (ALT/SGPT) 14, Alkaline Phosphatase 75, Total Protein 5.6L, Albumin 1.7L, Globulin 3.9, Albumin/Globulin Ratio 0.4L Current Medications Medications (Trade) Dose Ordered Sig/David Route PRN Reason Start Time Stop Time Status Last Admin Dose Admin Acetaminophen (Tylenol) 160 mg TID PRN GT Mild Pain/Temp > 100.5 01/03/17 11:00 02/02/17 10:59 Ascorbic Acid (Vitamin C) 500 mg DAILY GT 01/04/17 09:00 02/03/17 08:59 01/04/17 08:59 Bisacodyl (Dulcolax) 10 mg DAILYPRN PRN RECTAL Constipation 01/03/17 11:00 02/02/17 10:59 Dextrose (D5W 1000ml) 1,000 ml @ 75 mls/hr [id number] IV 01/03/17 11:30 02/02/17 11:29 01/04/17 06:15 Dextrose (Dextrose 50%) STAT PRN IV Hypoglycemia 01/03/17 11:00 02/02/17 10:59 Heparin Sodium (Porcine) (Heparin 5000 units/ml) 5,000 units EVERY 12 HOURS SUBQ 01/03/17 12:00 02/02/17 11:59 01/04/17 20:39 Magnesium Hydroxide (Mom) 30 ml DAILYPRN PRN GT Constipation 01/03/17 11:00 02/02/17 10:59 Metoprolol Tartrate (Lopressor) 25 mg Q12HR GT 01/03/17 21:00 02/02/17 20:59 01/04/17 20:38 Tramadol HCl (Ultram) 50 mg Q8H PRN GT Moderate Pain (Pain Scale 4-6) 01/03/17 11:00 01/10/17 10:59 01/03/17 22:26 Zinc Sulfate (Zinc Sulfate) 220 mg DAILY ORAL 01/04/17 09:00 02/03/17 08:59 01/04/17 08:59 EVENS CASTELLON Jan 04, 2017 22:24
[2017-01-05] VITALS: BP 113/60
[2017-01-05] MEDS: traMADol 50mg tab GT PRN (00:33)
--- NOTE | 2017-01-05 00:50 | Wound Care Consultation ---
Wound Assessment Wound Assessment #1: Wound Present on Admission: Yes New Wound: No Status Change of Wound: No Wound Location Body Site Modif: mid Wound Location Body Site: sacral Wound Type: pressure ulcer - surgical wound Crystal Test: Does not Crystal Pressure Ulcer Stage: IV/unstageable Wound Thickness: Full Thickness Wound Length: 19.0 Wound Width: 16.5 Wound Depth: 3.0 Percent of Wound [place]/Red: 70 Percent of Wound Bed Yellow/Wh: 30 Wound Drainage Description: Serosanguineous Wound Drainage Amount: Moderate Wound Drainage Odor: None/Absent Tissue Surrounding Wound: Macerated Wound Undermining at 12:00: 4.0 Wound Undermining at 6:00: 3.0 Wound Undermining at 9:00: 4.0 Wound General Appearance: Reddened, Draining Wound Assessment #2: Wound Number: #2 Wound Present on Admission: Yes New Wound: No Status Change of Wound: No Wound Location Body Site Modif: right Wound Location Body Site: heel Wound Type: pressure ulcer Crystal Test: Does not Crystal Pressure Ulcer Stage: IV/unstageable Wound Thickness: Full Thickness Wound Length: 6.0 Wound Width: 6.0 Wound Depth: utd Percent of Wound Black/Brown: 100 Wound Drainage Description: Serosanguineous Wound Drainage Amount: None Wound Drainage Odor: None/Absent Tissue Surrounding Wound: Indurated Wound General Appearance: Blackened Wound Assessment #3: Wound Number: #3 Wound Present on Admission: Yes New Wound: No Status Change of Wound: No Wound Location Body Site Modif: left, lateral Wound Location Body Site: knee Wound Type: pressure ulcer Crystal Test: Does not Crystal Pressure Ulcer Stage: IV/unstageable Wound Thickness: Full Thickness Wound Length: 3.5 Wound Width: 2.0 Wound Depth: utd Percent of Wound [place]/Red: 40 Percent of Wound Black/Brown: 60 Wound Drainage Amount: None Wound Drainage Odor: None/Absent Tissue Surrounding Wound: Intact Wound General Appearance: Reddened Wound Assessment #4: Wound Number: #4 Wound Present on Admission: Yes New Wound: No Status Change of Wound: No Wound Location Body Site Modif: left, lower, lateral Wound Location Body Site: leg Wound Type: pressure ulcer Crystal Test: Does not Crystal Pressure Ulcer Stage: IV/unstageable Wound Thickness: Full Thickness Wound Length: 2.0 Wound Width: 1.0 Wound Depth: utd Percent of Wound [place]/Red: 60 Percent of Wound Bed Yellow/Wh: 40 Wound Drainage Description: Serosanguineous Wound Drainage Amount: Scant Wound Drainage Odor: None/Absent Tissue Surrounding Wound: Macerated Wound Assessment #5: Wound Number: #5 Wound Present on Admission: Yes New Wound: No Status Change of Wound: No Wound Location Body Site Modif: left Wound Location Body Site: metatarsal head Wound Type: pressure ulcer Crystal Test: Does not Crystal Pressure Ulcer Stage: deep tissue injury Wound Thickness: Full Thickness Wound Length: 1.0 Wound Width: 1.0 Wound Depth: utd Percent of Wound Black/Brown: 100 Wound Drainage Amount: None Wound Drainage Odor: None/Absent Tissue Surrounding Wound: Intact Wound General Appearance: Asymptomatic Wound Assessment #6: Wound Number: #6 Wound Present on Admission: Yes New Wound: No Status Change of Wound: No Wound Location Body Site Modif: left, medial Wound Location Body Site: knee Wound Type: pressure ulcer Crystal Test: Does not Crystal Pressure Ulcer Stage: deep tissue injury Wound Thickness: Full Thickness Wound Length: 1.5 Wound Width: 2.0 Wound Depth: utd Percent of Wound Purple/Maroon: 100 Wound Drainage Amount: None Wound Drainage Odor: None/Absent Tissue Surrounding Wound: Erythemic Wound General Appearance: Reddened Wound Assessment #7: Wound Number: #7 Wound Present on Admission: Yes New Wound: No Status Change of Wound: No Wound Location Body Site Modif: left, lateral Wound Location Body Site: malleolus/ankle Wound Type: pressure ulcer Crystal Test: Does not Crystal Pressure Ulcer Stage: IV/unstageable Wound Thickness: Full Thickness Wound Length: 3.0 Wound Width: 2.5 Wound Depth: utd Percent of Wound Black/Brown: 100 Wound Drainage Amount: None Wound Drainage Odor: None/Absent Tissue Surrounding Wound: Erythemic Wound General Appearance: Blackened Wound Assessment #8: Wound Number: #8 Wound Present on Admission: Yes New Wound: No Status Change of Wound: No Wound Location Body Site Modif: left, lower, lateral Wound Location Body Site: leg Wound Type: scab Crystal Test: Does not Crystal Wound Length: 0.5 Wound Width: 0.5 Wound Depth: utd Percent of Wound Black/Brown: 100 Wound Drainage Amount: None Wound Drainage Odor: None/Absent Tissue Surrounding Wound: Intact Wound General Appearance: Asymptomatic Wound Assessment #9: Wound Number: #9 Wound Present on Admission: Yes New Wound: No Status Change of Wound: No Wound Location Body Site Modif: left, mid Wound Location Body Site: foot Wound Type: pressure ulcer Crystal Test: Does not Crystal Pressure Ulcer Stage: deep tissue injury Wound Thickness: Full Thickness Wound Length: 2.0 Wound Width: 2.0 Wound Depth: utd Percent of Wound Purple/Maroon: 100 Wound Drainage Amount: None Wound Drainage Odor: None/Absent Tissue Surrounding Wound: Erythemic Wound General Appearance: Reddened Wound Assessment #10: Wound Number: #10 Wound Present on Admission: Yes New Wound: No Status Change of Wound: No Wound Location Body Site Modif: right, lateral Wound Location Body Site: malleolus/ankle Wound Type: pressure ulcer Crystal Test: Does not Crystal Pressure Ulcer Stage: deep tissue injury Wound Thickness: Full Thickness Wound Length: 1.0 Wound Width: 1.0 Wound Depth: utd Percent of Wound Purple/Maroon: 100 Wound Drainage Amount: None Wound Drainage Odor: None/Absent Tissue Surrounding Wound: Erythemic Wound General Appearance: Reddened Wound Comment #1 Sacral surgical wound stage IV/unstageable pressure ulcer #2 Right heel stage IV/unstageable pressure ulcer #3 Left 1st metatarsal head DTI pressure ulcer #4 Right lower leg IV/unstageable pressure ulcer #5 Left lateral knee stage IV/unstageable pressure ulcer #6 Left lower lateral leg dry scab #7 Left medial knee DTI pressure ulcer #8 Left lateral Malleolus stage IV/unstageable pressure ulcer #9 Left mid foot DTI pressure ulcer #10 Right malleolus DTI pressure ulcer Recommendation -Sacral surgical wound Cleanse with saline, pat dry, apply wet to dry dressing with Dakin's solution daily and PRN soiled/dislodged -Right heel Cleanse with saline, pat dry, paint with Betadine, cover with 4x4, wrap with Kerlix daily and PRN soiled/dislodged -Right lateral lower leg Cleanse with saline, pat dry, apply hydrogel to wound bed, cover with bordered gauze daily and PRN soiled/dislodged -Local wound care per protocol for DTI -Turn and reposition -Keep clean and dry -Low air loss mattress -Offload both heels -Optimize nutrition -Assess and f/u accordingly for any changes MARY WARREN RN Jan 05, 2017 00:50
[2017-01-05] MEDS ORDERED: Dakin's 0.25% (Half Strength) 16oz TOPIC PRN (01:45)
[2017-01-05 04:00] VITALS: BP 100/53
[2017-01-05 07:22] LABS: BASOPHILS % (AUTO) 1.7 % (0.0-2.0); EOSINOPHILS % (AUTO) 2.8 % (0.0-3.0); LYMPHOCYTES % (AUTO) 12.2 % (20.0-45.0); MEAN CORPUSCULAR HEMOGLOBIN 28.3 PG (27.0-31.0); MEAN CORPUSCULAR VOLUME 89 FL (80-99); MEAN PLATELET VOLUME 7.5 FL (6.5-10.1); MONOCYTES % (AUTO) 12.2 % (1.0-10.0); NEUTROPHILS % (AUTO) 71.2 % (45.0-75.0); PLATELET COUNT 356 K/UL (150-450); RED BLOOD COUNT 3.54 M/UL (4.20-5.40); RED CELL DISTRIBUTION WIDTH 17.2 % (11.6-14.8); WHITE BLOOD COUNT 9.1 K/UL (4.8-10.8)
[2017-01-05 07:46] LABS: ANION GAP 11 (5-15); CALCIUM 9.8 mg/dL (8.6-10.2); CARBON DIOXIDE 26 mEQ/L (20-30); CHLORIDE 109 mEQ/L (98-107); CREATININE 0.8 mg/dL (0.5-0.9); HEMOLYSIS 2; POTASSIUM 4.9 mEQ/L (3.4-4.9); SODIUM 146 mEQ/L (135-145)
[2017-01-05 08:06] VITALS: BP 104/53
[2017-01-05] MEDS: Ascorbic Acid 500mg tab GT SCH (08:27)
[2017-01-05] MEDS: Metoprolol 25mg tab GT SCH ×2 (08:27→21:46)
[2017-01-05] MEDS: Promethazine/Codeine 5ml UD ORAL PRN ×2 (08:27→19:24)
[2017-01-05] MEDS: Zinc Sulfate 220mg cap ORAL SCH (08:27)
[2017-01-05] MEDS: Heparin 5000 units/ml inj SUBQ SCH ×2 (08:28→21:47)
[2017-01-05 11:53] VITALS: BP 102/55
[2017-01-05] MEDS: Dakin's 0.25% (Half Strength) 16oz TOPIC SCH (12:31)
--- NOTE | 2017-01-05 14:38 | Diagnostic Imaging Report ---
Indication: Cough Comparison: 01/03/17 A single view chest radiograph was obtained. Findings: Parenchymal opacities present at the lung bases again noted. Pneumonia not excluded. Please correlate clinically. Mild cardiomegaly is again noted unchanged. PICC line and pacemaker are noted. Impression: Possible basilar infiltrates. No change
[2017-01-05 16:00] VITALS: BP 100/54
--- NOTE | 2017-01-05 18:18 | Internal Med Progress Note ---
Subjective Date of Service: Jan 05, 2017 Physician Name Bradley Holland Attending Physician Titi Cruz MD Current Medications Medications (Trade) Dose Ordered Sig/David Route PRN Reason Start Time Stop Time Status Last Admin Dose Admin Acetaminophen (Tylenol) 160 mg TID PRN GT Mild Pain/Temp > 100.5 01/03/17 11:00 02/02/17 10:59 Ascorbic Acid (Vitamin C) 500 mg DAILY GT 01/04/17 09:00 02/03/17 08:59 01/05/17 08:27 Bisacodyl (Dulcolax) 10 mg DAILYPRN PRN RECTAL Constipation 01/03/17 11:00 02/02/17 10:59 Dextrose (D5W 1000ml) 1,000 ml @ 75 mls/hr [id number] IV 01/03/17 11:30 02/02/17 11:29 01/05/17 14:32 Dextrose (Dextrose 50%) STAT PRN IV Hypoglycemia 01/03/17 11:00 02/02/17 10:59 Heparin Sodium (Porcine) (Heparin 5000 units/ml) 5,000 units EVERY 12 HOURS SUBQ 01/03/17 12:00 02/02/17 11:59 01/05/17 08:28 Magnesium Hydroxide (Mom) 30 ml DAILYPRN PRN GT Constipation 01/03/17 11:00 02/02/17 10:59 Metoprolol Tartrate (Lopressor) 25 mg Q12HR GT 01/03/17 21:00 02/02/17 20:59 01/04/17 20:38 Promethazine HCl/ Codeine (Phenergan with Codeine) 5 ml Q6HR PRN ORAL For Cough 01/05/17 07:00 02/04/17 06:59 01/05/17 08:27 Sodium Hypochlorite (Dakin's Half Strength) 1 applic DAILY TOPIC 01/05/17 09:00 02/04/17 08:59 01/05/17 12:31 Sodium Hypochlorite (Dakin's Half Strength) 1 applic PRN PRN TOPIC soiled/dislodged 01/05/17 01:45 02/04/17 01:44 Tramadol HCl (Ultram) 50 mg Q8H PRN GT Moderate Pain (Pain Scale 4-6) 01/03/17 11:00 01/10/17 10:59 01/05/17 00:33 Zinc Sulfate (Zinc Sulfate) 220 mg DAILY ORAL 01/04/17 09:00 02/03/17 08:59 01/05/17 08:27 Allergies: Coded Allergies: No Known Allergies (Unverified , 12/27/13) ROS Limited/Unobtainable: Yes Subjective 86 YO F admitted with anemia and hypernatremia. Cover for Int Med-Dr Cruz. Objective Last Vital Signs Date Time Temp Pulse Resp B/P Pulse Ox O2 Delivery O2 Flow Rate FiO2 01/05/17 16:00 97.7 65 20 100/54 99 Nasal Cannula 3.0 01/04/17 20:00 28 Laboratory Tests Test 01/05/17 05:30 White Blood Count 9.1 K/UL (4.8-10.8) Red Blood Count 3.54 M/UL (4.20-5.40) L Hemoglobin 10.0 G/DL (12.0-16.0) L Hematocrit 31.3 % (37.0-47.0) L Mean Corpuscular Volume 89 FL (80-99) Mean Corpuscular Hemoglobin 28.3 PG (27.0-31.0) Mean Corpuscular Hemoglobin Concent 32.0 G/DL (32.0-36.0) Red Cell Distribution Width 17.2 % (11.6-14.8) H Platelet Count 356 K/UL (150-450) Mean Platelet Volume 7.5 FL (6.5-10.1) Neutrophils (%) (Auto) 71.2 % (45.0-75.0) Lymphocytes (%) (Auto) 12.2 % (20.0-45.0) L Monocytes (%) (Auto) 12.2 % (1.0-10.0) H Eosinophils (%) (Auto) 2.8 % (0.0-3.0) Basophils (%) (Auto) 1.7 % (0.0-2.0) Sodium Level 146 mEQ/L (135-145) H Potassium Level 4.9 mEQ/L (3.4-4.9) Chloride Level 109 mEQ/L (98-107) H Carbon Dioxide Level 26 mEQ/L (20-30) Anion Gap 11 (5-15) Blood Urea Nitrogen 47 mg/dL (7-23) H Creatinine 0.8 mg/dL (0.5-0.9) Estimat Glomerular Filtration Rate mL/min (>60) Glucose Level 100 mg/dL (74-106) Calcium Level 9.8 mg/dL (8.6-10.2) Microbiology Date/Time Source Procedure Growth Status 01/03/17 07:45 Nasal Nares MRSA Culture - Final NO METHICILLIN RESISTANT STAPH AUREUS... Complete 01/04/17 00:00 Urine,Clean Catch Urine Culture - Preliminary NO GROWTH Resulted 01/03/17 14:33 Sacral Wound Gram Stain - Final Resulted 01/03/17 14:33 Wound Culture - Preliminary Gram Negative Bacillus 1 Resulted 01/03/17 07:45 Rectum VRE Culture - Final Enterococcus Faecium - Vre Complete Intake and Output 01/04/17 01/05/17 19:00 07:00 Intake Total 1359 ml 1011 ml Output Total 200 ml 600 ml Balance 1159 ml 411 ml Intake Oral 0 ml Free Water 60 ml 30 ml IV Total 900 ml 525 ml Tube Feeding 399 ml 456 ml Output Urine Total 200 ml 600 ml Objective General Appearance: moderate distress, cachetic, lethargic, thin EENT: PERRL/EOMI, normal ENT inspection Neck: non-tender, normal alignment, supple, normal inspection Cardiovascular: normal peripheral pulses, normal rate, regular rhythm, no gallop/murmur, no JVD Respiratory/Chest: decreased breath sounds, crackles/rales, rhonchi - bilaterally, expiratory wheezing Abdomen: non tender, soft, no organomegaly, no mass, decreased bowel sounds Skin: normal pigmentation, warm/dry Assessment/Plan Problem List: (1) Pneumonia (2) Hypertension Assessment & Plan: Cont lopressor (3) Diabetes mellitus (4) Peripheral vascular disease (5) Coronary artery disease (6) Atrial fibrillation (7) DVT (deep venous thrombosis) (8) Renal failure (9) Anemia Assessment & Plan: S/P transfusion 2 units PRBC on 01/03/17 (10) Alzheimer's dementia (11) Hypernatremia (12) Pacemaker Status: unchanged Assessment/Plan Discharge planning: halfway facBRADLEY MCDUFFIE Jan 05, 2017 18:18
[2017-01-05 19:00] VITALS: BP 111/67
--- NOTE | 2017-01-05 23:09 | Pulmonology Progress Note ---
Assessment/Plan Problems: (1) Anemia (2) Hypernatremia (3) Debility (4) Decubital ulcer (5) Alzheimer's dementia (6) Pacemaker (7) Attention to G-tube Subjective Allergies: Coded Allergies: No Known Allergies (Unverified , 12/27/13) Objective Last 24 Hour Vital Signs Date Time Temp Pulse Resp B/P Pulse Ox O2 Delivery O2 Flow Rate FiO2 01/05/17 21:46 61 111/67 01/05/17 21:22 97 Nasal Cannula 2.0 28 01/05/17 21:22 Nasal Cannula 2.0 28 01/05/17 19:00 97.9 61 20 111/67 97 Nasal Cannula 3.0 01/05/17 16:00 97.7 65 20 100/54 99 Nasal Cannula 3.0 01/05/17 11:53 98.1 65 15 102/55 99 Nasal Cannula 01/05/17 08:27 63 104/53 01/05/17 08:06 98.1 63 15 104/53 100 Nasal Cannula 01/05/17 04:00 98.2 61 20 100/53 98 Nasal Cannula 3.0 01/05/17 01:32 97.9 01/05/17 00:00 97.9 64 20 113/60 99 Nasal Cannula 3.0 Intake and Output 01/04/17 01/05/17 19:00 07:00 Intake Total 1359 ml 1011 ml Output Total 200 ml 600 ml Balance 1159 ml 411 ml Intake Oral 0 ml Free Water 60 ml 30 ml IV Total 900 ml 525 ml Tube Feeding 399 ml 456 ml Output Urine Total 200 ml 600 ml Microbiology Date/Time Source Procedure Growth Status 01/03/17 07:45 Nasal Nares MRSA Culture - Final NO METHICILLIN RESISTANT STAPH AUREUS... Complete 01/04/17 00:00 Urine,Clean Catch Urine Culture - Preliminary NO GROWTH Resulted 01/03/17 14:33 Sacral Wound Gram Stain - Final Resulted 01/03/17 14:33 Wound Culture - Preliminary Gram Negative Bacillus 1 Resulted 01/03/17 07:45 Rectum VRE Culture - Final Enterococcus Faecium - Vre Complete Laboratory Tests 01/05/17 05:30: White Blood Count 9.1, Red Blood Count 3.54L, Hemoglobin 10.0L, Hematocrit 31.3L , Mean Corpuscular Volume 89, Mean Corpuscular Hemoglobin 28.3, Mean Corpuscular Hemoglobin Concent 32.0, Red Cell Distribution Width 17.2H, Platelet Count 356, Mean Platelet Volume 7.5, Neutrophils (%) (Auto) 71.2, Lymphocytes (%) (Auto) 12.2L, Monocytes (%) (Auto) 12.2H, Eosinophils (%) (Auto ) 2.8, Basophils (%) (Auto) 1.7, Sodium Level 146H, Potassium Level 4.9, Chloride Level 109H, Carbon Dioxide Level 26, Anion Gap 11, Blood Urea Nitrogen 47H, Creatinine 0.8, Estimat Glomerular Filtration Rate , Glucose Level 100, Calcium Level 9.8 Current Medications Medications (Trade) Dose Ordered Sig/David Route PRN Reason Start Time Stop Time Status Last Admin Dose Admin Acetaminophen (Tylenol) 160 mg TID PRN GT Mild Pain/Temp > 100.5 01/03/17 11:00 02/02/17 10:59 Ascorbic Acid (Vitamin C) 500 mg DAILY GT 01/04/17 09:00 02/03/17 08:59 01/05/17 08:27 Bisacodyl (Dulcolax) 10 mg DAILYPRN PRN RECTAL Constipation 01/03/17 11:00 02/02/17 10:59 Dextrose (D5W 1000ml) 1,000 ml @ 75 mls/hr [id number] IV 01/03/17 11:30 02/02/17 11:29 01/05/17 14:32 Dextrose (Dextrose 50%) STAT PRN IV Hypoglycemia 01/03/17 11:00 02/02/17 10:59 Heparin Sodium (Porcine) (Heparin 5000 units/ml) 5,000 units EVERY 12 HOURS SUBQ 01/03/17 12:00 02/02/17 11:59 01/05/17 21:47 Magnesium Hydroxide (Mom) 30 ml DAILYPRN PRN GT Constipation 01/03/17 11:00 02/02/17 10:59 Metoprolol Tartrate (Lopressor) 25 mg Q12HR GT 01/03/17 21:00 02/02/17 20:59 01/05/17 21:46 Promethazine HCl/ Codeine (Phenergan with Codeine) 5 ml Q6HR PRN ORAL For Cough 01/05/17 07:00 02/04/17 06:59 01/05/17 19:24 Sodium Hypochlorite (Dakin's Half Strength) 1 applic DAILY TOPIC 01/05/17 09:00 02/04/17 08:59 01/05/17 12:31 Sodium Hypochlorite (Dakin's Half Strength) 1 applic PRN PRN TOPIC soiled/dislodged 01/05/17 01:45 02/04/17 01:44 Tramadol HCl (Ultram) 50 mg Q8H PRN GT Moderate Pain (Pain Scale 4-6) 01/03/17 11:00 01/10/17 10:59 01/05/17 00:33 Zinc Sulfate (Zinc Sulfate) 220 mg DAILY ORAL 01/04/17 09:00 02/03/17 08:59 01/05/17 08:27 EVENS CASTELLON Jan 05, 2017 23:09
[2017-01-06] VITALS: BP 106/45
[2017-01-06 04:00] VITALS: BP 145/63
[2017-01-06 07:35] LABS: BASOPHILS % (AUTO) 1.3 % (0.0-2.0); EOSINOPHILS % (AUTO) 2.3 % (0.0-3.0); LYMPHOCYTES % (AUTO) 16.4 % (20.0-45.0); MEAN CORPUSCULAR HEMOGLOBIN 28.6 PG (27.0-31.0); MEAN CORPUSCULAR HGB CONC 32.1 G/DL (32.0-36.0); MEAN CORPUSCULAR VOLUME 89 FL (80-99); MEAN PLATELET VOLUME 7.2 FL (6.5-10.1); MONOCYTES % (AUTO) 7.6 % (1.0-10.0); NEUTROPHILS % (AUTO) 72.5 % (45.0-75.0); PLATELET COUNT 332 K/UL (150-450); RED BLOOD COUNT 3.39 M/UL (4.20-5.40); RED CELL DISTRIBUTION WIDTH 17.3 % (11.6-14.8); WHITE BLOOD COUNT 12.8 K/UL (4.8-10.8)
[2017-01-06 07:51] LABS: ANION GAP 12 (5-15); CALCIUM 9.5 mg/dL (8.6-10.2); CARBON DIOXIDE 24 mEQ/L (20-30); CHLORIDE 104 mEQ/L (98-107); CREATININE 0.9 mg/dL (0.5-0.9); HEMOLYSIS 6; POTASSIUM 5.2 mEQ/L (3.4-4.9); SODIUM 140 mEQ/L (135-145)
[2017-01-06 07:59] VITALS: BP 89/59
[2017-01-06] MEDS: Zinc Sulfate 220mg cap ORAL SCH (08:32)
[2017-01-06] MEDS: Ascorbic Acid 500mg tab GT SCH (08:32)
[2017-01-06] MEDS: traMADol 50mg tab GT PRN (08:32)
[2017-01-06] MEDS: Heparin 5000 units/ml inj SUBQ SCH ×2 (08:33→20:57)
[2017-01-06] MEDS: Metoprolol 25mg tab GT SCH ×2 (08:34→21:00)
[2017-01-06] MEDS: Dakin's 0.25% (Half Strength) 16oz TOPIC SCH (11:23)
[2017-01-06 11:42] VITALS: BP 99/57
[2017-01-06 16:00] VITALS: BP 87/50
[2017-01-06] MEDS ORDERED: NS 275ml ONE (17:33)
[2017-01-06] MEDS ORDERED: Sterile Water Irrig 1000ml IRRIG ONE (17:33)
[2017-01-06] MEDS ORDERED: Tubing Blood Filter IV ONE (17:33)
--- NOTE | 2017-01-06 17:53 | Internal Med Progress Note ---
Subjective Date of Service: Jan 06, 2017 Physician Name Ricky Davis Attending Physician Titi Cruz MD Current Medications Medications (Trade) Dose Ordered Sig/David Route PRN Reason Start Time Stop Time Status Last Admin Dose Admin Acetaminophen (Tylenol) 160 mg TID PRN GT Mild Pain/Temp > 100.5 01/03/17 11:00 02/02/17 10:59 Ascorbic Acid (Vitamin C) 500 mg DAILY GT 01/04/17 09:00 02/03/17 08:59 01/06/17 08:32 Bisacodyl (Dulcolax) 10 mg DAILYPRN PRN RECTAL Constipation 01/03/17 11:00 02/02/17 10:59 Dextrose (D5W 1000ml) 1,000 ml @ 75 mls/hr [id number] IV 01/03/17 11:30 02/02/17 11:29 01/06/17 16:35 Dextrose (Dextrose 50%) STAT PRN IV Hypoglycemia 01/03/17 11:00 02/02/17 10:59 Heparin Sodium (Porcine) (Heparin 5000 units/ml) 5,000 units EVERY 12 HOURS SUBQ 01/03/17 12:00 02/02/17 11:59 01/06/17 08:33 Magnesium Hydroxide (Mom) 30 ml DAILYPRN PRN GT Constipation 01/03/17 11:00 02/02/17 10:59 Metoprolol Tartrate (Lopressor) 25 mg Q12HR GT 01/03/17 21:00 02/02/17 20:59 01/05/17 21:46 Promethazine HCl/ Codeine (Phenergan with Codeine) 5 ml Q6HR PRN ORAL For Cough 01/05/17 07:00 02/04/17 06:59 01/05/17 19:24 Sodium Hypochlorite (Dakin's Half Strength) 1 applic DAILY TOPIC 01/05/17 09:00 02/04/17 08:59 01/06/17 11:23 Sodium Hypochlorite (Dakin's Half Strength) 1 applic PRN PRN TOPIC soiled/dislodged 01/05/17 01:45 02/04/17 01:44 Tramadol HCl (Ultram) 50 mg Q8H PRN GT Moderate Pain (Pain Scale 4-6) 01/03/17 11:00 01/10/17 10:59 01/06/17 08:32 Zinc Sulfate (Zinc Sulfate) 220 mg DAILY ORAL 01/04/17 09:00 02/03/17 08:59 01/06/17 08:32 Allergies: Coded Allergies: No Known Allergies (Unverified , 12/27/13) ROS Limited/Unobtainable: Yes Subjective 86 YO F admitted with anemia and hypernatremia. Hypotension today with increasing leukocytosis. Await ID consult. Cover for Int Med-Dr Cruz. Objective Last Vital Signs Date Time Temp Pulse Resp B/P Pulse Ox O2 Delivery O2 Flow Rate FiO2 01/06/17 16:00 97.7 64 14 87/50 100 Room Air 01/06/17 06:47 2.0 01/05/17 21:22 28 Laboratory Tests Test 01/06/17 06:00 01/06/17 15:00 White Blood Count 12.8 K/UL (4.8-10.8) H Red Blood Count 3.39 M/UL (4.20-5.40) L Hemoglobin 9.7 G/DL (12.0-16.0) L Hematocrit 30.2 % (37.0-47.0) L Mean Corpuscular Volume 89 FL (80-99) Mean Corpuscular Hemoglobin 28.6 PG (27.0-31.0) Mean Corpuscular Hemoglobin Concent 32.1 G/DL (32.0-36.0) Red Cell Distribution Width 17.3 % (11.6-14.8) H Platelet Count 332 K/UL (150-450) Mean Platelet Volume 7.2 FL (6.5-10.1) Neutrophils (%) (Auto) 72.5 % (45.0-75.0) Lymphocytes (%) (Auto) 16.4 % (20.0-45.0) L Monocytes (%) (Auto) 7.6 % (1.0-10.0) Eosinophils (%) (Auto) 2.3 % (0.0-3.0) Basophils (%) (Auto) 1.3 % (0.0-2.0) Sodium Level 140 mEQ/L (135-145) Potassium Level 5.2 mEQ/L (3.4-4.9) H Chloride Level 104 mEQ/L (98-107) Carbon Dioxide Level 24 mEQ/L (20-30) Anion Gap 12 (5-15) Blood Urea Nitrogen 52 mg/dL (7-23) H Creatinine 0.9 mg/dL (0.5-0.9) Estimat Glomerular Filtration Rate mL/min (>60) Glucose Level 96 mg/dL (74-106) Calcium Level 9.5 mg/dL (8.6-10.2) Stool Occult Blood Pending Microbiology Date/Time Source Procedure Growth Status 01/04/17 00:00 Urine,Clean Catch Urine Culture - Final Latricia Albicans Complete Intake and Output 01/05/17 01/06/17 19:00 07:00 Intake Total 825 ml 1305 ml Output Total 100 ml 400 ml Balance 725 ml 905 ml IV Total 825 ml 900 ml Tube Feeding 405 ml Output Urine Total 100 ml 400 ml Objective General Appearance: moderate distress, cachetic, lethargic, thin EENT: PERRL/EOMI, normal ENT inspection Neck: non-tender, normal alignment, supple, normal inspection Cardiovascular: normal peripheral pulses, normal rate, regular rhythm, no gallop/murmur, no JVD Respiratory/Chest: decreased breath sounds, crackles/rales, rhonchi - bilaterally, expiratory wheezing Abdomen: non tender, soft, no organomegaly, no mass, decreased bowel sounds Skin: normal pigmentation, warm/dry Assessment/Plan Problem List: (1) Pneumonia Assessment & Plan: CXR=bibasilar infiltrates. Start empiric zosyn and flagyl for possible aspiration pneumonia. Await ID consult-Dr Hicks. (2) Hypertension Assessment & Plan: Cont lopressor (3) Diabetes mellitus (4) Peripheral vascular disease (5) Coronary artery disease (6) Atrial fibrillation (7) DVT (deep venous thrombosis) (8) Renal failure (9) Anemia Assessment & Plan: S/P transfusion 2 units PRBC on 01/03/17 (10) Alzheimer's dementia (11) Hypernatremia (12) Pacemaker (13) Hypotension Assessment & Plan: ?sepsis? NS bolus. Start zosyn and Flagyl for possible asp pneumonia Status: deteriorating RICKY DAVIS Jan 06, 2017 17:53
[2017-01-06] MEDS ORDERED: NS 250 ML IVPB ONE (18:00)
[2017-01-06] MEDS ORDERED: metroNIDAZOLE 500mg 100 ML IVPB SCH (19:00)
[2017-01-06 20:00] VITALS: BP 93/49
[2017-01-06] MEDS: Piperacillin/Tazobactam 3.375 GM in D5W 110 ML IVPB SCH (20:56)
--- NOTE | 2017-01-06 22:49 | Pulmonology Progress Note ---
Assessment/Plan Problems: (1) Anemia (2) Hypernatremia (3) Debility (4) Decubital ulcer (5) Alzheimer's dementia (6) Pacemaker (7) Attention to G-tube Subjective Allergies: Coded Allergies: No Known Allergies (Unverified , 12/27/13) Objective Last 24 Hour Vital Signs Date Time Temp Pulse Resp B/P Pulse Ox O2 Delivery O2 Flow Rate FiO2 01/06/17 20:54 94 Nasal Cannula 2.0 01/06/17 20:54 Nasal Cannula 2.0 01/06/17 20:00 97.7 67 20 93/49 95 Nasal Cannula 2.0 01/06/17 16:00 97.7 64 14 87/50 100 Room Air 01/06/17 11:42 97.0 66 15 99/57 100 Nasal Cannula 01/06/17 08:34 68 89/59 01/06/17 07:59 98.2 68 15 89/59 87 Nasal Cannula 01/06/17 06:47 96 Nasal Cannula 2.0 01/06/17 06:46 Nasal Cannula 2.0 01/06/17 04:00 99.5 71 20 145/63 98 Nasal Cannula 2.0 01/06/17 00:00 98.2 63 20 106/45 94 Nasal Cannula 2.0 Intake and Output 01/05/17 01/06/17 19:00 07:00 Intake Total 825 ml 1305 ml Output Total 100 ml 400 ml Balance 725 ml 905 ml IV Total 825 ml 900 ml Tube Feeding 405 ml Output Urine Total 100 ml 400 ml Microbiology Date/Time Source Procedure Growth Status 01/04/17 00:00 Urine,Clean Catch Urine Culture - Final Latricia Albicans Complete Laboratory Tests 01/06/17 06:00: White Blood Count 12.8H, Red Blood Count 3.39L, Hemoglobin 9.7L, Hematocrit 30.2L, Mean Corpuscular Volume 89, Mean Corpuscular Hemoglobin 28.6, Mean Corpuscular Hemoglobin Concent 32.1, Red Cell Distribution Width 17.3H, Platelet Count 332, Mean Platelet Volume 7.2, Neutrophils (%) (Auto) 72.5, Lymphocytes (%) (Auto) 16.4L, Monocytes (%) (Auto) 7.6, Eosinophils (%) (Auto) 2.3, Basophils (%) (Auto) 1.3, Sodium Level 140, Potassium Level 5.2H, Chloride Level 104, Carbon Dioxide Level 24, Anion Gap 12, Blood Urea Nitrogen 52H, Creatinine 0.9, Estimat Glomerular Filtration Rate , Glucose Level 96, Calcium Level 9.5 01/06/17 15:00: Stool Occult Blood [Pending] Current Medications Medications (Trade) Dose Ordered Sig/David Route PRN Reason Start Time Stop Time Status Last Admin Dose Admin Acetaminophen (Tylenol) 160 mg TID PRN GT Mild Pain/Temp > 100.5 01/03/17 11:00 02/02/17 10:59 Ascorbic Acid (Vitamin C) 500 mg DAILY GT 01/04/17 09:00 02/03/17 08:59 01/06/17 08:32 Bisacodyl (Dulcolax) 10 mg DAILYPRN PRN RECTAL Constipation 01/03/17 11:00 02/02/17 10:59 Dextrose (D5W 1000ml) 1,000 ml @ 75 mls/hr [id number] IV 01/03/17 11:30 02/02/17 11:29 01/06/17 16:35 Dextrose (Dextrose 50%) STAT PRN IV Hypoglycemia 01/03/17 11:00 02/02/17 10:59 Heparin Sodium (Porcine) (Heparin 5000 units/ml) 5,000 units EVERY 12 HOURS SUBQ 01/03/17 12:00 02/02/17 11:59 01/06/17 20:57 Magnesium Hydroxide (Mom) 30 ml DAILYPRN PRN GT Constipation 01/03/17 11:00 02/02/17 10:59 Metoprolol Tartrate (Lopressor) 25 mg Q12HR GT 01/03/17 21:00 02/02/17 20:59 01/05/17 21:46 Metronidazole (Flagyl) 100 ml @ 100 mls/hr Q8HR@0200,1000,1800 IVPB 01/07/17 02:00 01/14/17 01:59 Piperacillin Sod/ Tazobactam Sod 3.375 gm/Dextrose 110 ml @ 27.5 mls/hr Q8HR@0400,1200,2000 IVPB 01/06/17 20:00 01/13/17 19:59 01/06/17 20:56 Promethazine HCl/ Codeine 5 ml 5 ml Q6HR PRN ORAL For Cough 01/05/17 07:00 02/04/17 06:59 01/05/17 19:24 Sodium Hypochlorite (Dakin's Half Strength) 1 applic DAILY TOPIC 01/05/17 09:00 02/04/17 08:59 01/06/17 11:23 Sodium Hypochlorite (Dakin's Half Strength) 1 applic PRN PRN TOPIC soiled/dislodged 01/05/17 01:45 02/04/17 01:44 Tramadol HCl (Ultram) 50 mg Q8H PRN GT Moderate Pain (Pain Scale 4-6) 01/03/17 11:00 01/10/17 10:59 01/06/17 08:32 Zinc Sulfate (Zinc Sulfate) 220 mg DAILY ORAL 01/04/17 09:00 02/03/17 08:59 01/06/17 08:32 EVENS CASTELLON Jan 06, 2017 22:49
--- NOTE | 2017-01-06 23:08 | Consultation ---
DATE OF CONSULTATION: 01/06/2017 CHIEF COMPLAINT: Anemia. HISTORY OF PRESENT ILLNESS: Most of the history is per chart. This is an 86-year-old female, known to me from last admission. We had put a G-tube fo her. She was admitted to this SNF. She was doing well, but she was found to have a low hemoglobin of 7.5 and the patient was admitted to the hospital. PAST MEDICAL HISTORY: 1. History of dysphagia, requiring G-tube placement in last admission. 2. Hypertension. 3. Diabetes. 4. Cerebrovascular vascular disease. 5. Coronary artery disease. 6. Paroxysmal atrial fibrillation. 7. 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 8. DVT. 9. Anemia. 10. Arthritis. 11. Osteomyelitis. ALLERGIES: No known drug allergies. MEDICATIONS: Please see medication reconciliation list. SOCIAL HISTORY: There is no history of tobacco, alcohol, or illicit drug abuse. PAST SURGICAL HISTORY: History of pacemaker placement. REVIEW OF SYSTEMS: Limited. FAMILY HISTORY: Noncontributory. PHYSICAL EXAMINATION: GENERAL: This is a mildly cachectic-looking female. VITAL SIGNS: Temperature 97.6 degrees, pulse 63, respirations 16, and blood pressure is 99/57. HEENT: Normocephalic and atraumatic. Sclerae anicteric. NECK: Supple. No lymphadenopathy. CARDIOVASCULAR: Regular rhythm. Plus S1 and S2. LUNGS: Decreased breath sounds bilaterally. ABDOMEN: Soft and nontender. G-tube in place. No rebound. No guarding. No peritoneal sign. EXTREMITIES: No cyanosis. No clubbing. LABORATORY DATA: White count 12.8, hemoglobin 9.7, hematocrit 30, and platelets 332,000. ASSESSMENT AND PLAN: This is an 86-year-old female with profound anemia, most probably secondary to blood loss from sacral decubital ulceration, stage IV. No active gastrointestinal bleeding at this time. The patient is currently on G-tube feeding. The patient also has a rectal tube to bypass the area of a decubital ulceration. We will recommend monitor her labs. Check the stool for OB. Consider adding PPI if needed. Ruben Miles M.D. DR: RAKAN JOB#: [id number] CC:
[2017-01-07] VITALS: BP 100/60
[2017-01-07] MEDS: metroNIDAZOLE 500mg 100 ML IVPB SCH ×3 (01:46→17:14)
[2017-01-07 04:00] VITALS: BP 112/69
[2017-01-07] MEDS: Piperacillin/Tazobactam 3.375 GM in D5W 110 ML IVPB SCH ×3 (04:22→22:07)
[2017-01-07 07:08] LABS: BASOPHILS % (AUTO) 0.8 % (0.0-2.0); EOSINOPHILS % (AUTO) 1.4 % (0.0-3.0); MEAN CORPUSCULAR HEMOGLOBIN 29.1 PG (27.0-31.0); MEAN CORPUSCULAR HGB CONC 32.8 G/DL (32.0-36.0); MEAN CORPUSCULAR VOLUME 89 FL (80-99); MEAN PLATELET VOLUME 7.5 FL (6.5-10.1); MONOCYTES % (AUTO) 6.7 % (1.0-10.0); NEUTROPHILS % (AUTO) 77.1 % (45.0-75.0); PLATELET COUNT 307 K/UL (150-450); RED BLOOD COUNT 3.19 M/UL (4.20-5.40); RED CELL DISTRIBUTION WIDTH 16.5 % (11.6-14.8); WHITE BLOOD COUNT 13.7 K/UL (4.8-10.8)
[2017-01-07 07:59] VITALS: BP 106/51
[2017-01-07] MEDS: Metoprolol 25mg tab GT SCH ×2 (08:39→21:00)
[2017-01-07] MEDS: Ascorbic Acid 500mg tab GT SCH (08:39)
[2017-01-07] MEDS: traMADol 50mg tab GT PRN (08:39)
[2017-01-07] MEDS: Heparin 5000 units/ml inj SUBQ SCH ×2 (08:49→22:10)
[2017-01-07] MEDS: Dakin's 0.25% (Half Strength) 16oz TOPIC SCH (09:00)
--- NOTE | 2017-01-07 10:11 | Consultation ---
Consult Note Consult Note ID CONSULT: Dict# [id number] Assessment/Plan ASSESSMENT: 86 y/o female with: // Probable HCAP - SCx pending - CXR 01/05: Parenchymal opacities present at the lung bases // Acute sacral osteomyelitis - recommended to completed 6 weeks ABX ( invanz - was not continued upon admission, missed 3d ). 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 Will follow STUART COBURN Jan 07, 2017 10:11
[2017-01-07 11:22] VITALS: BP 95/57
[2017-01-07] MEDS: Zinc Sulfate 220mg cap ORAL SCH (12:34)
[2017-01-07] MEDS ORDERED: Tubing IV Secondary IV ONE (13:40)
[2017-01-07] MEDS ORDERED: NS 275ml ONE (13:40)
[2017-01-07] MEDS ORDERED: NS Irrig 1000ml ONE (14:02)
--- NOTE | 2017-01-07 14:42 | Internal Med Progress Note ---
Subjective Date of Service: Jan 07, 2017 Physician Name HollandBradley Attending Physician Titi Cruz MD Current Medications Medications (Trade) Dose Ordered Sig/David Route PRN Reason Start Time Stop Time Status Last Admin Dose Admin Acetaminophen (Tylenol) 160 mg TID PRN GT Mild Pain/Temp > 100.5 01/03/17 11:00 02/02/17 10:59 Ascorbic Acid (Vitamin C) 500 mg DAILY GT 01/04/17 09:00 02/03/17 08:59 01/07/17 08:39 Bisacodyl (Dulcolax) 10 mg DAILYPRN PRN RECTAL Constipation 01/03/17 11:00 02/02/17 10:59 Dextrose (D5W 1000ml) 1,000 ml @ 75 mls/hr [id number] IV 01/03/17 11:30 02/02/17 11:29 01/07/17 08:39 Dextrose (Dextrose 50%) STAT PRN IV Hypoglycemia 01/03/17 11:00 02/02/17 10:59 Heparin Sodium (Porcine) (Heparin 5000 units/ml) 5,000 units EVERY 12 HOURS SUBQ 01/03/17 12:00 02/02/17 11:59 01/07/17 08:49 Magnesium Hydroxide (Mom) 30 ml DAILYPRN PRN GT Constipation 01/03/17 11:00 02/02/17 10:59 Metoprolol Tartrate (Lopressor) 25 mg Q12HR GT 01/03/17 21:00 02/02/17 20:59 01/07/17 08:39 Metronidazole (Flagyl) 100 ml @ 100 mls/hr Q8HR@0200,1000,1800 IVPB 01/07/17 02:00 01/14/17 01:59 01/07/17 10:00 Piperacillin Sod/ Tazobactam Sod 3.375 gm/Dextrose 110 ml @ 27.5 mls/hr Q8HR@0400,1200,2000 IVPB 01/06/17 20:00 01/13/17 19:59 01/07/17 12:34 Promethazine HCl/ Codeine 5 ml 5 ml Q6HR PRN ORAL For Cough 01/05/17 07:00 02/04/17 06:59 01/05/17 19:24 Sodium Hypochlorite (Dakin's Half Strength) 1 applic DAILY TOPIC 01/05/17 09:00 02/04/17 08:59 01/07/17 09:00 Sodium Hypochlorite (Dakin's Half Strength) 1 applic PRN PRN TOPIC soiled/dislodged 01/05/17 01:45 02/04/17 01:44 Tramadol HCl (Ultram) 50 mg Q8H PRN GT Moderate Pain (Pain Scale 4-6) 01/03/17 11:00 01/10/17 10:59 01/07/17 08:39 Zinc Sulfate (Zinc Sulfate) 220 mg DAILY ORAL 01/04/17 09:00 02/03/17 08:59 01/07/17 12:34 Allergies: Coded Allergies: No Known Allergies (Unverified , 12/27/13) ROS Limited/Unobtainable: Yes Subjective 86 YO F admitted with anemia and hypernatremia. Cover for Int Med-Dr Cruz. Objective Last Vital Signs Date Time Temp Pulse Resp B/P Pulse Ox O2 Delivery O2 Flow Rate FiO2 01/07/17 11:22 98.2 64 21 95/57 96 Nasal Cannula 3.0 01/05/17 21:22 28 Laboratory Tests Test 01/06/17 15:00 01/07/17 06:10 Stool Occult Blood Negative (NEGATIVE) White Blood Count 13.7 K/UL (4.8-10.8) H Red Blood Count 3.19 M/UL (4.20-5.40) L Hemoglobin 9.3 G/DL (12.0-16.0) L Hematocrit 28.3 % (37.0-47.0) L Mean Corpuscular Volume 89 FL (80-99) Mean Corpuscular Hemoglobin 29.1 PG (27.0-31.0) Mean Corpuscular Hemoglobin Concent 32.8 G/DL (32.0-36.0) Red Cell Distribution Width 16.5 % (11.6-14.8) H Platelet Count 307 K/UL (150-450) Mean Platelet Volume 7.5 FL (6.5-10.1) Neutrophils (%) (Auto) 77.1 % (45.0-75.0) H Lymphocytes (%) (Auto) 14.0 % (20.0-45.0) L Monocytes (%) (Auto) 6.7 % (1.0-10.0) Eosinophils (%) (Auto) 1.4 % (0.0-3.0) Basophils (%) (Auto) 0.8 % (0.0-2.0) Microbiology Date/Time Source Procedure Growth Status 01/06/17 01:10 Sputum Gram Stain - Final Resulted 01/06/17 01:10 Sputum Sputum Culture Pending Resulted Intake and Output 01/06/17 01/07/17 19:00 07:00 Intake Total 1850 ml 1542.5 ml Output Total 300 ml 300 ml Balance 1550 ml 1242.5 ml Free Water 200 ml 100 ml IV Total 1065 ml 947.5 ml Tube Feeding 585 ml 495 ml Output Urine Total 300 ml 300 ml Objective General Appearance: moderate distress, cachetic, lethargic, thin EENT: PERRL/EOMI, normal ENT inspection Neck: non-tender, normal alignment, supple, normal inspection Cardiovascular: normal peripheral pulses, normal rate, regular rhythm, no gallop/murmur, no JVD Respiratory/Chest: decreased breath sounds, crackles/rales, rhonchi - bilaterally, expiratory wheezing Abdomen: non tender, soft, no organomegaly, no mass, decreased bowel sounds Skin: normal pigmentation, warm/dry Assessment/Plan Problem List: (1) Pneumonia Assessment & Plan: CXR=bibasilar infiltrates. Start empiric zosyn and flagyl for possible aspiration pneumonia. See ID consult-Dr Gandara (2) Hypertension Assessment & Plan: Cont lopressor (3) Diabetes mellitus (4) Peripheral vascular disease (5) Coronary artery disease (6) Atrial fibrillation (7) DVT (deep venous thrombosis) (8) Renal failure (9) Anemia Assessment & Plan: S/P transfusion 2 units PRBC on 01/03/17 (10) Alzheimer's dementia (11) Hypernatremia (12) Pacemaker (13) Hypotension Assessment & Plan: ?sepsis? NS bolus. Start zosyn and Flagyl for possible asp pneumonia (14) Osteomyelitis of sacrum Assessment & Plan: See ID note. Cont zosyn Status: not improved Assessment/Plan Discussed with daughters at bedside. BRADLEY HOLLAND Jan 07, 2017 14:42
[2017-01-07 16:00] VITALS: BP 82/54
--- NOTE | 2017-01-07 18:43 | Cardiac Electrophysiology PN ---
Subjective Subjective Was in hospital a month ago. Biotronic pacer interrogation in office Nl Fx, Chronic atrial fib, CAD PEG [id number] Objective Last 24 Hour Vital Signs Date Time Temp Pulse Resp B/P Pulse Ox O2 Delivery O2 Flow Rate FiO2 01/07/17 16:00 97.9 65 20 82/54 97 Nasal Cannula 3.0 01/07/17 11:22 98.2 64 21 95/57 96 Nasal Cannula 3.0 01/07/17 09:38 98.1 01/07/17 08:39 68 106/51 01/07/17 07:59 98.1 68 21 106/51 100 Nasal Cannula 3.0 01/07/17 04:00 98.2 77 20 112/69 97 Nasal Cannula 3.0 01/07/17 00:00 98.1 62 20 100/60 97 Room Air 01/06/17 20:54 94 Nasal Cannula 2.0 01/06/17 20:54 Nasal Cannula 2.0 01/06/17 20:00 97.7 67 20 93/49 95 Nasal Cannula 2.0 Intake and Output 01/06/17 01/07/17 19:00 07:00 Intake Total 1850 ml 1542.5 ml Output Total 300 ml 300 ml Balance 1550 ml 1242.5 ml Free Water 200 ml 100 ml IV Total 1065 ml 947.5 ml Tube Feeding 585 ml 495 ml Output Urine Total 300 ml 300 ml Laboratory Tests Test 01/07/17 06:10 White Blood Count 13.7 K/UL (4.8-10.8) H Red Blood Count 3.19 M/UL (4.20-5.40) L Hemoglobin 9.3 G/DL (12.0-16.0) L Hematocrit 28.3 % (37.0-47.0) L Mean Corpuscular Volume 89 FL (80-99) Mean Corpuscular Hemoglobin 29.1 PG (27.0-31.0) Mean Corpuscular Hemoglobin Concent 32.8 G/DL (32.0-36.0) Red Cell Distribution Width 16.5 % (11.6-14.8) H Platelet Count 307 K/UL (150-450) Mean Platelet Volume 7.5 FL (6.5-10.1) Neutrophils (%) (Auto) 77.1 % (45.0-75.0) H Lymphocytes (%) (Auto) 14.0 % (20.0-45.0) L Monocytes (%) (Auto) 6.7 % (1.0-10.0) Eosinophils (%) (Auto) 1.4 % (0.0-3.0) Basophils (%) (Auto) 0.8 % (0.0-2.0) Microbiology Date/Time Source Procedure Growth Status 01/06/17 01:10 Sputum Gram Stain - Final Resulted 01/06/17 01:10 Sputum Sputum Culture Pending Resulted STAR ROA Jan 07, 2017 18:43
[2017-01-07 19:00] VITALS: BP 101/49
--- NOTE | 2017-01-07 20:48 | Consultation ---
DATE OF CONSULTATION: 01/07/2017 INFECTIOUS DISEASE CONSULTATION REQUESTING PHYSICIAN: Titi Cruz M.D. REASON FOR CONSULTATION: Leukocytosis, pneumonia and osteomyelitis. HISTORY OF PRESENT ILLNESS: This is an 86-year-old female with multiple medical problems, recently admitted earlier this month with large stage IV sacral decubitus ulcer and osteomyelitis status post debridement. She was discharged to correction on IV Invanz and is readmitted on 01/03/2017 with anemia and hypernatremia. She has been transfused two units of packed red blood cells and hemoglobin is now stable. Hypernatremia has improved. Her antibiotics were not continued upon admission and the patient's white blood cell count has been slowly trending up. She has been afebrile. The sputum culture is pending and urine culture grew low colony counts of Latricia albicans with a negative urinalysis. A surveillance wound culture grew multi-drug resistant Acinetobacter. Chest x-ray shows possible bibasilar infiltrates. The patient was started on Zosyn and Flagyl last night and ID now consulted to assist in management. PAST MEDICAL HISTORY: 1. Bilateral renal cyst. 2. Alzheimer's dementia. 3. Hypertension. 4. Diabetes. 5. Peripheral vascular disease. 6. Coronary artery disease. 7. Paroxysmal atrial fibrillation. 8. DVT. 9. Anemia of chronic disease. 10. Gastritis. 11. Stage IV sacral decubitus ulcer with osteomyelitis, confirmed by bone biopsy. PAST SURGICAL HISTORY: 1. PEG tube placement on 12/19/2016. 2. Pacemaker placement. MEDICATIONS: 1. Zosyn. 2. Flagyl. 3. Metoprolol. 4. Subcutaneous heparin. ALLERGIES: No known drug allergies. SOCIAL HISTORY: The patient is a resident in correction. No active tobacco, alcohol, or illicit drug abuse. FAMILY HISTORY: Noncontributory. REVIEW OF SYSTEMS: Unable to obtain. PHYSICAL EXAMINATION: GENERAL: No apparent distress. Nontoxic appearing. VITAL SIGNS: Maximum temperature 98.2 degrees, blood pressure 106/51, heart rate in the 60s, respiratory rate 20, and saturating 100% on two liters nasal cannula. CARDIOVASCULAR: Regular rate and rhythm. No murmurs. PULMONARY: Coarse breath sounds bilaterally. ABDOMEN: Bowel sounds present. Soft, nondistended, and nontender. PEG tube and Randolph catheter in place. EXTREMITIES: Wounds are bandaged. Photographic evidence reviewed of stage IV sacral decubitus ulcer and right heel eschar. LABORATORY AND DIAGNOSTIC DATA: White blood cell count 13.7 increased from 12.8 with left shift, hemoglobin 9.3, and platelets 307,000. Sodium 140, potassium 5.2, chloride 104, bicarbonate 24, BUN 52, and creatinine 0.9. ESR 77. Liver function tests within normal limits. Microbiology, 1. On 01/03/2017, sputum culture pending. 2. On 01/04/2017, urine culture 10,000 to 20,000 colony-forming units of Latricia albicans. 3. On 01/03/2017, sacral decubitus wound culture 4+ of multi-drug resistant Acinetobacter baumannii. 4. On 12/14/2016, sacral bone culture 3+ quinolone resistant E. coli. Imaging, 5. On 01/05/2017 chest x-ray, parenchymal opacity is present at the lung bases. ASSESSMENT: 1. Probable healthcare-associated pneumonia. Sputum cultures pending. Chest x-ray, as above. 2. Acute sickle osteomyelitis. Recommended to complete six weeks of antibiotics. Invanz was not continued upon admission and the patient missed three days of antibiotics. Surveillance wound culture is growing multi-drug resistant Acinetobacter and bone culture grew quinolone resistant E. coli. Also history of growth of vancomycin sensitive Enterococcus faecalis, strep viridans and Citrobacter koseri and Bacteroides. 3. Right heel eschar. 4. Latricia albicans urinary colonization without low colonic count growth and negative urinalysis. 5. Leukocytosis, worsening and afebrile. 6. Acute on chronic anemia status post two units packed red blood cells, as she had a recent upper endoscopy showing atrophic gastritis and hyperplastic polyps. 7. Hypernatremia, improved. 8. Alzheimer's dementia. 9. Dysphagia, status post percutaneous endoscopic gastrostomy tube placement on 12/19/2016. 10. half-way resident. 11. Vancomycin-resistant Enterococcus colonized. 12. No known drug allergies. 13. Full Code. PLAN: 1. Continue empiric Zosyn and Flagyl day #1 pending cultures. This is approximately antibiotic day #21 of 42, having missed three days of antibiotics. 2. Followup final cultures. 3. Monitor CBC and temperatures. 4. Monitor BMP. 5. Monitor chest x-ray. 6. Wound care. Thank you. We will follow. Harley Gandara M.D. DR: KIA JOB#: [id number] CC: Asa Cline M.D. Arash Alborzi, M.D
--- NOTE | 2017-01-07 21:33 | Pulmonology Progress Note ---
Assessment/Plan Problems: (1) Anemia (2) Hypernatremia (3) Debility (4) Decubital ulcer (5) Alzheimer's dementia (6) Pacemaker (7) Attention to G-tube Subjective Allergies: Coded Allergies: No Known Allergies (Unverified , 12/27/13) Objective Last 24 Hour Vital Signs Date Time Temp Pulse Resp B/P Pulse Ox O2 Delivery O2 Flow Rate FiO2 01/07/17 19:00 97.2 69 20 101/49 97 Nasal Cannula 3.0 01/07/17 16:00 97.9 65 20 82/54 97 Nasal Cannula 3.0 01/07/17 11:22 98.2 64 21 95/57 96 Nasal Cannula 3.0 01/07/17 09:38 98.1 01/07/17 08:39 68 106/51 01/07/17 07:59 98.1 68 21 106/51 100 Nasal Cannula 3.0 01/07/17 04:00 98.2 77 20 112/69 97 Nasal Cannula 3.0 01/07/17 00:00 98.1 62 20 100/60 97 Room Air Intake and Output 01/06/17 01/07/17 19:00 07:00 Intake Total 1850 ml 1542.5 ml Output Total 300 ml 300 ml Balance 1550 ml 1242.5 ml Free Water 200 ml 100 ml IV Total 1065 ml 947.5 ml Tube Feeding 585 ml 495 ml Output Urine Total 300 ml 300 ml Microbiology Date/Time Source Procedure Growth Status 01/06/17 01:10 Sputum Gram Stain - Final Resulted 01/06/17 01:10 Sputum Sputum Culture Pending Resulted Laboratory Tests 01/07/17 06:10: White Blood Count 13.7H, Red Blood Count 3.19L, Hemoglobin 9.3L, Hematocrit 28.3L, Mean Corpuscular Volume 89, Mean Corpuscular Hemoglobin 29.1, Mean Corpuscular Hemoglobin Concent 32.8, Red Cell Distribution Width 16.5H, Platelet Count 307, Mean Platelet Volume 7.5, Neutrophils (%) (Auto) 77.1H, Lymphocytes (%) (Auto) 14.0L, Monocytes (%) (Auto) 6.7, Eosinophils (%) (Auto) 1.4, Basophils (%) (Auto) 0.8 Current Medications Medications (Trade) Dose Ordered Sig/David Route PRN Reason Start Time Stop Time Status Last Admin Dose Admin Acetaminophen (Tylenol) 160 mg TID PRN GT Mild Pain/Temp > 100.5 01/03/17 11:00 02/02/17 10:59 Ascorbic Acid (Vitamin C) 500 mg DAILY GT 01/04/17 09:00 02/03/17 08:59 01/07/17 08:39 Bisacodyl (Dulcolax) 10 mg DAILYPRN PRN RECTAL Constipation 01/03/17 11:00 02/02/17 10:59 Dextrose (D5W 1000ml) 1,000 ml @ 75 mls/hr [id number] IV 01/03/17 11:30 02/02/17 11:29 01/07/17 08:39 Dextrose (Dextrose 50%) STAT PRN IV Hypoglycemia 01/03/17 11:00 02/02/17 10:59 Heparin Sodium (Porcine) (Heparin 5000 units/ml) 5,000 units EVERY 12 HOURS SUBQ 01/03/17 12:00 02/02/17 11:59 01/07/17 08:49 Magnesium Hydroxide (Mom) 30 ml DAILYPRN PRN GT Constipation 01/03/17 11:00 02/02/17 10:59 Metoprolol Tartrate (Lopressor) 25 mg Q12HR GT 01/03/17 21:00 02/02/17 20:59 01/07/17 08:39 Metronidazole (Flagyl) 100 ml @ 100 mls/hr Q8HR@0200,1000,1800 IVPB 01/07/17 02:00 01/14/17 01:59 01/07/17 17:14 Piperacillin Sod/ Tazobactam Sod 3.375 gm/Dextrose 110 ml @ 27.5 mls/hr Q8HR@0400,1200,2000 IVPB 01/06/17 20:00 01/13/17 19:59 01/07/17 12:34 Promethazine HCl/ Codeine 5 ml 5 ml Q6HR PRN ORAL For Cough 01/05/17 07:00 02/04/17 06:59 01/05/17 19:24 Sodium Hypochlorite (Dakin's Half Strength) 1 applic DAILY TOPIC 01/05/17 09:00 02/04/17 08:59 01/07/17 09:00 Sodium Hypochlorite (Dakin's Half Strength) 1 applic PRN PRN TOPIC soiled/dislodged 01/05/17 01:45 02/04/17 01:44 Tramadol HCl (Ultram) 50 mg Q8H PRN GT Moderate Pain (Pain Scale 4-6) 01/03/17 11:00 01/10/17 10:59 01/07/17 08:39 Zinc Sulfate (Zinc Sulfate) 220 mg DAILY ORAL 01/04/17 09:00 02/03/17 08:59 01/07/17 12:34 EVENS CASTELLON Jan 07, 2017 21:33
[2017-01-08] VITALS: BP 91/49
[2017-01-08] MEDS: metroNIDAZOLE 500mg 100 ML IVPB SCH ×3 (02:13→18:42)
[2017-01-08] MEDS: Piperacillin/Tazobactam 3.375 GM in D5W 110 ML IVPB SCH ×3 (03:20→20:28)
[2017-01-08 04:00] VITALS: BP 108/59
[2017-01-08 07:39] LABS: EOSINOPHILS % (AUTO) 1.7 % (0.0-3.0); LYMPHOCYTES % (AUTO) 15.5 % (20.0-45.0); MEAN CORPUSCULAR HEMOGLOBIN 29.8 PG (27.0-31.0); MEAN CORPUSCULAR HGB CONC 33.6 G/DL (32.0-36.0); MEAN CORPUSCULAR VOLUME 89 FL (80-99); MEAN PLATELET VOLUME 7.3 FL (6.5-10.1); MONOCYTES % (AUTO) 8.1 % (1.0-10.0); NEUTROPHILS % (AUTO) 73.8 % (45.0-75.0); PLATELET COUNT 300 K/UL (150-450); RED BLOOD COUNT 3.17 M/UL (4.20-5.40); RED CELL DISTRIBUTION WIDTH 16.7 % (11.6-14.8); WHITE BLOOD COUNT 10.5 K/UL (4.8-10.8)
[2017-01-08 07:47] LABS: ANION GAP 10 (5-15); CALCIUM 9.1 mg/dL (8.6-10.2); CARBON DIOXIDE 25 mEQ/L (20-30); CHLORIDE 100 mEQ/L (98-107); HEMOLYSIS 4; POTASSIUM 4.9 mEQ/L (3.4-4.9); SODIUM 135 mEQ/L (135-145)
[2017-01-08 08:16] VITALS: BP 94/60
[2017-01-08] MEDS: Metoprolol 25mg tab GT SCH ×2 (09:00→20:29)
[2017-01-08] MEDS: Heparin 5000 units/ml inj SUBQ SCH ×2 (09:00→20:30)
[2017-01-08] MEDS: Zinc Sulfate 220mg cap ORAL SCH (09:57)
[2017-01-08] MEDS: Ascorbic Acid 500mg tab GT SCH (09:57)
[2017-01-08] MEDS: Dakin's 0.25% (Half Strength) 16oz TOPIC SCH (09:59)
--- NOTE | 2017-01-08 10:00 | Infectious Diseases Prog Note ---
Assessment/Plan Assessment/Plan ASSESSMENT: 86 y/o female with: // Probable HCAP / aspiration - SCx GNRx2, NRF, C.albicans - CXR 01/05: Parenchymal opacities present at the lung bases // Acute sacral osteomyelitis ( confirmed by bone bx ) - recommended to completed 6 weeks IV ABX ( invanz - was not continued upon admission, missed 3d ). Surveillance WCx MDR-ACB, GNR #2, yeast - SP I&D 12/14: WCx VSE.faecalis, S.viridans, E.coli, C.koseri, Bacteroides // Right heel eschar // C.albicans urinary colonization - low colony count, UA(-) // Leukocytosis - improved, afebrile // Acute on chronic anemia SP 2units PRBCs - Hgb stable - h/o atrophic gastritis, hyperplastic polyps // Hypernatremia - improved // Alzheimer's dementia // Dysphagia SP PEG 12/19/16 // NH resident // VRE colonized // NKDA // Full Code PLAN: - continue empiric zosyn, flagyl d# 2 pending cultures ( ABX d# / for osteomyelitis *missed 3d ) ( 01/03 SP invanz ABX d# / ) ( SP IV vancomycin, zosyn-->rocephin ) - f/u cultures, adjust ABX accordingly - monitor CBC, temperatures - monitor BMP - monitor CXR - wound care Subjective Allergies: Coded Allergies: No Known Allergies (Unverified , 12/27/13) Subjective remains afebrile. leukocytosis resolved Objective Vital Signs Last 24 Hour Vital Signs Date Time Temp Pulse Resp B/P Pulse Ox O2 Delivery O2 Flow Rate FiO2 01/08/17 08:16 98.3 76 21 94/60 95 01/08/17 06:10 96.8 01/08/17 04:00 96.8 60 20 108/59 100 Nasal Cannula 3.0 01/08/17 00:00 98.1 64 20 91/49 100 Nasal Cannula 3.0 01/07/17 19:00 97.2 69 20 101/49 97 Nasal Cannula 3.0 01/07/17 16:00 97.9 65 20 82/54 97 Nasal Cannula 3.0 01/07/17 11:22 98.2 64 21 95/57 96 Nasal Cannula 3.0 Height (Feet): 5 Height (Inches): 3.00 Weight (Pounds): 95 Microbiology Date/Time Source Procedure Growth Status 01/06/17 01:10 Sputum Gram Stain - Final Resulted 01/06/17 01:10 Sputum Culture - Preliminary Gram Negative Bacillus 1 Gram Negative Bacillus 2 Latricia Albicans Usual Upper Respiratory Dee Resulted Laboratory Tests Test 01/08/17 05:00 White Blood Count 10.5 K/UL (4.8-10.8) Red Blood Count 3.17 M/UL (4.20-5.40) L Hemoglobin 9.4 G/DL (12.0-16.0) L Hematocrit 28.1 % (37.0-47.0) L Mean Corpuscular Volume 89 FL (80-99) Mean Corpuscular Hemoglobin 29.8 PG (27.0-31.0) Mean Corpuscular Hemoglobin Concent 33.6 G/DL (32.0-36.0) Red Cell Distribution Width 16.7 % (11.6-14.8) H Platelet Count 300 K/UL (150-450) Mean Platelet Volume 7.3 FL (6.5-10.1) Neutrophils (%) (Auto) 73.8 % (45.0-75.0) Lymphocytes (%) (Auto) 15.5 % (20.0-45.0) L Monocytes (%) (Auto) 8.1 % (1.0-10.0) Eosinophils (%) (Auto) 1.7 % (0.0-3.0) Basophils (%) (Auto) 1.0 % (0.0-2.0) Sodium Level 135 mEQ/L (135-145) Potassium Level 4.9 mEQ/L (3.4-4.9) Chloride Level 100 mEQ/L (98-107) Carbon Dioxide Level 25 mEQ/L (20-30) Anion Gap 10 (5-15) Blood Urea Nitrogen 54 mg/dL (7-23) H Creatinine 1.0 mg/dL (0.5-0.9) H Estimat Glomerular Filtration Rate mL/min (>60) Glucose Level 104 mg/dL (74-106) Calcium Level 9.1 mg/dL (8.6-10.2) Current Medications Medications (Trade) Dose Ordered Sig/David Route PRN Reason Start Time Stop Time Status Last Admin Dose Admin Acetaminophen (Tylenol) 160 mg TID PRN GT Mild Pain/Temp > 100.5 01/03/17 11:00 02/02/17 10:59 01/08/17 05:40 Ascorbic Acid (Vitamin C) 500 mg DAILY GT 01/04/17 09:00 02/03/17 08:59 01/07/17 08:39 Bisacodyl (Dulcolax) 10 mg DAILYPRN PRN RECTAL Constipation 01/03/17 11:00 02/02/17 10:59 Dextrose (D5W 1000ml) 1,000 ml @ 75 mls/hr [id number] IV 01/03/17 11:30 02/02/17 11:29 01/07/17 22:12 Dextrose (Dextrose 50%) STAT PRN IV Hypoglycemia 01/03/17 11:00 02/02/17 10:59 Heparin Sodium (Porcine) (Heparin 5000 units/ml) 5,000 units EVERY 12 HOURS SUBQ 01/03/17 12:00 02/02/17 11:59 01/07/17 22:10 Magnesium Hydroxide (Mom) 30 ml DAILYPRN PRN GT Constipation 01/03/17 11:00 02/02/17 10:59 Metoprolol Tartrate (Lopressor) 25 mg Q12HR GT 01/03/17 21:00 02/02/17 20:59 01/07/17 08:39 Metronidazole (Flagyl) 100 ml @ 100 mls/hr Q8HR@0200,1000,1800 IVPB 01/07/17 02:00 01/14/17 01:59 01/08/17 02:13 Piperacillin Sod/ Tazobactam Sod 3.375 gm/Dextrose 110 ml @ 27.5 mls/hr Q8HR@0400,1200,2000 IVPB 01/06/17 20:00 01/13/17 19:59 01/08/17 03:20 Promethazine HCl/ Codeine 5 ml 5 ml Q6HR PRN ORAL For Cough 01/05/17 07:00 02/04/17 06:59 01/05/17 19:24 Sodium Hypochlorite (Dakin's Half Strength) 1 applic DAILY TOPIC 01/05/17 09:00 02/04/17 08:59 01/07/17 09:00 Sodium Hypochlorite (Dakin's Half Strength) 1 applic PRN PRN TOPIC soiled/dislodged 01/05/17 01:45 02/04/17 01:44 Tramadol HCl (Ultram) 50 mg Q8H PRN GT Moderate Pain (Pain Scale 4-6) 01/03/17 11:00 01/10/17 10:59 01/07/17 08:39 Zinc Sulfate (Zinc Sulfate) 220 mg DAILY ORAL 01/04/17 09:00 02/03/17 08:59 01/07/17 12:34 STUART COBURN Jan 08, 2017 10:00
[2017-01-08 11:52] VITALS: BP 106/44
[2017-01-08 16:00] VITALS: BP 118/80
[2017-01-08] MEDS: traMADol 50mg tab GT PRN (18:42)
[2017-01-08 19:00] VITALS: BP 116/59
--- NOTE | 2017-01-08 22:39 | Pulmonology Progress Note ---
Assessment/Plan Problems: (1) Anemia (2) Hypernatremia (3) Debility (4) Decubital ulcer (5) Alzheimer's dementia (6) Pacemaker (7) Attention to G-tube Subjective Allergies: Coded Allergies: No Known Allergies (Unverified , 12/27/13) Objective Last 24 Hour Vital Signs Date Time Temp Pulse Resp B/P Pulse Ox O2 Delivery O2 Flow Rate FiO2 01/08/17 20:29 67 116/59 01/08/17 19:30 Nasal Cannula 2.0 28 01/08/17 19:30 97 Nasal Cannula 2.0 28 01/08/17 19:00 97.9 67 20 116/59 99 Nasal Cannula 3.0 01/08/17 16:00 97.7 52 20 118/80 93 Nasal Cannula 3.0 01/08/17 12:44 Nasal Cannula 2.0 28 01/08/17 12:44 96 Nasal Cannula 2.0 28 01/08/17 11:52 98.6 117 19 106/44 95 Nasal Cannula 2.0 01/08/17 09:00 76 94/60 01/08/17 08:16 98.3 76 21 94/60 95 01/08/17 06:10 96.8 01/08/17 04:00 96.8 60 20 108/59 100 Nasal Cannula 3.0 01/08/17 00:00 98.1 64 20 91/49 100 Nasal Cannula 3.0 Intake and Output 01/07/17 01/08/17 19:00 07:00 Intake Total 1215 ml 1242.5 ml Output Total 850 ml 2200 ml Balance 365 ml -957.5 ml Intake Oral 0 ml Free Water 50 ml 30 ml IV Total 850 ml 852.5 ml Tube Feeding 315 ml 360 ml Output Urine Total 450 ml 1500 ml Stool Total 400 ml 700 ml # Bowel Movements 1 Microbiology Date/Time Source Procedure Growth Status 01/06/17 01:10 Sputum Gram Stain - Final Resulted 01/06/17 01:10 Sputum Culture - Preliminary Gram Negative Bacillus 1 Gram Negative Bacillus 2 Latricia Albicans Usual Upper Respiratory Dee Resulted Laboratory Tests 01/08/17 05:00: White Blood Count 10.5, Red Blood Count 3.17L, Hemoglobin 9.4L, Hematocrit 28.1L , Mean Corpuscular Volume 89, Mean Corpuscular Hemoglobin 29.8, Mean Corpuscular Hemoglobin Concent 33.6, Red Cell Distribution Width 16.7H, Platelet Count 300, Mean Platelet Volume 7.3, Neutrophils (%) (Auto) 73.8, Lymphocytes (%) (Auto) 15.5L, Monocytes (%) (Auto) 8.1, Eosinophils (%) (Auto) 1.7, Basophils (%) (Auto) 1.0, Sodium Level 135, Potassium Level 4.9, Chloride Level 100, Carbon Dioxide Level 25, Anion Gap 10, Blood Urea Nitrogen 54H, Creatinine 1.0H, Estimat Glomerular Filtration Rate , Glucose Level 104, Calcium Level 9.1 Current Medications Medications (Trade) Dose Ordered Sig/David Route PRN Reason Start Time Stop Time Status Last Admin Dose Admin Acetaminophen (Tylenol) 160 mg TID PRN GT Mild Pain/Temp > 100.5 01/03/17 11:00 02/02/17 10:59 01/08/17 05:40 Ascorbic Acid (Vitamin C) 500 mg DAILY GT 01/04/17 09:00 02/03/17 08:59 01/08/17 09:57 Bisacodyl (Dulcolax) 10 mg DAILYPRN PRN RECTAL Constipation 01/03/17 11:00 02/02/17 10:59 Dextrose (D5W 1000ml) 1,000 ml @ 75 mls/hr [id number] IV 01/03/17 11:30 02/02/17 11:29 01/08/17 11:57 Dextrose (Dextrose 50%) STAT PRN IV Hypoglycemia 01/03/17 11:00 02/02/17 10:59 Heparin Sodium (Porcine) (Heparin 5000 units/ml) 5,000 units EVERY 12 HOURS SUBQ 01/03/17 12:00 02/02/17 11:59 01/08/17 20:30 Magnesium Hydroxide (Mom) 30 ml DAILYPRN PRN GT Constipation 01/03/17 11:00 02/02/17 10:59 Metoprolol Tartrate (Lopressor) 25 mg Q12HR GT 01/03/17 21:00 02/02/17 20:59 01/08/17 20:29 Metronidazole (Flagyl) 100 ml @ 100 mls/hr Q8HR@0200,1000,1800 IVPB 01/07/17 02:00 01/14/17 01:59 01/08/17 18:42 Piperacillin Sod/ Tazobactam Sod 3.375 gm/Dextrose 110 ml @ 27.5 mls/hr Q8HR@0400,1200,2000 IVPB 01/06/17 20:00 01/13/17 19:59 01/08/17 20:28 Promethazine HCl/ Codeine 5 ml 5 ml Q6HR PRN ORAL For Cough 01/05/17 07:00 02/04/17 06:59 01/05/17 19:24 Sodium Hypochlorite (Dakin's Half Strength) 1 applic DAILY TOPIC 01/05/17 09:00 02/04/17 08:59 01/08/17 09:59 Sodium Hypochlorite (Dakin's Half Strength) 1 applic PRN PRN TOPIC soiled/dislodged 01/05/17 01:45 02/04/17 01:44 Tramadol HCl (Ultram) 50 mg Q8H PRN GT Moderate Pain (Pain Scale 4-6) 01/03/17 11:00 01/10/17 10:59 01/08/17 18:42 Zinc Sulfate (Zinc Sulfate) 220 mg DAILY ORAL 01/04/17 09:00 02/03/17 08:59 01/08/17 09:57 EVENS CASTELLON Jan 08, 2017 22:39
[2017-01-09] VITALS: BP 125/61
[2017-01-09] MEDS: metroNIDAZOLE 500mg 100 ML IVPB SCH ×3 (02:13→17:56)
[2017-01-09] MEDS: Piperacillin/Tazobactam 3.375 GM in D5W 110 ML IVPB SCH (03:17)
[2017-01-09] MEDS: traMADol 50mg tab GT PRN ×2 (03:50→12:02)
[2017-01-09 04:00] VITALS: BP_SYST 115; BP_SYST 118; BP_DIAS 59; BP_DIAS 63
[2017-01-09 08:11] VITALS: BP 88/51
[2017-01-09] MEDS: Metoprolol 25mg tab GT SCH (09:00)
--- NOTE | 2017-01-09 09:04 | Infectious Diseases Prog Note ---
Assessment/Plan Assessment/Plan ASSESSMENT: 86 y/o female with: // Probable HCAP / aspiration - SCx ACB, MDR-PSA, NRF, C.albicans - CXR 01/05: Parenchymal opacities present at the lung bases // Acute sacral osteomyelitis ( confirmed by bone bx ) - recommended to completed 6 weeks IV ABX ( invanz - was not continued upon admission, missed 3d ). 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, UA(-) // Leukocytosis - resolved, afebrile // Acute on chronic anemia SP 2units PRBCs - Hgb stable - h/o atrophic gastritis, hyperplastic polyps // Hypernatremia - improved // Alzheimer's dementia // Dysphagia SP PEG 12/19/16 // NH resident // VRE colonized // NKDA // Full Code PLAN: - change empiric zosyn d# 3 to IV colistin d# 1 based on cultures, add IV vancomycin d# 1 GP wound coverage, continue flagyl d# 3 ( ABX d# 23 / 42 for osteomyelitis *missed 3d on admission ) ( 01/03 SP invanz ABX d# 17 / 42 ) ( SP IV vancomycin, zosyn-->rocephin ) - f/u final cultures - monitor CBC, temperatures - monitor BMP - monitor CXR - wound care Subjective Allergies: Coded Allergies: No Known Allergies (Unverified , 12/27/13) Subjective remains afebrile. leukocytosis resolved Objective Vital Signs Last 24 Hour Vital Signs Date Time Temp Pulse Resp B/P Pulse Ox O2 Delivery O2 Flow Rate FiO2 01/09/17 08:11 98.1 66 21 88/51 96 Room Air 01/09/17 04:00 97.3 66 20 118/63 99 Nasal Cannula 3.0 01/09/17 00:00 97.9 63 20 125/61 93 Nasal Cannula 3.0 01/08/17 20:29 67 116/59 01/08/17 19:30 Nasal Cannula 2.0 28 01/08/17 19:30 97 Nasal Cannula 2.0 28 01/08/17 19:00 97.9 67 20 116/59 99 Nasal Cannula 3.0 01/08/17 16:00 97.7 52 20 118/80 93 Nasal Cannula 3.0 01/08/17 12:44 Nasal Cannula 2.0 28 01/08/17 12:44 96 Nasal Cannula 2.0 28 01/08/17 11:52 98.6 117 19 106/44 95 Nasal Cannula 2.0 01/08/17 09:00 76 94/60 Height (Feet): 5 Height (Inches): 3.00 Weight (Pounds): 95 Current Medications Medications (Trade) Dose Ordered Sig/David Route PRN Reason Start Time Stop Time Status Last Admin Dose Admin Acetaminophen (Tylenol) 160 mg TID PRN GT Mild Pain/Temp > 100.5 01/03/17 11:00 02/02/17 10:59 01/08/17 05:40 Ascorbic Acid (Vitamin C) 500 mg DAILY GT 01/04/17 09:00 02/03/17 08:59 01/08/17 09:57 Bisacodyl (Dulcolax) 10 mg DAILYPRN PRN RECTAL Constipation 01/03/17 11:00 02/02/17 10:59 Dextrose (D5W 1000ml) 1,000 ml @ 75 mls/hr [id number] IV 01/03/17 11:30 02/02/17 11:29 01/09/17 00:44 Dextrose (Dextrose 50%) STAT PRN IV Hypoglycemia 01/03/17 11:00 02/02/17 10:59 Heparin Sodium (Porcine) (Heparin 5000 units/ml) 5,000 units EVERY 12 HOURS SUBQ 01/03/17 12:00 02/02/17 11:59 01/08/17 20:30 Magnesium Hydroxide (Mom) 30 ml DAILYPRN PRN GT Constipation 01/03/17 11:00 02/02/17 10:59 Metoprolol Tartrate (Lopressor) 25 mg Q12HR GT 01/03/17 21:00 02/02/17 20:59 01/08/17 20:29 Metronidazole (Flagyl) 100 ml @ 100 mls/hr Q8HR@0200,1000,1800 IVPB 01/07/17 02:00 01/14/17 01:59 01/09/17 02:13 Piperacillin Sod/ Tazobactam Sod 3.375 gm/Dextrose 110 ml @ 27.5 mls/hr Q8HR@0400,1200,2000 IVPB 01/06/17 20:00 01/13/17 19:59 01/09/17 03:17 Promethazine HCl/ Codeine 5 ml 5 ml Q6HR PRN ORAL For Cough 01/05/17 07:00 02/04/17 06:59 01/05/17 19:24 Sodium Hypochlorite (Dakin's Half Strength) 1 applic DAILY TOPIC 01/05/17 09:00 02/04/17 08:59 01/08/17 09:59 Sodium Hypochlorite (Dakin's Half Strength) 1 applic PRN PRN TOPIC soiled/dislodged 01/05/17 01:45 02/04/17 01:44 Tramadol HCl (Ultram) 50 mg Q8H PRN GT Moderate Pain (Pain Scale 4-6) 01/03/17 11:00 01/10/17 10:59 01/09/17 03:50 Zinc Sulfate (Zinc Sulfate) 220 mg DAILY ORAL 01/04/17 09:00 02/03/17 08:59 01/08/17 09:57 STUART COBURN Jan 09, 2017 09:04
[2017-01-09] MEDS: Dakin's 0.25% (Half Strength) 16oz TOPIC SCH (09:07)
[2017-01-09] MEDS: Ascorbic Acid 500mg tab GT SCH (09:07)
[2017-01-09] MEDS: Zinc Sulfate 220mg cap ORAL SCH (09:07)
[2017-01-09] MEDS: Heparin 5000 units/ml inj SUBQ SCH (09:11)
[2017-01-09 09:28] VITALS: BP 95/54
--- NOTE | 2017-01-09 10:18 | Consultation ---
DATE OF CONSULTATION: 01/07/2017 CARDIOLOGY CONSULTATION REFERRING PHYSICIAN: Titi Cruz M.D. REASON FOR CONSULTATION: Management of hypertension and coronary artery disease as well as atrial fibrillation. HISTORY OF PRESENT ILLNESS: The patient is an 86-year-old -[place] lady under my Cardiology care, who was at the [facility], was admitted to [facility] for her low hemoglobin and hematocrit as well as hypernatremia. The patient has a sodium of 154 with hemoglobin 7.5 and hematocrit of 24.4. She was admitted for severe anemia and hypernatremia. It is also of note that the patient was admitted just about a month ago and I saw her. At the time of my evaluation, her daughter is at the bedside. REVIEW OF SYSTEMS: Cannot be obtained at this time due to altered mental status. PAST MEDICAL HISTORY: Includes: 1. Hypertension. 2. Diabetes and coronary artery disease. 3. Atrial fibrillation. 4. Dysphagia, status post G-tube placement on last admission. 5. Stage IV decubitus ulcer in the sacral area. 6. Anemia. 7. Arthritis. PAST SURGICAL HISTORY: Includes history of pacemaker placement. FAMILY HISTORY: Noncontributory. SOCIAL HISTORY: She does not smoke or drink alcohol. PHYSICAL EXAMINATION: VITAL SIGNS: Blood pressure of 82/54, pulse is 65, respiratory rate is 20, and temperature is 97.5. NECK: Showed no JVD. LUNGS: Coarse rhonchi. CARDIOVASCULAR: Shows regular S1 and S2 with no gallop or murmur. ABDOMEN: Soft and status post G-tube. EXTREMITIES: No pitting edema. LABORATORY AND DIAGNOSTIC DATA: Show white count of 13.7, hemoglobin 9.3, hematocrit of 28.3, and platelet count is 307,000. . BUN of , creatinine 0.9, and glucose of 96. ASSESSMENT AND PLAN: 1. Coronary artery disease. The patient currently is asymptomatic from a cardiac perspective. Continue metoprolol 25 mg b.i.d. 2. Hypertension. Stable on metoprolol 25 mg b.i.d. again. 3. Dysphagia, status post G-tube placement. 4. Status post Biotronik pacemaker placement with normal function. The patient interrogation. 5. Chronic atrial fibrillation. Rate is stable on metoprolol. The patient was on Xarelto 50 mg daily in the past that was discontinued. 6. Severe dehydration and hypernatremia and azotemia and intravenous fluids. 7. Probable hospital-acquired pneumonia, on antibiotics. 8. osteomyelitis. 9. Right hip eschar. Thank you very much, Dr. Cruz, for allowing me to participate in the care of this patient. Please do not hesitate to contact me if you have any questions regarding my evaluation. Sincerely, Hal Davenport M.D. DR: NIDA JOB#: [id number] CC:
[2017-01-09] MEDS ORDERED: Colistin 150mg vial IVP SCH (10:30)
--- NOTE | 2017-01-09 10:47 | Internal Med Progress Note ---
Subjective Date of Service: Jan 09, 2017 Physician Name Bradley Holland Attending Physician Titi Cruz MD Current Medications Medications (Trade) Dose Ordered Sig/David Route PRN Reason Start Time Stop Time Status Last Admin Dose Admin Acetaminophen (Tylenol) 160 mg TID PRN GT Mild Pain/Temp > 100.5 01/03/17 11:00 02/02/17 10:59 01/08/17 05:40 Ascorbic Acid (Vitamin C) 500 mg DAILY GT 01/04/17 09:00 02/03/17 08:59 01/09/17 09:07 Bisacodyl (Dulcolax) 10 mg DAILYPRN PRN RECTAL Constipation 01/03/17 11:00 02/02/17 10:59 Colistimethate Sodium (Colistin) 75 mg EVERY 12 HOURS IVP 01/09/17 10:30 01/16/17 10:29 Dextrose (D5W 1000ml) 1,000 ml @ 75 mls/hr [id number] IV 01/03/17 11:30 02/02/17 11:29 01/09/17 00:44 Dextrose (Dextrose 50%) STAT PRN IV Hypoglycemia 01/03/17 11:00 02/02/17 10:59 Heparin Sodium (Porcine) (Heparin 5000 units/ml) 5,000 units EVERY 12 HOURS SUBQ 01/03/17 12:00 02/02/17 11:59 01/09/17 09:11 Magnesium Hydroxide (Mom) 30 ml DAILYPRN PRN GT Constipation 01/03/17 11:00 02/02/17 10:59 Metoprolol Tartrate (Lopressor) 25 mg Q12HR GT 01/03/17 21:00 02/02/17 20:59 01/08/17 20:29 Metronidazole (Flagyl) 100 ml @ 100 mls/hr Q8HR@0200,1000,1800 IVPB 01/07/17 02:00 01/14/17 01:59 01/09/17 09:11 Promethazine HCl/ Codeine 5 ml 5 ml Q6HR PRN ORAL For Cough 01/05/17 07:00 02/04/17 06:59 01/05/17 19:24 Sodium Hypochlorite (Dakin's Half Strength) 1 applic DAILY TOPIC 01/05/17 09:00 02/04/17 08:59 01/09/17 09:07 Sodium Hypochlorite (Dakin's Half Strength) 1 applic PRN PRN TOPIC soiled/dislodged 01/05/17 01:45 02/04/17 01:44 Tramadol HCl (Ultram) 50 mg Q8H PRN GT Moderate Pain (Pain Scale 4-6) 01/03/17 11:00 01/10/17 10:59 01/09/17 03:50 Vancomycin HCl 750 mg/Dextrose 275 ml @ 183.708 mls/hr ONCE ONCE IVPB 01/09/17 11:00 01/09/17 12:29 Vancomycin HCl 1 ea 1 ea DAILY PRN MISC Per rx protocol 01/09/17 09:15 02/08/17 09:14 Vancomycin HCl/ Dextrose (Vancomycin/D5W) 110 ml @ 110 mls/hr Q24H IVPB 01/10/17 11:00 01/15/17 10:59 Zinc Sulfate (Zinc Sulfate) 220 mg DAILY ORAL 01/04/17 09:00 02/03/17 08:59 01/09/17 09:07 Allergies: Coded Allergies: No Known Allergies (Unverified , 12/27/13) ROS Limited/Unobtainable: Yes Constitutional: Reports: no symptoms HEENT: Reports: no symptoms Cardiovascular: Reports: no symptoms Respiratory: Reports: no symptoms Gastrointestinal/Abdominal: Reports: no symptoms Genitourinary: Reports: no symptoms Neurologic/Psychiatric: Reports: no symptoms Subjective 86 YO F admitted with anemia and hypernatremia. Now pneumonia. Cover for Int Med-Dr Cruz. Objective Last Vital Signs Date Time Temp Pulse Resp B/P Pulse Ox O2 Delivery O2 Flow Rate FiO2 01/09/17 09:28 95/54 01/09/17 09:00 66 01/09/17 08:11 98.1 21 96 Room Air 01/09/17 04:00 3.0 01/08/17 19:30 28 Intake and Output 01/08/17 01/09/17 19:00 07:00 Intake Total 650 ml 1795.0 ml Output Total 350 ml 1600 ml Balance 300 ml 195.0 ml Free Water 50 ml 110 ml IV Total 375 ml 1190.0 ml Tube Feeding 225 ml 495 ml Output Urine Total 350 ml 1600 ml Objective General Appearance: moderate distress, cachetic, lethargic, thin EENT: PERRL/EOMI, normal ENT inspection Neck: non-tender, normal alignment, supple, normal inspection Cardiovascular: normal peripheral pulses, normal rate, regular rhythm, no gallop/murmur, no JVD Respiratory/Chest: decreased breath sounds, crackles/rales, rhonchi - bilaterally, expiratory wheezing Abdomen: non tender, soft, no organomegaly, no mass, decreased bowel sounds Skin: normal pigmentation, warm/dry Assessment/Plan Problem List: (1) Pneumonia Assessment & Plan: Pseudamonas and acinetobacter. Start zosyn and flagyl f- See ID consult-Dr Gandara (2) Hypertension Assessment & Plan: Cont lopressor (3) Diabetes mellitus (4) Peripheral vascular disease (5) Coronary artery disease (6) Atrial fibrillation (7) DVT (deep venous thrombosis) (8) Renal failure (9) Anemia Assessment & Plan: S/P transfusion 2 units PRBC on 01/03/17 (10) Alzheimer's dementia (11) Hypernatremia (12) Pacemaker (13) Hypotension Assessment & Plan: ?sepsis? NS bolus. Start zosyn and Flagyl for possible asp pneumonia (14) Osteomyelitis of sacrum Assessment & Plan: See ID note. Cont zosyn Status: progressing Assessment/Plan Discussed with daughters at bedside. BRADLEY HOLLAND Jan 09, 2017 10:46
[2017-01-09] MEDS ORDERED: Vancomycin 750mg/D5W 275ml IVPB ONE ×2 (11:00)
--- NOTE | 2017-01-09 11:00 | Internal Med Progress Note ---
Subjective Date of Service: Jan 08, 2017 Physician Name Bradley Holland Attending Physician Titi Cruz MD Current Medications Medications (Trade) Dose Ordered Sig/David Route PRN Reason Start Time Stop Time Status Last Admin Dose Admin Acetaminophen (Tylenol) 160 mg TID PRN GT Mild Pain/Temp > 100.5 01/03/17 11:00 02/02/17 10:59 01/08/17 05:40 Ascorbic Acid (Vitamin C) 500 mg DAILY GT 01/04/17 09:00 02/03/17 08:59 01/09/17 09:07 Bisacodyl (Dulcolax) 10 mg DAILYPRN PRN RECTAL Constipation 01/03/17 11:00 02/02/17 10:59 Colistimethate Sodium (Colistin) 75 mg EVERY 12 HOURS IVP 01/09/17 10:30 01/16/17 10:29 Dextrose (D5W 1000ml) 1,000 ml @ 75 mls/hr [id number] IV 01/03/17 11:30 02/02/17 11:29 01/09/17 00:44 Dextrose (Dextrose 50%) STAT PRN IV Hypoglycemia 01/03/17 11:00 02/02/17 10:59 Heparin Sodium (Porcine) (Heparin 5000 units/ml) 5,000 units EVERY 12 HOURS SUBQ 01/03/17 12:00 02/02/17 11:59 01/09/17 09:11 Magnesium Hydroxide (Mom) 30 ml DAILYPRN PRN GT Constipation 01/03/17 11:00 02/02/17 10:59 Metoprolol Tartrate (Lopressor) 25 mg Q12HR GT 01/03/17 21:00 02/02/17 20:59 01/08/17 20:29 Metronidazole (Flagyl) 100 ml @ 100 mls/hr Q8HR@0200,1000,1800 IVPB 01/07/17 02:00 01/14/17 01:59 01/09/17 09:11 Promethazine HCl/ Codeine 5 ml 5 ml Q6HR PRN ORAL For Cough 01/05/17 07:00 02/04/17 06:59 01/05/17 19:24 Sodium Hypochlorite (Dakin's Half Strength) 1 applic DAILY TOPIC 01/05/17 09:00 02/04/17 08:59 01/09/17 09:07 Sodium Hypochlorite (Dakin's Half Strength) 1 applic PRN PRN TOPIC soiled/dislodged 01/05/17 01:45 02/04/17 01:44 Tramadol HCl (Ultram) 50 mg Q8H PRN GT Moderate Pain (Pain Scale 4-6) 01/03/17 11:00 01/10/17 10:59 01/09/17 03:50 Vancomycin HCl 750 mg/Dextrose 275 ml @ 183.708 mls/hr ONCE ONCE IVPB 01/09/17 11:00 01/09/17 12:29 Vancomycin HCl 1 ea 1 ea DAILY PRN MISC Per rx protocol 01/09/17 09:15 02/08/17 09:14 Vancomycin HCl/ Dextrose (Vancomycin/D5W) 110 ml @ 110 mls/hr Q24H IVPB 01/10/17 11:00 01/15/17 10:59 Zinc Sulfate (Zinc Sulfate) 220 mg DAILY ORAL 01/04/17 09:00 02/03/17 08:59 01/09/17 09:07 Allergies: Coded Allergies: No Known Allergies (Unverified , 12/27/13) ROS Limited/Unobtainable: Yes Subjective 86 YO F admitted with anemia and hypernatremia. Now pneumonia. Late entry note for 01/08/17. Cover for Int Med-Dr Cruz. Objective Last Vital Signs Date Time Temp Pulse Resp B/P Pulse Ox O2 Delivery O2 Flow Rate FiO2 01/09/17 09:28 95/54 01/09/17 09:00 66 01/09/17 08:11 98.1 21 96 Room Air 01/09/17 04:00 3.0 01/08/17 19:30 28 Intake and Output 01/08/17 01/09/17 19:00 07:00 Intake Total 650 ml 1795.0 ml Output Total 350 ml 1600 ml Balance 300 ml 195.0 ml Free Water 50 ml 110 ml IV Total 375 ml 1190.0 ml Tube Feeding 225 ml 495 ml Output Urine Total 350 ml 1600 ml Objective General Appearance: moderate distress, cachetic, lethargic, thin EENT: PERRL/EOMI, normal ENT inspection Neck: non-tender, normal alignment, supple, normal inspection Cardiovascular: normal peripheral pulses, normal rate, regular rhythm, no gallop/murmur, no JVD Respiratory/Chest: decreased breath sounds, crackles/rales, rhonchi - bilaterally, expiratory wheezing Abdomen: non tender, soft, no organomegaly, no mass, decreased bowel sounds Skin: normal pigmentation, warm/dry Assessment/Plan Problem List: (1) Pneumonia Assessment & Plan: Pseudamonas and acinetobacter. Start zosyn and flagyl f- See ID consult-Dr Gandara (2) Hypertension Assessment & Plan: Cont lopressor (3) Diabetes mellitus (4) Peripheral vascular disease (5) Coronary artery disease (6) Atrial fibrillation (7) DVT (deep venous thrombosis) (8) Renal failure (9) Anemia Assessment & Plan: S/P transfusion 2 units PRBC on 01/03/17 (10) Alzheimer's dementia (11) Hypernatremia (12) Pacemaker (13) Hypotension Assessment & Plan: ?sepsis? NS bolus. Start zosyn and Flagyl for possible asp pneumonia (14) Osteomyelitis of sacrum Assessment & Plan: See ID note. Cont zosyn Status: not improved Assessment/Plan Discussed with daughters at bedside. BRADLEY HOLLAND Jan 09, 2017 11:00
[2017-01-09 11:46] VITALS: BP 94/55
--- NOTE | 2017-01-09 11:52 | General Progress Note ---
Assessment/Plan Problem List: (1) Anemia ICD Codes: D64.9 - Anemia, unspecified SNOMED: 514738098 Qualifiers: Qualified Codes: D64.9 - Anemia, unspecified (2) Diabetes mellitus ICD Codes: E11.9 - Type 2 diabetes mellitus without complications SNOMED: 20462399 (3) Coronary artery disease ICD Codes: I25.10 - Atherosclerotic heart disease of [place] coronary artery without angina pectoris SNOMED: 07627743 (4) Atrial fibrillation ICD Codes: I48.91 - Unspecified atrial fibrillation SNOMED: 46670490 (5) Attention to G-tube ICD Codes: Z43.1 - Encounter for attention to gastrostomy SNOMED: 104458504, 649330968 (6) Alzheimer's dementia ICD Codes: G30.9 - Alzheimer's disease, unspecified SNOMED: 77515245 Assessment/Plan neg stool OB stable H&H GTF fu Subjective ROS Limited/Unobtainable: No Allergies: Coded Allergies: No Known Allergies (Unverified , 12/27/13) Objective Last 24 Hour Vital Signs Date Time Temp Pulse Resp B/P Pulse Ox O2 Delivery O2 Flow Rate FiO2 01/09/17 11:46 97.7 64 21 94/55 96 Nasal Cannula 2.0 01/09/17 09:28 95/54 01/09/17 09:00 66 88/51 01/09/17 08:11 98.1 66 21 88/51 96 Room Air 01/09/17 04:00 97.3 66 20 118/63 99 Nasal Cannula 3.0 01/09/17 00:00 97.9 63 20 125/61 93 Nasal Cannula 3.0 01/08/17 20:29 67 116/59 01/08/17 19:30 Nasal Cannula 2.0 28 01/08/17 19:30 97 Nasal Cannula 2.0 28 01/08/17 19:00 97.9 67 20 116/59 99 Nasal Cannula 3.0 01/08/17 16:00 97.7 52 20 118/80 93 Nasal Cannula 3.0 01/08/17 12:44 Nasal Cannula 2.0 28 01/08/17 12:44 96 Nasal Cannula 2.0 28 01/08/17 11:52 98.6 117 19 106/44 95 Nasal Cannula 2.0 Intake and Output 01/08/17 01/09/17 19:00 07:00 Intake Total 650 ml 1795.0 ml Output Total 350 ml 1600 ml Balance 300 ml 195.0 ml Free Water 50 ml 110 ml IV Total 375 ml 1190.0 ml Tube Feeding 225 ml 495 ml Output Urine Total 350 ml 1600 ml Height (Feet): 5 Height (Inches): 3.00 Weight (Pounds): 95 General Appearance: no apparent distress EENT: normal ENT inspection Neck: supple Cardiovascular: normal rate Respiratory/Chest: decreased breath sounds Abdomen: normal bowel sounds, non tender, soft Extremities: non-tender GRETA MATIAS Jan 09, 2017 11:52
--- NOTE | 2017-01-09 15:25 | Cardiac Electrophysiology PN ---
Assessment/Plan Assessment/Plan 1. Coronary artery disease. The patient currently is asymptomatic from a cardiac perspective. Continue metoprolol 25 mg b.i.d. 2. Hypertension. On metoprolol 25 mg b.i.d. again. 3. Dysphagia, status post G-tube placement. 4. Status post Biotronik pacemaker placement with normal function. 5. Chronic atrial fibrillation. Rate is stable on metoprolol. [facility] ed. 6. Severe dehydration and hypernatremia and azotemia and intravenous fluids. 7. Probable hospital-acquired pneumonia, on antibiotics. 8. Sacral osteomyelitis. 9. Right hip eschar. DW daughter at bedside. Subjective Subjective Very weak. Nonverbal now. Daughter at bedside.Off tele. Objective Last 24 Hour Vital Signs Date Time Temp Pulse Resp B/P Pulse Ox O2 Delivery O2 Flow Rate FiO2 01/09/17 11:46 97.7 64 21 94/55 96 Nasal Cannula 2.0 01/09/17 09:28 95/54 01/09/17 09:00 66 88/51 01/09/17 08:11 98.1 66 21 88/51 96 Room Air 01/09/17 04:00 97.3 66 20 118/63 99 Nasal Cannula 3.0 01/09/17 00:00 97.9 63 20 125/61 93 Nasal Cannula 3.0 01/08/17 20:29 67 116/59 01/08/17 19:30 Nasal Cannula 2.0 28 01/08/17 19:30 97 Nasal Cannula 2.0 28 01/08/17 19:00 97.9 67 20 116/59 99 Nasal Cannula 3.0 01/08/17 16:00 97.7 52 20 118/80 93 Nasal Cannula 3.0 Intake and Output 01/08/17 01/09/17 19:00 07:00 Intake Total 650 ml 1795.0 ml Output Total 350 ml 1600 ml Balance 300 ml 195.0 ml Free Water 50 ml 110 ml IV Total 375 ml 1190.0 ml Tube Feeding 225 ml 495 ml Output Urine Total 350 ml 1600 ml Objective NECK: Showed no JVD. LUNGS: Coarse rhonchi. CARDIOVASCULAR: Shows regular S1 and S2 with no gallop or murmur. ABDOMEN: Soft and status post G-tube. EXTREMITIES: No pitting edema. STAR ROA Jan 09, 2017 15:24
[2017-01-09 16:00] VITALS: BP 104/61
[2017-01-09] MEDS ORDERED: Sterile Water Irrig 1000ml IRRIG ONE (19:05)
[2017-01-09] MEDS ORDERED: NS 275ml ONE (19:05)
[2017-01-09] MEDS ORDERED: Tubing IV Secondary IV ONE (19:05)
[2017-01-10] MEDS ORDERED: Vancomycin 500mg/D5W 110ml IVPB SCH ×2 (11:00)
--- NOTE | 2017-01-10 13:38 | Discharge Summary ---
Discharge Summary Hospital Course Date of Admission Jan 03, 2017 at 08:06 Date of Discharge Jan 09, 2017 at 19:06 Admitting Diagnosis HYPONATREMIA, ANEMIA HPI Iman Michaud is a 86 year old female who was admitted on Jan 03, 2017 at 08:06 for Hyponatremia,Anemia Hospital Course dc summary #[id number] Discharge Medications Continued Medications: Ascorbic Acid* (Vitamin C*) 500 Mg Tablet 500 MG ORAL DAILY, #30 TAB 0 Refills Bisacodyl (Dulcolax) 10 Mg Supp.rect 10 MG RC DAILY PRN for Constipation, SUPP Codeine/Promethazine Hcl* (Promethazine-Codeine Syrup*) 118 Ml Syrup 5 ML ORAL Q6H PRN for For Cough, ML 0 Refills Colistin (Colistimethate Na) (Colistimethate Sodium) 150 Mg Vial 75 MG IVPB, VIAL Colistin (Colistimethate Na) (Colistimethate) 150 Mg Vial 75 MG IVP EVERY 12 HOURS for 20 Days, VIAL Ertapenem Sodium* (INVanz*) 1 Gm Vial.port 1 GM IVPB Q24H for 20 Days, VIAL Heparin Sod (Porcine) (Heparin Sodium*) 5 000/1 Ml Vial 5000 UNITS SUBQ EVERY 12 HOURS, VIAL Magnesium Hydroxide* (Milk Of Magnesia*) 400 Mg/5 Ml Oral.susp 30 ML GT DAILY PRN for Constipation, ML Metoprolol Tartrate* (Metoprolol Tartrate*) 25 Mg Tablet 25 MG GT EVERY 12 HOURS, TAB Metronidazole/Sodium Chloride* (Metronidazole 500 Mg/100 Ml*) 500 Mg/100 Ml Piggyback 500 MG IVPB EVERY 8 HOURS, BAG Metronidazole/Sodium Chloride* (Metronidazole 500 Mg/100 Ml*) 500 Mg/100 Ml Piggyback 500 MG IVPB EVERY 8 HOURS for 14 Days, BAG Nitroglycerin (Nitroglycerin) 0.4 Mg Tab.subl 0.4 MG SL every 5 minutes PRN for For Pain, TAB Ondansetron* (Zofran*) 4 Mg/2 Ml Vial 4 MG IV Q6H PRN for Nausea & Vomiting, VIAL Sodium Hypochlorite (Dakin's) 473 Ml Solution 473 ML MC Tramadol Hcl* (Ultram*) 50 Mg Tablet 50 MG GT Q8HR PRN for For Pain, #30 TAB 0 Refills Vancomycin Hcl/D5w (Vancomycin-D5w 1 G/250 Ml) 1 Gm/250 Ml Plast..bag 500 MG IVPB Q24H, BAG Vancomycin Hcl/D5w (Vancomycin-D5w 1 G/250 Ml) 1 Gm/250 Ml Plast..bag 500 MG IVPB Q24H for 19 Days, BAG Zinc Sulfate (Zinc Sulfate*) 220 Mg Capsule 220 MG ORAL DAILY, CAP 0 Refills [acetaminophen] () 160 MG GT TID PRN for For Pain Discontinued Medications: Aspirin (Erlin Chewable) 81 Mg Tab.chew 81 MG PO DAILY, TAB Ertapenem Sodium* (INVanz*) 1 Gm Vial.port 1 GM IVPB Q24H, VIAL Hydrocodone Bit/Acetaminophen 5-325* ([place] 5-325 Tablet*) 1 Each Tablet 1 TAB GT Q8HR PRN for For Pain, TAB Multivitamins* (Multivitamins*) 1 Each Tablet 1 TAB ORAL DAILY, TAB 0 Refills Na Phos,M-B/Na Phos,Di-Ba* (Fleet Enema*) 133 Ml Enema 133 ML RECTAL DAILY PRN for Constipation, ML 0 Refills [lisinopril] () PO BID [novolog ss] () [provastatin] () PO HS [sensipar] () PO DAILY [xarelto] () PO DAILY Discharge Condition Upon Discharge: stable Discharge Disposition Patient was discharged to SNF/Subacute Facility(03) Discharge Diagnoses: Discharge Instructions Discharge Instructions Special Instructions I have been assigned to complete a D/C Summary on this account. I was not involved in the patient management Shanda Hanks NP ([facility]) Jan 10, 2017 13:38
--- NOTE | 2017-01-10 21:29 | Discharge Summary 2 SIG ---
DATE OF ADMISSION: 01/03/2017 DATE OF DISCHARGE: 01/09/2017 REASON FOR ADMISSION: 86-year-old female was sent to emergency room for evaluation for abnormal laboratories including anemia and hypernatremia. Laboratory work was done in the emergency department revealed hemoglobin of 7.5, hematocrit 24.4. Sodium 154. The patient was also noted to have evidence of acute kidney injury with BUN of 54 and creatinine 1.0. At the emergency room, the patient was started on the IV fluids, started blood transfusion. Chest x-ray revealed no acute cardiopulmonary disease. EKG revealed normal sinus rhythm with multiple premature ventricular contractions. The patient was admitted for further management. ADMITTING DIAGNOSES: 1. Hypernatremia likely depletional. 2. Acute anemia. 3. Acute kidney injury HOSPITAL STAY: The patient was admitted. The patient was started on IV fluids. ID, cardiology, and pulmonology followed. The urine culture revealed Latricia, per ID it was contaminated. Sputum culture revealed Pseudomonas and Acinetobacter MDR. Repeated chest x-ray with infiltrates, likely healthcare associated pneumonia as per ID. ID optimized antibiotic regimen. Dehydration resolved with volume repletion. Blood sugar was managed with sliding scale of insulin. The patient with chronic atrial fibrillation : rate control with beta-sebas and anticoagulation with Xarelto was continued. Blood pressure was managed with beta-sebas and was stable. Pacemaker was recently interrogated and showed no evidence of malfunctioning. The patient with a history of coronary artery disease . She was asymptomatic , no cardiac complaints. Continue beta-sebas. Strict aspiration precautions were maintained. G-tube feeding started. The patient was able to tolerate tube feeding. The patient recently was discharged from [facility] for acute sacral osteomyelitis. She need total six weeks of antibiotics as per ID recommendations. PICC line was placed prior to that. Osteomyelitis was confirmed by bone biopsy. The patient required transfusion of red blood cells. Anemia workup revealed low iron. CEA was within normal limits. Stool OB was negative. Gastrointestinal specialist was involved in the care of this patient. GI cleared the patient since the stool OB wasnegative, CEA within normal limits , unlikely gastrointestinal bleeding. Renal ultrasound revealed no hydronephrosis, no stones, normal echogenicity bilateral kidney but showed multilevel bilateral cysts. Renal parameters showed small improvement. The patient was seen by wound care nurse. Continue wound care as recommended by wound care nurse. DISCHARGE DIAGNOSIS: Acute kidney injury 2 to dehydration - resolved Hypernatremia- due to dehydration -resolved Dehydration HCAP/Pseudomonas, Acinetobacter MDR Acute sacral osteomyelitis Chronic atrial fibrillation CAD Pacemaker DM Acute anemia s/p blood transfusion Alzheimer's dementia DISCHARGE MEDICATIONS: See medication reconciliation list. DISCHARGE INSTRUCTIONS: The patient was discharged to residential facility. FOLLOWUP: Follow up with medical doctor at the facility. Titi Cruz M.D. I have been assigned to dictate discharge summary on this account and I was not involved in the patient's management. Shanda Hanks ([facility]tein) N.PSalas DR: ADA JOB#: [id number] CC: MARINA
== END 2017-01-09 19:06 | DRG 177 ==
LOC: EDBD 07:20 → EMR 08:02 → 4E 08:06 → EDUNIT# 08:06 → EDBEDREQ 09:08
PROC: 30233N1 Transfusion of Nonautologous Red Blood Cells into Peripheral Vein, Percutaneous Approach (ICD-10-PCS; principal; 2017-01-03)
DX: J15.1 Pneumonia due to Pseudomonas (principal); L89.154 Pressure ulcer of sacral region, stage 4; N17.9 Acute kidney failure, unspecified; E87.0 Hyperosmolality and hypernatremia; M86.18 Other acute osteomyelitis, other site; I82.5Z1 Chronic embolism and thrombosis of unspecified deep veins of right distal lower extremity; I48.0 Paroxysmal atrial fibrillation; G30.9 Alzheimer's disease, unspecified; E11.9 Type 2 diabetes mellitus without complications; B37.49 Other urogenital candidiasis; Z43.1 Encounter for attention to gastrostomy; J15.8 Pneumonia due to other specified bacteria; R13.10 Dysphagia, unspecified; I10 Essential (primary) hypertension; I25.10 Atherosclerotic heart disease of native coronary artery without angina pectoris; I73.9 Peripheral vascular disease, unspecified; I12.9 Hypertensive chronic kidney disease with stage 1 through stage 4 chronic kidney disease, or unspecified chronic kidney disease; N18.9 Chronic kidney disease, unspecified; I25.2 Old myocardial infarction; E86.0 Dehydration; Z95.0 Presence of cardiac pacemaker; Z79.01 Long term (current) use of anticoagulants; M19.90 Unspecified osteoarthritis, unspecified site; F02.80 Dementia in other diseases classified elsewhere, unspecified severity, without behavioral disturbance, psychotic disturbance, mood disturbance, and anxiety; D50.0 Iron deficiency anemia secondary to blood loss (chronic); D63.8 Anemia in other chronic diseases classified elsewhere
CPT/HCPCS: 36415; 71010; 76775; 80048; 80053; 81001; 82270; 82378; 82436; 82533; 82550; 82607; 82746; 82962; 83540; 83550; 83615; 83735; 83930; 83935; 84100; 84133; 84300; 84439; 84443; 84550; 85007; 85025; 85044; 85060; 85610; 85651; 85730; 86850; 86900; 86901; 86920; 87070; 87081; 87086; 87181; 87205; 89050; 93005; 94760